=== PATIENT | male | born 1985 | race Hispanic/Latino ===

== ENCOUNTER 2019-07-04 11:15 | Inpatient (IN) | payer SELFPAY ==
[~2019-07-04] VITALS: Ht 162.6 cm; Wt 104.3 kg
[2019-07-04] MEDS ORDERED: PANTOPRAZOLE 40 MG 10ML VIAL IV STA (11:26)
[2019-07-04] MEDS ORDERED: SODIUM CHLORIDE 0.9% 1000ML 1,000 ML IV STA ×2 (11:26→11:30)
[2019-07-04] MEDS ORDERED: MORPHINE SULFATE INJ 4 MG/ML INJ 1ML IV STA (11:26)
[2019-07-04] MEDS ORDERED: ONDANSETRON HCL INJ 2MG/ML 2ML 2 MG/ML VIAL IV STA (11:26)
[2019-07-04] MEDS ORDERED: PIPER-TAZ 3.375 GM 50 ML IV ONE (11:30)
--- NOTE | 2019-07-04 11:40 | NUR ---
20 ga IV insterted to left AC. blood samples collected for orders including lactic acid, and blood cultures x2.
[2019-07-04 11:47] LABS: BASOPHILS # (AUTO) 0.1 (0.0-0.1); BASOPHILS % 0.6 % (0.0-1.0); EOSINOPHILS # (AUTO) 0.5 (0.0-0.4); EOSINOPHILS % 4.6 % (0.0-6.0); HEMATOCRIT 43.6 % (38.2-49.6); HEMOGLOBIN 14.9 g/dL (14.0-18.0); LYMPHOCYTES # (AUTO) 1.2 (1.0-3.2); LYMPHOCYTES % 10.8 % (18.0-39.1); MEAN CORPUSCULAR HEMOGLOBIN 28.4 pg (28-32); MEAN CORPUSCULAR HGB CONC 34.2 g/dL (31-35); MONOCYTES # (AUTO) 0.9 (0.2-0.8); MONOCYTES % 7.8 % (4.4-11.3); NEUTROPHILS # (AUTO) 8.5 (2.1-6.9); NEUTROPHILS % 75.8 % (38.7-80.0); PLATELET COUNT 274 x10e3/uL (140-360); RED BLOOD COUNT 5.25 x10e6/uL (4.3-5.7); RED CELL DISTRIBUTION WIDTH 12.9 % (11.7-14.4)
[2019-07-04 11:58] LABS: INR 0.88; PARTIAL THROMBOPLASTIN TIME 26.8 seconds (23.8-35.5); PROTHROMBIN TIME 12.5 seconds (11.9-14.5)
[2019-07-04 12:09] LABS: ALANINE AMINOTRANSFERASE 36 IU/L (0-55); ALKALINE PHOSPHATASE 114 IU/L (40-150); ANION GAP 26.2 mmol/L (8-16); BLOOD UREA NITROGEN 5 mg/dL (7-26); BUN/CREATININE RATIO 6 (6-25); CALCIUM 9.9 mg/dL (8.4-10.2); CARBON DIOXIDE 12 mmol/L (22-29); CHLORIDE 98 mmol/L (98-107); CREATINE KINASE 40 IU/L (30-200); CREATININE, SERUM 0.79 mg/dL (0.72-1.25); EST GLOMERULAR FILTRATION RATE > 60 ML/MIN (60-); GLUCOSE 274 mg/dL (74-118); LIPASE 168 U/L (8-78); MAGNESIUM 1.6 MG/DL (1.3-2.1); POTASSIUM 4.2 mmol/L (3.5-5.1); SODIUM 132 mmol/L (136-145)
--- NOTE | 2019-07-04 12:11 | Emergency Department Note ---
History of Present Illnes History of Present Illness Chief Complaint: Abdominal Complaints History of Present Illness This is a 34 year old male here for diffuse abdominal pain since Tuesday. states that pain is worse after eating and drinking. denies vomiting. Historian: Patient Arrival Mode: Car El Teacher Required: No Onset (how long ago): day(s) (2) Location: abd Quality: pain Radiation: non-radiation Severity: severe Onset quality: gradual Timing of current episode: constant Progression: worsening Chronicity: new Context: recent illness Relieving factors: none Exacerbating factors: none Associated symptoms: other (nausea, no vomiting) Treatments prior to arrival: none Past Medical/Family History Physician Review I have reviewed the patient's past medical and family history. Any updates have been documented here. Past Medical History Recent Fever: No Clinical Suspicion of Infectio: Yes New/Unexplained Change in Ment: No Past Medical History: Hypertension, Diabetes, Hyperlipedemia Other Medical History: PANCREATITIS Past Surgical History: Cholecysctectomy Social History Smoking Cessation: Former smoker Counseling Performed: No Alcohol Use: Social Any Illegal Drug Use: No TB Exposure/Symptoms: No Physically hurt or threatened: No Family History Family history of heart diseas: No Other Any Pre-Existing Lines (PICC,: No Review of Systems Review of Systems Constitutional: no symptoms EENTM: no symptoms Cardiovascular: no symptoms Respiratory: no symptoms Gastrointestinal: abdominal pain, nausea Genitourinary: no symptoms Musculoskeletal: no symptoms Neurological: no symptoms Psychological: no symptoms Endocrine: no symptoms Hematological/Lymphatic: no symptoms Review of other systems All other systems reviewed and negative. Physical Exam Related Data Allergies: Coded Allergies: No Known Allergies (Unverified , 07/04/19) Triage Vital Signs Vital Signs Date Time Temp Pulse Resp B/P (MAP) Pulse Ox O2 Delivery O2 Flow Rate FiO2 07/04/19 11:23 97.8 126 18 137/100 98 Physical Exam CONSTITUTIONAL Constitutional: well-developed, well-nourished HENT HENT: normocephalic, atraumatic, oropharynx clear/moist, nose normal HENT L/R: left ext ear normal, right ext ear normal EYES Eyes: PERRL, conjunctivae normal NECK Neck: ROM normal PULMONARY Pulmonary: effort normal, breath sounds normal CARDIOVASCULAR Cardiovascular: regular rhythm, heart sounds normal, capillary refill normal, tachycardia GASTROINTESTINAL Abdominal: soft, bowel sounds normal, tender (mod DOIRE/RUQ) GENITOURINARY Genitourinary: exam deferred SKIN Skin: warm, dry MUSCULOSKELETAL Musculoskeletal: ROM normal NEUROLOGICAL Neurological: alert, oriented x 3, no gross motor or sensory deficits PSYCHOLOGICAL Psychological: mood/affect normal, judgement normal Results Laboratory Result Diagram: 07/04/19 1132 Laboratory Laboratory Tests Test 07/04/19 13:43 07/04/19 11:32 Arterial Blood pH 7.35 (7.35-7.45) Arterial Blood Partial Pressure CO2 40 mmHg (35-45) Arterial Blood Partial Pressure O2 mmHg (80-105) Arterial Blood HCO3 22 mmol/L (22-26) Arterial Blood Oxygen Saturation % (95-98) Arterial Blood Base Excess -3.0 mmol/L (-2 - 3) FiO2 21 % White Blood Count 11.25 x10e3/uL (4.8-10.8) Red Blood Count 5.25 x10e6/uL (4.3-5.7) Hemoglobin 14.9 g/dL (14.0-18.0) Hematocrit 43.6 % (38.2-49.6) Mean Corpuscular Volume 83.0 fL (81-99) Mean Corpuscular Hemoglobin 28.4 pg (28-32) Mean Corpuscular Hemoglobin Concent 34.2 g/dL (31-35) Red Cell Distribution Width 12.9 % (11.7-14.4) Platelet Count 274 x10e3/uL (140-360) Neutrophils (%) (Auto) 75.8 % (38.7-80.0) Lymphocytes (%) (Auto) 10.8 % (18.0-39.1) Monocytes (%) (Auto) 7.8 % (4.4-11.3) Eosinophils (%) (Auto) 4.6 % (0.0-6.0) Basophils (%) (Auto) 0.6 % (0.0-1.0) Neutrophils # (Auto) 8.5 (2.1-6.9) Lymphocytes # (Auto) 1.2 (1.0-3.2) Monocytes # (Auto) 0.9 (0.2-0.8) Eosinophils # (Auto) 0.5 (0.0-0.4) Basophils # (Auto) 0.1 (0.0-0.1) Absolute Immature Granulocyte (auto 0.04 x10e3/uL (0-0.1) Prothrombin Time 12.5 seconds (11.9-14.5) Prothromb Time International Ratio 0.88 Activated Partial Thromboplast Time 26.8 seconds (23.8-35.5) Sodium Level 132 mmol/L (136-145) Potassium Level 4.2 mmol/L (3.5-5.1) Chloride Level 98 mmol/L (98-107) Carbon Dioxide Level 12 mmol/L (22-29) Anion Gap 26.2 mmol/L (8-16) Blood Urea Nitrogen 5 mg/dL (7-26) Creatinine 0.79 mg/dL (0.72-1.25) Estimat Glomerular Filtration Rate > 60 ML/MIN (60-) BUN/Creatinine Ratio 6 (6-25) Glucose Level 274 mg/dL (74-118) Lactic Acid Level 1.0 mmol/L (0.5-2.0) Calcium Level 9.9 mg/dL (8.4-10.2) Magnesium Level 1.6 MG/DL (1.3-2.1) Total Bilirubin 0.7 mg/dL (0.2-1.2) Aspartate Amino Transf (AST/SGOT) 20 IU/L (5-34) Alanine Aminotransferase (ALT/SGPT) 36 IU/L (0-55) Alkaline Phosphatase 114 IU/L (40-150) Creatine Kinase 40 IU/L (30-200) Creatine Kinase MB 0.60 ng/mL (0-5.0) Troponin I < 0.001 ng/mL (0-0.300) Total Protein 8.1 g/dL (6.5-8.1) Albumin 4.0 g/dL (3.5-5.0) Globulin 4.1 g/dL (2.3-3.5) Albumin/Globulin Ratio 1.0 (0.8-2.0) Lipase 168 U/L (8-78) Laboratory Tests Test 07/04/19 11:32 White Blood Count 11.25 x10e3/uL (4.8-10.8) Red Blood Count 5.25 x10e6/uL (4.3-5.7) Hemoglobin 14.9 g/dL (14.0-18.0) Hematocrit 43.6 % (38.2-49.6) Mean Corpuscular Volume 83.0 fL (81-99) Mean Corpuscular Hemoglobin 28.4 pg (28-32) Mean Corpuscular Hemoglobin Concent 34.2 g/dL (31-35) Red Cell Distribution Width 12.9 % (11.7-14.4) Platelet Count 274 x10e3/uL (140-360) Neutrophils (%) (Auto) 75.8 % (38.7-80.0) Lymphocytes (%) (Auto) 10.8 % (18.0-39.1) Monocytes (%) (Auto) 7.8 % (4.4-11.3) Eosinophils (%) (Auto) 4.6 % (0.0-6.0) Basophils (%) (Auto) 0.6 % (0.0-1.0) Neutrophils # (Auto) 8.5 (2.1-6.9) Lymphocytes # (Auto) 1.2 (1.0-3.2) Monocytes # (Auto) 0.9 (0.2-0.8) Eosinophils # (Auto) 0.5 (0.0-0.4) Basophils # (Auto) 0.1 (0.0-0.1) Absolute Immature Granulocyte (auto 0.04 x10e3/uL (0-0.1) Prothrombin Time 12.5 seconds (11.9-14.5) Prothromb Time International Ratio 0.88 Activated Partial Thromboplast Time 26.8 seconds (23.8-35.5) Sodium Level 132 mmol/L (136-145) Potassium Level 4.2 mmol/L (3.5-5.1) Chloride Level 98 mmol/L (98-107) Carbon Dioxide Level 12 mmol/L (22-29) Anion Gap 26.2 mmol/L (8-16) Blood Urea Nitrogen 5 mg/dL (7-26) Creatinine 0.79 mg/dL (0.72-1.25) Estimat Glomerular Filtration Rate > 60 ML/MIN (60-) BUN/Creatinine Ratio 6 (6-25) Glucose Level 274 mg/dL (74-118) Lactic Acid Level 1.0 mmol/L (0.5-2.0) Calcium Level 9.9 mg/dL (8.4-10.2) Magnesium Level 1.6 MG/DL (1.3-2.1) Total Bilirubin 0.7 mg/dL (0.2-1.2) Aspartate Amino Transf (AST/SGOT) 20 IU/L (5-34) Alanine Aminotransferase (ALT/SGPT) 36 IU/L (0-55) Alkaline Phosphatase 114 IU/L (40-150) Creatine Kinase 40 IU/L (30-200) Creatine Kinase MB 0.60 ng/mL (0-5.0) Troponin I < 0.001 ng/mL (0-0.300) Total Protein 8.1 g/dL (6.5-8.1) Albumin 4.0 g/dL (3.5-5.0) Globulin 4.1 g/dL (2.3-3.5) Albumin/Globulin Ratio 1.0 (0.8-2.0) Lipase 168 U/L (8-78) Laboratory Tests Test 07/04/19 11:32 White Blood Count 11.25 x10e3/uL (4.8-10.8) Red Blood Count 5.25 x10e6/uL (4.3-5.7) Hemoglobin 14.9 g/dL (14.0-18.0) Hematocrit 43.6 % (38.2-49.6) Mean Corpuscular Volume 83.0 fL (81-99) Mean Corpuscular Hemoglobin 28.4 pg (28-32) Mean Corpuscular Hemoglobin Concent 34.2 g/dL (31-35) Red Cell Distribution Width 12.9 % (11.7-14.4) Platelet Count 274 x10e3/uL (140-360) Neutrophils (%) (Auto) 75.8 % (38.7-80.0) Lymphocytes (%) (Auto) 10.8 % (18.0-39.1) Monocytes (%) (Auto) 7.8 % (4.4-11.3) Eosinophils (%) (Auto) 4.6 % (0.0-6.0) Basophils (%) (Auto) 0.6 % (0.0-1.0) Neutrophils # (Auto) 8.5 (2.1-6.9) Lymphocytes # (Auto) 1.2 (1.0-3.2) Monocytes # (Auto) 0.9 (0.2-0.8) Eosinophils # (Auto) 0.5 (0.0-0.4) Basophils # (Auto) 0.1 (0.0-0.1) Absolute Immature Granulocyte (auto 0.04 x10e3/uL (0-0.1) Lab results reviewed: Yes Laboratory comments HIGH ANION GAP ACIDOSIS ON CHEM'S, GLU ELEVATED AT 274 - ABG IS GOOD WITH pH 7.35, pCO2 40, HCO3 22.3 Imaging Imaging results reviewed: Yes Impressions X-ray chest AP portable Comparison: None History: Epigastric pain Findings: Apical lordotic view with slight rotation. Central airways, cardiomediastinal silhouettes, diaphragms or lung garcia, pleural spaces, visualized skeletal structures and upper abdomen unremarkable for significant malady. Impression: No acute abnormality on this exam. Signed by: Travis Carmona MD on 07/04/2019 1:[address] of the abdomen and pelvis. Comparison: None Clinical History: Abdominal pain Technique: Helical CT scan of the abdomen and pelvis was performed. Intravenous contrast administration was utilized. Oral contrast administration was not utilized. Coronal and sagittal reconstructions were generated from the raw data. Multiple images were submitted for interpretation. This exam was performed according to our departmental dose-optimization program which includes automated exposure control, adjustment of the mA and/or kV according to patient size Discussion: Inferior chest: Unremarkable. Liver: Diffuse fatty infiltration Spleen: Unremarkable Pancreas: Acute pancreatitis most marked in the region of the pancreatic head neck and proximal body with extension of infiltration and inflammation into the peripancreatic regions and the small bowel mesentery. No definite necrosis. No definite air to suggest abscess formation. No pseudocysts. Biliary tree and gallbladder: Post cholecystectomy. Otherwise unremarkable. Adrenal glands: Unremarkable Kidneys and ureters: Small cortical renal cysts to small to characterize. Otherwise unremarkable Vasculature: Unremarkable Lymph nodes: Unremarkable Bowel: Unremarkable Pelvis: Urinary bladder is unremarkable. Prostate unremarkable. Seminal vesicles unremarkable. Pelvic wall unremarkable. Peritoneum: No ascites Perineal compartments: unremarkable. Fluid: As above Bones: Minimal degenerative changes Body wall: Unremarkable Impression: Findings of acute pancreatitis as described above. 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 Assessment & Plan Reassessment Reassessment 1525 - pt still in pain. Will admit to on-call Dr Reed Assessment & Plan Final Impression: (1) Pancreatitis, alcoholic, acute Assessment & Plan CHECK CBC, CHEM'S, LIPASE, UA, CX'S, CT ABD/PELVIS, ABG - R/O PANCREATITIS, COLITIS, RENAL INSUFF, ELECTROLYTE ABNL, DKA Last Vital Signs Date Time Temp Pulse Resp B/P (MAP) Pulse Ox O2 Delivery O2 Flow Rate FiO2 07/04/19 11:23 97.8 126 18 137/100 98 Medications in the ED Pantoprazole Sodium 40 mg ONCE STAT IV ; Start 07/04/19 at 11:26; Stop 07/04/19 at 11:27 Morphine Sulfate 4 mg ONCE STAT IV ; Start 07/04/19 at 11:26; Stop 07/04/19 at 11:27 Ondansetron HCl 4 mg ONCE STAT IV ; Start 07/04/19 at 11:26; Stop 07/04/19 at 11:27 Sodium Chloride 1,000 ml @ 0 mls/hr Q0M STAT IV ; Start 07/04/19 at 11:26; Stop 07/04/19 at 11:27 Piperacillin Sod/ Tazobactam Sod 50 ml @ 50 mls/hr NOW ONCE IV ; Start 07/04/19 at 11:30; Stop 07/04/19 at 12:29 Sodium Chloride 1,000 ml @ 0 mls/hr Q0M STAT IV ; Start 07/04/19 at 11:30; Stop 07/04/19 at 11:31 AV BECKWITH MD July 04, 2019 12:11
--- NOTE | 2019-07-04 12:30 | NUR ---
unable to verify home medications at this time. Patient states that he takes metformin for DM, but does not know the dose. He also states that he takes medication for cholesterol, but does not know the name. He denies the use of blood pressure medications.
[2019-07-04] MEDS ORDERED: SODIUM CHLORIDE 0.9% 50ML 50 ML ONE (12:44)
[2019-07-04] MEDS ORDERED: IOPAMIDOL 370 MG/ML 200 ML INFUS..BTL INJ ONE (12:45)
--- NOTE | 2019-07-04 13:10 | Diagnostic Imaging Report ---
X-ray chest AP portable Comparison: None History: Epigastric pain Findings: Apical lordotic view with slight rotation. Central airways, cardiomediastinal silhouettes, diaphragms or lung garcia, pleural spaces, visualized skeletal structures and upper abdomen unremarkable for significant malady. Impression: No acute abnormality on this exam. Signed by: Travis Carmona MD on 07/04/2019 1:06 PM
[2019-07-04 14:10] LABS: ABG HCO3 22 mmol/L (22-26); ABG PCO2 40 mmHg (35-45); ABG PH 7.35 (7.35-7.45)
--- NOTE | 2019-07-04 14:56 | Diagnostic Imaging Report ---
CT of the abdomen and pelvis. Comparison: None Clinical History: Abdominal pain Technique: Helical CT scan of the abdomen and pelvis was performed. Intravenous contrast administration was utilized. Oral contrast administration was not utilized. Coronal and sagittal reconstructions were generated from the raw data. Multiple images were submitted for interpretation. This exam was performed according to our departmental dose-optimization program which includes automated exposure control, adjustment of the mA and/or kV according to patient size Discussion: Inferior chest: Unremarkable. Liver: Diffuse fatty infiltration Spleen: Unremarkable Pancreas: Acute pancreatitis most marked in the region of the pancreatic head neck and proximal body with extension of infiltration and inflammation into the peripancreatic regions and the small bowel mesentery. No definite necrosis. No definite air to suggest abscess formation. No pseudocysts. Biliary tree and gallbladder: Post cholecystectomy. Otherwise unremarkable. Adrenal glands: Unremarkable Kidneys and ureters: Small cortical renal cysts to small to characterize. Otherwise unremarkable Vasculature: Unremarkable Lymph nodes: Unremarkable Bowel: Unremarkable Pelvis: Urinary bladder is unremarkable. Prostate unremarkable. Seminal vesicles unremarkable. Pelvic wall unremarkable. Peritoneum: No ascites Perineal compartments: unremarkable. Fluid: As above Bones: Minimal degenerative changes Body wall: Unremarkable Impression: Findings of acute pancreatitis as described above. Signed by: Travis Carmona MD on 07/04/2019 2:53 PM
[2019-07-04] MEDS ORDERED: HYDROMORPHONE 1MG/1ML INJ IV PRN (15:45)
[2019-07-04] MEDS ORDERED: DEXTROSE 50% SYRINGE 50 ML IV PRN ×2 (15:45→23:00)
[2019-07-04 15:51] LABS: CHOL/HDL RATIO 15.8 (3.9-4.7); CHOLESTEROL 395 MD/DL (0-199); HDL CHOLESTEROL 25 MG/DL (40-60)
[2019-07-04 16:12] LABS: TRIGLYCERIDES 1948 MG/DL (0-149)
[2019-07-04] MEDS: INSULIN LISPRO 100 UNIT/1 ML 3ML VIAL SQ SCH ×2 (16:30→21:00)
[2019-07-04 16:33] LABS: BILIRUBIN,URINE SMALL (NEGATIVE); CLARITY,URINE SL CLOUDY (CLEAR); COLOR,URINE YELLOW (YELLOW); KETONES,URINE 2+ (NEGATIVE); LEUKOCYTE ESTERASE ,URINE NEGATIVE (NEGATIVE); NITRITE,URINE NEGATIVE (NEGATIVE); PROTEIN,URINE DIPSTICK 1+ (NEGATIVE); URINE UROBILINOGEN 0.2 mg/dL (0.2 - 1)
[2019-07-04 16:34] LABS: AMPHETAMINES SCREEN,URINE NEGATIVE (NEGATIVE); BENZODIAZEPINES SCREEN,URINE NEGATIVE (NEGATIVE); PHENCYCLIDINE SCREEN,URINE NEGATIVE (NEGATIVE)
[2019-07-04 16:56] LABS: BACTERIA,URINE FEW /HPF; RBC,URINE 0-5 /HPF (0-5)
[2019-07-04] MEDS: SODIUM CHLORIDE 0.9% 1000ML 1,000 ML IV SCH ×2 (17:29→20:32)
[2019-07-04] MEDS: ONDANSETRON HCL INJ 2MG/ML 2ML 2 MG/ML VIAL IV PRN ×2 (17:30→21:47)
--- NOTE | 2019-07-04 17:32 | NUR ---
attempted to call report, nurse not available at the moment.
--- NOTE | 2019-07-04 18:00 | NUR ---
Covid test performed.
--- NOTE | 2019-07-04 18:30 | NUR ---
RECEIVED PATIENT FROM ER TO ROOM 284, PATIENT IN STABLE CONDITION. IV LINE TO LEFT AC PATENT, NS @ 125CC/HR. ADMISSION HISTORY AND INITIAL PHYSICAL ASSESSMENT COMPLETED AND DOCUMENTED. PATIENT ORIENTED TO ROOM AND POLICIES. CALL LIGHT WITHIN REACH. BED IN THE LOWEST POSITION.
[2019-07-04 18:32] VITALS: BP 122/83
[2019-07-04] MEDS ORDERED: METFORMIN HCL500 MG PO (18:32)
[2019-07-04 18:38] VITALS: BP 122/83
--- NOTE | 2019-07-04 18:52 | NUR ---
BEDSIDE SHIFT REPORT GIVEN TO ONCOMING NURSE. PATIENT IS IN STABLE CONDITION, NO ACUTE DISTRESS NOTED. CALL LIGHT WITHIN REACH. BED IN THE LOWEST POSITION.
--- NOTE | 2019-07-04 19:30 | NUR ---
patient received awake, alert, lying quietly in bed. no c/o pain noted. ivf continue to infuse without difficulty. Telemetry #20 placed on patient per orders due to elevated heart rate. pm assessment complete. patient instructed to call for assistance when needed.
[2019-07-04 20:00] VITALS: BP 155/91
[2019-07-04 21:20] VITALS: BP 135/91
[2019-07-04] MEDS: HYDROMORPHONE 1MG/1ML INJ IV PRN (21:47)
--- NOTE | 2019-07-04 21:47 | NUR ---
patient medicated with dilaudid 0.5mg and zofran 4mg ivp given for c/o right lower back/abd pain 08/23 at this time per patients request.
[2019-07-04] MEDS ORDERED: HYDRALAZINE HCL 20 MG/ML VIAL IV PRN (23:15)
--- NOTE | 2019-07-04 23:30 | NUR ---
here to see patient. new orders noted.
[2019-07-04] MEDS: SODIUM BICARBONATE 650 MG TAB PO SCH (23:48)
[2019-07-04] MEDS: ENOXAPARIN SOD INJ 40 MG/0.4 ML SYR SC SCH (23:48)
[2019-07-04] MEDS: MEROPENEM 500MG 500 MG in SODIUM CHLORIDE 0.9% 50ML 50 ML IV SCH (23:48)
[2019-07-04] MEDS ORDERED: MEROPENEM 500MG/ NS 50ML 50 ML ONE (23:48)
[2019-07-04] MEDS: LACTATED RINGER'S 1,000 ML INJ SCH (23:48)
[2019-07-05] VITALS (8 sets, daily range): BP systolic 124–146; BP diastolic 78–89
--- NOTE | 2019-07-05 | NUR ---
stat bmp collected and sent to lab at this time.
[2019-07-05 00:47] LABS: ANION GAP 17.6 mmol/L (8-16); BLOOD UREA NITROGEN 5 mg/dL (7-26); BUN/CREATININE RATIO 8 (6-25); CALCIUM 8.8 mg/dL (8.4-10.2); CARBON DIOXIDE 18 mmol/L (22-29); CHLORIDE 100 mmol/L (98-107); CREATININE, SERUM 0.62 mg/dL (0.72-1.25); EST GLOMERULAR FILTRATION RATE > 60 ML/MIN (60-); GLUCOSE 170 mg/dL (74-118); POTASSIUM 3.6 mmol/L (3.5-5.1); SODIUM 132 mmol/L (136-145)
--- NOTE | 2019-07-05 00:52 | NUR ---
stat bmp results called to at this time per orders. no new orders noted at this time.
--- NOTE | 2019-07-05 02:26 | History and Physical ---
CHIEF COMPLAINT: Abdominal pain, acute pancreatitis. HISTORY OF PRESENT ILLNESS: A 34-year-old male, morbidly obese, with known history of hypertension, hyperlipidemia, chronic alcohol abuse, very noncompliant with his medical care, comes into the ED with complaints of abdominal pain. The patient reports that he has had several episodes of acute pancreatitis in the past due to alcohol abuse. He reports his last alcohol drink was Tuesday of this last week. He reports drinking 6 cans of beer. He suddenly noticed acute onset of abdominal pain over the last day or 2 and came into the ED for further evaluation and management. While here, his CT scan shows evidence of acute pancreatitis with severe inflammation. No evidence of pseudocyst or pseudo collection. Lipase level was slightly elevated, but has elevated triglycerides. The patient was seen and evaluated at bedside on the medical floor. He is currently doing well with no other issues at this time. REVIEW OF SYSTEMS: Pertinent positives; abdominal pain and nausea. The rest of 14-point review of systems are reviewed with the patient and are negative. ALLERGIES: NO KNOWN DRUG ALLERGIES. HOME MEDICATIONS: Metformin 500 mg twice daily, that is it. PAST MEDICAL HISTORY: Diabetes, hypertension, chronic alcohol abuse, hyperlipidemia, history of chronic pancreatitis in the past due to alcohol abuse. PAST SURGICAL HISTORY: Reports none. FAMILY HISTORY: Hypertension and diabetes. SOCIAL HISTORY: He is a chronic drinker. He used to drink at least 6-pack a day. He has decreased. He states his last drink he reports was Tuesday of this last week. He drinks 6 beers. He is a smoker. Denies drugs. Does not work. PHYSICAL EXAMINATION: VITAL SIGNS: Temperature is 98.1, pulse 111, respiratory rate is 20, blood pressure was 155/91, and pulse ox 98% on room air. GENERAL: He was resting comfortably when I evaluated him. He was watching TV. Not in acute distress, alert and oriented x3. He was cooperative. PULMONARY: Clear to auscultation bilaterally. No wheezing, rales, or rhonchi. No crackles appreciated. CARDIOVASCULAR: Positive S1 and S2. No murmurs, rubs, or gallops appreciated. ABDOMEN: He was tender to palpation in the epigastric region, but very mild, but was receiving pain medications. No rebound. No guarding. Bowel sounds were present. MUSCULOSKELETAL: Strength is 5/5 throughout. NEUROLOGIC: Cranial nerves II through XII grossly intact. SKIN: Intact, warm to touch. Good cap refill. PSYCHIATRIC: Normal affect and mood. EXTREMITIES: No edema. Good range of motion throughout. LABORATORY DATA: White count 11.2, hemoglobin 14.9, hematocrit is 44, and platelets of 274. His ABG shows a pH of 7.35, pCO2 of 40, bicarbonate 22, FiO2 of 21. Coagulation; PT 12, INR 0.88, PTT 26.8. Chemistry; sodium 132, potassium 4.2, chloride 98, bicarbonate was 12, anion gap of 26, BUN 5, creatinine is 0.79, glucose was 274, repeat point of care was 201. Lactic acid 1, calcium 9.9, magnesium 1.6, total bilirubin is 0.7, AST 20, ALT 32, alkaline phosphatase 114. CK 40. Troponins negative. Albumin 4. Triglycerides are 1948, LDL was unmeasurable, lipase 168. Urinalysis negative. Urine drug screen positive for opioids. Coronavirus PCR pending. Blood and urine cultures are pending. IMAGING STUDIES: CT abdomen and pelvis shows findings consistent with acute pancreatitis in the region of the pancreatic head, neck, proximal body with extensive of infiltration and inflammation into the peripancreatic regions and in the small bowel mesentery. No definite necrosis. No definite air to assess abscess formation or pseudocyst. Chest x-ray, no acute abnormality. IMPRESSION: 1. Acute pancreatitis secondary to alcohol abuse. 2. Chronic alcohol abuse. 3. Uncontrolled type 2 diabetes. 4. Hyperlipidemia. 5. Hypertension. 6. Metabolic acidosis. PLAN: At this time for his acute pancreatitis, we will continue the patient on n.p.o. We will put him on Lactated Ringer at 150 mL/h, pain control, GI consultation, get lipase level repeat in the morning. We will keep the patient n.p.o. for now and consider initiation of diet if his symptoms improve tomorrow. Continue with insulin sliding scale, Accu-Cheks, get an A1c in the morning. Resume same home medications except for the metformin. Add losartan for blood pressure as well as p.r.n. hydralazine. Add sodium bicarbonate tablets 1300 mg twice daily, first dose now. We will get labs in the morning. We will get a serum ketone as well stat now with stat labs. Otherwise, we will continue to monitor very closely. I did add Lipitor for his hypertriglyceridemia. May need to add Tricor for as well. Put on Lovenox for DVT prophylaxis. Plan of care discussed with the patient and nursing staff. The patient was stable prior to me leaving and he was doing well with no other issues. MD WILLIAM Resendiz/EMILY /[id number]
[2019-07-05] MEDS: ONDANSETRON HCL INJ 2MG/ML 2ML 2 MG/ML VIAL IV PRN ×5 (04:00→20:43)
[2019-07-05] MEDS: HYDROMORPHONE 1MG/1ML INJ IV PRN ×5 (04:00→20:43)
--- NOTE | 2019-07-05 04:00 | NUR ---
patient medicated with dilaudid 0.5mg and zofran 4mg ivp for c/o right abd/back 08/23 at this time per patients request.
[2019-07-05] MEDS: MEROPENEM 500MG 500 MG in SODIUM CHLORIDE 0.9% 50ML 50 ML IV SCH (05:26)
[2019-07-05] MEDS ORDERED: MEROPENEM 500MG/ NS 50ML 50 ML ONE (05:27)
[2019-07-05 06:35] LABS: BASOPHILS % 0.6 % (0.0-1.0); EOSINOPHILS # (AUTO) 0.5 (0.0-0.4); EOSINOPHILS % 7.3 % (0.0-6.0); HEMATOCRIT 37.1 % (38.2-49.6); HEMOGLOBIN 12.2 g/dL (14.0-18.0); LYMPHOCYTES # (AUTO) 1.3 (1.0-3.2); LYMPHOCYTES % 19.7 % (18.0-39.1); MEAN CORPUSCULAR HGB CONC 32.9 g/dL (31-35); MEAN CORPUSCULAR VOLUME 85.3 fL (81-99); MONOCYTES # (AUTO) 0.6 (0.2-0.8); MONOCYTES % 8.9 % (4.4-11.3); NEUTROPHILS # (AUTO) 4.2 (2.1-6.9); PLATELET COUNT 191 x10e3/uL (140-360); RED BLOOD COUNT 4.35 x10e6/uL (4.3-5.7)
--- NOTE | 2019-07-05 06:40 | NUR ---
Received bedside shift report from off going nurse. Patient is resting in bed, no acute distress noted. Call light within reach. Bed in the lowest position.
[2019-07-05 07:00] LABS: ALANINE AMINOTRANSFERASE 36 IU/L (0-55); ALBUMIN 3.2 g/dL (3.5-5.0); ALKALINE PHOSPHATASE 104 IU/L (40-150); BLOOD UREA NITROGEN 5 mg/dL (7-26); BUN/CREATININE RATIO 8 (6-25); CALCIUM 9.1 mg/dL (8.4-10.2); CARBON DIOXIDE 21 mmol/L (22-29); CHLORIDE 100 mmol/L (98-107); CREATININE, SERUM 0.62 mg/dL (0.72-1.25); EST GLOMERULAR FILTRATION RATE > 60 ML/MIN (60-); GLUCOSE 177 mg/dL (74-118); LIPASE 103 U/L (8-78); SODIUM 135 mmol/L (136-145)
[2019-07-05] MEDS: LACTATED RINGER'S 1,000 ML INJ SCH ×3 (07:13→20:43)
[2019-07-05] MEDS: INSULIN LISPRO 100 UNIT/1 ML 3ML VIAL SQ SCH ×4 (07:30→21:00)
[2019-07-05] MEDS: SODIUM BICARBONATE 650 MG TAB PO SCH ×2 (08:00→16:40)
[2019-07-05] MEDS: LOSARTAN POTASSIUM 25 MG TAB PO SCH (08:00)
--- OUTSIDE RECORDS SUMMARY | 2019-07-05 08:54 | XMS REPORT | Clinical Summary ---
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 8 diagnosed diabetes Active lancets 28 Use 2 times 100 Each 11 gaugeIndications: Type 2 daily as 8 diabetes mellitus without needed complication, with long-term current use of insulin Active blood glucose (PRECISION Check blood 50 Each 11 0 XTRA TEST STRIPS) test glucose 2 8 stripsIndications: Type 2 times daily diabetes mellitus without complication, with long-term current use of insulin 09/13/2018 Discontinued (Reorder) lisinopril (PRINIVIL) 5 Take 1 tablet 90 tablet 0 mg tabletIndications: by mouth 8 Essential hypertension daily. 09/13/2018 Discontinued (Therapy comple obey) INSULIN SYRINGE 0.5mL Use to inject 2 Box 3 30GX5/16" (MONOJECT medication 5 8 ULTRACOMFORT INSULIN SYR times daily. 0.5ML 30GX5/16") Use a new syringe-needleIndications syringe each : Type 2 diabetes time. mellitus without complication, with long-term current use of insulin 09/13/2018 Discontinued (Reorder) metFORMIN (GLUCOPHAGE) Take 1 tablet 60 tablet 3 1 500 mg tabletIndications: by mouth 2 8 Type 2 diabetes mellitus times daily without complication, (with meals) with long-term current For diabetes. use of insulin 09/13/2018 Discontinued (Reorder) atorvastatin (LIPITOR) 20 Take 1 tablet 90 tablet 1 mg tabletIndications: by mouth at 8 Hyperlipidemia, bedtime unspecified nightly. hyperlipidemia type 09/13/2018 Discontinued (Therapy comple obey) ibuprofen (MOTRIN) 800 mg Take 1 tablet 60 tablet 0 tabletIndications: by mouth 9 Lateral epicondylitis of every 8 hours left elbow as needed for Pain. 09/13/2018 tropicamide (MYDRIACYL) Instill 1 15 mL 0 0.5 % ophthalmic Drop in each 9 solutionIndications: Type eye once as 2 diabetes mellitus needed for up without complication, to 1 dose with long-term current (for poor use of insulin retina scan image). 09/13/2018 Discontinued (Reorder) metFORMIN (GLUCOPHAGE) Take 1 tablet 180 tablet 0 0 500 mg tabletIndications: by mouth 2 9 Type 2 diabetes mellitus times daily without complication, (with meals) with long-term current For diabetes. use of insulin 09/13/2018 Discontinued (Reorder) atorvastatin (LIPITOR) 20 Take 1 tablet 90 tablet 0 mg tabletIndications: by mouth at 9 Hyperlipidemia, bedtime unspecified nightly. hyperlipidemia type 09/13/2018 Discontinued (Reorder) lisinopril (PRINIVIL) 5 Take 1 tablet 90 tablet 0 mg tabletIndications: by mouth 9 Essential hypertension daily. 09/13/2018 Discontinued (Reorder) fenofibrate Take 1 tablet 90 tablet 0 nanocrystallized (TRICOR) by mouth 9 145 mg tabletIndications: daily. Hypertriglyceridemia 06/14/2019 Discontinued (Therapy comple obey) atorvastatin (LIPITOR) 20 Take 1 tablet 90 tablet 0 mg tabletIndications: by mouth at 9 Hyperlipidemia, bedtime unspecified nightly. hyperlipidemia type 06/14/2019 Discontinued (Therapy comple obey) fenofibrate Take 1 tablet 90 tablet 0 nanocrystallized (TRICOR) by mouth 9 145 mg tabletIndications: daily. Hypertriglyceridemia 06/14/2019 Discontinued (Therapy comple obey) lisinopril (PRINIVIL) 5 Take 1 tablet 90 tablet 0 mg tabletIndications: by mouth 9 Essential hypertension daily. 06/14/2019 Discontinued (Therapy comple obey) metFORMIN (GLUCOPHAGE) Take 1 tablet 180 tablet 0 0 500 mg tabletIndications: by mouth 2 9 Type 2 diabetes mellitus times daily without complication, (with meals) with long-term current For diabetes. use of insulin 06/14/2019 Discontinued (Therapy comple obey) ibuprofen (MOTRIN) 400 mg Take 1 tablet 60 tablet 1 tabletIndications: Elbow by mouth 9 pain, chronic, left every 12 hours as needed for Pain (take with food). Active Problems Problem Noted Date Essential hypertension 11/10/2017 Encounters Care Team Description Date Type Specialty Trung Bradshaw MD Rash and other nonspecific skin eruption (Primary Dx) 06/14/2019 Telemedicine Family Practice Trung Bradshaw MD 09/13/2018 Ancillary Radiology Procedure Trung Bradshaw MD Type 2 diabetes mellitus without complic ation, with long-term current use of insulin 09/13/2018 Ancillary Ophthalmology Procedure Trung Bradshaw MD Elbow pain, chronic, left (Primary Dx); Type 2 diabetes mellitus without complication, with long-term current use of insulin; Hyperlipidemia, unspecified hyperlipidemia type; Essential hypertension; Hypertriglyceridemia 09/13/2018 Office Visit Family Practice Dominga Monaco NP Lateral epicondylitis of left elbow (Arianne samia Dx); Type 2 diabetes mellitus without complication, without long-term current use of insulin 07/26/2018 Same Day Family Practice after 07/03/2018 Immunizations Name Administration Dates Next Due Influenza, 12/19/2017 Vaccine<FLUCELVAX>(Multi- Dose) PPV 23 (Pneumococcal 11/10/2017 Polysaccharide 23 Valent) Tdap (Tetanus Toxoid, 11/10/2017 Reduced Diphtheria Toxoid And Acellular Pertussis, Absorbed) Family History Relation Name Status Comments Brother 1 Father Alive Maternal Grandfather Maternal Grandmother Alive Mother Alive Paternal Grandfather Paternal Grandmother Sister 1 Alive Social History Date Tobacco Use Types Packs/Day Years Used Current Every Day Smoker Smokeless Tobacco: Never Used Tobacco Cessation: Counseling Given: Yes Drinks/Week oz/Week Comments Alcohol Use vodka Yes Food Insecurity Answer Date Recorded Within the past 12 months, you worried that your Never andrew e 11/10/2017 food would run out before you got money to buy more. Within the past 12 months, the food you bought Never true 11/10/2017 just didn't last and you didn't have mo donna to get more. Sex Assigned at Date Recorded Not on file Industry Job Start Date Occupation Not on file Not on file Not on file Travel End Travel History Travel Start No recent travel history available. Date Recorded COVID-19 Exposure Response 06/14/2019 2:05 PM CDT In the last month, have you been in contact with No / Unsure someone who was confirmed or suspected to have Coronavirus / COVID-19? Last Filed Vital Signs Reading Time Taken Comments Vital Sign 130/85 09/13/2018 10:44 AM CDT Blood Pressure 98 09/13/2018 11:36 AM CDT manual radial pu lse Pulse 36.9 C (98.5 F) 09/13/2018 10:44 AM CDT Temperature 18 09/13/2018 10:44 AM CDT Respiratory Rate 100% 07/26/2018 3:25 PM CDT Oxygen Saturation - - Inhaled Oxygen Concentration 109.7 kg (241 lb 12.8 oz) 09/13/2018 10:44 AM CDT Weight 162.6 cm (5' 4") 09/13/2018 10:44 AM CDT Height 41.5 09/13/2018 10:44 AM CDT Body Mass Index Plan of Treatment Care Team Description Date Type Specialty 09/07/2019 Office Visit Dermatology Health Maintenance Due Date Last Done Comments DM Microalbumin Urine 11/10/2018 11/10/2017 Scrn (Yearly) DM Foot Exam (Yearly) 12/19/2018 12/19/2017, 10/16, 09/23/2017 DM HGBA1C (Yearly) 09/14/2019 09/13/2018, 018, 11/10/2017 DM Retinal Exam (Yearly) 09/14/2019 09/13/2018, 0 11/10/2017 IMM Influenza Seasonal 11/15/2019 12/19/2017 Oct to April (>/= 19 yrs) Procedures Comments Procedure Name Priority Date/Time Associated Diag nosis XRAY ELBOW 3 VIEWS MIN Routine 09/13/2018 Essenti al hypertension 12:55 PM CDT COMPREHENSIVE METABOLIC Routine 09/13/2018 Type 2 diabetes mellitus PANEL 11:59 AM CDT without complicatio n, with long-term current use of insulin HEMOGLOBIN A1C Routine 09/13/2018 Type 2 diabetes mellitus 11:59 AM CDT without complication, with long-term current use of insulin LIPID PROFILE Routine 09/13/2018 Type 2 diabetes mellitus 11:59 AM CDT without complication, with long-term current use of insulin OPHTHALMOLOGY RETINAL Routine 09/13/2018 Type 2 d iabetes mellitus SCAN 11:54 AM CDT without complicatio n, with long-term current use of insulin GLUCOSE POC Routine 07/26/2018 5:04 PM CDT after 07/03/2018 Results * XRAY ELBOW 3 VIEWS MIN (09/13/2018 12:55 PM CDT) Specimen Impressions Performed At IMPRESSION: SMS Scattered degenerative change. No osseo us erosion Dictated By: Asael Pérez MD, 09/13/2018 1: 58 PM I have reviewed the study and agree wit h the findings in this report. Signed By: Buddy Davies MD, 09/13/2018 1: 59 PM Narrative Performed At X-RAY LEFT ELBOW - 3 image(s) SMS HISTORY: Left elbow pain for 4 mths COMPARISON: None DISCUSSION: Bone: No acute displaced fracture. No aggressive osseous lesion. Joints: Scattered degenerative change. No osseo us erosion No dislocation. Soft tissues: Appear unremarkable. Procedure Note Interface, Rad/Mammog In - 09/13/2018 2:05 PM CDT X-RAY LEFT ELBOW - 3 image(s) HISTORY: Left elbow pain for 4 mths COMPARISON: None DISCUSSION: Bone: No acute displaced fracture. No aggressive osseous lesion. Joints: Scattered degenerative change. No osseous erosion No dislocation. Soft tissues: Appear unremarkable. IMPRESSION IMPRESSION: Scattered degenerative change. No osseous erosion Dictated By: Asael Pérez MD, 09/13/2018 1:58 PM I have reviewed the study and agree with the findings in this report. Signed By: Buddy Davies MD, 09/13/2018 1:59 PM Performing Organization Address [facility] one Number SMS * Hemoglobin A1C (09/13/2018 11:59 AM CDT) Hemoglobin A1c 7.6 (H) 4.3 - 6.1 % [facility] Estimated 171 (H) 70 - 110 mg/dL [facility] Average Glucose [facility]ORY Specimen Blood Performing Organization Address [facility] one Number [facility] [address] [place] [address] [phone] * Comprehensive Metabolic Panel (09/13/2018 11:59 AM CDT) Pathologist [facility] Sodium 138 136 - 145 mmol/L [facility] Potassium 4.8 3.5 - 5.1 mmol/L [facility] Chloride 103 98 - 107 mmol/L [facility] CO2 26 21 - 31 mmol/L [facility] Glucose 148 (H) 70 - 110 mg/dL [facility] Calcium 9.4 8.6 - 10.3 mg/dL [facility] Urea Nitrogen 15.0 7.0 - 25.0 mg/dL [facility] Creatinine 0.9 0.7 - 1.3 mg/dL [facility] Alkaline 77 34 - 104 U/L [facility] Phosphatase [facility] ALT 79 (H) 7 - 52 U/L [facility] AST 37 13 - 39 U/L [facility] Bilirubin, 0.4 0.2 - 1.2 mg/dL [facility] Total [facility] Total Protein 6.8 6.0 - 8.3 g/dL [facility] GFR, Estimated >90 >=90 mL/min/1.73 m2 [facility] Albumin 4.5 4.2 - 5.5 g/dL [facility] Anion Gap 9 5 - 16 mmol/L [facility] Specimen Blood Performing Organization Address [facility] one Number [facility] [address] [place] [address] * Lipid Profile (09/13/2018 11:59 AM CDT) Pathologist [facility] Cholesterol 244.0 (H) <=200.0 mg/dL [facility] Comment: [facility] Desirable: < 200.0 mg/dL Borderline: 200 - 240 mg/dL High Risk: > 240 mg/dL Triglyceride 990 (H) <150 mg/dL [facility] Comment: [facility] Normal: < 150.0 mg/dL Borderline: 150-199 mg/dL High: 200-499 mg/dL Very High: >= 500 mg/dL HDL 31.0 See Reference Range [facility] Comment: Narrative. mg/dL [facility] Increased CHD Risk: < 40.0 mg/dL Decreased CHD Risk: > 60 mg/dL LDL Comment: Triglyceride value is <100 mg/dL [facility] > 400 mg/dl. Unable to LABORATORY calculate LDL value due to high triglyceride. Specimen Blood Performing Organization Address [facility] Ph one Number [facility] [address] [place] [address] * OPHTHALMOLOGY RETINAL SCAN (09/13/2018 11:54 AM CDT) RETINAL NORMAL IRIS SCAN-FINAL RESULT Right Diabetic None IRIS Retinopathy Right Macular None IRIS Edema Right Other None IRIS Suspected Conditions Right Image Gradeable Image IRIS Quality Left Diabetic None IRIS Retinopathy Left Macular None IRIS Edema Left Other None IRIS Suspected Conditions Left Image Gradeable Image IRIS Quality Specimen Narrative Performed At Retinal Study Result for PHILIPBLAIR BLAIR REYNA a 33 y/o, Fred (: 1985, ) [facility] 09[facility]13[facility]2018 for a retinal imaging study of the left and r ight eyes. Based on the findings of the study, the following is recommended for PHILIPBLAIR MOMIN Normal Scan: Please advise the patient to return for another scan in 1 year. Interpreting Provider's Comments: No comments provided Right Eye Findings: Normal Result. Negative for Diabetic Retinopathy. Left Eye Findings: Normal Result. Negative for Diabetic Retinopathy. This result was electronically signed Trev Golden MD, , Taxonomy: [id number] on 09-13-2018 05:0 4:34 [facility] time. NOTE: Any pathology noted on this jerzy betic retinal evaluation should be confirmed by an appropriate ophthalmic examination. Performing Organization Address [facility] one Number KENNEDY * POCT GLUCOSE POC docked device (07/26/2018 5:04 PM CDT) Glucose POC 154 (H) 74 - 106 mg/dL [facility] Specimen Blood Performing Organization Address [facility] one Number [facility] [place] [address] [phone] [facility] [address] [place] [address] after 07/03/2018 Insurance Type Payer Benefit Subscriber ID Effective Phone Address Plan / Dates Group [facility] xxxxxxx 2019- [address] [employer]ILY 2020 [id number] [employer]ING [place], [place] [address] [facility] PLAN FINANCIAL xxxxxxx 2019- [phone] [id number] [place] [address] [facility] PLAN FINANCIAL xxxxxxxx 2019- [phone] [id number] [place] [address]
--- OUTSIDE RECORDS SUMMARY | 2019-07-05 08:56 | XMS REPORT ---
Author Author [facility] t Organization [facility] Address [address] [place] [address] Phone Unavailable Care Team Providers Care Manager Acquisition Name Role Phone Leeann PEREZ, P Trung PCP Reina BECKWITH Attphys Unavailable Leeann PEREZ, Carina Nihita Attphys Dominga Monaco NP Attphys Payers Payer Name Policy Type Policy Number Effective Date Expiration Date S saqib [place] [employer] [employer] [id number], [place] [address] xxxxxxx 2019 00:00:00 2020 23:59:59 H [facility] PLANFINANCIAL ASSISTANCE PROGRAMxxx [phone] [place] [address] xxxxxxx 2019 00:00:00 03-12 23:59:59 [facility] Problems Condition Name Condition Details Condition Category Status Onset Date Resolution Date Last Treatment Date Treating Clinician Comments Source Essential hypertension Essential hypertension Disease Active 2017-11-10 00:00:00 [facility] Allergies, Adverse Reactions, Alerts Allergy Name Allergy Type Status Severity Reaction(s) Onset Date Inacti ve Date Treating Clinician Comments Source No Known Allergies DA Active U 2019-04-11 00:00:00 [facility] No Known Allergies DA Active U 2019-03-01 00:00:00 [facility] No Known Allergies DA Active U 2016-03-13 00:00:00 [facility] Social History Social Habit Start Date Stop Date Quantity Comments Source Sex Assigned At [facility] Exposure to SARS-CoV-2 (event) Not sure [facility] Alcohol intake 2018-07-26 00:00:00 2018-07-26 00:00:00 [facility] History SDOH Food Worry 2017-11-10 00:00:00 2017-11-10 00:00:00 1 [facility] SDOH Food Scarcity 2017-11-10 00:00:00 2017-11-10 00:00:00 1 [facility] Alcohol Comment 2017-11-10 00:00:00 2017-11-10 00:00:00 vodka [facility] Smoking Status Start Date Stop Date Source Current every day smoker 2018-07-26 00:00:00 [facility] Medications Ordered Medication Name Filled Medication Name Start Date Stop Da te Current Medication? Ordering Clinician Indication Dosage Frequency Signature (SIG) Comments Components Source atorvastatin (LIPITOR) 20 mg tablet 2018-09-13 00:00:0 0 2019-06-14 00:00:00 No Hyperlipidemia, unspecified hyperlipidemia type 20mg Take 1 tablet by mouth at bedtime nightly. [facility] fenofibrate nanocrystallized (TRICOR) 145 mg tablet 2018-09-13 00:00:00 2019-06-14 00:00:00 No Hypertriglyceridemia 145mg QD Take 1 tablet by mouth daily. [facility] lisinopril (PRINIVIL) 5 mg tablet 2018-09-13 00:00:00 2019 00:00:00 No Essential hypertension 5mg QD Take 1 tablet by mouth park giang [facility] metFORMIN (GLUCOPHAGE) 500 mg tablet 2018-09-13 00:00: 00 2019-06-14 00:00:00 No Type 2 diabetes mellitus wit hout complication, with long-term current use of insulin 500mg Take 1 tablet by vandana th 2 times daily (with meals) For diabetes. [facility] ibuprofen (MOTRIN) 400 mg tablet 2018-09-13 00:00:00 2019-05 00:00:00 No Elbow pain, chronic, left 400mg Take 1 tablet by mouth every 12 hours as needed for Pain (take with food). [facility] tropicamide (MYDRIACYL) 0.5 % ophthalmic solution 2018-09-13 00:00:00 2018-09-13 23:59:00 No Type 2 diabetes ana itus without complication, with long-term current use of insulin 1[drp] Instill 1 Drop in each eye once as needed for up to 1 dose (for poor retina scan image). [facility] metFORMIN (GLUCOPHAGE) 500 mg tablet 2018-09-13 00:00: 00 2018-09-13 00:00:00 No Type 2 diabetes mellitus wit hout complication, with long-term current use of insulin 500mg Take 1 tablet by vandana th 2 times daily (with meals) For diabetes. [facility] atorvastatin (LIPITOR) 20 mg tablet 2018-09-13 00:00:0 0 2018-09-13 00:00:00 No Hyperlipidemia, unspecified hyperlipidemia type 20mg Take 1 tablet by mouth at bedtime nightly. [facility] lisinopril (PRINIVIL) 5 mg tablet 2018-09-13 00:00:00 2018 00:00:00 No Essential hypertension 5mg QD Take 1 tablet by mouth park y. [facility] fenofibrate nanocrystallized (TRICOR) 145 mg tablet 2018-09-13 00:00:00 2018-09-13 00:00:00 No Hypertriglyceridemia 145mg QD Take 1 tablet by mouth daily. [facility] ibuprofen (MOTRIN) 800 mg tablet 2018-07-26 00:00:00 2018-08 00:00:00 No Lateral epicondylitis of left elbow 800mg Take 1 tablet by mouth every 8 hours as needed for Pain. [facility] metFORMIN (GLUCOPHAGE) 500 mg tablet 2017-12-19 00:00: 00 2018-09-13 00:00:00 No Type 2 diabetes mellitus wit hout complication, with long-term current use of insulin 500mg Take 1 tablet by vandana th 2 times daily (with meals) For diabetes. [facility] atorvastatin (LIPITOR) 20 mg tablet 2017-12-19 00:00:0 0 2018-09-13 00:00:00 No Hyperlipidemia, unspecified hyperlipidemia type 20mg Take 1 tablet by mouth at bedtime nightly. [facility] lancets 28 gauge 2017-11-10 00:00:00 Yes Type 2 diabetes mellitus without complication, with long-term current use of insulin 100{each} Use 2 times daily as needed [facility] blood glucose (PRECISION XTRA TEST STRIPS) test strips 2017-11-10 00:00:00 Yes Type 2 diabetes mellitus wit hout complication, with long-term current use of insulin 1{each} Q.5D Check blood glucose 2 times daily [facility] lisinopril (PRINIVIL) 5 mg tablet 2017-11-10 00:00:00 2018 00:00:00 No Essential hypertension 5mg QD Take 1 tablet by mouth park giang [facility] INSULIN SYRINGE 0.5mL 30GX5/16" (MONOJEC T ULTRACOMFORT INSULIN SYR 0.5ML 30GX5/16") syringe-needle 2017-11-10 00:00:00 2018-09-13 00:00:00 No Type 2 diabetes mellitus without complication, with long-term current use of insulin Use to inject medication 5 times daily. Use a new syringe each t marshal. [facility] blood glucose meter 2017-09-23 00:00:00 Yes Newly diagnosed diabetes Use as directed.. [facility] Immunizations Ordered Immunization Name Filled Immunization Name Date Status Comments Source Influenza, Vaccine<FLUCELVAX>(Multi-Dose) 2017-12-19 00:00 :00 Completed [facility] Tdap (Tetanus Toxoid, Reduced Diphtheria Toxoid And Acellular Pertussis, Absorbed) 2017-11-10 00:00:00 Completed [facility] ealt PPV 23 (Pneumococcal Polysaccharide 23 Valent) 2017-10 00:00:00 Completed [facility] Vital Signs Vital Name Observation Time Observation Value Comments Source Heart rate 2018-09-13 11:36:00 98 /min manual radial pulse [facility] Systolic blood pressure 2018-09-13 10:44:00 130 mm[Hg] [facility] Diastolic blood pressure 2018-09-13 10:44:00 85 mm[Hg] [facility] Body temperature 2018-09-13 10:44:00 36.94 Lizette Rehana is [facility] Respiratory rate 2018-09-13 10:44:00 18 /min Rehana is [facility] Body height 2018-09-13 10:44:00 162.6 cm [facility] Body weight 2018-09-13 10:44:00 109.68 kg [facility] BMI 2018-09-13 10:44:00 41.50 kg/m2 [facility] Oxygen saturation in Arterial blood by Pulse oximetry 07-26 15:25:00 100 /min [facility] Procedures Procedure Date / Time Performed Performing Clinician Sourc e XRAY ELBOW 3 VIEWS MIN 2018-09-13 17:55:46 Trung Bradshaw [facility] LIPID PROFILE 2018-09-13 16:59:00 [facility] 2018-09-13 16:59:00 [facility] COMPREHENSIVE METABOLIC PANEL 2018-09-13 16:59:00 Trung Bradshaw [facility] OPHTHALMOLOGY RETINAL SCAN 2018-09-13 16:54:[address] [facility] GLUCOSE POC 2018-07-26 22:04:00 [facility] Plan of Care Planned Activity Planned Date Details Comments Source [facility] Scheduled Test 2019-11-15 00:00:00 IMM Influenza Seas onal Nov to April (>/= 19 yrs) [code = IMM Influenza Seasonal Nov to April (>/= 19 yrs)] [facility] Scheduled Test 2019-09-14 00:00:00 DM HGBA1C (Yearly) [code = DM HGBA1C (Yearly)] [facility] Scheduled Test 2019-09-14 00:00:00 DM Retinal Exam (Y early) [code = DM Retinal Exam (Yearly)] [facility] Scheduled Test 2018-12-19 00:00:00 DM Foot Exam (Year ly) [code = DM Foot Exam (Yearly)] [facility] Scheduled Test 2018-11-10 00:00:00 DM Microalbumin Ur ine Scrn (Yearly) [code = DM Microalbumin Urine Scrn (Yearly)] [facility] alth Encounters Start Date/Time End Date/Time Encounter Type Admission Type Att[facility] Care Department Encounter ID Source 2019-02-17 04:44:00 2019-02-17 00:16:00 Inpatient [id number] 2018-11-13 00:00:00 2018-11-13 00:00:00 Outpatient [facility] [id number] [facility] 2018-09-13 12:52:54 2018-09-13 12:52:54 Outpatient [facility] [id number] [facility] 2018-09-13 11:59:42 2018-09-13 11:59:42 Outpatient [facility] [id number] [facility] 2018-09-13 11:50:56 2018-09-13 11:50:56 Outpatient [facility] [id number] [facility] 2018-09-13 10:43:26 2018-09-13 10:43:26 Outpatient [facility] [id number] [facility] 2018-09-13 00:00:00 2018-09-13 00:00:00 Outpatient [facility] [id number] [facility] 2018-07-26 15:23:18 2018-07-26 15:23:18 Outpatient [facility] [id number] [facility] 2018-02-21 00:00:00 2018-02-21 00:00:00 Outpatient [facility] [id number] [facility] 2018-02-09 08:43:51 2018-02-09 08:43:51 Outpatient [facility] [id number] [facility] 2018-01-16 00:00:00 2018-01-16 00:00:00 Outpatient [facility] [id number] [facility] 2017-12-28 00:00:00 2017-12-28 00:00:00 Outpatient [facility] [id number] [facility] 2017-12-19 15:16:04 2017-12-19 15:16:04 Outpatient [facility] [id number] [facility] 2017-12-13 00:00:00 2017-12-13 00:00:00 Outpatient [facility] [id number] [facility] 2017-12-13 00:00:00 2017-12-13 00:00:00 Outpatient [facility] [id number] [facility] 2017-12-13 00:00:00 2017-12-13 00:00:00 Outpatient [facility] [id number] [facility] 2017-11-21 00:00:00 2017-11-21 00:00:00 Outpatient [facility] [id number] [facility] 2017-11-21 00:00:00 2017-11-21 00:00:00 Outpatient [facility] [id number] [facility] 2017-11-10 15:37:03 2017-11-10 15:37:03 Outpatient [facility] [id number] [facility] 2017-11-10 15:32:56 2017-11-10 15:32:56 Outpatient [facility] [id number] [facility] 2017-11-10 13:32:59 2017-11-10 13:32:59 Outpatient [facility] [id number] [facility] 2017-09-23 14:38:25 2017-09-23 14:38:25 Outpatient [facility] [id number] [facility] Results Test Description Test Time Test Comments Results Result Comments Source CT ABDOMEN/PELVIS W 2019-07-04 14:50:00 [place] [address] Patient Name: DEANDRE PHILIP MR #: [id number] : 1985 Age/Sex: 34/M Req #: [id number] Adm Physician: Ordered by: AV BECKWITH MD Report #: [id number] Location: ER Room/Bed: Procedure: [id number] CT/CT ABDOMEN/PELVIS W Exam Date: 07/04/19 Exam Time: 1250 REPORT STATUS: Signed CT of the abdomen and pelvis. Comparison: None Clinical History: Abdominal pain Technique: Helical CT scan of the abdomen and pelvis was performed. Intravenous contrast administration was utilized. Oral contrast administration was not utilized. Coronal and sagittal reconstructions were generated from the raw data. Multiple images were submitted for interpretation. This exam was performed according to our departmental dose-optimization program which includes automated exposure control, adjustment of the mA and/or kV according to patient size Discussion: Inferior chest: Unremarkable. Liver: Diffuse fatty infiltration Spleen: Unremarkable Pancreas: Acute pancreatitis most marked in the region of the pancreatic head neck and proximal body with extension of infiltration and inflammation into the peripancreatic regions and the small bowel mesentery. No definite necrosis. No definite air to suggest abscess formation. No pseudocysts. Biliary tree and gallbladder: Post cholecystectomy. Otherwise unremarkable. Adrenal glands: Unremarkable Kidneys and ureters: Small cortical renal cysts to small to characterize. Otherwise unremarkable Vasculature: Unremarkable Lymph nodes: Unremarkable Bowel: Unremarkable Pelvis: Urinary bladder is unremarkable. Prostate unremarkable. Seminal vesicles unremarkable. Pelvic wall unremarkable. Peritoneum: No ascites Perineal compartments: unremarkable. Fluid: As above Bones: Minimal degenerative changes Body wall: Unremarkable Impression: Findings of acute pancreatitis as described above. Signed by: Travis Smith MD on 07/04/2019 2:53 PM Dictated By: TRAVIS SMITH MD 52 Transcribed By: BHAKTI on 07/04/191452 COPY TO: AV BECKWITH MD CHEST SINGLE (PORTABLE) 2019-07-04 13:06:00 [place] [address] Patient Name: DEANDRE PHILIP MR #: [id number] : 1985 Age/Sex: 34/M Req #: [id number] Adm Physician: Ordered by: AV BECKWITH MD Report #: [id number] Location: ER Room/Bed: Procedure: [id number] DX/CHEST SINGLE (PORTABLE) Exam Date: 07/04/19 Exam Time: 1240 REPORT STATUS: Signed X-ray chest AP portable Comparison: None History: Epigastric pain Findings: Apical lordotic view with slight rotation. Central airways, cardiomediastinal silhouettes, diaphragms or lung garcia, pleural spaces, visualized skeletal structures and upper abdomen unremarkable for significant malady. Impression: No acute abnormality on this exam. Signed by: Travis Smith MD on 07/04/2019 1:06 PM Dictated By: TRAVIS SMITH MD 05 Transcribed By: BHAKTI on 07/04/191305 COPY TO: AV BECKWITH MD GLUBED 2019-06-15 12:00:00 Test Item GLUBED (test code = GLUBED) 223 mg/dL 74-106 H [facility] [id number] 06:14:00* Test Item Value Reference Range Interpretation Comments GLUBED (test code = GLUBED) 125 mg/dL 74-106 H Performed by certified hoop rolls operator at [facility] CBC W/AUTO [id number] 02:52:00* Test Item Value Reference Range Interpretation Comments WHITE BLOOD CELL (test code = WBC) 5.9 K/mm3 4.5-12.5 N RED BLOOD CELL (test code = RBC) 4.68 mill/mm3 4.0-5.8 N HEMOGLOBIN (test code = HGB) 13.7 gram/dL 13.0-17.5 N HEMATOCRIT (test code = HCT) 41.8 % 42.0-52.0 L MEAN CELL VOLUME (test code = MCV) 89.3 fL 80-98 N MEAN CELL HGB (test code = MCH) 29.3 picogram 27.0-33.0 N MEAN CELL HGB CONCETRATION (test code = MCHC) 32.8 gram/dL 33.0-36. 0 L RED CELL DISTRIBUTION WIDTH (test code = RDW) 13.5 % 11.6-16. 2 N RED CELL DISTRIBUTION WIDTH SD (test code = RDW-SD) 43.9 fL 37 .0-51.0 N PLATELET COUNT (test code = PLT) 203 K/mm3 150-450 N MEAN PLATELET VOLUME (test code = MPV) 10.1 fL 6.7-11.0 N NEUTROPHIL % (test code = NT%) 56.5 % 39.0-69.0 N IMMATURE GRANULOCYTE % (test code = IG%) 0.7 % 0.0-5.0 N LYMPHOCYTE % (test code = LY%) 22.2 % 25.0-55.0 L MONOCYTE % (test code = MO%) 8.6 % 0.0-10.0 N EOSINOPHIL % (test code = EO%) 11.3 % 0.0-5.0 H BASOPHIL % (test code = BA%) 0.7 % 0.0-1.0 N NUCLEATED RBC % (test code = NRBC%) 0.0 % 0-0 N NEUTROPHIL # (test code = NT#) 3.36 K/mm3 1.8-7.7 N IMMATURE GRANULOCYTE # (test code = IG#) 0.04 x10 3/uL 0-0.03 H LYMPHOCYTE # (test code = LY#) 1.32 K/mm3 1.0-5.0 N MONOCYTE # (test code = MO#) 0.51 K/mm3 0-0.8 N EOSINOPHIL # (test code = EO#) 0.67 K/mm3 0.0-0.5 H BASOPHIL # (test code = BA#) 0.04 K/mm3 0.0-0.2 N NUCLEATED RBC # (test code = NRBC#) 0.00 K/mm3 0.0-0.1 N MANUAL DIFF REQUIRED (test code = MDIFF) NO COMPREHENSIVE METABOLIC [id number] 02:25:00* Test Item Value Reference Range Interpretation Comments SODIUM (test code = NA) 141 mmol/L 136-145 N POTASSIUM (test code = K) 3.7 mmol/L 3.5-5.1 N CHLORIDE (test code = CL) 106.0 mmol/L 98-107 N CARBON DIOXIDE (test code = CO2) 27.0 mmol/L 21-32 N ANION GAP (test code = GAP) 11.7 10-20 N GLUCOSE (test code = GLU) 147 mg/dL 74-106 H BLOOD UREA NITROGEN (test code = BUN) 6 mg/dL 7-18 L GLOMERULAR FILTRATION RATE (test code = GFR) > 60 mL/min >=60 Estimated GFR by using Modified MDRD formula.Chronic kidney disease is defined as either kidney damageor GFR <60 mL/min/1.73 m2 for >3 months. CREATININE (test code = CREAT) 0.50 mg/dL 0.7-1.3 L BUN/CREATININE RATIO (test code = BUN/CREA) 12.0 10-20 N TOTAL PROTEIN (test code = PROT) 6.8 gram/dL 6.4-8.2 N ALBUMIN (test code = ALB) 3.1 g/dL 3.4-5.0 L GLOBULIN (test code = GLOB) 3.7 gram/dL 2.7-4.2 N ALBUMIN/GLOBULIN RATIO (test code = A/G) 0.8 0.75-1.50 N CALCIUM (test code = CA) 8.9 mg/dL 8.5-10.1 N BILIRUBIN TOTAL (test code = BILT) 0.50 mg/dL 0.0-1.0 N SGOT/AST (test code = AST) 40 IUnit/L 15-37 H SGPT/ALT (test code = ALT) 57 IUnit/L 12-78 N ALKALINE PHOSPHATASE TOTAL (test code = ALKP) 84 IUnit/L 45-117 N Note change in reference range due to change in reagent. [id number] 02:25:00* Test Item Value Reference Range Interpretation Comments LIPASE (test code = LIP) 546 U/L 73.0-393.0 H [id number] 02:25:00* Test Item Value Reference Range Interpretation Comments MAGNESIUM (test code = MAG) 2.0 mg/dL 1.8-2.4 N [id number] 00:08:00* Test Item Value Reference Range Interpretation Comments GLUBED (test code = GLUBED) 159 mg/dL 74-106 H Performed by certified hoop rolls operator at [facility] [id number] 17:53:00* Test Item Value Reference Range Interpretation Comments GLUBED (test code = GLUBED) 139 mg/dL 74-106 H Performed by certified hoop rolls operator at [facility] [id number] 11:57:00* Test Item Value Reference Range Interpretation Comments GLUBED (test code = GLUBED) 160 mg/dL 74-106 H Performed by certified hoop rolls operator [facility] ACUTE HEPATITIS [id number] 08:09:00* Test Item Value Reference Range Interpretation Comments AB HEPATITIS A IGM (test code = HAVMAB) Negative Negative AG HEPAT B SURF (test code = HBSAG) Negative Negative HEPATITIS B CORE ANTIBODY,IGM (test code = HBCMAB) Negative Neg ative AB HEPATITIS C (test code = HCVAB) <0.1 0.0-0.9 INFCE Result Units: s/co ratio Negative: < 0.8 Indeterminate: 0.8 - 0.9 Positive: > 0.9 The CDC recommends that a positive HCV antibody result be followed up with a HCV Nucleic Acid Amplification test ([id number]).Performed At: [facility] [address] [id number] Jadon Carvalho MD Ph:[phone] [id number] 08:07:00* Test Item Value Reference Range Interpretation Comments GLUBED (test code = GLUBED) 166 mg/dL 74-106 H Performed by certified hoop rolls operator [facility] [id number] 05:39:00* Test Item Value Reference Range Interpretation Comments GLUBED (test code = GLUBED) 152 mg/dL 74-106 H Performed by certified hoop rolls operator [facility] COMPREHENSIVE METABOLIC [id number] 03:05:00* Test Item Value Reference Range Interpretation Comments SODIUM (test code = NA) 139 mmol/L 136-145 N POTASSIUM (test code = K) 3.5 mmol/L 3.5-5.1 N CHLORIDE (test code = CL) 105.0 mmol/L 98-107 N CARBON DIOXIDE (test code = CO2) 24.0 mmol/L 21-32 N ANION GAP (test code = GAP) 13.5 10-20 N GLUCOSE (test code = GLU) 187 mg/dL 74-106 H BLOOD UREA NITROGEN (test code = BUN) 10 mg/dL 7-18 N GLOMERULAR FILTRATION RATE (test code = GFR) > 60 mL/min >=60 Estimated GFR by using Modified MDRD formula.Chronic kidney disease is defined as either kidney damageor GFR <60 mL/min/1.73 m2 for >3 months. CREATININE (test code = CREAT) 0.50 mg/dL 0.7-1.3 L BUN/CREATININE RATIO (test code = BUN/CREA) 20.0 10-20 N TOTAL PROTEIN (test code = PROT) 7.0 gram/dL 6.4-8.2 N ALBUMIN (test code = ALB) 3.2 g/dL 3.4-5.0 L GLOBULIN (test code = GLOB) 3.8 gram/dL 2.7-4.2 N ALBUMIN/GLOBULIN RATIO (test code = A/G) 0.8 0.75-1.50 N CALCIUM (test code = CA) 8.9 mg/dL 8.5-10.1 N BILIRUBIN TOTAL (test code = BILT) 0.60 mg/dL 0.0-1.0 N SGOT/AST (test code = AST) 28 IUnit/L 15-37 N SGPT/ALT (test code = ALT) 52 IUnit/L 12-78 N ALKALINE PHOSPHATASE TOTAL (test code = ALKP) 81 IUnit/L 45-117 N Note change in reference range due to change in reagent. [id number] 03:05:00* Test Item Value Reference Range Interpretation Comments LIPASE (test code = LIP) 1815 U/L 73.0-393.0 H [id number] 03:05:00* Test Item Value Reference Range Interpretation Comments MAGNESIUM (test code = MAG) 1.9 mg/dL 1.8-2.4 N CBC W/AUTO [id number] 02:42:00* Test Item Value Reference Range Interpretation Comments WHITE BLOOD CELL (test code = WBC) 6.9 K/mm3 4.5-12.5 N RED BLOOD CELL (test code = RBC) 4.84 mill/mm3 4.0-5.8 N HEMOGLOBIN (test code = HGB) 13.8 gram/dL 13.0-17.5 N HEMATOCRIT (test code = HCT) 41.7 % 42.0-52.0 L MEAN CELL VOLUME (test code = MCV) 86.2 fL 80-98 N MEAN CELL HGB (test code = MCH) 28.5 picogram 27.0-33.0 N MEAN CELL HGB CONCETRATION (test code = MCHC) 33.1 gram/dL 33.0-36. 0 N RED CELL DISTRIBUTION WIDTH (test code = RDW) 13.6 % 11.6-16. 2 N RED CELL DISTRIBUTION WIDTH SD (test code = RDW-SD) 42.4 fL 37 .0-51.0 N PLATELET COUNT (test code = PLT) 194 K/mm3 150-450 N MEAN PLATELET VOLUME (test code = MPV) 10.1 fL 6.7-11.0 N NEUTROPHIL % (test code = NT%) 66.6 % 39.0-69.0 N IMMATURE GRANULOCYTE % (test code = IG%) 0.4 % 0.0-5.0 N LYMPHOCYTE % (test code = LY%) 16.2 % 25.0-55.0 L MONOCYTE % (test code = MO%) 8.1 % 0.0-10.0 N EOSINOPHIL % (test code = EO%) 8.1 % 0.0-5.0 H BASOPHIL % (test code = BA%) 0.6 % 0.0-1.0 N NUCLEATED RBC % (test code = NRBC%) 0.0 % 0-0 N NEUTROPHIL # (test code = NT#) 4.59 K/mm3 1.8-7.7 N IMMATURE GRANULOCYTE # (test code = IG#) 0.03 x10 3/uL 0-0.03 N LYMPHOCYTE # (test code = LY#) 1.12 K/mm3 1.0-5.0 N MONOCYTE # (test code = MO#) 0.56 K/mm3 0-0.8 N EOSINOPHIL # (test code = EO#) 0.56 K/mm3 0.0-0.5 H BASOPHIL # (test code = BA#) 0.04 K/mm3 0.0-0.2 N NUCLEATED RBC # (test code = NRBC#) 0.00 K/mm3 0.0-0.1 N MANUAL DIFF REQUIRED (test code = MDIFF) NO [id number] 00:19:00* Test Item Value Reference Range Interpretation Comments GLUBED (test code = GLUBED) 197 mg/dL 74-106 H [facility]formed [facility] certified hoop rolls [facility] [id number] 20:25:00* Test Item Value Reference Range Interpretation Comments GLUBED (test code = GLUBED) 214 mg/dL 74-106 H Performed by certified hoop rolls operator [facility] [id number] 18:18:00* Test Item Value Reference Range Interpretation Comments GLUBED (test code = GLUBED) 234 mg/dL 74-106 H Performed by certified hoop rolls operator at [facility] [id number] 12:02:00* Test Item Value Reference Range Interpretation Comments GLUBED (test code = GLUBED) 215 mg/dL 74-106 H Performed by certified hoop rolls operator at [facility] [id number] 08:01:00* Test Item Value Reference Range Interpretation Comments GLUBED (test code = GLUBED) 203 mg/dL 74-106 H Performed by certified hoop rolls operator at [facility] COMPREHENSIVE METABOLIC [id number] 07:38:00* Test Item Value Reference Range Interpretation Comments SODIUM (test code = NA) 137 mmol/L 136-145 RESU LT VERIFIED BY REPEAT ANALYSIS POTASSIUM (test code = K) 3.9 mmol/L 3.5-5.1 N CHLORIDE (test code = CL) 102.0 mmol/L 98-107 N CARBON DIOXIDE (test code = CO2) 25.0 mmol/L 21-32 N ANION GAP (test code = GAP) 13.9 10-20 N GLUCOSE (test code = GLU) 219 mg/dL 74-106 H BLOOD UREA NITROGEN (test code = BUN) 10 mg/dL 7-18 N GLOMERULAR FILTRATION RATE (test code = GFR) > 60 mL/min >=60 Estimated GFR by using Modified MDRD formula.Chronic kidney disease is defined as either kidney damageor GFR <60 mL/min/1.73 m2 for >3 months. CREATININE (test code = CREAT) 0.60 mg/dL 0.7-1.3 L BUN/CREATININE RATIO (test code = BUN/CREA) 16.7 10-20 N TOTAL PROTEIN (test code = PROT) 7.0 gram/dL 6.4-8.2 N ALBUMIN (test code = ALB) 3.8 g/dL 3.4-5.0 N GLOBULIN (test code = GLOB) 3.2 gram/dL 2.7-4.2 N ALBUMIN/GLOBULIN RATIO (test code = A/G) 1.2 0.75-1.50 N CALCIUM (test code = CA) 8.9 mg/dL 8.5-10.1 N BILIRUBIN TOTAL (test code = BILT) 0.60 mg/dL 0.0-1.0 N SGOT/AST (test code = AST) 40 IUnit/L 15-37 H SGPT/ALT (test code = ALT) 71 IUnit/L 12-78 N ALKALINE PHOSPHATASE TOTAL (test code = ALKP) 93 IUnit/L 45-117 N Note change in reference range due to change in reagent. LIPID PROFILE (CORONARY RISK)2019-06-13 07:38:00* Test Item Value Reference Range Interpretation Comments TRIGLYCERIDES (test code = TRIG) 1622 mg/dL 20-150 H CHOLESTEROL (test code = CHOL) 261 mg/dL 0-200 H CHOLESTEROL/HDL RATIO (test code = CHOLHDL) 10.0 RATIO 0-4.9 H RISK ASSOCIATED WITH CHOL/HDL RATIOS: Risk Male Female1/2 AVERAGE 3.43 3.27AVERAGE 4.97 4.442X AVERAGE 9.55 7.053X AVERAGE 23.39 11.04 REFERENCE VALUE IS RELATED TO RISK LEVELS ASRECOMMENDED BY THE KEV[facility]. HEART, LUNG, AND BLOOD INST. HDL CHOLESTEROL (test code = HDL) 25 mg/dL 40-60 L LIPOPROTEIN LDL (test code = LDL) 82 mg/dL 100-129 L Reference Interval: mg/dL mmol/L Optimal <100 <2.6Near/above optimal 100-129 2.6- 3.3Borderline High 130-159 3.4-4.1High 160-189 4.1-4.9Very High >=190 >=4.9========= This LDL result is a direct measurement.========= [id number] 07:38:00* Test Item Value Reference Range Interpretation Comments LIPASE (test code = LIP) 41152 U/L 73.0-393.0 H THYROID STIMULATING [id number] 07:38:00* Test Item Value Reference Range Interpretation Comments THYROID STIMULATING HORMONE (test code = TSH) 2.460 uIU/mL 0.36-3.7 4 N TSH REFERENCE RANGES: EUTHYROID: 0.35 - 4.3 mIU/mL HYPO : > 5.5 mIU/mL HYPER : < 0.35 mIU/mL [id number] 07:17:00* Test Item Value Reference Range Interpretation Comments GLYCOSYLATED HEMOGLOBIN (HA1C) (test code = GLYHGB) 9.0 % HbA1 SUGGESTED DIAGNOSIS: HbA1C (%) Diabetic >6.4Prediabetes 5.7 - 6.4Normal <5.7 ESTIMATED AVERAGE GLUCOSE (test code = EAG) 212 MG/DL [id number] 07:17:00* Test Item Value Reference Range Interpretation Comments AMMONIA (test code = AMM) 66 umol/L 11-32 H CBC W/AUTO [id number] 07:06:00* Test Item Value Reference Range Interpretation Comments WHITE BLOOD CELL (test code = WBC) 9.2 K/mm3 4.5-12.5 N RED BLOOD CELL (test code = RBC) 5.11 mill/mm3 4.0-5.8 N HEMOGLOBIN (test code = HGB) 14.7 gram/dL 13.0-17.5 N HEMATOCRIT (test code = HCT) 44.1 % 42.0-52.0 N MEAN CELL VOLUME (test code = MCV) 86.3 fL 80-98 N MEAN CELL HGB (test code = MCH) 28.8 picogram 27.0-33.0 N MEAN CELL HGB CONCETRATION (test code = MCHC) 33.3 gram/dL 33.0-36. 0 N RED CELL DISTRIBUTION WIDTH (test code = RDW) 13.3 % 11.6-16. 2 N RED CELL DISTRIBUTION WIDTH SD (test code = RDW-SD) 41.4 fL 37 .0-51.0 N PLATELET COUNT (test code = PLT) 234 K/mm3 150-450 N MEAN PLATELET VOLUME (test code = MPV) 10.4 fL 6.7-11.0 N NEUTROPHIL % (test code = NT%) 75.5 % 39.0-69.0 H IMMATURE GRANULOCYTE % (test code = IG%) 0.5 % 0.0-5.0 N LYMPHOCYTE % (test code = LY%) 12.7 % 25.0-55.0 L MONOCYTE % (test code = MO%) 7.9 % 0.0-10.0 N EOSINOPHIL % (test code = EO%) 2.9 % 0.0-5.0 N BASOPHIL % (test code = BA%) 0.5 % 0.0-1.0 N NUCLEATED RBC % (test code = NRBC%) 0.0 % 0-0 N NEUTROPHIL # (test code = NT#) 6.93 K/mm3 1.8-7.7 N IMMATURE GRANULOCYTE # (test code = IG#) 0.05 x10 3/uL 0-0.03 H LYMPHOCYTE # (test code = LY#) 1.17 K/mm3 1.0-5.0 N MONOCYTE # (test code = MO#) 0.73 K/mm3 0-0.8 N EOSINOPHIL # (test code = EO#) 0.27 K/mm3 0.0-0.5 N BASOPHIL # (test code = BA#) 0.05 K/mm3 0.0-0.2 N NUCLEATED RBC # (test code = NRBC#) 0.00 K/mm3 0.0-0.1 N - US ABDOMEN [id number] 07:05:00 Name: DEANDRE PHILIP [facility] : 1985 Age/S: 34 / M [address] [facility] Unit #: [id number] Loc: [place] [address] Phys: Kasey Heller MD Acct: [id number] Dis Date: Status: ADM IN PHONE #: [phone] Exam Date: 06/12/2019 0013 FAX #: [phone] Reason: Elevated liapse ,ammonia EXAMS: CPT CODE: [id number] US ABDOMEN COMPLETE 89072 HISTORY: Elevated lipase and pneumonia. COMPARISON: CT abdomen and pelvis from previous day. Location: [facility]. The liver is diffusely hyperechogenic consistent with severe diffuse fibrofatty infiltration which limited evaluation for intrahepatic mass however no discrete lesions. The liver measured 21.6 cm in length. No intra or extrahepatic biliary ductal dilatation. CBD is normal at 2 mm. Main portal vein is patent. Hepatopedal flow with normal spectral waveform. Patient is post cholecystectomy. Kidneys are free from hydronephrosis and calyceal stones. Normal echogenicity and texture. Right kidney measured 12.9 cm in length. Left kidney measured 12 cm in length. Spleen is not enlarged at 13.1 cm in length. Visualized portions of the IVC, aorta and pancreas are normal however imaged incompletely. IMPRESSION: Fibrofatty infiltrated liver with hepatomegaly at 21.6 cm in length. Patient is post cholecystectomy. Unremarkable kidneys. Poorly visualized pancreas. Spleen is normal. at 0705 Reported and signed by: Ronni Velásquez M.D. CC: Kasey Heller MD Technologist: KENNEDI RUSH RDMS Trnscb Date/Time: 06/13/2019 (704) [email or web address] Orig Print D/T: S: 06/13/2019 (707) Probe: PAGE 1 Signed Report CBC W/AUTO [id number] 06:59:00* Test Item Value Reference Range Interpretation Comments WHITE BLOOD CELL (test code = WBC) K/mm3 4.5-12.5 RED BLOOD CELL (test code = RBC) mill/mm3 4.0-5.8 HEMOGLOBIN (test code = HGB) 14.7 gram/dL 13.0-17.5 N HEMATOCRIT (test code = HCT) 44.1 % 42.0-52.0 N MEAN CELL VOLUME (test code = MCV) fL 80-98 MEAN CELL HGB (test code = MCH) picogram 27.0-33.0 MEAN CELL HGB CONCETRATION (test code = MCHC) gram/dL 33.0-36. 0 RED CELL DISTRIBUTION WIDTH (test code = RDW) % 11.6-16. 2 RED CELL DISTRIBUTION WIDTH SD (test code = RDW-SD) fL 37 .0-51.0 PLATELET COUNT (test code = PLT) K/mm3 150-450 MEAN PLATELET VOLUME (test code = MPV) fL 6.7-11.0 NEUTROPHIL % (test code = NT%) % 39.0-69.0 IMMATURE GRANULOCYTE % (test code = IG%) % 0.0-5.0 LYMPHOCYTE % (test code = LY%) % 25.0-55.0 MONOCYTE % (test code = MO%) % 0.0-10.0 EOSINOPHIL % (test code = EO%) % 0.0-5.0 BASOPHIL % (test code = BA%) % 0.0-1.0 NEUTROPHIL # (test code = NT#) K/mm3 1.8-7.7 LYMPHOCYTE # (test code = LY#) K/mm3 1.0-5.0 MONOCYTE # (test code = MO#) K/mm3 0-0.8 EOSINOPHIL # (test code = EO#) K/mm3 0.0-0.5 BASOPHIL # (test code = BA#) K/mm3 0.0-0.2 [id number] 05:00:00* Test Item Value Reference Range Interpretation Comments GLUBED (test code = GLUBED) 205 mg/dL 74-106 H Performed by certified hoop rolls operator at [facility] [id number] 00:54:00* Test Item Value Reference Range Interpretation Comments GLUBED (test code = GLUBED) 248 mg/dL 74-106 H Performed by certified hoop rolls operator at [facility] [id number] 00:54:00* Test Item Value Reference Range Interpretation Comments GLUBED (test code = GLUBED) 248 mg/dL 74-106 H Performed by certified hoop rolls operator at [facility] [id number] 20:59:00* Test Item Value Reference Range Interpretation Comments GLUBED (test code = GLUBED) 192 mg/dL 74-106 H Performed by certified hoop rolls operator at [facility] [id number] 17:39:00* Test Item Value Reference Range Interpretation Comments GLUBED (test code = GLUBED) 175 mg/dL 74-106 H Performed by certified hoop rolls operator at [facility] [id number] 15:21:00* Test Item Value Reference Range Interpretation Comments AMMONIA (test code = AMM) 120 umol/L 11-32 H [id number] 15:18:00* Test Item Value Reference Range Interpretation Comments PHOSPHORUS (test code = PHOS) 3.7 mg/dL 2.5-4.9 N [id number] 15:18:00* Test Item Value Reference Range Interpretation Comments MAGNESIUM (test code = MAG) 2.1 mg/dL 1.8-2.4 N FOLIC [id number] 15:18:00* Test Item Value Reference Range Interpretation Comments FOLIC ACID (test code = FOL) 19.6 ng/mL 3.10-17.50 H [id number] 14:56:00* Test Item Value Reference Range Interpretation Comments GLUBED (test code = GLUBED) 213 mg/dL 74-106 H Performed by certified hoop rolls operator at [facility] DRUGS OF ABUSE SCREEN [id number] 14:54:00* Test Item Value Reference Range Interpretation Comments UA PH DIPSTICK (test code = ZEUS) 5.5 5.0-8.0 URN COCAINE (test code = COCAURN) POSITIVE <300 ng/mL A This test provides only a preliminary test result. A morespecific alternate chemical method must be used in order toobtain a confirmed analytical result. Gas chromatography/mass spectrometry (GC/MS) is thepreferred confirmatory method. Other chemical confirmationmethods are available. Clinical consideration and professional judgment should be applied to any drug of abusetest result, particularly when preliminary positive resultsare used.Unconfirmed screening results must not be used fornon-medical purposes (e.g., employment testing, legaltesting). URN CANNABINOIDS (test code = CANNABURN) NEGATIVE <50 ng/mL URN AMPHETAMINE (test code = AMPHETURN) NEGATIVE <1000 ng/mL URN BARBITURATE (test code = BARBITURN) NEGATIVE <200 ng/mL URN BENZODIAZEPINE (test code = BENZOURN) NEGATIVE <200 ng/mL URN OPIATES (test code = OPIATURN) NEGATIVE <300 ng/mL URN PHENCYCLIDINE (PCP) (test code = PHENCURN) NEGATIVE <25 ng/ mL URN METHADONE (test code = METHAURN) NEGATIVE <300 ng/mL PROTHROMBIN [id number] 14:52:00* Test Item Value Reference Range Interpretation Comments PROTHROMBIN TIME PATIENT (test code = PTP) 11.2 seconds 9.0-14.0 N INTERNATIONAL NORMAL RATIO (test code = INR) 0.9 0.8-1.2 N The therapeutic range for oral anticoagulant therapy formost indications is an international normalized ratio (INR)of between 2.0 and 3.0. The recommended therapeutic INRrange for various clinical situations is listed below: Clinical Situation INR range Pulmonary e mbolism treatment (2.0-3.0)Venous thrombosis treatmentVenous thrombosis prophylaxis (high risk surgery)Prevention of systemic embolism from: Acute myocardial infarction Valvular heart disease Atrial fibrillation Mechanical prosthetic heart valves (2.5-3.5) IS PATIENT ON ANTICOAGULANTS? NTHROMBOPLASTIN TIME [id number] 14:52:00* Test Item Value Reference Range Interpretation Comments THROMBOPLASTIN TIME PARTIAL (test code = PTT) 34.7 seconds 23.0-37. 0 N IS PATIENT ON ANTICOAGULANTS? NDRUGS OF ABUSE SCREEN [id number] 14:40:00* Test Item Value Reference Range Interpretation Comments UA PH DIPSTICK (test code = ZEUS) 5.5 5.0-8.0 URN COCAINE (test code = COCAURN) <300 ng/mL URN CANNABINOIDS (test code = CANNABURN) <50 ng/mL URN AMPHETAMINE (test code = AMPHETURN) <1000 ng/mL URN BARBITURATE (test code = BARBITURN) <200 ng/mL URN BENZODIAZEPINE (test code = BENZOURN) <200 ng/mL URN OPIATES (test code = OPIATURN) <300 ng/mL URN PHENCYCLIDINE (PCP) (test code = PHENCURN) <25 ng/ mL URN METHADONE (test code = METHAURN) <300 ng/mL LACTIC DEHYDROGENASE(LDH)2019-06-12 14:17:00* Test Item Value Reference Range Interpretation Comments LACTIC DEHYDROGENASE(LDH) (test code = LDH) 168 IUnit/L 84-246 N ADD ON- CT ABD PELVIS [id number] 10:38:00 Name: DEANDRE PHILIP [facility] : 1985 Age/S: 34 / M [address] [facility] Unit #: [id number] Loc: [place] [address] Phys: Papa Roberts MD Acct: [id number] Dis Date: Status: REG ER PHONE #: [phone] Exam Date: 06/12/2019 0941 FAX #: [phone] Reason: RUQ abdominal pain EXAMS: CPT CODE: [id number] CT ABD PELVIS W/CONT 88251 REASON FOR EXAM: RUQ abdominal pain EXAM ORDER DATE: 06/12/2019 8:32 AM Ordering M.D.: Papa Roberts MD PROCEDURE: - CT ABD PELVIS W/CONT contrast-enhanced axial CT images were acquired through the abdomen/pelvis at 5 mm intervals. Sagittal and coronal reformatted images were generated. Automated exposure control was utilized for this reduction. Phases of contrast: venous and delayed COMPARISON: Abdominal ul trasound March 07, [address] of the abdomen and pelvis October 17 FINDINGS: Visualized thorax: Normal Hepatobiliary system: Hepatomegaly with hepatic steatosis. Cholecystecto my Pancreas: There is very mild stranding of the fat adjacent to t he pancreatic head as well as the third and fourth portions of the d uodenum. No areas of devascularization are seen within the pancreatic pare nchyma Spleen: Normal Adrenal glands: Normal Genitourinary system: Normal Gastrointestinal tract and luiz endix: There is mild stranding of the fat adjacent to the third and fourth portions of the duodenum. Otherwise normal Abdominal vascul ar structures: Normal Peritoneum and retroperitoneum: Mild fat str anding adjacent to the third and fourth portions of the duodenum and also the pancreatic head. No organized fluid collection is seen Musculoskeletal structures and abdominal wall: Degenerative changes are present in the sp ine PAGE 1 Signed Report ( CONTINUED) Name: DEANDRE PHILIP [facility] : 1985 Age/S: 34 / M [address] U nit #: [id number] Loc: [place] [address] Phys: Papa Roberts MD Acct: [id number] Dis Date: Status: REG ER PHONE #: [phone] Exam Date: 06/12/2019 09 FAX #: [phone] Reason: RUQ abdominal pain EXAMS: CPT CODE: [id number] CT ABD PELVIS W/CONT 29511 <Continued> IMPRESSION: Findings suggest mild pancreatitis involving the head versus duodenitis involving the third and fourth segments of the duodenum. However no duodenal mass is seen and there is no evidence of pancreatic necrosis or fluid collection. Hepatomegaly with hepatic s teatosis. Location: [facility] at 1038 Reported and signed by: Jonathan Chandra MD CC: Papa Roberts MD Technologist:Kat Greene,RT(R),CT CTDI: DLP: Trnscb Date/Time: 06/12/2019 (1038) [email or web address] Orig Print D/T: S: 06/12/2019 (9969) PAGE 2 S igned Report BASIC METABOLIC [id number] 09:36:00* Test Item Value Reference Range Interpretation Comments SODIUM (test code = NA) 128 mmol/L 136-145 L POTASSIUM (test code = K) 3.8 mmol/L 3.5-5.1 N CHLORIDE (test code = CL) 90.0 mmol/L 98-107 L CARBON DIOXIDE (test code = CO2) 26.0 mmol/L 21-32 N ANION GAP (test code = GAP) 15.8 10-20 N GLUCOSE (test code = GLU) 451 mg/dL 74-106 H BLOOD UREA NITROGEN (test code = BUN) 12 mg/dL 7-18 N GLOMERULAR FILTRATION RATE (test code = GFR) > 60 mL/min >=60 Estimated GFR by using Modified MDRD formula.Chronic kidney disease is defined as either kidney damageor GFR <60 mL/min/1.73 m2 for >3 months. CREATININE (test code = CREAT) 0.90 mg/dL 0.7-1.3 N BUN/CREATININE RATIO (test code = BUN/CREA) 13.3 10-20 N CALCIUM (test code = CA) 9.0 mg/dL 8.5-10.1 N HEPATIC FUNCTION [id number] 09:36:00* Test Item Value Reference Range Interpretation Comments TOTAL PROTEIN (test code = PROT) 7.9 gram/dL 6.4-8.2 N ALBUMIN (test code = ALB) 4.0 g/dL 3.4-5.0 N GLOBULIN (test code = GLOB) 3.9 gram/dL 2.7-4.2 N ALBUMIN/GLOBULIN RATIO (test code = A/G) 1.0 0.75-1.50 N BILIRUBIN TOTAL (test code = BILT) 0.60 mg/dL 0.0-1.0 N BILIRUBIN DIRECT (test code = BILD) 0.09 mg/dL 0.0-0.20 N SGOT/AST (test code = AST) 35 IUnit/L 15-37 N SGPT/ALT (test code = ALT) 77 IUnit/L 12-78 N ALKALINE PHOSPHATASE TOTAL (test code = ALKP) 95 IUnit/L 45-117 N Note change in reference range due to change in reagent. [id number] 09:36:00* Test Item Value Reference Range Interpretation Comments LIPASE (test code = LIP) 4321 U/L 73.0-393.0 H [id number] 09:36:00* Test Item Value Reference Range Interpretation Comments TROPONIN-I (test code = TROPI) <0.015 ng/mL 0-0.045 N URINALYSIS [id number] 09:13:00* Test Item Value Reference Range Interpretation Comments UA COLOR (test code = COLU) Light-Yellow YELLOW UA APPEARANCE (test code = APPU) CLEAR CLEAR UA GLUCOSE DIPSTICK (test code = DGLUU) >1000 (4+) mg/dL NEGATIVE UA BILIRUBIN DIPSTICK (test code = BILU) NEGATIVE mg/dL NEGATIVE UA KETONE DIPSTICK (test code = KETU) 20 (1+) mg/dL NEGATIVE A UA SPECIFIC GRAVITY (test code = SGU) 1.041 1.001-1.035 UA BLOOD DIPSTICK (test code = ANNE MARIE) Negative mg/dL NEGATIVE UA PH DIPSTICK (test code = ZEUS) 5.5 5.0-8.0 UA PROTEIN DIPSTICK (test code = PROU) 30 (1+) mg/dL NEGATIVE A UA UROBILINIOGEN DIPSTICK (test code = URO) Normal mg/dL NEGATIVE UA NITRITE DIPSTICK (test code = NISSA) NEGATIVE NEGATIVE UA LEUKOCYTE ESTERASE W REFLEX (test code = LEUUR) NEGATIVE Jann/uL NEGATIVE UA WBC (test code = WBCU) 0-5 per HPF 0-5 UA RBC (test code = RBCU) NONE SEEN #/HPF 0-5 UA EPITHELIAL CELLS (test code = EPIU) FEW per HPF FEW UA BACTERIA (test code = BACU) NONE SEEN #/HPF NONE UA MUCUS (test code = MUCU) FEW #/LPF FEW Urine Source? Clean CatchBASIC METABOLIC [id number] 09:07:00* Test Item Value Reference Range Interpretation Comments SODIUM (test code = NA) 128 mmol/L 136-145 L POTASSIUM (test code = K) 3.8 mmol/L 3.5-5.1 N CHLORIDE (test code = CL) 90.0 mmol/L 98-107 L CARBON DIOXIDE (test code = CO2) 26.0 mmol/L 21-32 N ANION GAP (test code = GAP) 15.8 10-20 N GLUCOSE (test code = GLU) 451 mg/dL 74-106 H BLOOD UREA NITROGEN (test code = BUN) 12 mg/dL 7-18 N GLOMERULAR FILTRATION RATE (test code = GFR) > 60 mL/min >=60 Estimated GFR by using Modified MDRD formula.Chronic kidney disease is defined as either kidney damageor GFR <60 mL/min/1.73 m2 for >3 months. CREATININE (test code = CREAT) 0.90 mg/dL 0.7-1.3 N BUN/CREATININE RATIO (test code = BUN/CREA) 13.3 10-20 N CALCIUM (test code = CA) 9.0 mg/dL 8.5-10.1 N HEPATIC FUNCTION [id number] 09:07:00* Test Item Value Reference Range Interpretation Comments TOTAL PROTEIN (test code = PROT) 7.9 gram/dL 6.4-8.2 N ALBUMIN (test code = ALB) 4.0 g/dL 3.4-5.0 N GLOBULIN (test code = GLOB) 3.9 gram/dL 2.7-4.2 N ALBUMIN/GLOBULIN RATIO (test code = A/G) 1.0 0.75-1.50 N BILIRUBIN TOTAL (test code = BILT) 0.60 mg/dL 0.0-1.0 N BILIRUBIN DIRECT (test code = BILD) 0.09 mg/dL 0.0-0.20 N SGOT/AST (test code = AST) IUnit/L 15-37 SGPT/ALT (test code = ALT) IUnit/L 12-78 ALKALINE PHOSPHATASE TOTAL (test code = ALKP) 95 IUnit/L 45-117 N Note change in reference range due to change in reagent. [id number] 09:07:00* Test Item Value Reference Range Interpretation Comments LIPASE (test code = LIP) 4321 U/L 73.0-393.0 H [id number] 09:07:00* Test Item Value Reference Range Interpretation Comments TROPONIN-I (test code = TROPI) <0.015 ng/mL 0-0.045 N CBC W/O [id number] 08:50:00* Test Item Value Reference Range Interpretation Comments WHITE BLOOD CELL (test code = WBC) 9.0 K/mm3 4.5-12.5 N RED BLOOD CELL (test code = RBC) 5.31 mill/mm3 4.0-5.8 N HEMOGLOBIN (test code = HGB) 15.5 gram/dL 13.0-17.5 N HEMATOCRIT (test code = HCT) 44.0 % 42.0-52.0 N MEAN CELL VOLUME (test code = MCV) 82.9 fL 80-98 N MEAN CELL HGB (test code = MCH) 29.2 picogram 27.0-33.0 N MEAN CELL HGB CONCETRATION (test code = MCHC) 35.2 gram/dL 33.0-36. 0 N RED CELL DISTRIBUTION WIDTH (test code = RDW) 13.1 % 11.6-16. 2 N PLATELET COUNT (test code = PLT) 262 K/mm3 150-450 N MEAN PLATELET VOLUME (test code = MPV) 10.2 fL 6.7-11.0 N CBC W/O [id number] 08:48:00* Test Item Value Reference Range Interpretation Comments WHITE BLOOD CELL (test code = WBC) K/mm3 4.5-12.5 RED BLOOD CELL (test code = RBC) mill/mm3 4.0-5.8 HEMOGLOBIN (test code = HGB) 15.5 gram/dL 13.0-17.5 N HEMATOCRIT (test code = HCT) 44.0 % 42.0-52.0 N MEAN CELL VOLUME (test code = MCV) fL 80-98 MEAN CELL HGB (test code = MCH) picogram 27.0-33.0 MEAN CELL HGB CONCETRATION (test code = MCHC) gram/dL 33.0-36. 0 RED CELL DISTRIBUTION WIDTH (test code = RDW) % 11.6-16. 2 PLATELET COUNT (test code = PLT) K/mm3 150-450 MEAN PLATELET VOLUME (test code = MPV) fL 6.7-11.0 [id number] 11:23:00* Test Item Value Reference Range Interpretation Comments GLUBED (test code = GLUBED) 174 mg/dL 74-106 H Performed by certified hoop rolls operator at [facility] [id number] 08:05:00* Test Item Value Reference Range Interpretation Comments GLUBED (test code = GLUBED) 123 mg/dL 74-106 H Performed by certified hoop rolls operator at [facility] BASIC METABOLIC [id number] 07:19:00* Test Item Value Reference Range Interpretation Comments SODIUM (test code = NA) 136 mmol/L 136-145 N POTASSIUM (test code = K) 4.1 mmol/L 3.5-5.1 N CHLORIDE (test code = CL) 103.0 mmol/L 98-107 N CARBON DIOXIDE (test code = CO2) 27.0 mmol/L 21-32 N ANION GAP (test code = GAP) 10.1 10-20 N GLUCOSE (test code = GLU) 138 mg/dL 74-106 H BLOOD UREA NITROGEN (test code = BUN) 10 mg/dL 7-18 N GLOMERULAR FILTRATION RATE (test code = GFR) > 60 mL/min >=60 Estimated GFR by using Modified MDRD formula.Chronic kidney disease is defined as either kidney damageor GFR <60 mL/min/1.73 m2 for >3 months. CREATININE (test code = CREAT) 0.70 mg/dL 0.7-1.3 N BUN/CREATININE RATIO (test code = BUN/CREA) 14.3 10-20 N CALCIUM (test code = CA) 9.0 mg/dL 8.5-10.1 N [id number] 07:19:00* Test Item Value Reference Range Interpretation Comments LIPASE (test code = LIP) 174 U/L 73.0-393.0 N CBC W/AUTO [id number] 06:35:00* Test Item Value Reference Range Interpretation Comments WHITE BLOOD CELL (test code = WBC) 6.1 K/mm3 4.5-12.5 N RED BLOOD CELL (test code = RBC) 4.90 mill/mm3 4.0-5.8 N HEMOGLOBIN (test code = HGB) 14.2 gram/dL 13.0-17.5 HEMATOCRIT (test code = HCT) 41.1 % 42.0-52.0 L MEAN CELL VOLUME (test code = MCV) 83.9 fL 80-98 N MEAN CELL HGB (test code = MCH) 29.0 picogram 27.0-33.0 N MEAN CELL HGB CONCETRATION (test code = MCHC) 34.5 gram/dL 33.0-36. 0 N RED CELL DISTRIBUTION WIDTH (test code = RDW) 13.0 % 11.6-16. 2 N RED CELL DISTRIBUTION WIDTH SD (test code = RDW-SD) 39.8 fL 37 .0-51.0 N PLATELET COUNT (test code = PLT) 226 K/mm3 150-450 MEAN PLATELET VOLUME (test code = MPV) 10.2 fL 6.7-11.0 N NEUTROPHIL % (test code = NT%) 59.1 % 39.0-69.0 N IMMATURE GRANULOCYTE % (test code = IG%) 0.7 % 0.0-5.0 N LYMPHOCYTE % (test code = LY%) 28.2 % 25.0-55.0 N MONOCYTE % (test code = MO%) 8.5 % 0.0-10.0 N EOSINOPHIL % (test code = EO%) 2.8 % 0.0-5.0 N BASOPHIL % (test code = BA%) 0.7 % 0.0-1.0 N NUCLEATED RBC % (test code = NRBC%) 0.0 % 0-0 N NEUTROPHIL # (test code = NT#) 3.64 K/mm3 1.8-7.7 N IMMATURE GRANULOCYTE # (test code = IG#) 0.04 x10 3/uL 0-0.03 H LYMPHOCYTE # (test code = LY#) 1.73 K/mm3 1.0-5.0 N MONOCYTE # (test code = MO#) 0.52 K/mm3 0-0.8 N EOSINOPHIL # (test code = EO#) 0.17 K/mm3 0.0-0.5 N BASOPHIL # (test code = BA#) 0.04 K/mm3 0.0-0.2 N NUCLEATED RBC # (test code = NRBC#) 0.00 K/mm3 0.0-0.1 N MANUAL DIFF REQUIRED (test code = MDIFF) NO [id number] 20:15:00* Test Item Value Reference Range Interpretation Comments GLUBED (test code = GLUBED) 193 mg/dL 74-106 H Performed by certified hoop rolls operator at [facility] [id number] 16:09:00* Test Item Value Reference Range Interpretation Comments GLUBED (test code = GLUBED) 149 mg/dL 74-106 H Performed by certified hoop rolls operator at [facility] - US ABDOMEN [id number] 14:18:00 [facility] 1985 Age[facility]S: 34 / M [address] Unit #: [id number] Loc: DIGNA Isaacs [address] Phys: Nehemiah Alba NP Acct: [id number] Dis Date: Status: ADM IN PHONE #: [phone] Exam Date: 04/12/2019 1408 FAX #: [phone] Reason: ABDOMINAL PAIN EXAMS: CPT CODE: [id number] US ABDOMEN LTD 79036 REASON FOR EXAM: ABDOMINAL PAIN EXAM ORDER DATE: 04/12/2019 9:52 AM Attending Britany: Nehemiah Alba NP PROCEDURE: - US ABDOMEN LTD Comparison: CT of the abdomen and pelvis the previous night FINDINGS/ IMPRESSION: Visualized portion of the pancreas appears to be within normal limits. Hepatic parenchyma is hyperechoic which likely represents steatosis. Location: 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 Hepatic parenchyma is hyperechoic which likely represents steatosis. Location: [facility] Electro nically Signed by Jonathan Chandra MD on 04/12/2019 at 1418 R eported and signed by: Jonathan Chandra MD CC: Nehemiah Alba; Matt Alexandre MD Technologist: ZEN MIRANDA RT(R),RD MS Trnscb Date/Time: 04/12/2019 (1418) [email or web address] Orig Print D/T: S: 04/12/2019 (8761) Probe: PAGE 1 Signed Report [id number] 12:45:00* Test Item Value Reference Range Interpretation Comments LIPASE (test code = LIP) 352 U/L 73.0-393.0 N [id number] 11:36:00* Test Item Value Reference Range Interpretation Comments GLUBED (test code = GLUBED) 171 mg/dL 74-106 H Performed by certified hoop rolls operator at [facility] [id number] 10:38:00* Test Item Value Reference Range Interpretation Comments GLYCOSYLATED HEMOGLOBIN (HA1C) (test code = GLYHGB) 8.2 % HbA1 SUGGESTED DIAGNOSIS: HbA1C (%) Diabetic >6.4Prediabetes 5.7 - 6.4Normal <5.7 ESTIMATED AVERAGE GLUCOSE (test code = EAG) 189 MG/DL LIPID PROFILE (CORONARY RISK)2019-04-12 10:38:00* Test Item Value Reference Range Interpretation Comments TRIGLYCERIDES (test code = TRIG) 2316 mg/dL 20-150 H CHOLESTEROL (test code = CHOL) 230 mg/dL 0-200 H CHOLESTEROL/HDL RATIO (test code = CHOLHDL) 12.0 RATIO 0-4.9 H RISK ASSOCIATED WITH CHOL/HDL RATIOS: Risk Male Female1/2 AVERAGE 3.43 3.27AVERAGE 4.97 4.442X AVERAGE 9.55 7.053X AVERAGE 23.39 11.04 REFERENCE VALUE IS RELATED TO RISK LEVELS ASRECOMMENDED BY THE K[facility]. HEART, LUNG, AND BLOOD INST. HDL CHOLESTEROL (test code = HDL) 19 mg/dL 40-60 L LIPOPROTEIN LDL (test code = LDL) 61 mg/dL 100-129 L Reference Interval: mg/dL mmol/L Optimal <100 <2.6Near/above optimal 100-129 2.6- 3.3Borderline High 130-159 3.4-4.1High 160-189 4.1-4.9Very High >=190 >=4.9========= This LDL result is a direct measurement.========= [id number] 10:29:00* Test Item Value Reference Range Interpretation Comments ALCOHOL (test code = ALC) < 3 mg/dL 0.0-3.0 N -- INTERPRETIVE DATA NOTE: POSITIVE SCREENING RESULTS SHOULD BE CONSIDERED PRESUMPTIVE.WHEN COLLECTED FOR MEDICAL PURPOSES ONLY. SPECIMEN WILL NOTBE COLLECTED BY CHAIN OF CUSTODY.IF A CONFIRMATION OF POSITIVE RESULTS IS DESIRED, ACONFIRMATION TEST MUST BE REQUESTED BY THE PHYSICIAN AT ANADDITIONAL CHARGE TO THE PATIENT. [id number] 08:12:00* Test Item Value Reference Range Interpretation Comments GLUBED (test code = GLUBED) 140 mg/dL 74-106 H Performed by certified hoop rolls operator at [facility] COMPREHENSIVE METABOLIC [id number] 07:50:00* Test Item Value Reference Range Interpretation Comments SODIUM (test code = NA) 137 mmol/L 136-145 RESU LT VERIFIED BY REPEAT ANALYSIS POTASSIUM (test code = K) 3.9 mmol/L 3.5-5.1 N CHLORIDE (test code = CL) 105.0 mmol/L 98-107 N CARBON DIOXIDE (test code = CO2) 22.0 mmol/L 21-32 N ANION GAP (test code = GAP) 13.9 10-20 N GLUCOSE (test code = GLU) 166 mg/dL 74-106 H BLOOD UREA NITROGEN (test code = BUN) 17 mg/dL 7-18 N GLOMERULAR FILTRATION RATE (test code = GFR) > 60 mL/min >=60 Estimated GFR by using Modified MDRD formula.Chronic kidney disease is defined as either kidney damageor GFR <60 mL/min/1.73 m2 for >3 months. CREATININE (test code = CREAT) 0.70 mg/dL 0.7-1.3 N BUN/CREATININE RATIO (test code = BUN/CREA) 24.3 10-20 H TOTAL PROTEIN (test code = PROT) 6.9 gram/dL 6.4-8.2 N ALBUMIN (test code = ALB) 3.5 g/dL 3.4-5.0 N GLOBULIN (test code = GLOB) 3.4 gram/dL 2.7-4.2 N ALBUMIN/GLOBULIN RATIO (test code = A/G) 1.0 0.75-1.50 N CALCIUM (test code = CA) 8.5 mg/dL 8.5-10.1 N BILIRUBIN TOTAL (test code = BILT) 0.40 mg/dL 0.0-1.0 N SGOT/AST (test code = AST) 22 IUnit/L 15-37 N SGPT/ALT (test code = ALT) 54 IUnit/L 12-78 N ALKALINE PHOSPHATASE TOTAL (test code = ALKP) 80 IUnit/L 45-117 N Note change in reference range due to change in reagent. [id number] 07:50:00* Test Item Value Reference Range Interpretation Comments PHOSPHORUS (test code = PHOS) 3.8 mg/dL 2.5-4.9 N [id number] 07:50:00* Test Item Value Reference Range Interpretation Comments MAGNESIUM (test code = MAG) 2.0 mg/dL 1.8-2.4 N COMPREHENSIVE METABOLIC [id number] 07:07:00* Test Item Value Reference Range Interpretation Comments SODIUM (test code = NA) 137 mmol/L 136-145 RESU LT VERIFIED BY REPEAT ANALYSIS POTASSIUM (test code = K) 3.9 mmol/L 3.5-5.1 N CHLORIDE (test code = CL) 105.0 mmol/L 98-107 N CARBON DIOXIDE (test code = CO2) 22.0 mmol/L 21-32 N ANION GAP (test code = GAP) 13.9 10-20 N GLUCOSE (test code = GLU) 166 mg/dL 74-106 H BLOOD UREA NITROGEN (test code = BUN) 17 mg/dL 7-18 N GLOMERULAR FILTRATION RATE (test code = GFR) > 60 mL/min >=60 Estimated GFR by using Modified MDRD formula.Chronic kidney disease is defined as either kidney damageor GFR <60 mL/min/1.73 m2 for >3 months. CREATININE (test code = CREAT) 0.70 mg/dL 0.7-1.3 N BUN/CREATININE RATIO (test code = BUN/CREA) 24.3 10-20 H TOTAL PROTEIN (test code = PROT) 6.9 gram/dL 6.4-8.2 N ALBUMIN (test code = ALB) 3.5 g/dL 3.4-5.0 N GLOBULIN (test code = GLOB) 3.4 gram/dL 2.7-4.2 N ALBUMIN/GLOBULIN RATIO (test code = A/G) 1.0 0.75-1.50 N CALCIUM (test code = CA) 8.5 mg/dL 8.5-10.1 N BILIRUBIN TOTAL (test code = BILT) 0.40 mg/dL 0.0-1.0 N SGOT/AST (test code = AST) IUnit/L 15-37 SGPT/ALT (test code = ALT) IUnit/L 12-78 ALKALINE PHOSPHATASE TOTAL (test code = ALKP) 80 IUnit/L 45-117 N Note change in reference range due to change in reagent. [id number] 07:07:00* Test Item Value Reference Range Interpretation Comments PHOSPHORUS (test code = PHOS) 3.8 mg/dL 2.5-4.9 N [id number] 07:07:00* Test Item Value Reference Range Interpretation Comments MAGNESIUM (test code = MAG) 2.0 mg/dL 1.8-2.4 N LACTIC DEHYDROGENASE(LDH)2019-04-12 06:54:00* Test Item Value Reference Range Interpretation Comments LACTIC DEHYDROGENASE(LDH) (test code = LDH) 102 IUnit/L 84-246 N [id number] 04:40:00* Test Item Value Reference Range Interpretation Comments TROPONIN-I (test code = TROPI) <0.015 ng/mL 0-0.045 N DRUGS OF ABUSE SCREEN [id number] 02:03:00* Test Item Value Reference Range Interpretation Comments UA PH DIPSTICK (test code = ZEUS) 5.0 5.0-8.0 URN COCAINE (test code = COCAURN) POSITIVE <300 ng/mL A This test provides only a preliminary test result. A morespecific alternate chemical method must be used in order toobtain a confirmed analytical result. Gas chromatography/mass spectrometry (GC/MS) is thepreferred confirmatory method. Other chemical confirmationmethods are available. Clinical consideration and professional judgment should be applied to any drug of abusetest result, particularly when preliminary positive resultsare used.Unconfirmed screening results must not be used fornon-medical purposes (e.g., employment testing, legaltesting). URN CANNABINOIDS (test code = CANNABURN) NEGATIVE <50 ng/mL URN AMPHETAMINE (test code = AMPHETURN) NEGATIVE <1000 ng/mL URN BARBITURATE (test code = BARBITURN) NEGATIVE <200 ng/mL URN BENZODIAZEPINE (test code = BENZOURN) NEGATIVE <200 ng/mL URN OPIATES (test code = OPIATURN) NEGATIVE <300 ng/mL URN PHENCYCLIDINE (PCP) (test code = PHENCURN) NEGATIVE <25 ng/ mL URN METHADONE (test code = METHAURN) NEGATIVE <300 ng/mL DRUGS OF ABUSE SCREEN [id number] 01:33:00* Test Item Value Reference Range Interpretation Comments UA PH DIPSTICK (test code = ZEUS) 5.0 5.0-8.0 URN COCAINE (test code = COCAURN) <300 ng/mL URN CANNABINOIDS (test code = CANNABURN) <50 ng/mL URN AMPHETAMINE (test code = AMPHETURN) <1000 ng/mL URN BARBITURATE (test code = BARBITURN) <200 ng/mL URN BENZODIAZEPINE (test code = BENZOURN) <200 ng/mL URN OPIATES (test code = OPIATURN) <300 ng/mL URN PHENCYCLIDINE (PCP) (test code = PHENCURN) <25 ng/ mL URN METHADONE (test code = METHAURN) <300 ng/mL BASIC METABOLIC [id number] 00:47:00* Test Item Value Reference Range Interpretation Comments SODIUM (test code = NA) 132 mmol/L 136-145 L POTASSIUM (test code = K) 4.4 mmol/L 3.5-5.1 N CHLORIDE (test code = CL) 100.0 mmol/L 98-107 N CARBON DIOXIDE (test code = CO2) 20.0 mmol/L 21-32 L ANION GAP (test code = GAP) 16.4 10-20 N GLUCOSE (test code = GLU) 300 mg/dL 74-106 H BLOOD UREA NITROGEN (test code = BUN) 17 mg/dL 7-18 N GLOMERULAR FILTRATION RATE (test code = GFR) > 60 mL/min >=60 Estimated GFR by using Modified MDRD formula.Chronic kidney disease is defined as either kidney damageor GFR <60 mL/min/1.73 m2 for >3 months. CREATININE (test code = CREAT) 0.80 mg/dL 0.7-1.3 N BUN/CREATININE RATIO (test code = BUN/CREA) 21.3 10-20 H CALCIUM (test code = CA) 8.4 mg/dL 8.5-10.1 L HEPATIC FUNCTION [id number] 00:47:00* Test Item Value Reference Range Interpretation Comments TOTAL PROTEIN (test code = PROT) 7.3 gram/dL 6.4-8.2 N ALBUMIN (test code = ALB) 3.9 g/dL 3.4-5.0 N GLOBULIN (test code = GLOB) 3.4 gram/dL 2.7-4.2 N ALBUMIN/GLOBULIN RATIO (test code = A/G) 1.2 0.75-1.50 N BILIRUBIN TOTAL (test code = BILT) 0.70 mg/dL 0.0-1.0 N BILIRUBIN DIRECT (test code = BILD) 0.06 mg/dL 0.0-0.20 N SGOT/AST (test code = AST) 31 IUnit/L 15-37 N SGPT/ALT (test code = ALT) 65 IUnit/L 12-78 N ALKALINE PHOSPHATASE TOTAL (test code = ALKP) 93 IUnit/L 45-117 N Note change in reference range due to change in reagent. [id number] 00:47:00* Test Item Value Reference Range Interpretation Comments LIPASE (test code = LIP) 552 U/L 73.0-393.0 H [id number] 00:47:00* Test Item Value Reference Range Interpretation Comments TROPONIN-I (test code = TROPI) <0.015 ng/mL 0-0.045 N - CT ABD PELVIS [id number] 23:35:00 Name: DEANDRE PHILIP [facility] : 1985 Age/S: 34 / M [address] [facility] Unit #: [id number] Loc: DIGNA Isaacs [address] Phys: Mj Borges MANAGER AIR Acct: [id number] Dis Date: Status: REG ER PHONE #: [phone] Exam Date: 04/11/2019 2310 FAX #: [phone] Reason: ABD PAIN EXAMS: CPT CODE: [id number] CT ABD PELVIS W/CONT 39166 CT ABDOMEN AND PELVIS ( with intravenous contrast ) Location Code: B2 CLINICAL INDICATIONS: Abdominal pain. TECHNIQUE: Volumetric acquisition of abdomen from the level of the domes of the diaphragm through the symphysis pubis using 5 mm collimation after the administration of intravenous and oral contrast. Axial and coronal images were interpreted. Dose lowering technique with automatic exposure control utilized. COMPARISON: None. FINDINGS: Visualized lung bases demonstrate no consolidations or effusions. Liver demonstrates mild diffuse decreased attenuation without focal lesions. The bladder is surgically absent. The spleen, pancreas, adrenals and both kidneys are unremarkable. There is no evidence of intrahepatic biliary duct dilatation. No hydronephrosis seen. Visualized loops of small bowel are minimally prominent and fluid- filled in the left hemiabdomen. Normal appendix. Large bowel loops are within normal limits. Aorta tapers normally without aneurysmal dilatation. No lymphadenopathy CT Pelvis: The urinary bladder is unremarkable. Prostate gland within normal limits. Visualized osseous structures demonstrate no significant abnormality. IMPRESSION: 1. Minimally prominent fluid-filled small bowel loops in the left hemiabdomen may represent a mild focal enteritis. 2. Hepatic steatosis. PAGE 1 Signed Report (CONTINUED) Name: DEANDRE TRENT [facility] : 1985 A ge/S: 34 / M [address] Unit #: [id number] Loc : DIGNA Isaacs [address] Phys: Mj Borges NP Acct: [id number] Dis Date: Status: REG ER PHONE #: [phone] Exam Date: 04/11/2019 2310 FAX #: [phone] Reason: ABD PAIN EXAMS: CPT CODE: [id number] CT ABD PELVIS W/CONT 19992 <Continued> at 2335 Reported and signed by: Greg Baez M.D. CC: Andres Blanco MD; Mj Borges NP Technologist:DEANDRA YA, RT CTDI: DLP: Trnscb Date/Time: 04/11/2019 (2335) [email or web address] Orig Print D/T: S: 04/11/2019 (2338) PAGE 2 Signed Report - CT ABD PELVIS [id number] 23:35:00 Name: DEANDRE PHILIP [facility] : 1985 Age/S: 34 / M [address] Unit #: [id number] Loc: DIGNA Isaacs [address] Phys: Mj Borges MANAGER AIR Acct: [id number] Dis Date: 04/13/2019 Status: DIS IN PHONE #: [phone] Exam Date: 04/11/20190 FAX #: [phone] Reason: ABD PAIN EXAMS: CPT CODE: [id number] CT ABD PELVIS W/CONT 13327 CT ABDOMEN AND PELVIS ( with intravenous contrast ) Location Code: B2 CLINICAL INDICATIONS: Abdominal pain. TECHNIQUE: Volumetric acquisition of abdomen from the level of the domes of the diaphragm through the symphysis pubis using 5 mm collimation after the administration of intravenous and oral contrast. Axial and coronal images were interpreted. Dose lowering technique with automatic exposure control utilized. COMPARISON: None. FINDINGS: Visualized lung bases demonstrate no consolidations or effusions. Liver demonstrates mild diffuse decreased attenuation without focal lesions. The bladder is surgically absent. The spleen, pancreas, adrenals and both kidneys are unremarkable. There is no evidence of intrahepatic biliary duct dilatation. No hydronephrosis seen. Visualized loops of small bowel are minimally prominent and fluid-filled in the left hemiabdomen. Normal appendix. Large bowel loops are within normal limits. Aorta tapers normally without aneurysmal dilatation. No lymphadenopathy CT Pelvis: The urinary bladder is unremarkable. Prostate gland within normal limits. Visualized osseous structures demonstrate no significant abnormality. IMPRESSION: 1. Minimally prominent fluid-filled small bowel loops in the left hemiabdomen may represent a mild focal enteritis. 2. Hepatic steatosis. PAGE 1 Signed Report (CONTINUED) Name: DEANDRE PHILIP [facility] : 1985 Age/S: 34 / M [address] [facility] Unit #: [id number] Loc: RosaliaDIGNA [address] Phys: Mj Borges MANAGER AIR Acct: [id number] Dis Date: 04/13/2019 Status: DIS IN PHONE #: [phone] Exam Date: 04/11/2019 2310 FAX #: [phone] Reason: ABD PAIN EXAMS: CPT CODE: [id number] CT ABD PELVIS W/CONT 75389 <Continued> at 2335 Reported and signed by: Greg Baez M.D. CC: Andres Blanco MD; Mj Borges NP Technologist:RT MERVIN CTDI: DLP: Trnscb Date/Time: 04/11/2019 (1477) [id number] Orig Print D/T: S: 04/11/2019 (0934) PAGE 2 Signed Report BASIC METABOLIC [id number] 23:12:00* Test Item Value Reference Range Interpretation Comments SODIUM (test code = NA) 132 mmol/L 136-145 L POTASSIUM (test code = K) 4.4 mmol/L 3.5-5.1 N CHLORIDE (test code = CL) 100.0 mmol/L 98-107 N CARBON DIOXIDE (test code = CO2) 20.0 mmol/L 21-32 L ANION GAP (test code = GAP) 16.4 10-20 N GLUCOSE (test code = GLU) 300 mg/dL 74-106 H BLOOD UREA NITROGEN (test code = BUN) mg/dL 7-18 GLOMERULAR FILTRATION RATE (test code = GFR) > 60 mL/min >=60 Estimated GFR by using Modified MDRD formula.Chronic kidney disease is defined as either kidney damageor GFR <60 mL/min/1.73 m2 for >3 months. CREATININE (test code = CREAT) 0.80 mg/dL 0.7-1.3 N BUN/CREATININE RATIO (test code = BUN/CREA) 10-20 CALCIUM (test code = CA) 8.4 mg/dL 8.5-10.1 L HEPATIC FUNCTION [id number] 23:12:00* Test Item Value Reference Range Interpretation Comments TOTAL PROTEIN (test code = PROT) gram/dL 6.4-8.2 ALBUMIN (test code = ALB) 3.9 g/dL 3.4-5.0 N GLOBULIN (test code = GLOB) gram/dL 2.7-4.2 ALBUMIN/GLOBULIN RATIO (test code = A/G) 0.75-1.50 BILIRUBIN TOTAL (test code = BILT) 0.70 mg/dL 0.0-1.0 N BILIRUBIN DIRECT (test code = BILD) 0.06 mg/dL 0.0-0.20 N SGOT/AST (test code = AST) IUnit/L 15-37 SGPT/ALT (test code = ALT) IUnit/L 12-78 ALKALINE PHOSPHATASE TOTAL (test code = ALKP) 93 IUnit/L 45-117 N Note change in reference range due to change in reagent. [id number] 23:12:00* Test Item Value Reference Range Interpretation Comments LIPASE (test code = LIP) 552 U/L 73.0-393.0 H [id number] 23:12:00* Test Item Value Reference Range Interpretation Comments TROPONIN-I (test code = TROPI) <0.015 ng/mL 0-0.045 N BASIC METABOLIC [id number] 22:55:00* Test Item Value Reference Range Interpretation Comments SODIUM (test code = NA) 132 mmol/L 136-145 L POTASSIUM (test code = K) 4.4 mmol/L 3.5-5.1 N CHLORIDE (test code = CL) 100.0 mmol/L 98-107 N CARBON DIOXIDE (test code = CO2) mmol/L 21-32 ANION GAP (test code = GAP) 10-20 GLUCOSE (test code = GLU) mg/dL 74-106 BLOOD UREA NITROGEN (test code = BUN) mg/dL 7-18 GLOMERULAR FILTRATION RATE (test code = GFR) mL/min >=60 CREATININE (test code = CREAT) mg/dL 0.7-1.3 BUN/CREATININE RATIO (test code = BUN/CREA) 10-20 CALCIUM (test code = CA) mg/dL 8.5-10.1 HEPATIC FUNCTION [id number] 22:55:00* Test Item Value Reference Range Interpretation Comments TOTAL PROTEIN (test code = PROT) gram/dL 6.4-8.2 ALBUMIN (test code = ALB) g/dL 3.4-5.0 GLOBULIN (test code = GLOB) gram/dL 2.7-4.2 ALBUMIN/GLOBULIN RATIO (test code = A/G) 0.75-1.50 BILIRUBIN TOTAL (test code = BILT) mg/dL 0.0-1.0 BILIRUBIN DIRECT (test code = BILD) mg/dL 0.0-0.20 SGOT/AST (test code = AST) IUnit/L 15-37 SGPT/ALT (test code = ALT) IUnit/L 12-78 ALKALINE PHOSPHATASE TOTAL (test code = ALKP) IUnit/L 45-117 [id number] 22:55:00* Test Item Value Reference Range Interpretation Comments LIPASE (test code = LIP) U/L 73.0-393.0 [id number] 22:55:00* Test Item Value Reference Range Interpretation Comments TROPONIN-I (test code = TROPI) ng/mL 0-0.045 URINALYSIS [id number] 22:51:00* Test Item Value Reference Range Interpretation Comments UA COLOR (test code = COLU) Light-Yellow YELLOW UA APPEARANCE (test code = APPU) CLEAR CLEAR UA GLUCOSE DIPSTICK (test code = DGLUU) >1000 (4+) mg/dL NEGATIVE UA BILIRUBIN DIPSTICK (test code = BILU) NEGATIVE mg/dL NEGATIVE UA KETONE DIPSTICK (test code = KETU) 10 (1+) mg/dL NEGATIVE A UA SPECIFIC GRAVITY (test code = SGU) 1.034 1.001-1.035 UA BLOOD DIPSTICK (test code = ANNE MARIE) Negative mg/dL NEGATIVE UA PH DIPSTICK (test code = ZEUS) 5.0 5.0-8.0 UA PROTEIN DIPSTICK (test code = PROU) 20 (Trace) mg/dL NEGATIVE A UA UROBILINIOGEN DIPSTICK (test code = URO) Normal mg/dL NEGATIVE UA NITRITE DIPSTICK (test code = NISSA) NEGATIVE NEGATIVE UA LEUKOCYTE ESTERASE W REFLEX (test code = LEUUR) NEGATIVE Jann/uL NEGATIVE UA WBC (test code = WBCU) 0-5 per HPF 0-5 UA RBC (test code = RBCU) 0-2 #/HPF 0-5 UA EPITHELIAL CELLS (test code = EPIU) None seen per HPF FEW UA BACTERIA (test code = BACU) NONE SEEN #/HPF NONE UA MUCUS (test code = MUCU) FEW #/LPF FEW Urine Source? Clean CatchCBC W/O [id number] 22:37:00* Test Item Value Reference Range Interpretation Comments WHITE BLOOD CELL (test code = WBC) 9.3 K/mm3 4.5-12.5 N RED BLOOD CELL (test code = RBC) 5.60 mill/mm3 4.0-5.8 N HEMOGLOBIN (test code = HGB) 16.6 gram/dL 13.0-17.5 N HEMATOCRIT (test code = HCT) 46.4 % 42.0-52.0 N MEAN CELL VOLUME (test code = MCV) 82.9 fL 80-98 N MEAN CELL HGB (test code = MCH) 29.6 picogram 27.0-33.0 N MEAN CELL HGB CONCETRATION (test code = MCHC) 35.8 gram/dL 33.0-36. 0 N RED CELL DISTRIBUTION WIDTH (test code = RDW) 13.2 % 11.6-16. 2 N PLATELET COUNT (test code = PLT) 293 K/mm3 150-450 N MEAN PLATELET VOLUME (test code = MPV) 10.2 fL 6.7-11.0 N CBC W/O [id number] 22:36:00* Test Item Value Reference Range Interpretation Comments WHITE BLOOD CELL (test code = WBC) K/mm3 4.5-12.5 RED BLOOD CELL (test code = RBC) mill/mm3 4.0-5.8 HEMOGLOBIN (test code = HGB) 16.6 gram/dL 13.0-17.5 N HEMATOCRIT (test code = HCT) 46.4 % 42.0-52.0 N MEAN CELL VOLUME (test code = MCV) fL 80-98 MEAN CELL HGB (test code = MCH) picogram 27.0-33.0 MEAN CELL HGB CONCETRATION (test code = MCHC) gram/dL 33.0-36. 0 RED CELL DISTRIBUTION WIDTH (test code = RDW) % 11.6-16. 2 PLATELET COUNT (test code = PLT) K/mm3 150-450 MEAN PLATELET VOLUME (test code = MPV) fL 6.7-11.0 [id number] 08:04:00* Test Item Value Reference Range Interpretation Comments GLUBED (test code = GLUBED) 137 mg/dL 74-106 H Performed by certified hoop rolls operator at [facility] BASIC METABOLIC [id number] 05:15:00* Test Item Value Reference Range Interpretation Comments SODIUM (test code = NA) 137 mmol/L 136-145 N POTASSIUM (test code = K) 4.2 mmol/L 3.5-5.1 N CHLORIDE (test code = CL) 103.0 mmol/L 98-107 N CARBON DIOXIDE (test code = CO2) 29.0 mmol/L 21-32 N ANION GAP (test code = GAP) 9.2 10-20 L GLUCOSE (test code = GLU) 231 mg/dL 74-106 H BLOOD UREA NITROGEN (test code = BUN) 11 mg/dL 7-18 N GLOMERULAR FILTRATION RATE (test code = GFR) > 60 mL/min >=60 Estimated GFR by using Modified MDRD formula.Chronic kidney disease is defined as either kidney damageor GFR <60 mL/min/1.73 m2 for >3 months. CREATININE (test code = CREAT) 0.80 mg/dL 0.7-1.3 N BUN/CREATININE RATIO (test code = BUN/CREA) 13.8 10-20 N CALCIUM (test code = CA) 9.2 mg/dL 8.5-10.1 N BASIC METABOLIC [id number] 05:10:00* Test Item Value Reference Range Interpretation Comments SODIUM (test code = NA) 137 mmol/L 136-145 N POTASSIUM (test code = K) 4.2 mmol/L 3.5-5.1 N CHLORIDE (test code = CL) 103.0 mmol/L 98-107 N CARBON DIOXIDE (test code = CO2) mmol/L 21-32 ANION GAP (test code = GAP) 10-20 GLUCOSE (test code = GLU) mg/dL 74-106 BLOOD UREA NITROGEN (test code = BUN) mg/dL 7-18 GLOMERULAR FILTRATION RATE (test code = GFR) mL/min >=60 CREATININE (test code = CREAT) mg/dL 0.7-1.3 BUN/CREATININE RATIO (test code = BUN/CREA) 10-20 CALCIUM (test code = CA) mg/dL 8.5-10.1 CBC W/AUTO [id number] 04:49:00* Test Item Value Reference Range Interpretation Comments WHITE BLOOD CELL (test code = WBC) 7.0 K/mm3 4.5-12.5 N RED BLOOD CELL (test code = RBC) 5.26 mill/mm3 4.0-5.8 N HEMOGLOBIN (test code = HGB) 14.7 gram/dL 13.0-17.5 N HEMATOCRIT (test code = HCT) 44.2 % 42.0-52.0 N MEAN CELL VOLUME (test code = MCV) 84.0 fL 80-98 N MEAN CELL HGB (test code = MCH) 27.9 picogram 27.0-33.0 N MEAN CELL HGB CONCETRATION (test code = MCHC) 33.3 gram/dL 33.0-36. 0 N RED CELL DISTRIBUTION WIDTH (test code = RDW) 12.4 % 11.6-16. 2 N RED CELL DISTRIBUTION WIDTH SD (test code = RDW-SD) 37.7 fL 37 .0-51.0 N PLATELET COUNT (test code = PLT) 244 K/mm3 150-450 N MEAN PLATELET VOLUME (test code = MPV) 10.4 fL 6.7-11.0 N NEUTROPHIL % (test code = NT%) 49.5 % 39.0-69.0 N IMMATURE GRANULOCYTE % (test code = IG%) 1.6 % 0.0-5.0 N LYMPHOCYTE % (test code = LY%) 27.3 % 25.0-55.0 N MONOCYTE % (test code = MO%) 11.2 % 0.0-10.0 H EOSINOPHIL % (test code = EO%) 9.4 % 0.0-5.0 H BASOPHIL % (test code = BA%) 1.0 % 0.0-1.0 N NUCLEATED RBC % (test code = NRBC%) 0.0 % 0-0 N NEUTROPHIL # (test code = NT#) 3.44 K/mm3 1.8-7.7 N IMMATURE GRANULOCYTE # (test code = IG#) 0.11 x10 3/uL 0-0.03 H LYMPHOCYTE # (test code = LY#) 1.90 K/mm3 1.0-5.0 N MONOCYTE # (test code = MO#) 0.78 K/mm3 0-0.8 N EOSINOPHIL # (test code = EO#) 0.65 K/mm3 0.0-0.5 H BASOPHIL # (test code = BA#) 0.07 K/mm3 0.0-0.2 N NUCLEATED RBC # (test code = NRBC#) 0.00 K/mm3 0.0-0.1 N [id number] 21:26:00* Test Item Value Reference Range Interpretation Comments GLUBED (test code = GLUBED) 242 mg/dL 74-106 H Performed by certified hoop rolls operator at [facility] [id number] 16:25:00* Test Item Value Reference Range Interpretation Comments GLUBED (test code = GLUBED) 184 mg/dL 74-106 H Performed by certified hoop rolls operator at [facility] [id number] 11:17:00* Test Item Value Reference Range Interpretation Comments GLUBED (test code = GLUBED) 223 mg/dL 74-106 H Performed by certified hoop rolls operator at [facility] [id number] 07:51:00* Test Item Value Reference Range Interpretation Comments GLUBED (test code = GLUBED) 229 mg/dL 74-106 H Performed by certified hoop rolls operator at [facility] [id number] 21:05:00* Test Item Value Reference Range Interpretation Comments GLUBED (test code = GLUBED) 156 mg/dL 74-106 H Performed by certified hoop rolls operator at [facility] [id number] 18:34:00* Test Item Value Reference Range Interpretation Comments GLUBED (test code = GLUBED) 199 mg/dL 74-106 H Performed by certified hoop rolls operator at [facility] [id number] 18:34:00* Test Item Value Reference Range Interpretation Comments GLUBED (test code = GLUBED) 213 mg/dL 74-106 H Performed by certified hoop rolls operator at [facility] [id number] 08:41:00* Test Item Value Reference Range Interpretation Comments GLUBED (test code = GLUBED) 128 mg/dL 74-106 H Performed by certified hoop rolls operator at [facility] [id number] 21:11:00* Test Item Value Reference Range Interpretation Comments GLUBED (test code = GLUBED) 245 mg/dL 74-106 H Performed by certified hoop rolls operator at [facility] [id number] 16:43:00* Test Item Value Reference Range Interpretation Comments GLUBED (test code = GLUBED) 179 mg/dL 74-106 H Performed by certified hoop rolls operator at [facility] [id number] 12:19:00* Test Item Value Reference Range Interpretation Comments GLUBED (test code = GLUBED) 147 mg/dL 74-106 H [facility] hoop rolls [facility] [id number] 08:25:00* Test Item Value Reference Range Interpretation Comments GLUBED (test code = GLUBED) 138 mg/dL 74-106 H [facility]op rolls [facility] ACUTE HEPATITIS [id number] 08:10:00* Test Item Value Reference Range Interpretation Comments AB HEPATITIS A IGM (test code = HAVMAB) Negative Negative AG HEPAT B SURF (test code = HBSAG) Negative Negative HEPATITIS B CORE ANTIBODY,IGM (test code = HBCMAB) Negative Neg ative AB HEPATITIS C (test code = HCVAB) <0.1 0.0-0.9 INFCE Result Units: s/co ratio Negative: < 0.8 Indeterminate: 0.8 - 0.9 Positive: > 0.9 The CDC recommends that a positive HCV antibody result be followed up with a HCV Nucleic Acid Amplification test (177986).Performed At: [facility] [address] [id number] Jadon Carvalho MD Ph:[phone] [id number] 20:11:00* Test Item Value Reference Range Interpretation Comments GLUBED (test code = GLUBED) 216 mg/dL 74-106 H [facility]op rolls [facility] [id number] 16:53:00* Test Item Value Reference Range Interpretation Comments GLUBED (test code = GLUBED) 142 mg/dL 74-106 H [facility] certified hoop rolls [facility] [id number] 12:02:00* Test Item Value Reference Range Interpretation Comments GLUBED (test code = GLUBED) 210 mg/dL 74-106 H Performed by certified hoop rolls operator at [facility] - US ABDOMEN [id number] 10:41:00 Name: DEANDRE PHILIP [facility] : 1985 Age/S: 34 / M [address] Unit #: [id number] Loc: [place] [address] Phys: Ana Pearl MD Acct: [id number] Dis Date: Status: ADM IN PHONE #: [phone] Exam Date: 03/07/2019 1033 FAX #: [phone] Reason: cirrhosis? EXAMS: CPT CODE: [id number] US ABDOMEN LTD 73098 REASON FOR EXAM: cirrhosis? EXAM ORDER DATE: 03/07/2019 8:56 AM Attending M.D.: Ana Pearl MD PROCEDURE: - US ABDOMEN LTD Technique: Grayscale and color Doppler images of the right-upper quadrant of the abdomen. Comparison: CT of the abdomen and pelvis October 17, 2018 FINDINGS: Aorta and IVC: Patent and grossly normal in caliber. Liver: Size: 20.3 cm craniocaudally Parenchyma and contour: Smooth contour. Normal echogenicity. Cysts and/or masses: None. Intrahepatic bile ducts: No intrahepatic biliary ductal dilation Common bile duct: 2.3 mm in diameter. No echogenic filling defects in visualized duct. Gallbladder: Surgically absent Portal vein: Portal vein caliber is within normal limits. Portal vein is patent with hepatopetal flow. Pancreas: Incompletely visualized. However the visualized portions are grossly within normal limits. Right kidney: parenchyma echogenicity: Normal echogenicity size: 12.8 x 6.0 x 5.2 cm stones: none cy sts/masses: none hydronephrosis: none Ascites/pleural effus ions: None PAGE 1 Signed Report (CONTINUED) Name: DEANDRE PHILIP [facility] : 1985 Age/S: 34 / M [address] [facility] Unit #: [id number] Loc: [place] [address] Phys: Ana Pearl MD Acct: [id number] Dis Date: Status: ADM IN PHONE #: [phone] Exam Date: 03/07/2019 1036 FAX #: [phone] Reason: cirrhosis? EXAMS: CPT CODE: [id number] ABDOMEN LTD [address]44 <Continued> IMPRESSION: Hepatomegaly with hepatic steatosis. Prior cholecystectomy. Location: [facility] Electronically Si gned by Jonathan Chandra MD on 03/07/2019 at 1041 Reported an d signed by: Jonathan Chandra MD CC: Shayy Chamberlain MD; Ana Pearl MD Technologist: DONNA LUONG RT(R), SHAN Trnhib Date/Time: 03/07/2019 (104) [email or web address] Orig Print D/T: S: 03/07/2019 (1044) Probe: PAGE 2 Signed Report HEPATIC FUNCTION [id number] 09:37:00* Test Item Value Reference Range Interpretation Comments TOTAL PROTEIN (test code = PROT) 6.8 gram/dL 6.4-8.2 N ALBUMIN (test code = ALB) 3.8 g/dL 3.4-5.0 N GLOBULIN (test code = GLOB) 3.0 gram/dL 2.7-4.2 N ALBUMIN/GLOBULIN RATIO (test code = A/G) 1.3 0.75-1.50 N BILIRUBIN TOTAL (test code = BILT) 0.20 mg/dL 0.0-1.0 N BILIRUBIN DIRECT (test code = BILD) 0.07 mg/dL 0.0-0.20 N SGOT/AST (test code = AST) 31 IUnit/L 15-37 N SGPT/ALT (test code = ALT) 74 IUnit/L 12-78 N ALKALINE PHOSPHATASE TOTAL (test code = ALKP) 69 IUnit/L 45-117 N Note change in reference range due to change in reagent. [id number] 08:23:00* Test Item Value Reference Range Interpretation Comments GLUBED (test code = GLUBED) 105 mg/dL 74-106 N Performed by certified hoop rolls operator at [facility] BASIC METABOLIC [id number] 05:51:00* Test Item Value Reference Range Interpretation Comments SODIUM (test code = NA) 140 mmol/L 136-145 N POTASSIUM (test code = K) 3.8 mmol/L 3.5-5.1 N CHLORIDE (test code = CL) 106.0 mmol/L 98-107 N CARBON DIOXIDE (test code = CO2) 29.0 mmol/L 21-32 N ANION GAP (test code = GAP) 8.8 10-20 L GLUCOSE (test code = GLU) 114 mg/dL 74-106 H BLOOD UREA NITROGEN (test code = BUN) 14 mg/dL 7-18 N GLOMERULAR FILTRATION RATE (test code = GFR) > 60 mL/min >=60 Estimated GFR by using Modified MDRD formula.Chronic kidney disease is defined as either kidney damageor GFR <60 mL/min/1.73 m2 for >3 months. CREATININE (test code = CREAT) 0.70 mg/dL 0.7-1.3 N BUN/CREATININE RATIO (test code = BUN/CREA) 20.0 10-20 N CALCIUM (test code = CA) 8.9 mg/dL 8.5-10.1 N BASIC METABOLIC [id number] 05:42:00* Test Item Value Reference Range Interpretation Comments SODIUM (test code = NA) 140 mmol/L 136-145 N POTASSIUM (test code = K) 3.8 mmol/L 3.5-5.1 N CHLORIDE (test code = CL) 106.0 mmol/L 98-107 N CARBON DIOXIDE (test code = CO2) mmol/L 21-32 ANION GAP (test code = GAP) 10-20 GLUCOSE (test code = GLU) mg/dL 74-106 BLOOD UREA NITROGEN (test code = BUN) mg/dL 7-18 GLOMERULAR FILTRATION RATE (test code = GFR) mL/min >=60 CREATININE (test code = CREAT) mg/dL 0.7-1.3 BUN/CREATININE RATIO (test code = BUN/CREA) 10-20 CALCIUM (test code = CA) mg/dL 8.5-10.1 CBC W/AUTO [id number] 05:37:00* Test Item Value Reference Range Interpretation Comments WHITE BLOOD CELL (test code = WBC) 8.9 K/mm3 4.5-12.5 N RED BLOOD CELL (test code = RBC) 5.20 mill/mm3 4.0-5.8 N HEMOGLOBIN (test code = HGB) 14.9 gram/dL 13.0-17.5 N HEMATOCRIT (test code = HCT) 43.9 % 42.0-52.0 N MEAN CELL VOLUME (test code = MCV) 84.4 fL 80-98 N MEAN CELL HGB (test code = MCH) 28.7 picogram 27.0-33.0 N MEAN CELL HGB CONCETRATION (test code = MCHC) 33.9 gram/dL 33.0-36. 0 N RED CELL DISTRIBUTION WIDTH (test code = RDW) 12.5 % 11.6-16. 2 N RED CELL DISTRIBUTION WIDTH SD (test code = RDW-SD) 37.9 fL 37 .0-51.0 N PLATELET COUNT (test code = PLT) 305 K/mm3 150-450 N MEAN PLATELET VOLUME (test code = MPV) 10.1 fL 6.7-11.0 N NEUTROPHIL % (test code = NT%) 48.1 % 39.0-69.0 N IMMATURE GRANULOCYTE % (test code = IG%) 1.7 % 0.0-5.0 N LYMPHOCYTE % (test code = LY%) 31.7 % 25.0-55.0 N MONOCYTE % (test code = MO%) 8.4 % 0.0-10.0 N EOSINOPHIL % (test code = EO%) 9.4 % 0.0-5.0 H BASOPHIL % (test code = BA%) 0.7 % 0.0-1.0 N NUCLEATED RBC % (test code = NRBC%) 0.0 % 0-0 N NEUTROPHIL # (test code = NT#) 4.29 K/mm3 1.8-7.7 N IMMATURE GRANULOCYTE # (test code = IG#) 0.15 x10 3/uL 0-0.03 H LYMPHOCYTE # (test code = LY#) 2.83 K/mm3 1.0-5.0 N MONOCYTE # (test code = MO#) 0.75 K/mm3 0-0.8 N EOSINOPHIL # (test code = EO#) 0.84 K/mm3 0.0-0.5 H BASOPHIL # (test code = BA#) 0.06 K/mm3 0.0-0.2 N NUCLEATED RBC # (test code = NRBC#) 0.00 K/mm3 0.0-0.1 N [id number] 16:28:00* Test Item Value Reference Range Interpretation Comments GLUBED (test code = GLUBED) 184 mg/dL 74-106 H Performed by certified hoop rolls operator at [facility] [id number] 12:36:00* Test Item Value Reference Range Interpretation Comments GLUBED (test code = GLUBED) 261 mg/dL 74-106 H Performed by certified hoop rolls operator at [facility] [id number] 07:26:00* Test Item Value Reference Range Interpretation Comments GLUBED (test code = GLUBED) 194 mg/dL 74-106 H Performed by certified hoop rolls operator at [facility] [id number] 20:23:00* Test Item Value Reference Range Interpretation Comments GLUBED (test code = GLUBED) 266 mg/dL 74-106 H Performed by certified hoop rolls operator at [facility] [id number] 16:23:00* Test Item Value Reference Range Interpretation Comments GLUBED (test code = GLUBED) 292 mg/dL 74-106 H Performed by certified hoop rolls operator at [facility] [id number] 16:23:00* Test Item Value Reference Range Interpretation Comments GLUBED (test code = GLUBED) 302 mg/dL 74-106 H Performed by certified hoop rolls operator at [facility] [id number] 11:24:00* Test Item Value Reference Range Interpretation Comments GLUBED (test code = GLUBED) 218 mg/dL 74-106 H Performed by certified hoop rolls operator at [facility] [id number] 07:51:00* Test Item Value Reference Range Interpretation Comments GLUBED (test code = GLUBED) 158 mg/dL 74-106 H Performed by certified hoop rolls operator at [facility] BASIC METABOLIC [id number] 06:00:00* Test Item Value Reference Range Interpretation Comments SODIUM (test code = NA) 140 mmol/L 136-145 N POTASSIUM (test code = K) 3.8 mmol/L 3.5-5.1 N CHLORIDE (test code = CL) 106.0 mmol/L 98-107 N CARBON DIOXIDE (test code = CO2) 27.0 mmol/L 21-32 N ANION GAP (test code = GAP) 10.8 10-20 N GLUCOSE (test code = GLU) 237 mg/dL 74-106 H BLOOD UREA NITROGEN (test code = BUN) 12 mg/dL 7-18 N GLOMERULAR FILTRATION RATE (test code = GFR) > 60 mL/min >=60 Estimated GFR by using Modified MDRD formula.Chronic kidney disease is defined as either kidney damageor GFR <60 mL/min/1.73 m2 for >3 months. CREATININE (test code = CREAT) 0.70 mg/dL 0.7-1.3 N BUN/CREATININE RATIO (test code = BUN/CREA) 17.1 10-20 N CALCIUM (test code = CA) 8.9 mg/dL 8.5-10.1 N BASIC METABOLIC [id number] 05:54:00* Test Item Value Reference Range Interpretation Comments SODIUM (test code = NA) 140 mmol/L 136-145 N POTASSIUM (test code = K) 3.8 mmol/L 3.5-5.1 N CHLORIDE (test code = CL) 106.0 mmol/L 98-107 N CARBON DIOXIDE (test code = CO2) mmol/L 21-32 ANION GAP (test code = GAP) 10-20 GLUCOSE (test code = GLU) mg/dL 74-106 BLOOD UREA NITROGEN (test code = BUN) mg/dL 7-18 GLOMERULAR FILTRATION RATE (test code = GFR) mL/min >=60 CREATININE (test code = CREAT) mg/dL 0.7-1.3 BUN/CREATININE RATIO (test code = BUN/CREA) 10-20 CALCIUM (test code = CA) mg/dL 8.5-10.1 CBC W/AUTO [id number] 05:33:00* Test Item Value Reference Range Interpretation Comments WHITE BLOOD CELL (test code = WBC) 8.0 K/mm3 4.5-12.5 N RED BLOOD CELL (test code = RBC) 5.07 mill/mm3 4.0-5.8 N HEMOGLOBIN (test code = HGB) 14.1 gram/dL 13.0-17.5 N HEMATOCRIT (test code = HCT) 43.8 % 42.0-52.0 N MEAN CELL VOLUME (test code = MCV) 86.4 fL 80-98 N MEAN CELL HGB (test code = MCH) 27.8 picogram 27.0-33.0 N MEAN CELL HGB CONCETRATION (test code = MCHC) 32.2 gram/dL 33.0-36. 0 L RED CELL DISTRIBUTION WIDTH (test code = RDW) 12.4 % 11.6-16. 2 N RED CELL DISTRIBUTION WIDTH SD (test code = RDW-SD) 38.9 fL 37 .0-51.0 N PLATELET COUNT (test code = PLT) 304 K/mm3 150-450 N MEAN PLATELET VOLUME (test code = MPV) 10.5 fL 6.7-11.0 N NEUTROPHIL % (test code = NT%) 45.6 % 39.0-69.0 N IMMATURE GRANULOCYTE % (test code = IG%) 1.1 % 0.0-5.0 N LYMPHOCYTE % (test code = LY%) 32.2 % 25.0-55.0 N MONOCYTE % (test code = MO%) 7.1 % 0.0-10.0 N EOSINOPHIL % (test code = EO%) 13.5 % 0.0-5.0 H BASOPHIL % (test code = BA%) 0.5 % 0.0-1.0 N NUCLEATED RBC % (test code = NRBC%) 0.0 % 0-0 N NEUTROPHIL # (test code = NT#) 3.63 K/mm3 1.8-7.7 N IMMATURE GRANULOCYTE # (test code = IG#) 0.09 x10 3/uL 0-0.03 H LYMPHOCYTE # (test code = LY#) 2.57 K/mm3 1.0-5.0 N MONOCYTE # (test code = MO#) 0.57 K/mm3 0-0.8 N EOSINOPHIL # (test code = EO#) 1.08 K/mm3 0.0-0.5 H BASOPHIL # (test code = BA#) 0.04 K/mm3 0.0-0.2 N NUCLEATED RBC # (test code = NRBC#) 0.00 K/mm3 0.0-0.1 N [id number] 21:10:00* Test Item Value Reference Range Interpretation Comments GLUBED (test code = GLUBED) 283 mg/dL 74-106 H Performed by certified hoop rolls operator at [facility] [id number] 16:52:00* Test Item Value Reference Range Interpretation Comments GLUBED (test code = GLUBED) 197 mg/dL 74-106 H Performed by certified hoop rolls operator at [facility] [id number] 11:42:00* Test Item Value Reference Range Interpretation Comments GLUBED (test code = GLUBED) 187 mg/dL 74-106 H Performed by certified hoop rolls operator at [facility] [id number] 08:01:00* Test Item Value Reference Range Interpretation Comments GLUBED (test code = GLUBED) 88 mg/dL 74-106 N Performed by certified hoop rolls operator at [facility] [id number] 20:51:00* Test Item Value Reference Range Interpretation Comments GLUBED (test code = GLUBED) 267 mg/dL 74-106 H Performed by certified hoop rolls operator at [facility] [id number] 16:28:00* Test Item Value Reference Range Interpretation Comments GLUBED (test code = GLUBED) 234 mg/dL 74-106 H Performed by certified hoop rolls operator at [facility] [id number] 11:54:00* Test Item Value Reference Range Interpretation Comments GLUBED (test code = GLUBED) 157 mg/dL 74-106 H Performed by certified hoop rolls operator at [facility] [id number] 08:23:00* Test Item Value Reference Range Interpretation Comments GLUBED (test code = GLUBED) 144 mg/dL 74-106 H Performed by certified hoop rolls operator at [facility] BASIC METABOLIC [id number] 06:18:00* Test Item Value Reference Range Interpretation Comments SODIUM (test code = NA) 143 mmol/L 136-145 N POTASSIUM (test code = K) 3.5 mmol/L 3.5-5.1 N CHLORIDE (test code = CL) 112.0 mmol/L 98-107 H CARBON DIOXIDE (test code = CO2) 24.0 mmol/L 21-32 N ANION GAP (test code = GAP) 10.5 10-20 N GLUCOSE (test code = GLU) 149 mg/dL 74-106 H BLOOD UREA NITROGEN (test code = BUN) 12 mg/dL 7-18 N GLOMERULAR FILTRATION RATE (test code = GFR) > 60 mL/min >=60 Estimated GFR by using Modified MDRD formula.Chronic kidney disease is defined as either kidney damageor GFR <60 mL/min/1.73 m2 for >3 months. CREATININE (test code = CREAT) 0.70 mg/dL 0.7-1.3 N BUN/CREATININE RATIO (test code = BUN/CREA) 17.1 10-20 N CALCIUM (test code = CA) 8.2 mg/dL 8.5-10.1 L CBC W/AUTO [id number] 06:13:00* Test Item Value Reference Range Interpretation Comments WHITE BLOOD CELL (test code = WBC) 7.3 K/mm3 4.5-12.5 N RED BLOOD CELL (test code = RBC) 4.58 mill/mm3 4.0-5.8 N HEMOGLOBIN (test code = HGB) 12.9 gram/dL 13.0-17.5 L HEMATOCRIT (test code = HCT) 39.6 % 42.0-52.0 L MEAN CELL VOLUME (test code = MCV) 86.5 fL 80-98 N MEAN CELL HGB (test code = MCH) 28.2 picogram 27.0-33.0 N MEAN CELL HGB CONCETRATION (test code = MCHC) 32.6 gram/dL 33.0-36. 0 L RED CELL DISTRIBUTION WIDTH (test code = RDW) 12.6 % 11.6-16. 2 N RED CELL DISTRIBUTION WIDTH SD (test code = RDW-SD) 39.8 fL 37 .0-51.0 N PLATELET COUNT (test code = PLT) 283 K/mm3 150-450 N MEAN PLATELET VOLUME (test code = MPV) 10.5 fL 6.7-11.0 N NEUTROPHIL % (test code = NT%) 46.4 % 39.0-69.0 N IMMATURE GRANULOCYTE % (test code = IG%) 0.6 % 0.0-5.0 N LYMPHOCYTE % (test code = LY%) 33.9 % 25.0-55.0 N MONOCYTE % (test code = MO%) 7.9 % 0.0-10.0 N EOSINOPHIL % (test code = EO%) 10.6 % 0.0-5.0 H BASOPHIL % (test code = BA%) 0.6 % 0.0-1.0 N NUCLEATED RBC % (test code = NRBC%) 0.0 % 0-0 N NEUTROPHIL # (test code = NT#) 3.37 K/mm3 1.8-7.7 N IMMATURE GRANULOCYTE # (test code = IG#) 0.04 x10 3/uL 0-0.03 H LYMPHOCYTE # (test code = LY#) 2.46 K/mm3 1.0-5.0 N MONOCYTE # (test code = MO#) 0.57 K/mm3 0-0.8 N EOSINOPHIL # (test code = EO#) 0.77 K/mm3 0.0-0.5 H BASOPHIL # (test code = BA#) 0.04 K/mm3 0.0-0.2 N NUCLEATED RBC # (test code = NRBC#) 0.00 K/mm3 0.0-0.1 N MANUAL DIFF REQUIRED (test code = MDIFF) NO BASIC METABOLIC [id number] 06:13:00* Test Item Value Reference Range Interpretation Comments SODIUM (test code = NA) 143 mmol/L 136-145 N POTASSIUM (test code = K) 3.5 mmol/L 3.5-5.1 N CHLORIDE (test code = CL) 112.0 mmol/L 98-107 H CARBON DIOXIDE (test code = CO2) mmol/L 21-32 ANION GAP (test code = GAP) 10-20 GLUCOSE (test code = GLU) mg/dL 74-106 BLOOD UREA NITROGEN (test code = BUN) mg/dL 7-18 GLOMERULAR FILTRATION RATE (test code = GFR) mL/min >=60 CREATININE (test code = CREAT) mg/dL 0.7-1.3 BUN/CREATININE RATIO (test code = BUN/CREA) 10-20 CALCIUM (test code = CA) mg/dL 8.5-10.1 [id number] 20:14:00* Test Item Value Reference Range Interpretation Comments GLUBED (test code = GLUBED) 182 mg/dL 74-106 H Performed by certified hoop rolls operator at [facility] [id number] 15:59:00* Test Item Value Reference Range Interpretation Comments GLUBED (test code = GLUBED) 223 mg/dL 74-106 H Performed by certified hoop rolls operator at [facility] [id number] 11:35:00* Test Item Value Reference Range Interpretation Comments GLUBED (test code = GLUBED) 164 mg/dL 74-106 H Performed by certified hoop rolls operator at [facility] [id number] 07:50:00* Test Item Value Reference Range Interpretation Comments GLUBED (test code = GLUBED) 113 mg/dL 74-106 H Performed by certified hoop rolls operator at [facility] BASIC METABOLIC [id number] 05:33:00* Test Item Value Reference Range Interpretation Comments SODIUM (test code = NA) 143 mmol/L 136-145 N POTASSIUM (test code = K) 4.4 mmol/L 3.5-5.1 N CHLORIDE (test code = CL) 111.0 mmol/L 98-107 H CARBON DIOXIDE (test code = CO2) 26.0 mmol/L 21-32 N ANION GAP (test code = GAP) 10.4 10-20 N GLUCOSE (test code = GLU) 125 mg/dL 74-106 H BLOOD UREA NITROGEN (test code = BUN) 10 mg/dL 7-18 N GLOMERULAR FILTRATION RATE (test code = GFR) > 60 mL/min >=60 Estimated GFR by using Modified MDRD formula.Chronic kidney disease is defined as either kidney damageor GFR <60 mL/min/1.73 m2 for >3 months. CREATININE (test code = CREAT) 0.60 mg/dL 0.7-1.3 L BUN/CREATININE RATIO (test code = BUN/CREA) 16.7 10-20 N CALCIUM (test code = CA) 9.0 mg/dL 8.5-10.1 N CBC W/AUTO [id number] 05:29:00* Test Item Value Reference Range Interpretation Comments WHITE BLOOD CELL (test code = WBC) 10.8 K/mm3 4.5-12.5 N RED BLOOD CELL (test code = RBC) 4.68 mill/mm3 4.0-5.8 N HEMOGLOBIN (test code = HGB) 13.3 gram/dL 13.0-17.5 N HEMATOCRIT (test code = HCT) 39.9 % 42.0-52.0 L MEAN CELL VOLUME (test code = MCV) 85.3 fL 80-98 N MEAN CELL HGB (test code = MCH) 28.4 picogram 27.0-33.0 N MEAN CELL HGB CONCETRATION (test code = MCHC) 33.3 gram/dL 33.0-36. 0 N RED CELL DISTRIBUTION WIDTH (test code = RDW) 12.6 % 11.6-16. 2 N RED CELL DISTRIBUTION WIDTH SD (test code = RDW-SD) 38.7 fL 37 .0-51.0 N PLATELET COUNT (test code = PLT) 301 K/mm3 150-450 N MEAN PLATELET VOLUME (test code = MPV) 10.7 fL 6.7-11.0 N NEUTROPHIL % (test code = NT%) 80.7 % 39.0-69.0 H IMMATURE GRANULOCYTE % (test code = IG%) 0.5 % 0.0-5.0 N LYMPHOCYTE % (test code = LY%) 10.5 % 25.0-55.0 L MONOCYTE % (test code = MO%) 6.3 % 0.0-10.0 N EOSINOPHIL % (test code = EO%) 1.8 % 0.0-5.0 N BASOPHIL % (test code = BA%) 0.2 % 0.0-1.0 N NUCLEATED RBC % (test code = NRBC%) 0.0 % 0-0 N NEUTROPHIL # (test code = NT#) 8.75 K/mm3 1.8-7.7 H IMMATURE GRANULOCYTE # (test code = IG#) 0.05 x10 3/uL 0-0.03 H LYMPHOCYTE # (test code = LY#) 1.14 K/mm3 1.0-5.0 N MONOCYTE # (test code = MO#) 0.68 K/mm3 0-0.8 N EOSINOPHIL # (test code = EO#) 0.19 K/mm3 0.0-0.5 N BASOPHIL # (test code = BA#) 0.02 K/mm3 0.0-0.2 N NUCLEATED RBC # (test code = NRBC#) 0.00 K/mm3 0.0-0.1 N [id number] 20:55:00* Test Item Value Reference Range Interpretation Comments GLUBED (test code = GLUBED) 187 mg/dL 74-106 H Performed by certified hoop rolls operator at [facility] [id number] 16:24:00* Test Item Value Reference Range Interpretation Comments GLUBED (test code = GLUBED) 274 mg/dL 74-106 H [facility] - DUP AB/PEL/SC [id number] 09:07:00 Name: DEANDRE PHILIP [facility] : 1985 Age/S: 34 / M [address] [facility] Unit #: [id number] Loc: [place] [address] Phys: Cheryl Lawton MANAGER AIR Acct: [id number] Dis Date: Status: REG ER PHONE #: [phone] Exam Date: 03/01/2019 0840 FAX #: [phone] Reason: SCROTAL PAIN EXAMS: CPT CODE: [id number] DUP AB/PEL/SC COMP 20774 HISTORY: Testicular pain. COMPARISON: None available. Bilateral testicular ultrasound with color and Doppler flow and grayscale imaging. Location: [facility]. Low-resistance arterial Doppler flow with normal spectral waveform is documented on either side excluding testicular torsion bilaterally. Echogenicity and texture symmetrical and normal without hypervascularity excluding orchitis bilaterally. No solid or cystic intratesticular mass on either side. RIGHT testicle is measuring 4.4 x 2.2 x 3.5 cm. Epididymis is within normal limits. Complex collection within the scrotal sac inferior to the testicle which is displaced superiorly measuring 4.3 x 2 x 3.2 cm with inflammatory changes within the scrotal skin. This suggests a scrotal abscess or phlegmon. No flow noted within it. No hydrocele or varicocele. LEFT testicle is measuring 4.4 x 2.3 x 3.9 cm. Epididymis is within normal limits. Complex collection as well within the left scrotal sac inferior to the skull displacing it superiorly without flow measuring 4.3 x 2.2 x 2.6 cm. Scrotal skin thickening. This also is suggestive of an abscess. No hydrocele or varicocele. IMPRESSION: Complex avascular bilateral scrotal sac collections inferior to the testicles and separate from the testicles as described above suspicious for bilateral scrotal abscess. No testicular torsion or solid or cystic intratesticular mass. No orchitis or epididymitis. Cellulitis of the scrotal skin. No hydrocele or varicocele. at 0907 Reported and signed by: Ronni Velásquez M.D. PAGE 1 Signed Report (CONTINUED) Name: DEANDRE PHILIP [facility] : 1985 Age/S: 34 / M [address] Unit #: [id number] Loc: [place] [address] Phys: Cheryl Lawton MANAGER AIR Acct: [id number] Dis Date: Status: REG ER PHONE #: [phone] Exam Date: 03/01/2019 0840 FAX #: [phone] Reason: SCROTAL PAIN EXAMS: CPT CODE: [id number] DUP AB/PEL/SC COMP 39363 <Continued> CC: Cheryl Lawton NP Technologist: ZEN MIRANDA RT(R),RDMS Trnscb Date/Time: 03/01/2019 (906) t.SDR.TH4 Orig Print D/T: S: 03/01/2019 (0911) Probe: PAGE 2 Signed Report - US SCROTUM AND [id number] 09:07:00 Name: DEANDRE PHILIP [facility] : 1985 Age/S: 34 / M [address] Unit #: [id number] Loc: [place] [address] Phys: Kely Lawton MANAGER AIR Acct: [id number] Di s Date: Status: REG ER PHONE #: Exam Date: 03/01/2019 0840 FAX #: Reason: SCROTAL PAIN EXAMS: CPT CODE: [id number] US SCROTUM AND CNTS 24970 HISTORY: Testicular pain. COMPARISON: None available. Bilateral testicular ul trasound with color and Doppler flow and grayscale imaging. Location: [facility]. Low-resistance arterial Doppler flow with normal sp ectral waveform is documented on either side excluding testicular torsion bilaterally. Echogenicity and texture symmetrical and normal without hypervascularity excluding orchitis bilaterally. No solid or cystic intra testicular mass on either side. RIGHT testicle is measuring 4.4 x 2.2 x 3.5 cm. Epididymis is within normal limits. Complex collection withi n the scrotal sac inferior to the testicle which is displaced superiorly m easuring 4.3 x 2 x 3.2 cm with inflammatory changes within the scrotal ski n. This suggests a scrotal abscess or phlegmon. No flow noted within it. N o hydrocele or varicocele. LEFT testicle is measuring 4.4 x 2.3 x 3.9 cm. Epididymis is within normal limits. Complex collection as we ll within the left scrotal sac inferior to the skull displacing it superio rly without flow measuring 4.3 x 2.2 x 2.6 cm. Scrotal skin thickening. Th is also is suggestive of an abscess. No hydrocele or varicocele. IMPRESSION: Complex avascular bilateral scrotal sac col lections inferior to the testicles and separate from the testicles as de scribed above suspicious for bilateral scrotal abscess. No testicular torsion or solid or cystic intratesticular mass. No orch itis or epididymitis. Cellulitis of the scrotal skin. No hydrocele or va ricocele. a t 0907 Reported and signed by: Ronni Velásquez M.D. 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 Acct: [id number] Dis D ate: Status: REG ER PHONE #: Exam Date: 03/01/2019 0840 FAX #: [phone] Reason: SCROTAL PAIN EXAMS: CPT CODE: [id number] US SCROTUM AND C NTS 08671 <Continued> CC: Cheryl Lawton NP Technologist: ZEN MIRANDA RT(R),RDMS Trnscb Date/Time: 03/01/2019 (906) AlbertoTH4 Orig Print D/T: S: 03/01/2019 (910) Probe: PAGE 2 Signed Report BASIC METABOLIC [id number] 09:02:00* Test Item Value Reference Range Interpretation Comments SODIUM (test code = NA) 141 mmol/L 136-145 N POTASSIUM (test code = K) 4.1 mmol/L 3.5-5.1 N CHLORIDE (test code = CL) 108.0 mmol/L 98-107 H CARBON DIOXIDE (test code = CO2) 27.0 mmol/L 21-32 N ANION GAP (test code = GAP) 10.1 10-20 N GLUCOSE (test code = GLU) 113 mg/dL 74-106 H BLOOD UREA NITROGEN (test code = BUN) 18 mg/dL 7-18 N GLOMERULAR FILTRATION RATE (test code = GFR) > 60 mL/min >=60 Estimated GFR by using Modified MDRD formula.Chronic kidney disease is defined as either kidney damageor GFR <60 mL/min/1.73 m2 for >3 months. CREATININE (test code = CREAT) 1.00 mg/dL 0.7-1.3 N BUN/CREATININE RATIO (test code = BUN/CREA) 18.0 10-20 N CALCIUM (test code = CA) 9.2 mg/dL 8.5-10.1 N HEPATIC FUNCTION [id number] 09:02:00* Test Item Value Reference Range Interpretation Comments TOTAL PROTEIN (test code = PROT) 7.2 gram/dL 6.4-8.2 N ALBUMIN (test code = ALB) 4.1 g/dL 3.4-5.0 N GLOBULIN (test code = GLOB) 3.1 gram/dL 2.7-4.2 N ALBUMIN/GLOBULIN RATIO (test code = A/G) 1.3 0.75-1.50 N BILIRUBIN TOTAL (test code = BILT) 0.20 mg/dL 0.0-1.0 N BILIRUBIN DIRECT (test code = BILD) 0.10 mg/dL 0.0-0.20 N SGOT/AST (test code = AST) 35 IUnit/L 15-37 N SGPT/ALT (test code = ALT) 71 IUnit/L 12-78 N ALKALINE PHOSPHATASE TOTAL (test code = ALKP) 71 IUnit/L 45-117 N Note change in reference range due to change in reagent. URINALYSIS [id number] 08:57:00* Test Item Value Reference Range Interpretation Comments UA COLOR (test code = COLU) YELLOW YELLOW UA APPEARANCE (test code = APPU) CLEAR CLEAR UA GLUCOSE DIPSTICK (test code = DGLUU) NEGATIVE mg/dL NEGATIVE UA BILIRUBIN DIPSTICK (test code = BILU) NEGATIVE mg/dL NEGATIVE UA KETONE DIPSTICK (test code = KETU) TRACE mg/dL NEGATIVE A UA SPECIFIC GRAVITY (test code = SGU) 1.032 1.001-1.035 UA BLOOD DIPSTICK (test code = ANNE MARIE) Negative mg/dL NEGATIVE UA PH DIPSTICK (test code = ZEUS) 5.5 5.0-8.0 UA PROTEIN DIPSTICK (test code = PROU) 10 (Trace) mg/dL NEGATIVE A UA UROBILINIOGEN DIPSTICK (test code = URO) Normal mg/dL NEGATIVE UA NITRITE DIPSTICK (test code = NISSA) NEGATIVE NEGATIVE UA LEUKOCYTE ESTERASE W REFLEX (test code = LEUUR) NEGATIVE Jann/uL NEGATIVE UA WBC (test code = WBCU) 0-5 per HPF 0-5 UA EPITHELIAL CELLS (test code = EPIU) FEW per HPF FEW UA MUCUS (test code = MUCU) FEW TO MODERATE #/LPF FEW Urine Source? Clean CatchBASIC METABOLIC [id number] 08:54:00* Test Item Value Reference Range Interpretation Comments SODIUM (test code = NA) 141 mmol/L 136-145 N POTASSIUM (test code = K) 4.1 mmol/L 3.5-5.1 N CHLORIDE (test code = CL) 108.0 mmol/L 98-107 H CARBON DIOXIDE (test code = CO2) mmol/L 21-32 ANION GAP (test code = GAP) 10-20 GLUCOSE (test code = GLU) mg/dL 74-106 BLOOD UREA NITROGEN (test code = BUN) mg/dL 7-18 GLOMERULAR FILTRATION RATE (test code = GFR) mL/min >=60 CREATININE (test code = CREAT) mg/dL 0.7-1.3 BUN/CREATININE RATIO (test code = BUN/CREA) 10-20 CALCIUM (test code = CA) mg/dL 8.5-10.1 HEPATIC FUNCTION [id number] 08:54:00* Test Item Value Reference Range Interpretation Comments TOTAL PROTEIN (test code = PROT) gram/dL 6.4-8.2 ALBUMIN (test code = ALB) g/dL 3.4-5.0 GLOBULIN (test code = GLOB) gram/dL 2.7-4.2 ALBUMIN/GLOBULIN RATIO (test code = A/G) 0.75-1.50 BILIRUBIN TOTAL (test code = BILT) mg/dL 0.0-1.0 BILIRUBIN DIRECT (test code = BILD) mg/dL 0.0-0.20 SGOT/AST (test code = AST) IUnit/L 15-37 SGPT/ALT (test code = ALT) IUnit/L 12-78 ALKALINE PHOSPHATASE TOTAL (test code = ALKP) IUnit/L 45-117 URINALYSIS [id number] 08:44:00* Test Item Value Reference Range Interpretation Comments UA COLOR (test code = COLU) YELLOW YELLOW UA APPEARANCE (test code = APPU) CLEAR CLEAR UA GLUCOSE DIPSTICK (test code = DGLUU) NEGATIVE mg/dL NEGATIVE UA BILIRUBIN DIPSTICK (test code = BILU) NEGATIVE mg/dL NEGATIVE UA KETONE DIPSTICK (test code = KETU) TRACE mg/dL NEGATIVE A UA SPECIFIC GRAVITY (test code = SGU) 1.032 1.001-1.035 UA BLOOD DIPSTICK (test code = ANNE MARIE) Negative mg/dL NEGATIVE UA PH DIPSTICK (test code = ZEUS) 5.5 5.0-8.0 UA PROTEIN DIPSTICK (test code = PROU) 10 (Trace) mg/dL NEGATIVE A UA UROBILINIOGEN DIPSTICK (test code = URO) Normal mg/dL NEGATIVE UA NITRITE DIPSTICK (test code = NISSA) NEGATIVE NEGATIVE UA LEUKOCYTE ESTERASE W REFLEX (test code = LEUUR) NEGATIVE Jann/uL NEGATIVE UA WBC (test code = WBCU) per HPF 0-5 UA RBC (test code = RBCU) per HPF 0-5 UA EPITHELIAL CELLS (test code = EPIU) per HPF Few UA BACTERIA (test code = BACU) per HPF NONE Urine Source? Clean CatchCBC W/O [id number] 08:44:00* Test Item Value Reference Range Interpretation Comments WHITE BLOOD CELL (test code = WBC) 6.0 K/mm3 4.5-12.5 N RED BLOOD CELL (test code = RBC) 5.35 mill/mm3 4.0-5.8 N HEMOGLOBIN (test code = HGB) 15.2 gram/dL 13.0-17.5 N HEMATOCRIT (test code = HCT) 45.8 % 42.0-52.0 N MEAN CELL VOLUME (test code = MCV) 85.6 fL 80-98 N MEAN CELL HGB (test code = MCH) 28.4 picogram 27.0-33.0 N MEAN CELL HGB CONCETRATION (test code = MCHC) 33.2 gram/dL 33.0-36. 0 N RED CELL DISTRIBUTION WIDTH (test code = RDW) 12.5 % 11.6-16. 2 N PLATELET COUNT (test code = PLT) 321 K/mm3 150-450 N MEAN PLATELET VOLUME (test code = MPV) 10.5 fL 6.7-11.0 N [id number] 11:32:00* Test Item Value Reference Range Interpretation Comments GLUBED (test code = GLUBED) 118 mg/dL 74-106 H Performed by certified hoop rolls operator at [facility] [id number] 08:55:00* Test Item Value Reference Range Interpretation Comments GLUBED (test code = GLUBED) 103 mg/dL 74-106 N Performed by certified hoop rolls operator at [facility] [id number] 02:57:00* Test Item Value Reference Range Interpretation Comments LIPASE (test code = LIP) 251 U/L 73.0-393.0 N [id number] 21:04:00* Test Item Value Reference Range Interpretation Comments GLUBED (test code = GLUBED) 163 mg/dL 74-106 H Performed by certified hoop rolls operator at [facility] [id number] 16:08:00* Test Item Value Reference Range Interpretation Comments GLUBED (test code = GLUBED) 124 mg/dL 74-106 H Performed by certified hoop rolls operator at [facility] [id number] 11:39:00* Test Item Value Reference Range Interpretation Comments GLUBED (test code = GLUBED) 113 mg/dL 74-106 H Performed by certified hoop rolls operator at [facility] [id number] 09:57:00* Test Item Value Reference Range Interpretation Comments LIPASE (test code = LIP) 522 U/L 73.0-393.0 H [id number] 07:58:00* Test Item Value Reference Range Interpretation Comments GLUBED (test code = GLUBED) 128 mg/dL 74-106 H Performed by certified hoop rolls operator at [facility] CBC W/AUTO [id number] 03:29:00* Test Item Value Reference Range Interpretation Comments WHITE BLOOD CELL (test code = WBC) 10.4 K/mm3 4.5-12.5 N RED BLOOD CELL (test code = RBC) 5.17 mill/mm3 4.0-5.8 N HEMOGLOBIN (test code = HGB) 14.9 gram/dL 13.0-17.5 N HEMATOCRIT (test code = HCT) 44.5 % 42.0-52.0 N MEAN CELL VOLUME (test code = MCV) 86.1 fL 80-98 N MEAN CELL HGB (test code = MCH) 28.8 picogram 27.0-33.0 N MEAN CELL HGB CONCETRATION (test code = MCHC) 33.5 gram/dL 33.0-36. 0 N RED CELL DISTRIBUTION WIDTH (test code = RDW) 12.3 % 11.6-16. 2 N RED CELL DISTRIBUTION WIDTH SD (test code = RDW-SD) 38.3 fL 37 .0-51.0 N PLATELET COUNT (test code = PLT) 228 K/mm3 150-450 N MEAN PLATELET VOLUME (test code = MPV) 9.9 fL 6.7-11.0 N NEUTROPHIL % (test code = NT%) 78.2 % 39.0-69.0 H IMMATURE GRANULOCYTE % (test code = IG%) 0.6 % 0.0-5.0 N LYMPHOCYTE % (test code = LY%) 13.6 % 25.0-55.0 L MONOCYTE % (test code = MO%) 5.8 % 0.0-10.0 N EOSINOPHIL % (test code = EO%) 1.4 % 0.0-5.0 N BASOPHIL % (test code = BA%) 0.4 % 0.0-1.0 N NUCLEATED RBC % (test code = NRBC%) 0.0 % 0-0 N NEUTROPHIL # (test code = NT#) 8.15 K/mm3 1.8-7.7 H IMMATURE GRANULOCYTE # (test code = IG#) 0.06 x10 3/uL 0-0.03 H LYMPHOCYTE # (test code = LY#) 1.42 K/mm3 1.0-5.0 N MONOCYTE # (test code = MO#) 0.60 K/mm3 0-0.8 N EOSINOPHIL # (test code = EO#) 0.15 K/mm3 0.0-0.5 N BASOPHIL # (test code = BA#) 0.04 K/mm3 0.0-0.2 N NUCLEATED RBC # (test code = NRBC#) 0.00 K/mm3 0.0-0.1 N MANUAL DIFF REQUIRED (test code = MDIFF) NO COMPREHENSIVE METABOLIC [id number] 03:13:00* Test Item Value Reference Range Interpretation Comments SODIUM (test code = NA) 137 mmol/L 136-145 N POTASSIUM (test code = K) 4.2 mmol/L 3.5-5.1 N CHLORIDE (test code = CL) 104.0 mmol/L 98-107 N CARBON DIOXIDE (test code = CO2) 24.0 mmol/L 21-32 N ANION GAP (test code = GAP) 13.2 10-20 N GLUCOSE (test code = GLU) 122 mg/dL 74-106 H BLOOD UREA NITROGEN (test code = BUN) 7 mg/dL 7-18 N GLOMERULAR FILTRATION RATE (test code = GFR) > 60 mL/min >=60 Estimated GFR by using Modified MDRD formula.Chronic kidney disease is defined as either kidney damageor GFR <60 mL/min/1.73 m2 for >3 months. CREATININE (test code = CREAT) 0.70 mg/dL 0.7-1.3 N BUN/CREATININE RATIO (test code = BUN/CREA) 10.0 10-20 N TOTAL PROTEIN (test code = PROT) 7.3 gram/dL 6.4-8.2 N ALBUMIN (test code = ALB) 3.7 g/dL 3.4-5.0 N GLOBULIN (test code = GLOB) 3.6 gram/dL 2.7-4.2 N ALBUMIN/GLOBULIN RATIO (test code = A/G) 1.0 0.75-1.50 N CALCIUM (test code = CA) 9.3 mg/dL 8.5-10.1 N BILIRUBIN TOTAL (test code = BILT) 0.90 mg/dL 0.0-1.0 N SGOT/AST (test code = AST) 61 IUnit/L 15-37 H SGPT/ALT (test code = ALT) 98 IUnit/L 12-78 H ALKALINE PHOSPHATASE TOTAL (test code = ALKP) 80 IUnit/L 45-117 N Note change in reference range due to change in reagent. COMPREHENSIVE METABOLIC [id number] 03:07:00* Test Item Value Reference Range Interpretation Comments SODIUM (test code = NA) 137 mmol/L 136-145 N POTASSIUM (test code = K) 4.2 mmol/L 3.5-5.1 N CHLORIDE (test code = CL) 104.0 mmol/L 98-107 N CARBON DIOXIDE (test code = CO2) mmol/L 21-32 ANION GAP (test code = GAP) 10-20 GLUCOSE (test code = GLU) mg/dL 74-106 BLOOD UREA NITROGEN (test code = BUN) mg/dL 7-18 GLOMERULAR FILTRATION RATE (test code = GFR) mL/min >=60 CREATININE (test code = CREAT) mg/dL 0.7-1.3 BUN/CREATININE RATIO (test code = BUN/CREA) 10-20 TOTAL PROTEIN (test code = PROT) gram/dL 6.4-8.2 ALBUMIN (test code = ALB) g/dL 3.4-5.0 GLOBULIN (test code = GLOB) gram/dL 2.7-4.2 ALBUMIN/GLOBULIN RATIO (test code = A/G) 0.75-1.50 CALCIUM (test code = CA) mg/dL 8.5-10.1 BILIRUBIN TOTAL (test code = BILT) mg/dL 0.0-1.0 SGOT/AST (test code = AST) IUnit/L 15-37 SGPT/ALT (test code = ALT) IUnit/L 12-78 ALKALINE PHOSPHATASE TOTAL (test code = ALKP) IUnit/L 45-117 [id number] 20:17:00* Test Item Value Reference Range Interpretation Comments GLUBED (test code = GLUBED) 126 mg/dL 74-106 H Performed by certified hoop rolls operator at [facility] [id number] 17:47:00* Test Item Value Reference Range Interpretation Comments GLUBED (test code = GLUBED) 129 mg/dL 74-106 H Performed by certified hoop rolls operator at [facility] LIPID PROFILE (CORONARY RISK)2018-10-17 13:02:00* Test Item Value Reference Range Interpretation Comments TRIGLYCERIDES (test code = TRIG) 728 mg/dL 20-150 H CHOLESTEROL (test code = CHOL) 188 mg/dL 0-200 N CHOLESTEROL/HDL RATIO (test code = CHOLHDL) 6.0 RATIO 0-4.9 H RISK ASSOCIATED WITH CHOL/HDL RATIOS: Risk Male Female1/2 AVERAGE 3.43 3.27AVERAGE 4.97 4.442X AVERAGE 9.55 7.053X AVERAGE 23.39 11.04 REFERENCE VALUE IS RELATED TO RISK LEVELS ASRECOMMENDED BY THE KEVIN. HEART, LUNG, AND BLOOD INST. HDL CHOLESTEROL (test code = HDL) 27 mg/dL 40-60 L LIPOPROTEIN LDL (test code = LDL) 77 mg/dL 100-129 L Reference Interval: mg/dL mmol/L Optimal <100 <2.6Near/above optimal 100-129 2.6- 3.3Borderline High 130-159 3.4-4.1High 160-189 4.1-4.9Very High >=190 >=4.9========= This LDL result is a direct measurement.========= LACTIC [id number] 12:56:00* Test Item Value Reference Range Interpretation Comments LACTIC ACID (test code = LACT) 1.2 mmol/L 0.4-1.9 N [id number] 12:06:00* Test Item Value Reference Range Interpretation Comments GLUBED (test code = GLUBED) 115 mg/dL 74-106 H Performed by certified hoop rolls operator at [facility] [id number] 11:09:00* Test Item Value Reference Range Interpretation Comments LIPASE (test code = LIP) 727 U/L 73.0-393.0 H [id number] 11:07:00* Test Item Value Reference Range Interpretation Comments GLYCOSYLATED HEMOGLOBIN (HA1C) (test code = GLYHGB) 7.8 % HbA1 4. 8-6.0 H ESTIMATED AVERAGE GLUCOSE (test code = EAG) 177 MG/DL LACTIC [id number] 08:57:00* Test Item Value Reference Range Interpretation Comments LACTIC ACID (test code = LACT) 1.1 mmol/L 0.4-1.9 N [id number] 08:02:00* Test Item Value Reference Range Interpretation Comments GLUBED (test code = GLUBED) 149 mg/dL 74-106 H Performed by certified hoop rolls operator at [facility] - CT ABD PELVIS [id number] 05:22:00 Name: DEANDRE PHILIP [facility] : 1985 Age/S: 33 / M [address] [facility] Unit #: [id number] Loc: [place] [address] 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 Indication: Abdominal pain Location: R16 Comparison: March 14, 2016 Technique: CT images of the abdomen and pelvis were obtained from the diaphragm to the pubic symphysis after the administration of intravenous contrast contrast. Coronal reformats are provided. One or more of the following dose reduction techniques were used: Automated exposure control, adjustment of the mA and/or kV according to patient size, and/or utilization of iterative reconstruction technique. Findings: Lungs bases: Unremarkable. Upper GI/pancreas: Nonspecific prominent induration and free fluid seen surrounding the thickened portion of the duodenum and the pancreas possibly reflective of pneumonitis versus pancreatitis recommend correlation with lab values Liver: Unremarkable. Gallbladder: Unre markable. . Spleen: Unremarkable. Adrenal glands: Unremarkable . Kidneys: Unremarkable. Bowel: No bowel obstruction. The appendix i s unremarkable. Skeletal: No acute fracture.. Impression: Nonspecific prominent induration and free fluid seen surrounding the thickened portion of the duodenum and the pancreas possibly reflective of pneumonitis versus pancreatitis recommend corre lation with lab values. PAGE 1 Signed Rep ort (CONTINUED) Name: DEANDRE PHILIP [facility] : 1985 Age/S: 33 / M [address] [facility] Unit #: [id number] Loc: [place] [address] Phys: Cheryl Lawton NP Acct: [id number] Dis Date: Status: REG ER PHONE #: [phone] Exam Date: 10/17/2018 0500 FAX #: [phone] Reason: abdominal pain EXAMS: CPT CODE: [id number] CT ABD PELVIS W/CONT 86453 <Continued> at 0522 Reported and signed by: Sandee Fowler M.D. CC: Vivienne Madison MD; Cheryl Lawton NP Technologist:RT MERVIN CTDI: DLP: Trnscb Date/Time: 10/17/2018 (521) t.SDR.SR31 Orig Print D/T: S: 10/17/2018 (524) PAGE 2 Signed Report [id number] 05:06:00* Test Item Value Reference Range Interpretation Comments TROPONIN-I (test code = TROPI) <0.015 ng/mL 0-0.045 N LACTIC [id number] 04:48:00* Test Item Value Reference Range Interpretation Comments LACTIC ACID (test code = LACT) 1.0 mmol/L 0.4-1.9 N URINALYSIS [id number] 04:46:00* Test Item Value Reference Range Interpretation Comments UA COLOR (test code = COLU) YELLOW YELLOW UA APPEARANCE (test code = APPU) CLEAR CLEAR UA GLUCOSE DIPSTICK (test code = DGLUU) 100 (1+) mg/dL NEGATIVE A UA BILIRUBIN DIPSTICK (test code = BILU) NEGATIVE mg/dL NEGATIVE UA KETONE DIPSTICK (test code = KETU) TRACE mg/dL NEGATIVE A UA SPECIFIC GRAVITY (test code = SGU) 1.039 1.001-1.035 UA BLOOD DIPSTICK (test code = ANNE MARIE) 0.03 mg/dL (Trace) mg/dL NEGATI VE A UA PH DIPSTICK (test code = ZEUS) 5.5 5.0-8.0 UA PROTEIN DIPSTICK (test code = PROU) 50 (1+) mg/dL NEGATIVE A UA UROBILINIOGEN DIPSTICK (test code = URO) Normal mg/dL NEGATIVE UA NITRITE DIPSTICK (test code = NISSA) NEGATIVE NEGATIVE UA LEUKOCYTE ESTERASE W REFLEX (test code = LEUUR) NEGATIVE Jann/uL NEGATIVE UA WBC (test code = WBCU) 0-5 per HPF 0-5 UA RBC (test code = RBCU) 0-2 #/HPF 0-5 UA EPITHELIAL CELLS (test code = EPIU) FEW per HPF FEW UA BACTERIA (test code = BACU) FEW #/HPF NONE A UA MUCUS (test code = MUCU) FEW #/LPF FEW Urine Source? Clean CatchURINALYSIS [id number] 04:45:00* Test Item Value Reference Range Interpretation Comments UA COLOR (test code = COLU) YELLOW YELLOW UA APPEARANCE (test code = APPU) CLEAR CLEAR UA GLUCOSE DIPSTICK (test code = DGLUU) 100 (1+) mg/dL NEGATIVE A UA BILIRUBIN DIPSTICK (test code = BILU) NEGATIVE mg/dL NEGATIVE UA KETONE DIPSTICK (test code = KETU) TRACE mg/dL NEGATIVE A UA SPECIFIC GRAVITY (test code = SGU) 1.039 1.001-1.035 UA BLOOD DIPSTICK (test code = ANNE MARIE) 0.03 mg/dL (Trace) mg/dL NEGATI VE A UA PH DIPSTICK (test code = ZEUS) 5.5 5.0-8.0 UA PROTEIN DIPSTICK (test code = PROU) 50 (1+) mg/dL NEGATIVE A UA UROBILINIOGEN DIPSTICK (test code = URO) Normal mg/dL NEGATIVE UA NITRITE DIPSTICK (test code = NISSA) NEGATIVE NEGATIVE UA LEUKOCYTE ESTERASE W REFLEX (test code = LEUUR) NEGATIVE Jann/uL NEGATIVE UA WBC (test code = WBCU) per HPF 0-5 UA RBC (test code = RBCU) per HPF 0-5 UA EPITHELIAL CELLS (test code = EPIU) per HPF Few UA BACTERIA (test code = BACU) per HPF NONE Urine Source? Clean CatchBASIC METABOLIC [id number] 04:45:00* Test Item Value Reference Range Interpretation Comments SODIUM (test code = NA) 137 mmol/L 136-145 N POTASSIUM (test code = K) 3.8 mmol/L 3.5-5.1 N CHLORIDE (test code = CL) 104.0 mmol/L 98-107 N CARBON DIOXIDE (test code = CO2) 24.0 mmol/L 21-32 N ANION GAP (test code = GAP) 12.8 10-20 N GLUCOSE (test code = GLU) 162 mg/dL 74-106 H BLOOD UREA NITROGEN (test code = BUN) 16 mg/dL 7-18 N GLOMERULAR FILTRATION RATE (test code = GFR) > 60 mL/min >=60 Estimated GFR by using Modified MDRD formula.Chronic kidney disease is defined as either kidney damageor GFR <60 mL/min/1.73 m2 for >3 months. CREATININE (test code = CREAT) 1.00 mg/dL 0.7-1.3 N BUN/CREATININE RATIO (test code = BUN/CREA) 16.0 10-20 N CALCIUM (test code = CA) 9.4 mg/dL 8.5-10.1 N HEPATIC FUNCTION [id number] 04:45:00* Test Item Value Reference Range Interpretation Comments TOTAL PROTEIN (test code = PROT) 7.9 gram/dL 6.4-8.2 N ALBUMIN (test code = ALB) 4.2 g/dL 3.4-5.0 N GLOBULIN (test code = GLOB) 3.7 gram/dL 2.7-4.2 N ALBUMIN/GLOBULIN RATIO (test code = A/G) 1.1 0.75-1.50 N BILIRUBIN TOTAL (test code = BILT) 0.30 mg/dL 0.0-1.0 N BILIRUBIN DIRECT (test code = BILD) 0.07 mg/dL 0.0-0.20 N SGOT/AST (test code = AST) 46 IUnit/L 15-37 H SGPT/ALT (test code = ALT) 92 IUnit/L 12-78 H ALKALINE PHOSPHATASE TOTAL (test code = ALKP) 86 IUnit/L 45-117 N Note change in reference range due to change in reagent. [id number] 04:45:00* Test Item Value Reference Range Interpretation Comments LIPASE (test code = LIP) 834 U/L 73.0-393.0 H BASIC METABOLIC [id number] 04:38:00* Test Item Value Reference Range Interpretation Comments SODIUM (test code = NA) 137 mmol/L 136-145 N POTASSIUM (test code = K) 3.8 mmol/L 3.5-5.1 N CHLORIDE (test code = CL) 104.0 mmol/L 98-107 N CARBON DIOXIDE (test code = CO2) mmol/L 21-32 ANION GAP (test code = GAP) 10-20 GLUCOSE (test code = GLU) mg/dL 74-106 BLOOD UREA NITROGEN (test code = BUN) mg/dL 7-18 GLOMERULAR FILTRATION RATE (test code = GFR) mL/min >=60 CREATININE (test code = CREAT) mg/dL 0.7-1.3 BUN/CREATININE RATIO (test code = BUN/CREA) 10-20 CALCIUM (test code = CA) mg/dL 8.5-10.1 HEPATIC FUNCTION [id number] 04:38:00* Test Item Value Reference Range Interpretation Comments TOTAL PROTEIN (test code = PROT) gram/dL 6.4-8.2 ALBUMIN (test code = ALB) g/dL 3.4-5.0 GLOBULIN (test code = GLOB) gram/dL 2.7-4.2 ALBUMIN/GLOBULIN RATIO (test code = A/G) 0.75-1.50 BILIRUBIN TOTAL (test code = BILT) mg/dL 0.0-1.0 BILIRUBIN DIRECT (test code = BILD) mg/dL 0.0-0.20 SGOT/AST (test code = AST) IUnit/L 15-37 SGPT/ALT (test code = ALT) IUnit/L 12-78 ALKALINE PHOSPHATASE TOTAL (test code = ALKP) IUnit/L 45-117 [id number] 04:38:00* Test Item Value Reference Range Interpretation Comments LIPASE (test code = LIP) U/L 73.0-393.0 CBC W/O [id number] 04:22:00* Test Item Value Reference Range Interpretation Comments WHITE BLOOD CELL (test code = WBC) 10.4 K/mm3 4.5-12.5 N RED BLOOD CELL (test code = RBC) 5.40 mill/mm3 4.0-5.8 N HEMOGLOBIN (test code = HGB) 15.7 gram/dL 13.0-17.5 N HEMATOCRIT (test code = HCT) 46.8 % 42.0-52.0 N MEAN CELL VOLUME (test code = MCV) 86.7 fL 80-98 N MEAN CELL HGB (test code = MCH) 29.1 picogram 27.0-33.0 N MEAN CELL HGB CONCETRATION (test code = MCHC) 33.5 gram/dL 33.0-36. 0 N RED CELL DISTRIBUTION WIDTH (test code = RDW) 12.2 % 11.6-16. 2 N PLATELET COUNT (test code = PLT) 256 K/mm3 150-450 N MEAN PLATELET VOLUME (test code = MPV) 9.6 fL 6.7-11.0 N CBC W/O [id number] 04:20:00* Test Item Value Reference Range Interpretation Comments WHITE BLOOD CELL (test code = WBC) K/mm3 4.5-12.5 RED BLOOD CELL (test code = RBC) mill/mm3 4.0-5.8 HEMOGLOBIN (test code = HGB) 15.7 gram/dL 13.0-17.5 N HEMATOCRIT (test code = HCT) 46.8 % 42.0-52.0 N MEAN CELL VOLUME (test code = MCV) fL 80-98 MEAN CELL HGB (test code = MCH) picogram 27.0-33.0 MEAN CELL HGB CONCETRATION (test code = MCHC) gram/dL 33.0-36. 0 RED CELL DISTRIBUTION WIDTH (test code = RDW) % 11.6-16. 2 PLATELET COUNT (test code = PLT) K/mm3 150-450 MEAN PLATELET VOLUME (test code = MPV) fL 6.7-11.0 - XR CHEST 1 [id number] 04:09:00 FAX: Cheryl Lawton NP [place]: St: REG Name: DEANDRE SMITH [facility] : [birth year] 84 Age/S: 33/M [address] [facility] Unit #: [id number] Loc: [place] [address] Phys: Cheryl Lawton NP Acct: [id number] Dis Date: Status: REG ER PHONE #: [phone] Exam Date: 10/17/2018 0355 FAX #: [phone] Reason: ABDOMINAL PAIN EXAMS: CPT CODE: [id number] XR CHEST 1 V 22146 Location: T 18 CHEST X- RAY: AP frontal projection, one view, 10/17/18 CLINICAL HISTORY: Abdominal pain, emergency room presentation COMPARISON EXAMS: None of the chest FINDINGS: Heart, lungs, and mediastinal structures are within normal limits. No pleural based collection or a bnormal air collection. IMPRESSION: No acute finding at 0409 Reported and signed by: Emerald Zambrano M.D. CC: Cheryl Lawton NP Technologist: Scarlet Sauceda ate/Time/By: 10/17/2018 (040) : By: [email or web address] Orig Print D/T: S: 04/2018 (4222) PAGE 1 Signed Repor t POC LACTIC [id number] 04:03:00* Test Item Value Reference Range Interpretation Comments POC LACTIC ACID (test code = POCLAC) 2.37 MMOL/L 0.4-2.2 H Lipid [id number] 07:21:00* Test Item Value Reference Range Interpretation Comments Cholesterol (test code = 2093-3) 244.0 mg/dL <=200.0 H Desirable: < 200.0 mg/dLBorderline: 200 - 240 mg/dLHigh Risk: > 240 mg/dL Triglyceride (test code = 28333724) 990 mg/dL <150 H Normal: < 150.0 mg/dL Borderline: 150-199 mg/dL High: 200-499 mg/dL Very High: >= 500 mg/dL HDL (test code = 2085-9) 31.0 mg/dL See Reference Range Narrative . Increased CHD Risk: < 40.0 mg/dL Decreased CHD Risk: > 60 mg/dL LDL (test code = 03811-1) <100 mg/dL Tr iglyceride value is > 400 mg/dl. Unable to calculate LDL value due to high triglyceride. Lab Interpretation (test code = 91325-6) [facility] [id number] 07:21:00* Test Item Value Reference Range Interpretation Comments Sodium (test code = 2951-2) 138 mmol/L 136-145 Potassium (test code = 2823-3) 4.8 mmol/L 3.5-5.1 Chloride (test code = 2075-0) 103 mmol/L 98-107 CO2 (test code = 88399968) 26 mmol/L 21-31 Glucose (test code = 30523157) 148 mg/dL 70-110 H Calcium (test code = 59270693) 9.4 mg/dL 8.6-10.3 Urea Nitrogen (test code = 52992352) 15.0 mg/dL 7-25 Creatinine (test code = 49064626) 0.9 mg/dL 0.7-1.3 Alkaline Phosphatase (test code = 71020781) 77 U/L 34-104 ALT (test code = 70641986) 79 U/L 7-52 H AST (test code = 32733234) 37 U/L 13-39 Total Protein (test code = 2885-2) 6.8 g/dL 6-8.3 GFR, Estimated (test code = 01682627) >90 >=90 mL/min/1.73 m2 Albumin (test code = 17792-0) 4.5 g/dL 4.2-5.5 Anion Gap (test code = 35649767) 9 mmol/L 5-16 Lab Interpretation (test code = 01496-5) [facility] [id number] 15:50:00* Test Item Value Reference Range Interpretation Comments Hemoglobin A1c (test code = 4548-4) 7.6 % 4.3-6.1 H Estimated Average Glucose (test code = 42535428) 171 mg/dL 70-11 0 H Lab Interpretation (test code = 29790-7) Abnormal [facility] [id number] 13:59:54IMPRESSION: Scattered degenerative change. No osseous erosion Dictated By: Asael Pérez MD, 09/13/2018 1:58 PM I have reviewed the study and agree with the findings in this report. Signed By: Buddy Davies MD, 09/13/2018 1:59 PM Interface, Rad/Mammog In - 09/13/2018 2:05 PM CDTX-RAY LEFT ELBOW - 3 image(s)HISTORY: Left elbow pain for 4 mths COMPARISON: None DISCUSSION:Bone:No acute displaced fracture. No aggressive osseous lesion.Joints:Scattered degenerative change. No osseous erosionNo dislocation.Soft tissues:Appear unremarkable.IMPRESSIONIMPRESSION: Scattered degenerative change. No osseous erosionDictated By: Asael Pérez MD, 09/13 1:58 PMI have reviewed the study and agree with the findings in this repor t.Signed By: Buddy Davies MD, 09/13/2018 1:59 PM[facility]AL [id number] 12:04:34* Test Item Value Reference Range Interpretation Comments RETINAL SCAN-FINAL RESULT (test code = 67714) NORMAL Right Diabetic Retinopathy (test code = 018360) None Right Macular Edema (test code = 94898) None Right Other Suspected Conditions (test code = 37135) None Right Image Quality (test code = 76656) Gradeable Image Left Diabetic Retinopathy (test code = 28293) None Left Macular Edema (test code = 52238) None Left Other Suspected Conditions (test code = 32339) None Left Image Quality (test code = 15690) Gradeable Image VIDA (test code = VIDA) Retinal Study Result for DU CHAUDHARI DEANDRE DEANDRE PHILIPreina 33 y/o, M (: 1985, )presented to [facility] on 09-13-2018 for a retinal imaging study of the left and right eyes. Based on the findings of the study, the following is recommended for Felipe PHILIP Scan: Please advise the patient to return for another scan in 1 year. Interpreting Provider's Comments: No comments provided Right Eye Findings:Normal Result. Negative for Diabetic Retinopathy. Left Eye Findings:Normal Result. Negative for Diabetic Retinopathy. This result was electronically signed by Trev Coreas MD, , Taxonomy: [id number] on 09-13-2018 05:04:34 [facility] time. NOTE: Any pathology noted on this diabetic retinal evaluation should be confirmed by an appropriate ophthalmic examination. [facility] GLUCOSE POC docked [id number] 12:27:00* Test Item Value Reference Range Interpretation Comments Glucose POC (test code = 24126679) 154 mg/dL 74-106 H Lab Interpretation (test code = 16480-9) Abnormal [facility]
--- OUTSIDE RECORDS SUMMARY | 2019-07-05 10:15 | XMS REPORT | Clinical Summary ---
Author Author [facility] ict Organization [facility] ict Address Unknown Phone Unavailable Care Team Providers Care Morgue Attendant Name Role Phone Trung Bradshaw MD PCP [...] MD, 09/13/2018 1:59 PM Performing Organization Address [facility] one Number SMS * Hemoglobin A1C (09/13/2018 11:59 AM CDT) Hemoglobin A1c 7.6 (H) 4.3 - 6.1 % [facility] Estimated 171 (H) 70 - 110 mg/dL [facility] Average Glucose LABORATORY Specimen Blood Performing Organization Address [facility] one Number [facility] [address] [place] [address] * Comprehensive Metabolic Panel (09/13/2018 11:59 AM [...] [facility] Specimen Blood Performing Organization Address [facility] one Number [facility] [address] [place] [address] [phone] * Lipid Profile (09/13/2018 11:59 AM CDT) Pathologist [facility] Cholesterol 244.0 (H) <=200.0 mg/dL [facility] Comment: LABORATORY Desirable: < 200.0 mg/dL [...] high triglyceride. Specimen Blood Performing Organization Address [facility] Ph one Number [facility] [address] [place] [address] * OPHTHALMOLOGY RETINAL SCAN (09/13/2018 11:54 AM [...] y/o, Fred (: 1985, ) presented to [facility] on 09-13-2018 for a retinal imaging study [...] electronically signed Trev Golden MD, , Taxonomy: [id number] on 09-13-2018 05:0 4:34 [facility] time. NOTE: Any pathology noted on this jerzy betic retinal evaluation should be confirmed by an appropriate ophthalmic examination. Performing Organization Address [facility] one Number KENNEDY * POCT GLUCOSE POC docked device (07/26/2018 5:04 PM CDT) Glucose POC 154 (H) 74 - 106 mg/dL [facility] Specimen Blood Performing Organization Address [facility] one Number [facility] [place] [address] [facility] [address] [place] [address] after 07/03/2018 Insurance Type Payer Benefit Subscriber ID Effective Phone Address Plan / Dates Group [facility] xxxxxxx 2019- [address] [employer] [address] [id number] [place], [place] [address] [facility] PLAN FINANCIAL xxxxxxx 2019- [phone] [address] [place] [address] [facility] PLAN FINANCIAL xxxxxxxx 2019- [phone] [id number] [place] [address]
--- OUTSIDE RECORDS SUMMARY | 2019-07-05 10:16 | XMS REPORT ---
Author Author [facility] t Organization [facility] Address [address] [place] [address] Phone Unavailable Care Team Providers Care Market Research Worker Name Role Phone Leeann PEREZ, P Trung PCP Reina BECKWITH Attphys Unavailable Leeann PEREZ, Carina Nihita Attphys Dominga Monaco NP Attphys Payers Payer Name Policy Type Policy Number Effective Date Expiration Date S saqib [place] [employer] [place] [employer] [employer] [id number] [address], [place] [address] xxxxxxx 2019 00:00:00 2020 23:59:59 H [facility] PLANFINANCIAL ASSISTANCE PROGRAMxxx [id number] [place] [address] xxxxxxx 2019 00:00:00 03-12 23:59:59 [facility] Problems Condition Name Condition Details Condition Category Status Onset Date Resolution Date Last Treatment Date Treating Clinician Comments Source Essential hypertension Essential hypertension Disease Active 2017-11-10 00:00:00 [facility] Allergies, Adverse Reactions, Alerts Allergy Name Allergy Type Status Severity Reaction(s) Onset Date Inacti ve Date Treating Clinician Comments Source No Known Allergies DA Active U 2019-04-11 00:00:00 [facility] No Known Allergies DA Active U 2019-03-01 00:00:00 [facility] No Known Allergies DA Active U 2016-03-13 00:00:00 [facility] Social History Social Habit Start Date Stop Date Quantity Comments Source Sex Assigned At [facility] Exposure to SARS-CoV-2 (event) Not sure [facility] Alcohol intake 2018-07-26 00:00:00 2018-07-26 00:00:00 [facility] History SDOH Food Worry 2017-11-10 00:00:00 2017-11-10 00:00:00 1 [facility] SDOH Food Scarcity 2017-11-10 00:00:00 2017-11-10 00:00:00 1 [facility] Alcohol Comment 2017-11-10 00:00:00 2017-11-10 00:00:00 vodka [facility] Smoking Status Start Date Stop Date Source Current every day smoker 2018-07-26 00:00:00 [facility] Medications Ordered Medication Name Filled Medication Name Start Date Stop Da te Current Medication? Ordering Clinician Indication Dosage Frequency Signature (SIG) Comments Components Source atorvastatin (LIPITOR) 20 mg tablet 2018-09-13 00:00:0 0 2019-06-14 00:00:00 No Hyperlipidemia, unspecified hyperlipidemia type 20mg Take 1 tablet by mouth at bedtime nightly. [facility] fenofibrate nanocrystallized (TRICOR) 145 mg tablet 2018-09-13 00:00:00 2019-06-14 00:00:00 No Hypertriglyceridemia 145mg QD Take 1 tablet by mouth daily. [facility] lisinopril (PRINIVIL) 5 mg tablet 2018-09-13 00:00:00 2019 00:00:00 No Essential hypertension 5mg QD Take 1 tablet by mouth park giang [facility] metFORMIN (GLUCOPHAGE) 500 mg tablet 2018-09-13 00:00: 00 2019-06-14 00:00:00 No Type 2 diabetes mellitus wit hout complication, with long-term current use of insulin 500mg Take 1 tablet by vandana th 2 times daily (with meals) For diabetes. [facility] ibuprofen (MOTRIN) 400 mg tablet 2018-09-13 00:00:00 2019-05 00:00:00 No Elbow pain, chronic, left 400mg Take 1 tablet by mouth every 12 hours as needed for Pain (take with food). [facility] tropicamide (MYDRIACYL) 0.5 % ophthalmic solution 2018-09-13 00:00:00 2018-09-13 23:59:00 No Type 2 diabetes ana itus without complication, with long-term current use of insulin 1[drp] Instill 1 Drop in each eye once as needed for up to 1 dose (for poor retina scan image). [facility] metFORMIN (GLUCOPHAGE) 500 mg tablet 2018-09-13 00:00: 00 2018-09-13 00:00:00 No Type 2 diabetes mellitus wit hout complication, with long-term current use of insulin 500mg Take 1 tablet by vandana th 2 times daily (with meals) For diabetes. [facility] atorvastatin (LIPITOR) 20 mg tablet 2018-09-13 00:00:0 0 2018-09-13 00:00:00 No Hyperlipidemia, unspecified hyperlipidemia type 20mg Take 1 tablet by mouth at bedtime nightly. [facility] lisinopril (PRINIVIL) 5 mg tablet 2018-09-13 00:00:00 2018 00:00:00 No Essential hypertension 5mg QD Take 1 tablet by mouth park y. [facility] fenofibrate nanocrystallized (TRICOR) 145 mg tablet 2018-09-13 00:00:00 2018-09-13 00:00:00 No Hypertriglyceridemia 145mg QD Take 1 tablet by mouth daily. [facility] ibuprofen (MOTRIN) 800 mg tablet 2018-07-26 00:00:00 2018-08 00:00:00 No Lateral epicondylitis of left elbow 800mg Take 1 tablet by mouth every 8 hours as needed for Pain. [facility] metFORMIN (GLUCOPHAGE) 500 mg tablet 2017-12-19 00:00: 00 2018-09-13 00:00:00 No Type 2 diabetes mellitus wit hout complication, with long-term current use of insulin 500mg Take 1 tablet by vandana th 2 times daily (with meals) For diabetes. [facility] atorvastatin (LIPITOR) 20 mg tablet 2017-12-19 00:00:0 0 2018-09-13 00:00:00 No Hyperlipidemia, unspecified hyperlipidemia type 20mg Take 1 tablet by mouth at bedtime nightly. [facility] lancets 28 gauge 2017-11-10 00:00:00 Yes Type 2 diabetes mellitus without complication, with long-term current use of insulin 100{each} Use 2 times daily as needed [facility] blood glucose (PRECISION XTRA TEST STRIPS) test strips 2017-11-10 00:00:00 Yes Type 2 diabetes mellitus wit hout complication, with long-term current use of insulin 1{each} Q.5D Check blood glucose 2 times daily [facility] lisinopril (PRINIVIL) 5 mg tablet 2017-11-10 00:00:00 2018 00:00:00 No Essential hypertension 5mg QD Take 1 tablet by mouth park giang [facility] INSULIN SYRINGE 0.5mL 30GX5/16" (MONOJEC T ULTRACOMFORT INSULIN SYR 0.5ML 30GX5/16") syringe-needle 2017-11-10 00:00:00 2018-09-13 00:00:00 No Type 2 diabetes mellitus without complication, with long-term current use of insulin Use to inject medication 5 times daily. Use a new syringe each t marshal. [facility] blood glucose meter 2017-09-23 00:00:00 Yes Newly diagnosed diabetes Use as directed.. [facility] Immunizations Ordered Immunization Name Filled Immunization Name Date Status Comments Source Influenza, Vaccine<FLUCELVAX>(Multi-Dose) 2017-12-19 00:00 :00 Completed [facility] Tdap (Tetanus Toxoid, Reduced Diphtheria Toxoid And Acellular Pertussis, Absorbed) 2017-11-10 00:00:00 Completed [facility] ealt PPV 23 (Pneumococcal Polysaccharide 23 Valent) 2017-10 00:00:00 Completed [facility] Vital Signs Vital Name Observation Time Observation Value Comments Source Heart rate 2018-09-13 11:36:00 98 /min manual radial pulse H [facility] Systolic blood pressure 2018-09-13 10:44:00 130 mm[Hg] [facility] Diastolic blood pressure 2018-09-13 10:44:00 85 mm[Hg] [facility] Body temperature 2018-09-13 10:44:00 36.94 Lizette Rehana is [facility] Respiratory rate 2018-09-13 10:44:00 18 /min Rehana is [facility] Body height 2018-09-13 10:44:00 162.6 cm [facility] Body weight 2018-09-13 10:44:00 109.68 kg [facility] BMI 2018-09-13 10:44:00 41.50 kg/m2 [facility] Oxygen saturation in Arterial blood by Pulse oximetry 07-26 15:25:00 100 /min [facility] Procedures Procedure Date / Time Performed Performing Clinician Sourc e XRAY ELBOW 3 VIEWS MIN 2018-09-13 17:55:46 Trung Bradshaw [facility] LIPID PROFILE 2018-09-13 16:59:00 Trung Bradshaw [facility] HEMOGLOBIN A1C 2018-09-13 16:59:00 [facility] COMPREHENSIVE METABOLIC PANEL 2018-09-13 16:59:00 Trung Bradshaw [facility] OPHTHALMOLOGY RETINAL SCAN 2018-09-13 16:54:[address] [facility] GLUCOSE POC 2018-07-26 22:04:00 Dominga Monaco [facility] Plan of Care Planned Activity Planned Date Details Comments Source [facility] Scheduled Test 2019-11-15 00:00:00 IMM Influenza Seas onal Nov to April (>/= 19 yrs) [code = IMM Influenza Seasonal Nov to April (>/= 19 yrs)] [facility] Scheduled Test 2019-09-14 00:00:00 DM HGBA1C (Yearly) [code = DM HGBA1C (Yearly)] [facility] Scheduled Test 2019-09-14 00:00:00 DM Retinal Exam (Y early) [code = DM Retinal Exam (Yearly)] [facility] Scheduled Test 2018-12-19 00:00:00 DM Foot Exam (Year ly) [code = DM Foot Exam (Yearly)] [facility] Scheduled Test 2018-11-10 00:00:00 DM Microalbumin Ur ine Scrn (Yearly) [code = DM Microalbumin Urine Scrn (Yearly)] [facility] alth Encounters Start Date/Time End Date/Time Encounter Type Admission Type Attendi [facility] Care Department Encounter ID Source 2019-02-17 04:44:00 2019-02-17 00:16:00 Inpatient E [id number] [facility] 2018-11-13 00:00:00 2018-11-13 00:00:00 Outpatient [facility] [id number] [facility] 2018-09-13 12:52:54 2018-09-13 12:52:54 Outpatient [facility] [id number] [facility] 2018-09-13 11:59:42 2018-09-13 11:59:42 Outpatient [facility] [id number] [facility] 2018-09-13 11:50:56 2018-09-13 11:50:56 Outpatient [facility] [id number] [facility] 2018-09-13 10:43:26 2018-09-13 10:43:26 Outpatient [facility] [id number] [facility] 2018-09-13 00:00:00 2018-09-13 00:00:00 Outpatient [facility] [id number] [facility] 2018-07-26 15:23:18 2018-07-26 15:23:18 Outpatient [facility] [id number] [facility] 2018-02-21 00:00:00 2018-02-21 00:00:00 Outpatient [facility] [id number] [facility] 2018-02-09 08:43:51 2018-02-09 08:43:51 Outpatient [facility] [id number] [facility] 2018-01-16 00:00:00 2018-01-16 00:00:00 Outpatient [facility] [id number] [facility] 2017-12-28 00:00:00 2017-12-28 00:00:00 Outpatient [facility] [id number] [facility] 2017-12-19 15:16:04 2017-12-19 15:16:04 Outpatient [facility] [id number] [facility] 2017-12-13 00:00:00 2017-12-13 00:00:00 Outpatient [facility] [id number] [facility] 2017-12-13 00:00:00 2017-12-13 00:00:00 Outpatient [facility] [id number] [facility] 2017-12-13 00:00:00 2017-12-13 00:00:00 Outpatient [facility] [id number] [facility] 2017-11-21 00:00:00 2017-11-21 00:00:00 Outpatient [facility] [id number] [facility] 2017-11-21 00:00:00 2017-11-21 00:00:00 Outpatient [facility] [id number] [facility] 2017-11-10 15:37:03 2017-11-10 15:37:03 Outpatient [facility] [id number] [facility] 2017-11-10 15:32:56 2017-11-10 15:32:56 Outpatient [facility] [id number] [facility] 2017-11-10 13:32:59 2017-11-10 13:32:59 Outpatient [facility] [id number] [facility] 2017-09-23 14:38:25 2017-09-23 14:38:25 Outpatient [facility] [id number] [facility] Results Test Description Test Time Test Comments Results Result Comments Source CT ABDOMEN/PELVIS W 2019-07-04 14:50:00 [place] [address] Patient Name: DEANDRE PHILIP MR #: [id number] : 1985 Age/Sex: 34/M Req #: [id number] Adm Physician: Ordered by: AV BECKWITH MD Report #: [id number] Location: ER Room/Bed: Procedure: [id number] CT/CT ABDOMEN/PELVIS W Exam Date: 07/04/19 Exam [...] BECKWITH MD CHEST SINGLE (PORTABLE) 2019-07-04 13:06:00 [place] [address] Patient Name: DEANDRE PHILIP MR #: [id number] : 1985 Age/Sex: 34/M Req #: [id number] Adm Physician: Ordered by: AV BECKWITH MD Report #: [id number] Location: ER Room/Bed: Procedure: [id number] DX/CHEST SINGLE (PORTABLE) Exam Date: 07/04/19 Exam [...] 223 mg/dL 74-106 H Performed [facility] certified spun [facility] [id number] 06:14:00* Test Item Value Reference Range Interpretation Comments GLUBED (test code = GLUBED) 125 mg/dL 74-106 H Performed by certified spun paste machine operator at [facility] CBC W/AUTO [id number] 02:52:00* Test Item Value Reference Range Interpretation [...] (test code = MDIFF) NO COMPREHENSIVE METABOLIC [id number] 02:25:00* Test Item Value Reference Range Interpretation [...] reference range due to change in reagent. [id number] 02:25:00* Test Item Value Reference Range Interpretation Comments LIPASE (test code = LIP) 546 U/L 73.0-393.0 H [id number] 02:25:00* Test Item Value Reference Range Interpretation Comments MAGNESIUM (test code = MAG) 2.0 mg/dL 1.8-2.4 N [id number] 00:08:00* Test Item Value Reference Range Interpretation Comments GLUBED (test code = GLUBED) 159 mg/dL 74-106 H Performed by certified spun paste machine operator at [facility] [id number] 17:53:00* Test Item Value Reference Range Interpretation Comments GLUBED (test code = GLUBED) 139 mg/dL 74-106 H Performed by certified spun paste machine operator at [facility] [id number] 11:57:00* Test Item Value Reference Range Interpretation Comments GLUBED (test code = GLUBED) 160 mg/dL 74-106 H Performed by certified spun paste machine operator [facility] ACUTE HEPATITIS [id number] 08:09:00* Test Item Value Reference Range Interpretation [...] with a HCV Nucleic Acid Amplification test (261531).Performed At: [facility] [address] [id number] Jadon Carvalho MD Ph:[phone] [id number] 08:07:00* Test Item Value Reference Range Interpretation Comments GLUBED (test code = GLUBED) 166 mg/dL 74-106 H Performed by certified spun paste machine operator [facility] [id number] 05:39:00* Test Item Value Reference Range Interpretation Comments GLUBED (test code = GLUBED) 152 mg/dL 74-106 H Performed by certified spun paste machine operator [facility] COMPREHENSIVE METABOLIC [id number] 03:05:00* Test Item Value Reference Range Interpretation [...] reference range due to change in reagent. [id number] 03:05:00* Test Item Value Reference Range Interpretation Comments LIPASE (test code = LIP) 1815 U/L 73.0-393.0 H [id number] 03:05:00* Test Item Value Reference Range Interpretation Comments MAGNESIUM (test code = MAG) 1.9 mg/dL 1.8-2.4 N CBC W/AUTO [id number] 02:42:00* Test Item Value Reference Range Interpretation [...] DIFF REQUIRED (test code = MDIFF) NO [id number] 00:19:00* Test Item Value Reference Range Interpretation Comments GLUBED (test code = GLUBED) 197 mg/dL 74-106 H Performed by certified spun paste machine operator [facility] [id number] 20:25:00* Test Item Value Reference Range Interpretation Comments GLUBED (test code = GLUBED) 214 mg/dL 74-106 H Performed by certified spun paste machine operator [facility] [id number] 18:18:00* Test Item Value Reference Range Interpretation Comments GLUBED (test code = GLUBED) 234 mg/dL 74-106 H Performed by certified spun paste machine operator at [facility] [id number] 12:02:00* Test Item Value Reference Range Interpretation Comments GLUBED (test code = GLUBED) 215 mg/dL 74-106 H Performed by certified spun paste machine operator at [facility] [id number] 08:01:00* Test Item Value Reference Range Interpretation Comments GLUBED (test code = GLUBED) 203 mg/dL 74-106 H Performed by certified spun paste machine operator at [facility] COMPREHENSIVE METABOLIC [id number] 07:38:00* Test Item Value Reference Range Interpretation [...] This LDL result is a direct measurement.========= [id number] 07:38:00* Test Item Value Reference Range Interpretation Comments LIPASE (test code = LIP) 42916 U/L 73.0-393.0 H THYROID STIMULATING [id number] 07:38:00* Test Item Value Reference Range Interpretation Comments THYROID STIMULATING HORMONE (test code = TSH) 2.460 uIU/mL 0.36-3.7 4 N TSH REFERENCE RANGES: EUTHYROID: 0.35 - 4.3 mIU/mL HYPO : > 5.5 mIU/mL HYPER : < 0.35 mIU/mL [id number] 07:17:00* Test Item Value Reference Range Interpretation Comments GLYCOSYLATED HEMOGLOBIN (HA1C) (test code = GLYHGB) 9.0 % HbA1 SUGGESTED DIAGNOSIS: HbA1C (%) Diabetic >6.4Prediabetes 5.7 - 6.4Normal <5.7 ESTIMATED AVERAGE GLUCOSE (test code = EAG) 212 MG/DL [id number] 07:17:00* Test Item Value Reference Range Interpretation Comments AMMONIA (test code = AMM) 66 umol/L 11-32 H CBC W/AUTO [id number] 07:06:00* Test Item Value Reference Range Interpretation [...] 0.00 K/mm3 0.0-0.1 N - US ABDOMEN [id number] 07:05:00 Name: DEANDRE PHILIP [facility] : 1985 Age/S: 34 / M [address] [facility] Unit #: [id number] Loc: [place] [address] Phys: Kasey Heller MD Acct: [id number] Dis Date: Status: ADM IN PHONE #: [phone] Exam Date: 06/12/2019 0013 FAX #: [phone] Reason: Elevated liapse ,ammonia EXAMS: CPT CODE: [id number] US ABDOMEN COMPLETE 86170 HISTORY: Elevated lipase and pneumonia. COMPARISON: CT [...] Probe: PAGE 1 Signed Report CBC W/AUTO [id number] 06:59:00* Test Item Value Reference Range Interpretation [...] # (test code = BA#) K/mm3 0.0-0.2 [id number] 05:00:00* Test Item Value Reference Range Interpretation Comments GLUBED (test code = GLUBED) 205 mg/dL 74-106 H Performed by certified spun paste machine operator at [facility] [id number] 00:54:00* Test Item Value Reference Range Interpretation Comments GLUBED (test code = GLUBED) 248 mg/dL 74-106 H Performed by certified spun paste machine operator at [facility] [id number] 00:54:00* Test Item Value Reference Range Interpretation Comments GLUBED (test code = GLUBED) 248 mg/dL 74-106 H Performed by certified spun paste machine operator at [facility] [id number] 20:59:00* Test Item Value Reference Range Interpretation Comments GLUBED (test code = GLUBED) 192 mg/dL 74-106 H Performed by certified spun paste machine operator at [facility] [id number] 17:39:00* Test Item Value Reference Range Interpretation Comments GLUBED (test code = GLUBED) 175 mg/dL 74-106 H Performed by certified spun paste machine operator at [facility] [id number] 15:21:00* Test Item Value Reference Range Interpretation Comments AMMONIA (test code = AMM) 120 umol/L 11-32 H [id number] 15:18:00* Test Item Value Reference Range Interpretation Comments PHOSPHORUS (test code = PHOS) 3.7 mg/dL 2.5-4.9 N [id number] 15:18:00* Test Item Value Reference Range Interpretation Comments MAGNESIUM (test code = MAG) 2.1 mg/dL 1.8-2.4 N FOLIC [id number] 15:18:00* Test Item Value Reference Range Interpretation Comments FOLIC ACID (test code = FOL) 19.6 ng/mL 3.10-17.50 H [id number] 14:56:00* Test Item Value Reference Range Interpretation Comments GLUBED (test code = GLUBED) 213 mg/dL 74-106 H Performed by certified spun paste machine operator at [facility] DRUGS OF ABUSE SCREEN [id number] 14:54:00* Test Item Value Reference Range Interpretation [...] code = [place]) NEGATIVE <300 ng/mL PROTHROMBIN [id number] 14:52:00* Test Item Value Reference Range Interpretation [...] (2.5-3.5) IS PATIENT ON ANTICOAGULANTS? NTHROMBOPLASTIN TIME [id number] 14:52:00* Test Item Value Reference Range Interpretation Comments THROMBOPLASTIN TIME PARTIAL (test code = PTT) 34.7 seconds 23.0-37. 0 N IS PATIENT ON ANTICOAGULANTS? NDRUGS OF ABUSE SCREEN [id number] 14:40:00* Test Item Value Reference Range Interpretation [...] 84-246 N ADD ON- CT ABD PELVIS [id number] 10:38:00 Name: DEANDRE PHILIP [facility] : 1985 Age/S: 34 / M [address] [facility] Unit #: [id number] Loc: [place] [address] Phys: Papa Roberts MD Acct: [id number] Dis Date: Status: REG ER PHONE #: [phone] Exam Date: 06/12/2019 0941 FAX #: [phone] Reason: RUQ abdominal pain EXAMS: CPT CODE: [id number] CT ABD PELVIS W/CONT 97293 REASON FOR EXAM: RUQ abdominal pain EXAM [...] PAGE 1 Signed Report ( CONTINUED) Name: DEANRDE PHILIP [facility] : 1985 Age/S: 34 / M [address] U nit #: [id number] Loc: [place] [address] Phys: Papa Roberts MD Acct: [id number] Dis Date: Status: REG ER PHONE #: [phone] Exam Date: 06/12/2019 09 FAX #: [phone] Reason: RUQ abdominal pain EXAMS: CPT CODE: [id number] CT ABD PELVIS W/CONT 94908 <Continued> IMPRESSION: Findings suggest mild pancreatitis involving the head versus duodenitis involving the third and fourth segments of the duodenum. However no duodenal mass is seen and there is no evidence of pancreatic necrosis or fluid collection. Hepatomegaly with hepatic s teatosis. Location: [facility] at 1038 Reported and signed by: Jonathan Chandra MD CC: Papa Roberts MD Technologist:Kat Greene,RT(R),CT CTDI: DLP: Trnscb Date/Time: 06/12/2019 (1038) [email or web address] Orig Print D/T: S: 06/12/2019 (9662) PAGE 2 S igned Report BASIC METABOLIC [id number] 09:36:00* Test Item Value Reference Range Interpretation [...] CA) 9.0 mg/dL 8.5-10.1 N HEPATIC FUNCTION [id number] 09:36:00* Test Item Value Reference Range Interpretation [...] reference range due to change in reagent. [id number] 09:36:00* Test Item Value Reference Range Interpretation Comments LIPASE (test code = LIP) 4321 U/L 73.0-393.0 H [id number] 09:36:00* Test Item Value Reference Range Interpretation Comments TROPONIN-I (test code = TROPI) <0.015 ng/mL 0-0.045 N URINALYSIS [id number] 09:13:00* Test Item Value Reference Range Interpretation [...] #/LPF FEW Urine Source? Clean CatchBASIC METABOLIC [id number] 09:07:00* Test Item Value Reference Range Interpretation [...] CA) 9.0 mg/dL 8.5-10.1 N HEPATIC FUNCTION [id number] 09:07:00* Test Item Value Reference Range Interpretation [...] reference range due to change in reagent. [id number] 09:07:00* Test Item Value Reference Range Interpretation Comments LIPASE (test code = LIP) 4321 U/L 73.0-393.0 H [id number] 09:07:00* Test Item Value Reference Range Interpretation Comments TROPONIN-I (test code = TROPI) <0.015 ng/mL 0-0.045 N CBC W/O [id number] 08:50:00* Test Item Value Reference Range Interpretation [...] MPV) 10.2 fL 6.7-11.0 N CBC W/O [id number] 08:48:00* Test Item Value Reference Range Interpretation [...] VOLUME (test code = MPV) fL 6.7-11.0 [id number] 11:23:00* Test Item Value Reference Range Interpretation Comments GLUBED (test code = GLUBED) 174 mg/dL 74-106 H Performed by certified spun paste machine operator at [facility] [id number] 08:05:00* Test Item Value Reference Range Interpretation Comments GLUBED (test code = GLUBED) 123 mg/dL 74-106 H Performed by certified spun paste machine operator at [facility] BASIC METABOLIC [id number] 07:19:00* Test Item Value Reference Range Interpretation [...] code = CA) 9.0 mg/dL 8.5-10.1 N [id number] 07:19:00* Test Item Value Reference Range Interpretation Comments LIPASE (test code = LIP) 174 U/L 73.0-393.0 N CBC W/AUTO [id number] 06:35:00* Test Item Value Reference Range Interpretation [...] DIFF REQUIRED (test code = MDIFF) NO [id number] 20:15:00* Test Item Value Reference Range Interpretation Comments GLUBED (test code = GLUBED) 193 mg/dL 74-106 H Performed by certified spun paste machine operator at [facility] [id number] 16:09:00* Test Item Value Reference Range Interpretation Comments GLUBED (test code = GLUBED) 149 mg/dL 74-106 H Performed by certified spun paste machine operator at [facility] - US ABDOMEN [id number] 14:18:00 [facility] 1985 Age[facility] 34 / M [address] Unit #: [id number] Loc: [place] [address] Phys: Nehemiah Alba NP Acct: [id number] Dis Date: Status: ADM IN PHONE #: [phone] Exam Date: 04/12/2019 1408 FAX #: [phone] Reason: ABDOMINAL PAIN EXAMS: CPT CODE: [id number] US ABDOMEN LTD 69852 REASON FOR EXAM: ABDOMINAL PAIN EXAM ORDER DATE: 04/12/2019 9:52 AM Attending Britany: Nehemiah Alba NP PROCEDURE: - US ABDOMEN LTD Comparison: CT of the abdomen and pelvis the previous night FINDINGS/ IMPRESSION: Visualized portion of the pancreas appears to be within normal limits. Hepatic parenchyma is hyperechoic which likely represents steatosis. Location: [facility] at 1418 Reported and signed by: Jonathan Chandra MD CC: Nehemiah Alba MANAGER COMPENSATION; Matt Alexandre MD Technologist: ZEN MIRANDA RT(R),RDMS Trnprb Date/Time: 04/12/2019 (1418) t.SDR.RR31 Orig Print D/T: S: 04/12/2019 (8709) Probe: PAGE 1 Signed Report - US ABDOMEN [id number] 14:18:00 [facility] 1985 Age/S: 34 / M [address] Unit #: [id number] Loc: [place] [address] Phys: Michelle Alba MANAGER COMPENSATION Acct: [id number] Di s Date: [id number] Status: DIS IN PHONE #: Exam Date: 04/12/2019 1408 FAX #: Reason: ABDOMINAL PAIN EXAMS: CPT CODE: [id number] US ABDOMEN LTD 17413 REASON FOR EXAM: ABDOMINAL PAIN EXAM ORDER DATE: 04/12/2019 9:52 AM At tending M.D.: Nehemiah Alba NP PROCEDURE: - US ABDOMEN LTD Comparison: CT of the abdomen and pelvis the previous night FINDINGS/ IMPRESSION: Visualized portion of the pancreas appe ars to be within normal limits. Hepatic parenchyma is hyperechoic which likely represents steatosis. Location: [facility] Electro nically Signed by Jonathan Chandra MD on 04/12/2019 at 1418 R eported and signed by: Jonathan Chandra MD CC: Nehemiah Alba; Matt Alexandre MD Technologist: ZEN MIRANDA RT(R),RD MS Trnscb Date/Time: 04/12/2019 (1418) t.SDR.RR31 Orig Print D/T: S: 04/12/2019 (4697) Probe: PAGE 1 Signed Report [id number] 12:45:00* Test Item Value Reference Range Interpretation Comments LIPASE (test code = LIP) 352 U/L 73.0-393.0 N [id number] 11:36:00* Test Item Value Reference Range Interpretation Comments GLUBED (test code = GLUBED) 171 mg/dL 74-106 H Performed by certified spun paste machine operator at [facility] [id number] 10:38:00* Test Item Value Reference Range Interpretation [...] This LDL result is a direct measurement.========= [id number] 10:29:00* Test Item Value Reference Range Interpretation Comments ALCOHOL (test code = ALC) < 3 mg/dL 0.0-3.0 N -- INTERPRETIVE DATA NOTE: POSITIVE SCREENING RESULTS SHOULD BE CONSIDERED PRESUMPTIVE.WHEN COLLECTED FOR MEDICAL PURPOSES ONLY. SPECIMEN WILL NOTBE COLLECTED BY CHAIN OF CUSTODY.IF A CONFIRMATION OF POSITIVE RESULTS IS DESIRED, ACONFIRMATION TEST MUST BE REQUESTED BY THE PHYSICIAN AT ANADDITIONAL CHARGE TO THE PATIENT. [id number] 08:12:00* Test Item Value Reference Range Interpretation Comments GLUBED (test code = GLUBED) 140 mg/dL 74-106 H Performed by certified spun paste machine operator at [facility] COMPREHENSIVE METABOLIC [id number] 07:50:00* Test Item Value Reference Range Interpretation [...] reference range due to change in reagent. [id number] 07:50:00* Test Item Value Reference Range Interpretation Comments PHOSPHORUS (test code = PHOS) 3.8 mg/dL 2.5-4.9 N [id number] 07:50:00* Test Item Value Reference Range Interpretation Comments MAGNESIUM (test code = MAG) 2.0 mg/dL 1.8-2.4 N COMPREHENSIVE METABOLIC [id number] 07:07:00* Test Item Value Reference Range Interpretation [...] reference range due to change in reagent. [id number] 07:07:00* Test Item Value Reference Range Interpretation Comments PHOSPHORUS (test code = PHOS) 3.8 mg/dL 2.5-4.9 N [id number] 07:07:00* Test Item Value Reference Range Interpretation Comments MAGNESIUM (test code = MAG) 2.0 mg/dL 1.8-2.4 N LACTIC DEHYDROGENASE(LDH)2019-04-12 06:54:00* Test Item Value Reference Range Interpretation Comments LACTIC DEHYDROGENASE(LDH) (test code = LDH) 102 IUnit/L 84-246 N [id number] 04:40:00* Test Item Value Reference Range Interpretation Comments TROPONIN-I (test code = TROPI) <0.015 ng/mL 0-0.045 N DRUGS OF ABUSE SCREEN [id number] 02:03:00* Test Item Value Reference Range Interpretation [...] NEGATIVE <300 ng/mL DRUGS OF ABUSE SCREEN [id number] 01:33:00* Test Item Value Reference Range Interpretation [...] code = [place]) <300 ng/mL BASIC METABOLIC [id number] 00:47:00* Test Item Value Reference Range Interpretation [...] CA) 8.4 mg/dL 8.5-10.1 L HEPATIC FUNCTION [id number] 00:47:00* Test Item Value Reference Range Interpretation [...] reference range due to change in reagent. [id number] 00:47:00* Test Item Value Reference Range Interpretation Comments LIPASE (test code = LIP) 552 U/L 73.0-393.0 H [id number] 00:47:00* Test Item Value Reference Range Interpretation Comments TROPONIN-I (test code = TROPI) <0.015 ng/mL 0-0.045 N - CT ABD PELVIS [id number] 23:35:00 Name: DEANDRE PHILIP [facility] : 1985 Age/S: 34 / M [address] [facility] Unit #: [id number] Loc: [place] [address] Phys: Mj Borges MANAGER COMPENSATION Acct: [id number] Dis Date: Status: REG ER PHONE #: [phone] Exam Date: 04/11/2019 2310 FAX #: [phone] Reason: ABD PAIN EXAMS: CPT CODE: [id number] CT ABD PELVIS W/CONT 85780 CT ABDOMEN AND PELVIS ( with intravenous [...] 1 Signed Report (CONTINUED) Name: DEANDRE TRENT [facility] : 1985 A ge/S: 34 / M [address] [facility] Unit #: [id number] Loc : [place] [address] Phys: Mj Borges NP Acct: [id number] Dis Date: Status: REG ER PHONE #: [phone] Exam Date: 04/11/2019 2310 FAX #: [phone] Reason: ABD PAIN EXAMS: CPT CODE: [id number] CT ABD PELVIS W/CONT 95467 <Continued> at 2335 Reported and signed by: Greg Baez M.D. CC: Andres Blanco MD; Mj Borges NP Technologist:DEANDRA YA, RT CTDI: DLP: Trnscb Date/Time: 04/11/2019 (2335) [email or web address] Orig Print D/T: S: 04/11/2019 (2338) PAGE 2 Signed Report - CT ABD PELVIS [id number] 23:35:00 Name: DEANDRE PHILIP [facility] : 1985 Age/S: 34 / M [address] [facility] Unit #: [id number] Loc: [place] [address] Phys: Mj Borges MANAGER COMPENSATION Acct: [id number] Dis Date: 04/13/2019 Status: DIS IN PHONE #: [phone] Exam Date: 04/11/20190 FAX #: [phone] Reason: ABD PAIN EXAMS: CPT CODE: [id number] CT ABD PELVIS W/CONT 72193 CT ABDOMEN AND PELVIS ( with intravenous [...] 1 Signed Report (CONTINUED) Name: DEANDRE PHILIP [facility] : 1985 Age/S: 34 / M [address] [facility] Unit #: [id number] Loc: [place] [address] Phys: Mj Borges MANAGER COMPENSATION Acct: [id number] Dis Date: 04/13/2019 Status: DIS IN PHONE #: [phone] Exam Date: 04/11/2019 2310 FAX #: [phone] Reason: ABD PAIN EXAMS: CPT CODE: [id number] CT ABD PELVIS W/CONT 06443 <Continued> at 2335 Reported and signed by: Greg Baez M.D. CC: Andres Blanco MD; Mj Borges NP Technologist:RT MERVIN CTDI: DLP: Trnscb Date/Time: 04/11/2019 (4697) AlbertoRK5 Orig Print D/T: S: 04/11/2019 (4965) PAGE 2 Signed Report BASIC METABOLIC [id number] 23:12:00* Test Item Value Reference Range Interpretation [...] CA) 8.4 mg/dL 8.5-10.1 L HEPATIC FUNCTION [id number] 23:12:00* Test Item Value Reference Range Interpretation [...] reference range due to change in reagent. [id number] 23:12:00* Test Item Value Reference Range Interpretation Comments LIPASE (test code = LIP) 552 U/L 73.0-393.0 H [id number] 23:12:00* Test Item Value Reference Range Interpretation Comments TROPONIN-I (test code = TROPI) <0.015 ng/mL 0-0.045 N BASIC METABOLIC [id number] 22:55:00* Test Item Value Reference Range Interpretation [...] code = CA) mg/dL 8.5-10.1 HEPATIC FUNCTION [id number] 22:55:00* Test Item Value Reference Range Interpretation [...] TOTAL (test code = ALKP) IUnit/L 45-117 [id number] 22:55:00* Test Item Value Reference Range Interpretation Comments LIPASE (test code = LIP) U/L 73.0-393.0 [id number] 22:55:00* Test Item Value Reference Range Interpretation Comments TROPONIN-I (test code = TROPI) ng/mL 0-0.045 URINALYSIS [id number] 22:51:00* Test Item Value Reference Range Interpretation [...] #/LPF FEW Urine Source? Clean CatchCBC W/O [id number] 22:37:00* Test Item Value Reference Range Interpretation [...] MPV) 10.2 fL 6.7-11.0 N CBC W/O [id number] 22:36:00* Test Item Value Reference Range Interpretation [...] VOLUME (test code = MPV) fL 6.7-11.0 [id number] 08:04:00* Test Item Value Reference Range Interpretation Comments GLUBED (test code = GLUBED) 137 mg/dL 74-106 H Performed by certified spun paste machine operator at [facility] BASIC METABOLIC [id number] 05:15:00* Test Item Value Reference Range Interpretation [...] CA) 9.2 mg/dL 8.5-10.1 N BASIC METABOLIC [id number] 05:10:00* Test Item Value Reference Range Interpretation [...] code = CA) mg/dL 8.5-10.1 CBC W/AUTO [id number] 04:49:00* Test Item Value Reference Range Interpretation [...] code = NRBC#) 0.00 K/mm3 0.0-0.1 N [id number] 21:26:00* Test Item Value Reference Range Interpretation Comments GLUBED (test code = GLUBED) 242 mg/dL 74-106 H Performed by certified spun paste machine operator at [facility] [id number] 16:25:00* Test Item Value Reference Range Interpretation Comments GLUBED (test code = GLUBED) 184 mg/dL 74-106 H Performed by certified spun paste machine operator at [facility] [id number] 11:17:00* Test Item Value Reference Range Interpretation Comments GLUBED (test code = GLUBED) 223 mg/dL 74-106 H Performed by certified spun paste machine operator at [facility] [id number] 07:51:00* Test Item Value Reference Range Interpretation Comments GLUBED (test code = GLUBED) 229 mg/dL 74-106 H Performed by certified spun paste machine operator at [facility] [id number] 21:05:00* Test Item Value Reference Range Interpretation Comments GLUBED (test code = GLUBED) 156 mg/dL 74-106 H Performed by certified spun paste machine operator at [facility] [id number] 18:34:00* Test Item Value Reference Range Interpretation Comments GLUBED (test code = GLUBED) 199 mg/dL 74-106 H Performed by certified spun paste machine operator at [facility] [id number] 18:34:00* Test Item Value Reference Range Interpretation Comments GLUBED (test code = GLUBED) 213 mg/dL 74-106 H Performed by certified spun paste machine operator at [facility] [id number] 08:41:00* Test Item Value Reference Range Interpretation Comments GLUBED (test code = GLUBED) 128 mg/dL 74-106 H Performed by certified spun paste machine operator at [facility] [id number] 21:11:00* Test Item Value Reference Range Interpretation Comments GLUBED (test code = GLUBED) 245 mg/dL 74-106 H Performed by certified spun paste machine operator at [facility] [id number] 16:43:00* Test Item Value Reference Range Interpretation Comments GLUBED (test code = GLUBED) 179 mg/dL 74-106 H Performed by certified spun paste machine operator at [facility] [id number] 12:19:00* Test Item Value Reference Range Interpretation Comments GLUBED (test code = GLUBED) 147 mg/dL 74-106 H Performed by certified spun paste machine operator [facility]ified [facility]~ [id number] 08:25:00* Test Item Value Reference Range Interpretation Comments GLUBED (test code = GLUBED) 138 mg/dL 74-106 H Performed by certified spun paste machine operator [facility]~ ACUTE HEPATITIS [id number] 08:10:00* Test Item Value Reference Range Interpretation [...] with a HCV Nucleic Acid Amplification test (424975).Performed At: [facility] [address] [id number] Jadon Carvalho MD Ph:[phone] [id number] 20:11:00* Test Item Value Reference Range Interpretation Comments GLUBED (test code = GLUBED) 216 mg/dL 74-106 H Performed by certified spun paste machine operator [facility]~ [id number] 16:53:00* Test Item Value Reference Range Interpretation Comments GLUBED (test code = GLUBED) 142 mg/dL 74-106 H Performed by certified spun paste machine operator [facility]~ [id number] 12:02:00* Test Item Value Reference Range Interpretation Comments GLUBED (test code = GLUBED) 210 mg/dL 74-106 H Performed by certified spun paste machine operator at [facility] - US ABDOMEN [id number] 10:41:00 Name: DEANDRE PHILIP [facility] : 1985 Age/S: 34 / M [address] Unit #: [id number] Loc: [place] [address] Phys: Ana Pearl MD Acct: [id number] Dis Date: Status: ADM IN PHONE #: [phone] Exam Date: 03/07/2019 1038 FAX #: [phone] Reason: cirrhosis? EXAMS: CPT CODE: [id number] US ABDOMEN LTD 37725 REASON FOR EXAM: cirrhosis? EXAM ORDER DATE: [...] 1 Signed Report (CONTINUED) Name: DEANDRE PHILIP [facility] : 1985 Age/S: 34 / M [address] [facility] Unit #: [id number] Loc: [place] [address] Phys: Ana Pearl MD Acct: [id number] Dis Date: Status: ADM IN PHONE #: [phone] Exam Date: 03/07/2019 1036 FAX #: [phone] Reason: cirrhosis? EXAMS: CPT CODE: [id number] ABDOMEN LTD 06014 <Continued> IMPRESSION: Hepatomegaly with hepatic steatosis. Prior cholecystectomy. Location: [facility] Electronically Si gned by Jonathan Chandra MD on 03/07/2019 at 1041 Reported an d signed by: Jonathan Chandra MD CC: Shayy Chamberlain MD; Ana Pearl MD Technologist: DONNA LUONG RT(R), SHAN Trnprb Date/Time: 03/07/2019 (104) [id number] Orig Print D/T: S: 03/07/2019 (1044) Probe: PAGE 2 Signed Report HEPATIC FUNCTION [id number] 09:37:00* Test Item Value Reference Range Interpretation [...] reference range due to change in reagent. [id number] 08:23:00* Test Item Value Reference Range Interpretation Comments GLUBED (test code = GLUBED) 105 mg/dL 74-106 N Performed by certified spun paste machine operator at [facility] BASIC METABOLIC [id number] 05:51:00* Test Item Value Reference Range Interpretation [...] CA) 8.9 mg/dL 8.5-10.1 N BASIC METABOLIC [id number] 05:42:00* Test Item Value Reference Range Interpretation [...] code = CA) mg/dL 8.5-10.1 CBC W/AUTO [id number] 05:37:00* Test Item Value Reference Range Interpretation [...] code = NRBC#) 0.00 K/mm3 0.0-0.1 N [id number] 16:28:00* Test Item Value Reference Range Interpretation Comments GLUBED (test code = GLUBED) 184 mg/dL 74-106 H Performed by certified spun paste machine operator at [facility] [id number] 12:36:00* Test Item Value Reference Range Interpretation Comments GLUBED (test code = GLUBED) 261 mg/dL 74-106 H Performed by certified spun paste machine operator at [facility] [id number] 07:26:00* Test Item Value Reference Range Interpretation Comments GLUBED (test code = GLUBED) 194 mg/dL 74-106 H Performed by certified spun paste machine operator at [facility] [id number] 20:23:00* Test Item Value Reference Range Interpretation Comments GLUBED (test code = GLUBED) 266 mg/dL 74-106 H Performed by certified spun paste machine operator at [facility] [id number] 16:23:00* Test Item Value Reference Range Interpretation Comments GLUBED (test code = GLUBED) 292 mg/dL 74-106 H Performed by certified spun paste machine operator at [facility] [id number] 16:23:00* Test Item Value Reference Range Interpretation Comments GLUBED (test code = GLUBED) 302 mg/dL 74-106 H Performed by certified spun paste machine operator at [facility] [id number] 11:24:00* Test Item Value Reference Range Interpretation Comments GLUBED (test code = GLUBED) 218 mg/dL 74-106 H Performed by certified spun paste machine operator at [facility] [id number] 07:51:00* Test Item Value Reference Range Interpretation Comments GLUBED (test code = GLUBED) 158 mg/dL 74-106 H Performed by certified spun paste machine operator at [facility] BASIC METABOLIC [id number] 06:00:00* Test Item Value Reference Range Interpretation [...] CA) 8.9 mg/dL 8.5-10.1 N BASIC METABOLIC [id number] 05:54:00* Test Item Value Reference Range Interpretation [...] code = CA) mg/dL 8.5-10.1 CBC W/AUTO [id number] 05:33:00* Test Item Value Reference Range Interpretation [...] code = NRBC#) 0.00 K/mm3 0.0-0.1 N [id number] 21:10:00* Test Item Value Reference Range Interpretation Comments GLUBED (test code = GLUBED) 283 mg/dL 74-106 H Performed by certified spun paste machine operator at [facility] [id number] 16:52:00* Test Item Value Reference Range Interpretation Comments GLUBED (test code = GLUBED) 197 mg/dL 74-106 H Performed by certified spun paste machine operator at [facility] [id number] 11:42:00* Test Item Value Reference Range Interpretation Comments GLUBED (test code = GLUBED) 187 mg/dL 74-106 H Performed by certified spun paste machine operator at [facility] [id number] 08:01:00* Test Item Value Reference Range Interpretation Comments GLUBED (test code = GLUBED) 88 mg/dL 74-106 N Performed by certified spun paste machine operator at [facility] [id number] 20:51:00* Test Item Value Reference Range Interpretation Comments GLUBED (test code = GLUBED) 267 mg/dL 74-106 H Performed by certified spun paste machine operator at [facility] [id number] 16:28:00* Test Item Value Reference Range Interpretation Comments GLUBED (test code = GLUBED) 234 mg/dL 74-106 H Performed by certified spun paste machine operator at [facility] [id number] 11:54:00* Test Item Value Reference Range Interpretation Comments GLUBED (test code = GLUBED) 157 mg/dL 74-106 H Performed by certified spun paste machine operator at [facility] [id number] 08:23:00* Test Item Value Reference Range Interpretation Comments GLUBED (test code = GLUBED) 144 mg/dL 74-106 H Performed by certified spun paste machine operator at [facility] BASIC METABOLIC [id number] 06:18:00* Test Item Value Reference Range Interpretation [...] CA) 8.2 mg/dL 8.5-10.1 L CBC W/AUTO [id number] 06:13:00* Test Item Value Reference Range Interpretation [...] (test code = MDIFF) NO BASIC METABOLIC [id number] 06:13:00* Test Item Value Reference Range Interpretation [...] CALCIUM (test code = CA) mg/dL 8.5-10.1 [id number] 20:14:00* Test Item Value Reference Range Interpretation Comments GLUBED (test code = GLUBED) 182 mg/dL 74-106 H Performed by certified spun paste machine operator at [facility] [id number] 15:59:00* Test Item Value Reference Range Interpretation Comments GLUBED (test code = GLUBED) 223 mg/dL 74-106 H Performed by certified spun paste machine operator at [facility] [id number] 11:35:00* Test Item Value Reference Range Interpretation Comments GLUBED (test code = GLUBED) 164 mg/dL 74-106 H Performed by certified spun paste machine operator at [facility] [id number] 07:50:00* Test Item Value Reference Range Interpretation Comments GLUBED (test code = GLUBED) 113 mg/dL 74-106 H Performed by certified spun paste machine operator at [facility] BASIC METABOLIC [id number] 05:33:00* Test Item Value Reference Range Interpretation [...] CA) 9.0 mg/dL 8.5-10.1 N CBC W/AUTO [id number] 05:29:00* Test Item Value Reference Range Interpretation [...] code = NRBC#) 0.00 K/mm3 0.0-0.1 N [id number] 20:55:00* Test Item Value Reference Range Interpretation Comments GLUBED (test code = GLUBED) 187 mg/dL 74-106 H Performed by certified spun paste machine operator at [facility] [id number] 16:24:00* Test Item Value Reference Range Interpretation Comments GLUBED (test code = GLUBED) 274 mg/dL 74-106 H Performed by certified spun paste machine operator [facility]~ - DUP AB/PEL/SC [id number] 09:07:00 Name: DEANDRE PHILIP [facility] : 1985 Age/S: 34 / M [address] [facility] Unit #: [id number] Loc: [place] [address] Phys: Cheryl Lawton MANAGER COMPENSATION Acct: [id number] Dis Date: Status: REG ER PHONE #: [phone] Exam Date: 03/01/2019 0840 FAX #: [phone] Reason: SCROTAL PAIN EXAMS: CPT CODE: [id number] DUP AB/PEL/SC COMP 97781 HISTORY: Testicular pain. COMPARISON: None available. Bilateral testicular ultrasound with color and Doppler flow and grayscale imaging. Location: [facility]. Low-resistance arterial Doppler flow with normal spectral [...] 1 Signed Report (CONTINUED) Name: DEANDRE PHILIP [facility] : 1985 Age/S: 34 / M [address] Unit #: [id number] Loc: [place] [address] Phys: Cheryl Lawton MANAGER COMPENSATION Acct: [id number] Dis Date: Status: REG ER PHONE #: [phone] Exam Date: 03/01/2019 0840 FAX #: [phone] Reason: SCROTAL PAIN EXAMS: CPT CODE: [id number] DUP AB/PEL/SC COMP 55630 <Continued> CC: Cheryl Lawton NP Technologist: ZEN MIRANDA RT(R),RDMS Trnscb Date/Time: 03/01/2019 (906) t.SDR.TH4 Orig Print D/T: S: 03/01/2019 (0911) Probe: PAGE 2 Signed Report - US SCROTUM AND [id number] 09:07:00 Name: DEANDRE PHILIP [facility] : 1985 Age/S: 34 / M [address] Unit #: [id number] Loc: [place] [address] Phys: Kely Lawton MANAGER COMPENSATION Acct: [id number] Di s Date: Status: REG ER PHONE #: Exam Date: 03/01/2019 0840 FAX #: Reason: SCROTAL PAIN EXAMS: CPT CODE: [id number] US SCROTUM AND CNTS 46342 HISTORY: Testicular pain. COMPARISON: None available. Bilateral [...] Signed Report (CONTINUED) N jesenia: DEANDRE PHILIP [facility] : 0 1985 Age/S: 34 / M [address] [facility]: [id number] Loc: [place], [place] [address] Phys: Cheryl Lawton MANAGER COMPENSATION Acct: [id number] Dis D ate: Status: REG ER PHONE #: [phone] Exam Date: 03/01/2019 0840 FAX #: [phone] Reason: SCROTAL PAIN EXAMS: CPT CODE: [id number] US SCROTUM AND C NTS 87648 <Continued> CC: Cheryl Lawton NP Technologist: ZEN MIRANDA RT(R),RDMS Trnscb Date/Time: 03/01/2019 (906) [email or web address] Orig Print D/T: S: 03/01/2019 (910) Probe: PAGE 2 Signed Report BASIC METABOLIC [id number] 09:02:00* Test Item Value Reference Range Interpretation [...] CA) 9.2 mg/dL 8.5-10.1 N HEPATIC FUNCTION [id number] 09:02:00* Test Item Value Reference Range Interpretation [...] range due to change in reagent. URINALYSIS [id number] 08:57:00* Test Item Value Reference Range Interpretation [...] #/LPF FEW Urine Source? Clean CatchBASIC METABOLIC [id number] 08:54:00* Test Item Value Reference Range Interpretation [...] code = CA) mg/dL 8.5-10.1 HEPATIC FUNCTION [id number] 08:54:00* Test Item Value Reference Range Interpretation [...] (test code = ALKP) IUnit/L 45-117 URINALYSIS [id number] 08:44:00* Test Item Value Reference Range Interpretation [...] HPF NONE Urine Source? Clean CatchCBC W/O [id number] 08:44:00* Test Item Value Reference Range Interpretation [...] code = MPV) 10.5 fL 6.7-11.0 N [id number] 11:32:00* Test Item Value Reference Range Interpretation Comments GLUBED (test code = GLUBED) 118 mg/dL 74-106 H Performed by certified spun paste machine operator at [facility] [id number] 08:55:00* Test Item Value Reference Range Interpretation Comments GLUBED (test code = GLUBED) 103 mg/dL 74-106 N Performed by certified spun paste machine operator at [facility] [id number] 02:57:00* Test Item Value Reference Range Interpretation Comments LIPASE (test code = LIP) 251 U/L 73.0-393.0 N [id number] 21:04:00* Test Item Value Reference Range Interpretation Comments GLUBED (test code = GLUBED) 163 mg/dL 74-106 H Performed by certified spun paste machine operator at [facility] [id number] 16:08:00* Test Item Value Reference Range Interpretation Comments GLUBED (test code = GLUBED) 124 mg/dL 74-106 H Performed by certified spun paste machine operator at [facility] [id number] 11:39:00* Test Item Value Reference Range Interpretation Comments GLUBED (test code = GLUBED) 113 mg/dL 74-106 H Performed by certified spun paste machine operator at [facility] [id number] 09:57:00* Test Item Value Reference Range Interpretation Comments LIPASE (test code = LIP) 522 U/L 73.0-393.0 H [id number] 07:58:00* Test Item Value Reference Range Interpretation Comments GLUBED (test code = GLUBED) 128 mg/dL 74-106 H Performed by certified spun paste machine operator at [facility] CBC W/AUTO [id number] 03:29:00* Test Item Value Reference Range Interpretation [...] (test code = MDIFF) NO COMPREHENSIVE METABOLIC [id number] 03:13:00* Test Item Value Reference Range Interpretation [...] due to change in reagent. COMPREHENSIVE METABOLIC [id number] 03:07:00* Test Item Value Reference Range Interpretation [...] TOTAL (test code = ALKP) IUnit/L 45-117 [id number] 20:17:00* Test Item Value Reference Range Interpretation Comments GLUBED (test code = GLUBED) 126 mg/dL 74-106 H Performed by certified spun paste machine operator at [facility] [id number] 17:47:00* Test Item Value Reference Range Interpretation Comments GLUBED (test code = GLUBED) 129 mg/dL 74-106 H Performed by certified spun paste machine operator at [facility] LIPID PROFILE (CORONARY RISK)2018-10-17 13:02:00* Test Item [...] LDL result is a direct measurement.========= LACTIC [id number] 12:56:00* Test Item Value Reference Range Interpretation Comments LACTIC ACID (test code = LACT) 1.2 mmol/L 0.4-1.9 N [id number] 12:06:00* Test Item Value Reference Range Interpretation Comments GLUBED (test code = GLUBED) 115 mg/dL 74-106 H Performed by certified spun paste machine operator at [facility] [id number] 11:09:00* Test Item Value Reference Range Interpretation Comments LIPASE (test code = LIP) 727 U/L 73.0-393.0 H [id number] 11:07:00* Test Item Value Reference Range Interpretation Comments GLYCOSYLATED HEMOGLOBIN (HA1C) (test code = GLYHGB) 7.8 % HbA1 4. 8-6.0 H ESTIMATED AVERAGE GLUCOSE (test code = EAG) 177 MG/DL LACTIC [id number] 08:57:00* Test Item Value Reference Range Interpretation Comments LACTIC ACID (test code = LACT) 1.1 mmol/L 0.4-1.9 N [id number] 08:02:00* Test Item Value Reference Range Interpretation Comments GLUBED (test code = GLUBED) 149 mg/dL 74-106 H Performed by certified spun paste machine operator at [facility] - CT ABD PELVIS [id number] 05:22:00 Name: DEANDRE PHILIP [facility] : 1985 Age/S: 33 / M [address] [facility] Unit #: [id number] Loc: [place] [address] Phys: Cheryl Lawton MANAGER COMPENSATION Acct: [id number] Dis Date: Status: REG ER PHONE #: [phone] Exam Date: 10/17/2018 0500 FAX #: [phone] Reason: abdominal pain EXAMS: CPT CODE: [id number] CT ABD PELVIS W/CONT 98618 CT abdomen and pelvis with IV contrast. [...] Signed Rep ort (CONTINUED) Name: DEANDRE PHILIP [facility] : 1985 Age/S: 33 / M [address] [facility] Unit #: [id number] Loc: [place] [address] Phys: Cheryl Lawton NP Acct: [id number] Dis Date: Status: REG ER PHONE #: [phone] Exam Date: 10/17/2018 0500 FAX #: [phone] Reason: abdominal pain EXAMS: CPT CODE: [id number] CT ABD PELVIS W/CONT 72907 <Continued> at 0522 Reported and signed by: Sandee Fowler M.D. CC: Vivienne Madison MD; Cheryl Lawton NP Technologist:RT MERVIN CTDI: DLP: Trnscb Date/Time: 10/17/2018 (521) [email or web address] Orig Print D/T: S: 10/17/2018 (524) PAGE 2 Signed Report [id number] 05:06:00* Test Item Value Reference Range Interpretation Comments TROPONIN-I (test code = TROPI) <0.015 ng/mL 0-0.045 N LACTIC [id number] 04:48:00* Test Item Value Reference Range Interpretation Comments LACTIC ACID (test code = LACT) 1.0 mmol/L 0.4-1.9 N URINALYSIS [id number] 04:46:00* Test Item Value Reference Range Interpretation [...] FEW #/LPF FEW Urine Source? Clean CatchURINALYSIS [id number] 04:45:00* Test Item Value Reference Range Interpretation [...] HPF NONE Urine Source? Clean CatchBASIC METABOLIC [id number] 04:45:00* Test Item Value Reference Range Interpretation [...] CA) 9.4 mg/dL 8.5-10.1 N HEPATIC FUNCTION [id number] 04:45:00* Test Item Value Reference Range Interpretation [...] reference range due to change in reagent. [id number] 04:45:00* Test Item Value Reference Range Interpretation Comments LIPASE (test code = LIP) 834 U/L 73.0-393.0 H BASIC METABOLIC [id number] 04:38:00* Test Item Value Reference Range Interpretation [...] code = CA) mg/dL 8.5-10.1 HEPATIC FUNCTION [id number] 04:38:00* Test Item Value Reference Range Interpretation [...] TOTAL (test code = ALKP) IUnit/L 45-117 [id number] 04:38:00* Test Item Value Reference Range Interpretation Comments LIPASE (test code = LIP) U/L 73.0-393.0 CBC W/O [id number] 04:22:00* Test Item Value Reference Range Interpretation [...] MPV) 9.6 fL 6.7-11.0 N CBC W/O [id number] 04:20:00* Test Item Value Reference Range Interpretation [...] MPV) fL 6.7-11.0 - XR CHEST 1 [id number] 04:09:00 FAX: Cheryl Lawton NP [place]: St: REG Name: DEANDRE SMITH [facility] : [birth year] Age/S: 33/M [address] [facility] Unit #: [id number] Loc: [place] [address] Phys: Cheryl Lawton NP Acct: [id number] Dis Date: Status: REG ER PHONE #: [phone] Exam Date: 10/17/2018 0355 FAX #: [phone] Reason: ABDOMINAL PAIN EXAMS: CPT CODE: [id number] XR CHEST 1 V 72644 Location: T 18 CHEST X- RAY: AP [...] By: [email or web address] Orig Print D/T: S: 04/2018 (1783) PAGE 1 Signed Repor t POC LACTIC [id number] 04:03:00* Test Item Value Reference Range Interpretation Comments POC LACTIC ACID (test code = POCLAC) 2.37 MMOL/L 0.4-2.2 H Lipid [id number] 07:21:00* Test Item Value Reference Range Interpretation Comments Cholesterol (test code = 2093-3) 244.0 mg/dL <=200.0 H Desirable: < 200.0 mg/dLBorderline: 200 - 240 mg/dLHigh Risk: > 240 mg/dL Triglyceride (test code = 22299098) 990 mg/dL <150 H Normal: < 150.0 mg/dL Borderline: 150-199 mg/dL High: 200-499 mg/dL Very High: >= 500 mg/dL HDL (test code = 2085-9) 31.0 mg/dL See Reference Range Narrative . Increased CHD Risk: < 40.0 mg/dL Decreased CHD Risk: > 60 mg/dL LDL (test code = 21938-7) <100 mg/dL Tr iglyceride value is > 400 mg/dl. Unable to calculate LDL value due to high triglyceride. Lab Interpretation (test code = 60614-8) [facility] [id number] 07:21:00* Test Item Value Reference Range Interpretation Comments Sodium (test code = 2951-2) 138 mmol/L 136-145 Potassium (test code = 2823-3) 4.8 mmol/L 3.5-5.1 Chloride (test code = 2075-0) 103 mmol/L 98-107 CO2 (test code = 17357132) 26 mmol/L 21-31 Glucose (test code = 69580636) 148 mg/dL 70-110 H Calcium (test code = 82072870) 9.4 mg/dL 8.6-10.3 Urea Nitrogen (test code = 25158324) 15.0 mg/dL 7-25 Creatinine (test code = 16311877) 0.9 mg/dL 0.7-1.3 Alkaline Phosphatase (test code = 50049895) 77 U/L 34-104 ALT (test code = 57080067) 79 U/L 7-52 H AST (test code = 86119097) 37 U/L 13-39 Total Protein (test code = 2885-2) 6.8 g/dL 6-8.3 GFR, Estimated (test code = 24818706) >90 >=90 mL/min/1.73 m2 Albumin (test code = 56467-3) 4.5 g/dL 4.2-5.5 Anion Gap (test code = 49806745) 9 mmol/L 5-16 Lab Interpretation (test code = 84107-5) [facility] [id number] 15:50:00* Test Item Value Reference Range Interpretation Comments Hemoglobin A1c (test code = 4548-4) 7.6 % 4.3-6.1 H Estimated Average Glucose (test code = 89208552) 171 mg/dL 70-11 0 H Lab Interpretation (test code = 66169-0) Abnormal [facility]WS [id number] 13:59:54IMPRESSION: Scattered degenerative change. No osseous erosion [...] t.Signed By: Buddy Davies MD, 09/13/2018 1:59 PMF[facility] HospitalOPHTHALMOLOGY RETINAL [id number] 12:04:34* Test Item Value Reference Range Interpretation Comments RETINAL SCAN-FINAL RESULT (test code = 83112) NORMAL Right Diabetic Retinopathy (test code = 728301) None Right Macular Edema (test code = 96554) None Right Other Suspected Conditions (test code = 36079) None Right Image Quality (test code = 14707) Gradeable Image Left Diabetic Retinopathy (test code = 10162) None Left Macular Edema (test code = 90961) None Left Other Suspected Conditions (test code = 25687) None Left Image Quality (test code = 88336) Gradeable Image VIDA (test code = VIDA) Retinal Study Result for DU CHAUDHARI DEANDRE DEANDRE PHILIPreina 33 y/o, M (: 1985, )presented to [facility] on 09-13-2018 for a retinal imaging study [...] signed by Trev Coreas MD, , Taxonomy: [id number] on 09-13-2018 05:04:34 [facility] time. NOTE: Any pathology noted on this diabetic retinal evaluation should be confirmed by an appropriate ophthalmic examination. [facility] GLUCOSE POC docked [id number] 12:27:00* Test Item Value Reference Range Interpretation Comments Glucose POC (test code = 21199521) 154 mg/dL 74-106 H Lab Interpretation (test code = 21311-9) Abnormal [facility]
[2019-07-05] MEDS ORDERED: MEROPENEM 500MG/ NS 50ML 50 ML IV SCH (14:00)
[2019-07-05] MEDS: ENOXAPARIN SOD INJ 40 MG/0.4 ML SYR SC SCH (16:40)
--- NOTE | 2019-07-05 18:45 | NUR ---
BEDSIDE SHIFT REPORT GIVEN TO ONCOMING NURSE. PATIENT IS IN STABLE CONDITION, NO ACUTE DISTRESS NOTED AT THIS TIME. CALL LIGHT WITHIN REACH. BED IN THE LOWEST POSITION.
--- NOTE | 2019-07-05 19:05 | NUR ---
patient received awake, alert, lying quietly in bed. no c/o pain noted. ivf continue to infuse without difficulty. pm assessment complete. patient instructed to call for assistance when needed.
[2019-07-05] MEDS: SENNA-S TABLET PO SCH (20:43)
[2019-07-05] MEDS: ATORVASTATIN 20 MG TAB PO SCH (20:43)
--- NOTE | 2019-07-05 20:43 | NUR ---
patient medicated with dilaudid 0.5mg and zofran 4mg ivp for c/o right abd/back pain 08/23 at this time per patients request.
--- NOTE | 2019-07-05 21:09 | Consultation ---
DATE OF CONSULTATION: 07/05/2019 GI Consult note REASON FOR CONSULT: Acute alcoholic pancreatitis. HISTORY OF PRESENT ILLNESS: 34-year-old male with morbid obesity, recurrent alcoholic pancreatitis. Last attack of pancreatitis was about a month ago when he was admitted in [facility]. He drinks alcohol on a regular basis. He got admitted this time with again acute onset of midepigastric pain radiating into back, associated with nausea and vomiting. He drank alcohol a couple of days ago. In the emergency room his lipase level was elevated to 168 (normal in this lab is 8 to 78). CT of the abdomen also showed radiographic pancreatitis. He is currently getting IV fluid, Ringer's lactate, n.p.o., supportive care. He is also being given meropenem antibiotic as well. REVIEW OF SYSTEMS: 12-point system reviewed, symptomatology is limited to GI system. PAST MEDICAL HISTORY: Diabetes, hypertension, alcohol dependence, hyperlipidemia, and recurrent acute pancreatitis. PAST SURGICAL HISTORY: None. FAMILY HISTORY: Hypertension and diabetes runs in the family. Negative for any pancreatitis. 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 SOCIAL HISTORY: Chronic drinker, drinks about 6 packs of beer a day. He is also a chronic smoker. Denies using any illicit drugs. ALLERGIES: NO KNOWN DRUG ALLERGIES. HOME MEDICATIONS: Metformin. Inpatient medication atorvastatin, Ringer's lactate IV fluid, hydromorphone, and insulin lispro. PHYSICAL EXAMINATION: VITAL SIGNS: Temperature 98.1, pulse 98, respirations 17, blood pressure 124/83, and oxygen saturation 99% on room air. GENERAL: Not in any apparent distress. Obese body habitus. Oral mucosa is moist. Tattoos on the extremities. CVS: S1 and S2 regular. LUNGS: Bilaterally grossly clear. ABDOMEN: Obese and soft. Palpable epigastric and right upper quadrant tenderness on deep palpation without rebound, rigidity, or guarding. Positive bowel sounds. EXTREMITIES: Warm. No leg edema. LABORATORY DATA: Sodium 135, potassium 4.0, chloride 100, bicarb 21, BUN 5, creatinine 0.62, and glucose is 192. Liver enzymes showed a total bilirubin of 0.7, AST 29, ALT 36, alkaline phosphatase 104, albumin 3.2. Urine toxicology is positive for opiates. WBC 6.60, hemoglobin 12.2, it has come down from 14.9, hematocrit 37.1, and platelet count 191. CT of the abdomen and pelvis with IV contrast showed acute pancreatitis, most marked in the region of the pancreatic head, neck and proximal body with extension of infiltration and inflammation into peripancreatic region and small bowel mesentery. No definite necrosis. No definite air to suggest abscess formation. No pseudocyst. IMPRESSION: 1. Acute recurrent alcoholic pancreatitis. 2. Alcohol dependence. PLAN: N.p.o., aggressive IV fluid resuscitation with isotonic fluid. Agree to continue Ringer's lactate. The patient does not have any evidence of necrotizing pancreatitis. Therefore, I am taking the liberty to discontinue meropenem. Since the patient is going to be on opioid analgesics, he will develop constipation. Therefore he should be put on scheduled bowel regimen. Since the patient started feeling hungry, therefore we can start him on clear liquid and advance diet as tolerated. I thank Dr. Reed for allowing me to participate in the care of this patient. Philip Ramirez MD SA/EMILY /[id number]
--- NOTE | 2019-07-05 23:45 | Progress Note ---
DATE: 07/05/2019 Medicine Progress Note SUBJECTIVE: The patient is doing well today. GI evaluated the patient. Advanced diet to clear liquids. PHYSICAL EXAMINATION: VITAL SIGNS: Temperature is 98.1, pulse 91, respiratory rate 16, blood pressure 132/80, pulse ox 100% on room air. GENERAL: Not in acute distress. Alert and oriented x3. Cooperative on examination. HEENT: Head; normocephalic, atraumatic. Eyes; pupils are equal, round, and reactive to light bilaterally. Extraocular movements intact bilaterally. Throat; no evidence of erythema or exudates in the posterior pharynx. Has poor dentition. NECK: Supple. Good range of motion. PULMONARY: Clear to auscultation bilaterally. No wheezing, no rales, no rhonchi, no crackles appreciated. CARDIOVASCULAR: Positive S1 and S2. No murmurs, rubs, or gallops appreciated. ABDOMEN: Soft, nondistended, and nontender to palpation. Bowel sounds present. MUSCULOSKELETAL: Strength is 5/5 throughout. SKIN: Intact. Warm to touch. Good cap refill. PSYCHIATRIC: Normal affect and mood. EXTREMITIES: No edema. Good range of motion throughout. LABORATORY DATA: Show white count 6.6, hemoglobin 12, hematocrit 37, platelets of 191. Chemistries reviewed, sodium 135, potassium 4, chloride 100, bicarb 21, anion gap of 18, BUN is 5, creatinine 0.62, and glucose is 177. Hemoglobin A1c 10.7, albumin is 3.2, lipase is 103, much improved. LDL was found to be unable to measure. Triglycerides was 1948. IMPRESSION: 1. Acute pancreatitis secondary to alcohol abuse. 2. Chronic alcohol abuse. 3. Uncontrolled type 2 diabetes. 4. Hyperlipidemia. 5. Hypertension. 6. Metabolic acidosis. PLAN: At this time, he was advanced to clear liquid diet. Pain control IV fluids. Continue with sodium bicarbonate tablets. Get repeat labs in the morning. Advanced his diet accordingly to our regular diet if he improves well. Possibly discharge in the next 1 to 2 days. Continue with insulin for his underlying diabetes. The patient was educated about losing weight, taking care of himself, quit drinking and being very compliant with his medications. He said he verbalized understanding and agrees to plan of care. Jiries S Dahu, MD JSD/SAILAJAL /[id number]
[2019-07-06] VITALS (8 sets, daily range): BP systolic 134–142; BP diastolic 84–94
[2019-07-06] MEDS: ONDANSETRON HCL INJ 2MG/ML 2ML 2 MG/ML VIAL IV PRN ×3 (00:50→09:55)
[2019-07-06] MEDS: HYDROMORPHONE 1MG/1ML INJ IV PRN ×4 (00:50→19:00)
--- NOTE | 2019-07-06 00:50 | NUR ---
patient medicated with dilaudid 0.5mg and zofran 4mg ivp for c/o right abd/back pain 08/23 at this time per patients request.
--- NOTE | 2019-07-06 02:50 | NUR ---
iv to left ac leaking at insertion site. iv d/'c at this time. another iv to be placed after patient showers.
--- NOTE | 2019-07-06 03:30 | NUR ---
new iv #20 gauge placed to right wrist x 1 stick. ivf continue to infuse without difficulty.
--- NOTE | 2019-07-06 05:47 | NUR ---
patient medicated with dilaudid 0.5mg and zofran 4mg ivp for right abd/back pain 07/24 at this time per patients request.
[2019-07-06 06:37] LABS: ANION GAP 14.9 mmol/L (8-16); BLOOD UREA NITROGEN < 5 mg/dL (7-26); CALCIUM 9.5 mg/dL (8.4-10.2); CARBON DIOXIDE 26 mmol/L (22-29); CHLORIDE 99 mmol/L (98-107); CREATININE, SERUM 0.68 mg/dL (0.72-1.25); EST GLOMERULAR FILTRATION RATE > 60 ML/MIN (60-); GLUCOSE 170 mg/dL (74-118); POTASSIUM 3.9 mmol/L (3.5-5.1); SODIUM 136 mmol/L (136-145)
[2019-07-06 06:38] LABS: BUN/CREATININE RATIO 7 (6-25)
--- NOTE | 2019-07-06 06:40 | NUR ---
RECEIVED BEDSIDE SHIFT REPORT FROM OFF GOING NURSE. PATIENT IS RESTING IN BED, NO S/S OF DISTRESS NOTED. CALL LIGHT WITHIN REACH. BED IN THE LOWEST POSITION.
[2019-07-06] MEDS: INSULIN LISPRO 100 UNIT/1 ML 3ML VIAL SQ SCH ×4 (08:17→21:00)
[2019-07-06] MEDS: POLYETHYLENE GLYCOL 3350 17 GM PACK PO SCH (08:20)
[2019-07-06] MEDS: SODIUM BICARBONATE 650 MG TAB PO SCH ×2 (08:20→16:32)
[2019-07-06] MEDS: LOSARTAN POTASSIUM 25 MG TAB PO SCH (08:20)
[2019-07-06] MEDS: LACTATED RINGER'S 1,000 ML INJ SCH ×2 (10:29→22:31)
--- NOTE | 2019-07-06 12:22 | NUR ---
Paged Dr. Ramirez to notify him of patient unable to tolerate GI soft diet. Changed patient to clear liquids at this time.
--- NOTE | 2019-07-06 12:43 | NUR ---
Dr. Ramirez called back, ok to put patient back to clear liquid.
[2019-07-06] MEDS: KETOROLAC TROMETHAMINE 30 MG/ML VIAL IV PRN ×2 (14:05→22:23)
[2019-07-06] MEDS: ENOXAPARIN SOD INJ 40 MG/0.4 ML SYR SC SCH (16:32)
--- NOTE | 2019-07-06 18:52 | NUR ---
Bedside shift report given to oncoming nurse. Patient is resting in bed, no acute distress noted at this time. Call light within reach. Bed in the lowest position.
--- NOTE | 2019-07-06 19:20 | NUR ---
patient received awake, alert, lying quietly in bed. no c/o pain noted at this time. ivf continue to infuse without difficulty. pm assessment complete. patient instructed to call for assistance when needed.
[2019-07-06] MEDS: ATORVASTATIN 20 MG TAB PO SCH (20:19)
[2019-07-06] MEDS: SENNA-S TABLET PO SCH (20:19)
--- NOTE | 2019-07-06 20:34 | Progress Note ---
DATE: 07/06/2019 GI Progress Report SUBJECTIVE: The patient reports worsening of abdominal pain when the diet was advanced to solid food. He is back to clear liquid diet again. REVIEW OF SYSTEMS: GENERAL: No fever or chills, admits to some weakness. CVS: No chest pain or palpitation. RESPIRATORY: No cough or expectoration. MEDICATION: Reviewed as per APR. He is no longer on any meropenem. LABORATORY DATA: Sodium 136, potassium 3.9, chloride 99, bicarb 26, BUN 5, creatinine 0.68, glucose 170. IMPRESSION: 1. Acute alcoholic pancreatitis. 2. Alcohol dependence. PLAN: Continue maintenance IV fluid. Clear liquid diet. Supportive care. Advance the diet as tolerated. Follow him clinically. Philip Raimrez MD SA/MODL /[id number]
--- NOTE | 2019-07-06 22:23 | NUR ---
patient medicated with toradol 30mg ivp for c/o abd pain 5/10 at this time per patients request.
--- NOTE | 2019-07-06 22:55 | Progress Note ---
DATE: 07/06/2019 Medicine Progress Note SUBJECTIVE: The patient was evaluated at approximately 1:40 this afternoon. The patient currently had some vomiting after initiation of soft GI diet. Now he is back to clear liquid diet. PHYSICAL EXAMINATION: VITAL SIGNS: Temperature is 97.6, pulse 79, respiratory rate 20, blood pressure 141/84, and pulse ox 98% on room air. GENERAL: Not in acute distress. Alert and oriented x3. Cooperative on examination. HEENT: Head; normocephalic, atraumatic. Eyes; pupils are equal, round, and reactive to light bilaterally. Extraocular movements intact bilaterally. Throat; no evidence of erythema or exudates in the posterior pharynx. Has poor dentition. SKIN: Intact. Warm to touch. Good cap refill. PSYCHIATRIC: Normal affect and mood. EXTREMITIES: No edema. Good range of motion throughout. LABORATORY FINDINGS: Show white count 6.6, hemoglobin 12, hematocrit is 37, platelets of 191. Chemistry; sodium 136, potassium 3.9, chloride 99, bicarb 26, anion gap of 14, BUN is less than 5, creatinine 0.68, calcium 9.5. Coronavirus PCR not detected. All cultures were found to be negative. No imaging studies. IMPRESSION: 1. Acute pancreatitis secondary to alcohol abuse. 2. Chronic alcohol abuse. 3. Uncontrolled type 2 diabetes. 4. Hyperlipidemia. 5. Hypertension. 6. Metabolic acidosis. PLAN: At this time, he did not tolerate the soft GI diet, which we will go ahead and go back to clear liquid diet. Advance diet as tolerated. Continue with pain control. I will increase the and add Toradol every 6 hours p.r.n. for pain. He is otherwise doing well. He is ambulating with no issues. Continue same plan of care. Get morning labs. MD WILLIAM Resendiz/MODL /[id number]
[2019-07-07] VITALS (8 sets, daily range): BP systolic 113–138; BP diastolic 69–95
[2019-07-07] MEDS: LACTATED RINGER'S 1,000 ML INJ SCH ×2 (01:00→11:48)
[2019-07-07] MEDS: HYDROMORPHONE 1MG/1ML INJ IV PRN ×3 (03:50→20:45)
[2019-07-07] MEDS: ONDANSETRON HCL INJ 2MG/ML 2ML 2 MG/ML VIAL IV PRN ×2 (03:50→20:45)
--- NOTE | 2019-07-07 03:50 | NUR ---
patient medicated with dilaudid 0.5mg and zofran 4mg ivp for c/o abd pain 08/23 at this time per patients request.
[2019-07-07 06:22] LABS: BASOPHILS % 0.6 % (0.0-1.0); EOSINOPHILS # (AUTO) 0.4 (0.0-0.4); EOSINOPHILS % 7.9 % (0.0-6.0); HEMATOCRIT 41.9 % (38.2-49.6); HEMOGLOBIN 13.5 g/dL (14.0-18.0); LYMPHOCYTES # (AUTO) 1.6 (1.0-3.2); LYMPHOCYTES % 32.9 % (18.0-39.1); MEAN CORPUSCULAR HEMOGLOBIN 27.8 pg (28-32); MEAN CORPUSCULAR HGB CONC 32.2 g/dL (31-35); MEAN CORPUSCULAR VOLUME 86.2 fL (81-99); MONOCYTES # (AUTO) 0.4 (0.2-0.8); MONOCYTES % 9.3 % (4.4-11.3); NEUTROPHILS # (AUTO) 2.3 (2.1-6.9); NEUTROPHILS % 48.9 % (38.7-80.0); PLATELET COUNT 248 x10e3/uL (140-360); RED BLOOD COUNT 4.86 x10e6/uL (4.3-5.7); RED CELL DISTRIBUTION WIDTH 13.2 % (11.7-14.4)
[2019-07-07 06:44] LABS: ANION GAP 19.4 mmol/L (8-16); BLOOD UREA NITROGEN 5 mg/dL (7-26); BUN/CREATININE RATIO 7 (6-25); CALCIUM 10.7 mg/dL (8.4-10.2); CARBON DIOXIDE 22 mmol/L (22-29); CHLORIDE 102 mmol/L (98-107); CREATININE, SERUM 0.68 mg/dL (0.72-1.25); EST GLOMERULAR FILTRATION RATE > 60 ML/MIN (60-); GLUCOSE 134 mg/dL (74-118); LIPASE 65 U/L (8-78); POTASSIUM 4.4 mmol/L (3.5-5.1); SODIUM 139 mmol/L (136-145)
[2019-07-07] MEDS: INSULIN LISPRO 100 UNIT/1 ML 3ML VIAL SQ SCH ×4 (07:44→20:41)
[2019-07-07] MEDS: LOSARTAN POTASSIUM 25 MG TAB PO SCH (08:22)
[2019-07-07] MEDS: SODIUM BICARBONATE 650 MG TAB PO SCH ×2 (08:32→16:54)
[2019-07-07] MEDS: POLYETHYLENE GLYCOL 3350 17 GM PACK PO SCH (08:32)
[2019-07-07] MEDS: KETOROLAC TROMETHAMINE 30 MG/ML VIAL IV PRN ×2 (08:33→16:48)
--- NOTE | 2019-07-07 16:23 | Progress Note ---
DATE: 07/07/2019 Medicine Progress Note SUBJECTIVE: The patient reports feeling much better today with no other complaints. We are going to advance his diet to soft GI. PHYSICAL EXAMINATION: VITAL SIGNS: He is afebrile, normotensive, pulse is 84, blood pressure is 113/69, saturating on room air. GENERAL: Not in acute distress. Alert and oriented x3. Cooperative on examination. HEENT: Head; normocephalic, atraumatic. Eyes; pupils are equal, round, and reactive to light bilaterally. Extraocular movements intact bilaterally. Throat; no evidence of erythema or exudates in the posterior pharynx. Has poor dentition. NECK: Supple. Good range of motion. PULMONARY: Clear to auscultation bilaterally. No wheezing, no rales, no rhonchi, no crackles appreciated. CARDIOVASCULAR: Positive S1 and S2. No murmurs, rubs, or gallops appreciated. ABDOMEN: Soft, nondistended, and nontender to palpation. Bowel sounds present. MUSCULOSKELETAL: Strength is 5/5 throughout. No evidence of any muscle deficits on examination. No weakness appreciated. NEUROLOGIC: Cranial nerves 2 through 12 grossly intact. No evidence of any neurological deficits on exam. SKIN: Intact. Warm to touch. Good cap refill. PSYCHIATRIC: Normal affect and mood. EXTREMITIES: No edema. Good range of motion throughout. LABORATORY DATA: Reviewed. CBC stable. Chemistry reviewed, stable. IMPRESSION: 1. Acute pancreatitis secondary to alcohol abuse. 2. Chronic alcoholic. 3. Uncontrolled type 2 diabetes. 4. Hyperlipidemia. 5. Hypertension. 6. Metabolic acidosis. PLAN: At this time, we are going to advance his diet to soft GI. Continue with pain control. IV fluids. Possible discharge tomorrow. MD WILLIAM Resendiz/MODL /[id number]
[2019-07-07] MEDS: ENOXAPARIN SOD INJ 40 MG/0.4 ML SYR SC SCH (16:54)
--- NOTE | 2019-07-07 19:05 | NUR ---
patient received awake, alert, lying quietly in bed. no c/o pain noted. ivf continue to infuse without difficulty. patient instructed to call for assistance when needed.
[2019-07-07] MEDS: SENNA-S TABLET PO SCH (20:40)
[2019-07-07] MEDS: ATORVASTATIN 20 MG TAB PO SCH (20:40)
--- NOTE | 2019-07-07 20:45 | NUR ---
patient medicated with dilaudid 0.5mg and zofran 4mg ivp for c/o abd pain 08/23 at this time per patients request.
[2019-07-08 00:10] VITALS: BP 129/75
[2019-07-08] MEDS: KETOROLAC TROMETHAMINE 30 MG/ML VIAL IV PRN ×2 (01:00→09:18)
--- NOTE | 2019-07-08 01:00 | NUR ---
patient medicated with toradol 30mg ivp for c/o abd pain /10 at this time per patients request.
[2019-07-08 04:39] VITALS: BP 128/96
[2019-07-08] MEDS: HYDROMORPHONE 1MG/1ML INJ IV PRN ×2 (04:45→13:30)
[2019-07-08] MEDS: ONDANSETRON HCL INJ 2MG/ML 2ML 2 MG/ML VIAL IV PRN (04:45)
--- NOTE | 2019-07-08 04:45 | NUR ---
patient medicated with dilaudid 0.5mg and zofran 4mg ivp for c/o abd pain 6/10at this time per patients request.
[2019-07-08] MEDS: SODIUM BICARBONATE 650 MG TAB PO SCH (08:01)
[2019-07-08] MEDS: INSULIN LISPRO 100 UNIT/1 ML 3ML VIAL SQ SCH ×2 (08:01→11:30)
[2019-07-08] MEDS: POLYETHYLENE GLYCOL 3350 17 GM PACK PO SCH (08:01)
[2019-07-08] MEDS: LOSARTAN POTASSIUM 25 MG TAB PO SCH (08:01)
[2019-07-08 08:06] VITALS: BP 134/91
[2019-07-08 08:45] VITALS: BP 134/91
[2019-07-08 12:20] VITALS: BP 129/95
[2019-07-08 15:07] LABS: ANION GAP 13.4 mmol/L (8-16); CALCIUM 10.1 mg/dL (8.4-10.2); CARBON DIOXIDE 29 mmol/L (22-29); CHLORIDE 100 mmol/L (98-107); CREATININE, SERUM 0.77 mg/dL (0.72-1.25); EST GLOMERULAR FILTRATION RATE > 60 ML/MIN (60-); GLUCOSE 256 mg/dL (74-118); POTASSIUM 4.4 mmol/L (3.5-5.1); SODIUM 138 mmol/L (136-145)
[2019-07-08] MEDS ORDERED: TYLENOL WITH C1 EACH PO (15:23)
[2019-07-08 15:35] LABS: BLOOD UREA NITROGEN 7 mg/dL (7-26); BUN/CREATININE RATIO 9 (6-25)
--- NOTE | 2019-07-08 16:02 | NUR ---
patient discharged home, prescription given, not in any distress, iv removed with tip intact, no ss of infiltration, tele box returned, transported via wc to front lobby.
--- NOTE | 2019-07-08 20:38 | Discharge Summary ---
FINAL DISCHARGE DIAGNOSES: 1. Acute alcoholic pancreatitis. 2. Morbidly obese. 3. Type 2 diabetes, uncontrolled. 4. Hyperlipidemia. 5. Hypertension. CONSULTANTS: GI. PHYSICAL EXAMINATION: VITAL SIGNS: Temperature is 97.3, pulse 74, respiratory rate is 20, blood pressure 129/95, and pulse ox 99% on room air. LABORATORY FINDINGS: Show white count 4.7, hemoglobin 13.5, hematocrit is 41, and platelets of 248. Chemistry; sodium 139, potassium 4.4, chloride 102, bicarb 22, BUN 5, creatinine is 0.68, and glucose is 134. Lipase is 65. Urinalysis; 2+ ketones, 2+ glucose. Urine drug screen positive for opioids. Blood gas; pH 7.35, pCO2 of 40, FiO2 21% on room air, and bicarbonate level was 22. Serology; coronavirus PCR was not detected. MICROBIOLOGY: Blood cultures were negative x2 and urine cultures were final, which were negative. IMAGING STUDIES: CT abdomen and pelvis, findings of acute pancreatitis noted in the pancreatic head, neck and proximal body with extension and inflammation noted. No definite necrosis. No definite air to suggest abscess formation. No pseudocyst. Chest x-ray, no acute abnormality noted. HOSPITAL COURSE: A 34-year-old male, morbidly obese, uncontrolled type 2 diabetes, comes into the ED with complaints of epigastric pain, was treated for acute pancreatitis. The patient has a history of chronic alcohol abuse, has a history of alcoholic pancreatitis. While here, the patient was n.p.o., IV fluids, and pain control. The patient was then eventually transitioned to clear liquid diet and then advanced to a soft GI diet. He was able to tolerate that well with no complaints. His lipase levels improved. His pain improved tremendously prior to being discharged to home. His hemoglobin A1c was found to be elevated in which I added Januvia and he will continue with oral metformin for discharge. He was advised to lose some weight, follow up with his PCP for possible insulin regimen at a later date if he does not lose any weight and monitor his diet control. GI was consulted and he was cleared for discharge with no further workup needed. On discharge, the patient was stable, doing well, back to normal baseline, tolerating diet well with no other issues. On the day of discharge, vital signs were stable, labs reviewed and stable. The patient is seen and evaluated and examined thoroughly on the day of discharge, no other complaints. The patient verbalized understanding and agrees to plan of care to follow up accordingly as an outpatient with primary care physician in one week and follow with a GI specialist in 2 weeks' time. MEDICATIONS: See medication reconciliation form. DISPOSITION: Home. CONDITION: Stable. DIET: Heart healthy. In the event of any worsening symptoms, the patient was advised to come back to the ED for further evaluation. Discharge summary took greater than 35 minutes. MD WILLIAM Resendiz/MODL /[id number]
== END 2019-07-08 15:41 | disposition home or self-care (01) | DRG 439 ==
LOC: ER 11:15 → OBSVTOIN 15:34 → ERHOLD 15:34 → MED/SURG3 18:12
PROVIDERS: ADMIT Internal Medicine; ATTEND Internal Medicine
DX: K85.20 Alcohol induced acute pancreatitis without necrosis or infection (principal); E87.2 Acidosis; E66.01 Morbid (severe) obesity due to excess calories; Z68.39 Body mass index [BMI] 39.0-39.9, adult; E11.65 Type 2 diabetes mellitus with hyperglycemia; E78.5 Hyperlipidemia, unspecified; I10 Essential (primary) hypertension; F10.20 Alcohol dependence, uncomplicated
CPT/HCPCS: 36415; 36600; 71045; 74177; 80048; 80053; 80061; 80307; 81001; 82550; 82553; 82805; 82948; 83036; 83605; 83690; 83735; 84443; 84484; 85025; 85610; 85730; 87040; 87086; 87635; 93005; 99284; J1170; J1650; J1885; J2185; J2270; J2405; J2543; J7030; J7121; Q9967

== ENCOUNTER 2019-07-22 07:20 | Inpatient (IN) | payer SELFPAY ==
[~2019-07-22] VITALS: Ht 162.6 cm; Wt 100.2 kg
[2019-07-22] VITALS (8 sets, daily range): BP systolic 131–152; BP diastolic 94–109
[~2019-07-22 07:20] MED LIST: METFORMIN HCL500 MG PO; TYLENOL WITH C1 EACH PO
--- OUTSIDE RECORDS SUMMARY | 2019-07-22 07:22 | XMS REPORT | Clinical Summary ---
Author Author [facility] ict Organization [facility] ict Address Unknown Phone Unavailable Care Team Providers Care Interactive Video Technician Name Role Phone Trung Bradshaw MD PCP [...] Encounters Care Team Description Date Type Specialty Doctor, [facility] 07/16/2019 E-Visit Trung Bradshaw MD Rash and other nonspecific [...] Hypertriglyceridemia 09/13/2018 Office Visit Family Practice Dominga Monaco, TORO Lateral epicondylitis of left elbow (Arianne samia Dx); Type 2 diabetes mellitus without complication, without long-term current use of insulin 07/26/2018 Same Day Family Practice after 07/21/2018 Immunizations Name Administration Dates Next Due Influenza, [...] Travel Start No recent travel history available. Last Filed Vital Signs Reading Time Taken [...] POC Routine 07/26/2018 5:04 PM CDT after 07/21/2018 Results * XRAY ELBOW 3 VIEWS MIN [...] MD, 09/13/2018 1:59 PM Performing Organization Address City/[facility] Ph one Number SMS * Hemoglobin A1C (09/13/2018 11:59 AM CDT) Hemoglobin A1c 7.6 (H) 4.3 - 6.1 % [facility] Estimated 171 (H) 70 - 110 mg/dL [facility] Average Glucose LABORATORY Specimen Blood Performing Organization Address [facility] Ph one Number [facility] [address] [place] [address] * Comprehensive Metabolic Panel (09/13/2018 11:59 AM CDT) Sodium 138 136 - 145 mmol/L [facility] [...] [facility] Specimen Blood Performing Organization Address [facility] Ph one Number [facility] [address] [place] [address] [phone] * Lipid Profile (09/13/2018 11:59 AM CDT) Cholesterol 244.0 (H) <=200.0 mg/dL [facility] [...] high triglyceride. Specimen Blood Performing Organization Address City/State/Zipcode Ph one Number [facility] [address] [place] [address] * OPHTHALMOLOGY RETINAL SCAN (09/13/2018 11:54 AM [...] Narrative Performed At Retinal Study Result for BLAIR PHILIP JOEL, a 33 y/o, M (: 1985, ) presented to [facility] on 09-13-2018 for a retinal imaging study of the left and r ight eyes. Based on the findings of the study, the following is recommended for BLAIR PHILIP Normal Scan: Please advise the patient to return for another scan in 1 year. Interpreting Provider's Comments: No comments provided Right Eye Findings: Normal Result. Negative for Diabetic Retinopathy. Left Eye Findings: Normal Result. Negative for Diabetic Retinopathy. This result was electronically signed Trev Golden MD, , Taxonomy: [id number] on 09-13-2018 05:0 4:34 [facility] time. NOTE: Any pathology noted on this jerzy betic retinal evaluation should be confirmed by an appropriate ophthalmic examination. Performing Organization Address [facility] Ph one Number IRIS * POCT GLUCOSE POC docked device (07/26/2018 5:04 PM CDT) Glucose POC 154 (H) 74 - 106 mg/dL [facility] Specimen Blood Performing Organization Address City[facility] one Number [facility] [place] [address] [phone] [facility] [address] [place] [address] after 07/21/2018 Insurance Type Payer Benefit Subscriber ID Effective Phone Address Plan / Dates Group [place] [employer] [place]- [address] [employer] [id number] [place] [address] [place] [id number] [facility] [employer] xxxxxxx 2019- [phone] [id number] [place] [address] [facility] [employer] xxxxxxxx 2019- [phone] [place] [address]
--- OUTSIDE RECORDS SUMMARY | 2019-07-22 07:23 | XMS REPORT | Continuity of Care Document ---
Author Author [facility] t Organization [facility] t Address [address] [place] [address] Phone Unavailable Care Team Providers Care Manager Culinary Name Role Phone NO, PCP PCP Unavailable Doctor, [facility] Attphys Unavailable Reina BECKWITH Attphys Unavailable Leeann PEREZ, P Trung Attphys Dominga Monaco NP Attphys Payers Payer Name Policy Type Policy Number Effective Date Expiration Date S saqib [place] [employer] [employer] [facility] [employer] [employer] [employer] [id number], [place] [address] xxxxxxx 2019 00:00:00 2020 23:59:59 [facility] PLANFINANCIAL ASSISTANCE PROGRAMxxx [id number] [place] [address] xxxxxxx 2019 00:00:00 03-12 23:59:59 [facility] Problems Condition Name Condition Details Condition Category Status Onset Date Resolution Date Last Treatment Date Treating Clinician Comments Source Essential hypertension Essential hypertension Disease Active 2017-11-10 00:00:00 [facility] Alcohol-induced acute pancreatitis Problem Active [facility] Pancreatitis Problem Active [facility] Allergies, Adverse Reactions, Alerts Allergy Name Allergy Type Status Severity Reaction(s) Onset Date Inacti ve Date Treating Clinician Comments Source No Known Allergies DA Active U 2019-04-11 00:00:00 [facility] No Known Allergies DA Active U 2019-03-01 00:00:00 [facility] No Known Allergies DA Active U 2016-03-13 00:00:00 [facility] Social History Social Habit Start Date Stop Date Quantity Comments Source Sex Assigned At [facility] Alcohol intake 2018-07-26 00:00:00 2018-07-26 00:00:00 On License Of [facility] SDOH Food Worry 2017-11-10 00:00:00 2017-11-10 00:00:00 1 On License Of [facility] SDOH Food Scarcity 2017-11-10 00:00:00 2017-11-10 00:00:00 1 [facility] Alcohol Comment 2017-11-10 00:00:00 2017-11-10 00:00:00 vodka [facility] Smoking Status Start Date Stop Date Source Current every day smoker 2018-07-26 00:00:00 [facility] Medications Ordered Medication Name Filled Medication Name Start Date Stop Da te Current Medication? Ordering Clinician Indication Dosage Frequency Signature (SIG) Comments Components Source atorvastatin (LIPITOR) 20 mg tablet 2018-09-13 00:00:0 0 2019-06-14 00:00:00 No Hyperlipidemia, unspecified hyperlipidemia type 20mg Take 1 tablet by mouth at bedtime nightly. [facility] fenofibrate nanocrystallized (TRICOR) 145 mg tablet 2018-09-13 00:00:00 2019-06-14 00:00:00 No Hypertriglyceridemia 145mg QD Take 1 tablet by mouth daily. [facility] lisinopril (PRINIVIL) 5 mg tablet 2018-09-13 00:00:00 2019 00:00:00 No Essential hypertension 5mg QD Take 1 tablet by mouth park giang [facility] metFORMIN (GLUCOPHAGE) 500 mg tablet 2018-09-13 00:00: 00 2019-06-14 00:00:00 No Type 2 diabetes mellitus wit hout complication, with long-term current use of insulin 500mg Take 1 tablet by vandana th 2 times daily (with meals) For diabetes. [facility] ibuprofen (MOTRIN) 400 mg tablet 2018-09-13 00:00:00 2019-05 00:00:00 No Elbow pain, chronic, left 400mg Take 1 tablet by mouth every 12 hours as needed for Pain (take with food). [facility] tropicamide (MYDRIACYL) 0.5 % ophthalmic solution 2018-09-13 00:00:00 2018-09-13 23:59:00 No Type 2 diabetes ana itus without complication, with long-term current use of insulin 1[drp] Instill 1 Drop in each eye once as needed for up to 1 dose (for poor retina scan image). [facility] metFORMIN (GLUCOPHAGE) 500 mg tablet 2018-09-13 00:00: 00 2018-09-13 00:00:00 No Type 2 diabetes mellitus wit hout complication, with long-term current use of insulin 500mg Take 1 tablet by vandana th 2 times daily (with meals) For diabetes. [facility] atorvastatin (LIPITOR) 20 mg tablet 2018-09-13 00:00:0 0 2018-09-13 00:00:00 No Hyperlipidemia, unspecified hyperlipidemia type 20mg Take 1 tablet by mouth at bedtime nightly. [facility] lisinopril (PRINIVIL) 5 mg tablet 2018-09-13 00:00:00 2018 00:00:00 No Essential hypertension 5mg QD Take 1 tablet by mouth park giang [facility] fenofibrate nanocrystallized (TRICOR) 145 mg tablet 2018-09-13 00:00:00 2018-09-13 00:00:00 No Hypertriglyceridemia 145mg QD Take 1 tablet by mouth daily. [facility] ibuprofen (MOTRIN) 800 mg tablet 2018-07-26 00:00:00 2018-08 00:00:00 No Lateral epicondylitis of left elbow 800mg Take 1 tablet by mouth every 8 hours as needed for Pain. [facility] metFORMIN (GLUCOPHAGE) 500 mg tablet 2017-12-19 00:00: 00 2018-09-13 00:00:00 No Type 2 diabetes mellitus wit hout complication, with long-term current use of insulin 500mg Take 1 tablet by vandana th 2 times daily (with meals) For diabetes. [facility] atorvastatin (LIPITOR) 20 mg tablet 2017-12-19 00:00:0 0 2018-09-13 00:00:00 No Hyperlipidemia, unspecified hyperlipidemia type 20mg Take 1 tablet by mouth at bedtime nightly. [facility] lancets 28 gauge 2017-11-10 00:00:00 Yes Type 2 diabetes mellitus without complication, with long-term current use of insulin 100{each} Use 2 times daily as needed [facility] blood glucose (PRECISION XTRA TEST STRIPS) test strips 2017-11-10 00:00:00 Yes Type 2 diabetes mellitus wit hout complication, with long-term current use of insulin 1{each} Q.5D Check blood glucose 2 times daily [facility] lisinopril (PRINIVIL) 5 mg tablet 2017-11-10 00:00:00 2018 00:00:00 No Essential hypertension 5mg QD Take 1 tablet by mouth park giang [facility] INSULIN SYRINGE 0.5mL 30GX5/16" (MONOJEC T ULTRACOMFORT INSULIN SYR 0.5ML 30GX5/16") syringe-needle 2017-11-10 00:00:00 2018-09-13 00:00:00 No Type 2 diabetes mellitus without complication, with long-term current use of insulin Use to inject medication 5 times daily. Use a new syringe each t marshal. [facility] blood glucose meter 2017-09-23 00:00:00 Yes Newly diagnosed diabetes Use as directed.. [facility] Acetaminophen With Codeine (Tylenol With Codeine #3 Ta blet) 1 Each TABLET Acetaminophen With Codeine (Tylenol With Codeine #3 Tablet) 1 Each TABLET Yes 300 Every 6 Hours as needed for Moderate Wang n (4-6) [facility] Metformin Hcl Metformin Hcl Yes 500 Twice A Day [facility] Immunizations Ordered Immunization Name Filled Immunization Name Date Status Comments Source Influenza, Vaccine<FLUCELVAX>(Multi-Dose) 2017-12-19 00:00 :00 Completed [facility] Tdap (Tetanus Toxoid, Reduced Diphtheria Toxoid And Acellular Pertussis, Absorbed) 2017-11-10 00:00:00 Completed [facility] ealt PPV 23 (Pneumococcal Polysaccharide 23 Valent) 2017-10 00:00:00 Completed [facility] Vital Signs Vital Name Observation Time Observation Value Comments Source Body Temperature 2019-07-08 12:20:00 97.3 [degF] [facility] BMI (Body Mass Index) 2019-07-07 01:08:00 39.5 kg/m2 [facility] Weight 2019-07-04 18:28:00 230 [lb_av] [facility] Heart rate 2018-09-13 11:36:00 98 /min manual radial pulse H [facility] Systolic blood pressure 2018-09-13 10:44:00 130 mm[Hg] [facility] Diastolic blood pressure 2018-09-13 10:44:00 85 mm[Hg] [facility] Body temperature 2018-09-13 10:44:00 36.94 Lizette Rehana is [facility] Respiratory rate 2018-09-13 10:44:00 18 /min Rehana is [facility] Body height 2018-09-13 10:44:00 162.6 cm [facility] Body weight 2018-09-13 10:44:00 109.68 kg [facility] BMI 2018-09-13 10:44:00 41.50 kg/m2 [facility] Oxygen saturation in Arterial blood by Pulse oximetry 07-26 15:25:00 100 /min [facility] Procedures Procedure Date / Time Performed Performing Clinician [facility] Computed tomography of abdomen and pelvis with contrast 00:00:00 [facility] XRAY ELBOW 3 VIEWS MIN 2018-09-13 17:55:46 Trung Bradshaw [facility] LIPID PROFILE 2018-09-13 16:59:00 [facility] 2018-09-13 16:59:00 [facility] COMPREHENSIVE METABOLIC PANEL 2018-09-13 16:59:00 Trung Bradshaw [facility] OPHTHALMOLOGY RETINAL SCAN 2018-09-13 16:54:02 Trung Bradshaw [facility] GLUCOSE POC 2018-07-26 22:04:00 [facility] of Care Planned Activity Planned Date Details Comments Source Future Scheduled Test 2019-11-15 00:00:00 IMM Influenza Seas onal Nov to April (>/= 19 yrs) [code = IMM Influenza Seasonal Nov to April (>/= 19 yrs)] [facility] Scheduled Test 2019-09-14 00:00:00 DM HGBA1C (Yearly) [code = DM HGBA1C (Yearly)] [facility] Scheduled Test 2019-09-14 00:00:00 DM Retinal Exam (Y early) [code = DM Retinal Exam (Yearly)] [facility] Scheduled Test 2018-12-19 00:00:00 DM Foot Exam (Year ly) [code = DM Foot Exam (Yearly)] [facility] Scheduled Test 2018-11-10 00:00:00 DM Microalbumin Ur ine Scrn (Yearly) [code = DM Microalbumin Urine Scrn (Yearly)] [facility] Encounters Start Date/Time End Date/Time Encounter Type Admission Type Attendi [facility] Care Department Encounter ID Source 2019-07-04 15:34:00 2019-07-08 15:41:00 [facility] [id number] 2019-02-17 04:44:00 2019-02-17 00:16:00 Inpatient [id number] 2018-11-13 00:00:00 2018-11-13 00:00:00 Outpatient [facility] [id number] [facility] 2018-09-13 12:52:54 2018-09-13 12:52:54 Outpatient [facility] [id number] [facility] 2018-09-13 11:59:42 2018-09-13 11:59:42 Outpatient [facility] [id number] [facility] 2018-09-13 11:50:56 2018-09-13 11:50:56 Outpatient [facility] [id number] [facility] 2018-09-13 10:43:26 2018-09-13 10:43:26 Outpatient [facility] [id number] [facility] 2018-09-13 00:00:00 2018-09-13 00:00:00 Outpatient [facility] [id number] [facility] 2018-07-26 15:23:18 2018-07-26 15:23:18 Outpatient [facility] [id number] [facility] 2018-02-21 00:00:00 2018-02-21 00:00:00 Outpatient [facility] [id number] [facility] 2018-02-09 08:43:51 2018-02-09 08:43:51 Outpatient [facility] [id number] [facility] 2018-01-16 00:00:00 2018-01-16 00:00:00 Outpatient [facility] [id number] [facility] 2017-12-28 00:00:00 2017-12-28 00:00:00 Outpatient [facility] [id number] [facility] 2017-12-19 15:16:04 2017-12-19 15:16:04 Outpatient [facility] [id number] [facility] 2017-12-13 00:00:00 2017-12-13 00:00:00 Outpatient [facility] [id number] [facility] 2017-12-13 00:00:00 2017-12-13 00:00:00 Outpatient [facility] [id number] [facility] 2017-12-13 00:00:00 2017-12-13 00:00:00 Outpatient [facility] [id number] [facility] 2017-11-21 00:00:00 2017-11-21 00:00:00 Outpatient [facility] [id number] [facility] 2017-11-21 00:00:00 2017-11-21 00:00:00 Outpatient [facility] [id number] [facility] 2017-11-10 15:37:03 2017-11-10 15:37:03 Outpatient [facility] [id number] [facility] 2017-11-10 15:32:56 2017-11-10 15:32:56 Outpatient [facility] [id number] [facility] 2017-11-10 13:32:59 2017-11-10 13:32:59 Outpatient [facility] [id number] [facility] 2017-09-23 14:38:25 2017-09-23 14:38:25 Outpatient [facility] [id number] [facility] Results Test Description Test Time Test Comments Results Result Comments Source Serum or plasma sodium measurement (moles/volume) 2019-07-08 14:34:00 Test Item Sodium Level (test code = 2951-2) 138 136-145 [facility] ([facility]oles/volume)2019-07-08 14:34:00* Test Item Value Reference Range Interpretation Comments Potassium Level (test code = 2823-3) 4.4 3.5-5.1 [facility] chloride measurement (moles/volume)2019-07-08 14:34:00* Test Item Value Reference Range Interpretation Comments Chloride Level (test code = 2075-0) 100 98-107 [facility] carbon dioxide, total measurement (moles/volume)2019-07-08 14:34:00* Test Item Value Reference Range Interpretation Comments Carbon Dioxide Level (test code = 2028-9) 29 22-29 [facility] anion [id number] 14:34:00* Test Item Value Reference Range Interpretation Comments Anion Gap (test code = 73724-6) 13.4 8-16 [facility] urea nitrogen measurement (mass/volume)2019-07-08 14:34:00* Test Item Value Reference Range Interpretation Comments Blood Urea Nitrogen (test code = 3094-0) 7 7-26 [facility] creatinine measurement (mass/volume)2019-07-08 14:34:00* Test Item Value Reference Range Interpretation Comments Creatinine (test code = 2160-0) 0.77 0.72-1.25 [facility] urea nitrogen/creatinine mass [id number] 14:34:00* Test Item Value Reference Range Interpretation Comments BUN/Creatinine Ratio (test code = 3097-3) 9 6-25 [facility] Hospital[facility] filtration rate (GFR) euimhvyoosaep5041-60-11 14:34:00* Test Item Value Reference Range Interpretation Comments Estimat Glomerular Filtration Rate (test code = 042408506) > 60 >60 Ranges were taken from the National Kidney Disease Education Program and the [facility] literature.Reference ranges:60 or greater: Zhcucp32-23 ( for 3 consecutive months): Chronic kidney disease 15 or less: Kidney failureDriscoll Children's HospitalGlucose ukclsvnkftp0436-87-39 14:34:00* Test Item Value Reference Range Interpretation Comments Glucose Level (test code = ALW2770) 256 74-118 [facility] calcium measurement (mass/volume)2019-07-08 14:34:00* Test Item Value Reference Range Interpretation Comments Calcium Level (test code = 76191-6) 10.1 8.4-10.2 [facility] HospitalCapillary blood glucose measurement by glucometer (mass/volume)2019-07-08 07:49:00* Test Item Value Reference Range Interpretation Comments Bedside Glucose (test code = 71794-4) 134 70-120 Meter ID: [id number] Regional [facility] CenterBlood leukocytes automated count (number/volume)2019-07-07 05:30:00* Test Item Value Reference Range Interpretation Comments White Blood Count (test code = 6690-2) 4.71 4.8-10.8 [facility] erythrocytes automated count (number/volume)2019-07-07 05:30:00* Test Item Value Reference Range Interpretation Comments Red Blood Count (test code = 789-8) 4.86 4.3-5.7 [facility] Hospital[facility] hemoglobin measurement (moles/volume)2019-07-07 05:30:00* Test Item Value Reference Range Interpretation Comments Hemoglobin (test code = 64772-1) 13.5 14.0-18.0 [facility] HospitalAutomated blood hematocrit (volume fraction)2019-07-07 05:30:00* Test Item Value Reference Range Interpretation Comments Hematocrit (test code = 4544-3) 41.9 38.2-49.6 [facility] HospitalAutomated erythrocyte mean corpuscular ewvskj3308-95-34 05:30:00* Test Item Value Reference Range Interpretation Comments Mean Corpuscular Volume (test code = 787-2) 86.2 81-99 [facility] HospitalAutomated erythrocyte mean corpuscular hemoglobin (mass per erythrocyte)2019-07-07 05:30:00* Test Item Value Reference Range Interpretation Comments Mean Corpuscular Hemoglobin (test code = 785-6) 27.8 28-32 [facility] HospitalAutomated erythrocyte mean corpuscular hemoglobin concentration measurement (mass/volume)2019-07-07 05:30:00* Test Item Value Reference Range Interpretation Comments Mean Corpuscular Hemoglobin Concent (test code = 786-4) 32.2 31-35 [facility] HospitalRDW RggDt-Sln3665-62-23 05:30:00* Test Item Value Reference Range Interpretation Comments Red Cell Distribution Width (test code = 85860-6) 13.2 11.7 -14.4 [facility] HospitalAutomated blood platelet count (count/volume)2019-07-07 05:30:00* Test Item Value Reference Range Interpretation Comments Platelet Count (test code = 777-3) 248 140-360 [facility] HospitalAutomated blood segmented neutrophil count as percentage of total fceuzpebha6787-00-48 05:30:00* Test Item Value Reference Range Interpretation Comments Neutrophils (%) (Auto) (test code = 57650-5) 48.9 38.7-80.0 [facility] HospitalAutomated blood lymphocyte count as percentage ot total prdxfwyccp2269-03-98 05:30:00* Test Item Value Reference Range Interpretation Comments Lymphocytes (%) (Auto) (test code = 736-9) 32.9 18.0-39.1 [facility] HospitalAutomated blood monocyte count as percentage of total bcmwxupinq0804-30-26 05:30:00* Test Item Value Reference Range Interpretation Comments Monocytes (%) (Auto) (test code = 5905-5) 9.3 4.4-11.3 [facility] HospitalAutomated blood eosinophil count as percentage of total vojshkyzkm7158-97-23 05:30:00* Test Item Value Reference Range Interpretation Comments Eosinophils (%) (Auto) (test code = 713-8) 7.9 0.0-6.0 [facility] HospitalAutomated blood basophil count as percentage of total jqfyeaqpor3026-40-66 05:30:00* Test Item Value Reference Range Interpretation Comments Basophils (%) (Auto) (test code = 706-2) 0.6 0.0-1.0 [facility] HospitalFluoroscopic procedure less than one hour dvnvtppe2276-02-67 05:30:00* Test Item Value Reference Range Interpretation Comments IM GRANULOCYTES % (test code = IM GRANULOCYTES %) 0.4 0.0- 1.0 [facility] Hospital[facility] blood neutrophil count 2019-07-07 05:30:00* Test Item Value Reference Range Interpretation Comments Neutrophils # (Auto) (test code = 751-8) 2.3 2.1-6.9 [facility] HospitalBlood lymphocytes count (number/volume) 2019-07-07 05:30:00* Test Item Value Reference Range Interpretation Comments Lymphocytes # (Auto) (test code = 79707-0) 1.6 1.0-3.2 [facility] HospitalBlood monocytes automated count (number/volume)2019-07-07 05:30:00* Test Item Value Reference Range Interpretation Comments Monocytes # (Auto) (test code = 742-7) 0.4 0.2-0.8 [facility] HospitalAutomated blood eosinophil count 2019-07-07 05:30:00* Test Item Value Reference Range Interpretation Comments Eosinophils # (Auto) (test code = 711-2) 0.4 0.0-0.4 [facility] HospitalAutomated blood basophil count (count/volume)2019-07-07 05:30:00* Test Item Value Reference Range Interpretation Comments Basophils # (Auto) (test code = 704-7) 0.0 0.0-0.1 [facility] HospitalFluoroscopic procedure less than one hour ycppfkwr3646-87-35 05:30:00* Test Item Value Reference Range Interpretation Comments Absolute Immature Granulocyte (auto (laron t code = Absolute Immature Granulocyte (auto) 0.02 0-0.1 [facility] lipase measurement (enzymatic activity/volume)2019-07-07 05:30:00* Test Item Value Reference Range Interpretation Comments Lipase (test code = 3040-3) 65 8-78 [facility] HospitalFluoroscopic procedure less than one hour rkztecnz9841-55-47 05:20:00* Test Item Value Reference Range Interpretation Comments Hemoglobin A1c Percent (test code = Hemoglobin A1c Percent) 10.7 4.0-7.0 [facility] total bilirubin measurement (mass/volume)2019-07-05 05:20:00* Test Item Value Reference Range Interpretation Comments Total Bilirubin (test code = 1975-2) 0.7 0.2-1.2 [facility] HospitalFluoroscopic procedure less than one hour uzibfevs8708-00-46 05:20:00* Test Item Value Reference Range Interpretation Comments Aspartate Amino Transf (AST/SGOT) (test code = Aspartate Amino Transf (AST/SGOT)) 29 5-34 [facility] alanine aminotransferase measurement (enzymatic activity/volume)2019-07-05 05:20:00* Test Item Value Reference Range Interpretation Comments Alanine Aminotransferase (ALT/SGPT) (test code = 1742-6) 36 0-55 [facility] plasma protein measurement (mass/volume)2019-07-05 05:20:00* Test Item Value Reference Range Interpretation Comments Total Protein (test code = 2885-2) 6.3 6.5-8.1 [facility] albumin measurement (mass/volume)2019-07-05 05:20:00* Test Item Value Reference Range Interpretation Comments Albumin (test code = 1751-7) 3.2 3.5-5.0 [facility] HospitalPlasma globulin measurement (mass/volume) 2019-07-05 05:20:00* Test Item Value Reference Range Interpretation Comments Globulin (test code = 73501-5) 3.1 2.3-3.5 [facility] albumin/globulin mass qeeoa8961-82-47 05:20:00* Test Item Value Reference Range Interpretation Comments Albumin/Globulin Ratio (test code = 1759-0) 1.0 0.8-2.0 [facility] plasma alkaline phosphatase measurement (enzymatic activity/volume)2019-07-05 05:20:00* Test Item Value Reference Range Interpretation Comments Alkaline Phosphatase (test code = 6768-6) 104 40-150 [facility] plasma thyrotropin measurement by detection limit <= 0.005 miu/l (units/volume)2019-07-05 05:20:00* Test Item Value Reference Range Interpretation Comments Thyroid Stimulating Hormone (TSH) (test code = 63006-6) 2.097 0.350-4.940 [facility] HospitalFluoroscopic procedure less than one hour [id number] 18:03:00* Test Item Value Reference Range Interpretation Comments Coronavirus (PCR) (test code = Coronavirus (PCR)) NOT DETECTED NOTD ETECTED SARS-COV-2 (COVID19), HIGHRISK, RT-PCRNegative results do not preclude SARS-CoV- 2 infection and should not be used as the sole basis for patient management deci sions. Negative results must be combined with clinical observations, patient his tory, and epidemiological information. Optimum specimen types and timing for pea k viral levels during infections caused by SARS-CoV-2 have not been determined. Collection of multiple specimens ot types of specimens may be necessary to detec t virus. Improper specimen collection and handling, sequence variability under p rimers/probes, or organism present below the limit of detection may lead to fals e negative results. Positive and negative predictive values of testing are highl y dependent on prevalance. False negative test results are more likely when prev alence is high.The expected result is negative (not detected).The SARS-CoV-2 laron t is intended for the qualitative detection of nucleic acid from SARS-CoV-2 in n asopharyngeal and oropharyngeal swab samples from patients who meet COVID-19 cli nical and or epidemiological criteria. For lower respiratory tract specimens, th e assay is submitted for authoriztion by FDA under an Emergency Use Authorizatio n (EUA). Testing methodology is real time RT-PCR. If received as separate collec tion devices, nasopharygeal and oropharyngeal specimens are combined for analysi s. Additional specimens may be split to a separate accession for analysi and rep orting as this test includes a single unit of service.Test results must be corre lated with clinical presentation and evaluated in the context of other laborator y and epidemiologic data. Test performance can be affected because the epidemiol ogy and clinical spectrum of infection caused by SARS-CoV-2 is not fully known. For example, the optimum types of specimens to collect and when during the cours e of infection these specimens are most likely to contain detectable viral RNA m ay not be known.This test has not been Food and Drug Administration (FDA) cleare d or approved and has been authorized by FDA under an Emergency Use Authorizatio n (EUA). The test is only authorized for the duration of the declaration that ci rcumstances exist justifying the authorization of emergency use of in vitro diag nostic tests for detection and/or diagnosis of SARS-CoV-2 under section 564(b) o f the Act, 21 U.S.C. section 360bbb-3(b)(1), unless the authorization is termina obey or revoked sooner. [facility] are certified under the C linical Laboratory Improvement Amendments of 1988 (CLIA), 42 U.S.C. section 263a , to perform high complexity tests.Testing performed by [facility] [address] [phone] Director: Orlando Hope M.D.CLIA # [id number] Children's HospitalUrine color hflnrcsgkygsx4148-15-76 16:11:00* Test Item Value Reference Range Interpretation Comments Urine Color (test code = 5778-6) YELLOW YELLOW [facility] cshadgx2485-78-14 16:11:00* Test Item Value Reference Range Interpretation Comments Urine Clarity (test code = 28578-6) SL CLOUDY CLEAR [facility] Urine by Test strip 2019-07-04 16:11:00* Test Item Value Reference Range Interpretation Comments Urine Specific [place] (test code = 5811-5) 1.020 1.010-1.02 5 [facility] pH measurement by automated test [id number] 16:11:00* Test Item Value Reference Range Interpretation Comments Urine pH (test code = 64842-2) 5 5-7 [facility] leukocyte esterase detection by tatvzxaw6526-44-86 16:11:00* Test Item Value Reference Range Interpretation Comments Urine Leukocyte Esterase (test code = 5799-2) NEGATIVE NEGATIVE [facility] nitrite ksdkjmccv9983-60-86 16:11:00* Test Item Value Reference Range Interpretation Comments Urine Nitrite (test code = 70168-6) NEGATIVE NEGATIVE [facility] protein measurement by test strip (mass/volume)2019-07-04 16:11:00* Test Item Value Reference Range Interpretation Comments Urine Protein (test code = 5804-0) 1+ NEGATIVE [facility] glucose ducoslfou3945-89-63 16:11:00* Test Item Value Reference Range Interpretation Comments Urine Glucose (UA) (test code = 2349-9) 2+ NEGATIVE [facility] ketones detection by automated test zbkps8958-39-39 16:11:00* Test Item Value Reference Range Interpretation Comments Urine Ketones (test code = 02926-4) 2+ NEGATIVE [facility] opiates screening [id number] 16:11:00* Test Item Value Reference Range Interpretation Comments Urine Opiates Screen (test code = 03528-2) POSITIVE NEGATIVE ALL TESTS PERFORMED MANUALLY ON [employer] TOX/SEE TEST This test provides only a sc reen. Positive results should be repeated by a confirmatory test.[facility] HospitalBarbiturates screen, mekdy3910-40-78 16:11:00* Test Item Value Reference Range Interpretation Comments Urine Barbiturates Screen (test code = 255511105) NEGATIVE NEGA TIVE [facility] phencyclidine detection by screening igzfcj5172-65-51 16:11:00* Test Item Value Reference Range Interpretation Comments Urine Phencyclidine Screen (test code = 81035-1) NEGATIVE NEGAT MIGUEL [facility] amphetamines detection by screen method > 1000 ng/vS4232-98-62 16:11:00* Test Item Value Reference Range Interpretation Comments Urine Amphetamines Screen (test code = 33173-3) NEGATIVE NEGATI VE [facility] HospitalFluoroscopic procedure less than one hour znvobgvc6176-18-51 16:11:00* Test Item Value Reference Range Interpretation Comments Urine Methamphetamines Screen (test code = Urine Metha mphetamines Screen) NEGATIVE NEGATIVE [facility] benzodiazepines detection by screening pqjqgf9384-92-79 16:11:00* Test Item Value Reference Range Interpretation Comments Urine Benzodiazepines Screen (test code = 37287-2) NEGATIVE NEG ATIVE [facility] Hospital[facility] cocaine measurement (mass/volume) 2019-07-04 16:11:00* Test Item Value Reference Range Interpretation Comments Urine Cocaine Screen (test code = 3398-5) NEGATIVE NEGATIVE [facility] cannabinoids detection by screening vamglh9620-85-57 16:11:00* Test Item Value Reference Range Interpretation Comments Urine Cannabinoids Screen (test code = 08747-7) NEGATIVE NEGATI VE THESE RESULTS ARE FOR MEDICAL TREATMENT ONLYTHIS REPORT CONTAINS UNCONFIR MED SCREENING RESULTS*POSITIVE RESULTS WILL BE CONFIRMED BY REFERENCE LAB UPON R EQUEST CUT-OFFDRUG CLASS CONCENTRATION ng/mLAmphetamines 1000Methamphetamines 1000Cocaine 300Opiate 300Phencyc lidine 25Cannabinoid 50Barbiturates 300Benzodiazepine 300Methadone 300[facility] HospitalUrine methadone kfcijo0459-03-12 16:11:00* Test Item Value Reference Range Interpretation Comments Urine Methadone Screen (test code = 74520-5) NEGATIVE NEGATIVE THESE RESULTS ARE FOR MEDICAL TREATMENT ONLYTHIS REPORT CONTAINS UNCONFIR MED SCREENING RESULTS*POSITIVE RESULTS WILL BE CONFIRMED BY REFERENCE LAB UPON R EQUEST CUT-OFFDRUG CLASS CONCENTRATION ng/mLAmphetamines 1000Methamphetamines 1000Cocaine Metabolite 300Opiate 300Phencyc lidine 25Cannabinoid 50Barbiturates 300Benzodiazepine 300Methadone 300[facility] HospitalUrine urobilinogen measurement by test strip (mass/volume)2019-07-04 16:11:00* Test Item Value Reference Range Interpretation Comments Urine Urobilinogen (test code = 87490-9) 0.2 0.2-1 [facility] total bilirubin measurement (mass/volume)2019-07-04 16:11:00* Test Item Value Reference Range Interpretation Comments Urine Bilirubin (test code = 1978-6) SMALL NEGATIVE [facility] erythrocytes sbpjltelc4122-45-42 16:11:00* Test Item Value Reference Range Interpretation Comments Urine Blood (test code = 71089-8) NEGATIVE NEGATIVE [facility] HospitalAutomated urine sediment leukocyte count by microscopy (number/high power field)2019-07-04 16:11:00* Test Item Value Reference Range Interpretation Comments Urine WBC (test code = 5821-4) NONE 0-5 [facility] HospitalErythrocytes detection in urine sediment by light ivqmztanly3094-73-12 16:11:00* Test Item Value Reference Range Interpretation Comments Urine RBC (test code = 67011-9) 0-5 0-5 [facility] HospitalBacteria detection in urine sediment by light yrucnmmdwl8427-38-76 16:11:00* Test Item Value Reference Range Interpretation Comments Urine Bacteria (test code = 22543-8) FEW NONE [facility] HospitalEpithelial cells detection in urine sediment by light nxpsjkdwrn4364-11-42 16:11:00* Test Item Value Reference Range Interpretation Comments Urine Epithelial Cells (test code = 16216-8) NONE NONE [facility] HospitalCT ABDOMEN/PELVIS L5889-37-36 14:50:00 [facility] [address] [address] Patient Name: DEANDRE PHILIP MR #: [id number] : 1985 Age/Sex: 34/M Req #: [id number] Adm Physician: Ordered by: AV BECKWITH MD Report #: [id number] Location: ER Room/Bed: Procedure: [id number] CT/CT ABDOMEN/PEL VIS W Exam Date: 07/04/19 Exam Time: 1250 REPORT STATUS: Signed CT of the abdomen and pelvis. Comparison: None Clinical History: Abdominal pain Tech nique: Helical CT scan of the abdomen and pelvis was performed. Intravenous c ontrast administration was utilized. Oral contrast administration was not uti lized. Coronal and sagittal reconstructions were generated from the raw data. Multiple images were submitted for interpretation. This exam was performed according to our departmental dose-optimization program which includes automa obey exposure control, adjustment of the mA and/or kV according to patient size Discussion: Inferior chest: Unremarkable. Liver: Diffuse fatty i nfiltration Spleen: Unremarkable Pancreas: Acute pancreatitis most marked in the region of the pancreatic head neck and proximal body with extension of infiltration and inflammation into the peripancreatic regions and the small ute wel mesentery. No definite necrosis. No definite air to suggest abscess format ion. No pseudocysts. Biliary tree and gallbladder: Post cholecystectomy. Othe rwise unremarkable. Adrenal glands: Unremarkable Kidneys and ureters: Smal l cortical renal cysts to small to characterize. Otherwise unremarkable Vasc ulature: Unremarkable Lymph nodes: Unremarkable Bowel: Unremarkable Pel vis: Urinary bladder is unremarkable. Prostate unremarkable. Seminal vesicles unremarkable. Pelvic wall unremarkable. Peritoneum: No ascites Perineal comp artments: unremarkable. Fluid: As above Bones: Minimal degenerative change s Body wall: Unremarkable Impression: Findings of acute pancreatitis as described above. Signed by: Travis Smith MD on 07/04/2019 2:53 PM Dictated By: TRAVIS SMITH MD 52 Transcribed By: BHAKTI on 07/04/191452 COPY TO: AV BECKWITH MD Arterial blood pH wbudycjborp6352-47-07 13:43:00* Test Item Value Reference Range Interpretation Comments Arterial Blood pH (test code = 2744-1) 7.35 7.35-7.45 [facility] HospitalpCO2 JkjG4786-91-63 13:43:00* Test Item Value Reference Range Interpretation Comments Arterial Blood Partial Pressure CO2 (test code = 2019-8) 40 35-45 [facility] HospitalArterial blood bicarbonate measurement (moles/volume)2019-07-04 13:43:00* Test Item Value Reference Range Interpretation Comments Arterial Blood HCO3 (test code = 1960-4) 22 22-26 [facility] HospitalArterial blood base excess by calculation 2019-07-04 13:43:00* Test Item Value Reference Range Interpretation Comments Arterial Blood Base Excess (test code = 1925-7) -3.0 -2-3 [facility] HospitalFluoroscopic procedure less than one hour gqhbdhqg6464-79-16 13:43:00* Test Item Value Reference Range Interpretation Comments FiO2 (test code = FiO2) 21 [facility] HospitalCHEST SINGLE (PORTABLE)2019-07-04 13:06:00 [facility] [address] [address] Patient Name: DEANDRE PHILIP MR #: [id number] : 1985 Age/Sex: 34/M Req #: [id number] Adm Physician: Ordered by: AV BECKWITH MD Report #: [id number] Location: ER Room/Bed: Procedure: [id number] DX/CHEST SINGLE ( PORTABLE) Exam Date: 07/04/19 Exam Time: 1240 REPORT STATUS: Signed X-ray chest AP p ortable Comparison: None History: Epigastric pain Findings: Apica l lordotic view with slight rotation. Central airways, cardiomediastinal silho uettes, diaphragms or lung garcia, pleural spaces, visualized skeletal structu res and upper abdomen unremarkable for significant malady. Impression: No acute abnormality on this exam. Signed by: Travis Smith MD on 07/04/2019 1:06 PM Dictated By: TRAVIS SMITH MD 1306 Transcribed By: BHAKTI on 07/04/19 1306 CO PY TO: AV BECKWITH MD Prothrombin time (PT) in platelet poor plasma by coagulation yvbyr4300-10-41 11:32:00* Test Item Value Reference Range Interpretation Comments Prothrombin Time (test code = 5902-2) 12.5 11.9-14.5 [facility] HospitalINR in Platelet poor plasma by Coagulation tjkkp3988-88-53 11:32:00* Test Item Value Reference Range Interpretation Comments Prothromb Time International Ratio (test code = 6301-6) 0.88 Oral Anticoagulant Therapy INR Values:1. Low Intensity Therapy 1.5 - 2.02 . Moderate Intensity Therapy 2.0 - 3.03. High Intensity Therapy(1) 2.5 - 3. 54. High Intensity Therapy(2) 3.0 - 4.05. Panic Value INR > 5.0 [facility] HospitalActivated partial thromboplastin time (aPTT) in platelet poor plasma by coagulation nabyc4893-25-32 11:32:00* Test Item Value Reference Range Interpretation Comments Activated Partial Thromboplast Time (test code = 66252-6) 26.8 23.8-35.5 [facility] HospitalFluoroscopic procedure less than one hour ujcnlafi9614-36-59 11:32:00* Test Item Value Reference Range Interpretation Comments Lactic Acid Level (test code = Lactic Acid Level) 1.0 0.5- 2.0 [facility]ere[facility] or plasma magnesium measurement (mass/volume)2019-07-04 11:32:00* Test Item Value Reference Range Interpretation Comments Magnesium Level (test code = 83025-5) 1.6 1.3-2.1 [facility] Centererum or plasma triglyceride measurement (mass/volume)2019-07-04 11:32:00* Test Item Value Reference Range Interpretation Comments Triglycerides Level (test code = 2571-8) 1948 0-149 [facility]ererum or plasma cholesterol measurement (mass/volume)2019-07-04 11:32:00* Test Item Value Reference Range Interpretation Comments Cholesterol Level (test code = 2093-3) 395 0-199 Less than 200 mg/dL Low Kjsl318 - 239 mg/dL Borderline Krnj530 m g/dl and greater High Risk [facility]ererum or plasma cholesterol in HDL measurement (mass/volume) 2019-07-04 11:32:00* Test Item Value Reference Range Interpretation Comments HDL Cholesterol (test code = 2085-9) 25 40-60 [facility] Centererum or plasma total cholesterol/cholesterol in HDL mass wsrzs3773-96-57 11:32:00* Test Item Value Reference Range Interpretation Comments Cholesterol/HDL Ratio (test code = 9830-1) 15.8 3.9-4.7 [facility] Centererum or plasma creatine kinase measurement (enzymatic activity/volume)2019-07-04 11:32:00* Test Item Value Reference Range Interpretation Comments Creatine Kinase (test code = 2157-6) 40 30-200 [facility] Centererum or plasma creatine kinase MB measurement (mass/volume)2019-07-04 11:32:00* Test Item Value Reference Range Interpretation Comments Creatine Kinase MB (test code = 32796-4) 0.60 0-5.0 [facility] HospitalTroponin I measurement by highly sensitive enzyme ysvqtgqnsii1094-63-69 11:32:00* Test Item Value Reference Range Interpretation Comments Troponin I (test code = 98843-9) < 0.001 0-0.300 [facility] HospitalBlood ofpddhs9792-83-49 11:32:00* Test Item Value Reference Range Interpretation Comments Blood Culture (test code = 52730823) NO GROWTH AFTER 72 HOURS [facility] HospitalGLUBED2020-05-01 12:00:00* Test Item Value Reference Range Interpretation Comments GLUBED (test code = GLUBED) 223 mg/dL 74-106 H [facility] [id number] 06:14:00* Test Item Value Reference Range Interpretation Comments GLUBED (test code = GLUBED) 125 mg/dL 74-106 H Performed by certified spiral machine operator at [facility] CBC W/AUTO [id number] 02:52:00* Test Item Value Reference Range Interpretation [...] (test code = MDIFF) NO COMPREHENSIVE METABOLIC [id number] 02:25:00* Test Item Value Reference Range Interpretation [...] reference range due to change in reagent. [id number] 02:25:00* Test Item Value Reference Range Interpretation Comments LIPASE (test code = LIP) 546 U/L 73.0-393.0 H IMZQDNUMM0306-10-63 02:25:00* Test Item Value Reference Range Interpretation Comments MAGNESIUM (test code = MAG) 2.0 mg/dL 1.8-2.4 N BFYVSN3254-53-47 00:08:00* Test Item Value Reference Range Interpretation Comments GLUBED (test code = GLUBED) 159 mg/dL 74-106 H Performed by certified spiral machine operator at [facility] MXDZMZ2593-57-78 17:53:00* Test Item Value Reference Range Interpretation Comments GLUBED (test code = GLUBED) 139 mg/dL 74-106 H Performed by certified spiral machine operator at [facility] RHCSPU9056-16-75 11:57:00* Test Item Value Reference Range Interpretation Comments GLUBED (test code = GLUBED) 160 mg/dL 74-106 H Performed by certified spiral machine operator [facility]~ ACUTE HEPATITIS MLYZG6387-08-65 08:09:00* Test Item Value Reference Range Interpretation [...] with a HCV Nucleic Acid Amplification test (964244).Performed At: [facility] [id number] Jadon Carvalho MD Ph:[phone] WOMBCL4130-42-01 08:07:00* Test Item Value Reference Range Interpretation Comments GLUBED (test code = GLUBED) 166 mg/dL 74-106 H Performed by certified spiral machine operator [facility]~ [id number] 05:39:00* Test Item Value Reference Range Interpretation Comments GLUBED (test code = GLUBED) 152 mg/dL 74-106 H Performed by certified spiral machine operator [facility] COMPREHENSIVE METABOLIC [id number] 03:05:00* Test Item Value Reference Range Interpretation [...] reference range due to change in reagent. [id number] 03:05:00* Test Item Value Reference Range Interpretation Comments LIPASE (test code = LIP) 1815 U/L 73.0-393.0 H FPAANBBLH9915-08-11 03:05:00* Test Item Value Reference Range Interpretation Comments MAGNESIUM (test code = MAG) 1.9 mg/dL 1.8-2.4 N CBC W/AUTO [id number] 02:42:00* Test Item Value Reference Range Interpretation [...] DIFF REQUIRED (test code = MDIFF) NO [id number] 00:19:00* Test Item Value Reference Range Interpretation Comments GLUBED (test code = GLUBED) 197 mg/dL 74-106 H Performed by certified spiral machine operator [facility] [id number] 20:25:00* Test Item Value Reference Range Interpretation Comments GLUBED (test code = GLUBED) 214 mg/dL 74-106 H Performed by certified spiral machine operator [facility] [id number] 18:18:00* Test Item Value Reference Range Interpretation Comments GLUBED (test code = GLUBED) 234 mg/dL 74-106 H Performed by certified spiral machine operator at [facility] [id number] 12:02:00* Test Item Value Reference Range Interpretation Comments GLUBED (test code = GLUBED) 215 mg/dL 74-106 H Performed by certified spiral machine operator at [facility] [id number] 08:01:00* Test Item Value Reference Range Interpretation Comments GLUBED (test code = GLUBED) 203 mg/dL 74-106 H Performed by certified spiral machine operator at [facility] COMPREHENSIVE METABOLIC [id number] 07:38:00* Test Item Value Reference Range Interpretation [...] RELATED TO RISK LEVELS ASRECOMMENDED BY THE EKVIN. HEART, LUNG, AND BLOOD INST. HDL CHOLESTEROL (test code = HDL) 25 mg/dL 40-60 L LIPOPROTEIN LDL (test code = LDL) 82 mg/dL 100-129 L Reference Interval: mg/dL mmol/L Optimal <100 <2.6Near/above optimal 100-129 2.6- 3.3Borderline High 130-159 3.4-4.1High 160-189 4.1-4.9Very High >=190 >=4.9========= This LDL result is a direct measurement.========= COHFMZ0801-30-98 07:38:00* Test Item Value Reference Range Interpretation Comments LIPASE (test code = LIP) 48690 U/L 73.0-393.0 H THYROID STIMULATING [id number] 07:38:00* Test Item Value Reference Range Interpretation Comments THYROID STIMULATING HORMONE (test code = TSH) 2.460 uIU/mL 0.36-3.7 4 N TSH REFERENCE RANGES: EUTHYROID: 0.35 - 4.3 mIU/mL HYPO : > 5.5 mIU/mL HYPER : < 0.35 mIU/mL [id number] 07:17:00* Test Item Value Reference Range Interpretation Comments GLYCOSYLATED HEMOGLOBIN (HA1C) (test code = GLYHGB) 9.0 % HbA1 SUGGESTED DIAGNOSIS: HbA1C (%) Diabetic >6.4Prediabetes 5.7 - 6.4Normal <5.7 ESTIMATED AVERAGE GLUCOSE (test code = EAG) 212 MG/DL [id number] 07:17:00* Test Item Value Reference Range Interpretation Comments AMMONIA (test code = AMM) 66 umol/L 11-32 H CBC W/AUTO [id number] 07:06:00* Test Item Value Reference Range Interpretation [...] 0.00 K/mm3 0.0-0.1 N - US ABDOMEN [id number] 07:05:00 Name: DEANDRE PHILIP [facility] : 1985 Age/S: 34 / M [address] [facility] Unit #: [id number] Loc: DIGNA Isaacs [address] Phys: Kasey Heller MD Acct: [id number] Dis Date: Status: ADM IN PHONE #: [phone] Exam Date: 06/12/2019 0013 FAX #: [phone] Reason: Elevated liapse ,ammonia EXAMS: CPT CODE: [id number] US ABDOMEN COMPLETE 64132 HISTORY: Elevated lipase and pneumonia. COMPARISON: CT [...] KENNEDI RUSH RDMS Trnscb Date/Time: 06/13/2019 (704) [email or web address] Orig Print D/T: S: 06/13/2019 (0708) Probe: PAGE 1 Signed Report CBC W/AUTO [id number] 06:59:00* Test Item Value Reference Range Interpretation [...] # (test code = BA#) K/mm3 0.0-0.2 [id number] 05:00:00* Test Item Value Reference Range Interpretation Comments GLUBED (test code = GLUBED) 205 mg/dL 74-106 H Performed by certified spiral machine operator at [facility] [id number] 00:54:00* Test Item Value Reference Range Interpretation Comments GLUBED (test code = GLUBED) 248 mg/dL 74-106 H Performed by certified spiral machine operator at [facility] [id number] 00:54:00* Test Item Value Reference Range Interpretation Comments GLUBED (test code = GLUBED) 248 mg/dL 74-106 H Performed by certified spiral machine operator at [facility] [id number] 20:59:00* Test Item Value Reference Range Interpretation Comments GLUBED (test code = GLUBED) 192 mg/dL 74-106 H Performed by certified spiral machine operator at [facility] [id number] 17:39:00* Test Item Value Reference Range Interpretation Comments GLUBED (test code = GLUBED) 175 mg/dL 74-106 H Performed by certified spiral machine operator at [facility] [id number] 15:21:00* Test Item Value Reference Range Interpretation Comments AMMONIA (test code = AMM) 120 umol/L 11-32 H [id number] 15:18:00* Test Item Value Reference Range Interpretation Comments PHOSPHORUS (test code = PHOS) 3.7 mg/dL 2.5-4.9 N [id number] 15:18:00* Test Item Value Reference Range Interpretation Comments MAGNESIUM (test code = MAG) 2.1 mg/dL 1.8-2.4 N FOLIC [id number] 15:18:00* Test Item Value Reference Range Interpretation Comments FOLIC ACID (test code = FOL) 19.6 ng/mL 3.10-17.50 H [id number] 14:56:00* Test Item Value Reference Range Interpretation Comments GLUBED (test code = GLUBED) 213 mg/dL 74-106 H Performed by certified spiral machine operator at [facility] DRUGS OF ABUSE SCREEN [id number] 14:54:00* Test Item Value Reference Range Interpretation [...] code = [place]) NEGATIVE <300 ng/mL PROTHROMBIN [id number] 14:52:00* Test Item Value Reference Range Interpretation [...] (2.5-3.5) IS PATIENT ON ANTICOAGULANTS? NTHROMBOPLASTIN TIME [id number] 14:52:00* Test Item Value Reference Range Interpretation Comments THROMBOPLASTIN TIME PARTIAL (test code = PTT) 34.7 seconds 23.0-37. 0 N IS PATIENT ON ANTICOAGULANTS? NDRUGS OF ABUSE SCREEN [id number] 14:40:00* Test Item Value Reference Range Interpretation [...] 84-246 N ADD ON- CT ABD PELVIS W/OZYA7716-12-07 10:38:00 Name: DEANDRE PHILIP [facility] : 1985 Age/S: 34 / M [address] [facility] Unit #: [id number] Loc: DIGNA Isaacs [address] Phys: Papa Roberts MD Acct: [id number] Dis Date: Status: REG ER PHONE #: [phone] Exam Date: 06/12/2019 0941 FAX #: [phone] Reason: RUQ abdominal pain EXAMS: CPT CODE: [id number] CT ABD PELVIS W/CONT 04296 REASON FOR EXAM: RUQ abdominal pain EXAM [...] Signed Report ( CONTINUED) Name: DEANDRE PHILIP : 1985 Age/S: 34 / M Mariza Verdin nit #: [id number] Loc: DIGNA Isaacs [address] Phys: Papa Roberts MD Acct: [id number] Dis Date: Status: REG ER PHONE #: [phone] Exam Date: 06/12/2019 0941 FAX #: [phone] Reason: RUQ abdominal pain EXAMS: CPT CODE: [id number] CT ABD PELVIS W/CONT 44509 <Continued> IMPRESSION: Findings suggest mild pancreatitis involving the head versus duodenitis involving the third and fourth segments of the duodenum. However no duodenal mass is seen and there is no evidence of pancreatic necrosis or fluid collection. Hepatomegaly with hepatic s teatosis. Location: [facility] at 1038 Reported and signed by: Jonathan Chandra MD CC: Papa Roberts MD Technologist:Kat Greene,RT(R),CT CTDI: DLP: Trnscb Date/Time: 06/12/2019 (1038) t.MARIBELR.RR31 Orig Print D/T: S: 06/12/2019 (1041) PAGE 2 S igned Report BASIC METABOLIC [id number] 09:36:00* Test Item Value Reference Range Interpretation [...] CA) 9.0 mg/dL 8.5-10.1 N HEPATIC FUNCTION [id number] 09:36:00* Test Item Value Reference Range Interpretation [...] reference range due to change in reagent. [id number] 09:36:00* Test Item Value Reference Range Interpretation Comments LIPASE (test code = LIP) 4321 U/L 73.0-393.0 H [id number] 09:36:00* Test Item Value Reference Range Interpretation Comments TROPONIN-I (test code = TROPI) <0.015 ng/mL 0-0.045 N URINALYSIS [id number] 09:13:00* Test Item Value Reference Range Interpretation [...] NEGATIVE UA NITRITE DIPSTICK (test code = NSISA) NEGATIVE NEGATIVE UA LEUKOCYTE ESTERASE W REFLEX [...] #/LPF FEW Urine Source? Clean CatchBASIC METABOLIC [id number] 09:07:00* Test Item Value Reference Range Interpretation [...] CA) 9.0 mg/dL 8.5-10.1 N HEPATIC FUNCTION [id number] 09:07:00* Test Item Value Reference Range Interpretation [...] reference range due to change in reagent. [id number] 09:07:00* Test Item Value Reference Range Interpretation Comments LIPASE (test code = LIP) 4321 U/L 73.0-393.0 H [id number] 09:07:00* Test Item Value Reference Range Interpretation Comments TROPONIN-I (test code = TROPI) <0.015 ng/mL 0-0.045 N CBC W/O [id number] 08:50:00* Test Item Value Reference Range Interpretation [...] MPV) 10.2 fL 6.7-11.0 N CBC W/O [id number] 08:48:00* Test Item Value Reference Range Interpretation [...] VOLUME (test code = MPV) fL 6.7-11.0 [id number] 11:23:00* Test Item Value Reference Range Interpretation Comments GLUBED (test code = GLUBED) 174 mg/dL 74-106 H Performed by certified spiral machine operator at [facility] [id number] 08:05:00* Test Item Value Reference Range Interpretation Comments GLUBED (test code = GLUBED) 123 mg/dL 74-106 H Performed by certified spiral machine operator at [facility] BASIC METABOLIC [id number] 07:19:00* Test Item Value Reference Range Interpretation [...] code = CA) 9.0 mg/dL 8.5-10.1 N [id number] 07:19:00* Test Item Value Reference Range Interpretation Comments LIPASE (test code = LIP) 174 U/L 73.0-393.0 N CBC W/AUTO [id number] 06:35:00* Test Item Value Reference Range Interpretation [...] DIFF REQUIRED (test code = MDIFF) NO [id number] 20:15:00* Test Item Value Reference Range Interpretation Comments GLUBED (test code = GLUBED) 193 mg/dL 74-106 H Performed by certified spiral machine operator at [facility] [id number] 16:09:00* Test Item Value Reference Range Interpretation Comments GLUBED (test code = GLUBED) 149 mg/dL 74-106 H Performed by certified spiral machine operator at [facility] - US ABDOMEN [id number] 14:18:00 Name: DEANDRE PHILIP [facility] : 1985 Age/S: 34 / M [address] [facility] Unit #: [id number] Loc: DIGNA Isaacs [address] Phys: Nehemiah Alba NP Acct: [id number] Dis Date: Status: ADM IN PHONE #: [phone] Exam Date: 04/12/2019 2495 FAX #: [phone] Reason: ABDOMINAL PAIN EXAMS: CPT CODE: [id number] US ABDOMEN LTD 95461 REASON FOR EXAM: ABDOMINAL PAIN EXAM ORDER DATE: 04/12/2019 9:52 AM Attending Britany: Nehemiah Alba NP PROCEDURE: - US ABDOMEN LTD Comparison: CT of the abdomen and pelvis the previous night FINDINGS/ IMPRESSION: Visualized portion of the pancreas appears to be within normal limits. Hepatic parenchyma is hyperechoic which likely represents steatosis. Location: [facility] at 1418 Reported and signed by: Jonathan Chandra MD CC: Nehemiah Alba MECH[employer]ICAL SHOP LABORER; Matt Alexandre MD Technologist: ZEN MIRANDA RT(R),RDMS Trnscb Date/Time: 04/12/2019 (1418) [email or web address].SDR.RR31 Orig Print D/T: S: 04/12/2019 (1524) Probe: PAGE 1 Signed Report - US ABDOMEN [id number] 14:18:00 Name: DEANDRE PHILIP [facility] : 1985 Age/S: 34 / M [address] Unit #: [id number] Loc: DIGNA Isaacs [address] Phys: Michelle Alba NP Acct: [id number] Di s Date: 20190413 Status: DIS IN PHONE #: Exam Date: 04/12/2019 1408 FAX #: Reason: ABDOMINAL PAIN EXAMS: CPT CODE: [id number] US ABDOMEN LTD 23792 REASON FOR EXAM: ABDOMINAL PAIN EXAM ORDER DATE: 04/12/2019 9:52 AM At tending M.D.: Nehemiah Alba NP PROCEDURE: - US ABDOMEN LTD Comparison: CT of the abdomen and pelvis the previous night FINDINGS/ IMPRESSION: Visualized portion of the pancreas appe ars to be within normal limits. Hepatic parenchyma is hyperechoic which likely represents steatosis. Location: [facility] Electro nically Signed by Jonathan Chandra MD on 04/12/2019 at 1418 R eported and signed by: Jonathan Chandra MD CC: Nehemiah Alba P; Matt Alexandre MD Technologist: ZEN MIRANDA RT(R),RD MS Trnscb Date/Time: 04/12/2019 (1418) [id number] Orig Print D/T: S: 04/12/2019 (1524) Probe: PAGE 1 Signed Report [id number] 12:45:00* Test Item Value Reference Range Interpretation Comments LIPASE (test code = LIP) 352 U/L 73.0-393.0 N [id number] 11:36:00* Test Item Value Reference Range Interpretation Comments GLUBED (test code = GLUBED) 171 mg/dL 74-106 H Performed by certified spiral machine operator at [facility] [id number] 10:38:00* Test Item Value Reference Range Interpretation [...] This LDL result is a direct measurement.========= [id number] 10:29:00* Test Item Value Reference Range Interpretation Comments ALCOHOL (test code = ALC) < 3 mg/dL 0.0-3.0 N -- INTERPRETIVE DATA NOTE: POSITIVE SCREENING RESULTS SHOULD BE CONSIDERED PRESUMPTIVE.WHEN COLLECTED FOR MEDICAL PURPOSES ONLY. SPECIMEN WILL NOTBE COLLECTED BY CHAIN OF CUSTODY.IF A CONFIRMATION OF POSITIVE RESULTS IS DESIRED, ACONFIRMATION TEST MUST BE REQUESTED BY THE PHYSICIAN AT ANADDITIONAL CHARGE TO THE PATIENT. [id number] 08:12:00* Test Item Value Reference Range Interpretation Comments GLUBED (test code = GLUBED) 140 mg/dL 74-106 H Performed by certified spiral machine operator at [facility] COMPREHENSIVE METABOLIC [id number] 07:50:00* Test Item Value Reference Range Interpretation [...] reference range due to change in reagent. [id number] 07:50:00* Test Item Value Reference Range Interpretation Comments PHOSPHORUS (test code = PHOS) 3.8 mg/dL 2.5-4.9 N [id number] 07:50:00* Test Item Value Reference Range Interpretation Comments MAGNESIUM (test code = MAG) 2.0 mg/dL 1.8-2.4 N COMPREHENSIVE METABOLIC [id number] 07:07:00* Test Item Value Reference Range Interpretation [...] reference range due to change in reagent. [id number] 07:07:00* Test Item Value Reference Range Interpretation Comments PHOSPHORUS (test code = PHOS) 3.8 mg/dL 2.5-4.9 N [id number] 07:07:00* Test Item Value Reference Range Interpretation Comments MAGNESIUM (test code = MAG) 2.0 mg/dL 1.8-2.4 N LACTIC DEHYDROGENASE(LDH)2019-04-12 06:54:00* Test Item Value Reference Range Interpretation Comments LACTIC DEHYDROGENASE(LDH) (test code = LDH) 102 IUnit/L 84-246 N [id number] 04:40:00* Test Item Value Reference Range Interpretation Comments TROPONIN-I (test code = TROPI) <0.015 ng/mL 0-0.045 N DRUGS OF ABUSE SCREEN [id number] 02:03:00* Test Item Value Reference Range Interpretation [...] NEGATIVE <300 ng/mL DRUGS OF ABUSE SCREEN [id number] 01:33:00* Test Item Value Reference Range Interpretation [...] code = [place]) <300 ng/mL BASIC METABOLIC [id number] 00:47:00* Test Item Value Reference Range Interpretation [...] CA) 8.4 mg/dL 8.5-10.1 L HEPATIC FUNCTION [id number] 00:47:00* Test Item Value Reference Range Interpretation [...] reference range due to change in reagent. 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 Acct: [id number] Dis Date: Status: REG ER PHONE #: [phone] Exam Date: 04/11/20192309 FAX #: [phone] Reason: ABD PAIN EXAMS: CPT CODE: [id number] CT ABD PELVIS W/CONT [address]08 CT ABDOMEN AND PELVIS ( with intravenous [...] 1 Signed Report (CONTINUED) Name: DEANDRE TRENT [facility] : 1985 A ge/S: 34 / M [address] Unit #: [id number] Loc : DIGNA Isaacs [address] Phys: Mj Borges MECH[employer]ICAL SHOP LAB[employer]ER Acct: [id number] Dis Date: Status: REG ER PHONE #: [phone] Exam Date: 04/11/20192309 FAX #: [phone] Reason: ABD PAIN EXAMS: CPT CODE: [id number] CT ABD PELVIS W/CONT 38579 <Continued> at 2335 Reported and signed by: Greg Baez M.D. CC: Andres Blanco MD; Mj Borges NP Technologist:RT MERVIN CTDI: DLP: Trnscb Date/Time: 04/11/2019 (2335) [id number] Orig Print D/T: S: 04/11/2019 (7412) PAGE 2 Signed Report - CT ABD PELVIS [id number] 23:35:00 Name: DEANDRE PHILIP [facility] : 1985 Age/S: 34 / M [address] Unit #: [id number] Loc: DIGNA Isaacs [address] Phys: Mj Borges MECH[employer]ICAL SHOP LAB[employer]ER Acct: [id number] Dis Date: 04/13/2019 Status: DIS IN PHONE #: [phone] Exam Date: 04/11/20192309 FAX #: [phone] Reason: ABD PAIN EXAMS: CPT CODE: [id number] CT ABD PELVIS W/CONT 41299 CT ABDOMEN AND PELVIS ( with intravenous [...] 1 Signed Report (CONTINUED) Name: DEANDRE PHILIP [facility] : 1985 Age/S: 34 / M [address] Unit #: [id number] Loc: DIGNA Isaacs [address] Phys: Mj Borges MECH[employer]ICAL [employer] LAB[employer]ER Acct: [id number] Dis Date: 04/13/2019 Status: DIS IN PHONE #: [phone] Exam Date: 04/11/2019 2310 FAX #: [phone] Reason: ABD PAIN EXAMS: CPT CODE: [id number] CT ABD PELVIS W/CONT 92267 <Continued> at 3970 Reported and signed by: Greg Baez M.D. CC: Andres Blanco MD; Mj Borges NP Technologist:RT MERVIN CTDI: DLP: Trnscb Date/Time: 04/11/2019 (7905) t.GIANA.RK5 Orig Print D/T: S: 04/11/2019 (6504) PAGE 2 Signed Report BASIC METABOLIC [id number] 23:12:00* Test Item Value Reference Range Interpretation [...] CA) 8.4 mg/dL 8.5-10.1 L HEPATIC FUNCTION [id number] 23:12:00* Test Item Value Reference Range Interpretation [...] reference range due to change in reagent. [id number] 23:12:00* Test Item Value Reference Range Interpretation Comments LIPASE (test code = LIP) 552 U/L 73.0-393.0 H [id number] 23:12:00* Test Item Value Reference Range Interpretation Comments TROPONIN-I (test code = TROPI) <0.015 ng/mL 0-0.045 N BASIC METABOLIC [id number] 22:55:00* Test Item Value Reference Range Interpretation [...] code = CA) mg/dL 8.5-10.1 HEPATIC FUNCTION [id number] 22:55:00* Test Item Value Reference Range Interpretation [...] TOTAL (test code = ALKP) IUnit/L 45-117 [id number] 22:55:00* Test Item Value Reference Range Interpretation Comments LIPASE (test code = LIP) U/L 73.0-393.0 [id number] 22:55:00* Test Item Value Reference Range Interpretation Comments TROPONIN-I (test code = TROPI) ng/mL 0-0.045 URINALYSIS [id number] 22:51:00* Test Item Value Reference Range Interpretation [...] #/LPF FEW Urine Source? Clean CatchCBC W/O [id number] 22:37:00* Test Item Value Reference Range Interpretation [...] MPV) 10.2 fL 6.7-11.0 N CBC W/O [id number] 22:36:00* Test Item Value Reference Range Interpretation [...] VOLUME (test code = MPV) fL 6.7-11.0 [id number] 08:04:00* Test Item Value Reference Range Interpretation Comments GLUBED (test code = GLUBED) 137 mg/dL 74-106 H Performed by certified spiral machine operator at [facility] BASIC METABOLIC [id number] 05:15:00* Test Item Value Reference Range Interpretation [...] CA) 9.2 mg/dL 8.5-10.1 N BASIC METABOLIC [id number] 05:10:00* Test Item Value Reference Range Interpretation [...] code = CA) mg/dL 8.5-10.1 CBC W/AUTO [id number] 04:49:00* Test Item Value Reference Range Interpretation [...] code = NRBC#) 0.00 K/mm3 0.0-0.1 N [id number] 21:26:00* Test Item Value Reference Range Interpretation Comments GLUBED (test code = GLUBED) 242 mg/dL 74-106 H Performed by certified spiral machine operator at [facility] [id number] 16:25:00* Test Item Value Reference Range Interpretation Comments GLUBED (test code = GLUBED) 184 mg/dL 74-106 H Performed by certified spiral machine operator at [facility] [id number] 11:17:00* Test Item Value Reference Range Interpretation Comments GLUBED (test code = GLUBED) 223 mg/dL 74-106 H Performed by certified spiral machine operator at [facility] [id number] 07:51:00* Test Item Value Reference Range Interpretation Comments GLUBED (test code = GLUBED) 229 mg/dL 74-106 H Performed by certified spiral machine operator at [facility] [id number] 21:05:00* Test Item Value Reference Range Interpretation Comments GLUBED (test code = GLUBED) 156 mg/dL 74-106 H Performed by certified spiral machine operator at [facility] [id number] 18:34:00* Test Item Value Reference Range Interpretation Comments GLUBED (test code = GLUBED) 199 mg/dL 74-106 H Performed by certified spiral machine operator at [facility] [id number] 18:34:00* Test Item Value Reference Range Interpretation Comments GLUBED (test code = GLUBED) 213 mg/dL 74-106 H Performed by certified spiral machine operator at [facility] [id number] 08:41:00* Test Item Value Reference Range Interpretation Comments GLUBED (test code = GLUBED) 128 mg/dL 74-106 H Performed by certified spiral machine operator at [facility] [id number] 21:11:00* Test Item Value Reference Range Interpretation Comments GLUBED (test code = GLUBED) 245 mg/dL 74-106 H Performed by certified spiral machine operator at [facility] [id number] 16:43:00* Test Item Value Reference Range Interpretation Comments GLUBED (test code = GLUBED) 179 mg/dL 74-106 H Performed by certified spiral machine operator at [facility] [id number] 12:19:00* Test Item Value Reference Range Interpretation Comments GLUBED (test code = GLUBED) 147 mg/dL 74-106 H [facility] certified spiral machine operator [facility]~ [id number] 08:25:00* Test Item Value Reference Range Interpretation Comments GLUBED (test code = GLUBED) 138 mg/dL 74-106 H Per[facility] certified spiral machine operator [facility]~ ACUTE HEPATITIS [id number] 08:10:00* Test Item Value Reference Range Interpretation [...] with a HCV Nucleic Acid Amplification test (232321).Performed At: [facility] [id number] Jadon Carvalho MD Ph:[phone] [id number] 20:11:00* Test Item Value Reference Range Interpretation Comments GLUBED (test code = GLUBED) 216 mg/dL 74-106 H Performed [facility] certified spiral machine operator [facility]~ [id number] 16:53:00* Test Item Value Reference Range Interpretation Comments GLUBED (test code = GLUBED) 142 mg/dL 74-106 H [facility] certified spiral machine operator [facility]~ [id number] 12:02:00* Test Item Value Reference Range Interpretation Comments GLUBED (test code = GLUBED) 210 mg/dL 74-106 H Performed by certified spiral machine operator at [facility] - US ABDOMEN [id number] 10:41:00 [facility] 1985 [facility]S: 34 / M [address] Unit #: [id number] Loc: DIGNA Isaacs [address] Phys: Ana Pearl MD Acct: [id number] Dis Date: Status: ADM IN PHONE #: [phone] Exam Date: 03/07/2019 1036 FAX #: [phone] Reason: cirrhosis? EXAMS: CPT CODE: [id number] US ABDOMEN LTD 15628 REASON FOR EXAM: cirrhosis? EXAM ORDER DATE: [...] 1 Signed Report (CONTINUED) Name: DEANDRE PHILIP [facility] : 1985 Age/S: 34 / M [address] Unit #: [id number] Loc: DIGNA Isaacs [address] Phys: Ana Pearl MD Acct: [id number] Dis Date: Status: ADM IN PHONE #: [phone] Exam Date: 03/07/2019 1036 FAX #: [phone] Reason: cirrhosis? EXAMS: CPT CODE: [id number] US ABDOMEN LTD 86873 <Continued> IMPRESSION: Hepatomegaly with hepatic steatosis. Prior cholecystectomy. Location: [facility] Electronically Si gned by Jonathan Chandra MD on 03/07/2019 at 1041 Reported an d signed by: Jonathan Chandra MD CC: Shayy Chamberlain MD; Ana Pearl MD Technologist: DONNA LUONG RT(R), RDMS Trnscb Date/Time: 03/07/2019 (1041) [id number].SDR.RR31 Orig Print D/T: S: 03/07/2019 (2932) Probe: PAGE 2 Signed Report HEPATIC FUNCTION [id number] 09:37:00* Test Item Value Reference Range Interpretation [...] reference range due to change in reagent. [id number] 08:23:00* Test Item Value Reference Range Interpretation Comments GLUBED (test code = GLUBED) 105 mg/dL 74-106 N Performed by certified spiral machine operator at [facility] BASIC METABOLIC [id number] 05:51:00* Test Item Value Reference Range Interpretation [...] CA) 8.9 mg/dL 8.5-10.1 N BASIC METABOLIC [id number] 05:42:00* Test Item Value Reference Range Interpretation [...] code = CA) mg/dL 8.5-10.1 CBC W/AUTO [id number] 05:37:00* Test Item Value Reference Range Interpretation [...] code = NRBC#) 0.00 K/mm3 0.0-0.1 N [id number] 16:28:00* Test Item Value Reference Range Interpretation Comments GLUBED (test code = GLUBED) 184 mg/dL 74-106 H Performed by certified spiral machine operator at [facility] [id number] 12:36:00* Test Item Value Reference Range Interpretation Comments GLUBED (test code = GLUBED) 261 mg/dL 74-106 H Performed by certified spiral machine operator at [facility] [id number] 07:26:00* Test Item Value Reference Range Interpretation Comments GLUBED (test code = GLUBED) 194 mg/dL 74-106 H Performed by certified spiral machine operator at [facility] [id number] 20:23:00* Test Item Value Reference Range Interpretation Comments GLUBED (test code = GLUBED) 266 mg/dL 74-106 H Performed by certified spiral machine operator at [facility] [id number] 16:23:00* Test Item Value Reference Range Interpretation Comments GLUBED (test code = GLUBED) 292 mg/dL 74-106 H Performed by certified spiral machine operator at [facility] [id number] 16:23:00* Test Item Value Reference Range Interpretation Comments GLUBED (test code = GLUBED) 302 mg/dL 74-106 H Performed by certified spiral machine operator at [facility] [id number] 11:24:00* Test Item Value Reference Range Interpretation Comments GLUBED (test code = GLUBED) 218 mg/dL 74-106 H Performed by certified spiral machine operator at [facility] [id number] 07:51:00* Test Item Value Reference Range Interpretation Comments GLUBED (test code = GLUBED) 158 mg/dL 74-106 H Performed by certified spiral machine operator at [facility] BASIC METABOLIC [id number] 06:00:00* Test Item Value Reference Range Interpretation [...] CA) 8.9 mg/dL 8.5-10.1 N BASIC METABOLIC [id number] 05:54:00* Test Item Value Reference Range Interpretation [...] code = CA) mg/dL 8.5-10.1 CBC W/AUTO [id number] 05:33:00* Test Item Value Reference Range Interpretation [...] code = NRBC#) 0.00 K/mm3 0.0-0.1 N [id number] 21:10:00* Test Item Value Reference Range Interpretation Comments GLUBED (test code = GLUBED) 283 mg/dL 74-106 H Performed by certified spiral machine operator at [facility] [id number] 16:52:00* Test Item Value Reference Range Interpretation Comments GLUBED (test code = GLUBED) 197 mg/dL 74-106 H Performed by certified spiral machine operator at [facility] [id number] 11:42:00* Test Item Value Reference Range Interpretation Comments GLUBED (test code = GLUBED) 187 mg/dL 74-106 H Performed by certified spiral machine operator at [facility] [id number] 08:01:00* Test Item Value Reference Range Interpretation Comments GLUBED (test code = GLUBED) 88 mg/dL 74-106 N Performed by certified spiral machine operator at [facility] [id number] 20:51:00* Test Item Value Reference Range Interpretation Comments GLUBED (test code = GLUBED) 267 mg/dL 74-106 H Performed by certified spiral machine operator at [facility] [id number] 16:28:00* Test Item Value Reference Range Interpretation Comments GLUBED (test code = GLUBED) 234 mg/dL 74-106 H Performed by certified spiral machine operator at [facility] [id number] 11:54:00* Test Item Value Reference Range Interpretation Comments GLUBED (test code = GLUBED) 157 mg/dL 74-106 H Performed by certified spiral machine operator at [facility] [id number] 08:23:00* Test Item Value Reference Range Interpretation Comments GLUBED (test code = GLUBED) 144 mg/dL 74-106 H Performed by certified spiral machine operator at [facility] BASIC METABOLIC [id number] 06:18:00* Test Item Value Reference Range Interpretation [...] CA) 8.2 mg/dL 8.5-10.1 L CBC W/AUTO [id number] 06:13:00* Test Item Value Reference Range Interpretation [...] (test code = MDIFF) NO BASIC METABOLIC [id number] 06:13:00* Test Item Value Reference Range Interpretation [...] CALCIUM (test code = CA) mg/dL 8.5-10.1 [id number] 20:14:00* Test Item Value Reference Range Interpretation Comments GLUBED (test code = GLUBED) 182 mg/dL 74-106 H Performed by certified spiral machine operator at [facility] [id number] 15:59:00* Test Item Value Reference Range Interpretation Comments GLUBED (test code = GLUBED) 223 mg/dL 74-106 H Performed by certified spiral machine operator at [facility] [id number] 11:35:00* Test Item Value Reference Range Interpretation Comments GLUBED (test code = GLUBED) 164 mg/dL 74-106 H Performed by certified spiral machine operator at [facility] [id number] 07:50:00* Test Item Value Reference Range Interpretation Comments GLUBED (test code = GLUBED) 113 mg/dL 74-106 H Performed by certified spiral machine operator at [facility] BASIC METABOLIC [id number] 05:33:00* Test Item Value Reference Range Interpretation [...] CA) 9.0 mg/dL 8.5-10.1 N CBC W/AUTO [id number] 05:29:00* Test Item Value Reference Range Interpretation [...] code = NRBC#) 0.00 K/mm3 0.0-0.1 N [id number] 20:55:00* Test Item Value Reference Range Interpretation Comments GLUBED (test code = GLUBED) 187 mg/dL 74-106 H Performed by certified spiral machine operator at [facility] [id number] 16:24:00* Test Item Value Reference Range Interpretation Comments GLUBED (test code = GLUBED) 274 mg/dL 74-106 H Per[facility]~ - DUP AB/PEL/SC [id number] 09:07:00 Name: DEANDRE PHILIP [facility] : 1985 Age/S: 34 / M [address] Unit #: [id number] Loc: [place] [address] Phys: Cheryl Lawton [employer] Acct: [id number] Dis Date: Status: REG ER PHONE #: [phone] Exam Date: 03/01/2019 0840 FAX #: [phone] Reason: SCROTAL PAIN EXAMS: CPT CODE: [id number] DUP AB/PEL/SC COMP 04674 HISTORY: Testicular pain. COMPARISON: None available. Bilateral testicular ultrasound with color and Doppler flow and grayscale imaging. Location: [facility]. Low-resistance arterial Doppler flow with normal spectral [...] 1 Signed Report (CONTINUED) Name: DEANDRE PHILIP [facility] : 1985 Age/S: 34 / M [address] Unit #: [id number] Loc: [place], [place] [address] Phys: Cheryl Lawton NP Acct: [id number] Dis Date: Status: REG ER PHONE #: [phone] Exam Date: 03/01/2019 0840 FAX #: [phone] Reason: SCROTAL PAIN EXAMS: CPT CODE: [id number] DUP AB/PEL/SC COMP 57922 <Continued> CC: Cheryl Lawton NP Technologist: ZEN MIRANDA RT(R),RDMS Trnscb Date/Time: 03/01/2019 (906) [email or web address] Orig Print D/T: S: 03/01/2019 (09) Probe: PAGE 2 Signed Report - US SCROTUM AND [id number] 09:07:00 Name: DEANDRE PHILIP [facility] : 1985 Age/S: 34 / M [address] Unit #: [id number] Loc: [place] [address] Phys: Kely Lawton ME[employer]ICAL [employer]ER Acct: [id number] Di s Date: Status: REG ER PHONE #: [phone] Exam Date: 03/01/2019839 FAX #: Reason: SCROTAL PAIN EXAMS: CPT CODE: [id number] US SCROTUM AND CNTS 25711 HISTORY: Testicular pain. COMPARISON: None available. Bilateral testicular ul trasound with color and Doppler flow and grayscale imaging. Location: [facility]. Low-resistance arterial Doppler flow with normal sp [...] Signed Report (CONTINUED) N jesenia: DEANDRE PHILIP [facility] : 0 1985 Age/S: 34 / M [address] Unit #: [id number] Loc: [place] [address] Phys: Cheryl Lawton MECH[employer]ICAL [employer] Acct: [id number] Dis D ate: Status: REG ER PHONE #: Exam Date: 03/01/2019839 FAX #: [phone] Reason: SCROTAL PAIN EXAMS: CPT CODE: [id number] US SCROTUM AND C NTS 67835 <Continued> CC: Cheryl Lawton NP Technologist: ZEN MIRANDA RT(R),RDMS Trnscb Date/Time: 03/01/2019 (906) [email or web address] Orig Print D/T: S: 03/01/2019 (910) Probe: PAGE 2 Signed Report BASIC METABOLIC [id number] 09:02:00* Test Item Value Reference Range Interpretation [...] CA) 9.2 mg/dL 8.5-10.1 N HEPATIC FUNCTION [id number] 09:02:00* Test Item Value Reference Range Interpretation [...] range due to change in reagent. URINALYSIS [id number] 08:57:00* Test Item Value Reference Range Interpretation [...] #/LPF FEW Urine Source? Clean CatchBASIC METABOLIC [id number] 08:54:00* Test Item Value Reference Range Interpretation [...] code = CA) mg/dL 8.5-10.1 HEPATIC FUNCTION [id number] 08:54:00* Test Item Value Reference Range Interpretation [...] (test code = ALKP) IUnit/L 45-117 URINALYSIS [id number] 08:44:00* Test Item Value Reference Range Interpretation [...] HPF NONE Urine Source? Clean CatchCBC W/O [id number] 08:44:00* Test Item Value Reference Range Interpretation [...] code = MPV) 10.5 fL 6.7-11.0 N [id number] 11:32:00* Test Item Value Reference Range Interpretation Comments GLUBED (test code = GLUBED) 118 mg/dL 74-106 H Performed by certified spiral machine operator at [facility] [id number] 08:55:00* Test Item Value Reference Range Interpretation Comments GLUBED (test code = GLUBED) 103 mg/dL 74-106 N Performed by certified spiral machine operator at [facility] [id number] 02:57:00* Test Item Value Reference Range Interpretation Comments LIPASE (test code = LIP) 251 U/L 73.0-393.0 N [id number] 21:04:00* Test Item Value Reference Range Interpretation Comments GLUBED (test code = GLUBED) 163 mg/dL 74-106 H Performed by certified spiral machine operator at [facility] [id number] 16:08:00* Test Item Value Reference Range Interpretation Comments GLUBED (test code = GLUBED) 124 mg/dL 74-106 H Performed by certified spiral machine operator at [facility] [id number] 11:39:00* Test Item Value Reference Range Interpretation Comments GLUBED (test code = GLUBED) 113 mg/dL 74-106 H Performed by certified spiral machine operator at [facility] [id number] 09:57:00* Test Item Value Reference Range Interpretation Comments LIPASE (test code = LIP) 522 U/L 73.0-393.0 H [id number] 07:58:00* Test Item Value Reference Range Interpretation Comments GLUBED (test code = GLUBED) 128 mg/dL 74-106 H Performed by certified spiral machine operator at [facility] CBC W/AUTO [id number] 03:29:00* Test Item Value Reference Range Interpretation [...] (test code = MDIFF) NO COMPREHENSIVE METABOLIC [id number] 03:13:00* Test Item Value Reference Range Interpretation [...] due to change in reagent. COMPREHENSIVE METABOLIC [id number] 03:07:00* Test Item Value Reference Range Interpretation [...] TOTAL (test code = ALKP) IUnit/L 45-117 [id number] 20:17:00* Test Item Value Reference Range Interpretation Comments GLUBED (test code = GLUBED) 126 mg/dL 74-106 H Performed by certified spiral machine operator at [facility] [id number] 17:47:00* Test Item Value Reference Range Interpretation Comments GLUBED (test code = GLUBED) 129 mg/dL 74-106 H Performed by certified spiral machine operator at [facility] LIPID PROFILE (CORONARY RISK)2018-10-17 13:02:00* Test Item [...] LDL result is a direct measurement.========= LACTIC [id number] 12:56:00* Test Item Value Reference Range Interpretation Comments LACTIC ACID (test code = LACT) 1.2 mmol/L 0.4-1.9 N [id number] 12:06:00* Test Item Value Reference Range Interpretation Comments GLUBED (test code = GLUBED) 115 mg/dL 74-106 H Performed by certified spiral machine operator at [facility] [id number] 11:09:00* Test Item Value Reference Range Interpretation Comments LIPASE (test code = LIP) 727 U/L 73.0-393.0 H [id number] 11:07:00* Test Item Value Reference Range Interpretation Comments GLYCOSYLATED HEMOGLOBIN (HA1C) (test code = GLYHGB) 7.8 % HbA1 4. 8-6.0 H ESTIMATED AVERAGE GLUCOSE (test code = EAG) 177 MG/DL LACTIC [id number] 08:57:00* Test Item Value Reference Range Interpretation Comments LACTIC ACID (test code = LACT) 1.1 mmol/L 0.4-1.9 N [id number] 08:02:00* Test Item Value Reference Range Interpretation Comments GLUBED (test code = GLUBED) 149 mg/dL 74-106 H Performed by certified spiral machine operator at [facility] - CT ABD PELVIS [id number] 05:22:00 Name: DEANDRE PHILIP [facility] : 1985 Age/S: 33 / M [address] Unit #: [id number] Loc: [place] [address] Phys: Cheryl Lawton 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 CC: Vviienne Madison MD; Cheryl Lawton NP Technologist:RT MERVIN CTDI: DLP: Trnscb Date/Time: 10/17/2018 (521) [email or web address] Orig Print D/T: S: 10/17/2018 (7777) PAGE 2 Signed Report [id number] 05:06:00* Test Item Value Reference Range Interpretation Comments TROPONIN-I (test code = TROPI) <0.015 ng/mL 0-0.045 N LACTIC [id number] 04:48:00* Test Item Value Reference Range Interpretation Comments LACTIC ACID (test code = LACT) 1.0 mmol/L 0.4-1.9 N URINALYSIS [id number] 04:46:00* Test Item Value Reference Range Interpretation [...] FEW #/LPF FEW Urine Source? Clean CatchURINALYSIS [id number] 04:45:00* Test Item Value Reference Range Interpretation [...] HPF NONE Urine Source? Clean CatchBASIC METABOLIC [id number] 04:45:00* Test Item Value Reference Range Interpretation [...] CA) 9.4 mg/dL 8.5-10.1 N HEPATIC FUNCTION [id number] 04:45:00* Test Item Value Reference Range Interpretation [...] reference range due to change in reagent. [id number] 04:45:00* Test Item Value Reference Range Interpretation Comments LIPASE (test code = LIP) 834 U/L 73.0-393.0 H BASIC METABOLIC [id number] 04:38:00* Test Item Value Reference Range Interpretation [...] code = CA) mg/dL 8.5-10.1 HEPATIC FUNCTION [id number] 04:38:00* Test Item Value Reference Range Interpretation [...] TOTAL (test code = ALKP) IUnit/L 45-117 [id number] 04:38:00* Test Item Value Reference Range Interpretation Comments LIPASE (test code = LIP) U/L 73.0-393.0 CBC W/O [id number] 04:22:00* Test Item Value Reference Range Interpretation [...] MPV) 9.6 fL 6.7-11.0 N CBC W/O [id number] 04:20:00* Test Item Value Reference Range Interpretation [...] MPV) fL 6.7-11.0 - XR CHEST 1 [id number] 04:09:00 FAX: Cheryl Lawton NP [place]: St: REG Name: DEANDRE SMITH [facility] : [birth year] Age/S: 33/M [address] Unit #: [id number] Loc: [place] [address] Phys: Cheryl Lawton NP Acct: [id number] Dis Date: Status: REG ER PHONE #: [phone] Exam Date: 10/17/2018 035 FAX #: [phone] Reason: ABDOMINAL PAIN EXAMS: CPT CODE: [id number] XR CHEST 1 V 25785 Location: T 18 CHEST X- RAY: AP frontal projection, one view, 10/17/18 CLINICAL HISTORY: Abdominal pain, emergency room presentation COMPARISON EXAMS: None of the chest FINDINGS: Heart, lungs, and mediastinal structures are within normal limits. No pleural based collection or a bnormal air collection. IMPRESSION: No acute finding at 0409 Reported and signed by: Emerald Zambrano M.D. CC: Cheryl Lawton NP Technologist: Scarlet Bell Trnscrd D ate/Time/By: 10/17/2018 (0409) : By: [email or web address] Orig Print D/T: S: 04/2018 (0413) PAGE 1 Signed Repor t POC LACTIC [id number] 04:03:00* Test Item Value Reference Range Interpretation Comments POC LACTIC ACID (test code = POCLAC) 2.37 MMOL/L 0.4-2.2 H Lipid [id number] 07:21:00* Test Item Value Reference Range Interpretation Comments Cholesterol (test code = 2093-3) 244.0 mg/dL <=200.0 H Desirable: < 200.0 mg/dLBorderline: 200 - 240 mg/dLHigh Risk: > 240 mg/dL Triglyceride (test code = 87432879) 990 mg/dL <150 H Normal: < 150.0 mg/dL Borderline: 150-199 mg/dL High: 200-499 mg/dL Very High: >= 500 mg/dL HDL (test code = 2085-9) 31.0 mg/dL See Reference Range Narrative . Increased CHD Risk: < 40.0 mg/dL Decreased CHD Risk: > 60 mg/dL LDL (test code = 76407-4) <100 mg/dL Tr iglyceride value is > 400 mg/dl. Unable to calculate LDL value due to high triglyceride. Lab Interpretation (test code = 38359-8) [facility] [id number] 07:21:00* Test Item Value Reference Range Interpretation Comments Sodium (test code = 2951-2) 138 mmol/L 136-145 Potassium (test code = 2823-3) 4.8 mmol/L 3.5-5.1 Chloride (test code = 2075-0) 103 mmol/L 98-107 CO2 (test code = 93278956) 26 mmol/L 21-31 Glucose (test code = 35127450) 148 mg/dL 70-110 H Calcium (test code = 78100029) 9.4 mg/dL 8.6-10.3 Urea Nitrogen (test code = 54503185) 15.0 mg/dL 7-25 Creatinine (test code = 96265181) 0.9 mg/dL 0.7-1.3 Alkaline Phosphatase (test code = 75484029) 77 U/L 34-104 ALT (test code = 12486255) 79 U/L 7-52 H AST (test code = 78951877) 37 U/L 13-39 Total Protein (test code = 2885-2) 6.8 g/dL 6-8.3 GFR, Estimated (test code = 20172032) >90 >=90 mL/min/1.73 m2 Albumin (test code = 21262-9) 4.5 g/dL 4.2-5.5 Anion Gap (test code = 52150468) 9 mmol/L 5-16 Lab Interpretation (test code = 55893-6) [facility] [id number] 15:50:00* Test Item Value Reference Range Interpretation Comments Hemoglobin A1c (test code = 4548-4) 7.6 % 4.3-6.1 H Estimated Average Glucose (test code = 90738541) 171 mg/dL 70-11 0 H Lab Interpretation (test code = 53261-7) [facility]normal [facility] 3 VIEWS [id number] 13:59:54IMPRESSION: Scattered degenerative change. No osseous erosion [...] t.Signed By: Buddy Davies MD, 09/13/2018 1:59 [facility] [id number] 12:04:34* Test Item Value Reference Range Interpretation Comments RETINAL SCAN-FINAL RESULT (test code = 42106) NORMAL Right Diabetic Retinopathy (test code = 743361) None Right Macular Edema (test code = 21980) None Right Other Suspected Conditions (test code = 12381) None Right Image Quality (test code = 90575) Gradeable Image Left Diabetic Retinopathy (test code = 99157) None Left Macular Edema (test code = 32005) None Left Other Suspected Conditions (test code = 11634) None Left Image Quality (test code = 56395) Gradeable Image VIDA (test code = VIDA) Retinal Study Result for DU DEANDRE CHAUDHARI JOEL, a 33 y/o, M (: 1985, )presented to [facility] on 09-13-2018 for a retinal [...] signed by Trev Coreas MD, , Taxonomy: [id number] on 09-13-2018 05:04:34 [facility] time. NOTE: Any pathology noted on this diabetic retinal evaluation should be confirmed by an appropriate ophthalmic examination. [facility] GLUCOSE POC docked [id number] 12:27:00* Test Item Value Reference Range Interpretation Comments Glucose POC (test code = 24167553) 154 mg/dL 74-106 H Lab Interpretation (test code = 36269-7) Abnormal [facility]
[2019-07-22] MEDS ORDERED: SODIUM CHLORIDE 0.9% 1000ML 1,000 ML IV STA ×2 (07:32→10:32)
[2019-07-22] MEDS ORDERED: ONDANSETRON HCL INJ 2MG/ML 2ML 2 MG/ML VIAL IV STA (07:32)
[2019-07-22] MEDS ORDERED: PANTOPRAZOLE 40 MG 10ML VIAL IV STA (07:32)
[2019-07-22] MEDS ORDERED: HYDROMORPHONE 1MG/1ML INJ IV STA (07:32)
[2019-07-22 07:41] LABS: BASOPHILS # (AUTO) 0.1 (0.0-0.1); EOSINOPHILS # (AUTO) 0.4 (0.0-0.4); EOSINOPHILS % 5.2 % (0.0-6.0); HEMATOCRIT 41.3 % (38.2-49.6); HEMOGLOBIN 15.4 g/dL (14.0-18.0); LYMPHOCYTES # (AUTO) 2.6 (1.0-3.2); LYMPHOCYTES % 37.4 % (18.0-39.1); MEAN CORPUSCULAR HEMOGLOBIN 30.4 pg (28-32); MEAN CORPUSCULAR HGB CONC 37.3 g/dL (31-35); MEAN CORPUSCULAR VOLUME 81.6 fL (81-99); MONOCYTES # (AUTO) 0.4 (0.2-0.8); MONOCYTES % 5.9 % (4.4-11.3); NEUTROPHILS # (AUTO) 3.5 (2.1-6.9); NEUTROPHILS % 50.1 % (38.7-80.0); PLATELET COUNT 334 x10e3/uL (140-360); RED BLOOD COUNT 5.06 x10e6/uL (4.3-5.7); RED CELL DISTRIBUTION WIDTH 12.6 % (11.7-14.4)
[2019-07-22 08:02] LABS: ALBUMIN/GLOBULIN RATIO 0.7 (0.8-2.0); ALKALINE PHOSPHATASE 112 IU/L (40-150); AMYLASE 71 U/L (25-125); ANION GAP 31.1 mmol/L (8-16); BLOOD UREA NITROGEN 11 mg/dL (7-26); BUN/CREATININE RATIO 15 (6-25); CALCIUM 9.8 mg/dL (8.4-10.2); CHLORIDE 98 mmol/L (98-107); CREATININE, SERUM 0.74 mg/dL (0.72-1.25); EST GLOMERULAR FILTRATION RATE > 60 ML/MIN (60-); GLUCOSE 231 mg/dL (74-118); LIPASE 184 U/L (8-78); POTASSIUM 4.1 mmol/L (3.5-5.1); SODIUM 131 mmol/L (136-145)
[2019-07-22 08:07] LABS: CARBON DIOXIDE 6 mmol/L (22-29)
--- NOTE | 2019-07-22 08:13 | NUR ---
pt states he is diabetic and takes metformin 500 mg po bid did not take it this morning has not eaten today and has only drank water today notified
--- NOTE | 2019-07-22 08:14 | NUR ---
states hx of htn but does not take meds for it due to inability to get to the [facility] to get seen and treated for it
[2019-07-22 08:17] LABS: ALANINE AMINOTRANSFERASE 12 IU/L (0-55)
[2019-07-22] MEDS ORDERED: SODIUM CHLORIDE 0.9% 1000ML 1,000 ML ONE (08:25)
[2019-07-22] MEDS ORDERED: SODIUM CHLORIDE 0.9% 1000ML 1,000 ML IV ONE ×2 (08:45)
[2019-07-22 08:56] LABS: SALICYLATE < 5.0 mg/dL (0-30)
--- NOTE | 2019-07-22 08:58 | NUR ---
lab called with critical lab value lactic 2.2 notified
[2019-07-22 09:03] LABS: CLARITY,URINE CLEAR (CLEAR); COLOR,URINE YELLOW (YELLOW)
[2019-07-22 09:04] LABS: BILIRUBIN,URINE NEGATIVE (NEGATIVE); KETONES,URINE TRACE (NEGATIVE); LEUKOCYTE ESTERASE ,URINE NEGATIVE (NEGATIVE); MUCUS,URINE FEW (RARE); NITRITE,URINE NEGATIVE (NEGATIVE); PROTEIN,URINE DIPSTICK NEGATIVE (NEGATIVE); RBC,URINE 0-5 /HPF (0-5); URINE UROBILINOGEN 0.2 mg/dL (0.2 - 1); WBC,URINE (MAN) 0-5 /HPF (0-5)
[2019-07-22 09:05] LABS: AMPHETAMINES SCREEN,URINE NEGATIVE (NEGATIVE); BENZODIAZEPINES SCREEN,URINE NEGATIVE (NEGATIVE); PHENCYCLIDINE SCREEN,URINE NEGATIVE (NEGATIVE)
[2019-07-22] MEDS ORDERED: SODIUM CHLORIDE 0.9% 50ML 50 ML ONE (09:13)
[2019-07-22] MEDS ORDERED: IOPAMIDOL 370 MG/ML 200 ML INFUS..BTL INJ ONE (09:14)
--- NOTE | 2019-07-22 09:15 | NUR ---
when asked about drug use pt first said no then when told ua was positive for cocaine pt states he hasn't used in a couple of months and states when he used he snorted cocaine notified
--- NOTE | 2019-07-22 09:36 | Emergency Department Note ---
History of Present Illnes History of Present Illness Chief Complaint: Abdominal Complaints History of Present Illness This is a 34 year old male PATIENT IN FROM HOME WITH COMPLAINTS OF RIGHT UPPER ABDOMINAL PAIN SINCE TUESDAY; RECENT ADMISSION FOR PANCREATITIS. PATIENT WAS DISCHARGED HOME ON 07/08/2019. PATIENT DENIES NAUSEA, VOMITING, OR DIARRHEA. PATIENT RATES PAIN 11/23 Historian: Patient Arrival Mode: Car Vice President Underwriting Required: No Onset (how long ago): day(s) (2) Location: mirza/ruq Quality: pain Radiation: non-radiation Severity: severe Onset quality: gradual Timing of current episode: constant Progression: worsening Chronicity: recurrent Context: recent illness (RECENTLY HERE IN HOSPITAL FOR PANCREATITIS FROM 07/03- 07/08/19, FOUND TO HAVE TRIGLYCERIDES OF ALMOST 2000.) Relieving factors: none Exacerbating factors: eating Associated symptoms: denies other symptoms Treatments prior to arrival: none Past Medical/Family History Physician Review I have reviewed the patient's past medical and family history. Any updates have been documented here. Past Medical History Recent Fever: No Clinical Suspicion of Infectio: No New/Unexplained Change in Ment: No Past Medical History: Hypertension, Diabetes, Hyperlipedemia Other Medical History: PANCREATITIS Past Surgical History: Cholecysctectomy Social History Smoking Cessation: Current every day smoker Counseling Performed: Yes Alcohol Use: Occasional (SAYS HE HASN'T HAD ANY ALCOHOL SINCE HE WAS ADMITTED FOR PANCREATITIS) Any Illegal Drug Use: No TB Exposure/Symptoms: No Physically hurt or threatened: No Family History Family history of heart diseas: No Other Last Tetanus: UNKNOWN Any Pre-Existing Lines (PICC,: No Is patient up to date on immun: Yes Last Flu: OOD Last Pneumovax: NA Review of Systems Review of Systems Constitutional: no symptoms EENTM: no symptoms Cardiovascular: no symptoms Respiratory: no symptoms Gastrointestinal: abdominal pain Genitourinary: no symptoms Musculoskeletal: no symptoms Neurological: no symptoms Psychological: no symptoms Endocrine: no symptoms Hematological/Lymphatic: no symptoms Review of other systems All other systems reviewed and negative. Physical Exam Related Data Allergies: Coded Allergies: No Known Allergies (Unverified , 07/04/19) Triage Vital Signs Vital Signs Date Time Temp Pulse Resp B/P (MAP) Pulse Ox O2 Delivery O2 Flow Rate FiO2 07/22/19 07:23 97.4 102 20 158/110 98 Physical Exam CONSTITUTIONAL Constitutional: well-developed, well-nourished HENT HENT: normocephalic, atraumatic, oropharynx clear/moist, nose normal HENT L/R: left ext ear normal, right ext ear normal EYES Eyes: PERRL, conjunctivae normal NECK Neck: ROM normal PULMONARY Pulmonary: effort normal, breath sounds normal CARDIOVASCULAR Cardiovascular: regular rhythm, heart sounds normal, capillary refill normal, normal rate GASTROINTESTINAL Abdominal: soft, tender (MOD TENDERNESS MIRZA &RUQ WITHOUT R/G, HYPOACTIVE BOWEL SOUNDS) GENITOURINARY Genitourinary: exam deferred SKIN Skin: warm, dry MUSCULOSKELETAL Musculoskeletal: ROM normal NEUROLOGICAL Neurological: alert, oriented x 3, no gross motor or sensory deficits PSYCHOLOGICAL Psychological: mood/affect normal, judgement normal Results Laboratory Result Diagram: 07/22/1930 07/22/19 0730 Laboratory Laboratory Tests Test 07/22/19 09:00 07/22/19 08:30 07/22/19 08:20 07/22/19 08:11 Lactic Acid Level 1.7 mmol/L (0.5-2.0) 2.2 mmol/L (0.5-2.0) Urine Color Yellow (YELLOW) Urine Clarity Clear (CLEAR) Urine pH 5 (5 - 7) Urine Specific [place] 1.030 (1.010-1.025) Urine Protein Negative (NEGATIVE) Urine Glucose (UA) 1+ (NEGATIVE) Urine Ketones Trace (NEGATIVE) Urine Blood Negative (NEGATIVE) Urine Nitrite Negative (NEGATIVE) Urine Bilirubin Negative (NEGATIVE) Urine Urobilinogen 0.2 mg/dL (0.2 - 1) Urine Leukocyte Esterase Negative (NEGATIVE) Urine RBC 0-5 /HPF (0-5) Urine WBC 0-5 /HPF (0-5) Urine Epithelial Cells None /LPF (NONE) Urine Bacteria None /HPF (NONE) Urine Mucus Few (RARE) Urine Opiates Screen Positive (NEGATIVE) Urine Methadone Screen Negative (NEGATIVE) Urine Barbiturates Screen Negative (NEGATIVE) Urine Phencyclidine Screen Negative (NEGATIVE) Urine Amphetamines Screen Negative (NEGATIVE) Urine Methamphetamines Screen Negative (NEGATIVE) Urine Benzodiazepines Screen Negative (NEGATIVE) Urine Cocaine Screen Positive (NEGATIVE) Urine Cannabinoids Screen Negative (NEGATIVE) Salicylates Level < 5.0 mg/dL (0-30) Acetaminophen Level 4.2 ug/mL (10-30) Ethyl Alcohol Level < 10.0 mg/dL (0.0-10.0) Bedside Glucose 231 mg/dL (70-120) Test 07/22/19 07:30 White Blood Count 6.93 x10e3/uL (4.8-10.8) Red Blood Count 5.06 x10e6/uL (4.3-5.7) Hemoglobin 15.4 g/dL (14.0-18.0) Hematocrit 41.3 % (38.2-49.6) Mean Corpuscular Volume 81.6 fL (81-99) Mean Corpuscular Hemoglobin 30.4 pg (28-32) Mean Corpuscular Hemoglobin Concent 37.3 g/dL (31-35) Red Cell Distribution Width 12.6 % (11.7-14.4) Platelet Count 334 x10e3/uL (140-360) Neutrophils (%) (Auto) 50.1 % (38.7-80.0) Lymphocytes (%) (Auto) 37.4 % (18.0-39.1) Monocytes (%) (Auto) 5.9 % (4.4-11.3) Eosinophils (%) (Auto) 5.2 % (0.0-6.0) Basophils (%) (Auto) 1.0 % (0.0-1.0) Neutrophils # (Auto) 3.5 (2.1-6.9) Lymphocytes # (Auto) 2.6 (1.0-3.2) Monocytes # (Auto) 0.4 (0.2-0.8) Eosinophils # (Auto) 0.4 (0.0-0.4) Basophils # (Auto) 0.1 (0.0-0.1) Absolute Immature Granulocyte (auto 0.03 x10e3/uL (0-0.1) Sodium Level 131 mmol/L (136-145) Potassium Level 4.1 mmol/L (3.5-5.1) Chloride Level 98 mmol/L (98-107) Carbon Dioxide Level 6 mmol/L (22-29) Anion Gap 31.1 mmol/L (8-16) Blood Urea Nitrogen 11 mg/dL (7-26) Creatinine 0.74 mg/dL (0.72-1.25) Estimat Glomerular Filtration Rate > 60 ML/MIN (60-) BUN/Creatinine Ratio 15 (6-25) Glucose Level 231 mg/dL (74-118) Calcium Level 9.8 mg/dL (8.4-10.2) Total Bilirubin 0.4 mg/dL (0.2-1.2) Aspartate Amino Transf (AST/SGOT) 7 IU/L (5-34) Alanine Aminotransferase (ALT/SGPT) 12 IU/L (0-55) Alkaline Phosphatase 112 IU/L (40-150) Total Protein 9.7 g/dL (6.5-8.1) Albumin 4.0 g/dL (3.5-5.0) Globulin 5.7 g/dL (2.3-3.5) Albumin/Globulin Ratio 0.7 (0.8-2.0) Amylase Level 71 U/L (25-125) Lipase 184 U/L (8-78) Laboratory Tests Test 07/22/19 09:00 07/22/19 08:30 07/22/19 08:20 07/22/19 08:11 Urine Color Yellow (YELLOW) Urine Clarity Clear (CLEAR) Urine pH 5 (5 - 7) Urine Specific [place] 1.030 (1.010-1.025) Urine Protein Negative (NEGATIVE) Urine Glucose (UA) 1+ (NEGATIVE) Urine Ketones Trace (NEGATIVE) Urine Blood Negative (NEGATIVE) Urine Nitrite Negative (NEGATIVE) Urine Bilirubin Negative (NEGATIVE) Urine Urobilinogen 0.2 mg/dL (0.2 - 1) Urine Leukocyte Esterase Negative (NEGATIVE) Urine RBC 0-5 /HPF (0-5) Urine WBC 0-5 /HPF (0-5) Urine Epithelial Cells None /LPF (NONE) Urine Bacteria None /HPF (NONE) Urine Mucus Few (RARE) Lactic Acid Level 2.2 mmol/L (0.5-2.0) Urine Opiates Screen Positive (NEGATIVE) Urine Methadone Screen Negative (NEGATIVE) Urine Barbiturates Screen Negative (NEGATIVE) Urine Phencyclidine Screen Negative (NEGATIVE) Urine Amphetamines Screen Negative (NEGATIVE) Urine Methamphetamines Screen Negative (NEGATIVE) Urine Benzodiazepines Screen Negative (NEGATIVE) Urine Cocaine Screen Positive (NEGATIVE) Urine Cannabinoids Screen Negative (NEGATIVE) Salicylates Level < 5.0 mg/dL (0-30) Acetaminophen Level 4.2 ug/mL (10-30) Ethyl Alcohol Level < 10.0 mg/dL (0.0-10.0) Bedside Glucose 231 mg/dL (70-120) Test 07/22/19 07:30 White Blood Count 6.93 x10e3/uL (4.8-10.8) Red Blood Count 5.06 x10e6/uL (4.3-5.7) Hemoglobin 15.4 g/dL (14.0-18.0) Hematocrit 41.3 % (38.2-49.6) Mean Corpuscular Volume 81.6 fL (81-99) Mean Corpuscular Hemoglobin 30.4 pg (28-32) Mean Corpuscular Hemoglobin Concent 37.3 g/dL (31-35) Red Cell Distribution Width 12.6 % (11.7-14.4) Platelet Count 334 x10e3/uL (140-360) Neutrophils (%) (Auto) 50.1 % (38.7-80.0) Lymphocytes (%) (Auto) 37.4 % (18.0-39.1) Monocytes (%) (Auto) 5.9 % (4.4-11.3) Eosinophils (%) (Auto) 5.2 % (0.0-6.0) Basophils (%) (Auto) 1.0 % (0.0-1.0) Neutrophils # (Auto) 3.5 (2.1-6.9) Lymphocytes # (Auto) 2.6 (1.0-3.2) Monocytes # (Auto) 0.4 (0.2-0.8) Eosinophils # (Auto) 0.4 (0.0-0.4) Basophils # (Auto) 0.1 (0.0-0.1) Absolute Immature Granulocyte (auto 0.03 x10e3/uL (0-0.1) Sodium Level 131 mmol/L (136-145) Potassium Level 4.1 mmol/L (3.5-5.1) Chloride Level 98 mmol/L (98-107) Carbon Dioxide Level 6 mmol/L (22-29) Anion Gap 31.1 mmol/L (8-16) Blood Urea Nitrogen 11 mg/dL (7-26) Creatinine 0.74 mg/dL (0.72-1.25) Estimat Glomerular Filtration Rate > 60 ML/MIN (60-) BUN/Creatinine Ratio 15 (6-25) Glucose Level 231 mg/dL (74-118) Calcium Level 9.8 mg/dL (8.4-10.2) Total Bilirubin 0.4 mg/dL (0.2-1.2) Aspartate Amino Transf (AST/SGOT) 7 IU/L (5-34) Alanine Aminotransferase (ALT/SGPT) 12 IU/L (0-55) Alkaline Phosphatase 112 IU/L (40-150) Total Protein 9.7 g/dL (6.5-8.1) Albumin 4.0 g/dL (3.5-5.0) Globulin 5.7 g/dL (2.3-3.5) Albumin/Globulin Ratio 0.7 (0.8-2.0) Amylase Level 71 U/L (25-125) Lipase 184 U/L (8-78) Lab results reviewed: Yes Laboratory comments SINCE PT IS SELF-PAY HE WANTED TO TRY TO KEEP WORKUP TO A MINIMUM, INITIALLY I ONLY ORDERED CBC, CHEM, SHAWN/LIPASE TO R/O PANCREATITIS, ELECTROLYTE ABNL. BUT ON CHEMISTRIES, HE HAS HIGH ANION GAP ACIDOSIS WITH BICARB OF 6 - WILL GET UA, BLOOD&URINE CX'S WITH LACTIC ACID TO R/O SEPSIS, ETHANOL LEVEL, ABG (CONSIDER DKA EVEN THOUGH GLUCOSE ONLY 231), SALICYLATE LEVEL TO R/O INGESTION, UDS TO EVALUATE FOR OTHER TOXINS. I WILL ALSO DO CT ABD/PELVIS AND CXR. Imaging Imaging results reviewed: Yes Impressions EXAMINATION: CHEST SINGLE (PORTABLE) INDICATION: ABD PAIN COMPARISON: Chest radiograph 07/04/19. FINDINGS: TUBES and LINES: None. LUNGS: Low lung volumes with vascular crowding. There is no evidence of pneumonia or pulmonary edema. PLEURA: No pleural effusion or pneumothorax. HEART AND MEDIASTINUM: The cardiomediastinal silhouette is unremarkable. BONES AND SOFT TISSUES: No acute osseous lesion. Soft tissues are unremarkable. UPPER ABDOMEN: No free air under the diaphragm. IMPRESSION: No acute thoracic abnormality. Signed by: Dr. Rina Allen MD on 07/22/2019 10:14 AM EXAM: CT Abdomen and Pelvis WITH contrast INDICATION: Abdominal pain, recent discharge for pancreatitis. COMPARISON: CT abdomen/pelvis 07-04-19. TECHNIQUE: Abdomen and pelvis were scanned utilizing a multidetector helical scanner from the lung base to the pubic symphysis after administration of IV contrast. Coronal and sagittal reformations were obtained. Routine protocol was performed. Scan was performed when during portal venous phase. IV CONTRAST: 100 cc of Isovue-370 ORAL CONTRAST: None COMPLICATIONS: None RADIATION DOSE: Total DLP: 748.7 mGy*cm Estimated effective dose: (DLP x 0.015 x size factor) mSv CTDIvol has been reviewed. It is below the limits set by the Radiation Protocol Committee (RPC). FINDINGS: LINES and TUBES: None. LOWER THORAX: Mild dependent atelectasis. HEPATOBILIARY: Diffuse hepatic steatosis. No evidence of focal lesion. No biliary ductal dilation. GALLBLADDER: Status post cholecystectomy. SPLEEN: No splenomegaly. PANCREAS: There has been interval decrease in pancreatic edema involving the pancreatic head and uncinate process with decreased mild residual peripancreatic stranding near the uncinate process. No evidence of pancreatic hypoenhancement or fluid collection. No focal masses or ductal dilatation. ADRENALS: No adrenal nodules KIDNEYS/URETERS: No evidence of hydronephrosis or stone. Small subcentimeter renal hypodensities are too small to characterize, likely cysts. GI TRACT: No evidence of wall thickening or distension. Appendix is normal. PELVIC ORGANS/BLADDER: Unremarkable. LYMPH NODES: No lymphadenopathy. VESSELS: Unremarkable. PERITONEUM / RETROPERITONEUM: No free air or fluid. BONES AND SOFT TISSUES: No acute osseous abnormality. Mild degenerative disc changes at L3-L4. No suspicious lytic or blastic lesions. Small right greater than left fat-containing inguinal hernias. CONCLUSION: Findings suggestive of resolving or recurrent mild acute edematous pancreatitis. No evidence of pancreatic hypoenhancement or fluid collection. Diffuse hepatic steatosis. Signed by: Dr. Rina Allen MD on 07/22/2019 10:45 AM Procedures 12 Lead ECG Interpretation Vice President Underwriting: Interpreted by ED physician Date: Jul 22, 2019 Time: 08:03 Rhythm: sinus tachycardia Rate: tachycardia (103) QRS axis: normal ST segments normal: Yes T waves normal: Yes Clinical Impression: abnormal ECG (SINUS TACHYCARDIA, O/W NORMAL) ABG Interpretation ABG Results: ABG 1 (pH 7.33, pCO2 47.7, HCO3 25, pO2 98) Interpretation: normal Critical Care Time Subsequent provider I assumed direction of critical care for this patient from another provider of my specialty. Assessment & Plan Reassessment Reassessment I do not feel this patient is septic (he does not have any SIRS criteria except HR>90 which I think was likely related to his pain, but I did give a dose of Zosyn to cover him in case I am wrong), nor do I think he has DKA - his repeat BG is only 184. Salicylates are negative, he is not uremic, ethanol is negative. He is on Metformin which can cause high anion gap lactic acidosis which could explain his abnormal labs. My other thought is that although he denied drug use, he is positive for cocaine and the abnormal labs may be related to some drug ingestion or could be due to bowel ischemia from cocaine ingestion - still awaiting results of CT abd/pelvis - I will admit to hospital for further work-up - spoke with Dr Velasquez on-call Assessment & Plan Final Impression: (1) High anion gap metabolic acidosis (2) Pancreatitis Assessment & Plan admit Depart Disposition: ADMITTED Last Vital Signs Date Time Temp Pulse Resp B/P (MAP) Pulse Ox O2 Delivery O2 Flow Rate FiO2 07/22/19 08:40 91 14 144/102 99 07/22/19 07:23 97.4 Home Meds Reported Medications Acetaminophen With Codeine (TYLENOL WITH CODEINE #3 TABLET) 1 Each Tablet, 300 MG PO Q6H PRN for MODERATE PAIN (4-6), TAB 07/08/19 Metformin Hcl (METFORMIN HCL) 500 Mg Tablet, 500 MG PO BID, #60 TAB 07/04/19 Medications in the ED Pantoprazole Sodium 40 mg ONCE STAT IV Last administered on 07/22/19at 07:53; Admin Dose 40 MG; Start 07/22/19 at 07:32; Stop 07/22/19 at 07:36; Status DC Hydromorphone HCl 1 mg ONCE STAT IV Last administered on 07/22/19at 07:54; Admin Dose 1 MG; Start 07/22/19 at 07:32; Stop 07/22/19 at 07:36; Status DC Ondansetron HCl 4 mg ONCE STAT IV Last administered on 07/22/19at 07:54; Admin Dose 4 MG; Start 07/22/19 at 07:32; Stop 07/22/19 at 07:36; Status DC Sodium Chloride 1,000 ml @ 0 mls/hr Q0M STAT IV Last administered on 07/22/19at 07:53; Admin Dose 999 MLS/HR; Start 07/22/19 at 07:32; Stop 07/22/19 at 07:33; Status DC Sodium Chloride 1,000 ml @ ud STK-MED ONCE .ROUTE ; Start 07/22/19 at 08:25; Stop 07/22/19 at 08:19; Status DC Sodium Chloride 1,000 ml @ 999 mls/hr ONCE ONCE IV Last administered on 07/22/19at 08:43; Admin Dose 999 MLS/HR; Start 07/22/19 at 08:45; Stop 07/22/19 at 09:45 Sodium Chloride 1,000 ml @ 999 mls/hr ONCE ONCE IV Last administered on 07/22/19at 09:08; Admin Dose 999 MLS/HR; Start 07/22/19 at 08:45; Stop 07/22/19 at 09:45 Sodium Chloride 50 ml @ ud STK-MED ONCE .ROUTE ; Start 07/22/19 at 09:13; Stop 07/22/19 at 09:08; Status DC Iopamidol 74,000 mg STK-MED ONCE INJ ; Start 07/22/19 at 09:14; Stop 07/22/19 at 09:08; Status DC Piperacillin Sod/ Tazobactam Sod 50 ml @ 50 mls/hr NOW ONCE IV ; Start 07/22/19 at 10:00; Stop 07/22/19 at 10:59 AV BECKWITH MD Jul 22, 2019 09:36
[2019-07-22] MEDS ORDERED: PIPER-TAZ 3.375 GM 50 ML IV ONE (10:00)
[2019-07-22] MEDS ORDERED: MORPHINE SULFATE INJ 4 MG/ML INJ 1ML IV STA (10:02)
[2019-07-22 10:12] LABS: BLOOD UREA NITROGEN 10 mg/dL (7-26); BUN/CREATININE RATIO 16 (6-25); CALCIUM 8.1 mg/dL (8.4-10.2); CHLORIDE 104 mmol/L (98-107); CREATININE, SERUM 0.63 mg/dL (0.72-1.25); EST GLOMERULAR FILTRATION RATE > 60 ML/MIN (60-); GLUCOSE 184 mg/dL (74-118); POTASSIUM 3.7 mmol/L (3.5-5.1); SODIUM 132 mmol/L (136-145)
[2019-07-22 10:15] LABS: ANION GAP 24.7 mmol/L (8-16); CARBON DIOXIDE 7 mmol/L (22-29)
--- NOTE | 2019-07-22 10:15 | NUR ---
lab called with critical lab value co2 7 notified
--- NOTE | 2019-07-22 10:17 | Diagnostic Imaging Report ---
EXAMINATION: CHEST SINGLE (PORTABLE) INDICATION: ABD PAIN COMPARISON: Chest radiograph 07/04/19. FINDINGS: TUBES and LINES: None. LUNGS: Low lung volumes with vascular crowding. There is no evidence of pneumonia or pulmonary edema. PLEURA: No pleural effusion or pneumothorax. HEART AND MEDIASTINUM: The cardiomediastinal silhouette is unremarkable. BONES AND SOFT TISSUES: No acute osseous lesion. Soft tissues are unremarkable. UPPER ABDOMEN: No free air under the diaphragm. IMPRESSION: No acute thoracic abnormality. Signed by: Dr. Rina Allen MD on 07/22/2019 10:14 AM
[2019-07-22] MEDS ORDERED: INSULIN REGULAR, HUMAN 100 UNIT/1 ML 3ML VIAL IV ONE (10:45)
--- NOTE | 2019-07-22 10:48 | Diagnostic Imaging Report ---
EXAM: CT Abdomen and Pelvis WITH contrast INDICATION: Abdominal pain, recent discharge for pancreatitis. COMPARISON: CT abdomen/pelvis 07-04-19. TECHNIQUE: Abdomen and pelvis were scanned utilizing a multidetector helical scanner from the lung base to the pubic symphysis after administration of IV contrast. Coronal and sagittal reformations were obtained. Routine protocol was performed. Scan was performed when during portal venous phase. IV CONTRAST: 100 cc of Isovue-370 ORAL CONTRAST: None COMPLICATIONS: None RADIATION DOSE: Total DLP: 748.7 mGy*cm Estimated effective dose: (DLP x 0.015 x size factor) mSv CTDIvol has been reviewed. It is below the limits set by the Radiation Protocol Committee (RPC). FINDINGS: LINES and TUBES: None. LOWER THORAX: Mild dependent atelectasis. HEPATOBILIARY: Diffuse hepatic steatosis. No evidence of focal lesion. No biliary ductal dilation. GALLBLADDER: Status post cholecystectomy. SPLEEN: No splenomegaly. PANCREAS: There has been interval decrease in pancreatic edema involving the pancreatic head and uncinate process with decreased mild residual peripancreatic stranding near the uncinate process. No evidence of pancreatic hypoenhancement or fluid collection. No focal masses or ductal dilatation. ADRENALS: No adrenal nodules KIDNEYS/URETERS: No evidence of hydronephrosis or stone. Small subcentimeter renal hypodensities are too small to characterize, likely cysts. GI TRACT: No evidence of wall thickening or distension. Appendix is normal. PELVIC ORGANS/BLADDER: Unremarkable. LYMPH NODES: No lymphadenopathy. VESSELS: Unremarkable. PERITONEUM / RETROPERITONEUM: No free air or fluid. BONES AND SOFT TISSUES: No acute osseous abnormality. Mild degenerative disc changes at L3-L4. No suspicious lytic or blastic lesions. Small right greater than left fat-containing inguinal hernias. CONCLUSION: Findings suggestive of resolving or recurrent mild acute edematous pancreatitis. No evidence of pancreatic hypoenhancement or fluid collection. Diffuse hepatic steatosis. Signed by: Dr. Rina Allen MD on 07/22/2019 10:45 AM
[2019-07-22 10:52] LABS: CREATINE KINASE 40 IU/L (30-200)
[2019-07-22] MEDS ORDERED: DEXTROSE 50% SYRINGE 50 ML IV PRN (11:15)
--- OUTSIDE RECORDS SUMMARY | 2019-07-22 11:27 | XMS REPORT | Clinical Summary ---
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 Role Phone Trung Bradshaw MD PCP [...] Care Team Description Date Type Specialty Doctor, [facility] 07/16/2019 E-Visit Trung Bradshaw MD Rash and other nonspecific skin eruption (Primary Dx) 06/14/2019 Telemedicine Family Practice Trugn Bradshaw MD 09/13/2018 Ancillary Radiology Procedure Trung [...] MD, 09/13/2018 1:59 PM Performing Organization Address City/[facility] Ph one Number SMS * Hemoglobin A1C (09/13/2018 11:59 AM CDT) Hemoglobin A1c 7.6 (H) 4.3 - 6.1 % [facility] Estimated 171 (H) 70 - 110 mg/dL [facility] Average Glucose LABORATORY Specimen Blood Performing Organization Address [facility] Ph one Number [facility] [address] [place] [address] [phone] * Comprehensive Metabolic Panel (09/13/2018 11:59 AM [...] [facility] Specimen Blood Performing Organization Address [facility] Ph one Number [facility] [address] [place] [address] * Lipid Profile (09/13/2018 11:59 AM CDT) [...] Number [facility] [address] [place] [address] * OPHTHALMOLOGY RETINAL SCAN (09/13/2018 11:54 AM [...] M (: 1985, ) presented to [facility] on 09-13-2018 for a retinal imaging study [...] Retinopathy. This result was electronically signed Trev Gloden MD, , Taxonomy: [id number] on 09-13-2018 05:0 4:34 [facility] time. NOTE: Any pathology noted on this jerzy betic retinal evaluation should be confirmed by an appropriate ophthalmic examination. Performing Organization Address [facility] Ph one Number IRIS * POCT GLUCOSE POC docked device (07/26/2018 5:04 PM CDT) Glucose POC 154 (H) 74 - 106 mg/dL [facility] Specimen Blood Performing Organization Address [facility] [place] [address] [facility] [address] [place] [address] after 07/21/2018 Insurance Type Payer Benefit Subscriber ID Effective Phone Address Plan / Dates Group [employer] [place] x[place] 2019- [address] [employer]ILY [id number] [place] [address] [place] [phone] [facility] PLAN FINANCIAL xxxxxxx 2019- [phone] [id number] [place] [address] [facility] PLAN FINANCIAL xxxxxxxx 2019- [phone] [address] [place] [address]
--- OUTSIDE RECORDS SUMMARY | 2019-07-22 11:28 | XMS REPORT | Continuity of Care Document ---
Author Author [facility] t Organization [facility] Address [address] [place] [address] Phone Unavailable Care Team Providers Care Journeyman Lineman Name Role Phone NO, PCP PCP Unavailable Reina BECKWITH Attphys Unavailable Doctor, [facility] Attphys Unavailable Leeann PEREZ, P Trung Attphys Jacinda PRINCIPAL IOS DEVELOPERDominga Attphys Payers Payer Name Policy Type Policy Number Effective Date Expiration Date S saqib [place] [employer] [place] [facility] [employer] [id number] [address], [place] [address] xxxxxxx 2019 00:00:00 2020 23:59:59 H [facility] PLANFINANCIAL ASSISTANCE PROGRAMxxx [id number] [place] [address] xxxxxxx 2019 00:00:00 03-12 23:59:59 [facility] Problems Condition Name Condition Details Condition Category Status Onset Date Resolution Date Last Treatment Date Treating Clinician Comments Source Essential hypertension Essential hypertension Disease Active 2017-11-10 00:00:00 [facility] Alcohol-induced acute pancreatitis Problem Active [facility] Pancreatitis Problem Active [facility] Allergies, Adverse Reactions, Alerts Allergy Name Allergy Type Status Severity Reaction(s) Onset Date Inacti ve Date Treating Clinician Comments Source No Known Allergies DA Active U 2019-04-11 00:00:00 [facility] No Known Allergies DA Active U 2019-03-01 00:00:00 [facility] No Known Allergies DA Active U 2016-03-13 00:00:00 [facility] Social History Social Habit Start Date Stop Date Quantity Comments Source Sex Assigned At Located within [facility] Alcohol intake 2018-07-26 00:00:00 2018-07-26 00:00:00 [facility] SDOH Food Worry 2017-11-10 00:00:00 2017-11-10 00:00:00 1 [facility] SDOH Food Scarcity 2017-11-10 00:00:00 2017-11-10 00:00:00 1 [facility] Alcohol Comment 2017-11-10 00:00:00 2017-11-10 00:00:00 vodka [facility] Smoking Status Start Date Stop Date Source Current every day smoker 2018-07-26 00:00:00 Located [facility] Medications Ordered Medication Name Filled Medication Name Start Date Stop Da te Current Medication? Ordering Clinician Indication Dosage Frequency Signature (SIG) Comments Components Source atorvastatin (LIPITOR) 20 mg tablet 2018-09-13 00:00:0 0 2019-06-14 00:00:00 No Hyperlipidemia, unspecified hyperlipidemia type 20mg Take 1 tablet by mouth at bedtime nightly. [facility] fenofibrate nanocrystallized (TRICOR) 145 mg tablet 2018-09-13 00:00:00 2019-06-14 00:00:00 No Hypertriglyceridemia 145mg QD Take 1 tablet by mouth daily. [facility] lisinopril (PRINIVIL) 5 mg tablet 2018-09-13 00:00:00 2019 00:00:00 No Essential hypertension 5mg QD Take 1 tablet by mouth park giang [facility] metFORMIN (GLUCOPHAGE) 500 mg tablet 2018-09-13 00:00: 00 2019-06-14 00:00:00 No Type 2 diabetes mellitus wit hout complication, with long-term current use of insulin 500mg Take 1 tablet by vandana th 2 times daily (with meals) For diabetes. [facility] ibuprofen (MOTRIN) 400 mg tablet 2018-09-13 00:00:00 2019-05 00:00:00 No Elbow pain, chronic, left 400mg Take 1 tablet by mouth every 12 hours as needed for Pain (take with food). [facility] tropicamide (MYDRIACYL) 0.5 % ophthalmic solution 2018-09-13 00:00:00 2018-09-13 23:59:00 No Type 2 diabetes ana itus without complication, with long-term current use of insulin 1[drp] Instill 1 Drop in each eye once as needed for up to 1 dose (for poor retina scan image). [facility] metFORMIN (GLUCOPHAGE) 500 mg tablet 2018-09-13 00:00: 00 2018-09-13 00:00:00 No Type 2 diabetes mellitus wit hout complication, with long-term current use of insulin 500mg Take 1 tablet by vandana th 2 times daily (with meals) For diabetes. [facility] atorvastatin (LIPITOR) 20 mg tablet 2018-09-13 00:00:0 0 2018-09-13 00:00:00 No Hyperlipidemia, unspecified hyperlipidemia type 20mg Take 1 tablet by mouth at bedtime nightly. [facility] lisinopril (PRINIVIL) 5 mg tablet 2018-09-13 00:00:00 2018 00:00:00 No Essential hypertension 5mg QD Take 1 tablet by mouth park giang [facility] fenofibrate nanocrystallized (TRICOR) 145 mg tablet 2018-09-13 00:00:00 2018-09-13 00:00:00 No Hypertriglyceridemia 145mg QD Take 1 tablet by mouth daily. [facility] ibuprofen (MOTRIN) 800 mg tablet 2018-07-26 00:00:00 2018-08 00:00:00 No Lateral epicondylitis of left elbow 800mg Take 1 tablet by mouth every 8 hours as needed for Pain. [facility] metFORMIN (GLUCOPHAGE) 500 mg tablet 2017-12-19 00:00: 00 2018-09-13 00:00:00 No Type 2 diabetes mellitus wit hout complication, with long-term current use of insulin 500mg Take 1 tablet by vandana th 2 times daily (with meals) For diabetes. [facility] atorvastatin (LIPITOR) 20 mg tablet 2017-12-19 00:00:0 0 2018-09-13 00:00:00 No Hyperlipidemia, unspecified hyperlipidemia type 20mg Take 1 tablet by mouth at bedtime nightly. [facility] lancets 28 gauge 2017-11-10 00:00:00 Yes Type 2 diabetes mellitus without complication, with long-term current use of insulin 100{each} Use 2 times daily as needed [facility] blood glucose (PRECISION XTRA TEST STRIPS) test strips 2017-11-10 00:00:00 Yes Type 2 diabetes mellitus wit hout complication, with long-term current use of insulin 1{each} Q.5D Check blood glucose 2 times daily [facility] lisinopril (PRINIVIL) 5 mg tablet 2017-11-10 00:00:00 2018 00:00:00 No Essential hypertension 5mg QD Take 1 tablet by mouth park giang [facility] INSULIN SYRINGE 0.5mL 30GX5/16" (MONOJEC T ULTRACOMFORT INSULIN SYR 0.5ML 30GX5/16") syringe-needle 2017-11-10 00:00:00 2018-09-13 00:00:00 No Type 2 diabetes mellitus without complication, with long-term current use of insulin Use to inject medication 5 times daily. Use a new syringe each t marshal. [facility] blood glucose meter 2017-09-23 00:00:00 Yes Newly diagnosed diabetes Use as directed.. [facility] Acetaminophen With Codeine (Tylenol With Codeine #3 Ta blet) 1 Each TABLET Acetaminophen With Codeine (Tylenol With Codeine #3 Tablet) 1 Each TABLET Yes 300 Every 6 Hours as needed for Moderate Wang n (4-6) [facility] Metformin Hcl Metformin Hcl Yes 500 Twice A Day [facility] Immunizations Ordered Immunization Name Filled Immunization Name Date Status Comments Source Influenza, Vaccine<FLUCELVAX>(Multi-Dose) 2017-12-19 00:00 :00 Completed [facility] Tdap (Tetanus Toxoid, Reduced Diphtheria Toxoid And Acellular Pertussis, Absorbed) 2017-11-10 00:00:00 Completed [facility] ealt PPV 23 (Pneumococcal Polysaccharide 23 Valent) 2017-10 00:00:00 Completed [facility] Vital Signs Vital Name Observation Time Observation Value Comments Source Body Temperature 2019-07-08 12:20:00 97.3 [degF] [facility] BMI (Body Mass Index) 2019-07-07 01:08:00 39.5 kg/m2 [facility] Weight 2019-07-04 18:28:00 230 [lb_av] [facility] Heart rate 2018-09-13 11:36:00 98 /min manual radial pulse H [facility] Systolic blood pressure 2018-09-13 10:44:00 130 mm[Hg] [facility] Diastolic blood pressure 2018-09-13 10:44:00 85 mm[Hg] [facility] Body temperature 2018-09-13 10:44:00 36.94 Lizette Rehana is [facility] Respiratory rate 2018-09-13 10:44:00 18 /min Rehana is [facility] Body height 2018-09-13 10:44:[address] [facility] Body weight 2018-09-13 10:44:[address] [facility] BMI 2018-09-13 10:44:00 41.50 kg/m2 [facility] Oxygen saturation in Arterial blood by Pulse oximetry 07-26 15:25:00 100 /min [facility] Procedures Procedure Date / Time Performed Performing Clinician [facility] e Computed tomography of abdomen and pelvis with contrast 00:00:00 [facility] XRAY ELBOW 3 VIEWS MIN 2018-09-13 17:55:46 [facility] LIPID PROFILE 2018-09-13 16:59:00 Trung Bradshaw [facility] HEMOGLOBIN A1C 2018-09-13 16:59:00 Trung Bradshaw [facility] COMPREHENSIVE METABOLIC PANEL 2018-09-13 16:59:00 Trung Bradshaw [facility] OPHTHALMOLOGY RETINAL SCAN 2018-09-13 16:54:02 Trung Bradshaw [facility] GLUCOSE POC 2018-07-26 22:04:00 [facility] Planned Activity Planned Date Details Comments Source Future Scheduled Test 2019-11-15 00:00:00 IMM Influenza Seas onal Nov to April (>/= 19 yrs) [code = IMM Influenza Seasonal Nov to April (>/= 19 yrs)] [facility] Scheduled Test 2019-09-14 00:00:00 DM HGBA1C (Yearly) [code = DM HGBA1C (Yearly)] [facility] Scheduled Test 2019-09-14 00:00:00 DM Retinal Exam (Y early) [code = DM Retinal Exam (Yearly)] [facility] Scheduled Test 2018-12-19 00:00:00 DM Foot Exam (Year ly) [code = DM Foot Exam (Yearly)] [facility] Scheduled Test 2018-11-10 00:00:00 DM Microalbumin Ur ine Scrn (Yearly) [code = DM Microalbumin Urine Scrn (Yearly)] [facility] Instructions Pancreatitis [facility] Encounters Start Date/Time End Date/Time Encounter Type Admission Type Attendi [facility] Care Department Encounter ID Source 2019-07-04 15:34:00 2019-07-08 15:41:00 Discharged Inpatient 1 AV BECKWITH [facility] [id number] [facility] 2019-02-17 04:44:00 2019-02-17 00:16:00 Inpatient [id number] 2018-11-13 00:00:00 2018-11-13 00:00:[address] [facility] [id number] [facility] 2018-09-13 12:52:54 2018-09-13 12:52:[address] [facility] [id number] [facility] 2018-09-13 11:59:42 2018-09-13 11:59:[address] [facility] [id number] [facility] 2018-09-13 11:50:56 2018-09-13 11:50:[address] [facility] [id number] [facility] 2018-09-13 10:43:26 2018-09-13 10:43:[address] [facility] [id number] [facility] 2018-09-13 00:00:00 2018-09-13 00:00:[address] [facility] [id number] [facility] 2018-07-26 15:23:18 2018-07-26 15:23:[address] [facility] [id number] [facility] 2018-02-21 00:00:00 2018-02-21 00:00:[address] [facility] [id number] [facility] 2018-02-09 08:43:51 2018-02-09 08:43:[address] [facility] [id number] [facility] 2018-01-16 00:00:00 2018-01-16 00:00:[address] [facility] [id number] [facility] 2017-12-28 00:00:00 2017-12-28 00:00:[address] [facility] [id number] [facility] 2017-12-19 15:16:04 2017-12-19 15:16:[address] [facility] [id number] [facility] 2017-12-13 00:00:00 2017-12-13 00:00:[address] [facility] [id number] [facility] 2017-12-13 00:00:00 2017-12-13 00:00:[address] [facility] [id number] [facility] 2017-12-13 00:00:00 2017-12-13 00:00:[address] [facility] [id number] [facility] 2017-11-21 00:00:00 2017-11-21 00:00:[address] [facility] [id number] [facility] 2017-11-21 00:00:00 2017-11-21 00:00:[address] [facility] [id number] [facility] 2017-11-10 15:37:03 2017-11-10 15:37:[address] [facility] [id number] [facility] 2017-11-10 15:32:56 2017-11-10 15:32:[address] [facility] [id number] [facility] 2017-11-10 13:32:59 2017-11-10 13:32:[address] [facility] [id number] [facility] 2017-09-23 14:38:25 2017-09-23 14:38:[address] [facility] [id number] [facility] Results Test Description Test Time Test Comments Results Result Comments Source CT ABDOMEN/PELVIS W 2019-07-22 10:37:00 [place] [address] Patient Name: DEANDRE PHILIP MR #: [id number] : 1985 Age/Sex: 34/M Req #: [id number] Adm Physician: Ordered by: AV BECKWITH MD Report #: [id number] Location: Room/Bed: Procedure: [id number] CT/CT ABDOMEN/PELVIS W Exam Date: 07/22/19 Exam Time: 920 REPORT STATUS: Signed EXAM: CT Abdomen and Pelvis WITH contrast INDICATION: Abdominal pain, recent discharge for pancreatitis. COMPARISON: CT abdomen/pelvis 07-04-19. TECHNIQUE: Abdomen and pelvis were scanned utilizing a multidetector helical scanner from the lung base to the pubic symphysis after administration of IV contrast. Coronal and sagittal reformations were obtained. Routine protocol was performed. Scan was performed when during portal venous phase. IV CONTRAST: 100 cc of Isovue-370 ORAL CONTRAST: None COMPLICATIONS: None RADIATION DOSE: Total DLP: 748.7 mGy*cm Estimated effective dose: (DLP x 0.015 x size factor) mSv CTDIvol has been reviewed. It is below the limits set by the Radiation Protocol Committee (RPC). FINDINGS: LINES and TUBES: None. LOWER THORAX: Mild dependent atelectasis. HEPATOBILIARY: Diffuse hepatic steatosis. No evidence of focal lesion. No biliary ductal dilation. GALLBLADDER: Status post cholecystectomy. SPLEEN: No splenomegaly. PANCREAS: There has been interval decrease in pancreatic edema involving the pancreatic head and uncinate process with decreased mild residual peripancreatic stranding near the uncinate process. No evidence of pancreatic hypoenhancement or fluid collection. No focal masses or ductal dilatation. ADRENALS: No adrenal nodules KIDNEYS/URETERS: No evidence of hydronephrosis or stone. Small subcentimeter renal hypodensities are too small to characterize, likely cysts. GI TRACT: No evidence of wall thickening or distension. Appendix is normal. PELVIC ORGANS/BLADDER: Unremarkable. LYMPH NODES: No lymphadenopathy. VESSELS: Unremarkable. PERITONEUM / RETROPERITONEUM: No free air or fluid. BONES AND SOFT TISSUES: No acute osseous abnormality. Mild degenerative disc changes at L3- L4. No suspicious lytic or blastic lesions. Small right greater than left fat- containing inguinal hernias. CONCLUSION: Findings suggestive of resolving or recurrent mild acute edematous pancreatitis. No evidence of pancreatic hypoenhancement or fluid collection. Diffuse hepatic steatosis. Signed by: Dr. Josee Melendrez MD on 07/22/2019 10:45 AM Dictated By: OJSEE MELENDREZ MD 1045 Transcribed By: BHAKTI on 07/22/19 1045 COPY TO: AV BECKWITH MD CHEST SINGLE (PORTABLE) 2019-07-22 10:12:00 [place] [address] Patient Name: DEANDRE PHILIP MR #: [id number] : 1985 Age/Sex: 34/M Req #: [id number] Adm Physician: Ordered by: AV BECKWITH MD Report #: [id number] Location: ER Room/Bed: Procedure: [id number] DX/CHEST SINGLE (PORTABLE) Exam Date: 07/22/19 Exam Time: 920 REPORT STATUS: Signed EXAMINATION: CHEST SINGLE (PORTABLE) INDICATION: ABD PAIN COMPARISON: Chest radiograph 07/04/19. FINDINGS: TUBES and LINES: None. LUNGS: Low lung volumes with vascular crowding. There is no evidence of pneumonia or pulmonary edema. PLEURA: No pleural effusion or pneumothorax. HEART AND MEDIASTINUM: The cardiomediastinal silhouette is unremarkable. BONES AND SOFT TISSUES: No acute osseous lesion. Soft tissues are unremarkable. UPPER ABDOMEN: No free air under the diaphragm. IMPRESSION: No acute thoracic abnormality. Signed by: Dr. Josee Melendrez MD on 07/22/2019 10:14 AM Dictated By: JOSEE MELENDREZ MD 1014 Transcribed By: BHAKTI on 07/22/19 1014 COPY TO: AV BECKWITH MD Serum or plasma sodium measurement (moles/volume) 2019-07-08 14:34:00 Test Item Sodium Level (test code = 2951-2) 138 136-145 [facility] potassium measurement (moles/volume)2019-07-08 14:34:00* Test Item Value Reference Range Interpretation Comments Potassium Level (test code = 2823-3) 4.4 3.5-5.1 [facility] or plasma chloride measurement (moles/volume)2019-07-08 14:34:00* Test Item Value Reference Range Interpretation Comments Chloride Level (test code = 2075-0) 100 98-107 [facility] or plasma carbon dioxide, total measurement (moles/volume)2019-07-08 14:34:00* Test Item Value Reference Range Interpretation Comments Carbon Dioxide Level (test code = 2028-9) 29 22-29 [facility] or plasma anion [id number] 14:34:00* Test Item Value Reference Range Interpretation Comments Anion Gap (test code = 64504-0) 13.4 8-16 [facility] or plasma urea nitrogen measurement (mass/volume)2019-07-08 14:34:00* Test Item Value Reference Range Interpretation Comments Blood Urea Nitrogen (test code = 3094-0) 7 7-26 [facility] or plasma creatinine measurement (mass/volume)2019-07-08 14:34:00* Test Item Value Reference Range Interpretation Comments Creatinine (test code = 2160-0) 0.77 0.72-1.25 [facility] or plasma urea nitrogen/creatinine mass vyyvh0538-17-41 14:34:00* Test Item Value Reference Range Interpretation Comments BUN/Creatinine Ratio (test code = 3097-3) 9 6-25 [facility] filtration rate (GFR) gqghxzexjzoho2981-25-84 14:34:00* Test Item Value Reference Range Interpretation Comments Estimat Glomerular Filtration Rate (test code = 512795692) > 60 >60 Ranges were taken from the National Kidney Disease Education Program and the [facility] literature.Reference ranges:60 or greater: Hjjtkm78-76 ( for 3 consecutive months): Chronic kidney disease 15 or less: Kidney failureCHRISTUS [facility]ohn [facility] – KlebergGlucose wjohsktjjbb8819-17-82 14:34:00* Test Item Value Reference Range Interpretation Comments Glucose Level (test code = XBQ3526) 256 74-118 [facility] or plasma calcium measurement (mass/volume)2019-07-08 14:34:00* Test Item Value Reference Range Interpretation Comments Calcium Level (test code = 88544-8) 10.1 8.4-10.2 [facility]berg[facility]illary blood glucose measurement by glucometer (mass/volume)2019-07-08 07:49:00* Test Item Value Reference Range Interpretation Comments Bedside Glucose (test code = 18084-4) 134 70-120 Meter ID: [id number] R. Darnall Army Medical CenterBlood leukocytes automated count (number/volume)2019-07-07 05:30:00* Test Item Value Reference Range Interpretation Comments White Blood Count (test code = 6690-2) 4.71 4.8-10.8 [facility] erythrocytes automated count (number/volume)2019-07-07 05:30:00* Test Item Value Reference Range Interpretation Comments Red Blood Count (test code = 789-8) 4.86 4.3-5.7 [facility] hemoglobin measurement (moles/volume)2019-07-07 05:30:00* Test Item Value Reference Range Interpretation Comments Hemoglobin (test code = 51550-5) 13.5 14.0-18.0 [facility]bergAutomated blood hematocrit (volume fraction)2019-07-07 05:30:00* Test Item Value Reference Range Interpretation Comments Hematocrit (test code = 4544-3) 41.9 38.2-49.6 [facility]bergAutomated erythrocyte mean corpuscular aihwqt7452-48-83 05:30:00* Test Item Value Reference Range Interpretation Comments Mean Corpuscular Volume (test code = 787-2) 86.2 81-99 [facility]berg[facility] erythrocyte mean corpuscular hemoglobin (mass per erythrocyte)2019-07-07 05:30:00* Test Item Value Reference Range Interpretation Comments Mean Corpuscular Hemoglobin (test code = 785-6) 27.8 28-32 [facility]berg[facility] erythrocyte mean corpuscular hemoglobin concentration measurement (mass/volume)2019-07-07 05:30:00* Test Item Value Reference Range Interpretation Comments Mean Corpuscular Hemoglobin Concent (test code = 786-4) 32.2 31-35 [facility]bergRDW EcvDp-Bqg0865-57-23 05:30:00* Test Item Value Reference Range Interpretation Comments Red Cell Distribution Width (test code = 95819-8) 13.2 11.7 -14.4 [facility]berg[facility] blood platelet count (count/volume)2019-07-07 05:30:00* Test Item Value Reference Range Interpretation Comments Platelet Count (test code = 777-3) 248 140-360 [facility]bergAutom[facility] blood segmented neutrophil count as percentage of total lsytizcsej5369-09-15 05:30:00* Test Item Value Reference Range Interpretation Comments Neutrophils (%) (Auto) (test code = 83643-2) 48.9 38.7-80.0 [facility]berg[facility] blood lymphocyte count as percentage ot total ofogewfwwq7758-39-89 05:30:00* Test Item Value Reference Range Interpretation Comments Lymphocytes (%) (Auto) (test code = 736-9) 32.9 18.0-39.1 [facility]berg[facility] blood monocyte count as percentage of total vjjfeeksor6849-96-56 05:30:00* Test Item Value Reference Range Interpretation Comments Monocytes (%) (Auto) (test code = 5905-5) 9.3 4.4-11.3 [facility]berg[facility] blood eosinophil count as percentage of total sedukhxjtt6328-43-43 05:30:00* Test Item Value Reference Range Interpretation Comments Eosinophils (%) (Auto) (test code = 713-8) 7.9 0.0-6.0 [facility]berg[facility] blood basophil count as percentage of total gdihcokiwp0607-13-34 05:30:00* Test Item Value Reference Range Interpretation Comments Basophils (%) (Auto) (test code = 706-2) 0.6 0.0-1.0 [facility]bergFluoroscopic procedure less than one hour crktrrvc7600-99-69 05:30:00* Test Item Value Reference Range Interpretation Comments IM GRANULOCYTES % (test code = IM GRANULOCYTES %) 0.4 0.0- 1.0 [facility]berg[facility] blood neutrophil count 2019-07-07 05:30:00* Test Item Value Reference Range Interpretation Comments Neutrophils # (Auto) (test code = 751-8) 2.3 2.1-6.9 [facility] lymphocytes count (number/volume) 2019-07-07 05:30:00* Test Item Value Reference Range Interpretation Comments Lymphocytes # (Auto) (test code = 37797-9) 1.6 1.0-3.2 [facility] monocytes automated count (number/volume)2019-07-07 05:30:00* Test Item Value Reference Range Interpretation Comments Monocytes # (Auto) (test code = 742-7) 0.4 0.2-0.8 [facility]berg[facility] blood eosinophil count 2019-07-07 05:30:00* Test Item Value Reference Range Interpretation Comments Eosinophils # (Auto) (test code = 711-2) 0.4 0.0-0.4 [facility]berg[facility] blood basophil count (count/volume)2019-07-07 05:30:00* Test Item Value Reference Range Interpretation Comments Basophils # (Auto) (test code = 704-7) 0.0 0.0-0.1 [facility]bergFluoroscopic procedure less than one hour rxsafhnk2119-26-13 05:30:00* Test Item Value Reference Range Interpretation Comments Absolute Immature Granulocyte (auto (laron t code = Absolute Immature Granulocyte (auto) 0.02 0-0.1 [facility] Americaerum or plasma lipase measurement (enzymatic activity/volume)2019-07-07 05:30:00* Test Item Value Reference Range Interpretation Comments Lipase (test code = 3040-3) 65 8-78 [facility]bergFluoroscopic procedure less than one hour optehcfc4611-54-61 05:20:00* Test Item Value Reference Range Interpretation Comments Hemoglobin A1c Percent (test code = Hemoglobin A1c Percent) 10.7 4.0-7.0 [facility] Americaerum or plasma total bilirubin measurement (mass/volume)2019-07-05 05:20:00* Test Item Value Reference Range Interpretation Comments Total Bilirubin (test code = 1975-2) 0.7 0.2-1.2 [facility]bergFluoroscopic procedure less than one hour ntqambyf9885-66-41 05:20:00* Test Item Value Reference Range Interpretation Comments Aspartate Amino Transf (AST/SGOT) (test code = Aspartate Amino Transf (AST/SGOT)) 29 5-34 [facility] Americaerum or plasma alanine aminotransferase measurement (enzymatic activity/volume)2019-07-05 05:20:00* Test Item Value Reference Range Interpretation Comments Alanine Aminotransferase (ALT/SGPT) (test code = 1742-6) 36 0-55 [facility] America[facility]um or plasma protein measurement (mass/volume)2019-07-05 05:20:00* Test Item Value Reference Range Interpretation Comments Total Protein (test code = 2885-2) 6.3 6.5-8.1 [facility] America[facility]um or plasma albumin measurement (mass/volume)2019-07-05 05:20:00* Test Item Value Reference Range Interpretation Comments Albumin (test code = 1751-7) 3.2 3.5-5.0 [facility] globulin measurement (mass/volume) 2019-07-05 05:20:00* Test Item Value Reference Range Interpretation Comments Globulin (test code = 33941-2) 3.1 2.3-3.5 [facility] or plasma albumin/globulin mass [id number] 05:20:00* Test Item Value Reference Range Interpretation Comments Albumin/Globulin Ratio (test code = 1759-0) 1.0 0.8-2.0 [facility] or plasma alkaline phosphatase measurement (enzymatic activity/volume)2019-07-05 05:20:00* Test Item Value Reference Range Interpretation Comments Alkaline Phosphatase (test code = 6768-6) 104 40-150 [facility] America[facility] or plasma thyrotropin measurement by detection limit <= 0.005 miu/l (units/volume)2019-07-05 05:20:00* Test Item Value Reference Range Interpretation Comments Thyroid Stimulating Hormone (TSH) (test code = 12745-4) 2.097 0.350-4.940 [facility]bergFluoroscopic procedure less than one hour tefujnus3288-00-71 18:03:00* Test Item Value Reference Range Interpretation [...] complexity tests.Testing performed by [facility] [address] [phone] Director: Orlando Hope M.D.CLIA # [id number] [facility] RegionalU[facility] color uktouefxroovh7915-28-63 16:11:00* Test Item Value Reference Range Interpretation Comments Urine Color (test code = 5778-6) YELLOW YELLOW [facility]bergUrine aiephxb8168-63-01 16:11:00* Test Item Value Reference Range Interpretation Comments Urine Clarity (test code = 28892-6) SL CLOUDY CLEAR [facility] Americapecific gravity of Urine by Test strip 2019-07-04 16:11:00* Test Item Value Reference Range Interpretation Comments Urine Specific Howard (test code = 5811-5) 1.020 1.010-1.02 5 [facility]bergU[facility] pH measurement by automated test luezk4866-51-98 16:11:00* Test Item Value Reference Range Interpretation Comments Urine pH (test code = 32222-6) 5 5-7 [facility]bergU[facility] leukocyte esterase detection by celrqkbi8385-36-80 16:11:00* Test Item Value Reference Range Interpretation Comments Urine Leukocyte Esterase (test code = 5799-2) NEGATIVE NEGATIVE [facility]bergUrine nitrite tthyrojrv7559-70-19 16:11:00* Test Item Value Reference Range Interpretation Comments Urine Nitrite (test code = 89718-8) NEGATIVE NEGATIVE [facility] protein measurement by test strip (mass/volume)2019-07-04 16:11:00* Test Item Value Reference Range Interpretation Comments Urine Protein (test code = 5804-0) 1+ NEGATIVE [facility]bergU[facility] glucose oavwfolvr4496-16-72 16:11:00* Test Item Value Reference Range Interpretation Comments Urine Glucose (UA) (test code = 2349-9) 2+ NEGATIVE [facility]bergU[facility] ketones detection by automated test nvpwx0366-47-70 16:11:00* Test Item Value Reference Range Interpretation Comments Urine Ketones (test code = 27261-7) 2+ NEGATIVE [facility]bergUrine opiates screening peoo2664-91-86 16:11:00* Test Item Value Reference Range Interpretation Comments Urine Opiates Screen (test code = 14416-8) POSITIVE NEGATIVE ALL TESTS PERFORMED MANUALLY ON Maps In[employer]ed TOX/SEE TEST This test provides only a sc reen. Positive results should be repeated by a confirmatory test.[facility] KlebergBarbiturates screen, ioytj5365-52-26 16:11:00* Test Item Value Reference Range Interpretation Comments Urine Barbiturates Screen (test code = 276443390) NEGATIVE NEGA TIVE [facility]bergUrine phencyclidine detection by screening bpkyev2186-71-76 16:11:00* Test Item Value Reference Range Interpretation Comments Urine Phencyclidine Screen (test code = 55155-1) NEGATIVE NEGAT MIGUEL [facility]bergUrine amphetamines detection by screen method > 1000 ng/cD1515-23-10 16:11:00* Test Item Value Reference Range Interpretation Comments Urine Amphetamines Screen (test code = 24548-0) NEGATIVE NEGATI VE [facility]bergFluoroscopic procedure less than one hour xtcejsvi2052-08-79 16:11:00* Test Item Value Reference Range Interpretation Comments Urine Methamphetamines Screen (test code = Urine Metha mphetamines Screen) NEGATIVE NEGATIVE [facility]bergUrine benzodiazepines detection by screening uqrjfe8901-19-27 16:11:00* Test Item Value Reference Range Interpretation Comments Urine Benzodiazepines Screen (test code = 02414-7) NEGATIVE NEG ATIVE [facility]bergU[facility] cocaine measurement (mass/volume) 2019-07-04 16:11:00* Test Item Value Reference Range Interpretation Comments Urine Cocaine Screen (test code = 3398-5) NEGATIVE NEGATIVE [facility]berg[facility] cannabinoids detection by screening rtxyie7525-74-22 16:11:00* Test Item Value Reference Range Interpretation Comments Urine Cannabinoids Screen (test code = 89563-2) NEGATIVE NEGATI VE THESE RESULTS ARE FOR MEDICAL TREATMENT ONLYTHIS REPORT CONTAINS UNCONFIR MED SCREENING RESULTS*POSITIVE RESULTS WILL BE CONFIRMED BY REFERENCE LAB UPON R EQUEST CUT-OFFDRUG CLASS CONCENTRATION ng/mLAmphetamines 1000Methamphetamines 1000Cocaine 300Opiate 300Phencyc lidine 25Cannabinoid 50Barbiturates 300Benzodiazepine 300Methadone 300[facility]bergUrine methadone uxqczp9947-52-56 16:11:00* Test Item Value Reference Range Interpretation Comments Urine Methadone Screen (test code = 74686-7) NEGATIVE NEGATIVE THESE RESULTS ARE FOR MEDICAL TREATMENT ONLYTHIS REPORT CONTAINS UNCONFIR MED SCREENING RESULTS*POSITIVE RESULTS WILL BE CONFIRMED BY REFERENCE LAB UPON R EQUEST CUT-OFFDRUG CLASS CONCENTRATION ng/mLAmphetamines 1000Methamphetamines 1000Cocaine Metabolite 300Opiate 300Phencyc lidine 25Cannabinoid 50Barbiturates 300Benzodiazepine 300Methadone 300[facility]bergUrine urobilinogen measurement by test strip (mass/volume)2019-07-04 16:11:00* Test Item Value Reference Range Interpretation Comments Urine Urobilinogen (test code = 26232-9) 0.2 0.2-1 [facility]berg[facility] total bilirubin measurement (mass/volume)2019-07-04 16:11:00* Test Item Value Reference Range Interpretation Comments Urine Bilirubin (test code = 1978-6) SMALL NEGATIVE [facility]bergUrine erythrocytes fudzlhuyj4603-04-60 16:11:00* Test Item Value Reference Range Interpretation Comments Urine Blood (test code = 96166-1) NEGATIVE NEGATIVE [facility] KlebergAutomated urine sediment leukocyte count by microscopy (number/high power field)2019-07-04 16:11:00* Test Item Value Reference Range Interpretation Comments Urine WBC (test code = 5821-4) NONE 0-5 [facility]bergErythrocytes detection in urine sediment by light omyfwvkiwx0934-38-61 16:11:00* Test Item Value Reference Range Interpretation Comments Urine RBC (test code = 17420-5) 0-5 0-5 [facility]bergBacteria detection in urine sediment by light zrvmcsqqcg2246-92-33 16:11:00* Test Item Value Reference Range Interpretation Comments Urine Bacteria (test code = 46973-3) FEW NONE [facility] KlebergEpithelial cells detection in urine sediment by light hqhobjghea1370-33-82 16:11:00* Test Item Value Reference Range Interpretation Comments Urine Epithelial Cells (test code = 11672-9) NONE NONE [facility] KlebergCT ABDOMEN/PELVIS G3159-12-94 14:50:00 [facility] [address] [address] Patient Name: DEANDRE PHILIP MR #: [id number] : 1985 Age/Sex: 34/M Req #: [id number] Adm Physician: Ordered by: AV BECKWITH MD Report #: [id number] Location: Room/Bed: Procedure: [id number] CT/CT ABDOMEN/PEL VIS W Exam Date: 07/04/19 [...] TO: AV BECKWITH MD Arterial blood pH fxcvdscwaex8108-94-45 13:43:00* Test Item Value Reference Range Interpretation Comments Arterial Blood pH (test code = 2744-1) 7.35 7.35-7.45 [facility] KlebergpCO2 TruP8737-74-97 13:43:00* Test Item Value Reference Range Interpretation Comments Arterial Blood Partial Pressure CO2 (test code = 2019-8) 40 35-45 [facility] KlebergArterial blood bicarbonate measurement (moles/volume)2019-07-04 13:43:00* Test Item Value Reference Range Interpretation Comments Arterial Blood HCO3 (test code = 1960-4) 22 22- [facility] KlebergArterial blood base excess by calculation 2019-07-04 13:43:00* Test Item Value Reference Range Interpretation Comments Arterial Blood Base Excess (test code = 1925-7) -3.0 -2-3 [facility] KlebergFluoroscopic procedure less than one hour byugsebs2054-94-34 13:43:00* Test Item Value Reference Range Interpretation Comments FiO2 (test code = FiO2) 21 [facility] KlebergCHEST SINGLE (PORTABLE)2019-07-04 13:06:00 [facility] [address] [place] [address] Patient Name: DEANDRE PHILIP MR #: [id number] : 1985 Age/Sex: 34/M Req #: [id number] Adm Physician: Ordered by: AV BECKWITH MD Report #: [id number] Location: ER Room/Bed: Procedure: [id number] DX/CHEST SINGLE ( PORTABLE) Exam Date: 07/04/19 [...] (PT) in platelet poor plasma by coagulation kampk8273-35-57 11:32:00* Test Item Value Reference Range Interpretation Comments Prothrombin Time (test code = 5902-2) 12.5 11.9-14.5 [facility] KlebergINR in Platelet poor plasma by Coagulation vvxgu9462-94-55 11:32:00* Test Item Value Reference Range Interpretation Comments Prothromb Time International Ratio (test code = 6301-6) 0.88 Oral Anticoagulant Therapy INR Values:1. Low Intensity Therapy 1.5 - 2.02 . Moderate Intensity Therapy 2.0 - 3.03. High Intensity Therapy(1) 2.5 - 3. 54. High Intensity Therapy(2) 3.0 - 4.05. Panic Value INR > 5.0 [facility] KlebergActivated partial thromboplastin time (aPTT) in platelet poor plasma by coagulation geizh2171-84-41 11:32:00* Test Item Value Reference Range Interpretation Comments Activated Partial Thromboplast Time (test code = 96833-7) 26.8 23.8-35.5 [facility] KlebergFluoroscopic procedure less than one hour jupenkuu5125-36-75 11:32:00* Test Item Value Reference Range Interpretation Comments Lactic Acid Level (test code = Lactic Acid Level) 1.0 0.5- 2.0 [facility] or plasma magnesium measurement (mass/volume)2019-07-04 11:32:00* Test Item Value Reference Range Interpretation Comments Magnesium Level (test code = 39986-2) 1.6 1.3-2.1 [facility] Americaerum or plasma triglyceride measurement (mass/volume)2019-07-04 11:32:00* Test Item Value Reference Range Interpretation Comments Triglycerides Level (test code = 2571-8) 1948 0-149 [facility] Americaerum or plasma cholesterol measurement (mass/volume)2019-07-04 11:32:00* Test Item Value Reference Range Interpretation Comments Cholesterol Level (test code = 2093-3) 395 0-199 Less than 200 mg/dL Low Hlsa013 - 239 mg/dL Borderline Fkco338 m g/dl and greater High Risk [facility] Americaerum or plasma cholesterol in HDL measurement (mass/volume) 2019-07-04 11:32:00* Test Item Value Reference Range Interpretation Comments HDL Cholesterol (test code = 2085-9) 25 40-60 [facility] Americaerum or plasma total cholesterol/cholesterol in HDL mass jftdv9025-00-45 11:32:00* Test Item Value Reference Range Interpretation Comments Cholesterol/HDL Ratio (test code = 9830-1) 15.8 3.9-4.7 [facility] Americaerum or plasma creatine kinase measurement (enzymatic activity/volume)2019-07-04 11:32:00* Test Item Value Reference Range Interpretation Comments Creatine Kinase (test code = 2157-6) 40 30-200 [facility] Americaerum or plasma creatine kinase MB measurement (mass/volume)2019-07-04 11:32:00* Test Item Value Reference Range Interpretation Comments Creatine Kinase MB (test code = 49678-0) 0.60 0-5.0 [facility] KlebergTroponin I measurement by highly sensitive enzyme kvsnxdbozis6780-10-65 11:32:00* Test Item Value Reference Range Interpretation Comments Troponin I (test code = 17057-2) < 0.001 0-0.300 [facility] KlebergBlood ptjawpj9066-18-10 11:32:00* Test Item Value Reference Range Interpretation Comments Blood Culture (test code = 72183048) NO GROWTH AFTER 72 HOURS [facility] KlebergGLUBED2020-05-01 12:00:00* Test Item Value Reference Range Interpretation Comments GLUBED (test code = GLUBED) 223 mg/dL 74-106 H Performed by certified call or contact [facility] PPZWSI3470-84-86 06:14:00* Test Item Value Reference Range Interpretation Comments GLUBED (test code = GLUBED) 125 mg/dL 74-106 H Performed by certified call or contact centre operator at [facility] CBC W/AUTO UVKF9229-05-15 02:52:00* Test Item Value Reference Range Interpretation [...] (test code = MDIFF) NO COMPREHENSIVE METABOLIC QUOWL3842-34-19 02:25:00* Test Item Value Reference Range Interpretation [...] reference range due to change in reagent. AYGULM2426-40-46 02:25:00* Test Item Value Reference Range Interpretation Comments LIPASE (test code = LIP) 546 U/L 73.0-393.0 H TNCSLDPCY1146-80-88 02:25:00* Test Item Value Reference Range Interpretation Comments MAGNESIUM (test code = MAG) 2.0 mg/dL 1.8-2.4 N ILUFYT6933-27-85 00:08:00* Test Item Value Reference Range Interpretation Comments GLUBED (test code = GLUBED) 159 mg/dL 74-106 H Performed by certified call or contact centre operator at [facility] KZYMKS3839-38-87 17:53:00* Test Item Value Reference Range Interpretation Comments GLUBED (test code = GLUBED) 139 mg/dL 74-106 H Performed by certified call or contact centre operator at [facility] LKDXMF2581-08-95 11:57:00* Test Item Value Reference Range Interpretation Comments GLUBED (test code = GLUBED) 160 mg/dL 74-106 H Performed by certified call or contact centre operator [facility] ACUTE HEPATITIS OBUQM1919-81-67 08:09:00* Test Item Value Reference Range Interpretation [...] with a HCV Nucleic Acid Amplification test (113310).Performed At: [facility] [address] [place], [place] [id number] Jadon Carvalho MD Ph:[phone] PGXUIX0777-25-85 08:07:00* Test Item Value Reference Range Interpretation Comments GLUBED (test code = GLUBED) 166 mg/dL 74-106 H Performed by certified call or contact centre operator [facility] GYYKIK8820-96-71 05:39:00* Test Item Value Reference Range Interpretation Comments GLUBED (test code = GLUBED) 152 mg/dL 74-106 H Performed by certified call or contact centre operator [facility] COMPREHENSIVE METABOLIC XFNCY6365-87-98 03:05:00* Test Item Value Reference Range Interpretation [...] reference range due to change in reagent. [id number] 03:05:00* Test Item Value Reference Range Interpretation Comments LIPASE (test code = LIP) 1815 U/L 73.0-393.0 H [id number] 03:05:00* Test Item Value Reference Range Interpretation Comments MAGNESIUM (test code = MAG) 1.9 mg/dL 1.8-2.4 N CBC W/AUTO NHEV6277-84-08 02:42:00* Test Item Value Reference Range Interpretation [...] DIFF REQUIRED (test code = MDIFF) NO [id number] 00:19:00* Test Item Value Reference Range Interpretation Comments GLUBED (test code = GLUBED) 197 mg/dL 74-106 H Performed by certified call or contact centre operator [facility] IVAQWE0474-74-08 20:25:00* Test Item Value Reference Range Interpretation Comments GLUBED (test code = GLUBED) 214 mg/dL 74-106 H Performed by certified call or contact centre operator [facility] VSNXUA4488-86-18 18:18:00* Test Item Value Reference Range Interpretation Comments GLUBED (test code = GLUBED) 234 mg/dL 74-106 H Performed by certified call or contact centre operator at [facility] LPUKBK4261-39-93 12:02:00* Test Item Value Reference Range Interpretation Comments GLUBED (test code = GLUBED) 215 mg/dL 74-106 H Performed by certified call or contact centre operator at [facility] BTSXAD7360-35-53 08:01:00* Test Item Value Reference Range Interpretation Comments GLUBED (test code = GLUBED) 203 mg/dL 74-106 H Performed by certified call or contact centre operator at [facility] COMPREHENSIVE METABOLIC GXIMG6710-08-52 07:38:00* Test Item Value Reference Range Interpretation [...] This LDL result is a direct measurement.========= TFDTSL3614-43-78 07:38:00* Test Item Value Reference Range Interpretation Comments LIPASE (test code = LIP) 17325 U/L 73.0-393.0 H THYROID STIMULATING WIPGUQH1179-76-93 07:38:00* Test Item Value Reference Range Interpretation Comments THYROID STIMULATING HORMONE (test code = TSH) 2.460 uIU/mL 0.36-3.7 4 N TSH REFERENCE RANGES: EUTHYROID: 0.35 - 4.3 mIU/mL HYPO : > 5.5 mIU/mL HYPER : < 0.35 mIU/mL [id number] 07:17:00* Test Item Value Reference Range Interpretation Comments GLYCOSYLATED HEMOGLOBIN (HA1C) (test code = GLYHGB) 9.0 % HbA1 SUGGESTED DIAGNOSIS: HbA1C (%) Diabetic >6.4Prediabetes 5.7 - 6.4Normal <5.7 ESTIMATED AVERAGE GLUCOSE (test code = EAG) 212 MG/DL [id number] 07:17:00* Test Item Value Reference Range Interpretation Comments AMMONIA (test code = AMM) 66 umol/L 11-32 H CBC W/AUTO [id number] 07:06:00* Test Item Value Reference Range Interpretation [...] 0.00 K/mm3 0.0-0.1 N - US ABDOMEN [id number] 07:05:00 Name: DEANDRE PHILIP [facility] : 1985 Age/S: 34 / [facility] [address] [facility]: [id number] Loc: [place] [address] Phys: Kasey Heller MD Acct: [id number] Dis Date: Status: ADM IN PHONE #: [phone] Exam Date: 06/12/2019 001 FAX #: [phone] Reason: Elevated liapse ,ammonia EXAMS: CPT CODE: [id number] US ABDOMEN COMPLETE 16176 HISTORY: Elevated lipase and pneumonia. COMPARISON: CT [...] (704) [email or web address] Orig Print D/T: S: 06/13/2019 (08) Probe: PAGE 1 Signed Report CBC W/AUTO [id number] 06:59:00* Test Item Value Reference Range Interpretation [...] # (test code = BA#) K/mm3 0.0-0.2 AWKWLS4992-34-25 05:00:00* Test Item Value Reference Range Interpretation Comments GLUBED (test code = GLUBED) 205 mg/dL 74-106 H Performed by certified call or contact centre operator at [facility] YXDOGR0954-22-36 00:54:00* Test Item Value Reference Range Interpretation Comments GLUBED (test code = GLUBED) 248 mg/dL 74-106 H Performed by certified call or contact centre operator at [facility] UMTXOM1597-29-31 00:54:00* Test Item Value Reference Range Interpretation Comments GLUBED (test code = GLUBED) 248 mg/dL 74-106 H Performed by certified call or contact centre operator at [facility] [id number] 20:59:00* Test Item Value Reference Range Interpretation Comments GLUBED (test code = GLUBED) 192 mg/dL 74-106 H Performed by certified call or contact centre operator at [facility] GXPWCN0925-04-58 17:39:00* Test Item Value Reference Range Interpretation Comments GLUBED (test code = GLUBED) 175 mg/dL 74-106 H Performed by certified call or contact centre operator at [facility] TLKKOXC8628-75-67 15:21:00* Test Item Value Reference Range Interpretation Comments AMMONIA (test code = AMM) 120 umol/L 11-32 H [id number] 15:18:00* Test Item Value Reference Range Interpretation Comments PHOSPHORUS (test code = PHOS) 3.7 mg/dL 2.5-4.9 N [id number] 15:18:00* Test Item Value Reference Range Interpretation Comments MAGNESIUM (test code = MAG) 2.1 mg/dL 1.8-2.4 N FOLIC [id number] 15:18:00* Test Item Value Reference Range Interpretation Comments FOLIC ACID (test code = FOL) 19.6 ng/mL 3.10-17.50 H [id number] 14:56:00* Test Item Value Reference Range Interpretation Comments GLUBED (test code = GLUBED) 213 mg/dL 74-106 H Performed by certified call or contact centre operator at [facility] DRUGS OF ABUSE SCREEN [id number] 14:54:00* Test Item Value Reference Range Interpretation [...] code = [place]) NEGATIVE <300 ng/mL PROTHROMBIN [id number] 14:52:00* Test Item Value Reference Range Interpretation [...] (2.5-3.5) IS PATIENT ON ANTICOAGULANTS? NTHROMBOPLASTIN TIME [id number] 14:52:00* Test Item Value Reference Range Interpretation Comments THROMBOPLASTIN TIME PARTIAL (test code = PTT) 34.7 seconds 23.0-37. 0 N IS PATIENT ON ANTICOAGULANTS? NDRUGS OF ABUSE SCREEN FQ1537-03-39 14:40:00* Test Item Value Reference Range Interpretation [...] 84-246 N ADD ON- CT ABD PELVIS W/[id number] 10:38:00 Name: DEANDRE PHILIP [facility] : 1985 Age/S: 34 / M [address] [facility] Unit #: [id number] Loc: [place] [address] Phys: Papa Roberts MD Acct: [id number] Dis Date: Status: REG ER PHONE #: [phone] Exam Date: 06/12/2019 0941 FAX #: [phone] Reason: RUQ abdominal pain EXAMS: CPT CODE: [id number] CT ABD PELVIS W/CONT 22076 REASON FOR EXAM: RUQ abdominal pain EXAM ORDER DATE: 06/12/2019 8:32 AM Ordering M.DTroy: Papa Roberts MD PROCEDURE: - CT ABD [...] Signed Report ( CONTINUED) Name: DEANDRE PHILIP [facility] : 1985 Age/S: 34 / M [address] U nit #: [id number] Loc: [place] [address] Phys: Papa Roberts MD Acct: [id number] Dis Date: Status: REG ER PHONE #: [phone] Exam Date: 06/12/2019 0941 FAX #: [phone] Reason: RUQ abdominal pain EXAMS: CPT CODE: [id number] CT ABD PELVIS W/CONT 10443 <Continued> IMPRESSION: Findings suggest mild pancreatitis involving the head versus duodenitis involving the third and fourth segments of the duodenum. However no duodenal mass is seen and there is no evidence of pancreatic necrosis or fluid collection. Hepatomegaly with hepatic s teatosis. Location: [facility] at 1038 Reported and signed by: Jonathan Chandra MD CC: Papa Roberts MD Technologist:Kat Greene,RT(R),CT CTDI: DLP: Trnscb Date/Time: 06/12/2019 (1038) [email or web address] Orig Print D/T: S: 06/12/2019 (1041) PAGE 2 S igned Report BASIC METABOLIC [id number] 09:36:00* Test Item Value Reference Range Interpretation [...] CA) 9.0 mg/dL 8.5-10.1 N HEPATIC FUNCTION [id number] 09:36:00* Test Item Value Reference Range Interpretation [...] reference range due to change in reagent. [id number] 09:36:00* Test Item Value Reference Range Interpretation Comments LIPASE (test code = LIP) 4321 U/L 73.0-393.0 H [id number] 09:36:00* Test Item Value Reference Range Interpretation Comments TROPONIN-I (test code = TROPI) <0.015 ng/mL 0-0.045 N URINALYSIS [id number] 09:13:00* Test Item Value Reference Range Interpretation [...] #/LPF FEW Urine Source? Clean CatchBASIC METABOLIC [id number] 09:07:00* Test Item Value Reference Range Interpretation [...] CA) 9.0 mg/dL 8.5-10.1 N HEPATIC FUNCTION [id number] 09:07:00* Test Item Value Reference Range Interpretation [...] reference range due to change in reagent. [id number] 09:07:00* Test Item Value Reference Range Interpretation Comments LIPASE (test code = LIP) 4321 U/L 73.0-393.0 H [id number] 09:07:00* Test Item Value Reference Range Interpretation Comments TROPONIN-I (test code = TROPI) <0.015 ng/mL 0-0.045 N CBC W/O [id number] 08:50:00* Test Item Value Reference Range Interpretation [...] MPV) 10.2 fL 6.7-11.0 N CBC W/O [id number] 08:48:00* Test Item Value Reference Range Interpretation [...] VOLUME (test code = MPV) fL 6.7-11.0 [id number] 11:23:00* Test Item Value Reference Range Interpretation Comments GLUBED (test code = GLUBED) 174 mg/dL 74-106 H Performed by certified call or contact centre operator at [facility] [id number] 08:05:00* Test Item Value Reference Range Interpretation Comments GLUBED (test code = GLUBED) 123 mg/dL 74-106 H Performed by certified call or contact centre operator at [facility] BASIC METABOLIC [id number] 07:19:00* Test Item Value Reference Range Interpretation [...] code = CA) 9.0 mg/dL 8.5-10.1 N [id number] 07:19:00* Test Item Value Reference Range Interpretation Comments LIPASE (test code = LIP) 174 U/L 73.0-393.0 N CBC W/AUTO [id number] 06:35:00* Test Item Value Reference Range Interpretation [...] DIFF REQUIRED (test code = MDIFF) NO [id number] 20:15:00* Test Item Value Reference Range Interpretation Comments GLUBED (test code = GLUBED) 193 mg/dL 74-106 H Performed by certified call or contact centre operator at [facility] [id number] 16:09:00* Test Item Value Reference Range Interpretation Comments GLUBED (test code = GLUBED) 149 mg/dL 74-106 H Performed by certified call or contact centre operator at [facility] - ABDOMEN [id number] 14:18:00 Name: DEANDRE PHILIP [facility] : 1985 Age/S: 34 / M [address] [place] [address] Unit #: [id number] Loc: DIGNA Isaacs [address] Phys: AnjaliSuleman hopsonbenny PRINCIPAL IOS DEVELOPER Acct: [id number] Dis Date: Status: ADM IN PHONE #: [phone] Exam Date: 04/12/20190 FAX #: [phone] Reason: ABDOMINAL PAIN EXAMS: CPT CODE: [id number] US ABDOMEN LTD 30112 REASON FOR EXAM: ABDOMINAL PAIN EXAM ORDER DATE: 04/12/2019 9:52 AM Attending MWhitley: Nehemiah Alba NP PROCEDURE: - US ABDOMEN LTD Comparison: CT of the abdomen and pelvis the previous night FINDINGS/ IMPRESSION: Visualized portion of the pancreas appears to be within normal limits. Hepatic parenchyma is hyperechoic which likely represents steatosis. Location: [facility] at 1418 Reported and signed by: Jonathan Chandra MD CC: Nehemiah Alba NP; Matt Alexandre MD Technologist: ZEN MIRANDA RT(R),RD Trnpab Date/Time: 04/12/2019 (1417) t.SDR.RR31 Orig Print D/T: S: 04/12/2019 (7786) Probe: PAGE 1 Signed Report - US ABDOMEN [id number] 14:18:00 Name: DEANDRE PHILIP [facility] : 1985 Age/S: 34 / M [address] [facility] Unit #: [id number] Loc: DIGNA Isaacs [address] Phys: Michelle Alba bina PRINCIPAL IOS DEVELOPER Acct: [id number] Di s Date: [id number] Status: DIS IN PHONE #: Exam Date: 04/12/2019 140 FAX #: Reason: ABDOMINAL PAIN EXAMS: CPT CODE: [id number] US ABDOMEN LTD 31981 REASON FOR EXAM: ABDOMINAL PAIN EXAM ORDER DATE: 04/12/2019 9:52 AM At tending MTroyDTroy: Nehemiah Alba NP PROCEDURE: - US ABDOMEN [...] (1418) t.SDR.RR31 Orig Print D/T: S: 04/12/2019 (0277) Probe: PAGE 1 Signed Report [id number] 12:45:00* Test Item Value Reference Range Interpretation Comments LIPASE (test code = LIP) 352 U/L 73.0-393.0 N [id number] 11:36:00* Test Item Value Reference Range Interpretation Comments GLUBED (test code = GLUBED) 171 mg/dL 74-106 H Performed by certified call or contact centre operator at [facility] [id number] 10:38:00* Test Item Value Reference Range Interpretation [...] This LDL result is a direct measurement.========= [id number] 10:29:00* Test Item Value Reference Range Interpretation Comments ALCOHOL (test code = ALC) < 3 mg/dL 0.0-3.0 N -- INTERPRETIVE DATA NOTE: POSITIVE SCREENING RESULTS SHOULD BE CONSIDERED PRESUMPTIVE.WHEN COLLECTED FOR MEDICAL PURPOSES ONLY. SPECIMEN WILL NOTBE COLLECTED BY CHAIN OF CUSTODY.IF A CONFIRMATION OF POSITIVE RESULTS IS DESIRED, ACONFIRMATION TEST MUST BE REQUESTED BY THE PHYSICIAN AT ANADDITIONAL CHARGE TO THE PATIENT. [id number] 08:12:00* Test Item Value Reference Range Interpretation Comments GLUBED (test code = GLUBED) 140 mg/dL 74-106 H Performed by certified call or contact centre operator at [facility] COMPREHENSIVE METABOLIC [id number] 07:50:00* Test Item Value Reference Range Interpretation [...] reference range due to change in reagent. [id number] 07:50:00* Test Item Value Reference Range Interpretation Comments PHOSPHORUS (test code = PHOS) 3.8 mg/dL 2.5-4.9 N [id number] 07:50:00* Test Item Value Reference Range Interpretation Comments MAGNESIUM (test code = MAG) 2.0 mg/dL 1.8-2.4 N COMPREHENSIVE METABOLIC [id number] 07:07:00* Test Item Value Reference Range Interpretation [...] reference range due to change in reagent. [id number] 07:07:00* Test Item Value Reference Range Interpretation Comments PHOSPHORUS (test code = PHOS) 3.8 mg/dL 2.5-4.9 N [id number] 07:07:00* Test Item Value Reference Range Interpretation Comments MAGNESIUM (test code = MAG) 2.0 mg/dL 1.8-2.4 N LACTIC DEHYDROGENASE(LDH)2019-04-12 06:54:00* Test Item Value Reference Range Interpretation Comments LACTIC DEHYDROGENASE(LDH) (test code = LDH) 102 IUnit/L 84-246 N [id number] 04:40:00* Test Item Value Reference Range Interpretation Comments TROPONIN-I (test code = TROPI) <0.015 ng/mL 0-0.045 N DRUGS OF ABUSE SCREEN [id number] 02:03:00* Test Item Value Reference Range Interpretation [...] NEGATIVE <300 ng/mL DRUGS OF ABUSE SCREEN [id number] 01:33:00* Test Item Value Reference Range Interpretation [...] code = [place]) <300 ng/mL BASIC METABOLIC [id number] 00:47:00* Test Item Value Reference Range Interpretation [...] CA) 8.4 mg/dL 8.5-10.1 L HEPATIC FUNCTION [id number] 00:47:00* Test Item Value Reference Range Interpretation [...] reference range due to change in reagent. [id number] 00:47:00* Test Item Value Reference Range Interpretation Comments LIPASE (test code = LIP) 552 U/L 73.0-393.0 H [id number] 00:47:00* Test Item Value Reference Range Interpretation Comments TROPONIN-I (test code = TROPI) <0.015 ng/mL 0-0.045 N - CT ABD PELVIS W/[id number] 23:35:00 Name: DEANDRE PHILIP [facility] : 1985 Age/S: 34 / M [address] [facility] Unit #: [id number] Loc: DIGNA Isaacs [address] Phys: Mj Borges PRINCIPAL IOS DEVELOPER Acct: [id number] Dis Date: Status: REG ER PHONE #: [phone] Exam Date: 04/11/2019 2310 FAX #: [phone] Reason: ABD PAIN EXAMS: CPT CODE: [id number] CT ABD PELVIS W/CONT 90814 CT ABDOMEN AND PELVIS ( with intravenous [...] 1 Signed Report (CONTINUED) Name: DEANDRE TRENT [facility] : 1985 A ge/S: 34 / M [address] Unit #: [id number] Loc : DIG[place] Isaacs [address] Phys: Mj Borges PRINCIPAL IOS DEVELOPER Acct: [id number] Dis Date: Status: REG ER PHONE #: [phone] Exam Date: 04/11/20192309 FAX #: [phone] Reason: ABD PAIN EXAMS: CPT CODE: [id number] CT ABD PELVIS W/CONT 31852 <Continued> at 2335 Reported and signed by: Greg Baez M.D. CC: Andres Blanco MD; Mj Borges NP Technologist:RT MERVIN CTDI: DLP: Trnscb Date/Time: 04/11/2019 (0029) t.MARIBELR.RK5 Orig Print D/T: S: 04/11/2019 (8932) PAGE 2 Signed Report - CT ABD PELVIS [id number] 23:35:00 Name: DEANDRE PHILIP [facility] : 1985 Age/S: 34 / M [address] Unit #: [id number] Loc: DIG[place] Isaacs [address] Phys: Mj Borges PRINCIPAL IOS DEVELOPER Acct: [id number] Dis Date: 04/13/2019 Status: DIS IN PHONE #: [phone] Exam Date: 04/11/20190 FAX #: [phone] Reason: ABD PAIN EXAMS: CPT CODE: [id number] CT ABD PELVIS W/CONT [address]3594 CT ABDOMEN AND PELVIS ( with intravenous [...] 1 Signed Report (CONTINUED) Name: DEANDRE PHILIP [facility] : 1985 Age/S: 34 / M [address] [facility] Unit #: [id number] Loc: DIGNA Isaacs [address] Phys: Mj Borges NP Acct: [id number] Dis Date: 04/13/2019 Status: DIS IN PHONE #: [phone] Exam Date: 04/11/2019 231 FAX #: [phone] Reason: ABD PAIN EXAMS: CPT CODE: [id number] CT ABD PELVIS W/CONT 68075 <Continued> at 2335 Reported and signed by: Greg Baez M.D. CC: Andres Blanco MD; Mj Borges NP Technologist:RT MERVIN CTDI: DLP: Trnscb Date/Time: 04/11/2019 (2335) tSANDRARK5 Orig Print D/T: S: 04/11/2019 (6397) PAGE 2 Signed Report BASIC METABOLIC [id number] 23:12:00* Test Item Value Reference Range Interpretation [...] CA) 8.4 mg/dL 8.5-10.1 L HEPATIC FUNCTION [id number] 23:12:00* Test Item Value Reference Range Interpretation [...] reference range due to change in reagent. [id number] 23:12:00* Test Item Value Reference Range Interpretation Comments LIPASE (test code = LIP) 552 U/L 73.0-393.0 H [id number] 23:12:00* Test Item Value Reference Range Interpretation Comments TROPONIN-I (test code = TROPI) <0.015 ng/mL 0-0.045 N BASIC METABOLIC [id number] 22:55:00* Test Item Value Reference Range Interpretation [...] code = CA) mg/dL 8.5-10.1 HEPATIC FUNCTION [id number] 22:55:00* Test Item Value Reference Range Interpretation [...] TOTAL (test code = ALKP) IUnit/L 45-117 [id number] 22:55:00* Test Item Value Reference Range Interpretation Comments LIPASE (test code = LIP) U/L 73.0-393.0 [id number] 22:55:00* Test Item Value Reference Range Interpretation Comments TROPONIN-I (test code = TROPI) ng/mL 0-0.045 URINALYSIS [id number] 22:51:00* Test Item Value Reference Range Interpretation [...] #/LPF FEW Urine Source? Clean CatchCBC W/O [id number] 22:37:00* Test Item Value Reference Range Interpretation [...] MPV) 10.2 fL 6.7-11.0 N CBC W/O [id number] 22:36:00* Test Item Value Reference Range Interpretation [...] VOLUME (test code = MPV) fL 6.7-11.0 [id number] 08:04:00* Test Item Value Reference Range Interpretation Comments GLUBED (test code = GLUBED) 137 mg/dL 74-106 H Performed by certified call or contact centre operator at [facility] BASIC METABOLIC [id number] 05:15:00* Test Item Value Reference Range Interpretation [...] CA) 9.2 mg/dL 8.5-10.1 N BASIC METABOLIC [id number] 05:10:00* Test Item Value Reference Range Interpretation [...] code = CA) mg/dL 8.5-10.1 CBC W/AUTO [id number] 04:49:00* Test Item Value Reference Range Interpretation [...] code = NRBC#) 0.00 K/mm3 0.0-0.1 N [id number] 21:26:00* Test Item Value Reference Range Interpretation Comments GLUBED (test code = GLUBED) 242 mg/dL 74-106 H Performed by certified call or contact centre operator at [facility] [id number] 16:25:00* Test Item Value Reference Range Interpretation Comments GLUBED (test code = GLUBED) 184 mg/dL 74-106 H Performed by certified call or contact centre operator at [facility] [id number] 11:17:00* Test Item Value Reference Range Interpretation Comments GLUBED (test code = GLUBED) 223 mg/dL 74-106 H Performed by certified call or contact centre operator at [facility] [id number] 07:51:00* Test Item Value Reference Range Interpretation Comments GLUBED (test code = GLUBED) 229 mg/dL 74-106 H Performed by certified call or contact centre operator at [facility] [id number] 21:05:00* Test Item Value Reference Range Interpretation Comments GLUBED (test code = GLUBED) 156 mg/dL 74-106 H Performed by certified call or contact centre operator at [facility] [id number] 18:34:00* Test Item Value Reference Range Interpretation Comments GLUBED (test code = GLUBED) 199 mg/dL 74-106 H Performed by certified call or contact centre operator at [facility] [id number] 18:34:00* Test Item Value Reference Range Interpretation Comments GLUBED (test code = GLUBED) 213 mg/dL 74-106 H Performed by certified call or contact centre operator at [facility] [id number] 08:41:00* Test Item Value Reference Range Interpretation Comments GLUBED (test code = GLUBED) 128 mg/dL 74-106 H Performed by certified call or contact centre operator at [facility] [id number] 21:11:00* Test Item Value Reference Range Interpretation Comments GLUBED (test code = GLUBED) 245 mg/dL 74-106 H Performed by certified call or contact centre operator at [facility] [id number] 16:43:00* Test Item Value Reference Range Interpretation Comments GLUBED (test code = GLUBED) 179 mg/dL 74-106 H Performed by certified call or contact centre operator at [facility] [id number] 12:19:00* Test Item Value Reference Range Interpretation Comments GLUBED (test code = GLUBED) 147 mg/dL 74-106 H Performed by certified call or contact centre [facility] [id number] 08:25:00* Test Item Value Reference Range Interpretation Comments GLUBED (test code = GLUBED) 138 mg/dL 74-106 H Performed by certified call or contact centre [facility] ACUTE HEPATITIS [id number] 08:10:00* Test Item Value Reference Range Interpretation [...] with a HCV Nucleic Acid Amplification test ([id number]).Performed At: [facility] [id number] Jadon Carvalho MD Ph:[phone] [id number] 20:11:00* Test Item Value Reference Range Interpretation Comments GLUBED (test code = GLUBED) 216 mg/dL 74-106 H Performed by certified call or contact centre [facility] [id number] 16:53:00* Test Item Value Reference Range Interpretation Comments GLUBED (test code = GLUBED) 142 mg/dL 74-106 H Performed by certified call or contact centre operator [facility] [id number] 12:02:00* Test Item Value Reference Range Interpretation Comments GLUBED (test code = GLUBED) 210 mg/dL 74-106 H Performed by certified call or contact centre operator at [facility] - US ABDOMEN [id number] 10:41:00 Name: DEANDRE PHILIP [facility] : 1985 Age/S: 34 / M [address] Unit #: [id number] Loc: Ferny DIGNA [address] Phys: Ana Pearl MD Acct: [id number] Dis Date: Status: ADM IN PHONE #: [phone] Exam Date: 03/07/2019 1036 FAX #: [phone] Reason: cirrhosis? EXAMS: CPT CODE: [id number] US ABDOMEN LTD [address] REASON FOR EXAM: cirrhosis? EXAM ORDER DATE: [...] 1 Signed Report (CONTINUED) Name: DEANDRE PHILIP [facility] : 1985 Age/S: 34 / M [address] Unit #: [id number] Loc: DIGNA Isaacs [address] Phys: Ana Pearl MD Acct: [id number] Dis Date: Status: ADM IN PHONE #: [phone] Exam Date: 03/07/2019 1036 FAX #: [phone] Reason: cirrhosis? EXAMS: CPT CODE: [id number] ABDOMEN LTD [address]348 <Continued> IMPRESSION: Hepatomegaly with hepatic steatosis. Prior cholecystectomy. Location: [facility] Electronically Si gned by Jonathan Chandra MD on 03/07/2019 at 1041 Reported an d signed by: Jonathan Chandra MD CC: Shayy Chamberlain MD; Ana Pearl MD Technologist: DONNA LUONG RT(R), RDMS Trnpab Date/Time: 03/07/2019 (104) t.SDR.RR31 Orig Print D/T: S: 03/07/2019 (1044) Probe: PAGE 2 Signed Report HEPATIC FUNCTION [id number] 09:37:00* Test Item Value Reference Range Interpretation [...] reference range due to change in reagent. [id number] 08:23:00* Test Item Value Reference Range Interpretation Comments GLUBED (test code = GLUBED) 105 mg/dL 74-106 N Performed by certified call or contact centre operator at [facility] BASIC METABOLIC [id number] 05:51:00* Test Item Value Reference Range Interpretation [...] CA) 8.9 mg/dL 8.5-10.1 N BASIC METABOLIC [id number] 05:42:00* Test Item Value Reference Range Interpretation [...] code = CA) mg/dL 8.5-10.1 CBC W/AUTO [id number] 05:37:00* Test Item Value Reference Range Interpretation [...] code = NRBC#) 0.00 K/mm3 0.0-0.1 N [id number] 16:28:00* Test Item Value Reference Range Interpretation Comments GLUBED (test code = GLUBED) 184 mg/dL 74-106 H Performed by certified call or contact centre operator at [facility] [id number] 12:36:00* Test Item Value Reference Range Interpretation Comments GLUBED (test code = GLUBED) 261 mg/dL 74-106 H Performed by certified call or contact centre operator at [facility] [id number] 07:26:00* Test Item Value Reference Range Interpretation Comments GLUBED (test code = GLUBED) 194 mg/dL 74-106 H Performed by certified call or contact centre operator at [facility] [id number] 20:23:00* Test Item Value Reference Range Interpretation Comments GLUBED (test code = GLUBED) 266 mg/dL 74-106 H Performed by certified call or contact centre operator at [facility] [id number] 16:23:00* Test Item Value Reference Range Interpretation Comments GLUBED (test code = GLUBED) 292 mg/dL 74-106 H Performed by certified call or contact centre operator at [facility] [id number] 16:23:00* Test Item Value Reference Range Interpretation Comments GLUBED (test code = GLUBED) 302 mg/dL 74-106 H Performed by certified call or contact centre operator at [facility] [id number] 11:24:00* Test Item Value Reference Range Interpretation Comments GLUBED (test code = GLUBED) 218 mg/dL 74-106 H Performed by certified call or contact centre operator at [facility] [id number] 07:51:00* Test Item Value Reference Range Interpretation Comments GLUBED (test code = GLUBED) 158 mg/dL 74-106 H Performed by certified call or contact centre operator at [facility] BASIC METABOLIC [id number] 06:00:00* Test Item Value Reference Range Interpretation [...] CA) 8.9 mg/dL 8.5-10.1 N BASIC METABOLIC [id number] 05:54:00* Test Item Value Reference Range Interpretation [...] code = CA) mg/dL 8.5-10.1 CBC W/AUTO [id number] 05:33:00* Test Item Value Reference Range Interpretation [...] code = NRBC#) 0.00 K/mm3 0.0-0.1 N [id number] 21:10:00* Test Item Value Reference Range Interpretation Comments GLUBED (test code = GLUBED) 283 mg/dL 74-106 H Performed by certified call or contact centre operator at [facility] [id number] 16:52:00* Test Item Value Reference Range Interpretation Comments GLUBED (test code = GLUBED) 197 mg/dL 74-106 H Performed by certified call or contact centre operator at [facility] [id number] 11:42:00* Test Item Value Reference Range Interpretation Comments GLUBED (test code = GLUBED) 187 mg/dL 74-106 H Performed by certified call or contact centre operator at [facility] [id number] 08:01:00* Test Item Value Reference Range Interpretation Comments GLUBED (test code = GLUBED) 88 mg/dL 74-106 N Performed by certified call or contact centre operator at [facility] [id number] 20:51:00* Test Item Value Reference Range Interpretation Comments GLUBED (test code = GLUBED) 267 mg/dL 74-106 H Performed by certified call or contact centre operator at [facility] [id number] 16:28:00* Test Item Value Reference Range Interpretation Comments GLUBED (test code = GLUBED) 234 mg/dL 74-106 H Performed by certified call or contact centre operator at [facility] [id number] 11:54:00* Test Item Value Reference Range Interpretation Comments GLUBED (test code = GLUBED) 157 mg/dL 74-106 H Performed by certified call or contact centre operator at [facility] [id number] 08:23:00* Test Item Value Reference Range Interpretation Comments GLUBED (test code = GLUBED) 144 mg/dL 74-106 H Performed by certified call or contact centre operator at [facility] BASIC METABOLIC [id number] 06:18:00* Test Item Value Reference Range Interpretation [...] CA) 8.2 mg/dL 8.5-10.1 L CBC W/AUTO [id number] 06:13:00* Test Item Value Reference Range Interpretation [...] (test code = MDIFF) NO BASIC METABOLIC [id number] 06:13:00* Test Item Value Reference Range Interpretation [...] CALCIUM (test code = CA) mg/dL 8.5-10.1 [id number] 20:14:00* Test Item Value Reference Range Interpretation Comments GLUBED (test code = GLUBED) 182 mg/dL 74-106 H Performed by certified call or contact centre operator at [facility] [id number] 15:59:00* Test Item Value Reference Range Interpretation Comments GLUBED (test code = GLUBED) 223 mg/dL 74-106 H Performed by certified call or contact centre operator at [facility] [id number] 11:35:00* Test Item Value Reference Range Interpretation Comments GLUBED (test code = GLUBED) 164 mg/dL 74-106 H Performed by certified call or contact centre operator at [facility] [id number] 07:50:00* Test Item Value Reference Range Interpretation Comments GLUBED (test code = GLUBED) 113 mg/dL 74-106 H Performed by certified call or contact centre operator at [facility] BASIC METABOLIC [id number] 05:33:00* Test Item Value Reference Range Interpretation [...] CA) 9.0 mg/dL 8.5-10.1 N CBC W/AUTO [id number] 05:29:00* Test Item Value Reference Range Interpretation [...] code = NRBC#) 0.00 K/mm3 0.0-0.1 N [id number] 20:55:00* Test Item Value Reference Range Interpretation Comments GLUBED (test code = GLUBED) 187 mg/dL 74-106 H Performed by certified call or contact centre operator at [facility] [id number] 16:24:00* Test Item Value Reference Range Interpretation Comments GLUBED (test code = GLUBED) 274 mg/dL 74-106 H Performed by certified call or contact [facility] - DUP AB/PEL/SC [id number] 09:07:00 Name: DEANDRE PHILIP [facility] : 1985 Age/S: 34 / M [address] Unit #: [id number] Loc: DIGNA Isaacs [address] Phys: Cheryl Lawton PRINCIPAL IOS DEVELOPER Acct: [id number] Dis Date: Status: REG ER PHONE #: [phone] Exam Date: 03/01/2019 0840 FAX #: [phone] Reason: SCROTAL PAIN EXAMS: CPT CODE: [id number] DUP AB/PEL/SC COMP 44927 HISTORY: Testicular pain. COMPARISON: None available. Bilateral testicular ultrasound with color and Doppler flow and grayscale imaging. Location: [facility]. Low-resistance arterial Doppler flow with [...] 1 Signed Report (CONTINUED) Name[facility] 1985 Age/S: 34 / M [address] Unit #: [id number] Loc: DIGNA Isaacs [address] Phys: Cheryl Lawton PRINCIPAL IOS DEVELOPER Acct: [id number] Dis Date: Status: REG ER PHONE #: [phone] Exam Date: 03/01/2019 0840 FAX #: [phone] Reason: SCROTAL PAIN EXAMS: CPT CODE: [id number] DUP AB/PEL/SC COMP 63207 <Continued> CC: Cheryl Lawton NP Technologist: ZEN MIRANDA RT(R),RDMS Trnpab Date/Time: 03/01/2019 (906) t.SDR.TH4 Orig Print D/T: S: 03/01/2019 (09) Probe: PAGE 2 Signed Report - US SCROTUM AND [id number] 09:07:00 Name[facility] 1985 Age/S: 34 / M [address] Unit #: [id number] Loc: DIGNA Isaacs [address] Phys: Kely Lawton PRINCIPAL IOS DEVELOPER Acct: [id number] Di s Date: Status: REG ER PHONE #: [phone] Exam Date: 03/01/2019 0840 FAX #: [phone] Reason: SCROTAL PAIN EXAMS: CPT CODE: [id number] US SCROTUM AND CNTS 53509 HISTORY: Testicular pain. COMPARISON: None available. Bilateral [...] No hydrocele or va ricocele. a t 09 Reported and signed by: Ronni Velásquez M.D. PAGE 1 Signed Report (CONTINUED) N jesenia: DEANDRE PHILIP [facility] : 0 1985 Age/S: 34 / M [address] [facility] Unit #: [id number] Loc: [place] [address] Phys: Cheryl Lawton NP Acct: [id number] Dis D ate: Status: REG ER PHONE #: Exam Date: 03/01/2019 0840 FAX #: [phone] Reason: SCROTAL PAIN EXAMS: CPT CODE: [id number] US SCROTUM AND C NTS 40591 <Continued> CC: Cheryl Lawton NP Technologist: ZEN MIRANDA RT(R),RDMS Trnscb Date/Time: 03/01/2019 (906) tSANDRATH4 Orig Print D/T: S: 03/01/2019 (09) Probe: PAGE 2 Signed Report BASIC METABOLIC [id number] 09:02:00* Test Item Value Reference Range Interpretation [...] CA) 9.2 mg/dL 8.5-10.1 N HEPATIC FUNCTION [id number] 09:02:00* Test Item Value Reference Range Interpretation [...] range due to change in reagent. URINALYSIS [id number] 08:57:00* Test Item Value Reference Range Interpretation [...] #/LPF FEW Urine Source? Clean CatchBASIC METABOLIC [id number] 08:54:00* Test Item Value Reference Range Interpretation [...] code = CA) mg/dL 8.5-10.1 HEPATIC FUNCTION [id number] 08:54:00* Test Item Value Reference Range Interpretation [...] (test code = ALKP) IUnit/L 45-117 URINALYSIS [id number] 08:44:00* Test Item Value Reference Range Interpretation [...] HPF NONE Urine Source? Clean CatchCBC W/O [id number] 08:44:00* Test Item Value Reference Range Interpretation [...] code = MPV) 10.5 fL 6.7-11.0 N [id number] 11:32:00* Test Item Value Reference Range Interpretation Comments GLUBED (test code = GLUBED) 118 mg/dL 74-106 H Performed by certified call or contact centre operator at [facility] [id number] 08:55:00* Test Item Value Reference Range Interpretation Comments GLUBED (test code = GLUBED) 103 mg/dL 74-106 N Performed by certified call or contact centre operator at [facility] [id number] 02:57:00* Test Item Value Reference Range Interpretation Comments LIPASE (test code = LIP) 251 U/L 73.0-393.0 N [id number] 21:04:00* Test Item Value Reference Range Interpretation Comments GLUBED (test code = GLUBED) 163 mg/dL 74-106 H Performed by certified call or contact centre operator at [facility] [id number] 16:08:00* Test Item Value Reference Range Interpretation Comments GLUBED (test code = GLUBED) 124 mg/dL 74-106 H Performed by certified call or contact centre operator at [facility] [id number] 11:39:00* Test Item Value Reference Range Interpretation Comments GLUBED (test code = GLUBED) 113 mg/dL 74-106 H Performed by certified call or contact centre operator at [facility] [id number] 09:57:00* Test Item Value Reference Range Interpretation Comments LIPASE (test code = LIP) 522 U/L 73.0-393.0 H [id number] 07:58:00* Test Item Value Reference Range Interpretation Comments GLUBED (test code = GLUBED) 128 mg/dL 74-106 H Performed by certified call or contact centre operator at [facility] CBC W/AUTO [id number] 03:29:00* Test Item Value Reference Range Interpretation [...] (test code = MDIFF) NO COMPREHENSIVE METABOLIC [id number] 03:13:00* Test Item Value Reference Range Interpretation [...] due to change in reagent. COMPREHENSIVE METABOLIC [id number] 03:07:00* Test Item Value Reference Range Interpretation [...] TOTAL (test code = ALKP) IUnit/L 45-117 [id number] 20:17:00* Test Item Value Reference Range Interpretation Comments GLUBED (test code = GLUBED) 126 mg/dL 74-106 H Performed by certified call or contact centre operator at [facility] [id number] 17:47:00* Test Item Value Reference Range Interpretation Comments GLUBED (test code = GLUBED) 129 mg/dL 74-106 H Performed by certified call or contact centre operator at [facility] LIPID PROFILE (CORONARY RISK)2018-10-17 13:02:00* Test Item [...] LDL result is a direct measurement.========= LACTIC [id number] 12:56:00* Test Item Value Reference Range Interpretation Comments LACTIC ACID (test code = LACT) 1.2 mmol/L 0.4-1.9 N [id number] 12:06:00* Test Item Value Reference Range Interpretation Comments GLUBED (test code = GLUBED) 115 mg/dL 74-106 H Performed by certified call or contact centre operator at [facility] [id number] 11:09:00* Test Item Value Reference Range Interpretation Comments LIPASE (test code = LIP) 727 U/L 73.0-393.0 H [id number] 11:07:00* Test Item Value Reference Range Interpretation Comments GLYCOSYLATED HEMOGLOBIN (HA1C) (test code = GLYHGB) 7.8 % HbA1 4. 8-6.0 H ESTIMATED AVERAGE GLUCOSE (test code = EAG) 177 MG/DL LACTIC [id number] 08:57:00* Test Item Value Reference Range Interpretation Comments LACTIC ACID (test code = LACT) 1.1 mmol/L 0.4-1.9 N [id number] 08:02:00* Test Item Value Reference Range Interpretation Comments GLUBED (test code = GLUBED) 149 mg/dL 74-106 H Performed by certified call or contact centre operator at [facility] - CT ABD PELVIS [id number] 05:22:00 Name: DEANDRE PHILIP [facility] : 1985 Age/S: 33 / M [address] [facility] Unit #: [id number] Loc: [place] [address] Phys: Cheryl Lawton PRINCIPAL [employer] DEVELOPER Acct: [id number] Dis Date: Status: REG ER PHONE #: [phone] Exam Date: 10/17/2018 0500 FAX #: [phone] Reason: abdominal pain EXAMS: CPT CODE: [id number] CT ABD PELVIS W/CONT 00919 CT abdomen and pelvis with IV contrast. [...] Signed Rep ort (CONTINUED) Name: DEANDRE PHILIP [facility] : 1985 Age/S: 33 / M [address] Unit #: [id number] Loc: DIGNA Isaacs [address] Phys: Cheryl Lawton NP Acct: [id number] Dis Date: Status: REG ER PHONE #: [phone] Exam Date: 10/17/2018 0500 FAX #: [phone] Reason: abdominal pain EXAMS: CPT CODE: [id number] CT ABD PELVIS W/CONT 77926 <Continued> at 0522 Reported and signed by: Sandee Fowler M.D. CC: Vivienne Madison MD; Cheryl Lawton NP Technologist:DEANDRA YA, CTDI: DLP: Trnscb Date/Time: 10/17/2018 (521) [email or web address] Orig Print D/T: S: 10/17/2018 (0570) PAGE 2 Signed Report [id number] 05:06:00* Test Item Value Reference Range Interpretation Comments TROPONIN-I (test code = TROPI) <0.015 ng/mL 0-0.045 N LACTIC [id number] 04:48:00* Test Item Value Reference Range Interpretation Comments LACTIC ACID (test code = LACT) 1.0 mmol/L 0.4-1.9 N URINALYSIS [id number] 04:46:00* Test Item Value Reference Range Interpretation [...] FEW #/LPF FEW Urine Source? Clean CatchURINALYSIS [id number] 04:45:00* Test Item Value Reference Range Interpretation [...] HPF NONE Urine Source? Clean CatchBASIC METABOLIC [id number] 04:45:00* Test Item Value Reference Range Interpretation [...] CA) 9.4 mg/dL 8.5-10.1 N HEPATIC FUNCTION [id number] 04:45:00* Test Item Value Reference Range Interpretation [...] reference range due to change in reagent. [id number] 04:45:00* Test Item Value Reference Range Interpretation Comments LIPASE (test code = LIP) 834 U/L 73.0-393.0 H BASIC METABOLIC [id number] 04:38:00* Test Item Value Reference Range Interpretation [...] code = CA) mg/dL 8.5-10.1 HEPATIC FUNCTION [id number] 04:38:00* Test Item Value Reference Range Interpretation [...] TOTAL (test code = ALKP) IUnit/L 45-117 [id number] 04:38:00* Test Item Value Reference Range Interpretation Comments LIPASE (test code = LIP) U/L 73.0-393.0 CBC W/O [id number] 04:22:00* Test Item Value Reference Range Interpretation [...] MPV) 9.6 fL 6.7-11.0 N CBC W/O [id number] 04:20:00* Test Item Value Reference Range Interpretation [...] MPV) fL 6.7-11.0 - XR CHEST 1 [id number] 04:09:00 FAX: Cheryl Lawton NP [place]: B St: REG Name: DEANDRE SMITH [facility] : [birth year] Age/S: 33/M [address] [facility] Unit #: [id number] Loc: DIGNA [place] [address] Phys: Cheryl Lawton NP Acct: [id number] Dis Date: Status: REG ER PHONE #: [phone] Exam Date: 10/17/2018354 FAX #: [phone] Reason: ABDOMINAL PAIN EXAMS: CPT CODE: [id number] XR CHEST 1 V 89239 Location: T 18 CHEST X- RAY: AP [...] Scarlet Sauceda ate/Time/By: 10/17/2018 (040) : By: [email or web address] Orig Print D/T: S: 04/2018 (0413) PAGE 1 Signed Repor t POC LACTIC [id number] 04:03:00* Test Item Value Reference Range Interpretation Comments POC LACTIC ACID (test code = POCLAC) 2.37 MMOL/L 0.4-2.2 H Lipid [id number] 07:21:00* Test Item Value Reference Range Interpretation Comments Cholesterol (test code = 2093-3) 244.0 mg/dL <=200.0 H Desirable: < 200.0 mg/dLBorderline: 200 - 240 mg/dLHigh Risk: > 240 mg/dL Triglyceride (test code = 41684781) 990 mg/dL <150 H Normal: < 150.0 mg/dL Borderline: 150-199 mg/dL High: 200-499 mg/dL Very High: >= 500 mg/dL HDL (test code = 2085-9) 31.0 mg/dL See Reference Range Narrative . Increased CHD Risk: < 40.0 mg/dL Decreased CHD Risk: > 60 mg/dL LDL (test code = 61592-1) <100 mg/dL Tr iglyceride value is > 400 mg/dl. Unable to calculate LDL value due to high triglyceride. Lab Interpretation (test code = 63670-1) [facility] [id number] 07:21:00* Test Item Value Reference Range Interpretation Comments Sodium (test code = 2951-2) 138 mmol/L 136-145 Potassium (test code = 2823-3) 4.8 mmol/L 3.5-5.1 Chloride (test code = 2075-0) 103 mmol/L 98-107 CO2 (test code = 95135214) 26 mmol/L 21-31 Glucose (test code = 83753319) 148 mg/dL 70-110 H Calcium (test code = 54212538) 9.4 mg/dL 8.6-10.3 Urea Nitrogen (test code = 17775465) 15.0 mg/dL 7-25 Creatinine (test code = 37238262) 0.9 mg/dL 0.7-1.3 Alkaline Phosphatase (test code = 00297444) 77 U/L 34-104 ALT (test code = 74485441) 79 U/L 7-52 H AST (test code = 78734222) 37 U/L 13-39 Total Protein (test code = 2885-2) 6.8 g/dL 6-8.3 GFR, Estimated (test code = 80543840) >90 >=90 mL/min/1.73 m2 Albumin (test code = 76052-6) 4.5 g/dL 4.2-5.5 Anion Gap (test code = 58496573) 9 mmol/L 5-16 Lab Interpretation (test code = 59037-9) [facility] [id number] 15:50:00* Test Item Value Reference Range Interpretation Comments Hemoglobin A1c (test code = 4548-4) 7.6 % 4.3-6.1 H Estimated Average Glucose (test code = 59610342) 171 mg/dL 70-11 0 H Lab Interpretation (test code = 98229-8) [facility] VIEWS [id number] 13:59:54IMPRESSION: Scattered degenerative change. No osseous erosion Dictated By: Asael Pérez MD, 09/13/2018 1:58 PM I have reviewed the study and agree with the findings in this report. Signed By: Buddy Davies MD, 09/13/2018 1:59 PM Laura, Abhinav/Mammog In - 09/13/2018 2:05 PM CDTX-RAY LEFT [...] t.Signed By: Buddy Davies MD, 09/13/2018 1:59 PMEastern [facility] HospitalOPHTHALMOLOGY RETINAL [id number] 12:04:34* Test Item Value Reference Range Interpretation Comments RETINAL SCAN-FINAL RESULT (test code = 43287) NORMAL Right Diabetic Retinopathy (test code = 894665) None Right Macular Edema (test code = 00182) None Right Other Suspected Conditions (test code = 77112) None Right Image Quality (test code = 12513) Gradeable Image Left Diabetic Retinopathy (test code = 80684) None Left Macular Edema (test code = 90885) None Left Other Suspected Conditions (test code = 12261) None Left Image Quality (test code = 70655) Gradeable Image VIDA (test code = VIDA) Retinal Study Result for DU CHAUDHARIDEANDRE JOEL, a 33 y/o, M (: 1985, )presented to [facility] on 09-13-2018 for a retinal [...] signed by Trev Coreas MD, , Taxonomy: [id number] on 09-13-2018 05:04:34 [facility] time. NOTE: Any pathology noted on this diabetic retinal evaluation should be confirmed by an appropriate ophthalmic examination. [facility] GLUCOSE POC docked [id number] 12:27:00* Test Item Value Reference Range Interpretation Comments Glucose POC (test code = 14107159) 154 mg/dL 74-106 H Lab Interpretation (test code = 61213-1) [facility]
[2019-07-22] MEDS ORDERED: SODIUM BICARBONATE 8.4% SYRING 150 ML in DEXTROSE 5% 1,000 ML IV ONE (12:00)
[2019-07-22] MEDS: INSULIN LISPRO 100 UNIT/1 ML 3ML VIAL SQ SCH ×3 (12:01→20:59)
[2019-07-22] MEDS: ONDANSETRON HCL INJ 2MG/ML 2ML 2 MG/ML VIAL IV PRN ×3 (12:09→20:59)
[2019-07-22] MEDS: HYDROMORPHONE 1MG/1ML INJ IV PRN ×3 (12:09→20:59)
--- NOTE | 2019-07-22 12:18 | NUR ---
[facility] [address] [address] Patient Name: FABY PHILIP #:[id number] : 1985Age/Sex: 34/M Admit Physician: Yanni #: [id number] Admit Date: 07/22/19Location/Room/Bed: ER- Renal Initial Consult Note History of Present Illness Chief Complaint: Abdominal Complaints History of Present Illness This is a 34 year old male PATIENT IN FROM HOME WITH COMPLAINTS OF RIGHT UPPER ABDOMINAL PAIN SINCE TUESDAY; RECENT ADMISSION FOR PANCREATITIS. PATIENT WAS DISCHARGED HOME ON 07/08/2019. PATIENT DENIES NAUSEA, VOMITING, OR DIARRHEA. PATIENT RATES PAIN 11/23 Historian: Patient Context: recent illness (RECENTLY HERE IN HOSPITAL FOR PANCREATITIS FROM 07/03-07/08/19, FOUND TO HAVE TRIGLYCERIDES OF ALMOST 2000.) Past Medical History Recent Fever: No Clinical Suspicion of Infection: No New/Unexplained Change in Ment: No Past Medical History: Hypertension, Diabetes, Hyperlipedemia Other Medical History: PANCREATITIS Past Surgical History: Cholecystectomy Social History Smoking Cessation: Current every day smoker Counseling Performed: Yes Alcohol Use: Occasional (SAYS HE HASN'T HAD ANY ALCOHOL SINCE HE WAS ADMITTED FOR PANCREATITIS) Any Illegal Drug Use: No TB Exposure/Symptoms: No Physically hurt or threatened: No Family History Family history of heart diseas: No Other Last Tetanus: UNKNOWN Any Pre-Existing Lines (PICC,: No Is patient up to date on immun: Yes Last Flu: OOD Last Pneumovax: NA Review of Systems Constitutional: no symptoms EENTM: no symptoms Cardiovascular: no symptoms Respiratory: no symptoms Gastrointestinal: abdominal pain Genitourinary: no symptoms Musculoskeletal: no symptoms Neurological: no symptoms Psychological: no symptoms Endocrine: no symptoms Hematological/Lymphatic: no symptoms Review of other systems All other systems reviewed and negative. Physical Exam Related Data Allergies: Coded Allergies: No Known Allergies (Unverified , 07/04/19) Triage Vital Signs Vital Signs Date Time TempPulseRespB/P (MAP)Pulse OxO2 DeliveryO2 Flow RateFiO2 07/22/19 07:[id number] Physical Exam CONSTITUTIONAL Constitutional: well-developed, well-nourished HENT HENT: normocephalic, atraumatic, oropharynx clear/moist, nose normal HENT L/R: left ext ear normal, right ext ear normal EYES- PERRL, conjunctivae normal NECK- ROM normal PULMONARY Pulmonary: effort normal, breath sounds normal CARDIOVASCULAR Cardiovascular: regular rhythm, heart sounds normal, capillary refill normal, normal rate GASTROINTESTINAL Abdominal: soft, tender (MOD TENDERNESS DORIE &RUQ WITHOUT R/G, HYPOACTIVE BOWEL SOUNDS) SKIN warm, dry NEUROLOGICAL Neurological: alert, oriented x 3, no gross motor or sensory deficits PSYCHOLOGICAL Psychological: mood/affect normal, judgement normal Results Laboratory Result Diagram: 07/22/19 0730 07/22/19 0730 Laboratory Laboratory Tests Test 07/22/19 09:006 08:306 08: 08:11 Lactic Acid Level 1.7 mmol/L (0.5-2.0)2.2 mmol/L (0.5-2.0) Urine Color Yellow (YELLOW) Urine ClarityClear (CLEAR) Urine pH5 (5 - 7) Urine Specific [place] 1.030 (1.010-1.025) Urine Protein Negative (NEGATIVE) Urine Glucose (UA)1+ (NEGATIVE) Urine Ketones Trace (NEGATIVE) Urine Blood Negative (NEGATIVE) Urine Nitrite Negative (NEGATIVE) Urine Bilirubin Negative (NEGATIVE) Urine Urobilinogen 0.2 mg/dL (0.2 - 1) Urine Leukocyte Esterase Negative (NEGATIVE) Urine RBC0-5 /HPF (0-5) Urine WBC0-5 /HPF (0-5) Urine Epithelial Cells None /LPF (NONE) Urine Bacteria None /HPF (NONE) Urine MucusFew (RARE) Urine Opiates Screen Positive (NEGATIVE) Urine Methadone Screen Negative (NEGATIVE) Urine Barbiturates Screen Negative (NEGATIVE) Urine Phencyclidine Screen Negative (NEGATIVE) Urine Amphetamines Screen Negative (NEGATIVE) Urine Methamphetamines Screen Negative (NEGATIVE) Urine Benzodiazepines Screen Negative (NEGATIVE) Urine Cocaine Screen Positive (NEGATIVE) Urine Cannabinoids Screen Negative (NEGATIVE) Salicylates Level < 5.0 mg/dL (0-30) Acetaminophen Level 4.2 ug/mL (10-30) Ethyl Alcohol Level < 10.0 mg/dL (0.0-10.0) Bedside Glucose 231 mg/dL (70-120) Test 07/22/19 07:30 White Blood Count 6.93 x10e3/uL (4.8-10.8) Red Blood Count 5.06 x10e6/uL (4.3-5.7) Hemoglobin 15.4 g/dL (14.0-18.0) Hematocrit 41.3 % (38.2-49.6) Mean Corpuscular Volume 81.6 fL (81-99) Mean Corpuscular Hemoglobin 30.4 pg (28-32) Mean Corpuscular Hemoglobin Equwgpk66.3 g/dL (31-35) Red Cell Distribution Width 12.6 % (11.7-14.4) Platelet Count 334 x10e3/uL (140-360) Neutrophils (%) (Auto) 50.1 % (38.7-80.0) Lymphocytes (%) (Auto) 37.4 % (18.0-39.1) Monocytes (%) (Auto) 5.9 % (4.4-11.3) Eosinophils (%) (Auto) 5.2 % (0.0-6.0) Basophils (%) (Auto) 1.0 % (0.0-1.0) Neutrophils # (Auto)3.5 (2.1-6.9) Lymphocytes # (Auto)2.6 (1.0-3.2) Monocytes # (Auto)0.4 (0.2-0.8) Eosinophils # (Auto)0.4 (0.0-0.4) Basophils # (Auto)0.1 (0.0-0.1) Absolute Immature Granulocyte (auto0.03 x10e3/uL (0-0.1) Sodium Level 131 mmol/L (136-145) Potassium Level 4.1 mmol/L (3.5-5.1) Chloride Level 98 mmol/L (98-107) Carbon Dioxide Level 6 mmol/L (22-29) Anion Gap 31.1 mmol/L (8-16) Blood Urea Nitrogen 11 mg/dL (7-26) Creatinine 0.74 mg/dL (0.72-1.25) Estimat Glomerular Filtration Rate> 60 ML/MIN (60-) BUN/Creatinine Ratio15 (6-25) Glucose Level 231 mg/dL (74-118) Calcium Level 9.8 mg/dL (8.4-10.2) Total Bilirubin 0.4 mg/dL (0.2-1.2) Aspartate Amino Transf (AST/SGOT)7 IU/L (5-34) Alanine Aminotransferase (ALT/SGPT)12 IU/L (0-55) Alkaline Phosphatase 112 IU/L (40-150) Total Protein 9.7 g/dL (6.5-8.1) Albumin 4.0 g/dL (3.5-5.0) Globulin 5.7 g/dL (2.3-3.5) Albumin/Globulin Ratio0.7 (0.8-2.0) Amylase Level 71 U/L (25-125) Cdeavk226 U/L (8-78) Laboratory Tests Test 07/22/19 09:006 08:306 08:206 08:11 Urine Color Yellow (YELLOW) Urine ClarityClear (CLEAR) Urine pH5 (5 - 7) Urine Specific [place] 1.030 (1.010-1.025) Urine Protein Negative (NEGATIVE) Urine Glucose (UA)1+ (NEGATIVE) Urine Ketones Trace (NEGATIVE) Urine Blood Negative (NEGATIVE) Urine Nitrite Negative (NEGATIVE) Urine Bilirubin Negative (NEGATIVE) Urine Urobilinogen 0.2 mg/dL (0.2 - 1) Urine Leukocyte Esterase Negative (NEGATIVE) Urine RBC0-5 /HPF (0-5) Urine WBC0-5 /HPF (0-5) Urine Epithelial Cells None /LPF (NONE) Urine Bacteria None /HPF (NONE) Urine MucusFew (RARE) Lactic Acid Level 2.2 mmol/L (0.5-2.0) Urine Opiates Screen Positive (NEGATIVE) Urine Methadone Screen Negative (NEGATIVE) Urine Barbiturates Screen Negative (NEGATIVE) Urine Phencyclidine Screen Negative (NEGATIVE) Urine Amphetamines Screen Negative (NEGATIVE) Urine Methamphetamines Screen Negative (NEGATIVE) Urine Benzodiazepines Screen Negative (NEGATIVE) Urine Cocaine Screen Positive (NEGATIVE) Urine Cannabinoids Screen Negative (NEGATIVE) Salicylates Level < 5.0 mg/dL (0-30) Acetaminophen Level 4.2 ug/mL (10-30) Ethyl Alcohol Level < 10.0 mg/dL (0.0-10.0) Bedside Glucose 231 mg/dL (70-120) Test 07/22/19 07:30 White Blood Count 6.93 x10e3/uL (4.8-10.8) Red Blood Count 5.06 x10e6/uL (4.3-5.7) Hemoglobin 15.4 g/dL (14.0-18.0) Hematocrit 41.3 % (38.2-49.6) Mean Corpuscular Volume 81.6 fL (81-99) Mean Corpuscular Hemoglobin 30.4 pg (28-32) Mean Corpuscular Hemoglobin Ldrijju66.3 g/dL (31-35) Red Cell Distribution Width 12.6 % (11.7-14.4) Platelet Count 334 x10e3/uL (140-360) Neutrophils (%) (Auto) 50.1 % (38.7-80.0) Lymphocytes (%) (Auto) 37.4 % (18.0-39.1) Monocytes (%) (Auto) 5.9 % (4.4-11.3) Eosinophils (%) (Auto) 5.2 % (0.0-6.0) Basophils (%) (Auto) 1.0 % (0.0-1.0) Neutrophils # (Auto)3.5 (2.1-6.9) Lymphocytes # (Auto)2.6 (1.0-3.2) Monocytes # (Auto)0.4 (0.2-0.8) Eosinophils # (Auto)0.4 (0.0-0.4) Basophils # (Auto)0.1 (0.0-0.1) Absolute Immature Granulocyte (auto0.03 x10e3/uL (0-0.1) Sodium Level 131 mmol/L (136-145) Potassium Level 4.1 mmol/L (3.5-5.1) Chloride Level 98 mmol/L (98-107) Carbon Dioxide Level 6 mmol/L (22-29) Anion Gap 31.1 mmol/L (8-16) Blood Urea Nitrogen 11 mg/dL (7-26) Creatinine 0.74 mg/dL (0.72-1.25) Estimat Glomerular Filtration Rate> 60 ML/MIN (60-) BUN/Creatinine Ratio15 (6-25) Glucose Level 231 mg/dL (74-118) Calcium Level 9.8 mg/dL (8.4-10.2) Total Bilirubin 0.4 mg/dL (0.2-1.2) Aspartate Amino Transf (AST/SGOT)7 IU/L (5-34) Alanine Aminotransferase (ALT/SGPT)12 IU/L (0-55) Alkaline Phosphatase 112 IU/L (40-150) Total Protein 9.7 g/dL (6.5-8.1) Albumin 4.0 g/dL (3.5-5.0) Globulin 5.7 g/dL (2.3-3.5) Albumin/Globulin Ratio0.7 (0.8-2.0) Amylase Level 71 U/L (25-125) Uexcpn785 U/L (8-78) Imaging Imaging results reviewed: Yes Impressions EXAMINATION: CHEST SINGLE (PORTABLE) INDICATION: ABD PAIN COMPARISON: Chest radiograph 07/04/19. FINDINGS: TUBES and LINES: None. LUNGS: Low lung volumes with vascular crowding. There is no evidence of pneumonia or pulmonary edema. PLEURA: No pleural effusion or pneumothorax. HEART AND MEDIASTINUM: The cardiomediastinal silhouette is unremarkable. BONES AND SOFT TISSUES: No acute osseous lesion. Soft tissues are unremarkable. UPPER ABDOMEN: No free air under the diaphragm. IMPRESSION: No acute thoracic abnormality. Signed by: Dr. Rina Allen MD on 07/22/2019 10:14 AM EXAM: CT Abdomen and Pelvis WITH contrast INDICATION: Abdominal pain, recent discharge for pancreatitis. COMPARISON: CT abdomen/pelvis 07-04-19. TECHNIQUE: Abdomen and pelvis were scanned utilizing a multidetector helical scanner from the lung base to the pubic symphysis after administration of IV contrast. Coronal and sagittal reformations were obtained. Routine protocol was performed. Scan was performed when during portal venous phase. IV CONTRAST: 100 cc of Isovue-370 ORAL CONTRAST: None COMPLICATIONS: None RADIATION DOSE: Total DLP: 748.7 mGy*cm Estimated effective dose: (DLP x 0.015 x size factor) mSv CTDIvol has been reviewed. It is below the limits set by the Radiation Protocol Committee (RPC). FINDINGS: LINES and TUBES: None. LOWER THORAX: Mild dependent atelectasis. HEPATOBILIARY: Diffuse hepatic steatosis. No evidence of focal lesion. No biliary ductal dilation. GALLBLADDER: Status post cholecystectomy. SPLEEN: No splenomegaly. PANCREAS: There has been interval decrease in pancreatic edema involving the pancreatic head and uncinate process with decreased mild residual peripancreatic stranding near the uncinate process. No evidence of pancreatic hypoenhancement or fluid collection. No focal masses or ductal dilatation. ADRENALS: No adrenal nodules KIDNEYS/URETERS: No evidence of hydronephrosis or stone. Small subcentimeter renal hypodensities are too small to characterize, likely cysts. GI TRACT: No evidence of wall thickening or distension. Appendix is normal. PELVIC ORGANS/BLADDER: Unremarkable. LYMPH NODES: No lymphadenopathy. VESSELS: Unremarkable. PERITONEUM / RETROPERITONEUM: No free air or fluid. BONES AND SOFT TISSUES: No acute osseous abnormality. Mild degenerative disc changes at L3-L4. No suspicious lytic or blastic lesions. Small right greater than left fat-containing inguinal hernias. CONCLUSION: Findings suggestive of resolving or recurrent mild acute edematous pancreatitis. No evidence of pancreatic hypoenhancement or fluid collection. Diffuse hepatic steatosis. Signed by: Dr. Rina Allen MD on 07/22/2019 10:45 AM ABG Interpretation ABG Results: ABG 1 (pH 7.33, pCO2 47.7, HCO3 25, pO2 98) Medications Pantoprazole Sodium 40 mg ONCE STAT IV Last administered on 07/22/19 07:53; Admin Dose 40 MG; Start 07/22/19 at 07:32; Stop 07/22/19 at 07:36; Status DC Hydromorphone HCl 1 mg ONCE STAT IV Last administered on 07/22/19 07:54; Admin Dose 1 MG; Start 07/22/19 at 07:32; Stop 07/22/19 at 07:36; Status DC Ondansetron HCl 4 mg ONCE STAT IV Last administered on 07/22/19 07:54; Admin Dose 4 MG; Start 07/22/19 at 07:32; Stop 07/22/19 at 07:36; Status DC Sodium Chloride 1,000 ml @ 0 mls/hr Q0M STAT IV Last administered on 07/22/19 07:53; Admin Dose 999 MLS/HR; Start 07/22/19 at 07:32; Stop 07/22/19 at 07:33; St atus DC Sodium Chloride 1,000 ml @ ud STK-MED ONCE .ROUTE ; Start 07/22/19 at 08:25; Stop 07/22/19 at 08:19; Status DC Sodium Chloride 1,000 ml @ 999 mls/hr ONCE ONCE IV Last administered on 07/22/19at 08:43; Admin Dose 999 MLS/HR; Start 07/22/19 at 08:45; Stop 07/22/19 at 0 9:45 Sodium Chloride 1,000 ml @ 999 mls/hr ONCE ONCE IV Last administered on 07/22/19at 09:08; Admin Dose 999 MLS/HR; Start 07/22/19 at 08:45; Stop 07/22/19 at 0 9:45 Sodium Chloride 50 ml @ ud STK-MED ONCE .ROUTE ; Start 07/22/19 at 09:13; Stop 07/22/19 at 09:08; Status DC Iopamidol 74,000 mg STK-MED ONCE INJ ; Start 07/22/19 at 09:14; Stop 07/22/19 at 09:08; Status DC Piperacillin Sod/ Tazobactam Sod 50 ml @ 50 mls/hr NOW ONCE IV ; Start 07/22/19 at 10:00; Stop 07/22/19 at 10:59 Assessment and Plan - - Severe high anion gap metabolic acidosis - Mixed disorder with Resp Acidosis based on CO2 in ABG - Cocaine toxicity - possible Metformin toxicity but can not be confirmed yet - ? DKA - Calculated OSM is 278. will need to get serum OSM to see if there is any Osmolar gap - Corrected Na for Glucose is 133 meq/L vs measured Na of 131 meq/L - K is within acceptable range Seems to be multifactorial but can not rule out sepsis from pancreatitis. Plan - - Start on Bicarb infusion at 150 meq/L - repeat BMP around 2 PM - will monitor recovery from acidosis - May need hemodialysis based on next bicarb levels - strict I & O - No NSAID - sepsis management as per ICU (patient will be transferred there) Update - 5. PM - Bicarb is slowly improving on bicarbonate infusion - will keep watching and hold dialysis for now, though will keep low threshold to start
[2019-07-22] MEDS ORDERED: HYDRALAZINE HCL 20 MG/ML VIAL IV PRN (15:00)
[2019-07-22 16:00] LABS: ANION GAP 22.8 mmol/L (8-16); BLOOD UREA NITROGEN 7 mg/dL (7-26); BUN/CREATININE RATIO 11 (6-25); CALCIUM 8.1 mg/dL (8.4-10.2); CARBON DIOXIDE 11 mmol/L (22-29); CHLORIDE 101 mmol/L (98-107); CREATININE, SERUM 0.64 mg/dL (0.72-1.25); EST GLOMERULAR FILTRATION RATE > 60 ML/MIN (60-); GLUCOSE 192 mg/dL (74-118); POTASSIUM 3.8 mmol/L (3.5-5.1); SODIUM 131 mmol/L (136-145)
[2019-07-22 16:22] LABS: CHOL/HDL RATIO 13.7 (3.9-4.7); CHOLESTEROL 343 MD/DL (0-199); HDL CHOLESTEROL 25 MG/DL (40-60)
[2019-07-22 17:55] LABS: TRIGLYCERIDES 2799 MG/DL (0-149)
--- NOTE | 2019-07-22 20:37 | NUR ---
Spoke to Dr. Velasquez's [facility] and notified of elevated diastolic BP at this time. She stated she will add some orders.
--- NOTE | 2019-07-22 21:15 | NUR ---
Received to 192 from ER. Placed on EKG, pulse ox & NBP for monitoring. Admission history, Initial admission assessment, & vaccine screen completed. IV Sodium Bicarb drip completed. Bilat IVs to antecubitals saline locked.
[2019-07-22] MEDS: AMLODIPINE BESYLATE 5 MG TAB PO SCH (22:13)
--- NOTE | 2019-07-22 23:26 | History and Physical ---
PRIMARY CARE PHYSICIAN: [place] [facility]. CHIEF COMPLAINT: Severe abdominal pain, right upper quadrant radiating to his back. HISTORY OF PRESENT ILLNESS: This is a 34-year-old male with past medical history of diabetes, high cholesterol, hypertension, and pancreatitis, who presented to the ER with complaints of severe right upper quadrant pain radiating to his back. He reports his pain initially started 3 days ago, but was not severe. He reports this morning he awoke and his pain was 10/10. He reports he was recently admitted for acute pancreatitis due to alcohol abuse. He reports his last use of alcohol was , which is about 2 weeks. He is noncompliant with his medications and denies any illicit drug use, but urine was positive for cocaine and opiates. He denies any chest pain, shortness of breath, cough, fever, chills, nausea, vomiting, or diarrhea. In the ER, he was noted to have metabolic acidosis with CO2 of 6 and blood sugar of 231. CT abdomen and pelvis showed resolving recurrent mild acute edematous pancreatitis. No evidence of pancreatic hypoenhancement or fluid collection. Lipase was 184, amylase 71. He had no respiratory symptoms. Alert, awake, oriented x3. Does not appear to be in DKA. The patient will be admitted for further evaluation and management of his acute pancreatitis. PAST MEDICAL HISTORY: 1. Hypertension. 2. Diabetes type 2. 3. High cholesterol. 4. Recurrent pancreatitis due to alcohol abuse. SURGICAL HISTORY: Reports cholecystectomy. FAMILY MEDICAL HISTORY: Reports both mother and father have diabetes and hypertension. SOCIAL HISTORY: He reports smoking a pack per week, he reports he quit alcohol use 2 weeks ago. He reports last use of cocaine was 3-4 days ago. ALLERGIES: NO KNOWN DRUG ALLERGIES. REVIEW OF SYSTEMS: GENERAL: No fever. LUNGS: No shortness of breath. CARDIOVASCULAR: No chest pain. GI: Severe right upper quadrant pain radiating to the back. NEURO: No dizziness. MUSCULOSKELETAL: Back pain. SKIN: No rash. PHYSICAL EXAMINATION: VITAL SIGNS: Temperature 98.5, pulse is 91, respirations 16, blood pressure 151/103, pulse ox is 99% on room air. GENERAL: No acute distress. HEENT: Normocephalic. LUNGS: Clear to auscultation. CARDIOVASCULAR: Regular rate and rhythm. NEURO: Alert, awake, oriented x3. MUSCULOSKELETAL: Moves all extremities. SKIN: Dry and intact. PSYCH: Calm. LABORATORY DATA: WBC 6.93, hemoglobin 15.4, hematocrit 41.3, platelet 334. Sodium 131, potassium 3.8. CO2 was 6, bicarb started, now up to 11. Anion gap 22.8. Creatinine is 0.6417. Estimated GFR greater than 60. Blood glucose 192. Calcium 8.1. Troponin less than 0.001. AST 7, ALT 12. Lactic acid 2.2, then 1.71. Triglycerides 2799, cholesterol 343, lipase 184, amylase 71. Toxicology; urine positive for opiates and cocaine, negative for alcohol. UA; trace ketones, negative otherwise. COVID PCR is pending. Blood and urine cultures pending. CT abdomen and pelvis shows resolving recurrent mild acute edematous pancreatitis, no evidence of fluid collection. Chest x-ray, no acute thoracic abnormality. IMPRESSION AND PLAN: 1. Acute on chronic pancreatitis due to history of alcohol abuse. CT abdomen and pelvis noted, no fluid collection. We will start on clear liquids, IV fluids, GI has been consulted. Triglycerides 2799. 2. Metabolic acidosis upon arrival. He was given NS 4 L in the ER with not much improvement on CO2. Currently changed to bicarb 125 per hour. CO2 is improving mildly, currently 11. We will continue with bicarb and recheck labs. Nephrology has been consulted. 3. Mild lactic acidosis, likely due to metformin use. Does not appear to be septic. Cultures have been sent. 4. Hyponatremia. Continue IV fluid hydration. 5. Uncontrolled diabetes. Hemoglobin A1c last month was 10.7. Noncompliant with medication, but is not in diabetic ketoacidosis. The sliding scale insulin before meals and at bedtime. 6. Hypertension. Does not remember what medication he takes for blood pressure. We will start on amlodipine daily and hydralazine as needed. 7. High cholesterol. Started Lopid p.o. b.i.d. 8. Deep vein thrombosis prophylaxis. SCDs. Dictated by JELENA Reeves Marisela Velasquez MD MY/MODL /[id number]
[2019-07-23] VITALS (20 sets, daily range): BP systolic 103–136; BP diastolic 67–117
[2019-07-23] MEDS: HYDROMORPHONE 1MG/1ML INJ IV PRN ×6 (01:09→22:07)
--- NOTE | 2019-07-23 01:09 | NUR ---
Medicated for c/o pain.
[2019-07-23 05:03] LABS: BASOPHILS % 0.6 % (0.0-1.0); EOSINOPHILS # (AUTO) 0.3 (0.0-0.4); EOSINOPHILS % 4.4 % (0.0-6.0); HEMATOCRIT 38.1 % (38.2-49.6); HEMOGLOBIN 13.1 g/dL (14.0-18.0); LYMPHOCYTES # (AUTO) 1.4 (1.0-3.2); MEAN CORPUSCULAR HEMOGLOBIN 28.1 pg (28-32); MEAN CORPUSCULAR HGB CONC 34.4 g/dL (31-35); MEAN CORPUSCULAR VOLUME 81.8 fL (81-99); MONOCYTES # (AUTO) 0.5 (0.2-0.8); MONOCYTES % 7.2 % (4.4-11.3); NEUTROPHILS # (AUTO) 4.5 (2.1-6.9); NEUTROPHILS % 66.4 % (38.7-80.0); PLATELET COUNT 260 x10e3/uL (140-360); RED BLOOD COUNT 4.66 x10e6/uL (4.3-5.7); RED CELL DISTRIBUTION WIDTH 12.8 % (11.7-14.4)
[2019-07-23 05:45] LABS: AMYLASE 203 U/L (25-125); ANION GAP 22.6 mmol/L (8-16); BLOOD UREA NITROGEN < 5 mg/dL (7-26); BUN/CREATININE RATIO 8 (6-25); CALCIUM 8.6 mg/dL (8.4-10.2); CARBON DIOXIDE 15 mmol/L (22-29); CHLORIDE 100 mmol/L (98-107); CREATININE, SERUM 0.62 mg/dL (0.72-1.25); EST GLOMERULAR FILTRATION RATE > 60 ML/MIN (60-); GLUCOSE 160 mg/dL (74-118); LIPASE 508 U/L (8-78); POTASSIUM 3.6 mmol/L (3.5-5.1); SODIUM 134 mmol/L (136-145)
[2019-07-23] MEDS: INSULIN LISPRO 100 UNIT/1 ML 3ML VIAL SQ SCH ×4 (07:50→21:24)
[2019-07-23] MEDS: GEMFIBROZIL 600 MG TAB PO SCH ×2 (08:28→17:42)
[2019-07-23] MEDS: SODIUM CHLORIDE 0.9% 1000ML 1,000 ML IV SCH ×3 (08:35→20:11)
[2019-07-23] MEDS: AMLODIPINE BESYLATE 5 MG TAB PO SCH (09:09)
--- NOTE | 2019-07-23 12:00 | NUR ---
Per Dr. Boothe pt can be downgraded to medical surgical floor if ok with attending . Jihan ENGEL informed and gave transfer orders for medical surgical floor with telemetry.
[2019-07-23] MEDS: ENOXAPARIN SOD INJ 40 MG/0.4 ML SYR SC SCH (18:26)
--- NOTE | 2019-07-23 21:54 | NUR ---
Patient refused bed alarm. RN explained risk but patient refused. Patient states "I'm good, I can walked by myself". I don't need help.
[2019-07-24] VITALS (12 sets, daily range): BP systolic 112–129; BP diastolic 82–95
--- NOTE | 2019-07-24 01:51 | Progress Note ---
DATE: 07/23/2019 CONSULTANTS: 1. Dr. Boothe with Nephrology. 2. Dr. Ramirez with GI. CHIEF COMPLAINT: Severe abdominal pain radiating to his back. SUBJECTIVE: The patient is transferring from ICU to [facility]. He reports abdominal pain is somewhat improved. He is able to tolerate clear liquid diet. He denies any chest pain, shortness of breath, fever, or chills. PHYSICAL EXAMINATION: VITAL SIGNS: Temperature 98.1, pulse is 98, respirations 22, blood pressure 129/81, and pulse ox is 98% on room air. GENERAL: In no acute distress. HEENT: Normocephalic and atraumatic. NECK: Supple. CARDIOVASCULAR: Regular rate and rhythm. LUNGS: Clear to auscultation. ABDOMEN: Soft and obese, right upper quadrant tenderness. NEUROLOGIC: Alert, awake, and oriented x3. MUSCULOSKELETAL: Moves all extremities. SKIN: Dry and intact. LABORATORY DATA: WBC 6.8, hemoglobin 13.1, hematocrit 38.1, and platelets 260. Sodium 134, potassium 3.6, CO2 of 15, BUN is less than 5, creatinine 0.62, estimated GFR is greater than 60. Blood glucose 160. Amylase 203, lipase 508. COVID is pending. Blood culture is negative so far. Urine culture no growth. IMPRESSION: 1. Fyyhu-bb-oyoutvx pancreatitis due to history of alcohol abuse. CT abdomen and pelvis shows recurrent pancreatitis with no fluid collection. We will continue on clear liquid diet and IV fluid hydration. GI has been consulted and will continue to treat pain as needed. 2. Metabolic acidosis upon arrival. Status post normal saline and bicarb infusion. Currently, CO2 is improved to 15. Nephrology has been consulted. We will continue with IV fluids and repeat labs in a.m. 3. Mild lactic acidosis, resolved. Likely due to metformin use. Cultures have been negative. Does not appear to be septic. 4. Hyponatremia. Continue NS. 5. Uncontrolled diabetes. Hemoglobin A1c was 10.7. Noncompliant with medication. We will continue sliding scale insulin a.c. and at bedtime. 6. Hypertension. Continue amlodipine daily and hydralazine as needed. 7. High cholesterol. Triglycerides 2799. Continue Lopid p.o. b.i.d. 8. Alcohol abuse. Advised cessation. 9. Obesity. 10. Deep vein thrombosis prophylaxis, Lovenox. PLAN: Plan is to continue current treatment. If abdominal pain continues to improve, we will advance diet as tolerated. Dictated by Jihan Jacob, ANP MD VINNIE Chin/SAILAJAL /[id number]
[2019-07-24] MEDS: HYDROMORPHONE 1MG/1ML INJ IV PRN ×4 (02:29→20:06)
[2019-07-24] MEDS: SODIUM CHLORIDE 0.9% 1000ML 1,000 ML IV SCH ×2 (05:38→18:40)
[2019-07-24] MEDS: GEMFIBROZIL 600 MG TAB PO SCH ×2 (07:59→15:58)
[2019-07-24] MEDS: AMLODIPINE BESYLATE 5 MG TAB PO SCH (07:59)
--- NOTE | 2019-07-24 08:09 | NUR ---
PATIENT REPORTS ABDOMINAL PAIN 8/ THAT IS RELIEVED WITH DILAUDED 1 MG. STATES THE PAIN INCREASES AFTER HE HAS HIS DIET. MOANING AND GUARDING WHEN ASKING FOR PAIN MEDICATION
[2019-07-24] MEDS: INSULIN LISPRO 100 UNIT/1 ML 3ML VIAL SQ SCH ×4 (09:28→21:00)
--- NOTE | 2019-07-24 11:12 | NUR ---
CALLED DR. MCKAY FOR CONSULT, DR. PAULINO IS [employer]. LEFT MESSAGE WITH OFFICE FOR CONSULT
--- NOTE | 2019-07-24 13:08 | NUR ---
DR. PAULINO HERE AND SAW PATIENT
[2019-07-24 15:56] LABS: ANION GAP 16.5 mmol/L (8-16); BLOOD UREA NITROGEN < 5 mg/dL (7-26); CALCIUM 9.3 mg/dL (8.4-10.2); CARBON DIOXIDE 21 mmol/L (22-29); CHLORIDE 103 mmol/L (98-107); CREATININE, SERUM 0.68 mg/dL (0.72-1.25); EST GLOMERULAR FILTRATION RATE > 60 ML/MIN (60-); GLUCOSE 114 mg/dL (74-118); POTASSIUM 3.5 mmol/L (3.5-5.1); SODIUM 137 mmol/L (136-145)
[2019-07-24 15:57] LABS: BUN/CREATININE RATIO 7 (6-25)
--- NOTE | 2019-07-24 15:59 | Progress Note ---
DATE: 07/24/2019 CONSULTANTS: 1. Dr. Boothe with Nephrology. 2. Dr. Ramirez with GI. CHIEF COMPLAINT: Severe abdominal pain radiating to his back. SUBJECTIVE: The patient reports abdominal pain is mildly improved. Rates pain 6/10. He reports the pain worsens with clear liquids. He denies any chest pain, shortness of breath, nausea, vomiting, fever or chills. PHYSICAL EXAMINATION: VITAL SIGNS: Temperature 98.5, pulse is 96, respirations 16, blood pressure 112/83, pulse ox 97% on room air. GENERAL: No acute distress. HEENT: Normocephalic, atraumatic. NECK: Supple. CARDIOVASCULAR: Regular rate and . LUNGS: Clear to auscultation. ABDOMEN: Soft and obese with right upper quadrant tenderness. NEUROLOGIC: Alert, awake, and oriented x3. MUSCULOSKELETAL: Moves all extremities. SKIN: Dry and intact. IMPRESSION: 1. Acute on chronic pancreatitis due to history of alcohol abuse. May also be due to triglycerides. CT abdomen and pelvis shows recurrent pancreatitis with no abscess. We will continue with IV fluid hydration and pain management. GI has been consulted and we will keep n.p.o. for right now. 2. Metabolic acidosis upon arrival. Continue IV fluids. CO2 improving. We will repeat BMP today. Nephrology is on the case. 3. Mild lactic acidosis upon arrival. Now resolved. Questionable metformin induced or drug induced. Cultures are negative so far. 4. Hyponatremia. Continue NS. 5. Uncontrolled diabetes. Hemoglobin A1c is 10.7. Noncompliant with medication. We will continue sliding scale insulin before meals and at bedtime. 6. Hypertension. Continue Norvasc and hydralazine as needed. 7. High cholesterol. Triglycerides 2799. Continue Lopid p.o. b.i.d. 8. Obesity. 9. Noncompliant with medication. 10. Deep vein thrombosis prophylaxis. Continue Lovenox. PLAN: Plan is to continue IV fluids and pain management. Keep n.p.o. Further rec per GI and Nephrology. Dictated by JELENA Reeves Yiching Aaron Velasquez MD MY/MODL /[id number]
[2019-07-24] MEDS: ENOXAPARIN SOD INJ 40 MG/0.4 ML SYR SC SCH (16:45)
--- NOTE | 2019-07-24 19:09 | Consultation ---
DATE OF CONSULTATION: 07/24/2019 HISTORY OF PRESENT ILLNESS: This is 34 years old, who was recently discharged home because of problems with acute pancreatitis, presented to the hospital again because of abdominal pain, and the patient denies any nausea or vomiting along with this problem and workup revealed that his amylase of 203 and lipase of 508. CAT scan did show pancreatitis. He has history of alcohol abuse. He claims that he has been drinking since he went home. He also has history of hypertension, diabetes, hypercholesterolemia, and status post cholecystectomy. ALLERGIES: NONE. SOCIAL HISTORY: He smokes a pack per day, and also history of alcohol abuse, but apparently he did not drink for the last two weeks. He uses cocaine. REVIEW OF SYSTEMS: Otherwise unremarkable. PHYSICAL EXAMINATION: GENERAL: The patient is awake and alert, appears to be stable. VITAL SIGNS: Afebrile, currently with stable vital signs. HEAD, EYES, EARS, NOSE, AND THROAT: Normocephalic, atraumatic. Sclerae anicteric. NECK: Supple. HEART: Regular. LUNGS: Clear. ABDOMEN: Soft. There is tenderness in the epigastric area. There is no rebound or mass. EXTREMITIES: No clubbing or cyanosis. LAB VALUES: His amylase of 203 yesterday, lipase of 508, BUN of less than 5, creatinine of 0.62. CBC was okay and CAT scan show edematous pancreatitis and fatty liver. IMPRESSION: 1. Persistent pancreatitis. 2. History of alcohol abuse. 3. Fatty liver. RECOMMENDATIONS: We will keep n.p.o. at this point with IV fluids as well as pain control. Follow labs and clinically. Jr Vasquez MD DHD/MODL /[id number] cc: Marisela Velasquez MD
--- NOTE | 2019-07-24 19:10 | NUR ---
RECEIVED REPORT FROM PREVIOUS NURSE. CALL LIGHT WITHIN REACH. PATIENT IN BED.
[2019-07-24] MEDS: ONDANSETRON HCL INJ 2MG/ML 2ML 2 MG/ML VIAL IV PRN (20:06)
[2019-07-25] VITALS (8 sets, daily range): BP systolic 103–137; BP diastolic 54–95
[2019-07-25] MEDS: ONDANSETRON HCL INJ 2MG/ML 2ML 2 MG/ML VIAL IV PRN ×3 (00:20→23:54)
[2019-07-25] MEDS: HYDROMORPHONE 1MG/1ML INJ IV PRN ×6 (00:20→23:54)
[2019-07-25] MEDS: SODIUM CHLORIDE 0.9% 1000ML 1,000 ML IV SCH ×2 (04:50→23:41)
--- NOTE | 2019-07-25 07:04 | NUR ---
GAVE BEDSIDE SHIFT REPORT TO ONCOMING NURSE. CALL LIGHT WITHIN REACH. PATIENT IN BED. HOURLY ROUNDING PERFORMED.
[2019-07-25] MEDS: INSULIN LISPRO 100 UNIT/1 ML 3ML VIAL SQ SCH ×4 (07:30→20:34)
[2019-07-25] MEDS: GEMFIBROZIL 600 MG TAB PO SCH ×2 (08:56→17:35)
--- NOTE | 2019-07-25 16:50 | Progress Note ---
DATE: 07/25/2019 CONSULTANTS: 1. Dr. Boothe with Nephrology. 2. Dr. Ramirez with GI. CHIEF COMPLAINT: Severe abdominal pain radiating to the right upper back. SUBJECTIVE: The patient is seen resting in bed with no acute distress. He reports pain is about the same, rating it 5/10. He is n.p.o. with IV fluid hydration. He denies any chest pain, shortness of breath, nausea, or vomiting. He reports diarrhea. PHYSICAL EXAMINATION: VITAL SIGNS: Temperature 98.3, pulse is 77, respirations 16, blood pressure 121/88, and pulse ox is 99% on room air. GENERAL: No acute distress. Obese. HEENT: Normocephalic and atraumatic. NECK: Supple. CARDIOVASCULAR: Regular rate and rhythm. LUNGS: Clear to auscultation. ABDOMEN: Soft with right upper quadrant tenderness, obese. NEUROLOGIC: Alert, awake, and oriented x3. MUSCULOSKELETAL: Moves all extremities. SKIN: Dry. LABORATORY DATA: Lipase 63. IMPRESSION: 1. Ikovt-bh-hljglrn pancreatitis due to history of alcohol abuse. Continue n.p.o. status with IV fluid hydration and pain management as needed. GI has been consulted. We will appreciate input. 2. Metabolic acidosis upon arrival. Continue with IV fluids. CO2 improving. Renal on the case. 3. Mild lactic acidosis upon arrival. Now resolved. Questionable metformin-induced. Cultures are negative, not septic. 4. Hyponatremia. Resolved. Sodium is 137. 5. Uncontrolled diabetes. Hemoglobin A1c 10.7 last admission. Noncompliance with medication. Sliding scale insulin before meals and at bedtime. 6. Hypertension. Continue Norvasc and hydralazine. 7. High cholesterol. Triglyceride was 2799. Continue Lopid b.i.d. 8. Obesity. 9. Deep vein thrombosis prophylaxis. Continue Lovenox. PLAN: To continue with IV fluids, keep n.p.o., pain management as needed. Further recommendations per GI. Dictated by JELENA Reeves Marisela Velasquez MD MY/MODL /[id number]
[2019-07-25] MEDS: ENOXAPARIN SOD INJ 40 MG/0.4 ML SYR SC SCH (17:35)
[2019-07-25] MEDS: AMLODIPINE BESYLATE 5 MG TAB PO SCH (17:35)
--- NOTE | 2019-07-25 19:04 | NUR ---
RECEIVED REPORT FROM PREVIOUS NURSE. CALL LIGHT WITHIN REACH. PATIENT IN BED.
[2019-07-25] MEDS: ACETAMINOPHEN/CODEINE 300MG - 30MG TAB PO PRN (22:20)
[2019-07-26] VITALS: BP 116/89
[2019-07-26 04:00] VITALS: BP 121/89
[2019-07-26] MEDS: ONDANSETRON HCL INJ 2MG/ML 2ML 2 MG/ML VIAL IV PRN (06:21)
[2019-07-26] MEDS: HYDROMORPHONE 1MG/1ML INJ IV PRN ×2 (06:21→12:48)
--- NOTE | 2019-07-26 07:13 | NUR ---
GAVE BEDSIDE SHIFT REPORT TO ONCOMING NURSE. CALL LIGHT WITHIN REACH. PATIENT IN BED. HOURLY ROUNDING PERFORMED.
[2019-07-26 07:29] VITALS: BP 128/81
[2019-07-26] MEDS: INSULIN LISPRO 100 UNIT/1 ML 3ML VIAL SQ SCH ×3 (07:30→16:39)
[2019-07-26 07:44] VITALS: BP 128/81
[2019-07-26] MEDS: GEMFIBROZIL 600 MG TAB PO SCH ×2 (08:44→16:48)
[2019-07-26] MEDS: AMLODIPINE BESYLATE 5 MG TAB PO SCH (08:45)
[2019-07-26] MEDS: ACETAMINOPHEN/CODEINE 300MG - 30MG TAB PO PRN ×2 (09:15→16:49)
--- NOTE | 2019-07-26 09:40 | NUR ---
GAVE PACKET OF INFORMATION WITH COMMUNITY [facility] FOR ASSISTANCE WITH LOW TO NO INCOME TO PATIENT. RESOURCES THAT PATIENT MAY BE ABLE TO FOLLOW UP UPON DISCHARGE. PT EDUCATED ON EACH RESOURCE AND UNDERSTANDING HOW TO FOLLOW UP TO SEE IF QUALIFIED FOR EACH RESOURCE.
[2019-07-26 11:29] VITALS: BP 116/82
[2019-07-26] MEDS ORDERED: GLIPIZIDE5 MG PO (15:25)
[2019-07-26] MEDS ORDERED: NORVASC5 MG PO (15:25)
[2019-07-26] MEDS ORDERED: TYLENOL # 31 EA PO (15:25)
[2019-07-26] MEDS ORDERED: GEMFIBROZIL600 MG PO (15:25)
[2019-07-26 15:46] VITALS: BP 118/86
[2019-07-26] MEDS: ENOXAPARIN SOD INJ 40 MG/0.4 ML SYR SC SCH (16:48)
--- NOTE | 2019-07-26 18:57 | NUR ---
Pt discharged home at this time. Pt is aox3 and able to verbalize at time of discharge. 0 s/s of acute distress noted. Pt verbalized understanding of all discharge of instructions and follow up appointments. Pt was discharged with 4 prescriptions.
--- NOTE | 2019-07-27 04:41 | Discharge Summary ---
PCP: [facility]. FINAL DISCHARGE DIAGNOSES: 1. Acute on chronic pancreatitis. 2. Metabolic acidosis on arrival. 3. Mild lactic acidosis. 4. Hyponatremia. 5. Uncontrolled diabetes. 6. Hypertension. 7. High cholesterol. 8. History of alcohol and cocaine abuse. CONSULTANTS: 1. Dr. Boothe with Nephrology. 2. Dr. Vasquez with GI. PROCEDURES: None. HISTORY: Per HPI. HOSPITAL COURSE: This is a 34-year-old male, who presented to the ER with complaints of severe abdominal pain. CT of abdomen and pelvis showed resolving or recurrent mild acute edematous pancreatitis with no evidence of pancreatic hypoenhancement or fluid collection. He was started on clear liquids, and IV fluid hydration. He was also noted to be in metabolic acidosis, likely due to drug abuse. Nephrology was consulted, he was started on bicarb and monitored in the ICU. He was transferred out of ICU. Once bicarb improved, he was started on clear liquids and advance the diet as tolerated. He remained stable. Vital signs stable, afebrile. Cultures negative and tolerating diet. We will discharge home today on Lopid for his elevated triglycerides of 2790. We will discontinue metformin due to his lactic acidosis and start glipizide. He is also advised on the importance of alcohol and illicit drug cessation, he verbalized understanding. PHYSICAL EXAMINATION: VITAL SIGNS: Temperature 97.8, pulse is 79, respirations 20, blood pressure 118/86, pulse ox 99% on room air. GENERAL: No acute distress. CARDIOVASCULAR: Regular rate and rhythm. LUNGS: Clear to auscultation. ABDOMEN: Soft and nontender. NEUROLOGIC: Alert, awake, and oriented x3. SKIN: Dry and intact. CONDITION AT DISCHARGE: Improved and stable. DISCHARGE MEDICATIONS: Please see medication reconciliation list. FOLLOWUP: Follow up with PCP and GI in 1 to 2 weeks. TIME SPENT: Total discharge time is 32 minutes. Dictated by JELENA Reeves Marisela Velasquez MD MY/MODL /[id number] cc: [facility]
== END 2019-07-26 18:57 | disposition home or self-care (01) | DRG 439 ==
LOC: ER 07:20 → ERHOLD 11:05 → ICU 21:24 → MED/SURG 07-23 14:27
PROVIDERS: ADMIT Internal Medicine; ATTEND Internal Medicine
DX: K85.20 Alcohol induced acute pancreatitis without necrosis or infection (principal); E87.4 Mixed disorder of acid-base balance; E87.1 Hypo-osmolality and hyponatremia; K86.1 Other chronic pancreatitis; K86.0 Alcohol-induced chronic pancreatitis; E78.00 Pure hypercholesterolemia, unspecified; F14.11 Cocaine abuse, in remission; I10 Essential (primary) hypertension; K76.0 Fatty (change of) liver, not elsewhere classified; E11.9 Type 2 diabetes mellitus without complications; Z91.14 Patient's other noncompliance with medication regimen; E11.65 Type 2 diabetes mellitus with hyperglycemia; E66.9 Obesity, unspecified; Z68.37 Body mass index [BMI] 37.0-37.9, adult
CPT/HCPCS: 36415; 36600; 71045; 74177; 80048; 80053; 80061; 80307; 80320; 80329; 81001; 82150; 82550; 82553; 82948; 83605; 83690; 84484; 85025; 87040; 87086; 87635; 93005; 99284; J1170; J1650; J1817; J2270; J2405; J2543; J7030; J7070; Q9967

== ENCOUNTER 2019-09-10 14:02 | Inpatient (IN) | payer SELFPAY ==
[~2019-09-10] VITALS: Ht 315 cm; Wt 100.2 kg
[~2019-09-10 14:02] MED LIST changes: +GEMFIBROZIL600 MG PO; +GLIPIZIDE5 MG PO; +NORVASC5 MG PO; +TYLENOL # 31 EA PO
[2019-09-10] MEDS ORDERED: KETOROLAC TROMETHAMINE 30 MG/ML VIAL IV STA (14:11)
[2019-09-10 14:23] LABS: BASOPHILS # (AUTO) 0.1 (0.0-0.1); BASOPHILS % 1.1 % (0.0-1.0); EOSINOPHILS # (AUTO) 0.2 (0.0-0.4); EOSINOPHILS % 3.1 % (0.0-6.0); HEMATOCRIT 40.8 % (38.2-49.6); HEMOGLOBIN 14.7 g/dL (14.0-18.0); LYMPHOCYTES # (AUTO) 1.6 (1.0-3.2); LYMPHOCYTES % 30.1 % (18.0-39.1); MEAN CORPUSCULAR HEMOGLOBIN 29.6 pg (28-32); MEAN CORPUSCULAR VOLUME 82.1 fL (81-99); MONOCYTES # (AUTO) 0.5 (0.2-0.8); MONOCYTES % 9.2 % (4.4-11.3); NEUTROPHILS % 55.9 % (38.7-80.0); PLATELET COUNT 281 x10e3/uL (140-360); RED BLOOD COUNT 4.97 x10e6/uL (4.3-5.7); RED CELL DISTRIBUTION WIDTH 13.2 % (11.7-14.4)
[2019-09-10 14:29] LABS: BILIRUBIN,URINE SMALL (NEGATIVE); CLARITY,URINE SL CLOUDY (CLEAR); COLOR,URINE YELLOW (YELLOW); KETONES,URINE 1+ (NEGATIVE); LEUKOCYTE ESTERASE ,URINE NEGATIVE (NEGATIVE); NITRITE,URINE NEGATIVE (NEGATIVE); PROTEIN,URINE DIPSTICK NEGATIVE (NEGATIVE); URINE UROBILINOGEN 0.2 mg/dL (0.2 - 1)
[2019-09-10 14:42] LABS: ALANINE AMINOTRANSFERASE 35 IU/L (0-55); ALBUMIN 3.9 g/dL (3.5-5.0); ALBUMIN/GLOBULIN RATIO 0.9 (0.8-2.0); ALKALINE PHOSPHATASE 80 IU/L (40-150); AMYLASE 73 U/L (25-125); ANION GAP 14.2 mmol/L (8-16); BLOOD UREA NITROGEN 15 mg/dL (7-26); BUN/CREATININE RATIO 18 (6-25); CALCIUM 9.1 mg/dL (8.4-10.2); CARBON DIOXIDE 20 mmol/L (22-29); CHLORIDE 97 mmol/L (98-107); CREATININE, SERUM 0.85 mg/dL (0.72-1.25); EST GLOMERULAR FILTRATION RATE > 60 ML/MIN (60-); GLUCOSE 326 mg/dL (74-118); LIPASE 178 U/L (8-78); POTASSIUM 4.2 mmol/L (3.5-5.1); SODIUM 127 mmol/L (136-145)
[2019-09-10 14:44] LABS: BACTERIA,URINE RARE /HPF; MUCUS,URINE FEW (RARE)
--- NOTE | 2019-09-10 15:28 | Diagnostic Imaging Report ---
EXAM: CT Abdomen and Pelvis WITHOUT intravenous contrast INDICATION: Flank pain COMPARISON: CT abdomen and pelvis of 07/22/2019 TECHNIQUE: Abdomen and pelvis were scanned utilizing a multidetector helical scanner from the lung base to the pubic symphysis without administration of IV contrast. Coronal and sagittal reformations were obtained. IV CONTRAST: None ORAL CONTRAST: Water COMPLICATIONS: None RADIATION DOSE: Total DLP: 736 mGy*cm Dose modulation, iterative reconstruction, and/or weight based adjustment of the mA/kV was utilized to reduce the radiation dose to as low as reasonably achievable. FINDINGS: LOWER THORAX: Normal. HEPATOBILIARY: Diffuse hepatic steatosis. No focal liver lesion. Status post cholecystectomy. SPLEEN: No splenomegaly. PANCREAS: Mild peripancreatic fat stranding, slightly more prominent compared to 07/22/2019. No focal mass or ductal dilation. ADRENALS: No adrenal nodules. KIDNEYS/URETERS: No hydronephrosis, stones, or solid mass lesions. PELVIC ORGANS/BLADDER: Unremarkable. PERITONEUM / RETROPERITONEUM: No free air or fluid. LYMPH NODES: No lymphadenopathy. VESSELS: Unremarkable. GI TRACT: No bowel wall thickening. No bowel obstruction. Normal appendix. BONES AND SOFT TISSUES: No acute osseous injury. No suspicious lytic or blastic lesions. IMPRESSION: Mild peripancreatic fat stranding, slightly more prominent compared to 07/22/2019. Findings may represent residual changes related to prior pancreatitis seen in June 2019 versus mild recurrent acute pancreatitis. Diffuse hepatic steatosis. Signed by: Asaf Pérez MD on 09/10/2019 3:24 PM
[2019-09-10] MEDS ORDERED: SODIUM CHLORIDE 0.9% 1000ML 1,000 ML IV STA (15:59)
[2019-09-10] MEDS ORDERED: PANTOPRAZOLE 40 MG 10ML VIAL IV STA (15:59)
--- NOTE | 2019-09-10 16:15 | Emergency Department Note ---
History of Present Illnes History of Present Illness Chief Complaint: Abdominal Complaints History of Present Illness This is a 34 year old male hief Complaint Comment BACK AND ABD PAIN ACROSS BOTH. ONSET LAST NIGHT, INTERMITTANT WITH NAUSEA. NO FEVERS NO DIARRHEA. HX PANCREATIS, GALLBLADDER GONE. PT STATES HX HTN, DM, HIGH CHOL WELL. PT STATES HASNT DRANK ETOH IN WKS. PT AAOX4. AMBULATORY. . Historian: Patient Arrival Mode: Car Onset (how long ago): day(s) (1) Location: EPIGASTRIC Quality: DULL Radiation: Denies non-radiation, Denies back, Denies neck, Denies extremity, Denies abdomen, Denies periumbilical, Denies flank, Denies proximal, Denies distal, Denies other Severity: moderate Onset quality: gradual Duration (how long): day(s) (1) Timing of current episode: constant Progression: waxing and waning Chronicity: new Context: Denies recent illness, Denies recent surgery, Denies recent immobilization, Denies recent travel, Denies trauma/injury, Denies new medications, Denies hx of DVT/PE, Denies non-compliance w/ medications, Denies other Relieving factors: none Exacerbating factors: none Associated symptoms: Reports nausea/vomiting; Denies denies other symptoms, Denies confusion, Denies chest pain, Denies cough, Denies diaphoresis, Denies fever/chills, Denies headaches, Denies loss of appetite, Denies malaise, Denies rash, Denies seizure, Denies shortness of breath, Denies syncope, Denies weakness, Denies other Treatments prior to arrival: none Past Medical/Family History Physician Review I have reviewed the patient's past medical and family history. Any updates have been documented here. Past Medical History Recent Fever: No Clinical Suspicion of Infectio: No New/Unexplained Change in Ment: No Past Medical History: Hypertension, Diabetes, Hyperlipedemia Other Medical History: PANCREATITIS Past Surgical History: Cholecysctectomy Social History Smoking Cessation: Current every day smoker Counseling Performed: No Alcohol Use: Occasional Any Illegal Drug Use: No Other Last Tetanus: UNKNOWN Any Pre-Existing Lines (PICC,: No Review of Systems Review of Systems Constitutional: Reports no symptoms EENTM: Reports no symptoms Cardiovascular: Reports no symptoms Respiratory: Reports no symptoms Gastrointestinal: Reports as per HPI Genitourinary: Reports no symptoms Musculoskeletal: Reports no symptoms Integumentary: Reports no symptoms Neurological: Reports no symptoms Psychological: Reports no symptoms Endocrine: Reports no symptoms Hematological/Lymphatic: Reports no symptoms Physical Exam Related Data Allergies: Coded Allergies: No Known Allergies (Unverified , 07/04/19) Triage Vital Signs Vital Signs Date Time Temp Pulse Resp B/P (MAP) Pulse Ox O2 Delivery O2 Flow Rate FiO2 09/10/19 14:03 98.5 113 16 141/97 99 Room Air Vital signs reviewed: Yes Physical Exam CONSTITUTIONAL Constitutional: Present well-developed, Present well-nourished HENT HENT: Present normocephalic, Present atraumatic, Present oropharynx clear/moist, Present nose normal HENT L/R: Present left ext ear normal, Present right ext ear normal EYES Eyes: Reports PERRL, Reports conjunctivae normal NECK Neck: Present ROM normal PULMONARY Pulmonary: Present effort normal, Present breath sounds normal CARDIOVASCULAR Cardiovascular: Present regular rhythm, Present heart sounds normal, Present capillary refill normal, Present normal rate GASTROINTESTINAL Abdominal: Present soft, Present bowel sounds normal, Present tender (EPIGASTRIC) GENITOURINARY Genitourinary: Present exam deferred SKIN Skin: Present warm, Present dry MUSCULOSKELETAL Musculoskeletal: Present ROM normal NEUROLOGICAL Neurological: Present alert, Present oriented x 3, Present no gross motor or sensory deficits PSYCHOLOGICAL Psychological: Present mood/affect normal, Present judgement normal Results Laboratory Result Diagram: 09/10/19 1412 09/10/19 1412 Laboratory Laboratory Tests Test 09/10/19 14:12 White Blood Count 5.41 x10e3/uL (4.8-10.8) Red Blood Count 4.97 x10e6/uL (4.3-5.7) Hemoglobin 14.7 g/dL (14.0-18.0) Hematocrit 40.8 % (38.2-49.6) Mean Corpuscular Volume 82.1 fL (81-99) Mean Corpuscular Hemoglobin 29.6 pg (28-32) Mean Corpuscular Hemoglobin Concent 36.0 g/dL (31-35) Red Cell Distribution Width 13.2 % (11.7-14.4) Platelet Count 281 x10e3/uL (140-360) Neutrophils (%) (Auto) 55.9 % (38.7-80.0) Lymphocytes (%) (Auto) 30.1 % (18.0-39.1) Monocytes (%) (Auto) 9.2 % (4.4-11.3) Eosinophils (%) (Auto) 3.1 % (0.0-6.0) Basophils (%) (Auto) 1.1 % (0.0-1.0) Neutrophils # (Auto) 3.0 (2.1-6.9) Lymphocytes # (Auto) 1.6 (1.0-3.2) Monocytes # (Auto) 0.5 (0.2-0.8) Eosinophils # (Auto) 0.2 (0.0-0.4) Basophils # (Auto) 0.1 (0.0-0.1) Absolute Immature Granulocyte (auto 0.03 x10e3/uL (0-0.1) Urine Color Yellow (YELLOW) Urine Clarity Sl cloudy (CLEAR) Urine pH 6 (5 - 7) Urine Specific [place] 1.025 (1.010-1.025) Urine Protein Negative (NEGATIVE) Urine Glucose (UA) 2+ (NEGATIVE) Urine Ketones 1+ (NEGATIVE) Urine Blood Negative (NEGATIVE) Urine Nitrite Negative (NEGATIVE) Urine Bilirubin Small (NEGATIVE) Urine Urobilinogen 0.2 mg/dL (0.2 - 1) Urine Leukocyte Esterase Negative (NEGATIVE) Urine RBC None /HPF (0-5) Urine WBC None /HPF (0-5) Urine Epithelial Cells None /LPF (NONE) Urine Bacteria Rare /HPF (NONE) Urine Mucus Few (RARE) Sodium Level 127 mmol/L (136-145) Potassium Level 4.2 mmol/L (3.5-5.1) Chloride Level 97 mmol/L (98-107) Carbon Dioxide Level 20 mmol/L (22-29) Anion Gap 14.2 mmol/L (8-16) Blood Urea Nitrogen 15 mg/dL (7-26) Creatinine 0.85 mg/dL (0.72-1.25) Estimat Glomerular Filtration Rate > 60 ML/MIN (60-) BUN/Creatinine Ratio 18 (6-25) Glucose Level 326 mg/dL (74-118) Calcium Level 9.1 mg/dL (8.4-10.2) Total Bilirubin 0.4 mg/dL (0.2-1.2) Aspartate Amino Transf (AST/SGOT) 28 IU/L (5-34) Alanine Aminotransferase (ALT/SGPT) 35 IU/L (0-55) Alkaline Phosphatase 80 IU/L (40-150) Total Protein 8.1 g/dL (6.5-8.1) Albumin 3.9 g/dL (3.5-5.0) Globulin 4.2 g/dL (2.3-3.5) Albumin/Globulin Ratio 0.9 (0.8-2.0) Amylase Level 73 U/L (25-125) Lipase 178 U/L (8-78) Lab results reviewed: Yes Imaging Imaging results reviewed: Yes Assessment & Plan Medical Decision Making MDM PANCREATITIS GASTRITIS Reassessment Reassessment BETTER Assessment & Plan Final Impression: (1) Acute pancreatitis Depart Disposition: ADMITTED Last Vital Signs Date Time Temp Pulse Resp B/P (MAP) Pulse Ox O2 Delivery O2 Flow Rate FiO2 09/10/19 15:40 103 22 122/96 98 Room Air 09/10/19 14:03 98.5 Home Meds Active Scripts Glipizide (GLIPIZIDE) 5 Mg Tablet, 5 MG PO BID, #60 TAB Prov:ENOC MUÑIZ RN LIAISON 07/26/19 Acetaminophen/Codeine* (TYLENOL # 3*) 1 Ea Tab, 1 EA PO Q6H PRN for MODERATE PAIN (4-6), #10 TAB Prov:ENOC MUÑIZ RN LIAISON 07/26/19 Gemfibrozil (GEMFIBROZIL) 600 Mg Tablet, 600 MG PO BIDAC for 60 Days Prov:ENOC MUÑIZ RN LIAISON 07/26/19 Amlodipine Besylate (NORVASC) 5 Mg Tab, 5 MG PO DAILY for 30 Days, TAB Prov:ENOC MUÑIZ RN LIAISON 07/26/19 Medications in the ED Ketorolac Tromethamine 15 mg ONCE STAT IV Last administered on 09/10/19at 14:5 5; Admin Dose 15 MG; Start 09/10/19 at 14:11; Stop 09/10/19 at 14:36; Status DC Sodium Chloride 1,000 ml @ 0 mls/hr Q0M STAT IV ; Start 09/10/19 at 15:59; Stop 09/10/19 at 16:01; Status DC Pantoprazole Sodium 40 mg NOW STAT IV ; Start 09/10/19 at 15:59; Stop 09/10/19 at 16:00; Status UNV Pantoprazole Sodium 40 mg DAILY IV ; Start 09/11/19 at 09:00; Stop 10/11/19 at 08:59; Status UNV JEFERSON KELLOGG MD Sep 10, 2019 16:15
[2019-09-10] MEDS ORDERED: MORPHINE SULFATE 2 MG/ML SYR 1ML IV STA (16:16)
[2019-09-10] MEDS ORDERED: ONDANSETRON HCL INJ 2MG/ML 2ML 2 MG/ML VIAL IV PRN (16:30)
[2019-09-10] MEDS ORDERED: MORPHINE SULFATE 2 MG/ML SYR 1ML IV PRN (16:30)
--- NOTE | 2019-09-10 18:00 | NUR ---
Received patient from ER via wheelchair. AAOx4 to time, person, place, situation. Respirations even and unlabored. Oriented patient to room. Instructed to use call light for assistance. Voiced understanding. Side rails upx2, call light within reach.
--- NOTE | 2019-09-10 19:20 | NUR ---
Report given to oncoming nurse of patient's status. Resting in bed. No s/s of acute distress noted. Side rails upx2, call light within reach.
[2019-09-10] MEDS: SODIUM CHLORIDE 0.9% 1000ML 1,000 ML IV SCH (19:30)
[2019-09-10] MEDS ORDERED: GEMFIBROZIL600 MG PO (19:51)
[2019-09-10 20:19] VITALS: BP 155/113
[2019-09-10 20:30] VITALS: BP_SYST 136; BP_SYST 155; BP_DIAS 113; BP_DIAS 88
[2019-09-10] MEDS: AMLODIPINE BESYLATE 5 MG TAB PO SCH (21:10)
[2019-09-10] MEDS: MORPHINE SULFATE INJ 4 MG/ML INJ 1ML IV PRN (23:40)
[2019-09-10] MEDS: ONDANSETRON HCL INJ 2MG/ML 2ML 2 MG/ML VIAL IV PRN (23:40)
[2019-09-11] MEDS ORDERED: DOCUSATE SODIUM 100 MG CAP PO PRN
[2019-09-11] MEDS: SODIUM CHLORIDE 0.9% 1000ML 1,000 ML IV SCH ×4 (00:10→23:05)
[2019-09-11 00:44] VITALS: BP 136/88
[2019-09-11] MEDS: MORPHINE SULFATE INJ 4 MG/ML INJ 1ML IV PRN ×5 (03:40→20:15)
[2019-09-11 04:49] VITALS: BP 134/83
[2019-09-11 06:13] LABS: BASOPHILS % 0.5 % (0.0-1.0); EOSINOPHILS # (AUTO) 0.2 (0.0-0.4); HEMATOCRIT 34.8 % (38.2-49.6); HEMOGLOBIN 12.7 g/dL (14.0-18.0); LYMPHOCYTES # (AUTO) 1.6 (1.0-3.2); LYMPHOCYTES % 20.4 % (18.0-39.1); MEAN CORPUSCULAR HEMOGLOBIN 31.9 pg (28-32); MEAN CORPUSCULAR HGB CONC 36.5 g/dL (31-35); MEAN CORPUSCULAR VOLUME 87.4 fL (81-99); MONOCYTES # (AUTO) 0.6 (0.2-0.8); MONOCYTES % 7.7 % (4.4-11.3); NEUTROPHILS # (AUTO) 5.3 (2.1-6.9); NEUTROPHILS % 69.1 % (38.7-80.0); PLATELET COUNT 164 x10e3/uL (140-360); RED BLOOD COUNT 3.98 x10e6/uL (4.3-5.7); RED CELL DISTRIBUTION WIDTH 15.3 % (11.7-14.4)
[2019-09-11 06:36] LABS: ANION GAP 24.7 mmol/L (8-16); BLOOD UREA NITROGEN 11 mg/dL (7-26); BUN/CREATININE RATIO 15 (6-25); CALCIUM 8.5 mg/dL (8.4-10.2); CARBON DIOXIDE 13 mmol/L (22-29); CHLORIDE 101 mmol/L (98-107); CREATININE, SERUM 0.72 mg/dL (0.72-1.25); EST GLOMERULAR FILTRATION RATE > 60 ML/MIN (60-); GLUCOSE 183 mg/dL (74-118); POTASSIUM 3.7 mmol/L (3.5-5.1); SODIUM 135 mmol/L (136-145)
[2019-09-11 07:45] VITALS: BP 153/87
[2019-09-11 08:22] VITALS: BP 153/87
[2019-09-11] MEDS ORDERED: PANTOPRAZOLE 40 MG 10ML VIAL IV SCH (09:00)
[2019-09-11] MEDS: AMLODIPINE BESYLATE 5 MG TAB PO SCH (09:37)
[2019-09-11] MEDS: PANTOPRAZOLE 40 MG 10ML VIAL IV SCH (09:37)
[2019-09-11 13:28] VITALS: BP 142/97
[2019-09-11 15:50] VITALS: BP 156/89
[2019-09-11] MEDS: GEMFIBROZIL 600 MG TAB PO SCH (20:46)
[2019-09-11] MEDS ORDERED: DEXTROSE 50% SYRINGE 50 ML IV PRN ×2 (23:30)
[2019-09-12] VITALS (9 sets, daily range): BP systolic 118–129; BP diastolic 74–89
--- NOTE | 2019-09-12 00:06 | History and Physical ---
The patient was seen and evaluated at approximately 10:10 this morning. CHIEF COMPLAINT: Abdominal pain. HISTORY OF PRESENT ILLNESS: This is a 34-year-old male, very noncompliant with his medical care, has a history of chronic alcohol abuse with acute pancreatitis secondary to alcohol abuse, uncontrolled type 2 diabetes, hyperlipidemia, continues to drink, comes in with acute onset of abdominal pain, found to have acute pancreatitis. The patient has underlying chronic pancreatitis. I spoke with the patient at bedside. He reports to me that he drink some alcohol this weekend, likely leading to his abdominal pain. The patient was known to my service in the past. He is very noncompliant with medications as well as with alcohol usage. The patient refuses to follow up with any physician. Does not follow up with a GI specialist nor does he follow up with a PCP. The patient was seen and evaluated at bedside. He is currently doing well with no other issues. He is still n.p.o., IV fluids, and pain control. REVIEW OF SYSTEMS: Abdominal pain, decreased oral intake, nausea. The rest of the 14-point review of systems are reviewed with the patient and are negative. ALLERGIES: NO KNOWN DRUG ALLERGIES. HOME MEDICATIONS: 1. Tylenol No. 3. 2. Glipizide. 3. Amlodipine. 4. Gemfibrozil. PAST MEDICAL HISTORY: Hyperlipidemia, type 2 diabetes, hypertension, acute pancreatitis, chronic pancreatitis. PAST SURGICAL HISTORY: Reports none. FAMILY HISTORY: Hypertension and diabetes. SOCIAL HISTORY: He is still a smoker. He is still drinking alcohol. He reports no drugs. Unsure if he is working. PHYSICAL EXAMINATION: VITAL SIGNS: Temperature is 98.2, pulse 107, respiratory rate is 18, blood pressure is 156/89, pulse ox 98% on room air. GENERAL: Not in acute distress. Alert and oriented x3. He is cooperative on examination. HEENT: Head; normocephalic, atraumatic. Eyes; pupils are equal, round, and reactive to light bilaterally. Extraocular movements intact bilaterally. Throat; no evidence of erythema or exudates in the posterior pharynx. Has poor dentition. NECK: Supple. Good range of motion. PULMONARY: Clear to auscultation bilaterally. No wheezing, no rales, no rhonchi, no crackles appreciated. CARDIOVASCULAR: Positive S1 and S2. No murmurs, rubs, or gallops appreciated. ABDOMEN: He is tender to palpation in the epigastric region. No rebound. No guarding. MUSCULOSKELETAL: Strength is 5/5 throughout. No evidence of any muscle deficits on examination. No weakness appreciated. NEUROLOGIC: Cranial nerve II through XII grossly intact. No evidence of any neurological deficits on exam. SKIN: Intact. Warm to touch. Good cap refill. PSYCHIATRIC: Normal affect and mood. EXTREMITIES: No edema. Good range of motion throughout. LABORATORY FINDINGS: Show white count 7.6, hemoglobin 12.7, hematocrit is 34.8, platelets of 164. Chemistry; sodium 135, potassium 3.7 chloride 101, bicarb is 13, anion gap was found to be 14, BUN 11, creatinine is 0.72, glucose was 210, calcium is 8.5. LFTs within normal range. Lipase was 178. Urinalysis was negative. Coronavirus is pending. MICROBIOLOGY: None. IMAGING STUDIES: CT abdomen and pelvis shows mild peripancreatic fat stranding, slightly more prominent compared to 07/22/2019. Diffuse hepatic steatosis. IMPRESSION: 1. [id number]-nx-[id number] pancreatitis secondary to alcohol abuse. 2. Uncontrolled type 2 diabetes. 3. Hypertension. 4. Chronic alcohol abuse. 5. Medical noncompliance. PLAN: At this time, we will keep the patient with IV fluids, n.p.o. and pain control. We are going to resume same home medications. We are going to monitor his glucoses very closely. He is still on normal saline at 150 mL/h and he is not hypoglycemic. At this time, we are going to resume same home medications. Monitor very closely. He will be on Lovenox for DVT prophylaxis. If the patient's pain is much improved, we will put him on a liquid diet and advanced it slowly as tolerated. Otherwise, we will continue same plan of care and monitor closely. MD WILLIAM Resendiz/EMILY /[id number]
[2019-09-12] MEDS: MORPHINE SULFATE INJ 4 MG/ML INJ 1ML IV PRN ×6 (00:20→22:40)
[2019-09-12] MEDS: SODIUM CHLORIDE 0.9% 1000ML 1,000 ML IV SCH ×4 (05:30→21:09)
[2019-09-12 05:44] LABS: BASOPHILS # (AUTO) 0.1 (0.0-0.1); BASOPHILS % 0.7 % (0.0-1.0); EOSINOPHILS # (AUTO) 0.3 (0.0-0.4); HEMATOCRIT 41.6 % (38.2-49.6); HEMOGLOBIN 13.8 g/dL (14.0-18.0); LYMPHOCYTES # (AUTO) 1.7 (1.0-3.2); LYMPHOCYTES % 19.6 % (18.0-39.1); MEAN CORPUSCULAR HGB CONC 33.2 g/dL (31-35); MEAN CORPUSCULAR VOLUME 84.6 fL (81-99); MONOCYTES # (AUTO) 0.8 (0.2-0.8); MONOCYTES % 9.3 % (4.4-11.3); NEUTROPHILS # (AUTO) 5.7 (2.1-6.9); PLATELET COUNT 252 x10e3/uL (140-360); RED BLOOD COUNT 4.92 x10e6/uL (4.3-5.7); RED CELL DISTRIBUTION WIDTH 13.1 % (11.7-14.4)
[2019-09-12 06:35] LABS: ALANINE AMINOTRANSFERASE 34 IU/L (0-55); ALBUMIN 3.6 g/dL (3.5-5.0); ALBUMIN/GLOBULIN RATIO 0.9 (0.8-2.0); ALKALINE PHOSPHATASE 84 IU/L (40-150); ANION GAP 16.8 mmol/L (8-16); BLOOD UREA NITROGEN 5 mg/dL (7-26); BUN/CREATININE RATIO 6 (6-25); CALCIUM 9.6 mg/dL (8.4-10.2); CARBON DIOXIDE 23 mmol/L (22-29); CHLORIDE 100 mmol/L (98-107); CREATININE, SERUM 0.78 mg/dL (0.72-1.25); EST GLOMERULAR FILTRATION RATE > 60 ML/MIN (60-); GLUCOSE 155 mg/dL (74-118); LIPASE 60 U/L (8-78); POTASSIUM 3.8 mmol/L (3.5-5.1); SODIUM 136 mmol/L (136-145)
--- NOTE | 2019-09-12 06:48 | NUR ---
PT LYING RIGHT SIDE IN BED. NO ACUTE DISTRESS NOTED. RR 18, EVEN AND UNLABORED. CALL LIGHT WITHIN REACH.
--- NOTE | 2019-09-12 07:15 | NUR ---
The pt. reports pain at a level of 7 during rounds and is not due for med until 819.
[2019-09-12] MEDS: SODIUM BICARBONATE 650 MG TAB PO SCH ×2 (08:39→17:46)
[2019-09-12] MEDS: PANTOPRAZOLE 40 MG 10ML VIAL IV SCH (08:39)
[2019-09-12] MEDS: AMLODIPINE BESYLATE 5 MG TAB PO SCH (08:39)
[2019-09-12] MEDS: ENOXAPARIN SOD INJ 40 MG/0.4 ML SYR SC SCH (17:46)
[2019-09-12] MEDS: GEMFIBROZIL 600 MG TAB PO SCH (21:09)
[2019-09-12] MEDS: ONDANSETRON HCL INJ 2MG/ML 2ML 2 MG/ML VIAL IV PRN (22:40)
[2019-09-13] VITALS (8 sets, daily range): BP systolic 117–135; BP diastolic 81–94
--- NOTE | 2019-09-13 00:32 | Progress Note ---
DATE: 09/12/2019 Medicine Progress Note SUBJECTIVE: The patient was seen and evaluated at approximately 12:45 p.m. The patient's pain is improving. We advanced him to clear liquid diet. PHYSICAL EXAMINATION: VITAL SIGNS: Temperature was 99.3, pulse 104, respiratory rate 20, blood pressure 118/80, pulse ox 97% on room air. GENERAL: Not in acute distress. Alert and oriented x3. Cooperative on examination. HEENT: Head is normocephalic and atraumatic. Eyes; pupils are equal, round, and reactive to light bilaterally. Extraocular movements are intact bilaterally. Throat; no evidence of erythema or exudates in the posterior pharynx. Has poor dentition. NECK: Supple. Good range of motion. PULMONARY: Clear to auscultation bilaterally. No wheezing, no rales, no rhonchi, no crackles appreciated. CARDIOVASCULAR: Positive S1 and S2. No murmurs, rubs, or gallops appreciated. ABDOMEN: Soft, nondistended, and nontender to palpation. Bowel sounds present. MUSCULOSKELETAL: Strength is 5/5 throughout. No evidence of any muscle deficits on examination. SKIN: Intact. Warm to touch. Good cap refill. LABORATORY DATA: Labs show white count 8.2, hemoglobin 13.8, hematocrit is 42, platelets of 252. Chemistry sodium 136, potassium 3.8, chloride 100, bicarb 23, anion gap of 16, BUN is 5, creatinine 0.78 point of care glucose 164. His lipase is 60. Coronavirus not detected. Microbiology, none. IMAGING STUDIES: None. IMPRESSION: 1. Acute on chronic pancreatitis secondary to alcohol abuse and uncontrolled type 2 diabetes. 2. Uncontrolled type 2 diabetes. 3. Hypertension. 4. Chronic alcohol abuse. 5. Medical noncompliance. PLAN: At this time, continue with IV fluids, pain control. Started on clear liquid diet. We are going to advance as tolerated as much as he can tolerate. But we are going to go very slowly and we will advance the diet tomorrow. Continue with same home medications. Lovenox for DVT prophylaxis. Otherwise, we will monitor him very closely. Continue with telemetry. Katya Reed MD JSD/MODL /[id number]
[2019-09-13] MEDS: MORPHINE SULFATE INJ 4 MG/ML INJ 1ML IV PRN ×3 (02:58→23:20)
[2019-09-13] MEDS: SODIUM CHLORIDE 0.9% 1000ML 1,000 ML IV SCH ×3 (04:48→17:50)
[2019-09-13 05:22] LABS: BASOPHILS # (AUTO) 0.1 (0.0-0.1); EOSINOPHILS # (AUTO) 0.2 (0.0-0.4); EOSINOPHILS % 3.4 % (0.0-6.0); HEMATOCRIT 36.2 % (38.2-49.6); HEMOGLOBIN 12.5 g/dL (14.0-18.0); LYMPHOCYTES # (AUTO) 1.4 (1.0-3.2); LYMPHOCYTES % 28.2 % (18.0-39.1); MEAN CORPUSCULAR HEMOGLOBIN 29.9 pg (28-32); MEAN CORPUSCULAR HGB CONC 34.5 g/dL (31-35); MEAN CORPUSCULAR VOLUME 86.6 fL (81-99); MONOCYTES # (AUTO) 0.5 (0.2-0.8); MONOCYTES % 9.9 % (4.4-11.3); NEUTROPHILS # (AUTO) 2.9 (2.1-6.9); NEUTROPHILS % 57.1 % (38.7-80.0); PLATELET COUNT 181 x10e3/uL (140-360); RED BLOOD COUNT 4.18 x10e6/uL (4.3-5.7); RED CELL DISTRIBUTION WIDTH 13.2 % (11.7-14.4)
[2019-09-13 05:41] LABS: ANION GAP 14.4 mmol/L (8-16); BLOOD UREA NITROGEN 5 mg/dL (7-26); BUN/CREATININE RATIO 7 (6-25); CALCIUM 9.1 mg/dL (8.4-10.2); CARBON DIOXIDE 24 mmol/L (22-29); CHLORIDE 102 mmol/L (98-107); CREATININE, SERUM 0.67 mg/dL (0.72-1.25); EST GLOMERULAR FILTRATION RATE > 60 ML/MIN (60-); GLUCOSE 123 mg/dL (74-118); POTASSIUM 3.4 mmol/L (3.5-5.1); SODIUM 137 mmol/L (136-145)
--- NOTE | 2019-09-13 07:00 | NUR ---
Patient resting comfortably. No acute distress noted. Walking rounds done. Shift report given to oncoming nurse regarding patient's status.
[2019-09-13] MEDS: AMLODIPINE BESYLATE 5 MG TAB PO SCH (08:28)
[2019-09-13] MEDS: PANTOPRAZOLE 40 MG 10ML VIAL IV SCH (08:28)
[2019-09-13] MEDS: SODIUM BICARBONATE 650 MG TAB PO SCH ×2 (08:28→16:40)
[2019-09-13] MEDS: ENOXAPARIN SOD INJ 40 MG/0.4 ML SYR SC SCH (16:40)
[2019-09-13] MEDS: GEMFIBROZIL 600 MG TAB PO SCH (22:08)
[2019-09-13] MEDS ORDERED: POTASSIUM CHLORIDE 20 MEQ TAB CR PO STA (22:22)
[2019-09-13] MEDS: ONDANSETRON HCL INJ 2MG/ML 2ML 2 MG/ML VIAL IV PRN (23:21)
--- NOTE | 2019-09-13 23:33 | Progress Note ---
DATE: 09/13/2019 Medicine Progress Note SUBJECTIVE: The patient was seen and evaluated at approximately 1:40 this afternoon. He reports some minor pain. He is tolerating clear liquid diet, which we will go ahead and advance to full liquid. PHYSICAL EXAMINATION: VITAL SIGNS: He is afebrile, normotensive. Respiratory rate is good. GENERAL: Not in acute distress. Alert and oriented x3. He is cooperative on examination. HEENT: Head; normocephalic, atraumatic. Eyes; pupils are equal, round, and reactive to light bilaterally. Extraocular movements intact bilaterally. Throat; no evidence of erythema or exudates in the posterior pharynx. Has poor dentition. NECK: Supple. Good range of motion. PULMONARY: Clear to auscultation bilaterally. No wheezing, no rales, no rhonchi, no crackles appreciated. CARDIOVASCULAR: Positive S1 and S2. No murmurs, rubs, or gallops appreciated. ABDOMEN: Soft, nondistended, and nontender to palpation. Bowel sounds present. MUSCULOSKELETAL: Strength is 5/5 throughout. No evidence of any muscle deficits on examination. No weakness appreciated. NEUROLOGIC: Cranial nerves 2 through 12 grossly intact. No evidence of any neurological deficits on exam. SKIN: Intact. Warm to touch. Good cap refill. PSYCHIATRIC: Normal affect and mood. EXTREMITIES: No edema. Good range of motion throughout. LABORATORY FINDINGS: Show white count was 5, hemoglobin 12.5, hematocrit is 36, and platelets of 181. Chemistry; sodium 137, potassium 3.4, chloride 102, bicarb 24, anion gap of 14, BUN is 5, creatinine is 0.67, glucose 126, and calcium is 9.1. MICROBIOLOGY: None. IMAGING STUDIES: None. IMPRESSION: 1. Khyhc-ie-dkcacve pancreatitis secondary to alcohol abuse and uncontrolled type 2 diabetes. 2. Uncontrolled type 2 diabetes. 3. Hypertension. 4. Chronic alcohol abuse. 5. Medical noncompliance. PLAN: At this time, continue with IV fluids, pain control. Advance clear liquid to full liquid diet. He reports feeling much better now. We are going to advance tomorrow the diet if he is doing better. Lovenox for DVT prophylaxis. Katya Reed MD JSKomal/MODL /[id number]
[2019-09-14] VITALS (9 sets, daily range): BP systolic 108–130; BP diastolic 68–94
[2019-09-14] MEDS: SODIUM CHLORIDE 0.9% 1000ML 1,000 ML IV SCH ×3 (02:00→12:51)
[2019-09-14] MEDS: MORPHINE SULFATE INJ 4 MG/ML INJ 1ML IV PRN ×4 (06:27→21:00)
--- NOTE | 2019-09-14 06:40 | NUR ---
Patient endorsed to next shift for continuity of care.
[2019-09-14] MEDS: AMLODIPINE BESYLATE 5 MG TAB PO SCH (09:23)
[2019-09-14] MEDS: PANTOPRAZOLE 40 MG 10ML VIAL IV SCH (09:23)
[2019-09-14] MEDS: ONDANSETRON HCL INJ 2MG/ML 2ML 2 MG/ML VIAL IV PRN (12:33)
[2019-09-14] MEDS: ENOXAPARIN SOD INJ 40 MG/0.4 ML SYR SC SCH (18:09)
--- OUTSIDE RECORDS SUMMARY | 2019-09-14 18:52 | XMS REPORT | Clinical Summary ---
Author Author [facility] ict Organization [facility] ict Address Unknown Phone Unavailable Care Team Providers Care Grade Recorder Name Role Phone Trung Bradshaw MD PCP [...] Care Team Description Date Type Specialty Doctor, [facility] 07/16/2019 E-Visit Trung Bradshaw MD Rash [...] hypertension; Hypertriglyceridemia 09/13/2018 Office Visit Family Practice after 09/09/2018 Immunizations Name Administration Dates Next Due Influenza, [...] 18 09/13/2018 10:44 AM CDT Respiratory Rate - - Oxygen Saturation - - Inhaled Oxygen Concentration 109.7 kg (241 lb 12.8 oz) 09/13/2018 10:44 AM CDT Weight 162.6 cm (5' 4") 09/13/2018 10:44 AM CDT Height 41.5 09/13/2018 10:44 AM CDT Body Mass Index Plan of Treatment Care Team Description Date Type Specialty 10/15/2019 Office Visit Dermatology Health Maintenance Due Date Last Done Comments DM Microalbumin Urine 11/10/2018 11/10/2017 Scrn (Yearly) DM Foot Exam (Yearly) 12/19/2018 12/19/2017, 11/10/2017, 09/23/2017 DM HGBA1C (Yearly) 09/14/2019 09/13/2018, 02/09/2018, 11/10/2017 DM Retinal Exam (Yearly) 09/14/2019 09/13/2018, 11/10/2017 IMM Influenza Seasonal 11/15/2019 12/19/2017 Oct [...] n, with long-term current use of insulin after 09/09/2018 Results * XRAY ELBOW 3 VIEWS MIN [...] MD, 09/13/2018 1:59 PM Performing Organization Address [facility] one Number [facility] * Hemoglobin A1C (09/13/2018 11:59 AM CDT) Hemoglobin A1c 7.6 (H) 4.3 - 6.1 % [facility] Estimated 171 (H) 70 - 110 mg/dL [facility] Average Glucose LABORATORY Specimen Blood Performing Organization Address [facility] Ph one Number [facility] [address] [place] [address] * Comprehensive Metabolic Panel (09/13/2018 11:59 AM CDT) Sodium 138 136 - 145 mmol/L [facility] Potassium 4.8 3.5 - 5.1 mmol/L [facility] Chloride 103 98 - 107 mmol/L [...] [facility] Specimen Blood Performing Organization Address [facility] one Number [facility] [address] [place], [place] [id number] [phone] * Lipid Profile (09/13/2018 11:59 AM CDT) Pathologist [facility] [place] Cholesterol 244.0 (H) <=200.0 mg/dL [facility] Comment: LABORATORY Desirable: < 200.0 mg/dL Borderline: 200 - 240 mg/dL High Risk: > 240 mg/dL Triglyceride 990 (H) <150 mg/dL [facility] Comment: LABORATORY Normal: < 150.0 mg/dL Borderline: 150-199 mg/dL High: 200-499 mg/dL Very High: >= 500 mg/dL HDL 31.0 See Reference Range [facility] Comment: Narrative. mg/dL LABORATORY Increased CHD Risk: < 40.0 mg/dL Decreased CHD Risk: > 60 mg/dL LDL Comment: Triglyceride value is <100 mg/dL [facility] > 400 mg/dl. Unable to LABORATORY calculate LDL value due to high triglyceride. Specimen Blood Performing Organization Address [facility] one Number [facility] [address] [place], [place] [id number] [phone] * OPHTHALMOLOGY RETINAL SCAN (09/13/2018 11:54 AM CDT) Pathologist [facility] [place] RETINAL NORMAL IRIS SCAN-FINAL RESULT Right Diabetic None IRIS Retinopathy Right Macular None IRIS Edema Right Other None IRIS Suspected Conditions Right Image Gradeable Image IRIS Quality Left Diabetic None [facility]IS Retinopathy Left Macular None IRIS Edema Left Other None IRIS Suspected Conditions Left Image Gradeable Image IRIS Quality Specimen Narrative Performed At Retinal Study Result for DEANDRE PHILIP JOEL, a 33 y/o, M (: 1985, ) presented to [facility] on 09-13-2018 for a retinal imaging study of the left and r ight eyes. Based on the findings of the study, the following is recommended for DEANDRE PHILIP Normal Scan: Please advise the patient to return for another scan in 1 year. Interpreting Provider's Comments: No comments provided Right Eye Findings: Normal Result. Negative for Diabetic Retinopathy. Left Eye Findings: Normal Result. Negative for Diabetic Retinopathy. This result was electronically signed Trev Golden MD, , Taxonomy: [id number] on 09-13-2018 05:0 4:34 [facility] time. NOTE: Any pathology noted on this jerzy betic retinal evaluation should be confirmed by an appropriate ophthalmic examination. Performing Organization Address City/State[facility] one Number IRIS after 09/09/2018 Insurance Type Payer Benefit Subscriber ID Effective Phone Address Plan / Dates Group [facility] xxxxxxx 2019- [address] INDIGENT FAMILY [address] [facility] PLANNING [place], [place] [address] [facility] PLAN FINANCIAL xxxxxxx 2019- [phone] [address] [place] [address] [facility] PLAN FINANCIAL xxxxxxxx 2019- [phone] [address] [place] [address]
--- OUTSIDE RECORDS SUMMARY | 2019-09-14 18:53 | XMS REPORT | Continuity of Care Document ---
Author Author [facility] t Organization [facility] Address 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 PLANFINANCIAL ASSISTANCE PROGRAMxxx [id number] [place] [address] xxxxxxx 2019 00:00:00 03-12 23:59:59 [facility] Problems Condition Name Condition Details Condition Category Status Onset Date Resolution Date Last Treatment Date Treating Clinician Comments Source Essential hypertension Essential hypertension Disease Active 2017-11-10 00:00:00 [facility] Alcohol-induced acute pancreatitis Problem Active [facility] Pancreatitis Problem Active [facility] High anion gap metabolic acidosis Problem Active [facility] Hypertriglyceridemia Problem Active [facility] Allergies, Adverse Reactions, Alerts Allergy Name Allergy Type Status Severity Reaction(s) Onset Date Inacti ve Date Treating Clinician Comments Source No Known Allergies DA Active U 2019-04-11 00:00:00 [facility] No Known Allergies DA Active U 2019-03-01 00:00:00 [facility] No Known Allergies DA Active U 2016-03-13 00:00:00 [facility] Social History Social Habit Start Date Stop Date Quantity Comments Source Sex Assigned At [facility] Alcohol intake 2018-07-26 00:00:00 2018-07-26 00:00:00 Current drinker of alcohol (finding) [facility] SDOH Food Worry 2017-11-10 00:00:00 2017-11-10 00:00:00 1 [facility] SDOH Food Scarcity 2017-11-10 00:00:00 2017-11-10 00:00:00 1 [facility] Alcohol Comment 2017-11-10 00:00:00 2017-11-10 00:00:00 vodka [facility] Smoking Status Start Date Stop Date Source Current every day smoker 2018-07-26 00:00:00 [facility] Medications Ordered Medication Name Filled Medication Name Start Date Stop Da te Current Medication? Ordering Clinician Indication Dosage Frequency Signature (SIG) Comments Components Source Acetaminophen/Codeine Phosphate (Tylenol # 3*) 1 Ea TA B Acetaminophen/Codeine Phosphate (Tylenol # 3*) 1 Ea TAB 2019-07-26 15:25:00 Yes 1 Every 6 Hours as needed for Moderate Pain (4-6) [facility] Amlodipine Besylate (Norvasc) 5 Mg TAB Amlodipine Besylate ( Norvasc) 5 Mg TAB 2019-07-26 15:25:00 Yes 5 Daily [facility] Gemfibrozil Gemfibrozil 2019-07-26 15:25:00 Yes 6 00 Twice Daily Before Meals [facility] Glipizide Glipizide 2019-07-26 15:25:00 Yes 5 Twice A Day [facility] atorvastatin (LIPITOR) 20 mg tablet 2018-09-13 00:00:0 0 2019-06-14 00:00:00 No Hyperlipidemia, unspecified hyperlipidemia type 20mg Take 1 tablet by mouth at bedtime nightly. [facility] fenofibrate nanocrystallized (TRICOR) 145 mg tablet 2018-09-13 00:00:00 2019-06-14 00:00:00 No Hypertriglyceridemia 145mg QD Take 1 tablet by mouth daily. [facility] lisinopril (PRINIVIL) 5 mg tablet 2018-09-13 00:00:00 2019 00:00:00 No Essential hypertension 5mg QD Take 1 tablet by mouth park giang [facility] metFORMIN (GLUCOPHAGE) 500 mg tablet 2018-09-13 00:00: 00 2019-06-14 00:00:00 No Type 2 diabetes mellitus wit hout complication, with long-term current use of insulin 500mg Take 1 tablet by vandana th 2 times daily (with meals) For diabetes. [facility] ibuprofen (MOTRIN) 400 mg tablet 2018-09-13 00:00:00 2019-05 00:00:00 No Elbow pain, chronic, left 400mg Take 1 tablet by mouth every 12 hours as needed for Pain (take with food). [facility] tropicamide (MYDRIACYL) 0.5 % ophthalmic solution 2018-09-13 00:00:00 2018-09-13 23:59:00 No Type 2 diabetes ana itus without complication, with long-term current use of insulin 1[drp] Instill 1 Drop in each eye once as needed for up to 1 dose (for poor retina scan image). [facility] metFORMIN (GLUCOPHAGE) 500 mg tablet 2018-09-13 00:00: 00 2018-09-13 00:00:00 No Type 2 diabetes mellitus wit hout complication, with long-term current use of insulin 500mg Take 1 tablet by vandana th 2 times daily (with meals) For diabetes. [facility] atorvastatin (LIPITOR) 20 mg tablet 2018-09-13 00:00:0 0 2018-09-13 00:00:00 No Hyperlipidemia, unspecified hyperlipidemia type 20mg Take 1 tablet by mouth at bedtime nightly. [facility] lisinopril (PRINIVIL) 5 mg tablet 2018-09-13 00:00:00 2018 00:00:00 No Essential hypertension 5mg QD Take 1 tablet by mouth park giang [facility] fenofibrate nanocrystallized (TRICOR) 145 mg tablet 2018-09-13 00:00:00 2018-09-13 00:00:00 No Hypertriglyceridemia 145mg QD Take 1 tablet by mouth daily. [facility] ibuprofen (MOTRIN) 800 mg tablet 2018-07-26 00:00:00 2018-08 00:00:00 No Lateral epicondylitis of left elbow 800mg Take 1 tablet by mouth every 8 hours as needed for Pain. [facility] metFORMIN (GLUCOPHAGE) 500 mg tablet 2017-12-19 00:00: 00 2018-09-13 00:00:00 No Type 2 diabetes mellitus wit hout complication, with long-term current use of insulin 500mg Take 1 tablet by vandana th 2 times daily (with meals) For diabetes. [facility] atorvastatin (LIPITOR) 20 mg tablet 2017-12-19 00:00:0 0 2018-09-13 00:00:00 No Hyperlipidemia, unspecified hyperlipidemia type 20mg Take 1 tablet by mouth at bedtime nightly. [facility] lancets 28 gauge 2017-11-10 00:00:00 Yes Type 2 diabetes mellitus without complication, with long-term current use of insulin 100{each} Use 2 times daily as needed [facility] blood glucose (PRECISION XTRA TEST STRIPS) test strips 2017-11-10 00:00:00 Yes Type 2 diabetes mellitus wit hout complication, with long-term current use of insulin 1{each} Q.5D Check blood glucose 2 times daily [facility] lisinopril (PRINIVIL) 5 mg tablet 2017-11-10 00:00:00 2018 00:00:00 No Essential hypertension 5mg QD Take 1 tablet by mouth park giang [facility] INSULIN SYRINGE 0.5mL 30GX5/16" (MONOJEC T ULTRACOMFORT INSULIN SYR 0.5ML 30GX5/16") syringe-needle 2017-11-10 00:00:00 2018-09-13 00:00:00 No Type 2 diabetes mellitus without complication, with long-term current use of insulin Use to inject medication 5 times daily. Use a new syringe each t marshal. [facility] blood glucose meter 2017-09-23 00:00:00 Yes Newly diagnosed diabetes Use as directed.. [facility] Metformin Hcl Metformin Hcl 2019-07-26 00:00:00 No 500 Twice A Day [facility] Acetaminophen With Codeine (Tylenol With Codeine #3 Ta blet) 1 Each TABLET Acetaminophen With Codeine (Tylenol With Codeine #3 Tablet) 1 Each TABLET 2019-07-22 00:00:00 No 300 Every 6 Hours as needed for Moderate Pain (4-6) [facility] Immunizations Ordered Immunization Name Filled Immunization Name Date Status Comments Source Influenza, Vaccine<FLUCELVAX>(Multi-Dose) 2017-12-19 00:00 :00 Completed [facility] Tdap (Tetanus Toxoid, Reduced Diphtheria Toxoid And Acellular Pertussis, Absorbed) 2017-11-10 00:00:00 Completed [facility] ealt PPV 23 (Pneumococcal Polysaccharide 23 Valent) 2017-10 00:00:00 Completed [facility] Vital Signs Vital Name Observation Time Observation Value Comments Source Body Temperature 2019-07-26 15:46:00 97.8 [degF] [facility] BMI (Body Mass Index) 2019-07-24 09:26:00 37.9 kg/m2 [facility] Weight 2019-07-22 21:26:00 221 [lb_av] [facility] Body Temperature 2019-07-08 12:20:00 97.3 [degF] [facility] BMI (Body Mass Index) 2019-07-07 01:08:00 39.5 kg/m2 [facility] Weight 2019-07-04 18:28:00 230 [lb_av] [facility] Heart rate 2018-09-13 11:36:00 98 /min manual radial pulse [facility] Systolic blood pressure 2018-09-13 10:44:00 130 mm[Hg] [facility] Diastolic blood pressure 2018-09-13 10:44:00 85 mm[Hg] [facility] Body temperature 2018-09-13 10:44:00 36.94 Lizette Rehana is [facility] Respiratory rate 2018-09-13 10:44:00 18 /min [facility] Body height 2018-09-13 10:44:00 162.6 cm Shemar dodge Body weight 2018-09-13 10:44:00 109.68 kg [facility] BMI 2018-09-13 10:44:00 41.50 kg/m2 [facility] echo Procedures Procedure Date / Time Performed Performing Clinician Liam e Computed tomography of abdomen and pelvis with contrast 00:00:00 [facility] Computed tomography of abdomen and pelvis with contrast 00:00:00 [facility] XRAY ELBOW 3 VIEWS MIN 2018-09-13 12:55:46 Trung Bradshaw [facility] LIPID PROFILE 2018-09-13 11:59:00 [facility] 2018-09-13 11:59:00 Trung Bradshaw COMPREHENSIVE METABOLIC PANEL 2018-09-13 11:59:00 Trung Bradshaw [facility] OPHTHALMOLOGY RETINAL SCAN 2018-09-13 11:54:02 Trung Bradshaw [facility] Plan of Care Planned Activity Planned Date Details Comments Source Future Scheduled Test 2019-11-15 00:00:00 IMM Influenza Seas onal Nov to April (>/= 19 yrs) [code = IMM Influenza Seasonal Nov to April (>/= 19 yrs)] [facility] Scheduled Test 2019-09-14 00:00:00 Hemoglobin A1c akash surement (procedure) [code = 66066586] [facility] Scheduled Test 2019-09-14 00:00:00 DM Retinal Exam (Y early) [code = DM Retinal Exam (Yearly)] [facility] Scheduled Test 2018-12-19 00:00:00 DM Foot Exam (Year ly) [code = DM Foot Exam (Yearly)] [facility] Scheduled Test 2018-11-10 00:00:00 Urine screening fo r protein (procedure) [code = 103359302] [facility] Instructions Alcohol Abuse [facility] Instructions Hypercholesteremia [facility] Instructions Pancreatitis [facility] Encounters Start Date/Time End Date/Time Encounter Type Admission [facility] ID Source 2019-07-22 11:05:00 2019-07-26 18:57:00 Discharged Inpatient 1 AV [facility]EC[facility] [id number] [facility] - Patients [facility] 2019-07-04 15:34:00 2019-07-08 15:41:00 Discharged Inpatient 1 AV [facility]ECK[facility] [id number] [facility] garcias - Patients [facility] 2019-02-17 04:44:00 2019-02-17 00:16:00 Inpatient [id number] 2018-11-13 00:00:00 2018-11-13 00:00:00 Outpatient [facility] [id number] [facility] 2018-09-13 12:52:54 2018-09-13 12:52:54 Outpatient [facility] [id number] [facility] 2018-09-13 11:59:42 2018-09-13 11:59:42 Outpatient [facility] [id number] [facility] 2018-09-13 11:50:56 2018-09-13 11:50:56 Outpatient [facility] [id number] [facility] 2018-09-13 10:43:26 2018-09-13 10:43:26 Outpatient [facility] [id number] [facility] 2018-09-13 00:00:00 2018-09-13 00:00:00 Outpatient [facility] [id number] [facility] 2018-07-26 15:23:18 2018-07-26 15:23:18 Outpatient [facility] [id number] [facility] 2018-02-21 00:00:00 2018-02-21 00:00:00 Outpatient [facility] [id number] [facility] 2018-02-09 08:43:51 2018-02-09 08:43:51 Outpatient [facility] [id number] [facility] 2018-01-16 00:00:00 2018-01-16 00:00:00 Outpatient [facility] [id number] [facility] 2017-12-28 00:00:00 2017-12-28 00:00:00 Outpatient [facility] [id number] [facility] 2017-12-19 15:16:04 2017-12-19 15:16:04 Outpatient [facility] [id number] [facility] 2017-12-13 00:00:00 2017-12-13 00:00:00 Outpatient [facility] [id number] [facility] 2017-12-13 00:00:00 2017-12-13 00:00:00 Outpatient [facility] [id number] [facility] 2017-12-13 00:00:00 2017-12-13 00:00:00 Outpatient [facility] [id number] [facility] 2017-11-21 00:00:00 2017-11-21 00:00:00 Outpatient [facility] [id number] [facility] 2017-11-21 00:00:00 2017-11-21 00:00:00 Outpatient [facility] [id number] [facility] 2017-11-10 15:37:03 2017-11-10 15:37:03 Outpatient [facility] [id number] [facility] 2017-11-10 15:32:56 2017-11-10 15:32:56 Outpatient [facility] [id number] [facility] 2017-11-10 13:32:59 2017-11-10 13:32:59 Outpatient [facility] [id number] [facility] 2017-09-23 14:38:25 2017-09-23 14:38:25 Outpatient [facility] [id number] [facility] Results Test Description Test Time Test Comments Results Result Comments Source CT ABDOMEN/PELVIS WO 2019-09-10 15:16:00 [place] [address] Patient Name: DEANDRE PHILIP MR #: [id number] : 1985 Age/Sex: 34/M Req #: [id number] Adm Physician: Ordered by: JEFERSON KELLOGG MD Report #: [id number] Location: ER Room/Bed: Procedure: [id number] CT/CT ABDOMEN/PELVIS WO Exam Date: 09/10/19 Exam Time: 1513 REPORT STATUS: Signed EXAM: CT Abdomen and Pelvis WITHOUT intravenous contrast INDICATION: Flank pain COMPARISON: CT abdomen and pelvis of 07/22/2019 TECHNIQUE: Abdomen and pelvis were scanned utilizing a multidetector helical scanner from the lung base to the pubic symphysis without administration of IV contrast. Coronal and sagittal reformations were obtained. IV CONTRAST: None ORAL CONTRAST: Water COMPLICATIONS: None RADIATION DOSE: Total DLP: 736 mGy*cm Dose modulation, iterative reconstruction, and/or weight based adjustment of the mA/kV was utilized to reduce the radiation dose to as low as reasonably achievable. FINDINGS: LOWER THORAX: Normal. HEPATOBILIARY: Diffuse hepatic steatosis. No focal liver lesion. Status post cholecystectomy. SPLEEN: No splenomegaly. PANCREAS: Mild peripancreatic fat stranding, slightly more prominent compared to 07/22/2019. No focal mass or ductal dilation. ADRENALS: No adrenal nodules. KIDNEYS/URETERS: No hydronephrosis, stones, or solid mass lesions. PELVIC ORGANS/BLADDER: Unremarkable. PERITONEUM / RETROPERITONEUM: No free air or fluid. LYMPH NODES: No lymphadenopathy. VESSELS: Unremarkable. GI TRACT: No bowel wall thickening. No bowel obstruction. Normal appendix. BONES AND SOFT TISSUES: No acute osseous injury. No suspicious lytic or blastic lesions. IMPRESSION: Mild peripancreatic fat stranding, slightly more prominent compared to 07/22/2019. Findings may represent residual changes related to prior pancreatitis seen in June 2019 versus mild recurrent acute pancreatitis. Diffuse hepatic steatosis. Signed by: Britni Tinoco MD on 09/10/2019 3:24 PM Dictated By: BRITNI TINOCO MD 1524 Transcribed By: BHAKTI on 09/10/19 1524 COPY TO: JEFERSON LOPEZ MD Capillary blood glucose measurement by glucometer (mas s/volume) 2019-07-26 15:37:00 Test Item Bedside Glucose (test code = 33767-8) 133 70-120 Meter ID: [id number][facility] or plasma lipase measurement (enzymatic activity/volume)2019-07-25 05:25:00* Test Item Value Reference Range Interpretation Comments Lipase (test code = 3040-3) 63 8-78 [facility] sodium measurement (moles/volume)2019-07-24 14:58:00* Test Item Value Reference Range Interpretation Comments Sodium Level (test code = 2951-2) 137 136-145 [facility] potassium measurement (moles/volume)2019-07-24 14:58:00* Test Item Value Reference Range Interpretation Comments Potassium Level (test code = 2823-3) 3.5 3.5-5.1 [facility] chloride measurement (moles/volume)2019-07-24 14:58:00* Test Item Value Reference Range Interpretation Comments Chloride Level (test code = 2075-0) 103 98-107 [facility] plasma carbon dioxide, total measurement (moles/volume)2019-07-24 14:58:00* Test Item Value Reference Range Interpretation Comments Carbon Dioxide Level (test code = 2028-9) 21 22-29 [facility] or plasma anion had0779-77-37 14:58:00* Test Item Value Reference Range Interpretation Comments Anion Gap (test code = 94038-7) 16.5 8-16 [facility] urea nitrogen measurement (mass/volume)2019-07-24 14:58:00* Test Item Value Reference Range Interpretation Comments Blood Urea Nitrogen (test code = 3094-0) < 5 7-26 [facility] creatinine measurement (mass/volume)2019-07-24 14:58:00* Test Item Value Reference Range Interpretation Comments Creatinine (test code = 2160-0) 0.68 0.72-1.25 [facility] plasma urea nitrogen/creatinine mass [id number] 14:58:00* Test Item Value Reference Range Interpretation Comments BUN/Creatinine Ratio (test code = 3097-3) 7 6-25 [facility] glomerular filtration rate (GFR) lvduulkxozdeq5586-12-32 14:58:00* Test Item Value Reference Range Interpretation Comments Estimat Glomerular Filtration Rate (test code = 953689659) > 60 >60 Ranges were taken from the National Kidney Disease Education Program and the [facility] Foundation literature.Reference ranges:60 or greater: Ngpoqh49-38 ( for 3 consecutive months): Chronic kidney disease 15 or less: Kidney failureHCA Houston Healthcare TomballGlucose imrdhnudevv6546-74-83 14:58:00* Test Item Value Reference Range Interpretation Comments Glucose Level (test code = SGM5257) 114 74-118 [facility] plasma calcium measurement (mass/volume)2019-07-24 14:58:00* Test Item Value Reference Range Interpretation Comments Calcium Level (test code = 88226-5) 9.3 8.4-10.2 [facility] leukocytes automated count (number/volume)2019-07-23 04:35:00* Test Item Value Reference Range Interpretation Comments White Blood Count (test code = 6690-2) 6.81 4.8-10.8 [facility] erythrocytes automated count (number/volume)2019-07-23 04:35:00* Test Item Value Reference Range Interpretation Comments Red Blood Count (test code = 789-8) 4.66 4.3-5.7 [facility]ball[facility] hemoglobin measurement (moles/volume)2019-07-23 04:35:00* Test Item Value Reference Range Interpretation Comments Hemoglobin (test code = 55715-0) 13.1 14.0-18.0 [facility]ballAutomated blood hematocrit (volume fraction)2019-07-23 04:35:00* Test Item Value Reference Range Interpretation Comments Hematocrit (test code = 4544-3) 38.1 38.2-49.6 [facility]ballAutomated erythrocyte mean corpuscular vpkzzr1597-77-38 04:35:00* Test Item Value Reference Range Interpretation Comments Mean Corpuscular Volume (test code = 787-2) 81.8 81-99 [facility]ballAutomated erythrocyte mean corpuscular hemoglobin (mass per erythrocyte)2019-07-23 04:35:00* Test Item Value Reference Range Interpretation Comments Mean Corpuscular Hemoglobin (test code = 785-6) 28.1 28-32 [facility]ballAutomated erythrocyte mean corpuscular hemoglobin concentration measurement (mass/volume)2019-07-23 04:35:00* Test Item Value Reference Range Interpretation Comments Mean Corpuscular Hemoglobin Concent (test code = 786-4) 34.4 31-35 [facility] TomballRDW MlpGv-Prj8300-80-08 04:35:00* Test Item Value Reference Range Interpretation Comments Red Cell Distribution Width (test code = 76117-4) 12.8 11.7 -14.4 [facility]ballAutomated blood platelet count (count/volume)2019-07-23 04:35:00* Test Item Value Reference Range Interpretation Comments Platelet Count (test code = 777-3) 260 140-360 [facility]ballAutomated blood segmented neutrophil count as percentage of total hjmkanroxb1496-66-06 04:35:00* Test Item Value Reference Range Interpretation Comments Neutrophils (%) (Auto) (test code = 07516-2) 66.4 38.7-80.0 [facility]ballAutomated blood lymphocyte count as percentage ot total wmrixvziei8162-53-53 04:35:00* Test Item Value Reference Range Interpretation Comments Lymphocytes (%) (Auto) (test code = 736-9) 21.0 18.0-39.1 [facility]ballAutomated blood monocyte count as percentage of total gattfavvgx4922-85-11 04:35:00* Test Item Value Reference Range Interpretation Comments Monocytes (%) (Auto) (test code = 5905-5) 7.2 4.4-11.3 [facility]ballAutomated blood eosinophil count as percentage of total umgigxliqv9237-94-27 04:35:00* Test Item Value Reference Range Interpretation Comments Eosinophils (%) (Auto) (test code = 713-8) 4.4 0.0-6.0 [facility]ballAutomated blood basophil count as percentage of total urhajjmszr5893-03-10 04:35:00* Test Item Value Reference Range Interpretation Comments Basophils (%) (Auto) (test code = 706-2) 0.6 0.0-1.0 [facility] TomballFluoroscopic procedure less than one hour bexvrdet6698-86-49 04:35:00* Test Item Value Reference Range Interpretation Comments IM GRANULOCYTES % (test code = IM GRANULOCYTES %) 0.4 0.0- 1.0 [facility]ballAutomated blood neutrophil count 2019-07-23 04:35:00* Test Item Value Reference Range Interpretation Comments Neutrophils # (Auto) (test code = 751-8) 4.5 2.1-6.9 [facility]ballBlood lymphocytes count (number/volume) 2019-07-23 04:35:00* Test Item Value Reference Range Interpretation Comments Lymphocytes # (Auto) (test code = 56574-0) 1.4 1.0-3.2 [facility]ballBlood monocytes automated count (number/volume)2019-07-23 04:35:00* Test Item Value Reference Range Interpretation Comments Monocytes # (Auto) (test code = 742-7) 0.5 0.2-0.8 [facility]ballAutomated blood eosinophil count 2019-07-23 04:35:00* Test Item Value Reference Range Interpretation Comments Eosinophils # (Auto) (test code = 711-2) 0.3 0.0-0.4 [facility]ballAutomated blood basophil count (count/volume)2019-07-23 04:35:00* Test Item Value Reference Range Interpretation Comments Basophils # (Auto) (test code = 704-7) 0.0 0.0-0.1 [facility] TomballFluoroscopic procedure less than one hour jpimyhvr5187-71-37 04:35:00* Test Item Value Reference Range Interpretation Comments Absolute Immature Granulocyte (auto (laron t code = Absolute Immature Granulocyte (auto) 0.03 0-0.1 [facility] plasma amylase measurement (enzymatic activity/volume)2019-07-23 04:35:00* Test Item Value Reference Range Interpretation Comments Amylase Level (test code = 1798-8) 203 25-125 [facility] plasma triglyceride measurement (mass/volume)2019-07-22 15:02:00* Test Item Value Reference Range Interpretation Comments Triglycerides Level (test code = 2571-8) 2799 0-149 [facility] plasma cholesterol measurement (mass/volume)2019-07-22 15:02:00* Test Item Value Reference Range Interpretation Comments Cholesterol Level (test code = 2093-3) 343 0-199 Less than 200 mg/dL Low Gxek037 - 239 mg/dL Borderline Hflj433 m g/dl and greater High Risk [facility] cholesterol in HDL measurement (mass/volume) 2019-07-22 15:02:00* Test Item Value Reference Range Interpretation Comments HDL Cholesterol (test code = 2085-9) 25 40-60 [facility] total cholesterol/cholesterol in HDL mass wngvw5695-12-06 15:02:00* Test Item Value Reference Range Interpretation Comments Cholesterol/HDL Ratio (test code = 9830-1) 13.7 3.9-4.7 [facility]ballFluoroscopic procedure less than one hour hpfufmkh1018-01-23 11:28:00* Test Item Value Reference Range Interpretation Comments [...] complexity tests.Testing performed by [facility] [id number] [place], [place] [phone] Director: Orlando Hope M.D.CLIA # [id number] [facility]CT [facility]/PELVIS [id number] 10:37:00 [place] [address] Patient Name: DEANDRE PHILIP MR #: [id number] : 1985 Age/Sex: 34/M Req #: [id number] Adm Physician: Ordered by: AV BECKWITH MD Report #: [id number] Location: ER Room/Bed: Procedure: [id number] CT/CT ABDOMEN/PEL VIS W Exam Date: 07/22/19 Exam Time: 920 REPORT STATUS: Signed EXAM: CT Abdomen and Pelvis WITH contrast INDICATION: Abdominal pain, recent discharge for pa ncreatitis. COMPARISON: CT abdomen/pelvis 07-04-19. TECHNIQUE: Abdomen and pelvis were scanned utilizing a multidetector helical scanner from the maggie g base to the pubic symphysis after administration of IV contrast. Coronal and sagittal reformations were obtained. Routine protocol was performed. Scan was performed when during portal venous phase. IV CONTRAST: 100 cc of Is ovue-370 ORAL CONTRAST: None COMPLICATIONS: None RA DIATION DOSE: Total DLP: 748.7 mGy*cm Estimated effective dose: (D LP x 0.015 x size factor) mSv CTDIvol has been reviewed. It is below the limits set by the Radiation Protocol Committee (RPC). FINDINGS: LINES a nd TUBES: None. LOWER THORAX: Mild dependent atelectasis. HEPATOBILIA RY: Diffuse hepatic steatosis. No evidence of focal lesion. No biliary ductal dilation. GALLBLADDER: Status post cholecystectomy. SPLEEN: No spleno megaly. PANCREAS: There has been interval decrease in pancreatic edema inv olving the pancreatic head and uncinate process with decreased mild residual peripancreatic stranding near the uncinate process. No evidence of pancreatic hypoenhancement or fluid collection. No focal masses or ductal dilatation. ADRENALS: No adrenal nodules KIDNEYS/URETERS: No evidence of hydronephr osis or stone. Small subcentimeter renal hypodensities are too small to charac terize, likely cysts. GI TRACT: No evidence of wall thickening or distensi on. Appendix is normal. PELVIC ORGANS/BLADDER: Unremarkable. LYMPH NO LARA: No lymphadenopathy. VESSELS: Unremarkable. PERITONEUM / RETROPERI TONEUM: No free air or fluid. BONES AND SOFT TISSUES: No acute osseous abno rmality. Mild degenerative disc changes at L3-L4. No suspicious lytic or blast ic lesions. Small right greater than left fat-containing inguinal hernias. CONCLUSION: Findings suggestive of resolving or recurrent mild acute [place] pancreatitis. No evidence of pancreatic hypoenhancement or fluid collection . Diffuse hepatic steatosis. Signed by: Dr. Josee Melendrez MD on 07/22/2019 10:45 AM Dictated By: JOSEE MELENDREZ MD 104 Transcribed By: BHAKTI on 07/22/19 104 COPY TO: AV BECKWITH MD CHEST SINGLE (PORTABLE)2019-07-22 10:12:00 [place] [address] Patient Name: DEANDRE PHILIP MR #: [id number] : 1985 Age/Sex: 34/M Req #: [id number] Adm Physician: Ordered by: AV BECKWITH MD Report #: [id number] Location: ER Room/Bed: Procedure: [id number] DX/CHEST SINGLE ( PORTABLE) Exam Date: 07/22/19 Exam Time: 920 REPORT STATUS: Signed EXAMINATION: EST SINGLE (PORTABLE) INDICATION: ABD PAIN COMPARISON: Chest radi ograph 07/04/19. FINDINGS: TUBES and LINES: None. LUNGS: Low l mery volumes with vascular crowding. There is no evidence of pneumonia or pulmo nary edema. PLEURA: No pleural effusion or pneumothorax. HEART AND M EDIASTINUM: The cardiomediastinal silhouette is unremarkable. BONES AN D SOFT TISSUES: No acute osseous lesion. Soft tissues are unremarkable. UPPER ABDOMEN: No free air under the diaphragm. IMPRESSION: No acute thoracic abnormality. Signed by: Dr. Josee Melendrez MD on 07/22/2019 10:14 AM Dictated By: JOSEE MELENDREZ MD 1014 COPY TO: ASHLEE BECKWITH RD, MD Serum or plasma creatine kinase measurement (enzymatic activity/volume)2019-07-22 09:38:00* Test Item Value Reference Range Interpretation Comments Creatine Kinase (test code = 2157-6) 40 30-200 [facility] creatine kinase MB measurement (mass/volume)2019-07-22 09:38:00* Test Item Value Reference Range Interpretation Comments Creatine Kinase MB (test code = 59399-1) 0.60 0-5.0 [facility] TomballTroponin I measurement by highly sensitive enzyme sbovwrlecdc4818-21-73 09:38:00* Test Item Value Reference Range Interpretation Comments Troponin I (test code = 78037-6) < 0.001 0-0.300 [facility] TomballFluoroscopic procedure less than one hour dsfxgzku0307-80-26 09:00:00* Test Item Value Reference Range Interpretation Comments Lactic Acid Level (test code = Lactic Acid Level) 1.7 0.5- 2.0 [facility] TomballUrine color pkjfqophnvsgj7154-11-74 08:30:00* Test Item Value Reference Range Interpretation Comments Urine Color (test code = 5778-6) YELLOW YELLOW [facility] TomballUrine xwegtjc2805-84-37 08:30:00* Test Item Value Reference Range Interpretation Comments Urine Clarity (test code = 60915-0) CLEAR CLEAR [facility]pecific gravity of Urine by Test strip 2019-07-22 08:30:00* Test Item Value Reference Range Interpretation Comments Urine Specific Coats (test code = 5811-5) 1.030 1.010-1.02 5 [facility]ballUrine pH measurement by automated test gdrhb8889-56-16 08:30:00* Test Item Value Reference Range Interpretation Comments Urine pH (test code = 16324-5) 5 5-7 [facility]ballUrine leukocyte esterase detection by kmuujngx1403-24-73 08:30:00* Test Item Value Reference Range Interpretation Comments Urine Leukocyte Esterase (test code = 5799-2) NEGATIVE NEGATIVE [facility] TomballUrine nitrite bpvjbswyy1025-98-77 08:30:00* Test Item Value Reference Range Interpretation Comments Urine Nitrite (test code = 90031-3) NEGATIVE NEGATIVE [facility]ballUrine protein measurement by test strip (mass/volume)2019-07-22 08:30:00* Test Item Value Reference Range Interpretation Comments Urine Protein (test code = 5804-0) NEGATIVE NEGATIVE [facility]ballU[facility] glucose kvoqopkmt4374-45-17 08:30:00* Test Item Value Reference Range Interpretation Comments Urine Glucose (UA) (test code = 2349-9) 1+ NEGATIVE [facility]ballUrine ketones detection by automated test tkqhk3490-59-15 08:30:00* Test Item Value Reference Range Interpretation Comments Urine Ketones (test code = 59067-9) TRACE NEGATIVE [facility]ballUrine opiates screening heli4469-07-09 08:30:00* Test Item Value Reference Range Interpretation Comments Urine Opiates Screen (test code = 51374-1) POSITIVE NEGATIVE This test provides only a screen. Positive results should be repeated by a confi rmatory test.[facility]ballBarbiturates screen, urine 2019-07-22 08:30:00* Test Item Value Reference Range Interpretation Comments Urine Barbiturates Screen (test code = 947500257) NEGATIVE NEGA TIVE [facility] TomballUrine phencyclidine detection by screening htinbf4472-20-71 08:30:00* Test Item Value Reference Range Interpretation Comments Urine Phencyclidine Screen (test code = 49574-8) NEGATIVE NEGAT MIGUEL [facility] TomballUrine amphetamines detection by screen method > 1000 ng/sR8346-68-34 08:30:00* Test Item Value Reference Range Interpretation Comments Urine Amphetamines Screen (test code = 87538-1) NEGATIVE NEGATI VE [facility] TomballFluoroscopic procedure less than one hour jmaivhqx4475-48-34 08:30:00* Test Item Value Reference Range Interpretation Comments Urine Methamphetamines Screen (test code = Urine Metha mphetamines Screen) NEGATIVE NEGATIVE [facility]ballUrine benzodiazepines detection by screening wstwbl2763-99-80 08:30:00* Test Item Value Reference Range Interpretation Comments Urine Benzodiazepines Screen (test code = 38850-3) NEGATIVE NEG ATIVE [facility]ballUrine cocaine measurement (mass/volume) 2019-07-22 08:30:00* Test Item Value Reference Range Interpretation Comments Urine Cocaine Screen (test code = 3398-5) POSITIVE NEGATIVE This test provides only a screen. Positive results should be repeated by a confi rmatory test.[facility] TomballUrine cannabinoids detection by screening wfgocq4086-82-96 08:30:00* Test Item Value Reference Range Interpretation Comments Urine Cannabinoids Screen (test code = 70587-2) NEGATIVE NEGATI VE THESE RESULTS ARE FOR MEDICAL TREATMENT ONLYTHIS REPORT CONTAINS UNCONFIR MED SCREENING RESULTS*POSITIVE RESULTS WILL BE CONFIRMED BY REFERENCE LAB UPON R EQUEST CUT-OFFDRUG CLASS CONCENTRATION ng/mLAmphetamines 1000Methamphetamines 1000Cocaine 300Opiate 300Phencyc lidine 25Cannabinoid 50Barbiturates 300Benzodiazepine 300Methadone 300[facility] CenterUrine methadone lhyfhs7781-51-31 08:30:00* Test Item Value Reference Range Interpretation Comments Urine Methadone Screen (test code = 86157-2) NEGATIVE NEGATIVE THESE RESULTS ARE FOR MEDICAL TREATMENT ONLYTHIS REPORT CONTAINS UNCONFIR MED SCREENING RESULTS*POSITIVE RESULTS WILL BE CONFIRMED BY REFERENCE LAB UPON R EQUEST CUT-OFFDRUG CLASS CONCENTRATION ng/mLAmphetamines 1000Methamphetamines 1000Cocaine Metabolite 300Opiate 300Phencyc lidine 25Cannabinoid 50Barbiturates 300Benzodiazepine 300Methadone 300[facility] CenterUrine urobilinogen measurement by test strip (mass/volume)2019-07-22 08:30:00* Test Item Value Reference Range Interpretation Comments Urine Urobilinogen (test code = 15045-6) 0.2 0.2-1 [facility]ballUrine total bilirubin measurement (mass/volume)2019-07-22 08:30:00* Test Item Value Reference Range Interpretation Comments Urine Bilirubin (test code = 1978-6) NEGATIVE NEGATIVE [facility]ballUrine erythrocytes lmgdrxpnx8925-71-56 08:30:00* Test Item Value Reference Range Interpretation Comments Urine Blood (test code = 04693-8) NEGATIVE NEGATIVE [facility] TomballAutomated urine sediment leukocyte count by microscopy (number/high power field)2019-07-22 08:30:00* Test Item Value Reference Range Interpretation Comments Urine WBC (test code = 5821-4) 0-5 0-5 [facility] TomballErythrocytes detection in urine sediment by light kcfwcmkexg9867-57-42 08:30:00* Test Item Value Reference Range Interpretation Comments Urine RBC (test code = 33537-3) 0-5 0-5 [facility] TomballBacteria detection in urine sediment by light anlypywdie1727-30-70 08:30:00* Test Item Value Reference Range Interpretation Comments Urine Bacteria (test code = 00194-0) NONE NONE [facility] TomballEpithelial cells detection in urine sediment by light hmuiolzqya2432-95-70 08:30:00* Test Item Value Reference Range Interpretation Comments Urine Epithelial Cells (test code = 84653-7) NONE NONE [facility] TomballMucus detection in urine sediment by light vzgvycuexa5754-56-29 08:30:00* Test Item Value Reference Range Interpretation Comments Urine Mucus (test code = 8247-9) FEW RARE [facility] TomballBlood cumcjfy7591-57-71 08:30:00* Test Item Value Reference Range Interpretation Comments Blood Culture (test code = 63092409) NO GROWTH AFTER [address] [facility]er[facility] plasma acetaminophen measurement by screening method (mass/volume)2019-07-22 08:20:00* Test Item Value Reference Range Interpretation Comments Acetaminophen Level (test code = 65569-5) 4.2 10-30 [facility]er[facility] plasma ethanol measurement (mass/volume)2019-07-22 08:20:00* Test Item Value Reference Range Interpretation Comments Ethyl Alcohol Level (test code = 5643-2) < 10.0 0.0-10.0 [facility]er[facility] or plasma salicylates measurement (mass/volume)2019-07-22 08:20:00* Test Item Value Reference Range Interpretation Comments Salicylates Level (test code = 4024-6) < 5.0 0-30 [facility] plasma total bilirubin measurement (mass/volume)2019-07-22 07:30:00* Test Item Value Reference Range Interpretation Comments Total Bilirubin (test code = 1975-2) 0.4 0.2-1.2 [facility]ballFluoroscopic procedure less than one hour nkumdpnt1218-51-20 07:30:00* Test Item Value Reference Range Interpretation Comments Aspartate Amino Transf (AST/SGOT) (test code = Aspartate Amino Transf (AST/SGOT)) 7 5-34 [facility] plasma alanine aminotransferase measurement (enzymatic activity/volume)2019-07-22 07:30:00* Test Item Value Reference Range Interpretation Comments Alanine Aminotransferase (ALT/SGPT) (test code = 1742-6) 12 0-55 [facility] plasma protein measurement (mass/volume)2019-07-22 07:30:00* Test Item Value Reference Range Interpretation Comments Total Protein (test code = 2885-2) 9.7 6.5-8.1 [facility] plasma albumin measurement (mass/volume)2019-07-22 07:30:00* Test Item Value Reference Range Interpretation Comments Albumin (test code = 1751-7) 4.0 3.5-5.0 [facility] TomballPlasma globulin measurement (mass/volume) 2019-07-22 07:30:00* Test Item Value Reference Range Interpretation Comments Globulin (test code = 80265-9) 5.7 2.3-3.5 [facility] plasma albumin/globulin mass dldad0469-97-57 07:30:00* Test Item Value Reference Range Interpretation Comments Albumin/Globulin Ratio (test code = 1759-0) 0.7 0.8-2.0 [facility] plasma alkaline phosphatase measurement (enzymatic activity/volume)2019-07-22 07:30:00* Test Item Value Reference Range Interpretation Comments Alkaline Phosphatase (test code = 6768-6) 112 40-150 [facility]er[facility] or plasma sodium measurement (moles/volume)2019-07-08 14:34:00* Test Item Value Reference Range Interpretation Comments Sodium Level (test code = 2951-2) 138 136-145 [facility]er[facility] plasma potassium measurement (moles/volume)2019-07-08 14:34:00* Test Item Value Reference Range Interpretation Comments Potassium Level (test code = 2823-3) 4.4 3.5-5.1 [facility] or plasma chloride measurement (moles/volume)2019-07-08 14:34:00* Test Item Value Reference Range Interpretation Comments Chloride Level (test code = 2075-0) 100 98-107 [facility]er[facility] or plasma carbon dioxide, total measurement (moles/volume)2019-07-08 14:34:00* Test Item Value Reference Range Interpretation Comments Carbon Dioxide Level (test code = 2028-9) 29 22-29 [facility]er[facility] or plasma anion zyb7519-16-68 14:34:00* Test Item Value Reference Range Interpretation Comments Anion Gap (test code = 75353-0) 13.4 8-16 [facility]er[facility] plasma urea nitrogen measurement (mass/volume)2019-07-08 14:34:00* Test Item Value Reference Range Interpretation Comments Blood Urea Nitrogen (test code = 3094-0) 7 7-26 [facility] plasma creatinine measurement (mass/volume)2019-07-08 14:34:00* Test Item Value Reference Range Interpretation Comments Creatinine (test code = 2160-0) 0.77 0.72-1.25 [facility] or plasma urea nitrogen/creatinine mass ixolk4440-08-88 14:34:00* Test Item Value Reference Range Interpretation Comments BUN/Creatinine Ratio (test code = 3097-3) 9 6-25 [facility] TomballEstimated glomerular filtration rate (GFR) dvwifrsvmetua0961-17-03 14:34:00* Test Item Value Reference Range Interpretation Comments Estimat Glomerular Filtration Rate (test code = 683157612) > 60 >60 Ranges were taken from the National Kidney Disease Education Program and the [facility] literature.Reference ranges:60 or greater: Ktoslm53-33 ( for 3 consecutive months): Chronic kidney disease 15 or less: Kidney failureHCA Houston Healthcare TomballGlucose rkwuvzkxmbr7711-69-35 14:34:00* Test Item Value Reference Range Interpretation Comments Glucose Level (test code = IOG3881) 256 74-118 [facility] plasma calcium measurement (mass/volume)2019-07-08 14:34:00* Test Item Value Reference Range Interpretation Comments Calcium Level (test code = 97021-3) 10.1 8.4-10.2 [facility] TomballCapillary blood glucose measurement by glucometer (mass/volume)2019-07-08 07:49:00* Test Item Value Reference Range Interpretation Comments Bedside Glucose (test code = 62288-8) 134 70-120 Meter ID: [id number] Scott & White [facility] Center – BrenhamBlood leukocytes automated count (number/volume)2019-07-07 05:30:00* Test Item Value Reference Range Interpretation Comments White Blood Count (test code = 6690-2) 4.71 4.8-10.8 [facility] TomballBlood erythrocytes automated count (number/volume)2019-07-07 05:30:00* Test Item Value Reference Range Interpretation Comments Red Blood Count (test code = 789-8) 4.86 4.3-5.7 [facility] TomballBlood hemoglobin measurement (moles/volume)2019-07-07 05:30:00* Test Item Value Reference Range Interpretation Comments Hemoglobin (test code = 56263-4) 13.5 14.0-18.0 [facility] TomballAutomated blood hematocrit (volume fraction)2019-07-07 05:30:00* Test Item Value Reference Range Interpretation Comments Hematocrit (test code = 4544-3) 41.9 38.2-49.6 [facility] TomballAutomated erythrocyte mean corpuscular zphztg9862-27-11 05:30:00* Test Item Value Reference Range Interpretation Comments Mean Corpuscular Volume (test code = 787-2) 86.2 81-99 [facility] TomballAutomated erythrocyte mean corpuscular hemoglobin (mass per erythrocyte)2019-07-07 05:30:00* Test Item Value Reference Range Interpretation Comments Mean Corpuscular Hemoglobin (test code = 785-6) 27.8 28-32 [facility] TomballAutomated erythrocyte mean corpuscular hemoglobin concentration measurement (mass/volume)2019-07-07 05:30:00* Test Item Value Reference Range Interpretation Comments Mean Corpuscular Hemoglobin Concent (test code = 786-4) 32.2 31-35 [facility] TomballRDW DzcHl-Gzq0363-03-23 05:30:00* Test Item Value Reference Range Interpretation Comments Red Cell Distribution Width (test code = 09327-7) 13.2 11.7 -14.4 [facility] TomballAutcommunity healthed blood platelet count (count/volume)2019-07-07 05:30:00* Test Item Value Reference Range Interpretation Comments Platelet Count (test code = 777-3) 248 140-360 [facility] TomballAutcommunity healthed blood segmented neutrophil count as percentage of total schyaxqkxu7375-43-95 05:30:00* Test Item Value Reference Range Interpretation Comments Neutrophils (%) (Auto) (test code = 72501-7) 48.9 38.7-80.0 [facility] blood lymphocyte count as percentage ot total fbjzklejlo8907-06-37 05:30:00* Test Item Value Reference Range Interpretation Comments Lymphocytes (%) (Auto) (test code = 736-9) 32.9 18.0-39.1 [facility] TomballAutomated blood monocyte count as percentage of total ojfhjznzpr4475-39-24 05:30:00* Test Item Value Reference Range Interpretation Comments Monocytes (%) (Auto) (test code = 5905-5) 9.3 4.4-11.3 [facility]ballAutcommunity healthed blood eosinophil count as percentage of total lltfnuufgn6455-85-08 05:30:00* Test Item Value Reference Range Interpretation Comments Eosinophils (%) (Auto) (test code = 713-8) 7.9 0.0-6.0 [facility] TomballAutomated blood basophil count as percentage of total qmhhwchzaj6582-71-55 05:30:00* Test Item Value Reference Range Interpretation Comments Basophils (%) (Auto) (test code = 706-2) 0.6 0.0-1.0 [facility] TomballFluoroscopic procedure less than one hour ysimlrhh6802-59-52 05:30:00* Test Item Value Reference Range Interpretation Comments IM GRANULOCYTES % (test code = IM GRANULOCYTES %) 0.4 0.0- 1.0 [facility] TomballAutomated blood neutrophil count 2019-07-07 05:30:00* Test Item Value Reference Range Interpretation Comments Neutrophils # (Auto) (test code = 751-8) 2.3 2.1-6.9 [facility] TomballBlood lymphocytes count (number/volume) 2019-07-07 05:30:00* Test Item Value Reference Range Interpretation Comments Lymphocytes # (Auto) (test code = 27556-9) 1.6 1.0-3.2 [facility] TomballBlood monocytes automated count (number/volume)2019-07-07 05:30:00* Test Item Value Reference Range Interpretation Comments Monocytes # (Auto) (test code = 742-7) 0.4 0.2-0.8 [facility] TomballAutomated blood eosinophil count 2019-07-07 05:30:00* Test Item Value Reference Range Interpretation Comments Eosinophils # (Auto) (test code = 711-2) 0.4 0.0-0.4 [facility] TomballAutomated blood basophil count (count/volume)2019-07-07 05:30:00* Test Item Value Reference Range Interpretation Comments Basophils # (Auto) (test code = 704-7) 0.0 0.0-0.1 [facility] TomballFluoroscopic procedure less than one hour wssoarge2372-82-27 05:30:00* Test Item Value Reference Range Interpretation Comments Absolute Immature Granulocyte (auto (laron t code = Absolute Immature Granulocyte (auto) 0.02 0-0.1 [facility] plasma lipase measurement (enzymatic activity/volume)2019-07-07 05:30:00* Test Item Value Reference Range Interpretation Comments Lipase (test code = 3040-3) 65 8-78 [facility] TomballFluoroscopic procedure less than one hour sskmdfdw2358-16-88 05:20:00* Test Item Value Reference Range Interpretation Comments Hemoglobin A1c Percent (test code = Hemoglobin A1c Percent) 10.7 4.0-7.0 [facility] plasma total bilirubin measurement (mass/volume)2019-07-05 05:20:00* Test Item Value Reference Range Interpretation Comments Total Bilirubin (test code = 1975-2) 0.7 0.2-1.2 [facility] TomballFluoroscopic procedure less than one hour shcnvtxf7251-54-20 05:20:00* Test Item Value Reference Range Interpretation Comments Aspartate Amino Transf (AST/SGOT) (test code = Aspartate Amino Transf (AST/SGOT)) 29 5-34 [facility] plasma alanine aminotransferase measurement (enzymatic activity/volume)2019-07-05 05:20:00* Test Item Value Reference Range Interpretation Comments Alanine Aminotransferase (ALT/SGPT) (test code = 1742-6) 36 0-55 [facility]er[facility] plasma protein measurement (mass/volume)2019-07-05 05:20:00* Test Item Value Reference Range Interpretation Comments Total Protein (test code = 2885-2) 6.3 6.5-8.1 [facility]er[facility] plasma albumin measurement (mass/volume)2019-07-05 05:20:00* Test Item Value Reference Range Interpretation Comments Albumin (test code = 1751-7) 3.2 3.5-5.0 [facility] TomballPlasma globulin measurement (mass/volume) 2019-07-05 05:20:00* Test Item Value Reference Range Interpretation Comments Globulin (test code = 37173-7) 3.1 2.3-3.5 [facility]er[facility] or plasma albumin/globulin mass cpqzj1330-00-53 05:20:00* Test Item Value Reference Range Interpretation Comments Albumin/Globulin Ratio (test code = 1759-0) 1.0 0.8-2.0 [facility]er[facility] or plasma alkaline phosphatase measurement (enzymatic activity/volume)2019-07-05 05:20:00* Test Item Value Reference Range Interpretation Comments Alkaline Phosphatase (test code = 6768-6) 104 40-150 [facility] thyrotropin measurement by detection limit <= 0.005 miu/l (units/volume)2019-07-05 05:20:00* Test Item Value Reference Range Interpretation Comments Thyroid Stimulating Hormone (TSH) (test code = 31817-7) 2.097 0.350-4.940 [facility]ballFluoroscopic procedure less than one hour mgfzdiiq9218-82-25 05:20:00* Test Item Value Reference Range Interpretation Comments Hemoglobin A1c Percent (test code = Hemoglobin A1c Percent) 10.7 4.0-7.0 [facility] thyrotropin measurement by detection limit <= 0.005 miu/l (units/volume)2019-07-05 05:20:00* Test Item Value Reference Range Interpretation Comments Thyroid Stimulating Hormone (TSH) (test code = 15428-3) 2.097 0.350-4.940 [facility]ballFluoroscopic procedure less than one hour atrplwkn6484-76-00 18:03:00* Test Item Value Reference Range Interpretation [...] complexity tests.Testing performed by [facility] [address] [place] [address] [phone] Director: Orlando Hope M.D.CLIA # [id number] [facility] CenterUrine color ojoqnhzxcmgqd9942-89-33 16:11:00* Test Item Value Reference Range Interpretation Comments Urine Color (test code = 5778-6) YELLOW YELLOW [facility] CenterUrine fnmyotd8036-93-54 16:11:00* Test Item Value Reference Range Interpretation Comments Urine Clarity (test code = 46963-3) SL CLOUDY CLEAR [facility]pecific gravity of Urine by Test strip 2019-07-04 16:11:00* Test Item Value Reference Range Interpretation Comments Urine Specific Coats (test code = 5811-5) 1.020 1.010-1.02 5 [facility]ball[facility] pH measurement by automated test vnskq1364-35-41 16:11:00* Test Item Value Reference Range Interpretation Comments Urine pH (test code = 84754-7) 5 5-7 [facility]ball[facility] leukocyte esterase detection by oqilflwz1521-97-21 16:11:00* Test Item Value Reference Range Interpretation Comments Urine Leukocyte Esterase (test code = 5799-2) NEGATIVE NEGATIVE [facility]ballUrine nitrite tkbzwftav5001-54-20 16:11:00* Test Item Value Reference Range Interpretation Comments Urine Nitrite (test code = 69053-8) NEGATIVE NEGATIVE [facility]ball[facility] protein measurement by test strip (mass/volume)2019-07-04 16:11:00* Test Item Value Reference Range Interpretation Comments Urine Protein (test code = 5804-0) 1+ NEGATIVE [facility]ballU[facility] glucose sjwldzloo7661-59-41 16:11:00* Test Item Value Reference Range Interpretation Comments Urine Glucose (UA) (test code = 2349-9) 2+ NEGATIVE [facility]ball[facility] ketones detection by automated test vimfl9973-52-15 16:11:00* Test Item Value Reference Range Interpretation Comments Urine Ketones (test code = 93519-6) 2+ NEGATIVE [facility]ball[facility] opiates screening qhmj3861-59-34 16:11:00* Test Item Value Reference Range Interpretation Comments Urine Opiates Screen (test code = 23456-7) POSITIVE NEGATIVE ALL TESTS PERFORMED MANUALLY ON [employer] TOX/SEE TEST This test provides only a sc reen. Positive results should be repeated by a confirmatory test.[facility] TomballBarbiturates screen, ytajz0535-41-18 16:11:00* Test Item Value Reference Range Interpretation Comments Urine Barbiturates Screen (test code = 230483764) NEGATIVE NEGA TIVE [facility]ballUrine phencyclidine detection by screening xcatkm5408-46-90 16:11:00* Test Item Value Reference Range Interpretation Comments Urine Phencyclidine Screen (test code = 35056-0) NEGATIVE NEGAT MIGUEL [facility]ballUrine amphetamines detection by screen method > 1000 ng/mQ2819-53-29 16:11:00* Test Item Value Reference Range Interpretation Comments Urine Amphetamines Screen (test code = 97141-2) NEGATIVE NEGATI VE [facility]ballFluoroscopic procedure less than one hour czhhetjq9099-31-21 16:11:00* Test Item Value Reference Range Interpretation Comments Urine Methamphetamines Screen (test code = Urine Metha mphetamines Screen) NEGATIVE NEGATIVE [facility]ballUrine benzodiazepines detection by screening bnekft8372-21-44 16:11:00* Test Item Value Reference Range Interpretation Comments Urine Benzodiazepines Screen (test code = 61725-4) NEGATIVE NEG ATIVE [facility] TomballUrine cocaine measurement (mass/volume) 2019-07-04 16:11:00* Test Item Value Reference Range Interpretation Comments Urine Cocaine Screen (test code = 3398-5) NEGATIVE NEGATIVE [facility] TomballUrine cannabinoids detection by screening mkmdam4856-07-47 16:11:00* Test Item Value Reference Range Interpretation Comments Urine Cannabinoids Screen (test code = 12772-8) NEGATIVE NEGATI VE THESE RESULTS ARE FOR MEDICAL TREATMENT ONLYTHIS REPORT CONTAINS UNCONFIR MED SCREENING RESULTS*POSITIVE RESULTS WILL BE CONFIRMED BY REFERENCE LAB UPON R EQUEST CUT-OFFDRUG CLASS CONCENTRATION ng/mLAmphetamines 1000Methamphetamines 1000Cocaine 300Opiate 300Phencyc lidine 25Cannabinoid 50Barbiturates 300Benzodiazepine 300Methadone 300[facility] CenterUrine methadone npeigz0675-21-88 16:11:00* Test Item Value Reference Range Interpretation Comments Urine Methadone Screen (test code = 65937-7) NEGATIVE NEGATIVE THESE RESULTS ARE FOR MEDICAL TREATMENT ONLYTHIS REPORT CONTAINS UNCONFIR MED SCREENING RESULTS*POSITIVE RESULTS WILL BE CONFIRMED BY REFERENCE LAB UPON R EQUEST CUT-OFFDRUG CLASS CONCENTRATION ng/mLAmphetamines 1000Methamphetamines 1000Cocaine Metabolite 300Opiate 300Phencyc lidine 25Cannabinoid 50Barbiturates 300Benzodiazepine 300Methadone 300[facility] CenterUrine urobilinogen measurement by test strip (mass/volume)2019-07-04 16:11:00* Test Item Value Reference Range Interpretation Comments Urine Urobilinogen (test code = 20273-0) 0.2 0.2-1 [facility]ballU[facility] total bilirubin measurement (mass/volume)2019-07-04 16:11:00* Test Item Value Reference Range Interpretation Comments Urine Bilirubin (test code = 1978-6) SMALL NEGATIVE [facility]ballUrine erythrocytes rljkvdecd8914-30-59 16:11:00* Test Item Value Reference Range Interpretation Comments Urine Blood (test code = 51110-7) NEGATIVE NEGATIVE [facility] TomballAutomated urine sediment leukocyte count by microscopy (number/high power field)2019-07-04 16:11:00* Test Item Value Reference Range Interpretation Comments Urine WBC (test code = 5821-4) NONE 0-5 [facility]ballErythrocytes detection in urine sediment by light hdvvdlravv7623-21-21 16:11:00* Test Item Value Reference Range Interpretation Comments Urine RBC (test code = 05888-0) 0-5 0-5 [facility]ballBacteria detection in urine sediment by light dwkngoxict3190-74-36 16:11:00* Test Item Value Reference Range Interpretation Comments Urine Bacteria (test code = 97737-1) FEW NONE [facility] TomballEpithelial cells detection in urine sediment by light arxetxbxnu2234-26-31 16:11:00* Test Item Value Reference Range Interpretation Comments Urine Epithelial Cells (test code = 33530-7) NONE NONE [facility] TomballCT ABDOMEN/PELVIS S7178-49-22 14:50:00 [facility] [address] [address] Patient Name: DEANDRE PHILIP MR #: [id number] : 1985 Age/Sex: 34/M Req #: [id number] Adm Physician: Ordered by: AV BECKWITH MD Report #: [id number] Location: ER Room/Bed: Procedure: [id number] CT/CT ABDOMEN/PEL VIS W Exam Date: 07/04/19 [...] 2:53 PM Dictated By: TRAVIS SMITH MD [id number] Transcribed By: BHAKTI on 07/04/19 6991 COPY TO: AV BECKWITH MD Arterial blood pH fznpjncyxzx2512-06-32 13:43:00* Test Item Value Reference Range Interpretation Comments Arterial Blood pH (test code = 2744-1) 7.35 7.35-7.45 [facility] TomballpCO2 OvyL1091-87-93 13:43:00* Test Item Value Reference Range Interpretation Comments Arterial Blood Partial Pressure CO2 (test code = 2019-8) 40 35-45 [facility] TomballArterial blood bicarbonate measurement (moles/volume)2019-07-04 13:43:00* Test Item Value Reference Range Interpretation Comments Arterial Blood HCO3 (test code = 1960-4) [facility]ballArterial blood base excess by calculation 2019-07-04 13:43:00* Test Item Value Reference Range Interpretation Comments Arterial Blood Base Excess (test code = 1925-7) -3.0 -2-3 [facility] TomballFluoroscopic procedure less than one hour kzvgjibg8231-58-35 13:43:00* Test Item Value Reference Range Interpretation Comments FiO2 (test code = FiO2) 21 [facility] TomballArterial blood pH clnyswnmhbz0425-42-75 13:43:00* Test Item Value Reference Range Interpretation Comments Arterial Blood pH (test code = 2744-1) 7.35 7.35-7.45 [facility] TomballpCO2 TsgU1667-55-02 13:43:00* Test Item Value Reference Range Interpretation Comments Arterial Blood Partial Pressure CO2 (test code = 2018-8) 40 35-45 [facility] TomballArterial blood bicarbonate measurement (moles/volume)2019-07-04 13:43:00* Test Item Value Reference Range Interpretation Comments Arterial Blood HCO3 (test code = 1960-4) [facility] TomballArterial blood base excess by calculation 2019-07-04 13:43:00* Test Item Value Reference Range Interpretation Comments Arterial Blood Base Excess (test code = 1925-7) -3.0 -2-3 [facility] TomballFluoroscopic procedure less than one hour zgbcluuu3859-49-97 13:43:00* Test Item Value Reference Range Interpretation Comments FiO2 (test code = FiO2) 21 [facility] TomballCHEST SINGLE (PORTABLE)2019-07-04 13:06:00 [facility] [address] [address] Patient Name: DEANDRE PHILIP MR #: [id number] : 1985 Age/Sex: 34/M Req #: [id number] Adm Physician: Ordered by: AV BECKWITH MD Report #: [id number] Location: ER Room/Bed: Procedure: [id number] DX/CHEST SINGLE ( PORTABLE) Exam Date: 07/04/19 [...] (PT) in platelet poor plasma by coagulation nsldu7803-88-88 11:32:00* Test Item Value Reference Range Interpretation Comments Prothrombin Time (test code = 5902-2) 12.5 11.9-14.5 [facility] TomballINR in Platelet poor plasma by Coagulation vkvoa6514-58-80 11:32:00* Test Item Value Reference Range Interpretation Comments Prothromb Time International Ratio (test code = 6301-6) 0.88 Oral Anticoagulant Therapy INR Values:1. Low Intensity Therapy 1.5 - 2.02 . Moderate Intensity Therapy 2.0 - 3.03. High Intensity Therapy(1) 2.5 - 3. 54. High Intensity Therapy(2) 3.0 - 4.05. Panic Value INR > 5.0 [facility] TomballActivated partial thromboplastin time (aPTT) in platelet poor plasma by coagulation salmv2735-12-38 11:32:00* Test Item Value Reference Range Interpretation Comments Activated Partial Thromboplast Time (test code = 38057-1) 26.8 23.8-35.5 [facility] TomballFluoroscopic procedure less than one hour mopxwhfy8208-74-68 11:32:00* Test Item Value Reference Range Interpretation Comments Lactic Acid Level (test code = Lactic Acid Level) 1.0 0.5- 2.0 [facility] magnesium measurement (mass/volume)2019-07-04 11:32:00* Test Item Value Reference Range Interpretation Comments Magnesium Level (test code = 85837-0) 1.6 1.3-2.1 [facility]er[facility] or plasma triglyceride measurement (mass/volume)2019-07-04 11:32:00* Test Item Value Reference Range Interpretation Comments Triglycerides Level (test code = 2571-8) 1948 0-149 [facility] plasma cholesterol measurement (mass/volume)2019-07-04 11:32:00* Test Item Value Reference Range Interpretation Comments Cholesterol Level (test code = 2093-3) 395 0-199 Less than 200 mg/dL Low Dwwc534 - 239 mg/dL Borderline Tzew086 m g/dl and greater High Risk [facility] plasma cholesterol in HDL measurement (mass/volume) 2019-07-04 11:32:00* Test Item Value Reference Range Interpretation Comments HDL Cholesterol (test code = 2085-9) 25 40-60 [facility]er[facility] or plasma total cholesterol/cholesterol in HDL mass umbdm4246-76-73 11:32:00* Test Item Value Reference Range Interpretation Comments Cholesterol/HDL Ratio (test code = 9830-1) 15.8 3.9-4.7 [facility] or plasma creatine kinase measurement (enzymatic activity/volume)2019-07-04 11:32:00* Test Item Value Reference Range Interpretation Comments Creatine Kinase (test code = 2157-6) 40 30-200 [facility] or plasma creatine kinase MB measurement (mass/volume)2019-07-04 11:32:00* Test Item Value Reference Range Interpretation Comments Creatine Kinase MB (test code = 61393-1) 0.60 0-5.0 [facility] TomballTroponin I measurement by highly sensitive enzyme tgnpsapgjcr3603-16-32 11:32:00* Test Item Value Reference Range Interpretation Comments Troponin I (test code = 42182-0) < 0.001 0-0.300 [facility] TomballBlood rrxetrv6404-07-67 11:32:00* Test Item Value Reference Range Interpretation Comments Blood Culture (test code = 53211685) NO GROWTH AFTER 72 HOURS [facility] TomballProthrombin time (PT) in platelet poor plasma by coagulation nyecb5719-45-90 11:32:00* Test Item Value Reference Range Interpretation Comments Prothrombin Time (test code = 5902-2) 12.5 11.9-14.5 [facility] TomballINR in Platelet poor plasma by Coagulation jxtgn8564-43-87 11:32:00* Test Item Value Reference Range Interpretation Comments Prothromb Time International Ratio (test code = 6301-6) 0.88 Oral Anticoagulant Therapy INR Values:1. Low Intensity Therapy 1.5 - 2.02 . Moderate Intensity Therapy 2.0 - 3.03. High Intensity Therapy(1) 2.5 - 3. 54. High Intensity Therapy(2) 3.0 - 4.05. Panic Value INR > 5.0 [facility] TomballActivated partial thromboplastin time (aPTT) in platelet poor plasma by coagulation lqjty2171-55-36 11:32:00* Test Item Value Reference Range Interpretation Comments Activated Partial Thromboplast Time (test code = 64205-9) 26.8 23.8-35.[address] [facility] CenterSer[facility] or plasma magnesium measurement (mass/volume)2019-07-04 11:32:00* Test Item Value Reference Range Interpretation Comments Magnesium Level (test code = 19177-9) 1.6 1.3-2.1 [facility] TomballGLUBED2020-05-01 12:00:00* Test Item Value Reference Range Interpretation Comments GLUBED (test code = GLUBED) 223 mg/dL 74-106 H [facility] certified [facility]~ ZXHITE2698-10-28 06:14:00* Test Item Value Reference Range Interpretation Comments GLUBED (test code = GLUBED) 125 mg/dL 74-106 H Performed by certified foam machine operator at [facility] CBC W/AUTO CDTM7607-67-08 02:52:00* Test Item Value Reference Range Interpretation [...] (test code = MDIFF) NO COMPREHENSIVE METABOLIC TSOPF9768-80-40 02:25:00* Test Item Value Reference Range Interpretation [...] reference range due to change in reagent. DLJICJ7926-68-51 02:25:00* Test Item Value Reference Range Interpretation Comments LIPASE (test code = LIP) 546 U/L 73.0-393.0 H CXUITYJDD7738-41-67 02:25:00* Test Item Value Reference Range Interpretation Comments MAGNESIUM (test code = MAG) 2.0 mg/dL 1.8-2.4 N IETIXA6469-57-05 00:08:00* Test Item Value Reference Range Interpretation Comments GLUBED (test code = GLUBED) 159 mg/dL 74-106 H Performed by certified foam machine operator at [facility] JELHEE2245-64-22 17:53:00* Test Item Value Reference Range Interpretation Comments GLUBED (test code = GLUBED) 139 mg/dL 74-106 H Performed by certified foam machine operator at [facility] IOCFGW2411-63-78 11:57:00* Test Item Value Reference Range Interpretation Comments GLUBED (test code = GLUBED) 160 mg/dL 74-106 H Performed by certified foam machine operator [facility]~ ACUTE HEPATITIS GTAVY4345-85-54 08:09:00* Test Item Value Reference Range Interpretation [...] with a HCV Nucleic Acid Amplification test (192118).Performed At: [facility] [address] [id number] Jadon Carvalho MD Ph:[phone] KNGXRO9674-07-21 08:07:00* Test Item Value Reference Range Interpretation Comments GLUBED (test code = GLUBED) 166 mg/dL 74-106 H Performed by certified foam machine operator [facility]~ NQENQW6136-86-95 05:39:00* Test Item Value Reference Range Interpretation Comments GLUBED (test code = GLUBED) 152 mg/dL 74-106 H Performed by certified foam machine operator [facility]~ COMPREHENSIVE METABOLIC HWTKB9106-39-48 03:05:00* Test Item Value Reference Range Interpretation [...] reference range due to change in reagent. [id number] 03:05:00* Test Item Value Reference Range Interpretation Comments LIPASE (test code = LIP) 1815 U/L 73.0-393.0 H WPOORBVGA4203-70-05 03:05:00* Test Item Value Reference Range Interpretation Comments MAGNESIUM (test code = MAG) 1.9 mg/dL 1.8-2.4 N CBC W/AUTO BHBQ3543-25-39 02:42:00* Test Item Value Reference Range Interpretation [...] DIFF REQUIRED (test code = MDIFF) NO SRMNUI0023-07-42 00:19:00* Test Item Value Reference Range Interpretation Comments GLUBED (test code = GLUBED) 197 mg/dL 74-106 H Performed by certified foam machine operator [facility]~ YACBVX0701-37-19 20:25:00* Test Item Value Reference Range Interpretation Comments GLUBED (test code = GLUBED) 214 mg/dL 74-106 H Performed by certified foam machine operator [facility]~ YUCDQM6863-82-36 18:18:00* Test Item Value Reference Range Interpretation Comments GLUBED (test code = GLUBED) 234 mg/dL 74-106 H Performed by certified foam machine operator at [facility] WACQPL1974-08-97 12:02:00* Test Item Value Reference Range Interpretation Comments GLUBED (test code = GLUBED) 215 mg/dL 74-106 H Performed by certified foam machine operator at [facility] FKEOZG3415-17-41 08:01:00* Test Item Value Reference Range Interpretation Comments GLUBED (test code = GLUBED) 203 mg/dL 74-106 H Performed by certified foam machine operator at [facility] COMPREHENSIVE METABOLIC [id number] 07:38:00* Test Item Value Reference Range Interpretation [...] This LDL result is a direct measurement.========= MIYCUB4073-87-79 07:38:00* Test Item Value Reference Range Interpretation Comments LIPASE (test code = LIP) 12126 U/L 73.0-393.0 H THYROID STIMULATING VPBNXNY5945-07-84 07:38:00* Test Item Value Reference Range Interpretation Comments THYROID STIMULATING HORMONE (test code = TSH) 2.460 uIU/mL 0.36-3.7 4 N TSH REFERENCE RANGES: EUTHYROID: 0.35 - 4.3 mIU/mL HYPO : > 5.5 mIU/mL HYPER : < 0.35 mIU/mL [id number] 07:17:00* Test Item Value Reference Range Interpretation Comments GLYCOSYLATED HEMOGLOBIN (HA1C) (test code = GLYHGB) 9.0 % HbA1 SUGGESTED DIAGNOSIS: HbA1C (%) Diabetic >6.4Prediabetes 5.7 - 6.4Normal <5.7 ESTIMATED AVERAGE GLUCOSE (test code = EAG) 212 MG/DL [id number] 07:17:00* Test Item Value Reference Range Interpretation Comments AMMONIA (test code = AMM) 66 umol/L 11-32 H CBC W/AUTO [id number] 07:06:00* Test Item Value Reference Range Interpretation [...] 0.00 K/mm3 0.0-0.1 N - US ABDOMEN UKUEAFCG9480-34-01 07:05:00 Name: DEANDRE PHILIP [facility] : 1985 Age/S: 34 / M [address] [facility] [address] [facility] Unit #: [id number] Loc: [place] [address] Phys: Kasey Heller MD Acct: [id number] Dis Date: Status: ADM IN PHONE #: [phone] Exam Date: 06/12/2019 0013 FAX #: [phone] Reason: Elevated liapse ,ammonia EXAMS: CPT CODE: [id number] US ABDOMEN COMPLETE 21811 HISTORY: Elevated lipase and pneumonia. COMPARISON: CT [...] KENNEDI RUSH RDMS Trnscb Date/Time: 06/13/2019 (704) t.SDR.TH4 Orig Print D/T: S: 06/13/2019 (707) Probe: PAGE 1 Signed Report CBC W/AUTO [id number] 06:59:00* Test Item Value Reference Range Interpretation [...] # (test code = BA#) K/mm3 0.0-0.2 [id number] 05:00:00* Test Item Value Reference Range Interpretation Comments GLUBED (test code = GLUBED) 205 mg/dL 74-106 H Performed by certified foam machine operator at [facility] AUEBQX7717-80-27 00:54:00* Test Item Value Reference Range Interpretation Comments GLUBED (test code = GLUBED) 248 mg/dL 74-106 H Performed by certified foam machine operator at [facility] TKPEIL9921-08-53 00:54:00* Test Item Value Reference Range Interpretation Comments GLUBED (test code = GLUBED) 248 mg/dL 74-106 H Performed by certified foam machine operator at [facility] QWLMUE2660-29-42 20:59:00* Test Item Value Reference Range Interpretation Comments GLUBED (test code = GLUBED) 192 mg/dL 74-106 H Performed by certified foam machine operator at [facility] IXQODP7896-60-18 17:39:00* Test Item Value Reference Range Interpretation Comments GLUBED (test code = GLUBED) 175 mg/dL 74-106 H Performed by certified foam machine operator at [facility] AQZURPZ2564-78-77 15:21:00* Test Item Value Reference Range Interpretation Comments AMMONIA (test code = AMM) 120 umol/L 11-32 H [id number] 15:18:00* Test Item Value Reference Range Interpretation Comments PHOSPHORUS (test code = PHOS) 3.7 mg/dL 2.5-4.9 N [id number] 15:18:00* Test Item Value Reference Range Interpretation Comments MAGNESIUM (test code = MAG) 2.1 mg/dL 1.8-2.4 N FOLIC [id number] 15:18:00* Test Item Value Reference Range Interpretation Comments FOLIC ACID (test code = FOL) 19.6 ng/mL 3.10-17.50 H [id number] 14:56:00* Test Item Value Reference Range Interpretation Comments GLUBED (test code = GLUBED) 213 mg/dL 74-106 H Performed by certified foam machine operator at [facility] DRUGS OF ABUSE SCREEN [id number] 14:54:00* Test Item Value Reference Range Interpretation Comments UA PH DIPSTICK (test code = EZUS) 5.5 5.0-8.0 URN COCAINE (test code = [...] code = [place]) NEGATIVE <300 ng/mL PROTHROMBIN [id number] 14:52:00* Test Item Value Reference Range Interpretation [...] (2.5-3.5) IS PATIENT ON ANTICOAGULANTS? NTHROMBOPLASTIN TIME [id number] 14:52:00* Test Item Value Reference Range Interpretation Comments THROMBOPLASTIN TIME PARTIAL (test code = PTT) 34.7 seconds 23.0-37. 0 N IS PATIENT ON ANTICOAGULANTS? NDRUGS OF ABUSE SCREEN [id number] 14:40:00* Test Item Value Reference Range Interpretation [...] 84-246 N ADD ON- CT ABD PELVIS W/[id number] 10:38:00 Name: DEANDRE PHILIP [facility] : 1985 Age/S: 34 / M [address] [facility] #: [id number] Loc: [place] [address] Phys: aPpa Roberts MD Acct: [id number] Dis Date: Status: REG ER PHONE #: [phone] Exam Date: 06/12/2019 0941 FAX #: [phone] Reason: RUQ abdominal pain EXAMS: CPT CODE: [id number] CT ABD PELVIS W/CONT 26322 REASON FOR EXAM: RUQ abdominal pain EXAM [...] Signed Report ( CONTINUED) Name: DEANDRE PHILIP [facility] : 1985 Age/S: 34 / M [address] nit #: [id number] Loc: [place], [place] [address] Phys: Papa Roberts MD Acct: [id number] Dis Date: Status: REG ER PHONE #: [phone] Exam Date: 06/12/2019 0941 FAX #: [phone] Reason: RUQ abdominal pain EXAMS: CPT CODE: [id number] CT ABD PELVIS W/CONT 50408 <Continued> IMPRESSION: Findings suggest mild pancreatitis involving the head versus duodenitis involving the third and fourth segments of the duodenum. However no duodenal mass is seen and there is no evidence of pancreatic necrosis or fluid collection. Hepatomegaly with hepatic s teatosis. Location: [facility] at 1038 Reported and signed by: Jonathan Chandra MD CC: Papa Roberts MD Technologist:Kat Greene,RT(R),CT CTDI: DLP: Trnscb Date/Time: 06/12/2019 (1038) t.SDR.RR31 Orig Print D/T: S: 06/12/2019 (3604) PAGE 2 S igned Report BASIC METABOLIC [id number] 09:36:00* Test Item Value Reference Range Interpretation [...] CA) 9.0 mg/dL 8.5-10.1 N HEPATIC FUNCTION [id number] 09:36:00* Test Item Value Reference Range Interpretation [...] reference range due to change in reagent. [id number] 09:36:00* Test Item Value Reference Range Interpretation Comments LIPASE (test code = LIP) 4321 U/L 73.0-393.0 H [id number] 09:36:00* Test Item Value Reference Range Interpretation Comments TROPONIN-I (test code = TROPI) <0.015 ng/mL 0-0.045 N URINALYSIS [id number] 09:13:00* Test Item Value Reference Range Interpretation [...] #/LPF FEW Urine Source? Clean CatchBASIC METABOLIC [id number] 09:07:00* Test Item Value Reference Range Interpretation [...] CA) 9.0 mg/dL 8.5-10.1 N HEPATIC FUNCTION [id number] 09:07:00* Test Item Value Reference Range Interpretation [...] reference range due to change in reagent. [id number] 09:07:00* Test Item Value Reference Range Interpretation Comments LIPASE (test code = LIP) 4321 U/L 73.0-393.0 H [id number] 09:07:00* Test Item Value Reference Range Interpretation Comments TROPONIN-I (test code = TROPI) <0.015 ng/mL 0-0.045 N CBC W/O [id number] 08:50:00* Test Item Value Reference Range Interpretation [...] MPV) 10.2 fL 6.7-11.0 N CBC W/O [id number] 08:48:00* Test Item Value Reference Range Interpretation [...] VOLUME (test code = MPV) fL 6.7-11.0 [id number] 11:23:00* Test Item Value Reference Range Interpretation Comments GLUBED (test code = GLUBED) 174 mg/dL 74-106 H Performed by certified foam machine operator at [facility] [id number] 08:05:00* Test Item Value Reference Range Interpretation Comments GLUBED (test code = GLUBED) 123 mg/dL 74-106 H Performed by certified foam machine operator at [facility] BASIC METABOLIC [id number] 07:19:00* Test Item Value Reference Range Interpretation [...] code = CA) 9.0 mg/dL 8.5-10.1 N [id number] 07:19:00* Test Item Value Reference Range Interpretation Comments LIPASE (test code = LIP) 174 U/L 73.0-393.0 N CBC W/AUTO [id number] 06:35:00* Test Item Value Reference Range Interpretation [...] DIFF REQUIRED (test code = MDIFF) NO [id number] 20:15:00* Test Item Value Reference Range Interpretation Comments GLUBED (test code = GLUBED) 193 mg/dL 74-106 H Performed by certified foam machine operator at [facility] [id number] 16:09:00* Test Item Value Reference Range Interpretation Comments GLUBED (test code = GLUBED) 149 mg/dL 74-106 H Performed by certified foam machine operator at [facility] - US ABDOMEN [id number] 14:18:00 Name: DEANDRE PHILIP [facility] : 1985 Age/S: 34 / M [address] Unit #: [id number] Loc: [place] [address] Phys: Nehemiah Alba NP Acct: [id number] Dis Date: Status: ADM IN PHONE #: [phone] Exam Date: 04/12/2019 1408 FAX #: [phone] Reason: ABDOMINAL PAIN EXAMS: CPT CODE: [id number] US ABDOMEN LTD 05006 REASON FOR EXAM: ABDOMINAL PAIN EXAM ORDER DATE: 04/12/2019 9:52 AM Attending Britany: Nehemiah Alba NP PROCEDURE: - US ABDOMEN LTD Comparison: CT of the abdomen and pelvis the previous night FINDINGS/ IMPRESSION: Visualized portion of the pancreas appears to be within normal limits. Hepatic parenchyma is hyperechoic which likely represents steatosis. Location: [facility] at 1418 Reported and signed by: Jonathan Chandra MD CC: Nehemiah Alba FEATHER SEPARATOR; Matt Alexandre MD Technologist: ZEN MIRANDA RT(R),RDMS Trnscb Date/Time: 04/12/2019 (1418) t.SDR.RR31 Orig Print D/T: S: 04/12/2019 (1157) Probe: PAGE 1 Signed Report - US ABDOMEN [id number] 14:18:00 Name: DEANDRE PHILIP [facility] : 1985 Age/S: 34 / M [address] Unit #: [id number] Loc: [place] [address] Phys: AnjaliMichelle curran FEATHER SEPARATOR Acct: [id number] Di s Date: [id number] Status: DIS IN PHONE #: Exam Date: 04/12/2019 1408 FAX #: Reason: ABDOMINAL PAIN EXAMS: CPT CODE: [id number] US ABDOMEN LTD 43279 REASON FOR EXAM: ABDOMINAL PAIN EXAM ORDER [...] (1418) t.SDR.RR31 Orig Print D/T: S: 04/12/2019 (5114) Probe: PAGE 1 Signed Report [id number] 12:45:00* Test Item Value Reference Range Interpretation Comments LIPASE (test code = LIP) 352 U/L 73.0-393.0 N [id number] 11:36:00* Test Item Value Reference Range Interpretation Comments GLUBED (test code = GLUBED) 171 mg/dL 74-106 H Performed by certified foam machine operator at [facility] [id number] 10:38:00* Test Item Value Reference Range Interpretation [...] This LDL result is a direct measurement.========= [id number] 10:29:00* Test Item Value Reference Range Interpretation Comments ALCOHOL (test code = ALC) < 3 mg/dL 0.0-3.0 N -- INTERPRETIVE DATA NOTE: POSITIVE SCREENING RESULTS SHOULD BE CONSIDERED PRESUMPTIVE.WHEN COLLECTED FOR MEDICAL PURPOSES ONLY. SPECIMEN WILL NOTBE COLLECTED BY CHAIN OF CUSTODY.IF A CONFIRMATION OF POSITIVE RESULTS IS DESIRED, ACONFIRMATION TEST MUST BE REQUESTED BY THE PHYSICIAN AT ANADDITIONAL CHARGE TO THE PATIENT. [id number] 08:12:00* Test Item Value Reference Range Interpretation Comments GLUBED (test code = GLUBED) 140 mg/dL 74-106 H Performed by certified foam machine operator at [facility] COMPREHENSIVE METABOLIC [id number] 07:50:00* Test Item Value Reference Range Interpretation [...] reference range due to change in reagent. [id number] 07:50:00* Test Item Value Reference Range Interpretation Comments PHOSPHORUS (test code = PHOS) 3.8 mg/dL 2.5-4.9 N [id number] 07:50:00* Test Item Value Reference Range Interpretation Comments MAGNESIUM (test code = MAG) 2.0 mg/dL 1.8-2.4 N COMPREHENSIVE METABOLIC [id number] 07:07:00* Test Item Value Reference Range Interpretation [...] reference range due to change in reagent. [id number] 07:07:00* Test Item Value Reference Range Interpretation Comments PHOSPHORUS (test code = PHOS) 3.8 mg/dL 2.5-4.9 N [id number] 07:07:00* Test Item Value Reference Range Interpretation Comments MAGNESIUM (test code = MAG) 2.0 mg/dL 1.8-2.4 N LACTIC DEHYDROGENASE(LDH)2019-04-12 06:54:00* Test Item Value Reference Range Interpretation Comments LACTIC DEHYDROGENASE(LDH) (test code = LDH) 102 IUnit/L 84-246 N [id number] 04:40:00* Test Item Value Reference Range Interpretation Comments TROPONIN-I (test code = TROPI) <0.015 ng/mL 0-0.045 N DRUGS OF ABUSE SCREEN [id number] 02:03:00* Test Item Value Reference Range Interpretation [...] NEGATIVE <300 ng/mL DRUGS OF ABUSE SCREEN [id number] 01:33:00* Test Item Value Reference Range Interpretation [...] code = [place]) <300 ng/mL BASIC METABOLIC [id number] 00:47:00* Test Item Value Reference Range Interpretation [...] CA) 8.4 mg/dL 8.5-10.1 L HEPATIC FUNCTION [id number] 00:47:00* Test Item Value Reference Range Interpretation [...] reference range due to change in reagent. [id number] 00:47:00* Test Item Value Reference Range Interpretation Comments LIPASE (test code = LIP) 552 U/L 73.0-393.0 H [id number] 00:47:00* Test Item Value Reference Range Interpretation Comments TROPONIN-I (test code = TROPI) <0.015 ng/mL 0-0.045 N - CT ABD PELVIS [id number] 23:35:00 Name: DEANDRE PHILIP [facility] : 1985 Age/S: 34 / M [address] Unit #: [id number] Loc: [place] [address] Phys: Mj Borges FEATHER SEPARATOR Acct: [id number] Dis Date: Status: REG ER PHONE #: [phone] Exam Date: 04/11/2019 2310 FAX #: [phone] Reason: ABD PAIN EXAMS: CPT CODE: [id number] CT ABD PELVIS W/CONT 53617 CT ABDOMEN AND PELVIS ( with intravenous [...] 1 Signed Report (CONTINUED) Name: DEANDRE TRENT [facility] : 1985 A ge/S: 34 / M [address] Unit #: [id number] Loc : [place] [address] Phys: Mj Borges FEATHER SEPARATOR Acct: [id number] Dis Date: Status: REG ER PHONE #: [phone] Exam Date: 04/11/2019 2310 FAX #: [phone] Reason: ABD PAIN EXAMS: CPT CODE: [id number] CT ABD PELVIS W/CONT 55173 <Continued> at 2335 Reported and signed by: Greg Baez M.D. CC: Andres Blanco MD; Mj Borges NP Technologist:DEANDRA YA RT CTDI: DLP: Trnscb Date/Time: 04/11/2019 (2335) t.MARIBELR.RK5 Orig Print D/T: S: 04/11/2019 (5501) PAGE 2 Signed Report - CT ABD PELVIS W/[id number] 23:35:00 Name: DEANDRE PHILIP [facility] : 1985 Age/S: 34 / M [address] Unit #: [id number] Loc: [place] [address] Phys: Mj Borges FEATHER SEPARATOR Acct: [id number] Dis Date: 04/13/2019 Status: DIS IN PHONE #: [phone] Exam Date: 04/11/2019 2310 FAX #: [phone] Reason: ABD PAIN EXAMS: CPT CODE: [id number] CT ABD PELVIS W/CONT 81332 CT ABDOMEN AND PELVIS ( with intravenous [...] 1 Signed Report (CONTINUED) Name: DEANDRE PHILIP [facility] : 1985 Age/S: 34 / M [address] Unit #: [id number] Loc: [place] [address] Phys: Mj Borges NP Acct: [id number] Dis Date: 04/13/2019 Status: DIS IN PHONE #: [phone] Exam Date: 04/11/2019 2310 FAX #: [phone] Reason: ABD PAIN EXAMS: CPT CODE: [id number] CT ABD PELVIS W/CONT 86510 <Continued> at 2335 Reported and signed by: Greg Baez M.D. CC: Andres Blanco MD; Mj Borges NP Technologist:DEANDRA YA RT CTDI: DLP: Trnscb Date/Time: 04/11/2019 (0023) ColetteR.RK5 Orig Print D/T: S: 04/11/2019 (3976) PAGE 2 Signed Report BASIC METABOLIC [id number] 23:12:00* Test Item Value Reference Range Interpretation [...] CA) 8.4 mg/dL 8.5-10.1 L HEPATIC FUNCTION [id number] 23:12:00* Test Item Value Reference Range Interpretation [...] reference range due to change in reagent. [id number] 23:12:00* Test Item Value Reference Range Interpretation Comments LIPASE (test code = LIP) 552 U/L 73.0-393.0 H [id number] 23:12:00* Test Item Value Reference Range Interpretation Comments TROPONIN-I (test code = TROPI) <0.015 ng/mL 0-0.045 N BASIC METABOLIC [id number] 22:55:00* Test Item Value Reference Range Interpretation [...] code = CA) mg/dL 8.5-10.1 HEPATIC FUNCTION [id number] 22:55:00* Test Item Value Reference Range Interpretation [...] TOTAL (test code = ALKP) IUnit/L 45-117 [id number] 22:55:00* Test Item Value Reference Range Interpretation Comments LIPASE (test code = LIP) U/L 73.0-393.0 [id number] 22:55:00* Test Item Value Reference Range Interpretation Comments TROPONIN-I (test code = TROPI) ng/mL 0-0.045 URINALYSIS [id number] 22:51:00* Test Item Value Reference Range Interpretation [...] #/LPF FEW Urine Source? Clean CatchCBC W/O [id number] 22:37:00* Test Item Value Reference Range Interpretation [...] MPV) 10.2 fL 6.7-11.0 N CBC W/O [id number] 22:36:00* Test Item Value Reference Range Interpretation [...] VOLUME (test code = MPV) fL 6.7-11.0 [id number] 08:04:00* Test Item Value Reference Range Interpretation Comments GLUBED (test code = GLUBED) 137 mg/dL 74-106 H Performed by certified foam machine operator at [facility] BASIC METABOLIC [id number] 05:15:00* Test Item Value Reference Range Interpretation [...] CA) 9.2 mg/dL 8.5-10.1 N BASIC METABOLIC [id number] 05:10:00* Test Item Value Reference Range Interpretation [...] code = CA) mg/dL 8.5-10.1 CBC W/AUTO [id number] 04:49:00* Test Item Value Reference Range Interpretation [...] code = NRBC#) 0.00 K/mm3 0.0-0.1 N [id number] 21:26:00* Test Item Value Reference Range Interpretation Comments GLUBED (test code = GLUBED) 242 mg/dL 74-106 H Performed by certified foam machine operator at [facility] [id number] 16:25:00* Test Item Value Reference Range Interpretation Comments GLUBED (test code = GLUBED) 184 mg/dL 74-106 H Performed by certified foam machine operator at [facility] [id number] 11:17:00* Test Item Value Reference Range Interpretation Comments GLUBED (test code = GLUBED) 223 mg/dL 74-106 H Performed by certified foam machine operator at [facility] [id number] 07:51:00* Test Item Value Reference Range Interpretation Comments GLUBED (test code = GLUBED) 229 mg/dL 74-106 H Performed by certified foam machine operator at [facility] [id number] 21:05:00* Test Item Value Reference Range Interpretation Comments GLUBED (test code = GLUBED) 156 mg/dL 74-106 H Performed by certified foam machine operator at [facility] [id number] 18:34:00* Test Item Value Reference Range Interpretation Comments GLUBED (test code = GLUBED) 199 mg/dL 74-106 H Performed by certified foam machine operator at [facility] [id number] 18:34:00* Test Item Value Reference Range Interpretation Comments GLUBED (test code = GLUBED) 213 mg/dL 74-106 H Performed by certified foam machine operator at [facility] [id number] 08:41:00* Test Item Value Reference Range Interpretation Comments GLUBED (test code = GLUBED) 128 mg/dL 74-106 H Performed by certified foam machine operator at [facility] [id number] 21:11:00* Test Item Value Reference Range Interpretation Comments GLUBED (test code = GLUBED) 245 mg/dL 74-106 H Performed by certified foam machine operator at [facility] [id number] 16:43:00* Test Item Value Reference Range Interpretation Comments GLUBED (test code = GLUBED) 179 mg/dL 74-106 H Performed by certified foam machine operator at [facility] [id number] 12:19:00* Test Item Value Reference Range Interpretation Comments GLUBED (test code = GLUBED) 147 mg/dL 74-106 H [facility] certified foam machine [facility] [id number] 08:25:00* Test Item Value Reference Range Interpretation Comments GLUBED (test code = GLUBED) 138 mg/dL 74-106 H [facility] certified foam machine operator [facility] ACUTE HEPATITIS [id number] 08:10:00* Test Item Value Reference Range Interpretation [...] with a HCV Nucleic Acid Amplification test (634163).Performed At: [facility] [address] [id number] Jadon Carvalho MD Ph:[phone] [id number] 20:11:00* Test Item Value Reference Range Interpretation Comments GLUBED (test code = GLUBED) 216 mg/dL 74-106 H [facility] certified foam machine operator [facility] [id number] 16:53:00* Test Item Value Reference Range Interpretation Comments GLUBED (test code = GLUBED) 142 mg/dL 74-106 H [facility] certified foam machine [facility] [id number] 12:02:00* Test Item Value Reference Range Interpretation Comments GLUBED (test code = GLUBED) 210 mg/dL 74-106 H Performed by certified foam machine operator at [facility] - US ABDOMEN [id number] 10:41:00 Name: DEANDRE PHILIP [facility] : 1985 Age/S: 34 / M [address] Unit #: [id number] Loc: [place] [address] Phys: Ana Pearl MD Acct: [id number] Dis Date: Status: ADM IN PHONE #: [phone] Exam Date: 03/07/2019 1038 FAX #: [phone] Reason: cirrhosis? EXAMS: CPT CODE: [id number] US ABDOMEN LTD [address]809 REASON FOR EXAM: cirrhosis? EXAM ORDER DATE: 03/07/2019 8:56 AM Attending Britany: Ana Pearl MD PROCEDURE: - US ABDOMEN [...] 1 Signed Report (CONTINUED) Name: DEANDRE PHILIP [facility] : 1985 Age/S: 34 / M [address] Unit #: [id number] Loc: [place] [address] Phys: Ana Pearl MD Acct: [id number] Dis Date: Status: ADM IN PHONE #: [phone] Exam Date: 03/07/2019 1036 FAX #: [phone] Reason: cirrhosis? EXAMS: CPT CODE: [id number] ABDOMEN LTD [address]7634 <Continued> IMPRESSION: Hepatomegaly with hepatic steatosis. Prior cholecystectomy. Location: [facility] Electronically Si gned by Jonathan Chandra MD on 03/07/2019 at 1041 Reported an d signed by: Jonathan Chandra MD CC: Shayy Chamberlain MD; Ana Pearl MD Technologist: DONNA LUONG RT(R), SHAN Trnhib Date/Time: 03/07/2019 (1041) t.MARIBELR.RR31 Orig Print D/T: S: 03/07/2019 (1044) Probe: PAGE 2 Signed Report HEPATIC FUNCTION [id number] 09:37:00* Test Item Value Reference Range Interpretation [...] reference range due to change in reagent. [id number] 08:23:00* Test Item Value Reference Range Interpretation Comments GLUBED (test code = GLUBED) 105 mg/dL 74-106 N Performed by certified foam machine operator at [facility] BASIC METABOLIC [id number] 05:51:00* Test Item Value Reference Range Interpretation [...] CA) 8.9 mg/dL 8.5-10.1 N BASIC METABOLIC [id number] 05:42:00* Test Item Value Reference Range Interpretation [...] code = CA) mg/dL 8.5-10.1 CBC W/AUTO [id number] 05:37:00* Test Item Value Reference Range Interpretation [...] code = NRBC#) 0.00 K/mm3 0.0-0.1 N [id number] 16:28:00* Test Item Value Reference Range Interpretation Comments GLUBED (test code = GLUBED) 184 mg/dL 74-106 H Performed by certified foam machine operator at [facility] [id number] 12:36:00* Test Item Value Reference Range Interpretation Comments GLUBED (test code = GLUBED) 261 mg/dL 74-106 H Performed by certified foam machine operator at [facility] [id number] 07:26:00* Test Item Value Reference Range Interpretation Comments GLUBED (test code = GLUBED) 194 mg/dL 74-106 H Performed by certified foam machine operator at [facility] [id number] 20:23:00* Test Item Value Reference Range Interpretation Comments GLUBED (test code = GLUBED) 266 mg/dL 74-106 H Performed by certified foam machine operator at [facility] [id number] 16:23:00* Test Item Value Reference Range Interpretation Comments GLUBED (test code = GLUBED) 292 mg/dL 74-106 H Performed by certified foam machine operator at [facility] [id number] 16:23:00* Test Item Value Reference Range Interpretation Comments GLUBED (test code = GLUBED) 302 mg/dL 74-106 H Performed by certified foam machine operator at [facility] [id number] 11:24:00* Test Item Value Reference Range Interpretation Comments GLUBED (test code = GLUBED) 218 mg/dL 74-106 H Performed by certified foam machine operator at [facility] [id number] 07:51:00* Test Item Value Reference Range Interpretation Comments GLUBED (test code = GLUBED) 158 mg/dL 74-106 H Performed by certified foam machine operator at [facility] BASIC METABOLIC [id number] 06:00:00* Test Item Value Reference Range Interpretation [...] CA) 8.9 mg/dL 8.5-10.1 N BASIC METABOLIC [id number] 05:54:00* Test Item Value Reference Range Interpretation [...] code = CA) mg/dL 8.5-10.1 CBC W/AUTO [id number] 05:33:00* Test Item Value Reference Range Interpretation [...] code = NRBC#) 0.00 K/mm3 0.0-0.1 N [id number] 21:10:00* Test Item Value Reference Range Interpretation Comments GLUBED (test code = GLUBED) 283 mg/dL 74-106 H Performed by certified foam machine operator at [facility] [id number] 16:52:00* Test Item Value Reference Range Interpretation Comments GLUBED (test code = GLUBED) 197 mg/dL 74-106 H Performed by certified foam machine operator at [facility] [id number] 11:42:00* Test Item Value Reference Range Interpretation Comments GLUBED (test code = GLUBED) 187 mg/dL 74-106 H Performed by certified foam machine operator at [facility] [id number] 08:01:00* Test Item Value Reference Range Interpretation Comments GLUBED (test code = GLUBED) 88 mg/dL 74-106 N Performed by certified foam machine operator at [facility] [id number] 20:51:00* Test Item Value Reference Range Interpretation Comments GLUBED (test code = GLUBED) 267 mg/dL 74-106 H Performed by certified foam machine operator at [facility] [id number] 16:28:00* Test Item Value Reference Range Interpretation Comments GLUBED (test code = GLUBED) 234 mg/dL 74-106 H Performed by certified foam machine operator at [facility] [id number] 11:54:00* Test Item Value Reference Range Interpretation Comments GLUBED (test code = GLUBED) 157 mg/dL 74-106 H Performed by certified foam machine operator at [facility] [id number] 08:23:00* Test Item Value Reference Range Interpretation Comments GLUBED (test code = GLUBED) 144 mg/dL 74-106 H Performed by certified foam machine operator at [facility] BASIC METABOLIC [id number] 06:18:00* Test Item Value Reference Range Interpretation [...] CA) 8.2 mg/dL 8.5-10.1 L CBC W/AUTO [id number] 06:13:00* Test Item Value Reference Range Interpretation [...] (test code = MDIFF) NO BASIC METABOLIC [id number] 06:13:00* Test Item Value Reference Range Interpretation [...] CALCIUM (test code = CA) mg/dL 8.5-10.1 [id number] 20:14:00* Test Item Value Reference Range Interpretation Comments GLUBED (test code = GLUBED) 182 mg/dL 74-106 H Performed by certified foam machine operator at [facility] [id number] 15:59:00* Test Item Value Reference Range Interpretation Comments GLUBED (test code = GLUBED) 223 mg/dL 74-106 H Performed by certified foam machine operator at [facility] [id number] 11:35:00* Test Item Value Reference Range Interpretation Comments GLUBED (test code = GLUBED) 164 mg/dL 74-106 H Performed by certified foam machine operator at [facility] [id number] 07:50:00* Test Item Value Reference Range Interpretation Comments GLUBED (test code = GLUBED) 113 mg/dL 74-106 H Performed by certified foam machine operator at [facility] BASIC METABOLIC [id number] 05:33:00* Test Item Value Reference Range Interpretation [...] CA) 9.0 mg/dL 8.5-10.1 N CBC W/AUTO [id number] 05:29:00* Test Item Value Reference Range Interpretation [...] code = NRBC#) 0.00 K/mm3 0.0-0.1 N [id number] 20:55:00* Test Item Value Reference Range Interpretation Comments GLUBED (test code = GLUBED) 187 mg/dL 74-106 H Performed by certified foam machine operator at [facility] [id number] 16:24:00* Test Item Value Reference Range Interpretation Comments GLUBED (test code = GLUBED) 274 mg/dL 74-106 H [facility] certified foam machine [facility]~ - DUP AB/PEL/SC [id number] 09:07:00 Name: DEANDRE PHILIP [facility] : 1985 Age/S: 34 / M [address] Unit #: [id number] [place] [address] Phys: Cheryl Lawton FEATHER SEPARATOR Acct: [id number] Dis Date: Status: REG ER PHONE #: [phone] Exam Date: 03/01/2019 0840 FAX #: [phone] Reason: SCROTAL PAIN EXAMS: CPT CODE: [id number] DUP AB/PEL/SC COMP 14868 HISTORY: Testicular pain. COMPARISON: None available. Bilateral testicular ultrasound with color and Doppler flow and grayscale imaging. Location: [facility]. Low-resistance arterial Doppler flow with normal spectral [...] 1 Signed Report (CONTINUED) Name: [facility] 1985 Age/S: 34 / M [address] Unit #: [id number] Loc: [place] [address] Phys: Cheryl Lawton NP Acct: [id number] Dis Date: Status: REG ER PHONE #: [phone] Exam Date: 03/01/2019 0840 FAX #: [phone] Reason: SCROTAL PAIN EXAMS: CPT CODE: [id number] DUP AB/PEL/SC COMP 71379 <Continued> CC: Cheryl Lawton NP Technologist: ZEN MIRANDA RT(R),RDMS Trnhib Date/Time: 03/01/2019 (906) t.SDR.TH4 Orig Print D/T: S: 03/01/2019 (0911) Probe: PAGE 2 Signed Report - US SCROTUM AND [id number] 09:07:00 Name: DEANDRE PHILIP [facility] : 1985 Age/S: 34 / M [address] Unit #: [id number] Loc: [place] [address] Phys: Kely Lawton FEATHER SEPARATOR Acct: [id number] Di s Date: Status: REG ER PHONE #: Exam Date: 03/01/2019 0840 FAX #: [phone] Reason: SCROTAL PAIN EXAMS: CPT CODE: [id number] US SCROTUM AND CNTS 30233 HISTORY: Testicular pain. COMPARISON: None available. Bilateral [...] Signed Report (CONTINUED) N jesenia: DEANDRE PHILIP [facility] : 0 1985 Age/S: 34 / M [address] [facility] Unit #: [id number] [place]: [place] [address] Phys: Cheryl Lawton FEATHER SEPARATOR Acct: [id number] Dis D ate: Status: REG ER PHONE #: Exam Date: 03/01/2019 0840 FAX #: [phone] Reason: SCROTAL PAIN EXAMS: CPT CODE: [id number] US SCROTUM AND C NTS 21656 <Continued> CC: Cheryl Lawton FEATHER SEPARATOR Technologist: ZEN MIRANDA RT(R),RDMS Trnscb Date/Time: 03/01/2019 (906) [email or web address] Orig Print D/T: S: 03/01/2019 (910) Probe: PAGE 2 Signed Report BASIC METABOLIC [id number] 09:02:00* Test Item Value Reference Range Interpretation [...] CA) 9.2 mg/dL 8.5-10.1 N HEPATIC FUNCTION [id number] 09:02:00* Test Item Value Reference Range Interpretation [...] range due to change in reagent. URINALYSIS [id number] 08:57:00* Test Item Value Reference Range Interpretation [...] #/LPF FEW Urine Source? Clean CatchBASIC METABOLIC [id number] 08:54:00* Test Item Value Reference Range Interpretation [...] code = CA) mg/dL 8.5-10.1 HEPATIC FUNCTION [id number] 08:54:00* Test Item Value Reference Range Interpretation [...] (test code = ALKP) IUnit/L 45-117 URINALYSIS [id number] 08:44:00* Test Item Value Reference Range Interpretation [...] HPF NONE Urine Source? Clean CatchCBC W/O [id number] 08:44:00* Test Item Value Reference Range Interpretation [...] code = MPV) 10.5 fL 6.7-11.0 N [id number] 11:32:00* Test Item Value Reference Range Interpretation Comments GLUBED (test code = GLUBED) 118 mg/dL 74-106 H Performed by certified foam machine operator at [facility] [id number] 08:55:00* Test Item Value Reference Range Interpretation Comments GLUBED (test code = GLUBED) 103 mg/dL 74-106 N Performed by certified foam machine operator at [facility] [id number] 02:57:00* Test Item Value Reference Range Interpretation Comments LIPASE (test code = LIP) 251 U/L 73.0-393.0 N [id number] 21:04:00* Test Item Value Reference Range Interpretation Comments GLUBED (test code = GLUBED) 163 mg/dL 74-106 H Performed by certified foam machine operator at [facility] [id number] 16:08:00* Test Item Value Reference Range Interpretation Comments GLUBED (test code = GLUBED) 124 mg/dL 74-106 H Performed by certified foam machine operator at [facility] [id number] 11:39:00* Test Item Value Reference Range Interpretation Comments GLUBED (test code = GLUBED) 113 mg/dL 74-106 H Performed by certified foam machine operator at [facility] [id number] 09:57:00* Test Item Value Reference Range Interpretation Comments LIPASE (test code = LIP) 522 U/L 73.0-393.0 H [id number] 07:58:00* Test Item Value Reference Range Interpretation Comments GLUBED (test code = GLUBED) 128 mg/dL 74-106 H Performed by certified foam machine operator at [facility] CBC W/AUTO [id number] 03:29:00* Test Item Value Reference Range Interpretation [...] (test code = MDIFF) NO COMPREHENSIVE METABOLIC [id number] 03:13:00* Test Item Value Reference Range Interpretation [...] due to change in reagent. COMPREHENSIVE METABOLIC [id number] 03:07:00* Test Item Value Reference Range Interpretation [...] TOTAL (test code = ALKP) IUnit/L 45-117 [id number] 20:17:00* Test Item Value Reference Range Interpretation Comments GLUBED (test code = GLUBED) 126 mg/dL 74-106 H Performed by certified foam machine operator at [facility] [id number] 17:47:00* Test Item Value Reference Range Interpretation Comments GLUBED (test code = GLUBED) 129 mg/dL 74-106 H Performed by certified foam machine operator at [facility] LIPID PROFILE (CORONARY RISK)2018-10-17 13:02:00* Test Item [...] LDL result is a direct measurement.========= LACTIC [id number] 12:56:00* Test Item Value Reference Range Interpretation Comments LACTIC ACID (test code = LACT) 1.2 mmol/L 0.4-1.9 N [id number] 12:06:00* Test Item Value Reference Range Interpretation Comments GLUBED (test code = GLUBED) 115 mg/dL 74-106 H Performed by certified foam machine operator at [facility] [id number] 11:09:00* Test Item Value Reference Range Interpretation Comments LIPASE (test code = LIP) 727 U/L 73.0-393.0 H [id number] 11:07:00* Test Item Value Reference Range Interpretation Comments GLYCOSYLATED HEMOGLOBIN (HA1C) (test code = GLYHGB) 7.8 % HbA1 4. 8-6.0 H ESTIMATED AVERAGE GLUCOSE (test code = EAG) 177 MG/DL LACTIC [id number] 08:57:00* Test Item Value Reference Range Interpretation Comments LACTIC ACID (test code = LACT) 1.1 mmol/L 0.4-1.9 N [id number] 08:02:00* Test Item Value Reference Range Interpretation Comments GLUBED (test code = GLUBED) 149 mg/dL 74-106 H Performed by certified foam machine operator at [facility] - CT ABD PELVIS [id number] 05:22:00 Name: DEANDRE PHILIP [facility] : 1985 Age/S: 33 / M [address] [facility] Unit #: [id number] Loc: [place] [address] Phys: Cheryl Lawton FEATHER SEPARATOR Acct: [id number] Dis Date: Status: REG ER PHONE #: [phone] Exam Date: 10/17/2018 0500 FAX #: [phone] Reason: abdominal pain EXAMS: CPT CODE: [id number] CT ABD PELVIS W/CONT 23884 CT abdomen and pelvis with IV contrast. [...] Signed Rep ort (CONTINUED) Name: DEANDRE PHILIP [facility] : 1985 Age/S: 33 / M [address] [facility] Unit #: [id number] Loc: [place] [address] Phys: Cheryl Lawton NP Acct: [id number] Dis Date: Status: REG ER PHONE #: [phone] Exam Date: 10/17/2018 0500 FAX #: [phone] Reason: abdominal pain EXAMS: CPT CODE: [id number] CT ABD PELVIS W/CONT 76984 <Continued> at 0522 Reported and signed by: Sandee Fowler M.D. CC: Vivienne Madison MD; Cheryl Lawton NP Technologist:RT MERVIN CTDI: DLP: Trnscb Date/Time: 10/17/2018 (05) [email or web address] Orig Print D/T: S: 10/17/2018 (0563) PAGE 2 Signed Report [id number] 05:06:00* Test Item Value Reference Range Interpretation Comments TROPONIN-I (test code = TROPI) <0.015 ng/mL 0-0.045 N LACTIC [id number] 04:48:00* Test Item Value Reference Range Interpretation Comments LACTIC ACID (test code = LACT) 1.0 mmol/L 0.4-1.9 N URINALYSIS [id number] 04:46:00* Test Item Value Reference Range Interpretation [...] FEW #/LPF FEW Urine Source? Clean CatchURINALYSIS [id number] 04:45:00* Test Item Value Reference Range Interpretation [...] HPF NONE Urine Source? Clean CatchBASIC METABOLIC [id number] 04:45:00* Test Item Value Reference Range Interpretation [...] CA) 9.4 mg/dL 8.5-10.1 N HEPATIC FUNCTION [id number] 04:45:00* Test Item Value Reference Range Interpretation [...] reference range due to change in reagent. [id number] 04:45:00* Test Item Value Reference Range Interpretation Comments LIPASE (test code = LIP) 834 U/L 73.0-393.0 H BASIC METABOLIC [id number] 04:38:00* Test Item Value Reference Range Interpretation [...] code = CA) mg/dL 8.5-10.1 HEPATIC FUNCTION [id number] 04:38:00* Test Item Value Reference Range Interpretation [...] TOTAL (test code = ALKP) IUnit/L 45-117 [id number] 04:38:00* Test Item Value Reference Range Interpretation Comments LIPASE (test code = LIP) U/L 73.0-393.0 CBC W/O [id number] 04:22:00* Test Item Value Reference Range Interpretation [...] MPV) 9.6 fL 6.7-11.0 N CBC W/O [id number] 04:20:00* Test Item Value Reference Range Interpretation [...] MPV) fL 6.7-11.0 - XR CHEST 1 [id number] 04:09:00 FAX: Cheryl Lawton NP [place]: St: REG Name: DEANDRE SMITH [facility] : [birth year] Age/S: 33/M [address] [facility] Unit #: [id number] Loc: [place] [address] Phys: Cheryl Lawton NP Acct: [id number] Dis Date: Status: REG ER PHONE #: [phone] Exam Date: 10/17/2018 0355 FAX #: [phone] Reason: ABDOMINAL PAIN EXAMS: CPT CODE: [id number] XR CHEST 1 V 27799 Location: T 18 CHEST X- RAY: AP [...] CC: Cheryl Lawton NP Technologist: Scarlet Bell Trnjasperrd Komal ate/Time/By: 10/17/2018 (0409) : By: [email or web address] Orig Print D/T: S: 04/2018 (6337) PAGE 1 Signed Repor t POC LACTIC [id number] 04:03:00* Test Item Value Reference Range Interpretation Comments POC LACTIC ACID (test code = POCLAC) 2.37 MMOL/L 0.4-2.2 H Lipid [id number] 07:21:00* Test Item Value Reference Range Interpretation Comments Cholesterol (test code = 2093-3) 244.0 mg/dL <=200.0 H Desirable: < 200.0 mg/dLBorderline: 200 - 240 mg/dLHigh Risk: > 240 mg/dL Triglyceride (test code = 17439966) 990 mg/dL <150 H Normal: < 150.0 mg/dL Borderline: 150-199 mg/dL High: 200-499 mg/dL Very High: >= 500 mg/dL HDL (test code = 2085-9) 31.0 mg/dL See Reference Range Narrative . Increased CHD Risk: < 40.0 mg/dL Decreased CHD Risk: > 60 mg/dL LDL (test code = 82219-1) <100 mg/dL Tr iglyceride value is > 400 mg/dl. Unable to calculate LDL value due to high triglyceride. Lab Interpretation (test code = 76116-0) [facility] [id number] 07:21:00* Test Item Value Reference Range Interpretation Comments Sodium (test code = 2951-2) 138 mmol/L 136-145 Potassium (test code = 2823-3) 4.8 mmol/L 3.5-5.1 Chloride (test code = 2075-0) 103 mmol/L 98-107 CO2 (test code = 86450157) 26 mmol/L 21-31 Glucose (test code = 02536441) 148 mg/dL 70-110 H Calcium (test code = 25816377) 9.4 mg/dL 8.6-10.3 Urea Nitrogen (test code = 50952701) 15.0 mg/dL 7-25 Creatinine (test code = 13432778) 0.9 mg/dL 0.7-1.3 Alkaline Phosphatase (test code = 29279926) 77 U/L 34-104 ALT (test code = 44991215) 79 U/L 7-52 H AST (test code = 53682590) 37 U/L 13-39 Total Protein (test code = 2885-2) 6.8 g/dL 6-8.3 GFR, Estimated (test code = 74365238) >90 >=90 mL/min/1.73 m2 Albumin (test code = 36129-3) 4.5 g/dL 4.2-5.5 Anion Gap (test code = 67089619) 9 mmol/L 5-16 Lab Interpretation (test code = 14927-0) Abnormal [facility] [id number] 15:50:00* Test Item Value Reference Range Interpretation Comments Hemoglobin A1c (test code = 4548-4) 7.6 % 4.3-6.1 H Estimated Average Glucose (test code = 12190400) 171 mg/dL 70-11 0 H Lab Interpretation (test code = 11084-2) Abnormal [facility]RAY ELBOW 3 VIEWS [id number] 13:59:54IMPRESSION: Scattered degenerative change. No osseous erosion Dictated By: Asael Tinoco MD, 09/13/2018 1:58 PM I have reviewed [...] Scattered degenerative change. No osseous erosionDictated By: sAael Tinoco MD, 09/13 1:58 PMI have reviewed the study and agree with the findings in this repor t.Signed By: Buddy Davies MD, 09/13/2018 1:59 PMDeale HealthOPHTHALMOLOGY RETINAL [id number] 12:04:34* Test Item Value Reference Range Interpretation Comments RETINAL SCAN-FINAL RESULT (test code = 98274) NORMAL Right Diabetic Retinopathy (test code = 501278) None Right Macular Edema (test code = 96418) None Right Other Suspected Conditions (test code = 06012) None Right Image Quality (test code = 34478) Gradeable Image Left Diabetic Retinopathy (test code = 59590) None Left Macular Edema (test code = 33837) None Left Other Suspected Conditions (test code = 04043) None Left Image Quality (test code = 88749) Gradeable Image VIDA (test code = VIDA) Retinal Study Result for DEANDRE ROMANO JOEL, a 33 y/o, M (: 1985, )presented to [facility] on 09-13-2018 for a retinal imaging study [...] signed by Trev Coreas MD, , Taxonomy: [id number] on 09-13-2018 05:04:34 [facility] time. NOTE: Any pathology noted on this diabetic retinal evaluation should be confirmed by an appropriate ophthalmic examination. [facility]
--- OUTSIDE RECORDS SUMMARY | 2019-09-14 18:56 | XMS REPORT | Clinical Summary ---
Author Author [facility] Organization [facility] ict Address Unknown Phone Unavailable Care Team Providers Care Geriatric Case Manager Name Role Phone Trung Bradshaw MD PCP [...] Care Team Description Date Type Specialty Doctor, [facility] 07/16/2019 E-Visit Trung Bradshaw MD Rash [...] Performing Organization Address [facility] one Number [facility] * Hemoglobin A1C (09/13/2018 11:59 AM CDT) Hemoglobin A1c 7.6 (H) 4.3 - 6.1 % [facility] Estimated 171 (H) 70 - 110 mg/dL [facility] Average Glucose [facility]ORATORY Specimen Blood Performing Organization Address [facility] Ph one Number [facility] [address] [place] [address] * Comprehensive Metabolic Panel (09/13/2018 11:59 AM [...] Performing Organization Address [facility] one Number [facility] [address] [place], [place] [id number] * Lipid Profile (09/13/2018 11:59 AM CDT) Pathologist [facility] Cholesterol 244.0 (H) <=200.0 mg/dL [facility] Comment: LABORATORY Desirable: < 200.0 mg/dL Borderline: 200 - 240 mg/dL High Risk: > 240 mg/dL Triglyceride 990 (H) <150 mg/dL [facility] Comment: LAB[facility] Normal: < 150.0 mg/dL Borderline: 150-199 mg/dL High: 200-499 mg/dL Very High: >= 500 mg/dL HDL 31.0 See Reference Range [facility] Comment: Narrative. mg/dL LABORATORY Increased CHD Risk: < 40.0 mg/dL Decreased CHD Risk: > 60 mg/dL LDL Comment: Triglyceride value is <100 mg/dL [facility] > 400 mg/dl. Unable to LABORATORY calculate LDL value due to high triglyceride. Specimen Blood Performing Organization Address [facility] one Number [facility] [address] [place], [place] [id number] * OPHTHALMOLOGY RETINAL SCAN (09/13/2018 11:54 AM CDT) Pathologist [facility] RETINAL NORMAL IRIS SCAN-FINAL RESULT Right Diabetic None [facility] Retinopathy Right Macular None [facility]IS Edema Right Other None [facility] Suspected Conditions Right Image Gradeable Image [facility] Quality Left Diabetic None [facility] Retinopathy Left Macular None [facility] Edema Left Other None [facility] Suspected Conditions Left Image Gradeable Image IRIS Quality Specimen Narrative Performed At Retinal Study Result for DEANDRE PHILPI JOEL, a 33 y/o, M (: 1985, ) presented to [facility] on 09-13-2018 for a retinal imaging study [...] electronically signed Trev Golden MD, , Taxonomy: [id number] on 09-13-2018 05:0 4:34 [facility] time. NOTE: Any pathology noted on this jerzy betic retinal evaluation should be confirmed by an appropriate ophthalmic examination. Performing Organization Address City/State/[facility] Ph one Number IRIS after 09/09/2018 Insurance Type Payer Benefit Subscriber ID Effective Phone Address Plan / Dates Group [facility] xxxxxxx 2019- [address] INDIGENT FAMILY 2020 [facility][note 3] PLANN[place], [place] [address] [facility] PLAN FINANCIAL xxxxxxx 2019- [phone] [address] [place] [address] [facility] PL[facility] FINANCIAL xxxxxxxx 2019- [phone] [address] [place] [address]
--- OUTSIDE RECORDS SUMMARY | 2019-09-14 18:57 | XMS REPORT | Continuity of Care Document ---
Author Author [facility] t Organization [facility] Address [address] [place] [address] Phone Unavailable Care Team Providers Care Wood Grainer Name Role Phone NO, PCP PCP Unavailable JEFERSON KELLOGG Attphys Unavailable Reina BECKWITH LAIMODESTO Attphys Unavailable Doctor, [employer] Attphys Unavailable Leeann PEREZ P [facility] Attphys Payers Payer Name Policy Type Policy Number Effective Date Expiration Date S saqib [facility] [place] [facility] [id number], [place] [address] xxxxxxx 2019 00:00:00 2020 23:59:59 H [facility] PLANFINANCIAL ASSISTANCE PROGRAMxxx [id number] [place] [address] xxxxxxx 2019 00:00:00 03-12 23:59:59 [facility] Problems Condition Name Condition Details Condition Category Status Onset Date Resolution Date Last Treatment Date Treating Clinician Comments Source Essential hypertension Essential hypertension Disease Active 2017-11-10 00:00:00 [facility] Alcohol-induced acute pancreatitis Problem Active [facility] Pancreatitis Problem Active [facility] High anion gap metabolic acidosis Problem Active [facility] Hypertriglyceridemia Problem Active [facility] Allergies, Adverse Reactions, Alerts Allergy Name Allergy Type Status Severity Reaction(s) Onset Date Inacti ve Date Treating Clinician Comments Source No Known Allergies DA Active U 2019-04-11 00:00:00 [facility] No Known Allergies DA Active U 2019-03-01 00:00:00 [facility] No Known Allergies DA Active U 2016-03-13 00:00:00 [facility] Social History Social Habit Start Date Stop Date Quantity Comments Source Sex Assigned At [facility] Alcohol intake 2018-07-26 00:00:00 2018-07-26 00:00:00 Current drinker of alcohol (finding) [facility] SDOH Food Worry 2017-11-10 00:00:00 2017-11-10 00:00:00 1 [facility] Food Scarcity 2017-11-10 00:00:00 2017-11-10 00:00:00 1 [facility] Alcohol Comment 2017-11-10 00:00:00 2017-11-10 00:00:00 vodka [facility] Smoking Status Start Date Stop Date Source Current every day smoker 2018-07-26 00:00:00 [facility] Medications Ordered Medication Name Filled Medication Name Start Date Stop Da te Current Medication? Ordering Clinician Indication Dosage Frequency Signature (SIG) Comments Components Source Acetaminophen/Codeine Phosphate (Tylenol # 3*) 1 Ea TA B Acetaminophen/Codeine Phosphate (Tylenol # 3*) 1 Ea TAB 2019-07-26 15:25:00 Yes 1 Every 6 Hours as needed for Moderate Pain (4-6) [facility] Amlodipine Besylate (Norvasc) 5 Mg TAB Amlodipine Besylate ( Norvasc) 5 Mg TAB 2019-07-26 15:25:00 Yes 5 Daily [facility] Gemfibrozil Gemfibrozil 2019-07-26 15:25:00 Yes 6 00 Twice Daily Before Meals [facility] Glipizide Glipizide 2019-07-26 15:25:00 Yes 5 Twice A Day [facility] atorvastatin (LIPITOR) 20 mg tablet 2018-09-13 00:00:0 0 2019-06-14 00:00:00 No Hyperlipidemia, unspecified hyperlipidemia type 20mg Take 1 tablet by mouth at bedtime nightly. [facility] fenofibrate nanocrystallized (TRICOR) 145 mg tablet 2018-09-13 00:00:00 2019-06-14 00:00:00 No Hypertriglyceridemia 145mg QD Take 1 tablet by mouth daily. [facility] lisinopril (PRINIVIL) 5 mg tablet 2018-09-13 00:00:00 2019 00:00:00 No Essential hypertension 5mg QD Take 1 tablet by mouth park giang [facility] metFORMIN (GLUCOPHAGE) 500 mg tablet 2018-09-13 00:00: 00 2019-06-14 00:00:00 No Type 2 diabetes mellitus wit hout complication, with long-term current use of insulin 500mg Take 1 tablet by vandana th 2 times daily (with meals) For diabetes. [facility] ibuprofen (MOTRIN) 400 mg tablet 2018-09-13 00:00:00 2019-05 00:00:00 No Elbow pain, chronic, left 400mg Take 1 tablet by mouth every 12 hours as needed for Pain (take with food). [facility] tropicamide (MYDRIACYL) 0.5 % ophthalmic solution 2018-09-13 00:00:00 2018-09-13 23:59:00 No Type 2 diabetes ana itus without complication, with long-term current use of insulin 1[drp] Instill 1 Drop in each eye once as needed for up to 1 dose (for poor retina scan image). [facility] metFORMIN (GLUCOPHAGE) 500 mg tablet 2018-09-13 00:00: 00 2018-09-13 00:00:00 No Type 2 diabetes mellitus wit hout complication, with long-term current use of insulin 500mg Take 1 tablet by vandana th 2 times daily (with meals) For diabetes. [facility] atorvastatin (LIPITOR) 20 mg tablet 2018-09-13 00:00:0 0 2018-09-13 00:00:00 No Hyperlipidemia, unspecified hyperlipidemia type 20mg Take 1 tablet by mouth at bedtime nightly. [facility] lisinopril (PRINIVIL) 5 mg tablet 2018-09-13 00:00:00 2018 00:00:00 No Essential hypertension 5mg QD Take 1 tablet by mouth park giang [facility] fenofibrate nanocrystallized (TRICOR) 145 mg tablet 2018-09-13 00:00:00 2018-09-13 00:00:00 No Hypertriglyceridemia 145mg QD Take 1 tablet by mouth daily. [facility] ibuprofen (MOTRIN) 800 mg tablet 2018-07-26 00:00:00 2018-08 00:00:00 No Lateral epicondylitis of left elbow 800mg Take 1 tablet by mouth every 8 hours as needed for Pain. [facility] metFORMIN (GLUCOPHAGE) 500 mg tablet 2017-12-19 00:00: 00 2018-09-13 00:00:00 No Type 2 diabetes mellitus wit hout complication, with long-term current use of insulin 500mg [facility] daily (with meals) For diabetes. [facility] atorvastatin (LIPITOR) 20 mg tablet 2017-12-19 00:00:0 0 2018-09-13 00:00:00 No Hyperlipidemia, unspecified hyperlipidemia type 20mg Take 1 tablet by mouth at bedtime nightly. [facility] lancets 28 gauge 2017-11-10 00:00:00 Yes Type 2 diabetes mellitus without complication, with long-term current use of insulin 100{each} Use 2 times daily as needed [facility] blood glucose (PRECISION XTRA TEST STRIPS) test strips 2017-11-10 00:00:00 Yes Type 2 diabetes mellitus wit hout complication, with long-term current use of insulin 1{each} Q.5D Check blood glucose 2 times daily [facility] lisinopril (PRINIVIL) 5 mg tablet 2017-11-10 00:00:00 2018 00:00:00 No Essential hypertension 5mg QD Take 1 tablet by mouth park giang [facility] INSULIN SYRINGE 0.5mL 30GX5/16" (MONOJEC T ULTRACOMFORT INSULIN SYR 0.5ML 30GX5/16") syringe-needle 2017-11-10 00:00:2018-09-13 00:00:00 No Type 2 diabetes mellitus without complication, with long-term current use of insulin Use to inject medication 5 times daily. Use a new syringe each t marshal. [facility] blood glucose meter 2017-09-23 00:00:00 Yes Newly diagnosed diabetes Use as directed.. [facility] Metformin Hcl Metformin Hcl 2019-07-26 00:00:00 No 500 Twice A Day [facility] Acetaminophen With Codeine (Tylenol With Codeine #3 Ta blet) 1 Each TABLET Acetaminophen With Codeine (Tylenol With Codeine #3 Tablet) 1 Each TABLET 2019-07-22 00:00:00 No 300 Every 6 Hours as needed for Moderate Pain (4-6) [facility] Immunizations Ordered Immunization Name Filled Immunization Name Date Status Comments Source Influenza, Vaccine<FLUCELVAX>(Multi-Dose) 2017-12-19 00:00 :00 Completed [facility] Tdap (Tetanus Toxoid, Reduced Diphtheria Toxoid And Acellular Pertussis, Absorbed) 2017-11-10 00:00:00 [facility] ealt PPV 23 (Pneumococcal Polysaccharide 23 Valent) 2017-10 00:00:00 [facility] Vital Signs Vital Name Observation Time Observation Value Comments Source Body Temperature 2019-07-26 15:46:00 97.8 [degF] [facility] BMI (Body Mass Index) 2019-07-24 09:26:00 37.9 kg/m2 [facility] Weight 2019-07-22 21:26:00 221 [lb_av] [facility] Body Temperature 2019-07-08 12:20:00 97.3 [degF] [facility] BMI (Body Mass Index) 2019-07-07 01:08:00 39.5 kg/m2 [facility] Weight 2019-07-04 18:28:00 230 [lb_av] [facility] Heart rate 2018-09-13 11:36:00 98 /min manual radial pulse H [facility] Systolic blood pressure 2018-09-13 10:44:00 130 mm[Hg] [facility] Diastolic blood pressure 2018-09-13 10:44:00 85 mm[Hg] [facility] temperature 2018-09-13 10:44:00 36.94 Lizette Rehana is [facility] Respiratory rate 2018-09-13 10:44:00 18 /min Rehana is [facility] Body height 2018-09-13 10:44:00 162.6 cm [facility] Body weight 2018-09-13 10:44:00 109.68 kg [facility] BMI 2018-09-13 10:44:00 41.50 kg/m2 [facility] Procedures Procedure Date / Time Performed Performing Clinician [facility] e Computed tomography of abdomen and pelvis with contrast 00:00:00 [facility] Computed tomography of abdomen and pelvis with contrast 00:00:00 [facility] XRAY ELBOW 3 VIEWS MIN 2018-09-13 12:55:46 Trung Bradshaw [facility] LIPID PROFILE 2018-09-13 11:59:00 Trung Bradshaw HEMOGLOBIN A1C 2018-09-13 11:59:00 Trung Bradshaw COMPREHENSIVE METABOLIC PANEL 2018-09-13 11:59:00 Trung Bradshaw [facility] OPHTHALMOLOGY RETINAL SCAN 2018-09-13 11:54:02 Trung Bradshaw [facility] Plan of Care Planned Activity Planned Date Details Comments Source Future Scheduled Test 2019-11-15 00:00:00 IMM Influenza Seas onal Nov to April (>/= 19 yrs) [code = IMM Influenza Seasonal Nov to April (>/= 19 yrs)] [facility] Scheduled Test 2019-09-14 00:00:00 Hemoglobin A1c akash surement (procedure) [code = 71466436] [facility] Scheduled Test 2019-09-14 00:00:00 DM Retinal Exam (Y early) [code = DM Retinal Exam (Yearly)] [facility] Scheduled Test 2018-12-19 00:00:00 DM Foot Exam (Year ly) [code = DM Foot Exam (Yearly)] [facility] Scheduled Test 2018-11-10 00:00:00 Urine screening fo r protein (procedure) [code = 167332655] [facility] Instructions Alcohol Abuse [facility] Instructions Hypercholesteremia [facility] Instructions Pancreatitis [facility] Encounters Start Date/Time End Date/Time Encounter Type Admission Type [facility] Care Department Encounter ID Source 2019-07-22 11:05:00 2019-07-26 18:57:00 Discharged Inpatient 1 AV BECKWITH [facility] Luradha's Patients [id number] [facility] 2019-07-04 15:34:00 2019-07-08 15:41:00 Discharged Inpatient 1 AV BECKWITH [facility] Luke's Patients [facility] [id number] [facility] 2019-[facility]-17 04:44:00 2019-02-17 00:16:00 Inpatient E [facility] [facility] 2018-11-13 00:00:00 2018-11-13 00:00:[address] [facility] [id number] [facility] 2018-09-13 12:52:54 2018-09-13 12:52:[address] [facility] [id number] [facility] 2018-09-13 11:59:42 2018-09-13 11:59:[address] [facility] [id number] [facility] 2018-09-13 11:50:56 2018-09-13 11:50:[address] [facility] [id number] [facility] 2018-09-13 10:43:26 2018-09-13 10:43:[address] [facility] [id number] [facility] 2018-09-13 00:00:00 2018-09-13 00:00:[address] [facility] [id number] [facility] 2018-07-26 15:23:18 2018-07-26 15:23:[address] [facility] [id number] [facility] 2018-02-21 00:00:00 2018-02-21 00:00:[address] [facility] [id number] [facility] 2018-02-09 08:43:51 2018-02-09 08:43:[address] [facility] [id number] [facility] 2018-01-16 00:00:00 2018-01-16 00:00:[address] [facility] [id number] [facility] 2017-12-28 00:00:00 2017-12-28 00:00:[address] [facility] [id number] [facility] 2017-12-19 15:16:04 2017-12-19 15:16:[address] [facility] [id number] [facility] 2017-12-13 00:00:00 2017-12-13 00:00:[address] [facility] [id number] [facility] 2017-12-13 00:00:00 2017-12-13 00:00:[address] [facility] [id number] [facility] 2017-12-13 00:00:00 2017-12-13 00:00:[address] [facility] [id number] [facility] 2017-11-21 00:00:00 2017-11-21 00:00:[address] [facility] [id number] [facility] 2017-11-21 00:00:00 2017-11-21 00:00:[address] [facility] [id number] [facility] 2017-11-10 15:37:03 2017-11-10 15:37:[address] [facility] [id number] [facility] 2017-11-10 15:32:56 2017-11-10 15:32:[address] [facility] [id number] [facility] 2017-11-10 13:32:59 2017-11-10 13:32:[address] [facility] [id number] [facility] 2017-09-23 14:38:25 2017-09-23 14:38:[address] [facility] [id number] [facility] Results Test Description Test Time Test Comments Results Result Comments Source CT ABDOMEN/PELVIS WO 2019-09-10 15:16:00 [place] [address] Patient Name: DEANDRE PHILIP MR #: [id number] : 1985 Age/Sex: 34/M Req #: [id number] Adm Physician: Ordered by: JEFERSON KELLOGG MD Report #: [id number] Location: ER Room/Bed: Procedure: [id number] CT/CT ABDOMEN/PELVIS WO Exam Date: 09/10/19 Exam [...] Test Item Bedside Glucose (test code = 88088-9) 133 70-120 Meter ID: [id number] Medical Cent[facility]rum or plasma lipase measurement (enzymatic activity/volume)2019-07-25 05:25:00* Test Item Value Reference Range Interpretation Comments Lipase (test code = 3040-3) 63 8-78 [facility] sodium measurement (moles/volume)2019-07-24 14:58:00* Test Item Value Reference Range Interpretation Comments Sodium Level (test code = 2951-2) 137 136-145 [facility] potassium measurement (moles/volume)2019-07-24 14:58:00* Test Item Value Reference Range Interpretation Comments Potassium Level (test code = 2823-3) 3.5 3.5-5.1 [facility] chloride measurement (moles/volume)2019-07-24 14:58:00* Test Item Value Reference Range Interpretation Comments Chloride Level (test code = 2075-0) 103 98-107 [facility] carbon dioxide, total measurement (moles/volume)2019-07-24 14:58:00* Test Item Value Reference Range Interpretation Comments Carbon Dioxide Level (test code = 2028-9) 21 22-29 [facility] plasma anion ayt9710-19-11 14:58:00* Test Item Value Reference Range Interpretation Comments Anion Gap (test code = 38390-4) 16.5 8-16 [facility] urea nitrogen measurement (mass/volume)2019-07-24 14:58:00* Test Item Value Reference Range Interpretation Comments Blood Urea Nitrogen (test code = 3094-0) < 5 7-26 [facility] plasma creatinine measurement (mass/volume)2019-07-24 14:58:00* Test Item Value Reference Range Interpretation Comments Creatinine (test code = 2160-0) 0.68 0.72-1.25 [facility] plasma urea nitrogen/creatinine mass amtvb7051-88-21 14:58:00* Test Item Value Reference Range Interpretation Comments BUN/Creatinine Ratio (test code = 3097-3) 7 6-25 [facility] glomerular filtration rate (GFR) sibyihkrmuckw9721-69-53 14:58:00* Test Item Value Reference Range Interpretation Comments Estimat Glomerular Filtration Rate (test code = 817652861) > 60 >60 Ranges were taken from the National Kidney Disease Education Program and the Kevin ional Kid[employer] Foundation literature.Reference ranges:60 or greater: Nthtuw35-91 ( for 3 consecutive months): Chronic kidney disease 15 or less: Kidney failureAdventHealth Central TexasGlucose frwqdgghezf1629-82-17 14:58:00* Test Item Value Reference Range Interpretation Comments Glucose Level (test code = KMZ3786) 114 74-118 [facility] plasma calcium measurement (mass/volume)2019-07-24 14:58:00* Test Item Value Reference Range Interpretation Comments Calcium Level (test code = 80377-0) 9.3 8.4-10.2 [facility] leukocytes automated count (number/volume)2019-07-23 04:35:00* Test Item Value Reference Range Interpretation Comments White Blood Count (test code = 6690-2) 6.81 4.8-10.8 [facility] TexasBlood erythrocytes automated count (number/volume)2019-07-23 04:35:00* Test Item Value Reference Range Interpretation Comments Red Blood Count (test code = 789-8) 4.66 4.3-5.7 [facility] hemoglobin measurement (moles/volume)2019-07-23 04:35:00* Test Item Value Reference Range Interpretation Comments Hemoglobin (test code = 70372-2) 13.1 14.0-18.0 [facility] TexasAutomated blood hematocrit (volume fraction)2019-07-23 04:35:00* Test Item Value Reference Range Interpretation Comments Hematocrit (test code = 4544-3) 38.1 38.2-49.6 [facility] TexasAutomated erythrocyte mean corpuscular hcubav0651-96-17 04:35:00* Test Item Value Reference Range Interpretation Comments Mean Corpuscular Volume (test code = 787-2) 81.8 81-99 [facility] TexasAutomated erythrocyte mean corpuscular hemoglobin (mass per erythrocyte)2019-07-23 04:35:00* Test Item Value Reference Range Interpretation Comments Mean Corpuscular Hemoglobin (test code = 785-6) 28.1 28-32 [facility] TexasAutomated erythrocyte mean corpuscular hemoglobin concentration measurement (mass/volume)2019-07-23 04:35:00* Test Item Value Reference Range Interpretation Comments Mean Corpuscular Hemoglobin Concent (test code = 786-4) 34.4 31-35 [facility] TexasRDW SuuSd-Zzr4267-54-08 04:35:00* Test Item Value Reference Range Interpretation Comments Red Cell Distribution Width (test code = 95266-9) 12.8 11.7 -14.4 [facility] TexasAutomated blood platelet count (count/volume)2019-07-23 04:35:00* Test Item Value Reference Range Interpretation Comments Platelet Count (test code = 777-3) 260 140-360 [facility]Aut[facility]ed blood segmented neutrophil count as percentage of total fstlacbpnx2216-40-06 04:35:00* Test Item Value Reference Range Interpretation Comments Neutrophils (%) (Auto) (test code = 03886-3) 66.4 38.7-80.0 [facility] TexasAutomated blood lymphocyte count as percentage ot total iaesyzlonw2718-27-02 04:35:00* Test Item Value Reference Range Interpretation Comments Lymphocytes (%) (Auto) (test code = 736-9) 21.0 18.0-39.1 [facility]Automated blood monocyte count as percentage of total oueewrgiot9220-34-64 04:35:00* Test Item Value Reference Range Interpretation Comments Monocytes (%) (Auto) (test code = 5905-5) 7.2 4.4-11.3 [facility] TexasAutomated blood eosinophil count as percentage of total idxuctxjld9445-42-51 04:35:00* Test Item Value Reference Range Interpretation Comments Eosinophils (%) (Auto) (test code = 713-8) 4.4 0.0-6.0 [facility] TexasAutomated blood basophil count as percentage of total bisgnepwas5755-68-83 04:35:00* Test Item Value Reference Range Interpretation Comments Basophils (%) (Auto) (test code = 706-2) 0.6 0.0-1.0 [facility] TexasFluoroscopic procedure less than one hour vejgvhet7100-57-10 04:35:00* Test Item Value Reference Range Interpretation Comments IM GRANULOCYTES % (test code = IM GRANULOCYTES %) 0.4 0.0- 1.0 [facility] TexasAutom[facility] blood neutrophil count 2019-07-23 04:35:00* Test Item Value Reference Range Interpretation Comments Neutrophils # (Auto) (test code = 751-8) 4.5 2.1-6.9 [facility]Blood lymphocytes count (number/volume) 2019-07-23 04:35:00* Test Item Value Reference Range Interpretation Comments Lymphocytes # (Auto) (test code = 91354-8) 1.4 1.0-3.2 [facility] monocytes automated count (number/volume)2019-07-23 04:35:00* Test Item Value Reference Range Interpretation Comments Monocytes # (Auto) (test code = 742-7) 0.5 0.2-0.8 [facility] TexasAutomated blood eosinophil count 2019-07-23 04:35:00* Test Item Value Reference Range Interpretation Comments Eosinophils # (Auto) (test code = 711-2) 0.3 0.0-0.4 [facility] TexasAutomated blood basophil count (count/volume)2019-07-23 04:35:00* Test Item Value Reference Range Interpretation Comments Basophils # (Auto) (test code = 704-7) 0.0 0.0-0.1 [facility] TexasFluoroscopic procedure less than one hour yvwpfzny7069-26-45 04:35:00* Test Item Value Reference Range Interpretation Comments Absolute Immature Granulocyte (auto (laron t code = Absolute Immature Granulocyte (auto) 0.03 0-0.1 [facility] or plasma amylase measurement (enzymatic activity/volume)2019-07-23 04:35:00* Test Item Value Reference Range Interpretation Comments Amylase Level (test code = 1798-8) 203 25-125 [facility] or plasma triglyceride measurement (mass/volume)2019-07-22 15:02:00* Test Item Value Reference Range Interpretation Comments Triglycerides Level (test code = 2571-8) 2799 0-149 [facility] or plasma cholesterol measurement (mass/volume)2019-07-22 15:02:00* Test Item Value Reference Range Interpretation Comments Cholesterol Level (test code = 2093-3) 343 0-199 Less than 200 mg/dL Low Wssc883 - 239 mg/dL Borderline Txkh428 m g/dl and greater High Risk [facility] or plasma cholesterol in HDL measurement (mass/volume) 2019-07-22 15:02:00* Test Item Value Reference Range Interpretation Comments HDL Cholesterol (test code = 2085-9) 25 40-60 [facility] or plasma total cholesterol/cholesterol in HDL mass rhogr5889-30-19 15:02:00* Test Item Value Reference Range Interpretation Comments Cholesterol/HDL Ratio (test code = 9830-1) 13.7 3.9-4.7 [facility]Fluoroscopic procedure less than one hour obiukwaq7979-20-85 11:28:00* Test Item Value Reference Range Interpretation [...] complexity tests.Testing performed by [facility] [id number] [place], [place] [phone] Director: Orlando Hope M.D.CLIA # [id number] [facility] M4893-82-82 10:37:00 [place] [address] Patient Name: DEANDRE PHILIP MR #: [id number] : 1985 Age/Sex: 34/M Req #: [id number] Adm Physician: Ordered by: AV BECKWITH MD Report #: [id number] Location: Room/Bed: Procedure: [id number] CT/CT ABDOMEN/PEL VIS W Exam Date: 07/22/19 [...] MD 104 Transcribed By: BHAKTI on 07/22/19 1045 COPY TO: AV BECKWITH MD CHEST SINGLE (PORTABLE)2019-07-22 10:12:00 [place] [address] Patient Name: DEANDRE PHILIP MR #: [id number] : 1985 Age/Sex: 34/M Req #: [id number] Adm Physician: Ordered by: AV BECKWITH MD Report #: [id number] Location: ER Room/Bed: Procedure: [id number] DX/CHEST SINGLE ( PORTABLE) Exam Date: 07/22/19 Exam Time: 920 REPORT STATUS: Signed EXAMINATION: CH EST SINGLE (PORTABLE) INDICATION: ABD PAIN COMPARISON: [...] Kinase (test code = 2157-6) 40 30-200 [facility] or plasma creatine kinase MB measurement (mass/volume)2019-07-22 09:38:00* Test Item Value Reference Range Interpretation Comments Creatine Kinase MB (test code = 81793-1) 0.60 0-5.0 [facility] TexasTroponin I measurement by highly sensitive enzyme gkvgvantwgu7141-72-80 09:38:00* Test Item Value Reference Range Interpretation Comments Troponin I (test code = 68810-2) < 0.001 0-0.300 [facility]Fluoroscopic procedure less than one hour ueeddfeg9391-67-39 09:00:00* Test Item Value Reference Range Interpretation Comments Lactic Acid Level (test code = Lactic Acid Level) 1.7 0.5- 2.0 [facility] color lwyngmetdxayx1443-83-80 08:30:00* Test Item Value Reference Range Interpretation Comments Urine Color (test code = 5778-6) YELLOW YELLOW [facility] dehzyjd2614-86-22 08:30:00* Test Item Value Reference Range Interpretation Comments Urine Clarity (test code = 65817-5) [facility] 2019-07-22 08:30:00* Test Item Value Reference Range Interpretation Comments Urine Specific [place] (test code = 5811-5) 1.030 1.010-1.02 5 [facility] pH measurement by automated test lpvum7450-14-11 08:30:00* Test Item Value Reference Range Interpretation Comments Urine pH (test code = 21356-5) 5 5-7 [facility] leukocyte esterase detection by hvpzqzke5230-47-89 08:30:00* Test Item Value Reference Range Interpretation Comments Urine Leukocyte Esterase (test code = 5799-2) NEGATIVE NEGATIVE [facility] nitrite unvnjcxdg4734-64-80 08:30:00* Test Item Value Reference Range Interpretation Comments Urine Nitrite (test code = 91111-4) NEGATIVE NEGATIVE [facility] protein measurement by test strip (mass/volume)2019-07-22 08:30:00* Test Item Value Reference Range Interpretation Comments Urine Protein (test code = 5804-0) NEGATIVE NEGATIVE [facility] glucose ehwigqadb7912-64-74 08:30:00* Test Item Value Reference Range Interpretation Comments Urine Glucose (UA) (test code = 2349-9) 1+ NEGATIVE [facility] ketones detection by automated test mnyrs7552-68-97 08:30:00* Test Item Value Reference Range Interpretation Comments Urine Ketones (test code = 37530-4) TRACE NEGATIVE [facility] TexasU[facility] opiates screening utsc2744-70-60 08:30:00* Test Item Value Reference Range Interpretation Comments Urine Opiates Screen (test code = 13133-0) POSITIVE NEGATIVE This test provides only a screen. Positive results should be repeated by a confi rmatory test.[facility] TexasBarbiturates screen, urine 2019-07-22 08:30:00* Test Item Value Reference Range Interpretation Comments Urine Barbiturates Screen (test code = 280485886) NEGATIVE NEGA TIVE [facility] TexasU[facility] phencyclidine detection by screening wvlplp6515-08-60 08:30:00* Test Item Value Reference Range Interpretation Comments Urine Phencyclidine Screen (test code = 38048-7) NEGATIVE NEGAT MIGUEL [facility] TexasU[facility] amphetamines detection by screen method > 1000 ng/qY7548-86-55 08:30:00* Test Item Value Reference Range Interpretation Comments Urine Amphetamines Screen (test code = 10026-7) NEGATIVE NEGATI VE [facility] TexasFluoroscopic procedure less than one hour msaltxxa8176-52-41 08:30:00* Test Item Value Reference Range Interpretation Comments Urine Methamphetamines Screen (test code = Urine Metha mphetamines Screen) NEGATIVE NEGATIVE [facility] TexasUrine benzodiazepines detection by screening rrtwnf2250-59-98 08:30:00* Test Item Value Reference Range Interpretation Comments Urine Benzodiazepines Screen (test code = 97436-4) NEGATIVE NEG ATIVE [facility] TexasU[facility] cocaine measurement (mass/volume) 2019-07-22 08:30:00* Test Item Value Reference Range Interpretation Comments Urine Cocaine Screen (test code = 3398-5) POSITIVE NEGATIVE This test provides only a screen. Positive results should be repeated by a confi rmatory test.[facility] TexasUrine cannabinoids detection by screening lfwhzw8566-22-13 08:30:00* Test Item Value Reference Range Interpretation Comments Urine Cannabinoids Screen (test code = 36890-2) NEGATIVE NEGATI VE THESE RESULTS ARE FOR MEDICAL TREATMENT ONLYTHIS REPORT CONTAINS UNCONFIR MED SCREENING RESULTS*POSITIVE RESULTS WILL BE CONFIRMED BY REFERENCE LAB UPON R EQUEST CUT-OFFDRUG CLASS CONCENTRATION ng/mLAmphetamines 1000Methamphetamines 1000Cocaine 300Opiate 300Phencyc lidine 25Cannabinoid 50Barbiturates 300Benzodiazepine 300Methadone 300[facility] TexasUrine methadone itdqzv9251-44-10 08:30:00* Test Item Value Reference Range Interpretation Comments Urine Methadone Screen (test code = 88545-1) NEGATIVE NEGATIVE THESE RESULTS ARE FOR MEDICAL TREATMENT ONLYTHIS REPORT CONTAINS UNCONFIR MED SCREENING RESULTS*POSITIVE RESULTS WILL BE CONFIRMED BY REFERENCE LAB UPON R EQUEST CUT-OFFDRUG CLASS CONCENTRATION ng/mLAmphetamines 1000Methamphetamines 1000Cocaine Metabolite 300Opiate 300Phencyc lidine 25Cannabinoid 50Barbiturates 300Benzodiazepine 300Methadone 300[facility] TexasUrine urobilinogen measurement by test strip (mass/volume)2019-07-22 08:30:00* Test Item Value Reference Range Interpretation Comments Urine Urobilinogen (test code = 13014-0) 0.2 0.2-1 [facility] total bilirubin measurement (mass/volume)2019-07-22 08:30:00* Test Item Value Reference Range Interpretation Comments Urine Bilirubin (test code = 1978-6) NEGATIVE NEGATIVE [facility] erythrocytes mbjxfukmr5831-74-30 08:30:00* Test Item Value Reference Range Interpretation Comments Urine Blood (test code = 19685-8) NEGATIVE NEGATIVE [facility] TexasAutomated urine sediment leukocyte count by microscopy (number/high power field)2019-07-22 08:30:00* Test Item Value Reference Range Interpretation Comments Urine WBC (test code = 5821-4) 0-5 0-5 [facility] TexasErythrocytes detection in urine sediment by light yzsbftdsuj0476-79-15 08:30:00* Test Item Value Reference Range Interpretation Comments Urine RBC (test code = 50221-3) 0-5 0-5 [facility] TexasBacteria detection in urine sediment by light wjbzoebvqw5639-50-29 08:30:00* Test Item Value Reference Range Interpretation Comments Urine Bacteria (test code = 80152-0) NONE NONE [facility] TexasEpithelial cells detection in urine sediment by light hzxodaniav8099-36-18 08:30:00* Test Item Value Reference Range Interpretation Comments Urine Epithelial Cells (test code = 11449-5) NONE NONE [facility] TexasMucus detection in urine sediment by light umqgoorgkd7051-38-59 08:30:00* Test Item Value Reference Range Interpretation Comments Urine Mucus (test code = 8247-9) FEW RARE [facility] TexasBlood btvshyc3581-19-74 08:30:00* Test Item Value Reference Range Interpretation Comments Blood Culture (test code = 15291697) NO GROWTH AFTER 72 HOURS [facility]ererum or plasma acetaminophen measurement by screening method (mass/volume)2019-07-22 08:20:00* Test Item Value Reference Range Interpretation Comments Acetaminophen Level (test code = 77930-7) 4.2 10-30 [facility]ererum or plasma ethanol measurement (mass/volume)2019-07-22 08:20:00* Test Item Value Reference Range Interpretation Comments Ethyl Alcohol Level (test code = 5643-2) < 10.0 0.0-10.0 [facility]ererum or plasma salicylates measurement (mass/volume)2019-07-22 08:20:00* Test Item Value Reference Range Interpretation Comments Salicylates Level (test code = 4024-6) < 5.0 0-30 [facility]ererum or plasma total bilirubin measurement (mass/volume)2019-07-22 07:30:00* Test Item Value Reference Range Interpretation Comments Total Bilirubin (test code = 1975-2) 0.4 0.2-1.2 [facility]Fluoroscopic procedure less than one hour nfztazfb9481-52-14 07:30:00* Test Item Value Reference Range Interpretation Comments Aspartate Amino Transf (AST/SGOT) (test code = Aspartate Amino Transf (AST/SGOT)) 7 5-34 [facility]ererum or plasma alanine aminotransferase measurement (enzymatic activity/volume)2019-07-22 07:30:00* Test Item Value Reference Range Interpretation Comments Alanine Aminotransferase (ALT/SGPT) (test code = 1742-6) 12 0-55 [facility]ererum or plasma protein measurement (mass/volume)2019-07-22 07:30:00* Test Item Value Reference Range Interpretation Comments Total Protein (test code = 2885-2) 9.7 6.5-8.1 [facility]ererum or plasma albumin measurement (mass/volume)2019-07-22 07:30:00* Test Item Value Reference Range Interpretation Comments Albumin (test code = 1751-7) 4.0 3.5-5.0 [facility] TexasPlasma globulin measurement (mass/volume) 2019-07-22 07:30:00* Test Item Value Reference Range Interpretation Comments Globulin (test code = 44026-1) 5.7 2.3-3.5 [facility]ererum or plasma albumin/globulin mass rifxp2199-08-43 07:30:00* Test Item Value Reference Range Interpretation Comments Albumin/Globulin Ratio (test code = 1759-0) 0.7 0.8-2.0 [facility]ererum or plasma alkaline phosphatase measurement (enzymatic activity/volume)2019-07-22 07:30:00* Test Item Value Reference Range Interpretation Comments Alkaline Phosphatase (test code = 6768-6) 112 40-150 [facility]ererum or plasma sodium measurement (moles/volume)2019-07-08 14:34:00* Test Item Value Reference Range Interpretation Comments Sodium Level (test code = 2951-2) 138 136-145 [facility]ererum or plasma potassium measurement (moles/volume)2019-07-08 14:34:00* Test Item Value Reference Range Interpretation Comments Potassium Level (test code = 2823-3) 4.4 3.5-5.1 [facility]ererum or plasma chloride measurement (moles/volume)2019-07-08 14:34:00* Test Item Value Reference Range Interpretation Comments Chloride Level (test code = 2075-0) 100 98-107 [facility]ererum or plasma carbon dioxide, total measurement (moles/volume)2019-07-08 14:34:00* Test Item Value Reference Range Interpretation Comments Carbon Dioxide Level (test code = 2028-9) 29 22-29 [facility]ererum or plasma anion yaw7795-17-31 14:34:00* Test Item Value Reference Range Interpretation Comments Anion Gap (test code = 49575-0) 13.4 8-16 [facility]ererum or plasma urea nitrogen measurement (mass/volume)2019-07-08 14:34:00* Test Item Value Reference Range Interpretation Comments Blood Urea Nitrogen (test code = 3094-0) 7 7-26 [facility]ererum or plasma creatinine measurement (mass/volume)2019-07-08 14:34:00* Test Item Value Reference Range Interpretation Comments Creatinine (test code = 2160-0) 0.77 0.72-1.25 [facility]ererum or plasma urea nitrogen/creatinine mass vlxpf3891-82-31 14:34:00* Test Item Value Reference Range Interpretation Comments BUN/Creatinine Ratio (test code = 3097-3) 9 6-25 [facility] TexasEstimated glomerular filtration rate (GFR) yypmtfvlkwchr8036-07-78 14:34:00* Test Item Value Reference Range Interpretation Comments Estimat Glomerular Filtration Rate (test code = 034510866) > 60 >60 Ranges were taken from the National Kidney Disease Education Program and the [facility] literature.Reference ranges:60 or greater: Zyxbsp73-84 ( for 3 consecutive months): Chronic kidney disease 15 or less: Kidney failureAdventHealth Central TexasGlucose vptbmzovycj5997-50-15 14:34:00* Test Item Value Reference Range Interpretation Comments Glucose Level (test code = CTO2512) 256 74-118 [facility]ererum or plasma calcium measurement (mass/volume)2019-07-08 14:34:00* Test Item Value Reference Range Interpretation Comments Calcium Level (test code = 65883-9) 10.1 8.4-10.2 [facility] TexasCapillary blood glucose measurement by glucometer (mass/volume)2019-07-08 07:49:00* Test Item Value Reference Range Interpretation Comments Bedside Glucose (test code = 37677-1) 134 70-120 Meter ID: [id number] [facility] Center BrownwoodBlood leukocytes automated count (number/volume)2019-07-07 05:30:00* Test Item Value Reference Range Interpretation Comments White Blood Count (test code = 6690-2) 4.71 4.8-10.8 [facility] TexasBlood erythrocytes automated count (number/volume)2019-07-07 05:30:00* Test Item Value Reference Range Interpretation Comments Red Blood Count (test code = 789-8) 4.86 4.3-5.7 [facility] TexasBlood hemoglobin measurement (moles/volume)2019-07-07 05:30:00* Test Item Value Reference Range Interpretation Comments Hemoglobin (test code = 66905-4) 13.5 14.0-18.0 [facility] TexasAutomated blood hematocrit (volume fraction)2019-07-07 05:30:00* Test Item Value Reference Range Interpretation Comments Hematocrit (test code = 4544-3) 41.9 38.2-49.6 [facility] TexasAutomated erythrocyte mean corpuscular fbszhq3593-83-61 05:30:00* Test Item Value Reference Range Interpretation Comments Mean Corpuscular Volume (test code = 787-2) 86.2 81-99 [facility] TexasAutomated erythrocyte mean corpuscular hemoglobin (mass per erythrocyte)2019-07-07 05:30:00* Test Item Value Reference Range Interpretation Comments Mean Corpuscular Hemoglobin (test code = 785-6) 27.8 28-32 [facility] TexasAutomated erythrocyte mean corpuscular hemoglobin concentration measurement (mass/volume)2019-07-07 05:30:00* Test Item Value Reference Range Interpretation Comments Mean Corpuscular Hemoglobin Concent (test code = 786-4) 32.2 31-35 [facility] TexasRDW IhoRv-Mix2137-01-23 05:30:00* Test Item Value Reference Range Interpretation Comments Red Cell Distribution Width (test code = 47671-1) 13.2 11.7 -14.4 [facility] TexasAutomated blood platelet count (count/volume)2019-07-07 05:30:00* Test Item Value Reference Range Interpretation Comments Platelet Count (test code = 777-3) 248 140-360 [facility] TexasAutomated blood segmented neutrophil count as percentage of total zjfpyhhlaw5681-51-32 05:30:00* Test Item Value Reference Range Interpretation Comments Neutrophils (%) (Auto) (test code = 32409-3) 48.9 38.7-80.0 [facility] TexasAutomated blood lymphocyte count as percentage ot total mggatmaaey6101-81-43 05:30:00* Test Item Value Reference Range Interpretation Comments Lymphocytes (%) (Auto) (test code = 736-9) 32.9 18.0-39.1 [facility] TexasAutomated blood monocyte count as percentage of total smjlwxecjp7276-16-09 05:30:00* Test Item Value Reference Range Interpretation Comments Monocytes (%) (Auto) (test code = 5905-5) 9.3 4.4-11.3 [facility] TexasAutomated blood eosinophil count as percentage of total ixmowrifxs8397-51-93 05:30:00* Test Item Value Reference Range Interpretation Comments Eosinophils (%) (Auto) (test code = 713-8) 7.9 0.0-6.0 [facility] TexasAutomated blood basophil count as percentage of total qbpmmszpji9522-34-06 05:30:00* Test Item Value Reference Range Interpretation Comments Basophils (%) (Auto) (test code = 706-2) 0.6 0.0-1.0 [facility] TexasFluoroscopic procedure less than one hour yzvubokk9352-95-94 05:30:00* Test Item Value Reference Range Interpretation Comments IM GRANULOCYTES % (test code = IM GRANULOCYTES %) 0.4 0.0- 1.0 [facility] TexasAutomated blood neutrophil count 2019-07-07 05:30:00* Test Item Value Reference Range Interpretation Comments Neutrophils # (Auto) (test code = 751-8) 2.3 2.1-6.9 [facility]Bl[facility] lymphocytes count (number/volume) 2019-07-07 05:30:00* Test Item Value Reference Range Interpretation Comments Lymphocytes # (Auto) (test code = 82079-4) 1.6 1.0-3.2 [facility] TexasBlood monocytes automated count (number/volume)2019-07-07 05:30:00* Test Item Value Reference Range Interpretation Comments Monocytes # (Auto) (test code = 742-7) 0.4 0.2-0.8 [facility] TexasAutomated blood eosinophil count 2019-07-07 05:30:00* Test Item Value Reference Range Interpretation Comments Eosinophils # (Auto) (test code = 711-2) 0.4 0.0-0.4 [facility] TexasAutomated blood basophil count (count/volume)2019-07-07 05:30:00* Test Item Value Reference Range Interpretation Comments Basophils # (Auto) (test code = 704-7) 0.0 0.0-0.1 [facility] TexasFluoroscopic procedure less than one hour wjhquaqc2550-46-27 05:30:00* Test Item Value Reference Range Interpretation Comments Absolute Immature Granulocyte (auto (laron t code = Absolute Immature Granulocyte (auto) 0.02 0-0.1 [facility]ererum or plasma lipase measurement (enzymatic activity/volume)2019-07-07 05:30:00* Test Item Value Reference Range Interpretation Comments Lipase (test code = 3040-3) 65 8-78 [facility] TexasFluoroscopic procedure less than one hour ewsrzvjh2096-91-08 05:20:00* Test Item Value Reference Range Interpretation Comments Hemoglobin A1c Percent (test code = Hemoglobin A1c Percent) 10.7 4.0-7.0 [facility]ererum or plasma total bilirubin measurement (mass/volume)2019-07-05 05:20:00* Test Item Value Reference Range Interpretation Comments Total Bilirubin (test code = 1975-2) 0.7 0.2-1.2 [facility] TexasFluoroscopic procedure less than one hour aimdztqm0829-52-43 05:20:00* Test Item Value Reference Range Interpretation Comments Aspartate Amino Transf (AST/SGOT) (test code = Aspartate Amino Transf (AST/SGOT)) 29 5-34 [facility]ererum or plasma alanine aminotransferase measurement (enzymatic activity/volume)2019-07-05 05:20:00* Test Item Value Reference Range Interpretation Comments Alanine Aminotransferase (ALT/SGPT) (test code = 1742-6) 36 0-55 [facility]ererum or plasma protein measurement (mass/volume)2019-07-05 05:20:00* Test Item Value Reference Range Interpretation Comments Total Protein (test code = 2885-2) 6.3 6.5-8.1 [facility]ererum or plasma albumin measurement (mass/volume)2019-07-05 05:20:00* Test Item Value Reference Range Interpretation Comments Albumin (test code = 1751-7) 3.2 3.5-5.0 [facility] TexasPlasma globulin measurement (mass/volume) 2019-07-05 05:20:00* Test Item Value Reference Range Interpretation Comments Globulin (test code = 44358-7) 3.1 2.3-3.5 [facility]ererum or plasma albumin/globulin mass gecqo5719-85-50 05:20:00* Test Item Value Reference Range Interpretation Comments Albumin/Globulin Ratio (test code = 1759-0) 1.0 0.8-2.0 [facility]ererum or plasma alkaline phosphatase measurement (enzymatic activity/volume)2019-07-05 05:20:00* Test Item Value Reference Range Interpretation Comments Alkaline Phosphatase (test code = 6768-6) 104 40-150 [facility]ererum or plasma thyrotropin measurement by detection limit <= 0.005 miu/l (units/volume)2019-07-05 05:20:00* Test Item Value Reference Range Interpretation Comments Thyroid Stimulating Hormone (TSH) (test code = 89220-2) 2.097 0.350-4.940 [facility]Fluoroscopic procedure less than one hour asmmjltr2720-75-80 05:20:00* Test Item Value Reference Range Interpretation Comments Hemoglobin A1c Percent (test code = Hemoglobin A1c Percent) 10.7 4.0-7.0 [facility]ererum or plasma thyrotropin measurement by detection limit <= 0.005 miu/l (units/volume)2019-07-05 05:20:00* Test Item Value Reference Range Interpretation Comments Thyroid Stimulating Hormone (TSH) (test code = 18162-6) 2.097 0.350-4.940 [facility] TexasFluoroscopic procedure less than one hour xlxmxfwj1997-15-95 18:03:00* Test Item Value Reference Range Interpretation [...] complexity tests.Testing performed by [facility] [id number] [place] [address] [phone] Director: Orlando Hope M.D.CLIA # [id number] [facility] IrvingUrine color wwakgvtipntxv0877-81-43 16:11:00* Test Item Value Reference Range Interpretation Comments Urine Color (test code = 5778-6) YELLOW YELLOW [facility]Urine bluhjvd6610-95-99 16:11:00* Test Item Value Reference Range Interpretation Comments Urine Clarity (test code = 60709-3) SL CLOUDY CLEAR [facility] Centerpecific gravity of Urine by Test strip 2019-07-04 16:11:00* Test Item Value Reference Range Interpretation Comments Urine Specific [place] (test code = 5811-5) 1.020 1.010-1.02 5 [facility] TexasUrine pH measurement by automated test xanbb1283-39-71 16:11:00* Test Item Value Reference Range Interpretation Comments Urine pH (test code = 52839-2) 5 5-7 [facility] TexasUrine leukocyte esterase detection by aoogbbze4814-59-86 16:11:00* Test Item Value Reference Range Interpretation Comments Urine Leukocyte Esterase (test code = 5799-2) NEGATIVE NEGATIVE [facility] TexasUrine nitrite rngikhsgo5926-53-93 16:11:00* Test Item Value Reference Range Interpretation Comments Urine Nitrite (test code = 32825-4) NEGATIVE NEGATIVE [facility] TexasUrine protein measurement by test strip (mass/volume)2019-07-04 16:11:00* Test Item Value Reference Range Interpretation Comments Urine Protein (test code = 5804-0) 1+ NEGATIVE [facility] TexasUrine glucose tphxdgiud0053-28-20 16:11:00* Test Item Value Reference Range Interpretation Comments Urine Glucose (UA) (test code = 2349-9) 2+ NEGATIVE [facility] TexasUrine ketones detection by automated test fqqlh8787-94-71 16:11:00* Test Item Value Reference Range Interpretation Comments Urine Ketones (test code = 41489-4) 2+ NEGATIVE [facility] TexasUrine opiates screening rair5409-40-69 16:11:00* Test Item Value Reference Range Interpretation Comments Urine Opiates Screen (test code = 35349-4) POSITIVE NEGATIVE ALL TESTS PERFORMED MANUALLY ON Lexim TOX/SEE TEST This test provides only a sc reen. Positive results should be repeated by a confirmatory test.[facility] TexasBarbiturates screen, lbair3603-19-29 16:11:00* Test Item Value Reference Range Interpretation Comments Urine Barbiturates Screen (test code = 634158249) NEGATIVE NEGA TIVE [facility] TexasUrine phencyclidine detection by screening betqsm9756-64-97 16:11:00* Test Item Value Reference Range Interpretation Comments Urine Phencyclidine Screen (test code = 28502-4) NEGATIVE NEGAT MIGUEL [facility] TexasUrine amphetamines detection by screen method > 1000 ng/lJ4532-73-77 16:11:00* Test Item Value Reference Range Interpretation Comments Urine Amphetamines Screen (test code = 43423-0) NEGATIVE NEGATI VE [facility] TexasFluoroscopic procedure less than one hour beuguobq3948-63-84 16:11:00* Test Item Value Reference Range Interpretation Comments Urine Methamphetamines Screen (test code = Urine Metha mphetamines Screen) NEGATIVE NEGATIVE [facility] TexasUrine benzodiazepines detection by screening qjjukr6401-76-94 16:11:00* Test Item Value Reference Range Interpretation Comments Urine Benzodiazepines Screen (test code = 73839-0) NEGATIVE NEG ATIVE [facility] TexasUrine cocaine measurement (mass/volume) 2019-07-04 16:11:00* Test Item Value Reference Range Interpretation Comments Urine Cocaine Screen (test code = 3398-5) NEGATIVE NEGATIVE [facility] TexasUrine cannabinoids detection by screening banzoi4170-14-43 16:11:00* Test Item Value Reference Range Interpretation Comments Urine Cannabinoids Screen (test code = 55301-9) NEGATIVE NEGATI VE THESE RESULTS ARE FOR MEDICAL TREATMENT ONLYTHIS REPORT CONTAINS UNCONFIR MED SCREENING RESULTS*POSITIVE RESULTS WILL BE CONFIRMED BY REFERENCE LAB UPON R EQUEST CUT-OFFDRUG CLASS CONCENTRATION ng/mLAmphetamines 1000Methamphetamines 1000Cocaine 300Opiate 300Phencyc lidine 25Cannabinoid 50Barbiturates 300Benzodiazepine 300Methadone 300[facility] IrvingUrine methadone apmcip3907-10-95 16:11:00* Test Item Value Reference Range Interpretation Comments Urine Methadone Screen (test code = 72122-7) NEGATIVE NEGATIVE THESE RESULTS ARE FOR MEDICAL TREATMENT ONLYTHIS REPORT CONTAINS UNCONFIR MED SCREENING RESULTS*POSITIVE RESULTS WILL BE CONFIRMED BY REFERENCE LAB UPON R EQUEST CUT-OFFDRUG CLASS CONCENTRATION ng/mLAmphetamines 1000Methamphetamines 1000Cocaine Metabolite 300Opiate 300Phencyc lidine 25Cannabinoid 50Barbiturates 300Benzodiazepine 300Methadone 300[facility] IrvingUrine urobilinogen measurement by test strip (mass/volume)2019-07-04 16:11:00* Test Item Value Reference Range Interpretation Comments Urine Urobilinogen (test code = 41992-3) 0.2 0.2-1 [facility] TexasU[facility] total bilirubin measurement (mass/volume)2019-07-04 16:11:00* Test Item Value Reference Range Interpretation Comments Urine Bilirubin (test code = 1978-6) SMALL NEGATIVE [facility] [place]rine erythrocytes iwtwtqzfs1919-91-24 16:11:00* Test Item Value Reference Range Interpretation Comments Urine Blood (test code = 10627-6) NEGATIVE NEGATIVE [facility]Autom[facility] sediment leukocyte count by microscopy (number/high power field)2019-07-04 16:11:00* Test Item Value Reference Range Interpretation Comments Urine WBC (test code = 5821-4) NONE 0-5 [facility] TexasErythrocytes detection in urine sediment by light nwxqihtnts7553-81-64 16:11:00* Test Item Value Reference Range Interpretation Comments Urine RBC (test code = 35178-0) 0-5 0-5 [facility] TexasBacteria detection in urine sediment by light mddpsfshkm0912-41-42 16:11:00* Test Item Value Reference Range Interpretation Comments Urine Bacteria (test code = 47376-7) FEW NONE [facility] TexasEpithelial cells detection in urine sediment by light frlmkzhyuk4649-30-04 16:11:00* Test Item Value Reference Range Interpretation Comments Urine Epithelial Cells (test code = 73408-8) NONE NONE [facility] TexasCT [facility]/PELVIS [id number] 14:50:00 [facility] [address] [place] [address] Patient Name: DEANDRE PHILIP MR #: [id number] : 1985 Age/Sex: 34/M Req #: [id number] Adm Physician: Ordered by: AV BECKWITH MD Report #: [id number] Location: ER Room/Bed: Procedure: [id number] CT/CT ABDOMEN/PEL VIS W Exam Date: 07/04/19 [...] TO: AV BECKWITH MD Arterial blood pH smrquegpzwg4673-14-23 13:43:00* Test Item Value Reference Range Interpretation Comments Arterial Blood pH (test code = 2744-1) 7.35 7.35-7.45 [facility] TexaspCO2 ZgkU6908-48-91 13:43:00* Test Item Value Reference Range Interpretation Comments Arterial Blood Partial Pressure CO2 (test code = 2019-8) 40 35-45 [facility] TexasArterial blood bicarbonate measurement (moles/volume)2019-07-04 13:43:00* Test Item Value Reference Range Interpretation Comments Arterial Blood HCO3 (test code = 1959-4) - [facility] TexasArterial blood base excess by calculation 2019-07-04 13:43:00* Test Item Value Reference Range Interpretation Comments Arterial Blood Base Excess (test code = 1925-7) -3.0 -2-3 [facility] TexasFluoroscopic procedure less than one hour ulmdtdsm3383-33-67 13:43:00* Test Item Value Reference Range Interpretation Comments FiO2 (test code = FiO2) 21 [facility] TexasArterial blood pH otnglrnzzxw5180-67-93 13:43:00* Test Item Value Reference Range Interpretation Comments Arterial Blood pH (test code = 2744-1) 7.35 7.35-7.45 [facility] [place]aspCO2 RdkB4266-30-84 13:43:00* Test Item Value Reference Range Interpretation Comments Arterial Blood Partial Pressure CO2 (test code = 2019-8) 40 35-45 [facility] TexasArterial blood bicarbonate measurement (moles/volume)2019-07-04 13:43:00* Test Item Value Reference Range Interpretation Comments Arterial Blood HCO3 (test code = 1959-4) - [facility] TexasArterial blood base excess by calculation 2019-07-04 13:43:00* Test Item Value Reference Range Interpretation Comments Arterial Blood Base Excess (test code = 1925-7) -3.0 -2-3 [facility] TexasFluoroscopic procedure less than one hour dypkxvfr5775-73-20 13:43:00* Test Item Value Reference Range Interpretation Comments FiO2 (test code = FiO2) 21 [facility] TexasCHEST SINGLE (PORTABLE)2019-07-04 13:06:00 [facility] [address] [address] Patient Name: DEANDRE PHILIP MR #: [id number] : 1985 Age/Sex: 34/M Req #: [id number] Adm Physician: Ordered by: AV BECKWITH MD Report #: [id number] Location: ER Room/Bed: Procedure: [id number] DX/CHEST SINGLE ( PORTABLE) Exam Date: 07/04/19 [...] (PT) in platelet poor plasma by coagulation ctvus5865-98-75 11:32:00* Test Item Value Reference Range Interpretation Comments Prothrombin Time (test code = 5902-2) 12.5 11.9-14.5 [facility] TexasINR in Platelet poor plasma by Coagulation wgquc8777-27-73 11:32:00* Test Item Value Reference Range Interpretation Comments Prothromb Time International Ratio (test code = 6301-6) 0.88 Oral Anticoagulant Therapy INR Values:1. Low Intensity Therapy 1.5 - 2.02 . Moderate Intensity Therapy 2.0 - 3.03. High Intensity Therapy(1) 2.5 - 3. 54. High Intensity Therapy(2) 3.0 - 4.05. Panic Value INR > 5.0 [facility] TexasActivated partial thromboplastin time (aPTT) in platelet poor plasma by coagulation grarr4382-80-47 11:32:00* Test Item Value Reference Range Interpretation Comments Activated Partial Thromboplast Time (test code = 40064-5) 26.8 23.8-35.5 [facility] TexasFluoroscopic procedure less than one hour jdreimxm2280-68-28 11:32:00* Test Item Value Reference Range Interpretation Comments Lactic Acid Level (test code = Lactic Acid Level) 1.0 0.5- 2.0 [facility] magnesium measurement (mass/volume)2019-07-04 11:32:00* Test Item Value Reference Range Interpretation Comments Magnesium Level (test code = 68821-9) 1.6 1.3-2.1 [facility] triglyceride measurement (mass/volume)2019-07-04 11:32:00* Test Item Value Reference Range Interpretation Comments Triglycerides Level (test code = 2571-8) 1948 0-149 [facility] cholesterol measurement (mass/volume)2019-07-04 11:32:00* Test Item Value Reference Range Interpretation Comments Cholesterol Level (test code = 2093-3) 395 0-199 Less than 200 mg/dL Low Wyjn994 - 239 mg/dL Borderline Eevl384 m g/dl and greater High Risk [facility] cholesterol in HDL measurement (mass/volume) 2019-07-04 11:32:00* Test Item Value Reference Range Interpretation Comments HDL Cholesterol (test code = 2085-9) 25 40-60 [facility]ererum or plasma total cholesterol/cholesterol in HDL mass aomxi9491-48-58 11:32:00* Test Item Value Reference Range Interpretation Comments Cholesterol/HDL Ratio (test code = 9830-1) 15.8 3.9-4.7 [facility] or plasma creatine kinase measurement (enzymatic activity/volume)2019-07-04 11:32:00* Test Item Value Reference Range Interpretation Comments Creatine Kinase (test code = 2157-6) 40 30-200 [facility]ererum or plasma creatine kinase MB measurement (mass/volume)2019-07-04 11:32:00* Test Item Value Reference Range Interpretation Comments Creatine Kinase MB (test code = 98077-4) 0.60 0-5.0 [facility] TexasTroponin I measurement by highly sensitive enzyme mpoilhykhws2689-79-02 11:32:00* Test Item Value Reference Range Interpretation Comments Troponin I (test code = 45751-6) < 0.001 0-0.300 [facility] TexasBlood nqhiifi8386-88-04 11:32:00* Test Item Value Reference Range Interpretation Comments Blood Culture (test code = 52077512) NO GROWTH AFTER 72 HOURS [facility] TexasProthrombin time (PT) in platelet poor plasma by coagulation laemp3139-95-60 11:32:00* Test Item Value Reference Range Interpretation Comments Prothrombin Time (test code = 5902-2) 12.5 11.9-14.5 [facility] TexasINR in Platelet poor plasma by Coagulation iripu2970-99-03 11:32:00* Test Item Value Reference Range Interpretation Comments Prothromb Time International Ratio (test code = 6301-6) 0.88 Oral Anticoagulant Therapy INR Values:1. Low Intensity Therapy 1.5 - 2.02 . Moderate Intensity Therapy 2.0 - 3.03. High Intensity Therapy(1) 2.5 - 3. 54. High Intensity Therapy(2) 3.0 - 4.05. Panic Value INR > 5.0 [facility] TexasActivated partial thromboplastin time (aPTT) in platelet poor plasma by coagulation lidjc3100-37-58 11:32:00* Test Item Value Reference Range Interpretation Comments Activated Partial Thromboplast Time (test code = 33189-7) 26.8 23.8-35.5 [facility]ere[facility] or plasma magnesium measurement (mass/volume)2019-07-04 11:32:00* Test Item Value Reference Range Interpretation Comments Magnesium Level (test code = 85291-1) 1.6 1.3-2.1 [facility] TexasGLUBED2020-05-01 12:00:00* Test Item Value Reference Range Interpretation Comments GLUBED (test code = GLUBED) 223 mg/dL 74-106 H Performed by certified certifed refrigeration operator [facility]~ ROUXXT6944-72-47 06:14:00* Test Item Value Reference Range Interpretation Comments GLUBED (test code = GLUBED) 125 mg/dL 74-106 H Performed by certified certifed refrigeration operator at [facility] CBC W/AUTO [id number] 02:52:00* Test Item Value Reference Range Interpretation [...] (test code = MDIFF) NO COMPREHENSIVE METABOLIC [id number] 02:25:00* Test Item Value Reference Range Interpretation [...] reference range due to change in reagent. [id number] 02:25:00* Test Item Value Reference Range Interpretation Comments LIPASE (test code = LIP) 546 U/L 73.0-393.0 H IBBAZHVUL6605-68-17 02:25:00* Test Item Value Reference Range Interpretation Comments MAGNESIUM (test code = MAG) 2.0 mg/dL 1.8-2.4 N [id number] 00:08:00* Test Item Value Reference Range Interpretation Comments GLUBED (test code = GLUBED) 159 mg/dL 74-106 H Performed by certified certifed refrigeration operator at [facility] FBJNAJ8270-18-44 17:53:00* Test Item Value Reference Range Interpretation Comments GLUBED (test code = GLUBED) 139 mg/dL 74-106 H Performed by certified certifed refrigeration operator at [facility] SPPYLE8931-26-38 11:57:00* Test Item Value Reference Range Interpretation Comments GLUBED (test code = GLUBED) 160 mg/dL 74-106 H Performed by certified certifed refrigeration operator at [facility]~ ACUTE HEPATITIS [id number] 08:09:00* Test Item Value Reference Range Interpretation [...] with a HCV Nucleic Acid Amplification test (247252).Performed At: [facility] [address] [id number] Jadon Carvalho MD Ph:[phone] ZXEJQW1924-98-88 08:07:00* Test Item Value Reference Range Interpretation Comments GLUBED (test code = GLUBED) 166 mg/dL 74-106 H Performed by certified certifed refrigeration operator [facility]~ RJTZCM6272-33-61 05:39:00* Test Item Value Reference Range Interpretation Comments GLUBED (test code = GLUBED) 152 mg/dL 74-106 H Performed by certified certifed refrigeration operator [facility]~ COMPREHENSIVE METABOLIC WPKNG0681-05-94 03:05:00* Test Item Value Reference Range Interpretation [...] reference range due to change in reagent. [id number] 03:05:00* Test Item Value Reference Range Interpretation Comments LIPASE (test code = LIP) 1815 U/L 73.0-393.0 H [id number] 03:05:00* Test Item Value Reference Range Interpretation Comments MAGNESIUM (test code = MAG) 1.9 mg/dL 1.8-2.4 N CBC W/AUTO [id number] 02:42:00* Test Item Value Reference Range Interpretation [...] DIFF REQUIRED (test code = MDIFF) NO YFGHTB5946-65-04 00:19:00* Test Item Value Reference Range Interpretation Comments GLUBED (test code = GLUBED) 197 mg/dL 74-106 H Performed by certified certifed refrigeration operator [facility]~ XXAXYK9310-27-05 20:25:00* Test Item Value Reference Range Interpretation Comments GLUBED (test code = GLUBED) 214 mg/dL 74-106 H Performed by certified certifed refrigeration operator [facility]~ [id number] 18:18:00* Test Item Value Reference Range Interpretation Comments GLUBED (test code = GLUBED) 234 mg/dL 74-106 H Performed by certified certifed refrigeration operator at [facility] HGCRRM4620-62-98 12:02:00* Test Item Value Reference Range Interpretation Comments GLUBED (test code = GLUBED) 215 mg/dL 74-106 H Performed by certified certifed refrigeration operator at [facility] [id number] 08:01:00* Test Item Value Reference Range Interpretation Comments GLUBED (test code = GLUBED) 203 mg/dL 74-106 H Performed by certified certifed refrigeration operator at [facility] COMPREHENSIVE METABOLIC [id number] 07:38:00* Test Item Value Reference Range Interpretation [...] This LDL result is a direct measurement.========= ELQFBF6563-22-87 07:38:00* Test Item Value Reference Range Interpretation Comments LIPASE (test code = LIP) 89334 U/L 73.0-393.0 H THYROID STIMULATING [id number] 07:38:00* Test Item Value Reference Range Interpretation Comments THYROID STIMULATING HORMONE (test code = TSH) 2.460 uIU/mL 0.36-3.7 4 N TSH REFERENCE RANGES: EUTHYROID: 0.35 - 4.3 mIU/mL HYPO : > 5.5 mIU/mL HYPER : < 0.35 mIU/mL [id number] 07:17:00* Test Item Value Reference Range Interpretation Comments GLYCOSYLATED HEMOGLOBIN (HA1C) (test code = GLYHGB) 9.0 % HbA1 SUGGESTED DIAGNOSIS: HbA1C (%) Diabetic >6.4Prediabetes 5.7 - 6.4Normal <5.7 ESTIMATED AVERAGE GLUCOSE (test code = EAG) 212 MG/DL WNDJPQD9604-94-56 07:17:00* Test Item Value Reference Range Interpretation Comments AMMONIA (test code = AMM) 66 umol/L 11-32 H CBC W/AUTO [id number] 07:06:00* Test Item Value Reference Range Interpretation [...] 0.00 K/mm3 0.0-0.1 N - US ABDOMEN XLOYTJMG8583-11-97 07:05:00 Name: DEANDRE PHILIP [facility] : 1985 Age/S: 34 / M [address] Unit #: [id number] Loc: [place] [address] Phys: Kasey Heller MD Acct: [id number] Dis Date: Status: ADM IN PHONE #: [phone] Exam Date: 06/12/2019 0013 FAX #: [phone] Reason: Elevated liapse ,ammonia EXAMS: CPT CODE: [id number] US ABDOMEN COMPLETE 39271 HISTORY: Elevated lipase and pneumonia. COMPARISON: CT [...] Kasey Heller MD Technologist: KENNEDI RUSH RDMS Trnmib Date/Time: 06/13/2019 (704) t.[email or web address].TH4 Orig Print D/T: S: 06/13/2019 (707) Probe: PAGE 1 Signed Report CBC W/AUTO [id number] 06:59:00* Test Item Value Reference Range Interpretation [...] # (test code = BA#) K/mm3 0.0-0.2 [id number] 05:00:00* Test Item Value Reference Range Interpretation Comments GLUBED (test code = GLUBED) 205 mg/dL 74-106 H Performed by certified certifed refrigeration operator at [facility] [id number] 00:54:00* Test Item Value Reference Range Interpretation Comments GLUBED (test code = GLUBED) 248 mg/dL 74-106 H Performed by certified certifed refrigeration operator at [facility] OYEYPU0130-11-21 00:54:00* Test Item Value Reference Range Interpretation Comments GLUBED (test code = GLUBED) 248 mg/dL 74-106 H Performed by certified certifed refrigeration operator at [facility] [id number] 20:59:00* Test Item Value Reference Range Interpretation Comments GLUBED (test code = GLUBED) 192 mg/dL 74-106 H Performed by certified certifed refrigeration operator at [facility] ZMQCAC7026-03-97 17:39:00* Test Item Value Reference Range Interpretation Comments GLUBED (test code = GLUBED) 175 mg/dL 74-106 H Performed by certified certifed refrigeration operator at [facility] PPVLDSM5480-01-41 15:21:00* Test Item Value Reference Range Interpretation Comments AMMONIA (test code = AMM) 120 umol/L 11-32 H IQQMHDNXTQ6653-26-26 15:18:00* Test Item Value Reference Range Interpretation Comments PHOSPHORUS (test code = PHOS) 3.7 mg/dL 2.5-4.9 N [id number] 15:18:00* Test Item Value Reference Range Interpretation Comments MAGNESIUM (test code = MAG) 2.1 mg/dL 1.8-2.4 N FOLIC [id number] 15:18:00* Test Item Value Reference Range Interpretation Comments FOLIC ACID (test code = FOL) 19.6 ng/mL 3.10-17.50 H [id number] 14:56:00* Test Item Value Reference Range Interpretation Comments GLUBED (test code = GLUBED) 213 mg/dL 74-106 H Performed by certified certifed refrigeration operator at [facility] DRUGS OF ABUSE SCREEN [id number] 14:54:00* Test Item Value Reference Range Interpretation [...] code = [place]) NEGATIVE <300 ng/mL PROTHROMBIN [id number] 14:52:00* Test Item Value Reference Range Interpretation [...] (2.5-3.5) IS PATIENT ON ANTICOAGULANTS? NTHROMBOPLASTIN TIME [id number] 14:52:00* Test Item Value Reference Range Interpretation Comments THROMBOPLASTIN TIME PARTIAL (test code = PTT) 34.7 seconds 23.0-37. 0 N IS PATIENT ON ANTICOAGULANTS? NDRUGS OF ABUSE SCREEN [id number] 14:40:00* Test Item Value Reference Range Interpretation [...] 84-246 N ADD ON- CT ABD PELVIS W/[id number] 10:38:00 Name: TAMERADEANDRE [facility] : 1985 Age/S: 34 [facility] [address] [facility]: [id number] Loc: [place] [address] Phys: Papa Roberts MD Acct: [id number] Dis Date: Status: REG ER PHONE #: [phone] Exam Date: 06/12/2019 0941 FAX #: [phone] Reason: RUQ abdominal pain EXAMS: CPT CODE: [id number] CT ABD PELVIS W/CONT 99146 REASON FOR EXAM: RUQ abdominal pain EXAM [...] Signed Report ( CONTINUED) Name: DEANDRE PHILIP [facility] : 1985 Age/S: 34 / M [address] nit #: [id number] Loc: [place] [address] Phys: Papa Roberts MD Acct: [id number] Dis Date: Status: REG ER PHONE #: [phone] Exam Date: 06/12/2019 0941 FAX #: [phone] Reason: RUQ abdominal pain EXAMS: CPT CODE: [id number] CT ABD PELVIS W/CONT 93977 <Continued> IMPRESSION: Findings suggest mild pancreatitis involving the head versus duodenitis involving the third and fourth segments of the duodenum. However no duodenal mass is seen and there is no evidence of pancreatic necrosis or fluid collection. Hepatomegaly with hepatic s teatosis. Location: [facility] at 1038 Reported and signed by: Jonathan Chandra MD CC: Papa Roberts MD Technologist:Kat Greene,RT(R),CT CTDI: DLP: Trnscb Date/Time: 06/12/2019 (1038) t.SDR.RR31 Orig Print D/T: S: 06/12/2019 (9559) PAGE 2 S igned Report BASIC METABOLIC [id number] 09:36:00* Test Item Value Reference Range Interpretation [...] CA) 9.0 mg/dL 8.5-10.1 N HEPATIC FUNCTION [id number] 09:36:00* Test Item Value Reference Range Interpretation [...] reference range due to change in reagent. [id number] 09:36:00* Test Item Value Reference Range Interpretation Comments LIPASE (test code = LIP) 4321 U/L 73.0-393.0 H [id number]-[id number] 09:36:00* Test Item Value Reference Range Interpretation Comments TROPONIN-I (test code = TROPI) <0.015 ng/mL 0-0.045 N URINALYSIS [id number] 09:13:00* Test Item Value Reference Range Interpretation [...] #/LPF FEW Urine Source? Clean CatchBASIC METABOLIC [id number] 09:07:00* Test Item Value Reference Range Interpretation [...] CA) 9.0 mg/dL 8.5-10.1 N HEPATIC FUNCTION [id number] 09:07:00* Test Item Value Reference Range Interpretation [...] reference range due to change in reagent. [id number] 09:07:00* Test Item Value Reference Range Interpretation Comments LIPASE (test code = LIP) 4321 U/L 73.0-393.0 H [id number] 09:07:00* Test Item Value Reference Range Interpretation Comments TROPONIN-I (test code = TROPI) <0.015 ng/mL 0-0.045 N CBC W/O [id number] 08:50:00* Test Item Value Reference Range Interpretation [...] MPV) 10.2 fL 6.7-11.0 N CBC W/O [id number] 08:48:00* Test Item Value Reference Range Interpretation [...] VOLUME (test code = MPV) fL 6.7-11.0 RNAJHN5100-14-02 11:23:00* Test Item Value Reference Range Interpretation Comments GLUBED (test code = GLUBED) 174 mg/dL 74-106 H Performed by certified certifed refrigeration operator at [facility] [id number] 08:05:00* Test Item Value Reference Range Interpretation Comments GLUBED (test code = GLUBED) 123 mg/dL 74-106 H Performed by certified certifed refrigeration operator at [facility] BASIC METABOLIC [id number] 07:19:00* Test Item Value Reference Range Interpretation [...] code = CA) 9.0 mg/dL 8.5-10.1 N [id number] 07:19:00* Test Item Value Reference Range Interpretation Comments LIPASE (test code = LIP) 174 U/L 73.0-393.0 N CBC W/AUTO [id number] 06:35:00* Test Item Value Reference Range Interpretation [...] DIFF REQUIRED (test code = MDIFF) NO [id number] 20:15:00* Test Item Value Reference Range Interpretation Comments GLUBED (test code = GLUBED) 193 mg/dL 74-106 H Performed by certified certifed refrigeration operator at [facility] [id number] 16:09:00* Test Item Value Reference Range Interpretation Comments GLUBED (test code = GLUBED) 149 mg/dL 74-106 H Performed by certified certifed refrigeration operator at [facility] - US ABDOMEN [id number] 14:18:00 Name: DEANDRE PHILIP [facility] : 1985 Age/S: 34 / M [address] [facility] Unit #: [id number] Loc: [place] [address] Phys: Nehemiah Alba NP Acct: [id number] Dis Date: Status: ADM IN PHONE #: [phone] Exam Date: 04/12/2019 1408 FAX #: [phone] Reason: ABDOMINAL PAIN EXAMS: CPT CODE: [id number] US ABDOMEN LTD 36520 REASON FOR EXAM: ABDOMINAL PAIN EXAM ORDER DATE: 04/12/2019 9:52 AM Attending Britany: Nehemiah Alba NP PROCEDURE: - US ABDOMEN LTD Comparison: CT of the abdomen and pelvis the previous night FINDINGS/ IMPRESSION: Visualized portion of the pancreas appears to be within normal limits. Hepatic parenchyma is hyperechoic which likely represents steatosis. Location: [facility] at 1418 Reported and signed by: Jonathan Chandra MD CC: Nehemiah Alba LINING CLOSER; Matt Alexandre MD Technologist: ZEN MIRANDA RT(R),RD Trnmib Date/Time: 04/12/2019 (1418) t.MARIBELR.RR31 Orig Print D/T: S: 04/12/2019 (9894) Probe: PAGE 1 Signed Report - US ABDOMEN [id number] 14:18:00 Name: DEANDRE PHILIP [facility] : 1985 Age/S: 34 / M [address] Unit #: [id number] Loc: [place] [address] Phys: Michelle Alba LINING CLOSER Acct: [id number] Di s Date: 20190413 Status: DIS IN PHONE #: Exam Date: 04/12/2019 1403 FAX #: Reason: ABDOMINAL PAIN EXAMS: CPT CODE: [id number] US ABDOMEN LTD 30151 REASON FOR EXAM: ABDOMINAL PAIN EXAM ORDER DATE: 04/12/2019 9:52 AM At tending M.D.: Nehemiah Alab NP PROCEDURE: - US ABDOMEN LTD Comparison: CT of the abdomen and pelvis the previous night FINDINGS/ IMPRESSION: Visualized portion of the pancreas appe ars to be within normal limits. Hepatic parenchyma is hyperechoic which likely represents steatosis. Location: [facility] Electro nically Signed by Jonathan Chandra MD on 04/12/2019 at 1418 R eported and signed by: Jonathan Chandra MD CC: Nehemiah Alba; Matt Alexandre MD Technologist: ZEN MIRANDA RT(R),RD MS Trnscb Date/Time: 04/12/2019 (1418) t.SDR.RR31 Orig Print D/T: S: 04/12/2019 (8189) Probe: PAGE 1 Signed Report [id number] 12:45:00* Test Item Value Reference Range Interpretation Comments LIPASE (test code = LIP) 352 U/L 73.0-393.0 N [id number] 11:36:00* Test Item Value Reference Range Interpretation Comments GLUBED (test code = GLUBED) 171 mg/dL 74-106 H Performed by certified certifed refrigeration operator at [facility] [id number] 10:38:00* Test Item Value Reference Range Interpretation [...] This LDL result is a direct measurement.========= [id number] 10:29:00* Test Item Value Reference Range Interpretation Comments ALCOHOL (test code = ALC) < 3 mg/dL 0.0-3.0 N -- INTERPRETIVE DATA NOTE: POSITIVE SCREENING RESULTS SHOULD BE CONSIDERED PRESUMPTIVE.WHEN COLLECTED FOR MEDICAL PURPOSES ONLY. SPECIMEN WILL NOTBE COLLECTED BY CHAIN OF CUSTODY.IF A CONFIRMATION OF POSITIVE RESULTS IS DESIRED, ACONFIRMATION TEST MUST BE REQUESTED BY THE PHYSICIAN AT ANADDITIONAL CHARGE TO THE PATIENT. [id number] 08:12:00* Test Item Value Reference Range Interpretation Comments GLUBED (test code = GLUBED) 140 mg/dL 74-106 H Performed by certified certifed refrigeration operator at [facility] COMPREHENSIVE METABOLIC [id number] 07:50:00* Test Item Value Reference Range Interpretation [...] reference range due to change in reagent. [id number] 07:50:00* Test Item Value Reference Range Interpretation Comments PHOSPHORUS (test code = PHOS) 3.8 mg/dL 2.5-4.9 N [id number] 07:50:00* Test Item Value Reference Range Interpretation Comments MAGNESIUM (test code = MAG) 2.0 mg/dL 1.8-2.4 N COMPREHENSIVE METABOLIC [id number] 07:07:00* Test Item Value Reference Range Interpretation [...] reference range due to change in reagent. [id number] 07:07:00* Test Item Value Reference Range Interpretation Comments PHOSPHORUS (test code = PHOS) 3.8 mg/dL 2.5-4.9 N [id number] 07:07:00* Test Item Value Reference Range Interpretation Comments MAGNESIUM (test code = MAG) 2.0 mg/dL 1.8-2.4 N LACTIC DEHYDROGENASE(LDH)2019-04-12 06:54:00* Test Item Value Reference Range Interpretation Comments LACTIC DEHYDROGENASE(LDH) (test code = LDH) 102 IUnit/L 84-246 N [id number] 04:40:00* Test Item Value Reference Range Interpretation Comments TROPONIN-I (test code = TROPI) <0.015 ng/mL 0-0.045 N DRUGS OF ABUSE SCREEN [id number] 02:03:00* Test Item Value Reference Range Interpretation [...] NEGATIVE <300 ng/mL DRUGS OF ABUSE SCREEN [id number] 01:33:00* Test Item Value Reference Range Interpretation [...] code = [place]) <300 ng/mL BASIC METABOLIC [id number] 00:47:00* Test Item Value Reference Range Interpretation [...] CA) 8.4 mg/dL 8.5-10.1 L HEPATIC FUNCTION [id number] 00:47:00* Test Item Value Reference Range Interpretation [...] reference range due to change in reagent. [id number] 00:47:00* Test Item Value Reference Range Interpretation Comments LIPASE (test code = LIP) 552 U/L 73.0-393.0 H [id number] 00:47:00* Test Item Value Reference Range Interpretation Comments TROPONIN-I (test code = TROPI) <0.015 ng/mL 0-0.045 N - CT ABD PELVIS [id number] 23:35:00 Name: DEANDRE PHILIP [facility] : 1985 Age/S: 34 / M [address] [facility] Unit #: [id number] Loc: [place] [address] Phys: Mj Borges [employer] Acct: [id number] Dis Date: Status: REG ER PHONE #: [phone] Exam Date: 04/11/2019 2310 FAX #: [phone] Reason: ABD PAIN EXAMS: CPT CODE: [id number] CT ABD PELVIS W/CONT 35677 CT ABDOMEN AND PELVIS ( with intravenous [...] 1 Signed Report (CONTINUED) Name: DEANDRE TRENT [facility] : 1985 A ge/S: 34 / M [address] Unit #: [id number] Loc : [place] [address] Phys: Mj Borges [employer] Acct: [id number] Dis Date: Status: REG ER PHONE #: [phone] Exam Date: 04/11/2019 2310 FAX #: [phone] Reason: ABD PAIN EXAMS: CPT CODE: [id number] CT ABD PELVIS W/CONT 17257 <Continued> at 2335 Reported and signed by: Greg Baez M.D. CC: Andres Blanco MD; Mj Borges NP Technologist:DEANDRA YA, RT CTDI: DLP: Trnscb Date/Time: 04/11/2019 (2335) [email or web address] Orig Print D/T: S: 04/11/2019 (2332) PAGE 2 Signed Report - CT ABD PELVIS [id number] 23:35:00 Name: DEANDRE PHILIP [facility] : 1985 Age/S: 34 / M [address] Unit #: [id number] Loc: [place] [address] Phys: Mj Borges [employer] Acct: [id number] Dis Date: 04/13/2019 Status: DIS IN PHONE #: [phone] Exam Date: 04/11/20190 FAX #: [phone] Reason: ABD PAIN EXAMS: CPT CODE: [id number] CT ABD PELVIS W/CONT [address]305 CT ABDOMEN AND PELVIS ( with intravenous [...] 1 Signed Report (CONTINUED) Name: DEANDRE PHILIP [facility] : 1985 Age/S: 34 / M [address] [facility] Unit #: [id number] Loc: [place] [address] Phys: Mj Borges [employer] Acct: [id number] Dis Date: 04/13/2019 Status: DIS IN PHONE #: [phone] Exam Date: 04/11/2019 2310 FAX #: [phone] Reason: ABD PAIN EXAMS: CPT CODE: [id number] CT ABD PELVIS W/CONT 95413 <Continued> at 2335 Reported and signed by: Greg Baez M.D. CC: Andres Blanco MD; Mj Borges NP Technologist:RT MERVIN CTDI: DLP: Trnscb Date/Time: 04/11/2019 (1885) AlbertoRK5 Orig Print D/T: S: 04/11/2019 (6320) PAGE 2 Signed Report BASIC METABOLIC [id number] 23:12:00* Test Item Value Reference Range Interpretation [...] CA) 8.4 mg/dL 8.5-10.1 L HEPATIC FUNCTION [id number] 23:12:00* Test Item Value Reference Range Interpretation [...] reference range due to change in reagent. [id number] 23:12:00* Test Item Value Reference Range Interpretation Comments LIPASE (test code = LIP) 552 U/L 73.0-393.0 H [id number] 23:12:00* Test Item Value Reference Range Interpretation Comments TROPONIN-I (test code = TROPI) <0.015 ng/mL 0-0.045 N BASIC METABOLIC [id number] 22:55:00* Test Item Value Reference Range Interpretation [...] code = CA) mg/dL 8.5-10.1 HEPATIC FUNCTION [id number] 22:55:00* Test Item Value Reference Range Interpretation [...] TOTAL (test code = ALKP) IUnit/L 45-117 [id number] 22:55:00* Test Item Value Reference Range Interpretation Comments LIPASE (test code = LIP) U/L 73.0-393.0 [id number] 22:55:00* Test Item Value Reference Range Interpretation Comments TROPONIN-I (test code = TROPI) ng/mL 0-0.045 URINALYSIS [id number] 22:51:00* Test Item Value Reference Range Interpretation [...] #/LPF FEW Urine Source? Clean CatchCBC W/O [id number] 22:37:00* Test Item Value Reference Range Interpretation [...] MPV) 10.2 fL 6.7-11.0 N CBC W/O [id number] 22:36:00* Test Item Value Reference Range Interpretation [...] VOLUME (test code = MPV) fL 6.7-11.0 [id number] 08:04:00* Test Item Value Reference Range Interpretation Comments GLUBED (test code = GLUBED) 137 mg/dL 74-106 H Performed by certified certifed refrigeration operator at [facility] BASIC METABOLIC [id number] 05:15:00* Test Item Value Reference Range Interpretation [...] CA) 9.2 mg/dL 8.5-10.1 N BASIC METABOLIC [id number] 05:10:00* Test Item Value Reference Range Interpretation [...] code = CA) mg/dL 8.5-10.1 CBC W/AUTO [id number] 04:49:00* Test Item Value Reference Range Interpretation [...] code = NRBC#) 0.00 K/mm3 0.0-0.1 N [id number] 21:26:00* Test Item Value Reference Range Interpretation Comments GLUBED (test code = GLUBED) 242 mg/dL 74-106 H Performed by certified certifed refrigeration operator at [facility] [id number] 16:25:00* Test Item Value Reference Range Interpretation Comments GLUBED (test code = GLUBED) 184 mg/dL 74-106 H Performed by certified certifed refrigeration operator at [facility] [id number] 11:17:00* Test Item Value Reference Range Interpretation Comments GLUBED (test code = GLUBED) 223 mg/dL 74-106 H Performed by certified certifed refrigeration operator at [facility] [id number] 07:51:00* Test Item Value Reference Range Interpretation Comments GLUBED (test code = GLUBED) 229 mg/dL 74-106 H Performed by certified certifed refrigeration operator at [facility] [id number] 21:05:00* Test Item Value Reference Range Interpretation Comments GLUBED (test code = GLUBED) 156 mg/dL 74-106 H Performed by certified certifed refrigeration operator at [facility] [id number] 18:34:00* Test Item Value Reference Range Interpretation Comments GLUBED (test code = GLUBED) 199 mg/dL 74-106 H Performed by certified certifed refrigeration operator at [facility] [id number] 18:34:00* Test Item Value Reference Range Interpretation Comments GLUBED (test code = GLUBED) 213 mg/dL 74-106 H Performed by certified certifed refrigeration operator at [facility] [id number] 08:41:00* Test Item Value Reference Range Interpretation Comments GLUBED (test code = GLUBED) 128 mg/dL 74-106 H Performed by certified certifed refrigeration operator at [facility] [id number] 21:11:00* Test Item Value Reference Range Interpretation Comments GLUBED (test code = GLUBED) 245 mg/dL 74-106 H Performed by certified certifed refrigeration operator at [facility] [id number] 16:43:00* Test Item Value Reference Range Interpretation Comments GLUBED (test code = GLUBED) 179 mg/dL 74-106 H Performed by certified certifed refrigeration operator at [facility] [id number] 12:19:00* Test Item Value Reference Range Interpretation Comments GLUBED (test code = GLUBED) 147 mg/dL 74-106 H Performed by certified certifed refrigeration [facility] [id number] 08:25:00* Test Item Value Reference Range Interpretation Comments GLUBED (test code = GLUBED) 138 mg/dL 74-106 H [facility] AC[facility]ITIS [id number] 08:10:00* Test Item Value Reference Range Interpretation [...] with a HCV Nucleic Acid Amplification test (764005).Performed At: [facility] [address] [id number] Jadon Carvalho MD Ph:[phone] [id number] 20:11:00* Test Item Value Reference Range Interpretation Comments GLUBED (test code = GLUBED) 216 mg/dL 74-106 H Performed by certified certifed refrigeration [facility] [id number] 16:53:00* Test Item Value Reference Range Interpretation Comments GLUBED (test code = GLUBED) 142 mg/dL 74-106 H Performed by certified certifed refrigeration [facility] [id number] 12:02:00* Test Item Value Reference Range Interpretation Comments GLUBED (test code = GLUBED) 210 mg/dL 74-106 H Performed by certified certifed refrigeration operator at [facility] - US ABDOMEN [id number] 10:41:00 Name: DEANDRE PHILIP [facility] : 1985 Age/S: 34 / M [address] Unit #: [id number] Loc: [place] [address] Phys: Ana Pearl MD Acct: [id number] Dis Date: Status: ADM IN PHONE #: [phone] Exam Date: 03/07/2019 1036 FAX #: [phone] Reason: cirrhosis? EXAMS: CPT CODE: [id number] US ABDOMEN LTD 48262 REASON FOR EXAM: cirrhosis? EXAM ORDER DATE: 03/07/2019 8:56 AM Attending MTroyD.: Ana Pearl MD PROCEDURE: - US ABDOMEN [...] 1 Signed Report (CONTINUED) Name: DEANDRE PHILIP [facility] : 1985 Age/S: 34 / M [address] [facility] Unit #: [id number] Loc: [place] [address] Phys: Ana Pearl MD Acct: [id number] Dis Date: Status: ADM IN PHONE #: [phone] Exam Date: 03/07/2019 1036 FAX #: [phone] Reason: cirrhosis? EXAMS: CPT CODE: [id number] US ABDOMEN LTD 80086 <Continued> IMPRESSION: Hepatomegaly with hepatic steatosis. Prior cholecystectomy. Location: [facility] Electronically Si gned by Jonathan Chandra MD on 03/07/2019 at 1041 Reported an d signed by: Jonathan Chandra MD CC: Shayy Chamberlain MD; Ana Pearl MD Technologist: DONNA LUONG RT(R), SHAN Trnmib Date/Time: 03/07/2019 (1041) t.[email or web address].[email or web address] Orig Print D/T: S: 03/07/2019 (1044) Probe: PAGE 2 Signed Report HEPATIC FUNCTION [id number] 09:37:00* Test Item Value Reference Range Interpretation [...] reference range due to change in reagent. [id number] 08:23:00* Test Item Value Reference Range Interpretation Comments GLUBED (test code = GLUBED) 105 mg/dL 74-106 N Performed by certified certifed refrigeration operator at [facility] BASIC METABOLIC [id number] 05:51:00* Test Item Value Reference Range Interpretation [...] CA) 8.9 mg/dL 8.5-10.1 N BASIC METABOLIC [id number] 05:42:00* Test Item Value Reference Range Interpretation [...] code = CA) mg/dL 8.5-10.1 CBC W/AUTO [id number] 05:37:00* Test Item Value Reference Range Interpretation [...] code = NRBC#) 0.00 K/mm3 0.0-0.1 N [id number] 16:28:00* Test Item Value Reference Range Interpretation Comments GLUBED (test code = GLUBED) 184 mg/dL 74-106 H Performed by certified certifed refrigeration operator at [facility] [id number] 12:36:00* Test Item Value Reference Range Interpretation Comments GLUBED (test code = GLUBED) 261 mg/dL 74-106 H Performed by certified certifed refrigeration operator at [facility] [id number] 07:26:00* Test Item Value Reference Range Interpretation Comments GLUBED (test code = GLUBED) 194 mg/dL 74-106 H Performed by certified certifed refrigeration operator at [facility] [id number] 20:23:00* Test Item Value Reference Range Interpretation Comments GLUBED (test code = GLUBED) 266 mg/dL 74-106 H Performed by certified certifed refrigeration operator at [facility] [id number] 16:23:00* Test Item Value Reference Range Interpretation Comments GLUBED (test code = GLUBED) 292 mg/dL 74-106 H Performed by certified certifed refrigeration operator at [facility] [id number] 16:23:00* Test Item Value Reference Range Interpretation Comments GLUBED (test code = GLUBED) 302 mg/dL 74-106 H Performed by certified certifed refrigeration operator at [facility] [id number] 11:24:00* Test Item Value Reference Range Interpretation Comments GLUBED (test code = GLUBED) 218 mg/dL 74-106 H Performed by certified certifed refrigeration operator at [facility] [id number] 07:51:00* Test Item Value Reference Range Interpretation Comments GLUBED (test code = GLUBED) 158 mg/dL 74-106 H Performed by certified certifed refrigeration operator at [facility] BASIC METABOLIC [id number] 06:00:00* Test Item Value Reference Range Interpretation [...] CA) 8.9 mg/dL 8.5-10.1 N BASIC METABOLIC [id number] 05:54:00* Test Item Value Reference Range Interpretation [...] code = CA) mg/dL 8.5-10.1 CBC W/AUTO [id number] 05:33:00* Test Item Value Reference Range Interpretation [...] code = NRBC#) 0.00 K/mm3 0.0-0.1 N [id number] 21:10:00* Test Item Value Reference Range Interpretation Comments GLUBED (test code = GLUBED) 283 mg/dL 74-106 H Performed by certified certifed refrigeration operator at [facility] [id number] 16:52:00* Test Item Value Reference Range Interpretation Comments GLUBED (test code = GLUBED) 197 mg/dL 74-106 H Performed by certified certifed refrigeration operator at [facility] [id number] 11:42:00* Test Item Value Reference Range Interpretation Comments GLUBED (test code = GLUBED) 187 mg/dL 74-106 H Performed by certified certifed refrigeration operator at [facility] [id number] 08:01:00* Test Item Value Reference Range Interpretation Comments GLUBED (test code = GLUBED) 88 mg/dL 74-106 N Performed by certified certifed refrigeration operator at [facility] [id number] 20:51:00* Test Item Value Reference Range Interpretation Comments GLUBED (test code = GLUBED) 267 mg/dL 74-106 H Performed by certified certifed refrigeration operator at [facility] [id number] 16:28:00* Test Item Value Reference Range Interpretation Comments GLUBED (test code = GLUBED) 234 mg/dL 74-106 H Performed by certified certifed refrigeration operator at [facility] [id number] 11:54:00* Test Item Value Reference Range Interpretation Comments GLUBED (test code = GLUBED) 157 mg/dL 74-106 H Performed by certified certifed refrigeration operator at [facility] [id number] 08:23:00* Test Item Value Reference Range Interpretation Comments GLUBED (test code = GLUBED) 144 mg/dL 74-106 H Performed by certified certifed refrigeration operator at [facility] BASIC METABOLIC [id number] 06:18:00* Test Item Value Reference Range Interpretation [...] CA) 8.2 mg/dL 8.5-10.1 L CBC W/AUTO [id number] 06:13:00* Test Item Value Reference Range Interpretation [...] (test code = MDIFF) NO BASIC METABOLIC [id number] 06:13:00* Test Item Value Reference Range Interpretation [...] CALCIUM (test code = CA) mg/dL 8.5-10.1 [id number] 20:14:00* Test Item Value Reference Range Interpretation Comments GLUBED (test code = GLUBED) 182 mg/dL 74-106 H Performed by certified certifed refrigeration operator at [facility] [id number] 15:59:00* Test Item Value Reference Range Interpretation Comments GLUBED (test code = GLUBED) 223 mg/dL 74-106 H Performed by certified certifed refrigeration operator at [facility] [id number] 11:35:00* Test Item Value Reference Range Interpretation Comments GLUBED (test code = GLUBED) 164 mg/dL 74-106 H Performed by certified certifed refrigeration operator at [facility] [id number] 07:50:00* Test Item Value Reference Range Interpretation Comments GLUBED (test code = GLUBED) 113 mg/dL 74-106 H Performed by certified certifed refrigeration operator at [facility] BASIC METABOLIC [id number] 05:33:00* Test Item Value Reference Range Interpretation [...] CA) 9.0 mg/dL 8.5-10.1 N CBC W/AUTO [id number] 05:29:00* Test Item Value Reference Range Interpretation [...] code = NRBC#) 0.00 K/mm3 0.0-0.1 N [id number] 20:55:00* Test Item Value Reference Range Interpretation Comments GLUBED (test code = GLUBED) 187 mg/dL 74-106 H Performed by certified certifed refrigeration operator at [facility] [id number] 16:24:00* Test Item Value Reference Range Interpretation Comments GLUBED (test code = GLUBED) 274 mg/dL 74-106 H Performed by certified certifed refrigeration [facility] - DUP AB/PEL/SC [id number] 09:07:00 Name: DEANDRE PHILIP [facility] : 1985 Age/S: 34 / M [address] [facility] Unit #: [id number] Loc: [place] [address] Phys: Cheryl Lawton [employer] Acct: [id number] Dis Date: Status: REG ER PHONE #: [phone] Exam Date: 03/01/2019 0840 FAX #: [phone] Reason: SCROTAL PAIN EXAMS: CPT CODE: [id number] DUP AB/PEL/SC COMP 53626 HISTORY: Testicular pain. COMPARISON: None available. Bilateral testicular ultrasound with color and Doppler flow and grayscale imaging. Location: [facility]. Low-resistance arterial Doppler flow with [...] 1 Signed Report (CONTINUED) Name: DEANDRE PHILIP [facility] : 1985 Age/S: 34 / M [address] Unit #: [id number] Loc: [place] [address] Phys: Cheryl Lawton [employer] Acct: [id number] Dis Date: Status: REG ER PHONE #: [phone] Exam Date: 03/01/2019 08 FAX #: [phone] Reason: SCROTAL PAIN EXAMS: CPT CODE: [id number] DUP AB/PEL/SC COMP 35728 <Continued> CC: Cheryl Lawton NP Technologist: ZEN MIRANDA RT(R),RDMS Trnscb Date/Time: 03/01/2019 (906) t.SDR.TH4 Orig Print D/T: S: 03/01/2019 (11) Probe: PAGE 2 Signed Report - US SCROTUM AND [id number] 09:07:00 Name: DEANDRE PHILIP [facility] : 1985 Age/S: 34 / M [address] Unit #: [id number] Loc: [place] [address] Phys: Kely Lawton [employer] Acct: [id number] Di s Date: Status: REG ER PHONE #: Exam Date: 03/01/2019 0889 FAX #: Reason: SCROTAL PAIN EXAMS: CPT CODE: [id number] US SCROTUM AND CNTS 08028 HISTORY: Testicular pain. COMPARISON: None available. Bilateral [...] Signed Report (CONTINUED) N jesenia: DEANDRE PHILIP [facility] : 0 1985 Age/S: 34 / M [address] [facility] Unit #: [id number] Loc: [place] [address] Phys: Cheryl Lawton [employer] Acct: [id number] Dis D ate: Status: REG ER PHONE #: [phone] Exam Date: 03/01/2019 0840 FAX #: [phone] Reason: SCROTAL PAIN EXAMS: CPT CODE: [id number] US SCROTUM AND C NTS 90532 <Continued> CC: Cheryl Lawton [employer] Technologist: ZEN MIRANDA RT(R),RDMS Trnscb Date/Time: 03/01/2019 (906) t.MARIBELR.TH4 Orig Print D/T: S: 03/01/2019 (910) Probe: PAGE 2 Signed Report BASIC METABOLIC [id number] 09:02:00* Test Item Value Reference Range Interpretation [...] CA) 9.2 mg/dL 8.5-10.1 N HEPATIC FUNCTION [id number] 09:02:00* Test Item Value Reference Range Interpretation [...] range due to change in reagent. URINALYSIS [id number] 08:57:00* Test Item Value Reference Range Interpretation [...] #/LPF FEW Urine Source? Clean CatchBASIC METABOLIC [id number] 08:54:00* Test Item Value Reference Range Interpretation [...] code = CA) mg/dL 8.5-10.1 HEPATIC FUNCTION [id number] 08:54:00* Test Item Value Reference Range Interpretation [...] (test code = ALKP) IUnit/L 45-117 URINALYSIS [id number] 08:44:00* Test Item Value Reference Range Interpretation [...] HPF NONE Urine Source? Clean CatchCBC W/O [id number] 08:44:00* Test Item Value Reference Range Interpretation [...] code = MPV) 10.5 fL 6.7-11.0 N [id number] 11:32:00* Test Item Value Reference Range Interpretation Comments GLUBED (test code = GLUBED) 118 mg/dL 74-106 H Performed by certified certifed refrigeration operator at [facility] [id number] 08:55:00* Test Item Value Reference Range Interpretation Comments GLUBED (test code = GLUBED) 103 mg/dL 74-106 N Performed by certified certifed refrigeration operator at [facility] [id number] 02:57:00* Test Item Value Reference Range Interpretation Comments LIPASE (test code = LIP) 251 U/L 73.0-393.0 N [id number] 21:04:00* Test Item Value Reference Range Interpretation Comments GLUBED (test code = GLUBED) 163 mg/dL 74-106 H Performed by certified certifed refrigeration operator at [facility] [id number] 16:08:00* Test Item Value Reference Range Interpretation Comments GLUBED (test code = GLUBED) 124 mg/dL 74-106 H Performed by certified certifed refrigeration operator at [facility] [id number] 11:39:00* Test Item Value Reference Range Interpretation Comments GLUBED (test code = GLUBED) 113 mg/dL 74-106 H Performed by certified certifed refrigeration operator at [facility] [id number] 09:57:00* Test Item Value Reference Range Interpretation Comments LIPASE (test code = LIP) 522 U/L 73.0-393.0 H [id number] 07:58:00* Test Item Value Reference Range Interpretation Comments GLUBED (test code = GLUBED) 128 mg/dL 74-106 H Performed by certified certifed refrigeration operator at [facility] CBC W/AUTO [id number] 03:29:00* Test Item Value Reference Range Interpretation [...] (test code = MDIFF) NO COMPREHENSIVE METABOLIC [id number] 03:13:00* Test Item Value Reference Range Interpretation [...] due to change in reagent. COMPREHENSIVE METABOLIC [id number] 03:07:00* Test Item Value Reference Range Interpretation [...] TOTAL (test code = ALKP) IUnit/L 45-117 [id number] 20:17:00* Test Item Value Reference Range Interpretation Comments GLUBED (test code = GLUBED) 126 mg/dL 74-106 H Performed by certified certifed refrigeration operator at [facility] [id number] 17:47:00* Test Item Value Reference Range Interpretation Comments GLUBED (test code = GLUBED) 129 mg/dL 74-106 H Performed by certified certifed refrigeration operator at [facility] LIPID PROFILE (CORONARY RISK)2018-10-17 13:02:00* Test Item [...] LDL result is a direct measurement.========= LACTIC [id number] 12:56:00* Test Item Value Reference Range Interpretation Comments LACTIC ACID (test code = LACT) 1.2 mmol/L 0.4-1.9 N [id number] 12:06:00* Test Item Value Reference Range Interpretation Comments GLUBED (test code = GLUBED) 115 mg/dL 74-106 H Performed by certified certifed refrigeration operator at [facility] [id number] 11:09:00* Test Item Value Reference Range Interpretation Comments LIPASE (test code = LIP) 727 U/L 73.0-393.0 H [id number] 11:07:00* Test Item Value Reference Range Interpretation Comments GLYCOSYLATED HEMOGLOBIN (HA1C) (test code = GLYHGB) 7.8 % HbA1 4. 8-6.0 H ESTIMATED AVERAGE GLUCOSE (test code = EAG) 177 MG/DL LACTIC [id number] 08:57:00* Test Item Value Reference Range Interpretation Comments LACTIC ACID (test code = LACT) 1.1 mmol/L 0.4-1.9 N [id number] 08:02:00* Test Item Value Reference Range Interpretation Comments GLUBED (test code = GLUBED) 149 mg/dL 74-106 H Performed by certified certifed refrigeration operator at [facility] - CT ABD PELVIS [id number] 05:22:00 Name: DEANDRE PHILIP [facility] : 1985 Age/S: 33 / M [address] [facility] Unit #: [id number] Loc: [place] [place] [address] Phys: Cheryl Lawton LINING CLOSER Acct: [id number] Dis Date: Status: REG ER PHONE #: [phone] Exam Date: 10/17/2018 0500 FAX #: [phone] Reason: abdominal pain EXAMS: CPT CODE: [id number] CT ABD PELVIS W/CONT [address] CT abdomen and pelvis with IV contrast. [...] Signed Rep ort (CONTINUED) Name: DEANDRE PHILIP [facility] : 1985 Age/S: 33 / M [address] [facility] Unit #: [id number] Loc: [place] [address] Phys: Cheryl Lawton NP Acct: [id number] Dis Date: Status: REG ER PHONE #: [phone] Exam Date: 10/17/2018 0500 FAX #: [phone] Reason: abdominal pain EXAMS: CPT CODE: [id number] CT ABD PELVIS W/CONT 39196 <Continued> at 0522 Reported and signed by: Sandee Fowler M.D. CC: Vivienne Madison MD; Cheryl Lawton NP Technologist:RT MERVIN CTDI: DLP: Trnscb Date/Time: 10/17/2018 (05) [email or web address] Orig Print D/T: S: 10/17/2018 (0554) PAGE 2 Signed Report [id number] 05:06:00* Test Item Value Reference Range Interpretation Comments TROPONIN-I (test code = TROPI) <0.015 ng/mL 0-0.045 N LACTIC [id number] 04:48:00* Test Item Value Reference Range Interpretation Comments LACTIC ACID (test code = LACT) 1.0 mmol/L 0.4-1.9 N URINALYSIS [id number] 04:46:00* Test Item Value Reference Range Interpretation [...] FEW #/LPF FEW Urine Source? Clean CatchURINALYSIS [id number] 04:45:00* Test Item Value Reference Range Interpretation [...] HPF NONE Urine Source? Clean CatchBASIC METABOLIC [id number] 04:45:00* Test Item Value Reference Range Interpretation [...] CA) 9.4 mg/dL 8.5-10.1 N HEPATIC FUNCTION [id number] 04:45:00* Test Item Value Reference Range Interpretation [...] reference range due to change in reagent. [id number] 04:45:00* Test Item Value Reference Range Interpretation Comments LIPASE (test code = LIP) 834 U/L 73.0-393.0 H BASIC METABOLIC [id number] 04:38:00* Test Item Value Reference Range Interpretation [...] code = CA) mg/dL 8.5-10.1 HEPATIC FUNCTION [id number] 04:38:00* Test Item Value Reference Range Interpretation [...] TOTAL (test code = ALKP) IUnit/L 45-117 [id number] 04:38:00* Test Item Value Reference Range Interpretation Comments LIPASE (test code = LIP) U/L 73.0-393.0 CBC W/O [id number] 04:22:00* Test Item Value Reference Range Interpretation [...] MPV) 9.6 fL 6.7-11.0 N CBC W/O [id number] 04:20:00* Test Item Value Reference Range Interpretation [...] MPV) fL 6.7-11.0 - XR CHEST 1 [id number] 04:09:00 FAX: Cheryl Lawton NP [place]: St: REG Name: DEANDRE SMITH [facility] : [birth year] Age/S: 33/M [address] [facility] Unit #: [id number] Loc: [place] [address] Phys: Cheryl Lawton NP Acct: [id number] Dis Date: Status: REG ER PHONE #: [phone] Exam Date: 10/17/2018 0355 FAX #: [phone] Reason: ABDOMINAL PAIN EXAMS: CPT CODE: [id number] XR CHEST 1 V 55283 Location: T 18 CHEST X- RAY: AP [...] By: [email or web address] Orig Print D/T: S: 04/2018 (1377) PAGE 1 Signed Repor t POC LACTIC [id number] 04:03:00* Test Item Value Reference Range Interpretation Comments POC LACTIC ACID (test code = POCLAC) 2.37 MMOL/L 0.4-2.2 H Lipid [id number] 07:21:00* Test Item Value Reference Range Interpretation Comments Cholesterol (test code = 2093-3) 244.0 mg/dL <=200.0 H Desirable: < 200.0 mg/dLBorderline: 200 - 240 mg/dLHigh Risk: > 240 mg/dL Triglyceride (test code = 68529036) 990 mg/dL <150 H Normal: < 150.0 mg/dL Borderline: 150-199 mg/dL High: 200-499 mg/dL Very High: >= 500 mg/dL HDL (test code = 2085-9) 31.0 mg/dL See Reference Range Narrative . Increased CHD Risk: < 40.0 mg/dL Decreased CHD Risk: > 60 mg/dL LDL (test code = 16233-7) <100 mg/dL Tr iglyceride value is > 400 mg/dl. Unable to calculate LDL value due to high triglyceride. Lab Interpretation (test code = 49497-1) Abnormal [facility] [id number] 07:21:00* Test Item Value Reference Range Interpretation Comments Sodium (test code = 2951-2) 138 mmol/L 136-145 Potassium (test code = 2823-3) 4.8 mmol/L 3.5-5.1 Chloride (test code = 2075-0) 103 mmol/L 98-107 CO2 (test code = 47984698) 26 mmol/L 21-31 Glucose (test code = 30874079) 148 mg/dL 70-110 H Calcium (test code = 21869141) 9.4 mg/dL 8.6-10.3 Urea Nitrogen (test code = 51081780) 15.0 mg/dL 7-25 Creatinine (test code = 46209570) 0.9 mg/dL 0.7-1.3 Alkaline Phosphatase (test code = 42601455) 77 U/L 34-104 ALT (test code = 99050051) 79 U/L 7-52 H AST (test code = 08802218) 37 U/L 13-39 Total Protein (test code = 2885-2) 6.8 g/dL 6-8.3 GFR, Estimated (test code = 44592390) >90 >=90 mL/min/1.73 m2 Albumin (test code = 66034-9) 4.5 g/dL 4.2-5.5 Anion Gap (test code = 04735110) 9 mmol/L 5-16 Lab Interpretation (test code = 80139-4) [facility]normal [facility] [id number] 15:50:00* Test Item Value Reference Range Interpretation Comments Hemoglobin A1c (test code = 4548-4) 7.6 % 4.3-6.1 H Estimated Average Glucose (test code = 30024231) 171 mg/dL 70-11 0 H Lab Interpretation (test code = 50766-0) Abnormal [facility] VIEWS [id number] 13:59:54IMPRESSION: Scattered degenerative change. No osseous erosion [...] degenerative change. No osseous erosionDictated By: Asael Tinoco MD, 09/13 1:58 PMI have reviewed the study and agree with the findings in this repor t.Signed By: Buddy Davies MD, 09/13/2018 1:59 PMC[facility] HospitalOPHTHALMOLOGY RETINAL [id number] 12:04:34* Test Item Value Reference Range Interpretation Comments RETINAL SCAN-FINAL RESULT (test code = 37825) NORMAL Right Diabetic Retinopathy (test code = 100171) None Right Macular Edema (test code = 60949) None Right Other Suspected Conditions (test code = 38739) None Right Image Quality (test code = 24849) Gradeable Image Left Diabetic Retinopathy (test code = 84252) None Left Macular Edema (test code = 14108) None Left Other Suspected Conditions (test code = 54507) None Left Image Quality (test code = 24840) Gradeable Image VIDA (test code = VIDA) Retinal Study Result for DU CHAUDHARI DEANDREDEANDRE WHITLOCK, reina 33 y/o, M (: 1985, )presented to [facility] on 09-13-2018 for a retinal imaging study [...] signed by Trev Coreas MD, , Taxonomy: [id number] on 09-13-2018 05:04:34 [facility] time. NOTE: Any pathology noted on this diabetic retinal evaluation should be confirmed by an appropriate ophthalmic examination. [facility]
[2019-09-14] MEDS: GEMFIBROZIL 600 MG TAB PO SCH (21:44)
[2019-09-15] VITALS: BP 116/82
--- NOTE | 2019-09-15 00:37 | Progress Note ---
DATE: 09/14/2019 Medicine Progress Note SUBJECTIVE: The patient reports that his abdominal pain has improved tremendously. He agreed to advance his diet to regular solid food. PHYSICAL EXAMINATION: VITAL SIGNS: Temperature 97.8, pulse 86, respiratory rate is 20, his blood pressure 108/81, pulse ox 99% on room air. GENERAL: Not in acute distress. Alert and oriented x3. Cooperative on examination. HEENT: Head is normocephalic and atraumatic. Eyes; pupils are equal, round, and reactive to light bilaterally. Extraocular movements intact bilaterally. Throat; no evidence of erythema or exudates in the posterior pharynx. Has poor dentition. NECK: Supple. Good range of motion. PULMONARY: Clear to auscultation bilaterally. No wheezing, rales, or rhonchi. No crackles appreciated. CARDIOVASCULAR: Positive S1, S2. No murmurs, rubs, or gallops appreciated. ABDOMEN: Soft, nondistended, and nontender to palpation. Bowel sounds present. MUSCULOSKELETAL: Strength is 5/5 throughout. No evidence of any muscle deficits on examination. No weakness appreciated. NEUROLOGICAL: Cranial nerves II through XII grossly intact. No evidence of any neurological deficits on exam. SKIN: Intact. Warm to touch. Good cap refill. PSYCHIATRIC: Normal affect and mood. EXTREMITIES: No edema. Good range of motion throughout LABORATORY DATA: White count 5, hemoglobin 12, hematocrit 36, platelets of 181. Chemistries reviewed, stable. IMPRESSION: 1. Acute on chronic pancreatitis secondary to alcohol abuse and uncontrolled type 2 diabetes. 2. Uncontrolled type 2 diabetes. 3. Hypertension. 4. Chronic alcohol abuse. 5. Medical noncompliance. PLAN: At this time, continue with IV fluids, pain control. Advanced diet to regular. If he tolerates it well, discharge home tomorrow. Lovenox for DVT prophylaxis. MD WILLIAM Resendiz/MODL /[id number]
[2019-09-15] MEDS: MORPHINE SULFATE INJ 4 MG/ML INJ 1ML IV PRN ×4 (03:30→13:47)
[2019-09-15 04:00] VITALS: BP 121/82
[2019-09-15] MEDS: SODIUM CHLORIDE 0.9% 1000ML 1,000 ML IV SCH ×3 (04:32→10:55)
[2019-09-15 06:37] LABS: ANION GAP 15.2 mmol/L (8-16); BLOOD UREA NITROGEN 5 mg/dL (7-26); BUN/CREATININE RATIO 7 (6-25); CALCIUM 9.7 mg/dL (8.4-10.2); CARBON DIOXIDE 25 mmol/L (22-29); CHLORIDE 103 mmol/L (98-107); CREATININE, SERUM 0.74 mg/dL (0.72-1.25); EST GLOMERULAR FILTRATION RATE > 60 ML/MIN (60-); GLUCOSE 126 mg/dL (74-118); POTASSIUM 4.2 mmol/L (3.5-5.1); SODIUM 139 mmol/L (136-145)
--- NOTE | 2019-09-15 06:45 | NUR ---
patient endorsed to next shift for continuity of care.
[2019-09-15 07:27] VITALS: BP 121/82
[2019-09-15 08:00] VITALS: BP 128/88
[2019-09-15] MEDS: PANTOPRAZOLE 40 MG 10ML VIAL IV SCH (08:55)
[2019-09-15] MEDS: AMLODIPINE BESYLATE 5 MG TAB PO SCH (08:55)
[2019-09-15 12:00] VITALS: BP 118/86
--- NOTE | 2019-09-15 15:49 | NUR ---
Discharge instructions were given to the patient, he verbalized understanding. IV to the left hand and ac were removed with tip intact.
--- NOTE | 2019-09-16 06:12 | Discharge Summary ---
FINAL DISCHARGE DIAGNOSES: 1. Acute on chronic pancreatitis secondary to alcohol abuse and uncontrolled type 2 diabetes. 2. Chronic alcohol abuse. 3. Uncontrolled type 2 diabetes. 4. Hypertension. 5. Medical noncompliance. CONSULTANTS: None. PHYSICAL EXAMINATION: VITAL SIGNS: Temperature is 97.5, pulse 74, respirations 18, blood pressure 118/86, pulse ox 100% on room air. LABORATORY FINDINGS: Show white count 5, hemoglobin 12, hematocrit 36, platelets of 181. Chemistry; sodium 139, potassium 4.2, chloride 103, bicarb 25, anion gap of 15, BUN is 5, creatinine is 0.74, calcium is 9.7. LFTs were; total bilirubin was 0.8, AST 26, ALT 34, alkaline phosphatase 84, lipase was 60. Urinalysis is negative. Serology, coronavirus is not detected. Microbiology, none. IMAGING STUDIES: CT abdomen and pelvis showed mild peripancreatic fat stranding, slightly more prominent compared to the prior CT. May represent residual changes related to prior pancreatitis versus a mild recurrent acute pancreatitis. Diffuse hepatic steatosis. HOSPITAL COURSE: This is a 34-year-old male known to our service. He has a history of chronic pancreatitis secondary to alcohol abuse. He came in with complaints of abdominal pain, nausea, and vomiting. The patient reports he had some alcoholic drinks several days prior to arrival to the hospital, which likely that his underlying pancreatitis. While here, his lipase levels were more normal. This was all secondary to chronic pancreatitis. Imaging studies are consistent with acute pancreatitis. He was initially n.p.o., IV fluids, pain control, and then eventually he was converted to a clear liquid diet and then he advanced to full liquids and then to regular, which he tolerated well. The patient's pain was well controlled prior to being discharged to home. He was back to normal baseline. On the day of discharge, vital signs were stable. Labs reviewed and stable. The patient is seen, evaluated, and examined thoroughly on the day of discharge. No other complaints. The patient verbalized understanding and agrees to plan of care to follow up accordingly as an outpatient with primary care physician in 1 week and GI specialist in 2 weeks' time. MEDICATIONS: See med reconciliation form. DISPOSITION: Home. CONDITION: Stable. DIET: Heart healthy. In the event of any worsening symptoms, the patient was advised to come back to the ED for further evaluation. Discharge summary took greater than 35 minutes. Once again, the patient is doing well with no other issues at this time. He is stable prior to being discharged. MD WILLIAM Resendiz/SAILAJAL /[id number]
== END 2019-09-15 16:00 | disposition home or self-care (01) | DRG 439 ==
LOC: ER 14:10 → ERHOLD 16:20 → MED/SURG2 18:34
PROVIDERS: ADMIT Internal Medicine; ATTEND Internal Medicine
DX: K85.20 Alcohol induced acute pancreatitis without necrosis or infection (principal); E87.1 Hypo-osmolality and hyponatremia; F10.10 Alcohol abuse, uncomplicated; E11.69 Type 2 diabetes mellitus with other specified complication; E78.5 Hyperlipidemia, unspecified; I10 Essential (primary) hypertension; Z91.19 Patient's noncompliance with other medical treatment and regimen; Z79.84 Long term (current) use of oral hypoglycemic drugs; F17.210 Nicotine dependence, cigarettes, uncomplicated; Z11.59 Encounter for screening for other viral diseases; Z83.3 Family history of diabetes mellitus; Z82.49 Family history of ischemic heart disease and other diseases of the circulatory system
CPT/HCPCS: 36415; 74176; 80048; 80053; 81001; 82150; 82948; 83690; 85025; 96361; 99284; J1650; J1885; J2270; J2405; J7030; U0002

== ENCOUNTER 2019-12-24 14:21 | Emergency (ER) | payer OTHER, SELFPAY ==
[~2019-12-24] VITALS: Ht 315 cm; Wt 100.2 kg
--- OUTSIDE RECORDS SUMMARY | 2019-12-24 15:13 | XMS REPORT | Clinical Summary ---
Author Author [facility] ict Organization [facility] ict Address Unknown Phone Unavailable Care Team Providers Care Research Chef Name Role Phone Trung Bradshaw MD PCP [...] complication, with long-term current use of insulin 06/14/2019 Discontinued (Therapy comple obey) atorvastatin (LIPITOR) [...] Care Team Description Date Type Specialty Doctor, [facility] 07/16/2019 E-Visit Trung Bradshaw MD Rash and other nonspecific skin eruption (Primary Dx) 06/14/2019 Telemedicine Family Practice after 12/23/2018 Immunizations Name Administration Dates Next Due Influenza, [...] travel history available. Last Filed Vital Signs Not on file Plan of Treatment Care Team Description Date Type Specialty Rescheduled from 10/15/2019 01/15/2020 Office Visit Dermatology Health Maintenance Due Date Last Done Comments DM Microalbumin Urine 11/10/2018 11/10/2017 Scrn (Yearly) DM Foot Exam (Yearly) 12/19/2018 12/19/2017, 11/10/2017, 09/23/2017 DM HGBA1C (Yearly) 09/14/2019 09/13/2018, 02/09/2018, 11/10/2017 DM Retinal Exam (Yearly) 09/14/2019 09/13/2018, 11/10/2017 IMM Influenza Seasonal 11/15/2019 12/19/2017 Oct to April (>/= 19 yrs) Results Not on fileafter 12/23/2018 Insurance Type Payer Benefit Subscriber ID Effective Phone Address Plan / Dates Group [facility] xxxxxxx 2019- [address] [employer] [id number] [place], [place] [id number] [employer] FINANCIAL xxxxxxx 2019- [phone] [address] [place] [address] [employer] PL[employer] FINANCIAL xxxxxxx 2019- [phone] [address] [place] [address]
--- OUTSIDE RECORDS SUMMARY | 2019-12-24 15:14 | XMS REPORT | Continuity of Care Document ---
Author Author [employer] DEANDRE Meadows/Sobeida Organization [employer] Address Unknown Phone Unavailable Care Team Providers Care Circus Trainer Name Role Phone [employer] Information Exchange Unavailable Un available Problems Problem Status Onset Date Classification Date Reported Comments Source ACUTE PANCREATITIS Active 10/03/2019 [facility] ABD PAIN Active 10/02/2019 [facility] ACUTE PANCREATITIS Active 10/02/2019 [facility] CHEST/ABD PAINS Active 02/17/2019 [facility] ACUTE PANCREATITIS, ABDOMINAL PAIN,ACUTE Active 02/17/2019 [facility] ACUTE PANCREATITIS, TYPE II DIABETES MEGAN Active 11/27/2018 [facility] Calculus of gallbladder with acute carmen cystitis without obstruction 09/20/2017 04/01/2018 [facility] DKA, CHOLELITHIASIS Active 09/09/2017 [facility] Alcohol abuse (disorder) Active Problem 10/08/2019 [facility] Body mass index 40+ - severely obese (finding) Active Problem 10/08/2019 [facility] Hypertensive disorder, systemic arterial (disorder) Resolved Problem 10/08/2019 [facility] Hypertriglyceridemia (disorder) Active Problem [facility] Morbid obesity (disorder) Acti ve Problem [facility] Noncompliance with medication regimen (finding) Active Problem 10/08/2019 [facility] Diabetes mellitus type 2 (disorder) Resolved Problem [facility] Type II diabetes mellitus uncontrolled (finding) Active Problem 10/08/2019 [facility] Type 2 diabetes mellitus with ketoacidosis without com a 04/01/2018 [facility] Obesity, unspecified 04/01/2018 [facility] Body mass index (BMI) 39.0-39.9, adult 04/01/2018 [facility] Hypokalemia 04/01/2018 [facility] Essential (primary) hypertension 04/01/2018 [facility] Family history of diabetes mellitus 04/01/2018 [facility] Personal history of nicotine dependence 04/01/2018 [facility] Acute pancreatitis without necrosis or i nfection, unspecified 12/04/2018 [facility] OTH DIABETES MELLITUS WITH KETOACIDOSIS Active [facility] CALCULUS OF GALLBLADDER W/O CHOLECYSTITI Active [facility] ACUTE PANCREATITIS WITHOUT NECROSIS OR I Active [facility] ACUTE PANCREATITIS WITHOUT NECROSIS OR INFECTION, UNS Active [facility] EPIGASTRIC PAIN Active [facility] Medications Medication Details Route Status Patient Instructions Ordering Provider Order Date Source pantoprazole 40 MG Enteric Coated Tablet [Protonix] 40 mg = 1 tab, PO, Daily, # 30 tab, 0 Refill(s), Pharmacy: [facility], 162.56, cm, 10/03/19 4:22:00 CDT, Height, 100.483, kg, 10/03/19 4:22:00 CDT, Weight Active 10/07/2019 [facility] amLODIPine 5 mg oral tablet 5 mg = 1 tab, PO, Daily, # 30 tab, 0 Refill(s), Pharmacy: [facility], 162.56, cm, 10/03/19 4:22:00 CDT, Height, 100.483, kg, 10/03/19 4:22:00 CDT, Weight Active 10/07/2019 [facility] Ciprofloxacin 500 MG Oral Tablet [Cipro] 500 mg = 1 tab, PO, Q12H, X 4 day, # 8 tab, 0 Refill(s), Pharmacy: [facility], 162.56, cm, 10/03/19 4:22:00 CDT, Height, 100.483, kg, 10/03/19 4:22:00 CDT, Weight Active 10/06/2019 [facility] Metronidazole 500 MG Oral Tablet [Flagyl] 500 mg = 1 tab, PO, Q8H, X 4 day, # 12 tab, 0 Refill(s), Pharmacy: [facility], 162.56, cm, 10/03/19 4:22:00 CDT, Height, 100.483, kg, 10/03/19 4:22:00 CDT, Weight Active 10/06/2019 [facility] Acetaminophen 300 MG / Codeine Phosphate 30 MG Oral Tablet 1 tab, PO, Q6H, PRN Pain Score 7-10, X 1 day, # 4 tab, 0 Refill(s), Pharmacy: [facility], 162.56, cm, 10/03/19 4:22:00 CDT, Height, 100.483, kg, 10/03/19 4:22:00 CDT, Weight N o Longer Active 10/06/2019 [facility] atorvastatin 40 mg oral tablet 40 mg = 1 tab, PO, Bedtime, # 30 tab, 0 Refill(s), Pharmacy: [facility], 162.56, cm, 10/03/19 4:22:00 CDT, Height, 100.483, kg, 10/03/19 4:22:00 CDT, Weight Active 10/06/2019 [facility] Fenofibrate 145 MG Oral Tablet 145 mg = 1 tab, PO, Daily, # 30 tab, 0 Refill(s), Pharmacy: [facility], 162.56, cm, 10/03/19 4:22:00 CDT, Height, 100.483, kg, 10/03/19 4:22:00 CDT, Weight Active 10/06/2019 [facility] Metformin hydrochloride 500 MG Oral Tablet 1,000 mg = 2 tab, PO, BID, # 120 tab, 0 Refill(s), Pharmacy: [facility], 162.56, cm, 10/03/19 4:22:00 CDT, Height, 100.483, kg, 10/03/19 4:22:00 CDT, Weight Active 10/06/2019 [facility] pioglitazone 15 mg oral tablet 15 mg = 1 tab, PO, Daily, # 30 tab, 0 Refill(s), Pharmacy: [facility], 162.56, cm, 10/03/19 4:22:00 CDT, Height, 100.483, kg, 10/03/19 4:22:00 CDT, Weight Active 10/06/2019 [facility] Accu-Chek Marianela Blood Glucose Meter , # 1 ea, Insulin dependent, Does not use insulin pump, Last DM eval date 10/06/19, 0 Refill(s), Pharmacy: [facility], 162.56, cm... Active 10/06/2019 [facility] Accu-Chek Marianela Plus Blood Glucose Test Strips , # 100 ea, Insulin dependent, Does not use insulin pump, Last DM eval date 10/06/19, 0 Refill(s), Pharmacy: [facility], 162.56, c... Active 10/06/2019 [facility] Accu-Chek FastClix Lancets , # 100 ea, Insulin dependent, Does not use insulin pump, Last DM eval date 10/06/19, 0 Refill(s), Pharmacy: [facility]... Active 10/06/2019 [facility] Accu-Chek FastClix Lancets Device , # 1 ea, Insulin dependent, Does not use insulin pump, Last DM eval date 10/06/19, 0 Refill(s), Pharmacy: [facility], 162.56, cm... Active 10/06/2019 [facility] pioglitazone Notes: (Same as: Actos) Inactive 10/06/2019 [facility] Metformin hydrochloride 1000 MG Oral Tablet Notes: (Same as: Glucophage) Take with meal No Longer Active 10/05/2019 [facility] Dextrose 50% Syringe (D50W) 12 .5 gm, 25 mL, Route: IVP, Drug Form: INJ, Dosing Weight 100.483, kg, PRN, PRN Blood Glucose Results, Start date: 10/05/19 15:25:00 CDT, Duration: 30 day, Stop date: 11/04/19 15:24:00 CDT, 0 No Longer Active 10/05/2019 [facility] Glucagon 1 mg, Route: IM, Drug form: PDR/INJ, PRN, Dosing Weight 100.483, kg, PRN Blood Glucose Results, Start date: 10/05/19 15:25:00 CDT, Duration: 30 day, Stop date: 11/04/19 15:24:00 CDT, 0 No Longer Active 10/05/2019 [facility] Insulin Lispro Notes: (Same as : Humalog) Roll in palms of hands gently; Do not shake vigorously. WASTE: F/P - Black; E - Municipal Trash Bin Stable for 28 days at room temperature. Expires in days from Date No Longer Active 10/05/2019 [facility] Insulin Glargine 100 UNT/ML Injectable Solution Notes: (Same as: Lantus) Do not hold insulin without contacting prescriber WASTE: F/P - Black; E - Municipal Trash Bin "single patient use only" Stable for 28 days at room temperature Expires in days from Date No Longer Active 10/05/2019 [facility] Fenofibrate 145 MG Oral Tablet 145 mg, 1 tab, Route: PO, Drug form: TAB, Daily, Dosing Weight 100.483, kg, Start date: 10/04/19 9:00:00 CDT, Duration: 30 day, Stop date: 11/02/19 9:00:00 CDT No Longer Active 10/04/2019 [facility] atorvastatin Notes: (Same as: Lipitor) No Longer Active 10/04/2019 [facility] Gemfibrozil 600 mg, 1 tab, Rou te: PO, Drug form: TAB, BID, Dosing Weight 100.483, kg, Start date: 10/03/19 17:00:00 CDT, Duration: 30 day, Stop date: 11/02/19 9:00:00 CDT Inactive 10/03/2019 [facility] Ciprofloxacin Notes: Do not re frigerate No Longer Active 10/03/2019 [facility] Flagyl Notes: (Same as: Flagyl ) Avoid alcohol. No Longer Active 10/03/2019 [facility] Protonix Notes: Tablet should not be chewed or crushed. (Same as: Protonix) No Longer Active 10/03/2019 [facility] Potassium Chloride Notes: ([facility] e as: KCL) Infuse no faster than 10 mEq/hr if given peripherally. No Longer Active 10/03/2019 [facility] sodium phosphate Notes: Infuse over 4 hour. Do not infuse phosphorous concurrently in the same line as TPN or IVF that contains calcium. For double lumen central lines, phosphorous may be infused in a separate lumen from TPN. No Longer Active 10/03/2019 [facility] potassium phosphate Notes: (Sa me as: K Phosphate.) Do not infuse phosphorous concurrently in the same line as TPN or IVF that contains calcium. For double lumen central lines, phosphorous may be infused in a separate lumen from TPN. 1 mMol phoshate has 1.47 mEq potassium Infuse over 4 hours No Longer Active 10/03/2019 [facility] potassium phosphate-sodium phosphate 250 mg-280 mg-160 mg oral powder for reconstitution Notes: (Same as: Phos-NaK) Each 1.5 gm pkt has 250mg phosphorous. Mix w/2.5oz water and stir. No Longer Active 10/03/2019 [facility] Magnesium Sulfate Notes: WASTE : F/P - Sink; E - Municipal Trash Bin No Longer Active 10/03/2019 [facility] Magnesium Oxide Notes: (Same a s: Mag-Ox 400) Magnesium oxide [id number] elemental magnesium Dose=____mg magnesium oxide (___mg elemental magnesium) No Longer Active 10/03/2019 [facility] Calcium Gluconate Notes: Conta ins: calcium gluconate 20mg/mL NaCl 0.67% 50mL WASTE: F/P - Sink; E - Municipal Trash Bin No Longer Active 10/03/2019 [facility] Calcium Carbonate 500 MG Chewable Tablet Notes: (Same As: Tums) Calcium Carbonate 500 mg = 200 mg elemental calcium Dose = mg calcium carbonate ( mg elemental calcium) No Longer Active 10/03/2019 [facility] Insulin regular 100 unit + Sodium Chlori de 0.9% (titrate) 99 mL Notes: (Same as: Humulin R, NovoLIN R) Roll in palms of hands gently; Do not shake vigorously. WASTE: F/P - Black; E - Municipal Trash Bin Stable for 31 days at room temperature Expires in days from Date No Longer Active 10/03/2019 [facility] Dextrose 50% Syringe (D50W) 25 gm, 50 mL, Route: IVP, Drug Form: INJ, Dosing Weight 100.483, kg, PRN, PRN Blood Glucose Results, Start date: 10/03/19 9:40:00 CDT, Duration: 30 day, Stop date: 11/02/19 9:39:00 CDT, 0 No Longer Active 10/03/2019 [facility] D5LR 1,000 mL 1,000 mL, Rate: Titrate, Route: IV, Dosing Weight 100.483 kg, Total Volume: 1,000, Start date: 10/03/19 9:40:00 CDT, Duration: 30 day, Stop date: 11/02/19 9:39:00 CDT, 2.16, m2, 0 No Longer Active 10/03/2019 [facility] D10W 1,000 mL 1,000 mL, Rate: Titrate, Route: IV, Dosing Weight 100.483 kg, Total Volume: 1,000, Start date: 10/03/19 9:40:00 CDT, Duration: 30 day, Stop date: 11/02/19 9:39:00 CDT, 2.16, m2, 0 No Longer Active 10/03/2019 [facility] Lactated Ringers (titrate) IV 1,000 mL 1,000 mL, Rate: Titrate, Dosing Weight 100.483, kg, Route: IV, Total Volume: 1,000, Start Date: 10/03/19 9:40:00 CDT, Duration: 30 day, Stop date: 11/02/19 9:39:00 CDT, Replace Every: 24 hr, 0 No Longer Active 10/03/2019 [facility] normal saline 0.9% IV 1,000 mL 1,000 mL, Rate: 200 ml/hr, Infuse over: 5 hr, Route: IV, Dosing Weight 100.483 kg, Total Volume: 1,000, Start date: 10/03/19 9:31:00 CDT, Duration: 30 day, Stop date: 11/02/19 9:30:00 CDT, 2.16, m2, 0 Inactive 10/03/2019 [facility] Fenofibrate 145 MG Oral Tablet Notes: (Same as: Tricor) No Longer Active 10/03/2019 [facility] Insulin Glargine 100 UNT/ML Injectable Solution Notes: (Same as: Raj) Do not hold insulin without contacting prescriber WASTE: F/P - Black; E - Municipal Trash Bin "single patient use only" Stable for 28 days at room temperature Expires in days from Date Inactive 10/03/2019 [facility] Lactated Ringers IV 1,000 mL 1 ,000 mL, Rate: 250 ml/hr, Infuse over: 4 hr, Route: IV, Dosing Weight 100.483 kg, Total Volume: 1,000, Start date: 10/03/19 9:12:00 CDT, Duration: 12 hr, Stop date: 10/03/19 21:11:00 CDT, 2.16, m2, 0 Inactive 10/03/2019 [facility] Amlodipine Notes: (Same as: No rvasc) No Longer Active 10/03/2019 [facility] Glipizide 5 MG Oral Tablet 5 m g = 1 tab, PO, BID, 0 Refill(s) No Longer Active 10/03/2019 [facility] gemfibrozil 600 mg oral tablet 600 mg = 1 tab, PO, BID, 0 Refill(s) No Longer Active 10/03/2019 [facility] Amlodipine 5 mg, PO, Daily, 0 Refill(s) No Longer Active 10/03/2019 [facility] Enoxaparin Notes: (Same as: venox) No Longer Active 10/03/2019 [facility] Lactated Ringers IV 1,000 mL 1 ,000 mL, Rate: 125 ml/hr, Infuse over: 8 hr, Route: IV, Dosing Weight 104.545 kg, Total Volume: 1,000, Start date: 10/03/19 3:12:00 CDT, Duration: 30 day, Stop date: 11/02/19 3:11:00 CDT, 2.21, m2, 0 Inactive 10/03/2019 [facility] Ondansetron Notes: (Same as: Dae leigh) MEDICATION WASTE Product Size: 4 mg Product Wasted: ___ mg No Longer Active 10/03/2019 [facility] Acetaminophen Notes: Do not ex ceed 4 gm/day. (Same as: Tylenol) No Longer Active 10/03/2019 [facility] Morphine Notes: (Same as:MORPh ine Sulfate) No Longer Active 10/03/2019 [facility] Maalox Advanced Regular Strength SUSP Notes: (aluminum hydroxide-magnesium hyd-simethicone [id number]/5ml 30 ml ud SATISH) No Longer Active 10/03/2019 [facility] Robitussin 100 mg/5 mL oral liquid Notes: (Same as: Robitussin) No Longer Active 10/03/2019 [facility] Trazodone Notes: (Same As: Virgilio yrel) No Longer Active 10/03/2019 [facility] Hydralazine Notes: (Same as: A presoline) Push over 5 minutes No Longer Active 10/03/2019 [facility] Dextrose 50% Syringe (D50W) 12 .5 gm, 25 mL, Route: IVP, Drug Form: INJ, Dosing Weight 104.545, kg, PRN, PRN Blood Glucose Results, Start date: 10/03/19 3:12:00 CDT, Duration: 30 day, Stop date: 11/02/19 3:11:00 CDT, 0 Inactive 10/03/2019 [facility] Glucagon 1 mg, Route: IM, Drug form: PDR/INJ, PRN, Dosing Weight 104.545, kg, PRN Blood Glucose Results, Start date: 10/03/19 3:12:00 CDT, Duration: 30 day, Stop date: 11/02/19 3:11:00 CDT, 0 Inactive 10/03/2019 [facility] Insulin Lispro Notes: (Same as : Humalog) Roll in palms of hands gently; Do not shake vigorously. WASTE: F/P - Black; E - Municipal Trash Bin Stable for 28 days at room temperature. Expires in days from Date Inactive 10/03/2019 [facility] Flagyl Notes: (Same as: Flagyl ) Avoid alcohol. Inactive 10/03/2019 [facility] Morphine Notes: (Same as:MORPh ine Sulfate) Inactive 10/03/2019 [facility] Zofran Notes: (Same as: Zofran ) MEDICATION WASTE Product Size: 4 mg Product Wasted: ___ mg Inactive 10/03/2019 [facility] Cipro Notes: Do not refrigerate Inactive 10/03/2019 [facility] Sodium Chloride 0.9% (Bolus) IV 1,000 mL, Infuse Over: 1 hr, Route: IV, ONCE, Priority: STAT, Dosing Weight 104.545 kg, Start date: 10/03/19 0:55:00 CDT, Stop date: 10/03/19 0:55:00 CDT Inactive 10/03/2019 [facility] Morphine 4 mg, Route: IVP, ONC E, Dosing Weight 104.545, kg, Priority: STAT, Start date: 10/03/19 0:55:00 CDT, Stop date: 10/03/19 0:55:00 CDT Inactive 10/03/2019 [facility] Zofran 4 mg, Route: IVP, Drug form: INJ, ONCE, Dosing Weight 104.545, kg, Priority: STAT, Start date: 10/03/19 0:55:00 CDT, Stop date: 10/03/19 0:55:00 CDT Inactive 10/03/2019 [facility] lisinopril 5 mg oral tablet 5 mg = 1 tab, PO, Daily, # 30 tab, 0 Refill(s), Pharmacy: [facility] [id number] Active 02/23/2019 [facility] Fenofibrate 145 MG Oral Tablet 145 mg = 1 tab, PO, Daily, # 90 tab, 0 Refill(s), Pharmacy: [place] [address] Active 02/23/2019 [facility] atorvastatin 40 mg oral tablet 40 mg = 1 tab, PO, Bedtime, # 90 tab, 0 Refill(s), Pharmacy: [place] [address] Active 02/23/2019 [facility] Metformin hydrochloride 500 MG Oral Tablet 500 mg = 1 tab, PO, BID-Meals, # 60 tab, 0 Refill(s), Pharmacy: [place] [address] Active 02/23/2019 [facility] pantoprazole 40 MG Enteric Coated Tablet [Protonix] 40 mg = 1 tab, PO, Daily, # 30 tab, 0 Refill(s), Pharmacy: [place] [address] Active 02/22/2019 [facility] Bentyl Notes: (Same as: Bentyl) No Longer Active 02/20/2019 [facility] Docusate Sodium 50 MG / sennosides, RETIREMENT 8.6 MG Oral Tablet Notes: (Same as Senokot-S) Equiv. to Sarah-Colace. No Longer Active 2019 [facility] atorvastatin Notes: (Same as: Lipitor) No Longer Active 02/18/2019 [facility] Acetaminophen 325 MG / Hydrocodone Rah trate 5 MG Oral Tablet [Hurley 5/325] Notes: (Same as: Hurley 325/5) Do not ex ceed 4gm/day of acetaminophen. No Longer Activ e 02/17/2019 [facility] Morphine Notes: (Same as:MORPh ine Sulfate) No Longer Active 02/17/2019 [facility] Fenofibrate 145 MG Oral Tablet Notes: (Same as: Tricor) No Longer Active 02/17/2019 [facility] Lisinopril Notes: (Same as: Pr inivil, Zestril) No Longer Active 02/17/2019 [facility] pantoprazole Notes: For IV pus h reconstitute with 10 ml 0.9% sodium chloride and push over 2 minutes. (Same as: Protonix) No Longer Active 02/17/2019 [facility] Dextrose 50% Syringe (D50W) 12 .5 gm, 25 mL, Route: IVP, Drug Form: INJ, Dosing Weight 109.091, kg, PRN, PRN Blood Glucose Results, Start date: 02/17/19 6:14:00 INSPECTOR TECHNICIAN, Duration: 30 day, Stop date: 03/19/19 6:13:00 INSPECTOR TECHNICIAN, 0 No Longer Active 02/17/2019 [facility] Glucagon 1 mg, Route: IM, Drug form: PDR/INJ, PRN, Dosing Weight 109.091, kg, PRN Blood Glucose Results, Start date: 02/17/19 6:14:00 INSPECTOR TECHNICIAN, Duration: 30 day, Stop date: 03/19/19 6:13:00 INSPECTOR TECHNICIAN, 0 No Longer Active 02/17/2019 [facility] Insulin Lispro Notes: (Same as : Humalog) Roll in palms of hands gently; Do not shake vigorously. WASTE: F/P - Black; E - Municipal Trash Bin Stable for 28 days at room temperature. Expires in days from Date No Longer Active 02/17/2019 [facility] Ondansetron 4 mg, Route: IVP, Q8H, Dosing Weight 109.091, kg, PRN Nausea & Vomiting, Start date: 02/17/19 6:13:00 INSPECTOR TECHNICIAN, Duration: 30 day, Stop date: 03/19/19 6:12:00 INSPECTOR TECHNICIAN Inactive 02/17/2019 [facility] Dextrose 50% Syringe (D50W) 25 mL, Route: IVP, Dosing Weight 109.091, kg, PRN, PRN Blood Glucose Results, Start date: 02/17/19 6:13:00 INSPECTOR TECHNICIAN, Duration: 30 day, Stop date: 03/19/19 6:12:00 INSPECTOR TECHNICIAN Inactive 02/17/2019 [facility] Glucagon 1 mg, Route: IM, PRN, Dosing Weight 109.091, kg, PRN Blood Glucose Results, Start date: 02/17/19 6:13:00 INSPECTOR TECHNICIAN, Duration: 30 day, Stop date: 03/19/19 6:12:00 INSPECTOR TECHNICIAN Inactive 02/17/2019 [facility] Bisacodyl Notes: (Same As: Dul colax, Bisco-Lax) No Longer Active 02/17/2019 [facility] Melatonin Notes: (Same as: Megan atonin) No Longer Active 02/17/2019 [facility] Lactated Ringers IV 1,000 mL 1 ,000 mL, Rate: 125 ml/hr, Infuse over: 8 hr, Route: IV, Dosing Weight 109.091 kg, Total Volume: 1,000, Start date: 02/17/19 6:13:00 INSPECTOR TECHNICIAN, Duration: 30 day, Stop date: 03/19/19 6:12:00 INSPECTOR TECHNICIAN, 2.26, m2, 0 No Longer Active 02/17/2019 [facility] Saline Flush 0.9% Notes: (Same as: BD Posiflush) No Longer Active 02/17/2019 [facility] Morphine Notes: (Same as:MORPh ine Sulfate) Inactive 02/17/2019 [facility] Dilaudid Notes: (Same as: Dila udid) Inactive 02/17/2019 [facility] Sodium Chloride 0.9% (Bolus) IV 1,000 mL, 1000 ml/hr, Infuse Over: 1 hr, Route: IV, 1,000, Drug form: INJ, ONCE, Priority: STAT, Dosing Weight 109.091 kg, Start date: 02/17/19 3:18:00 INSPECTOR TECHNICIAN, Stop date: 02/17/19 3:18:00 INSPECTOR TECHNICIAN, 0 Inactive 02/17/2019 [facility] Morphine Notes: (Same as:MORPh ine Sulfate) Inactive 02/17/2019 [facility] Ondansetron Notes: (Same as: Dae leigh) MEDICATION WASTE Product Size: 4 mg Product Wasted: ___ mg Inactive 02/17/2019 [facility] Acetaminophen 300 MG / Codeine Phosphate 30 MG Oral Tablet [Tylenol with Codeine #3] 1 - 2 tab, PO, Q4H, PRN Pain, X 3 day, # 20 tab, 0 Refill(s) Active 12/02/2018 [facility] Fenofibrate 145 MG Oral Tablet 145 mg = 1 tab, PO, Daily, # 90 tab, 0 Refill(s), Pharmacy: [place] [id number] Active 12/02/2018 [facility] atorvastatin 40 mg oral tablet 40 mg = 1 tab, PO, Bedtime, # 90 tab, 0 Refill(s), Pharmacy: [place] [id number] Active 12/02/2018 [facility] Acetaminophen 300 MG / Codeine Phosphate 30 MG Oral Tablet [Tylenol with Codeine #3] Notes: Do not exceed 4gm/day of acetamin ophen. (Same as: Tylenol with Codeine # 3) Inactive 12/02/2018 [facility] Dextrose 50% Syringe 12.5 gm, 25 mL, Route: IVP, Drug Form: INJ, Dosing Weight 104.091, kg, PRN, PRN Blood Glucose Results, Start date: 12/01/18 11:56:00 CDT, Duration: 30 day, Stop date: 12/31/18 10:55:00 INSPECTOR TECHNICIAN, 0 No Longer Active 12/01/2018 [facility] Glucagon 1 mg, Route: IM, Drug form: PDR/INJ, PRN, Dosing Weight 104.091, kg, PRN Blood Glucose Results, Start date: 12/01/18 11:56:00 CDT, Duration: 30 day, Stop date: 12/31/18 10:55:00 INSPECTOR TECHNICIAN, 0 No Longer Active 12/01/2018 [facility] Insulin Lispro Notes: (Same as : Humalog) Roll in palms of hands gently; Do not shake vigorously. WASTE: F/P - Black; E - [employer] Trash Bin Stable for 28 days at room temperature. Expires in days from Date No Longer Active 12/01/2018 [facility] Fenofibrate 145 MG Oral Tablet Notes: (Same as: Tricor) No Longer Active 12/01/2018 [facility] atorvastatin Notes: (Same as: Lipitor) No Longer Active 12/01/2018 [facility] Metformin hydrochloride 500 MG Oral Tablet Notes: (Same as: Glucophage) Take with meal No Longer Active 11/30/2018 [facility] d50 syringe 25 gm, 50 mL, Rout e: IV, Drug Form: INJ, Dosing Weight 109.091, kg, ONCE, Start date: 11/30/18 5:57:00 CDT, Stop date: 11/30/18 5:57:00 CDT, 0 Inactive 11/30/2018 [facility] Saline Flush 0.9% Notes: Same as: BD Posiflush Sterile No Longer Active 11/29/2018 [facility] Potassium Chloride Notes: (William e as: KCL) Infuse no faster than 10 mEq/hr if given peripherally. No Longer Active 11/28/2018 [facility] sodium phosphate Notes: Infuse over 4 hour. Do not infuse phosphorous concurrently in the same line as TPN or IVF that contains calcium. For double lumen central lines, phosphorous may be infused in a separate lumen from TPN. No Longer Active 11/28/2018 [facility] potassium phosphate Notes: (Sa me as: K Phosphate.) Do not infuse phosphorous concurrently in the same line as TPN or IVF that contains calcium. For double lumen central lines, phosphorous may be infused in a separate lumen from TPN. 1 mMol phoshate has 1.47 mEq potassium Infuse over 4 hours No Longer Active 11/28/2018 [facility] potassium phosphate-sodium phosphate 250 mg-280 mg-160 mg oral powder for reconstitution Notes: (Same as: Phos-NaK) Each 1.5 gm pkt has 250mg phosphorous. Mix w/2.5oz water and stir. No Longer Active 11/28/2018 [facility] Magnesium Sulfate Notes: WASTE : F/P - Sink; E - Municipal Trash Bin No Longer Active 11/28/2018 [facility] Magnesium Oxide Notes: (Same a s: Mag-Ox 400) Magnesium oxide [id number] elemental magnesium Dose=____mg magnesium oxide (___mg elemental magnesium) No Longer Active 11/28/2018 [facility] Calcium Gluconate Notes: WASTE : F/P - Sink; E - Municipal Trash Bin No Longer Active 11/28/2018 [facility] Calcium Carbonate 500 MG Chewable Tablet Notes: (Same As: Dyana) Calcium Carbonate 500 mg = 200 mg elemental calcium Dose = mg calcium carbonate ( mg elemental calcium) No Longer Active 11/28/2018 [facility] Lovenox Notes: (Same as: Loven ox) No Longer Active 11/28/2018 [facility] Calcium Chloride 0.0014 MEQ/ML / Potassi um Chloride 0.004 MEQ/ML / Sodium Chloride 0.103 MEQ/ML / Sodium Lactate 0.028 MEQ/ML Injectable Solution 1,000 mL, 1,000 ml/hr, Infuse Over: 1 hr , Route: IV, 1,000, Drug form: INJ, ONCE, Priority: STAT, Dosing Weight 109.091 kg, Start date: 11/28/18 10:37:00 CDT, Stop date: 11/28/18 10:37:00 CDT, 0 Inactive 11/28/2018 [facility] Nystatin 100 UNT/MG Topical Powder Notes: (Same as:Mycostatin, Nilstat) For external use only. No Longer Active 11/28/2018 [facility] Saline Flush 0.9% Notes: Same as: BD Posiflush Sterile No Longer Active 11/28/2018 [facility] D5W 1,000 mL 1,000 mL, Rate: 2 50 ml/hr, Infuse over: 4 hr, Route: IV, Dosing Weight 109.091 kg, Total Volume: 1,000, Start date: 11/28/18 10:26:00 CDT, Duration: 30 day, Stop date: 12/28/18 11:26:00 INSPECTOR TECHNICIAN, 2.26, m2, 0 No Longer Active 11/28/2018 [facility] Insulin regular 100 unit + Sodium Chlori de 0.9% (titrate) 99 mL Notes: (Same as: Humulin R, NovoLIN R) Roll in palms of hands gently; Do not shake vigorously. 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, 0 Inactive 11/28/2018 [facility] Ondansetron Notes: (Same as: Dae leigh) MEDICATION WASTE Product Size: 4 mg Product Wasted: ___ mg No Longer Active 11/28/2018 [facility] Dilaudid Notes: Same as: Dilau did Inactive 11/28/2018 [facility] Dextrose 50% Syringe 12.5 gm, 25 mL, Route: IVP, Drug Form: INJ, Dosing Weight 109.091, kg, PRN, PRN Blood Glucose Results, Start date: 11/28/18 3:47:00 CDT, Duration: 30 day, Stop date: 12/28/18 2:46:00 INSPECTOR TECHNICIAN, 0 Inactive 11/28/2018 [facility] Glucagon 1 mg, Route: IM, Drug form: PDR/INJ, PRN, Dosing Weight 109.091, kg, PRN Blood Glucose Results, Start date: 11/28/18 3:47:00 CDT, Duration: 30 day, Stop date: 12/28/18 2:46:00 INSPECTOR TECHNICIAN, 0 Inactive 11/28/2018 [facility] Insulin Lispro Notes: (Same as : Humalog) Roll in palms of hands gently; Do not shake vigorously. WASTE: F/P - Black; E - Municipal Trash Bin Stable for 28 days at room temperature. Expires in days from Date Inactive 11/28/2018 [facility] Lactated Ringers IV 1,000 mL 1 ,000 mL, Rate: 125 ml/hr, Infuse over: 8 hr, Route: IV, Dosing Weight 109.091 kg, Total Volume: 1,000, Start date: 11/28/18 3:46:00 CDT, Duration: 30 day, Stop date: 12/28/18 3:45:00 INSPECTOR TECHNICIAN, 2.26, m2, 0 No Longer Active 11/28/2018 [facility] Ondansetron 4 mg, Route: IVP, ONCE, Dosing Weight 109.091, kg, PRN Nausea & Vomiting, Start date: 11/28/18 3:46:00 CDT Inactive 11/28/2018 [facility] Tramadol Notes: Not to exceed 400mg/day. (Same As: Ultram) No Longer Active 11/28/2018 [facility] Acetaminophen 325 MG / Hydrocodone Rah trate 5 MG Oral Tablet Notes: (Same as: Hurley 325/5) Do not ex ceed 4gm/day of acetaminophen. No Longer Active 11/28/2018 [facility] Hydromorphone Notes: (Same as: Dilaudid) No Longer Active 11/28/2018 [facility] Metformin hydrochloride 500 MG Oral Tablet 500 mg = 1 tab, PO, BID-Meals, # 180 tab, 1 Refill(s) Active 11/28/2018 [facility] Fenofibrate 145 MG Oral Tablet 145 mg = 1 tab, PO, Daily, # 90 tab, 0 Refill(s) N o Longer Active 11/28/2018 [facility] Morphine Notes: (Same as:MORPh ine Sulfate) Inactive 11/28/2018 [facility] Zofran 4 mg, Route: IVP, Drug form: INJ, ONCE, Dosing Weight 109.091, kg, Priority: STAT, Start date: 11/27/18 23:39:00 CDT, Stop date: 11/27/18 23:39:00 CDT No Longer Active 11/28/2018 [facility] Morphine 4 mg, Route: IVP, ONC E, Dosing Weight 109.091, kg, Priority: STAT, Start date: 11/27/18 23:39:00 CDT, Stop date: 11/27/18 23:39:00 CDT No Longer Active 11/28/2018 [facility] NS (Bolus) IV 1,000 mL, Route: IV, Drug form: INJ, ONCE, Priority: STAT, Dosing Weight 109.091 kg, Start date: 11/27/18 23:39:00 CDT, Stop date: 11/27/18 23:39:00 CDT No Longer Active 11/28/2018 [facility] Accu-Chek Marianela Care Kit , # 1 ea, Not insulin dependent, Does not use insulin pump, Last DM eval date 09/12/17, 0 Refill(s) Active 09/12/2017 [facility] Accu-Chek Marianela Plus Blood Glucose Test Strips , # 100 ea, Not insulin dependent, Does not use insulin pump, Last DM eval date 09/12/17, 3 Refill(s) Active 09/12/2017 [facility] Accu-Chek Softclix Lancets Device , # 1 ea, Not insulin dependent, Does not use insulin pump, Last DM eval date 09/12/17, 0 Refill(s) Active 09/12/2017 [facility] Accu-Chek FastClix Lancets , # 100 ea, Not insulin dependent, Does not use insulin pump, Last DM eval date 09/12/17, 11 Refill(s) Active 09/12/2017 [facility] Accu-Chek Marianela Blood Glucose Meter , # 1 ea, Insulin dependent, Does not use insulin pump, Last DM eval date 09/12/17, 0 Refill(s) Active 09/12/2017 [facility] NPH Insulin, Human 100 UNT/ML Injectable Suspension [Novolin N] 10 unit, SUB-Q, TID-Before Meals, # 1 vi al, 3 Refill(s), Pharmacy: [place] [id number] Active 09/12/2017 [facility] Regular Insulin, Human 100 UNT/ML Inject able Solution [Novolin R] 10 unit, SUB-Q, TID-Before Meals, # 1 vi al, 2 Refill(s), Pharmacy: [place] [id number] Active 09/12/2017 [facility] Regular Insulin, Human 100 UNT/ML Inject able Solution [Novolin R] 10 unit, SUB-Q, TID-Before Meals, # 1 vi al, 2 Refill(s), Pharmacy: [place] [id number] Active 09/12/2017 [facility] NPH Insulin, Human 100 UNT/ML Injectable Suspension [Novolin N] 10 unit, SUB-Q, TID-Before Meals, # 1 vi al, 3 Refill(s), Pharmacy: [place] [id number] Inactive 09/12/2017 [facility] Famotidine 20 MG Oral Tablet 2 0 mg = 1 tab, PO, BID, # 60 tab, 0 Refill(s), Pharmacy: [place] [address] Active 09/12/2017 [facility] insulin isophane (NPH) 100 units/mL scooby n recombinant subcutaneous suspension 20 unit, SUB-Q, Q12H, # 1 vial, 2 Refill (s), Pharmacy: [place] [id number] Active 09/12/2017 [facility] lisinopril 5 mg oral tablet 5 mg = 1 tab, PO, Daily, # 30 tab, 0 Refill(s), Pharmacy: [place] [id number] Active 09/12/2017 [facility] potassium chloride + Sodium Chloride 0.9% IV 95 mL Notes: MUST be Diluted before use (Same as: KCl) MEDICATION WASTE Product Size: 40 mEq Product Wasted: ___ mEq Inactive 09/12/2017 [facility] Potassium Chloride 40 mEq, Rou te: IV, ONCE, Dosing Weight 100, kg, Start date: 09/12/17 11:20:00 CDT, Stop date: 09/12/17 11:20:00 CDT Inactive 09/12/2017 [facility] Potassium Chloride Notes: ([facility] e as: K-Dur 20) "Do Not Crush" For patients unable to swallow tablet, dissolve in one half glass of water. Allow about 2 minutes for the tablets to disintegrate. Stir before giving to prepare slurry and administer. Please exclude Patients with feeding tube less than 14 [place] (Dobhoff, J-tube etc) and pediatric and patients. With food and full glass of water Inactive 09/12/2017 [facility] Insulin Lispro Notes: (Same as : Humalog ) Roll in palms of hands gently; Do not shake `vigorously. "Single Patient Use Only " WASTE: F/P - Black; E - Municipal Trash Bin Stable for 28 days at room temp erature. Expires in days from Date No Longer Active 09/12/2017 [facility] Docusate Sodium 100 MG Oral Capsule Notes: (Same as: Colace) (Do Not Crush) No Longer Active 09/11/2017 [facility] Saline Flush 0.9% Notes: (Same as: BD Posiflush) No Longer Active 09/11/2017 [facility] Sodium Chloride 0.9% IV 1,000 mL 1,000 mL, Rate: 125 ml/hr, Infuse over: 8 hr, Route: IV, Dosing Weight 100 kg, Total Volume: 1,000, Start date: 09/11/17 16:24:00 CDT, Duration: 30 day, Stop date: 10/11/17 16:23:00 CDT, 2.16, m2 No Longer Active 09/11/2017 [facility] Ondansetron Notes: (Same as: Dae leigh) MEDICATION WASTE Product Size: 4 mg Product Wasted: ___ mg No Longer Active 09/11/2017 [facility] Morphine Notes: (Same as:MORPh ine Sulfate) No Longer Active 09/11/2017 [facility] acetaminophen-codeine #3 Notes : Do not exceed 4gm/day of acetaminophen. (Same as: Tylenol with Codeine # 3) No Longer Active 09/11/2017 [facility] normal saline 0.9% IV 1,000 mL 1,000 mL, Rate: 75 ml/hr, Infuse over: 13.3 hr, Route: IV, Dosing Weight 100 kg, Total Volume: 1,000, Start date: 09/11/17 16:15:00 CDT, Duration: 30 day, Stop date: 10/11/17 16:14:00 CDT, 2.16, m2 Inactiv e 09/11/2017 [facility] neostigmine (ANES) Route: IV, Drug form: INJ, ONCE, Stop date: 09/11/17 15:25:00 CDT Inactive 09/11/2017 [facility] ketOROLAC (ANES) IV, ONCE Inactive 09/11/2017 [facility] glycopyrrolate (ANES) Route: I V, Drug form: INJ, ONCE, Stop date: 09/11/17 15:25:00 CDT Inactive 09/11/2017 [facility] acetaminophen (ANES) Route: IV , Drug form: INJ, ONCE, Stop date: 09/11/17 15:10:00 CDT Inactive 09/11/2017 [facility] metoclopramide (ANES) Route: I V, Drug form: INJ, ONCE, Stop date: 09/11/17 15:10:00 CDT Inactive 09/11/2017 [facility] ceFAZolin (ANES) Route: IV, Dr ug form: INJ, ONCE, Stop date: 09/11/17 15:05:00 CDT Inactive 09/11/2017 [facility] lidocaine (ANES) Route: IV, Dr ug form: INJ, ONCE, Stop date: 09/11/17 14:53:00 CDT Inactive 09/11/2017 [facility] propofol (ANES) Route: IV, Bradly g form: INJ, ONCE, Stop date: 09/11/17 14:53:00 CDT Inactive 09/11/2017 [facility] rocuronium (ANES) Route: IV, D rug form: INJ, ONCE, Stop date: 09/11/17 14:53:00 CDT Inactive 09/11/2017 [facility] midazolam (ANES) Route: IV, Dr ug form: SOLN, ONCE, Stop date: 09/11/17 14:38:00 CDT Inactive 09/11/2017 [facility] fentaNYL (ANES) Route: IV, Bradly g form: INJ, ONCE, Stop date: 09/11/17 14:38:00 CDT Inactive 09/11/2017 [facility] Lactated Ringers Injection IV (ANES) 1000 mL Route: IV, Total Volume: 1,000, Start date: 09/11/17 14:06:00 CDT, Stop date: 09/11/17 15:06:00 CDT Inactive 09/11/2017 [facility] Insulin regular 5 unit, Route: IV, ONCE, Dosing Weight 100, kg, Priority: NOW, Start date: 09/11/17 13:11:00 CDT, Stop date: 09/11/17 13:11:00 CDT Inactive 09/11/2017 [facility] Tylenol Notes: Do not exceed 4 gm/day. (Same as: Tylenol) No Longer Active 09/10/2017 [facility] Morphine Notes: Preservative f ree. (Same as: Morphine Sulfate-PF) No Longer Active 09/10/2017 [facility] Acetaminophen 325 MG / Hydrocodone Rah trate 5 MG Oral Tablet [Hurley 5/325] Notes: (Same as: Hurley 325/5) Do not ex ceed 4gm/day of acetaminophen. No Longer Activ e 09/10/2017 [facility] Magnesium Oxide Notes: (Same a s: Mag-Ox 400) Magnesium oxide [id number] elemental magnesium Dose=____mg magnesium oxide (___mg elemental magnesium) No Longer Active 09/10/2017 [facility] Calcium Gluconate Notes: WASTE : F/P - Sink; E - Municipal Trash Bin No Longer Active 09/10/2017 [facility] sodium phosphate 15 mmol, 5 mL , Route: IVPB, PRN, Dosing Weight 100, kg, PRN Abnormal Lab Result, For NON-ICU Patients Only., Start date: 09/10/17 14:36:00 CDT, Duration: 30 day, Stop date: 10/10/17 14:35:00 CDT No Longer Active 09/10/2017 [facility] Magnesium Sulfate Notes: WASTE : F/P - Sink; E - Municipal Trash Bin No Longer Active 09/10/2017 [facility] potassium phosphate Notes: (Sa me as: K Phosphate.) 1 mMol phoshate has 1.47 mEq potassium Infuse over 4 hours No Longer Active 09/10/2017 [facility] Potassium Chloride Notes: MUST be Diluted before use (Same as: KCl) MEDICATION WASTE Product Size: 40 mEq Product Wasted: _30_ mEq No Longer Active 09/10/2017 [facility] potassium phosphate-sodium phosphate 250 mg-280 mg-160 mg oral powder for reconstitution Notes: (Same as: Phos-NaK) Each 1.5 gm pkt has 250mg phosphorous. Mix w/2.5oz water and stir. No Longer Active 09/10/2017 [facility] Enoxaparin Notes: (Same as: Lo venox) No Longer Active 09/10/2017 [facility] Insulin Lispro Notes: (Same as : Humalog ) Roll in palms of hands gently; Do not shake `vigorously. "Single Patient Use Only " WASTE: F/P - Black; E - Municipal Trash Bin Stable for 28 days at room temp erature. Expires in days from Date No Longer Active 09/10/2017 [facility] insulin, isophane Notes: Roll in palms of hands gently; Do not shake vigorously. (Same as: Humulin N) Do not hold insulin without contacting prescriber WASTE: F/P - Black; E - Municipal Trash Bin Stable for 28 days at room temperature Expires in days from Date No Longer Active 09/10/2017 [facility] Lisinopril Notes: (Same as: Pr inivil, Zestril) No Longer Active 09/10/2017 [facility] Famotidine 20 MG Oral Tablet N otes: (Same as: Pepcid) No Longer Active 09/10/2017 [facility] Insulin Lispro Notes: (Same as : Humalog ) Roll in palms of hands gently; Do not shake `vigorously. "Single Patient Use Only " WASTE: F/P - Black; E - Municipal Trash Bin Stable for 28 days at room temp erature. Expires in days from Date No Longer Active 09/10/2017 [facility] Glucagon 1 mg, Route: IM, Drug form: PDR/INJ, PRN, Dosing Weight 100, kg, PRN Blood Glucose Results, Start date: 09/10/17 11:19:00 CDT, Duration: 30 day, Stop date: 10/10/17 11:18:00 CDT No Longer Active 09/10/2017 [facility] Dextrose 50% Syringe 25 gm, 50 mL, Route: IVP, Drug Form: INJ, Dosing Weight 100, kg, PRN, PRN Blood Glucose Results, Start date: 09/10/17 11:19:00 CDT, Duration: 30 day, Stop date: 10/10/17 11:18:00 CDT No Longer Active 09/10/2017 [facility] Mupirocin 0.02 MG/MG Topical Ointment 1 appl, Route: NASAL, Q12H, Drug form: OINT, Start date: 09/09/17 21:00:00 CDT, Duration: 5 day, Stop date: 09/14/17 9:00:00 CDT No Longer Active 09/10/2017 [facility] Saline Flush 0.9% Notes: prese rvative free. No Longer Active 09/10/2017 [facility] Famotidine Notes: (Same as: Wayne pcid) Can be dilute in 5- 10cc NS IVP: Slow IV push over at least 2 minutes. No Longer Active 09/10/2017 [facility] Glucagon 1 mg, Route: IM, Drug form: PDR/INJ, PRN, Dosing Weight 100, kg, PRN Blood Glucose Results, Start date: 09/09/17 17:57:00 CDT, Duration: 30 day, Stop date: 10/09/17 17:56:00 CDT No Longer Active 09/09/2017 [facility] Dextrose 50% Syringe 25 gm, 50 mL, Route: IVP, Drug Form: INJ, Dosing Weight 100, kg, PRN, PRN Blood Glucose Results, Start date: 09/09/17 17:57:00 CDT, Duration: 30 day, Stop date: 10/09/17 17:56:00 CDT No Longer Active 09/09/2017 [facility] D5W 1/2NS 1,000 mL 1,000 mL, R ate: 250 ml/hr, Infuse over: 4 hr, Route: IV, Dosing Weight 100 kg, Total Volume: 1,000, Start date: 09/09/17 17:57:00 CDT, Duration: 30 day, Stop date: 10/09/17 17:56:00 CDT, 2.14, m2 No Longer Active 09/09/2017 [facility] 1/2 NS 1,000 mL 1,000 mL, Rate : 250 ml/hr, Infuse over: 4 hr, Route: IV, Dosing Weight 100 kg, Total Volume: 1,000, When Finger stick blood glucose values remain ABOVE 250 mg/dL, administer until BG is less than 250 mg/dL., Start date: 09/09/17 17:57:00 CDT, Duration... Inactive 09/09/2017 [facility] Saline Flush 0.9% Notes: prese rvative free. No Longer Active 09/09/2017 [facility] Nystatin 100 UNT/MG Topical Powder Notes: (Same as:Mycostatin, Nilstat) For external use only. No Longer Active 09/09/2017 [facility] Glucagon 1 mg, Route: IM, Drug form: PDR/INJ, PRN, Dosing Weight 100, kg, PRN Blood Glucose Results, Start date: 09/09/17 14:01:00 CDT, Duration: 30 day, Stop date: 10/09/17 14:00:00 CDT No Longer Active 09/09/2017 [facility] Dextrose 50% Syringe 12.5 gm, 25 mL, Route: IVP, Drug Form: INJ, Dosing Weight 100, kg, PRN, PRN Blood Glucose Results, Start date: 09/09/17 14:01:00 CDT, Duration: 30 day, Stop date: 10/09/17 14:00:00 CDT No Longer Active 09/09/2017 [facility] Insulin (regular) Titrate IV additive 10 0 unit + Sodium Chloride 0.9% (titrate) 99 mL Notes: (Same as: Humulin R and NovoLIN R ) WASTE: F/P - Black; E - Municipal Trash Bin (Do not shake) No Longer Active 09/09/2017 [facility] Potassium Chloride Notes: (William e as: KCL) Infuse no faster than 10 mEq/hr if given peripherally. No Longer Active 09/09/2017 [facility] Magnesium Sulfate Notes: WASTE : F/P - Sink; E - Municipal Trash Bin No Longer Active 09/09/2017 [facility] potassium phosphate Notes: ([facility] as: K Phosphate.) 1 mMol phoshate has 1.47 mEq potassium Infuse over 4 hours No Longer Active 09/09/2017 [facility] Sodium Chloride 0.9% IV 1,000 mL 1,000 mL, Rate: 250 ml/hr, Infuse over: 4 hr, Route: IV, Dosing Weight 100 kg, Total Volume: 1,000, When Finger stick blood glucose values remain ABOVE 250 mg/dL administer until BG is less than 250 mg/dL., Start date: 09/09/17 14:01:00 CDT, Duration:... Inactive 09/09/2017 [facility] D5NS 1,000 mL 1,000 mL, Rate: 250 ml/hr, Infuse over: 4 hr, Route: IV, Dosing Weight 100 kg, Total Volume: 1,000, Start date: 09/09/17 14:01:00 CDT, Duration: 30 day, Stop date: 10/09/17 14:00:00 CDT, 2.14, m2 Inactive 09/09/2017 [facility] Sodium Chloride 0.9% (Bolus) IV 1,000 mL, 1000 ml/hr, Infuse Over: 1 hr, Route: IV, 1,000, Drug form: INJ, ONCE, Priority: STAT, Dosing Weight 100 kg, Start date: 09/09/17 13:59:00 CDT, Stop date: 09/09/17 13:59:00 CDT Inactive 09/09/2017 [facility] Morphine 4 mg, Route: IVP, ONC E, Dosing Weight 100, kg, Priority: STAT, Start date: 09/09/17 12:12:00 CDT, Stop date: 09/09/17 12:12:00 CDT Inactive 09/09/2017 [facility] Metoclopramide 10 mg, Route: I FINANCIAL SERVICES OFFICER, Drug form: INJ, ONCE, Dosing Weight 100, kg, Priority: STAT, Start date: 09/09/17 12:12:00 CDT, Stop date: 09/09/17 12:12:00 CDT Inactive 09/09/2017 [facility] Sodium Chloride 0.9% (Bolus) IV 1,000 mL, Infuse Over: 1 hr, Route: IV, ONCE, Priority: STAT, Dosing Weight 100 kg, Start date: 09/09/17 12:12:00 CDT, Stop date: 09/09/17 12:12:00 CDT Inactive 09/09/2017 [facility] Saline Flush 0.9% Notes: (Same as: BD Posiflush) No Longer Active 09/09/2017 [facility] Allergies, Adverse Reactions, Alerts No Known Medication Allergies Immunizations No Data Provided for This Section Results Order Name Results Value Reference Range Date Interpretation Comments Source CHEM PANEL Amylase Lvl 38 25 - 115 10/06/2019 [facility] CHEM PANEL Lipase Lvl 159 73 - 393 10/06/2019 [facility] CHEM PANEL Magnesium Lvl 2.2 1.8 - 2.4 10/06/2019 [facility] CHEM PANEL Glucose Lvl 136 70 - 99 10/06/2019 [facility] CHEM PANEL BUN 6 7 - 22 10/06/2019 [facility] CHEM PANEL Creatinine Lvl 0.74 0.50 - 1.40 10/06/2019 [facility] CHEM PANEL Sodium Lvl 138 135 - 145 10/06/2019 [facility] CHEM PANEL Potassium Lvl 4.3 3.5 - 5.1 10/06/2019 [facility] CHEM PANEL Chloride Lvl 103 95 - 109 10/06/2019 [facility] CHEM PANEL CO2 30 24 - 32 10/06/2019 [facility] CHEM PANEL Calcium Lvl 9.7 8.5 - 10.5 10/06/2019 [facility] CHEM PANEL Total Protein 7.3 6.4 - 8.4 10/06/2019 [facility] CHEM PANEL Albumin Lvl 3.6 3.5 - 5.0 10/06/2019 [facility] CHEM PANEL ALT 52 0 - 65 10/06/2019 [facility] CHEM PANEL AST 40 0 - 37 10/06/2019 [facility] CHEM PANEL Alk Phos 76 39 - 136 10/06/2019 [facility] CHEM PANEL Bili Total 0.7 0.2 - 1.3 10/06/2019 [facility] CHEM PANEL AGAP 9.3 10.0 - 20.0 10/06/2019 [facility] CHEM PANEL B/C Ratio 8 6 - 25 10/06/2019 [facility] CHEM PANEL Globulin 3.7 2.7 - 4.2 10/06/2019 [facility] CHEM PANEL A/G Ratio 1.0 0.7 - 1.6 10/06/2019 [facility] CHEM PANEL eGFR 119 10/06/2019 Result Comment: The eGFR is calculated using the CKD-EPI formula. In most young, healthy individuals the eGFR will be >90 mL/min/1.73m2. The eGFR declines with age. An eGFR of 60-89 may be normal in some populations, particularly the elderly, for whom the CKD-EPI formula has not been extensively validated. Use of the eGFR is not recommended in the following populations:

Individuals with unstable creatinine concentrations, including patients and those with serious co-morbid conditions.

Patients with extremes in muscle mass or diet.

The data above are obtained from the National Kidney Disease Education Program (NKDEP) which additionally recommends that when the eGFR is used in patients with extremes of body mass index for purposes of drug dosing, the eGFR should be multiplied by the estimated BMI. [facility] HEMATOLOGY Segs 52.2 45.0 - 75.0 10/06/2019 [facility] Lymphocytes 29.0 20.0 - 40.0 10/06/2019 [facility] Monocytes 9.1 2.0 - 12.0 10/06/2019 [facility] Eosinophils 9.0 0.0 - 4.0 10/06/2019 [facility] Basophils 0.7 0.0 - 1.0 10/06/2019 [facility] Neutrophils # 2.6 1.5 - 8.1 10/06/2019 [facility] Lymphocytes # 1.4 1.0 - 5.5 10/06/2019 [facility] Monocytes # 0.5 0.0 - 0.8 10/06/2019 [facility] Eosinophils # 0.4 0.0 - 0.5 10/06/2019 [facility] WBC 5.0 3.7 - 10.4 10/06/2019 [facility] RBC 4.85 4.70 - 6.10 10/06/2019 [facility] Hgb 13.9 14.0 - 18.0 10/06/2019 [facility] Hct 41.2 42.0 - 54.0 10/06/2019 [facility] MCV 84.9 80.0 - 94.0 10/06/2019 [facility] MCH 28.7 27.0 - 31.0 10/06/2019 [facility] HEMATOLOGY MCHC 33.8 32.0 - 36.0 10/06/2019 [facility] HEMATOLOGY RDW 13.8 11.5 - 14.5 10/06/2019 [facility] HEMATOLOGY Platelet 205 133 - 450 10/06/2019 [facility] HEMATOLOGY MPV 7.8 7.4 - 10.4 10/06/2019 [facility] LIPIDS Trig 621 <=149 mg/dL 10/05/2019 [facility] CHEM PANEL Glucose Lvl 141 70 - 99 10/05/2019 [facility] CHEM PANEL BUN 2 7 - 22 10/05/2019 [facility] CHEM PANEL Creatinine Lvl 0.73 0.50 - 1.40 10/05/2019 [facility] CHEM PANEL Sodium Lvl 139 135 - 145 10/05/2019 [facility] CHEM PANEL Potassium Lvl 4.3 3.5 - 5.1 10/05/2019 [facility] CHEM PANEL Chloride Lvl 104 95 - 109 10/05/2019 [facility] CHEM PANEL CO2 29 24 - 32 10/05/2019 [facility] CHEM PANEL Calcium Lvl 8.9 8.5 - 10.5 10/05/2019 [facility] CHEM PANEL Total Protein 6.8 6.4 - 8.4 10/05/2019 [facility] CHEM PANEL Albumin Lvl 3.2 3.5 - 5.0 10/05/2019 [facility] CHEM PANEL ALT 52 0 - 65 10/05/2019 [facility] CHEM PANEL AST 59 0 - 37 10/05/2019 [facility] CHEM PANEL Alk Phos 80 39 - 136 10/05/2019 [facility] CHEM PANEL Bili Total 0.9 0.2 - 1.3 10/05/2019 [facility] CHEM PANEL AGAP 10.3 10.0 - 20.0 10/05/2019 [facility] CHEM PANEL B/C Ratio 3 6 - 25 10/05/2019 [facility] CHEM PANEL Globulin 3.6 2.7 - 4.2 10/05/2019 [facility] CHEM PANEL A/G Ratio 0.9 0.7 - 1.6 10/05/2019 [facility] CHEM PANEL eGFR 120 10/05/2019 Result Comment: The eGFR is calculated using the CKD-EPI formula. In most young, healthy individuals the eGFR will be >90 mL/min/1.73m2. The eGFR declines with age. An eGFR of 60-89 may be normal in some populations, particularly the elderly, for whom the CKD-EPI formula has not been extensively validated. Use of the eGFR is not recommended in the following populations:

Individuals with unstable creatinine concentrations, including patients and those with serious co-morbid conditions.

Patients with extremes in muscle mass or diet.

The data above are obtained from the National Kidney Disease Education Program (NKDEP) which additionally recommends that when the eGFR is used in patients with extremes of body mass index for purposes of drug dosing, the eGFR should be multiplied by the estimated BMI. [facility] CHEM PANEL Magnesium Lvl 1.6 1.8 - 2.4 10/05/2019 [facility] CHEM PANEL Lipase Lvl 129 73 - 393 10/05/2019 [facility] CHEM PANEL Amylase Lvl 36 25 - 115 10/05/2019 [facility] HEMATOLOGY Segs 55.0 45.0 - 75.0 10/05/2019 [facility] Lymphocytes 25.8 20.0 - 40.0 10/05/2019 [facility] Monocytes 9.9 2.0 - 12.0 10/05/2019 [facility] HEMATOLOGY Eosinophils 8.6 0.0 - 4.0 10/05/2019 [facility] Basophils 0.7 0.0 - 1.0 10/05/2019 [facility] Neutrophils # 3.1 1.5 - 8.1 10/05/2019 [facility] Lymphocytes # 1.4 1.0 - 5.5 10/05/2019 [facility] Monocytes # 0.6 0.0 - 0.8 10/05/2019 [facility] Eosinophils # 0.5 0.0 - 0.5 10/05/2019 [facility] WBC 5.6 3.7 - 10.4 10/05/2019 [facility] RBC 4.43 4.70 - 6.10 10/05/2019 [facility] Hgb 12.6 14.0 - 18.0 10/05/2019 [facility] Hct 37.9 42.0 - 54.0 10/05/2019 [facility] MCV 85.5 80.0 - 94.0 10/05/2019 [facility] MCH 28.5 27.0 - 31.0 10/05/2019 [facility] MCHC 33.3 32.0 - 36.0 10/05/2019 [facility] RDW 13.6 11.5 - 14.5 10/05/2019 [facility] HEMATOLOGY Platelet 190 133 - 450 10/05/2019 [facility] HEMATOLOGY MPV 8.1 7.4 - 10.4 10/05/2019 [facility] LIPIDS Trig 536 <=149 mg/dL 10/05/2019 [facility] ELECTROLYTES Potassium Lvl 3.8 3.5 - 5.1 10/05/2019 [facility] CHEM PANEL Lipase Lvl 351 73 - 393 10/04/2019 [facility] CHEM PANEL Glucose Lvl 90 70 - 99 10/04/2019 [facility] CHEM PANEL BUN 5 7 - 22 10/04/2019 [facility] CHEM PANEL Creatinine Lvl 0.66 0.50 - 1.40 10/04/2019 [facility] CHEM PANEL Sodium Lvl 138 135 - 145 10/04/2019 [facility] CHEM PANEL Chloride Lvl 102 95 - 109 10/04/2019 [facility] CHEM PANEL CO2 30 24 - 32 10/04/2019 [facility] CHEM PANEL Calcium Lvl 9.3 8.5 - 10.5 10/04/2019 [facility] CHEM PANEL Total Protein 7.0 6.4 - 8.4 10/04/2019 [facility] CHEM PANEL Albumin Lvl 3.6 3.5 - 5.0 10/04/2019 [facility] CHEM PANEL ALT 42 0 - 65 10/04/2019 [facility] CHEM PANEL AST 34 0 - 37 10/04/2019 [facility] CHEM PANEL Alk Phos 81 39 - 136 10/04/2019 [facility] CHEM PANEL Bili Total 0.7 0.2 - 1.3 10/04/2019 [facility] CHEM PANEL AGAP 9.4 10.0 - 20.0 10/04/2019 [facility] CHEM PANEL B/C Ratio 8 6 - 25 10/04/2019 [facility] CHEM PANEL Globulin 3.4 2.7 - 4.2 10/04/2019 [facility] CHEM PANEL A/G Ratio 1.1 0.7 - 1.6 10/04/2019 [facility] CHEM PANEL eGFR 125 10/04/2019 Result Comment: The eGFR is calculated using the CKD-EPI formula. In most young, healthy individuals the eGFR will be >90 mL/min/1.73m2. The eGFR declines with age. An eGFR of 60-89 may be normal in some populations, particularly the elderly, for whom the CKD-EPI formula has not been extensively validated. Use of the eGFR is not recommended in the following populations:

Individuals with unstable creatinine concentrations, including patients and those with serious co-morbid conditions.

Patients with extremes in muscle mass or diet.

The data above are obtained from the National Kidney Disease Education Program (NKDEP) which additionally recommends that when the eGFR is used in patients with extremes of body mass index for purposes of drug dosing, the eGFR should be multiplied by the estimated BMI. [facility] CHEM PANEL Magnesium Lvl 2.0 1.8 - 2.4 10/04/2019 [facility] CHEM PANEL Glucose Lvl 93 70 - 99 10/04/2019 [facility] CHEM PANEL BUN 6 7 - 22 10/04/2019 [facility] CHEM PANEL Creatinine Lvl 0.73 0.50 - 1.40 10/04/2019 [facility] CHEM PANEL Sodium Lvl 138 135 - 145 10/04/2019 [facility] CHEM PANEL Chloride Lvl 102 95 - 109 10/04/2019 [facility] CHEM PANEL CO2 30 24 - 32 10/04/2019 [facility] CHEM PANEL Calcium Lvl 9.4 8.5 - 10.5 10/04/2019 [facility] CHEM PANEL Total Protein 7.0 6.4 - 8.4 10/04/2019 [facility] CHEM PANEL Albumin Lvl 3.6 3.5 - 5.0 10/04/2019 [facility] CHEM PANEL ALT 40 0 - 65 10/04/2019 [facility] CHEM PANEL AST 33 0 - 37 10/04/2019 [facility] CHEM PANEL Alk Phos 79 39 - 136 10/04/2019 [facility] CHEM PANEL Bili Total 0.6 0.2 - 1.3 10/04/2019 [facility] CHEM PANEL AGAP 9.4 10.0 - 20.0 10/04/2019 [facility] CHEM PANEL B/C Ratio 8 6 - 25 10/04/2019 [facility] CHEM PANEL Globulin 3.4 2.7 - 4.2 10/04/2019 [facility] CHEM PANEL A/G Ratio 1.1 0.7 - 1.6 10/04/2019 [facility] CHEM PANEL eGFR 120 10/04/2019 Result Comment: The eGFR is calculated using the CKD-EPI formula. In most young, healthy individuals the eGFR will be >90 mL/min/1.73m2. The eGFR declines with age. An eGFR of 60-89 may be normal in some populations, particularly the elderly, for whom the CKD-EPI formula has not been extensively validated. Use of the eGFR is not recommended in the following populations:

Individuals with unstable creatinine concentrations, including patients and those with serious co-morbid conditions.

Patients with extremes in muscle mass or diet.

The data above are obtained from the National Kidney Disease Education Program (NKDEP) which additionally recommends that when the eGFR is used in patients with extremes of body mass index for purposes of drug dosing, the eGFR should be multiplied by the estimated BMI. [facility] CHEM PANEL Amylase Lvl 60 25 - 115 10/04/2019 [facility] CHEM PANEL Magnesium Lvl 2.0 1.8 - 2.4 10/04/2019 [facility] CHEM PANEL Lactic Acid Lvl <0.1 0.5 - 2.2 10/04/2019 [facility] CHEM PANEL Phosphorus 4.2 2.5 - 4.5 10/04/2019 [facility] HEMATOLOGY WBC 7.1 3.7 - 10.4 10/04/2019 [facility] HEMATOLOGY RBC 4.95 4.70 - 6.10 10/04/2019 [facility] HEMATOLOGY Hgb 14.1 14.0 - 18.0 10/04/2019 [facility] HEMATOLOGY Hct 41.3 42.0 - 54.0 10/04/2019 [facility] HEMATOLOGY MCV 83.5 80.0 - 94.0 10/04/2019 [facility] MCH 28.6 27.0 - 31.0 10/04/2019 [facility] MCHC 34.2 32.0 - 36.0 10/04/2019 [facility] RDW 13.4 11.5 - 14.5 10/04/2019 [facility] Platelet 224 133 - 450 10/04/2019 [facility] HEMATOLOGY MPV 7.9 7.4 - 10.4 10/04/2019 [facility] Segs 71.5 45.0 - 75.0 10/04/2019 [facility] Lymphocytes 16.3 20.0 - 40.0 10/04/2019 [facility] HEMATOLOGY Monocytes 8.9 2.0 - 12.0 10/04/2019 [facility] HEMATOLOGY Eosinophils 2.8 0.0 - 4.0 10/04/2019 [facility] HEMATOLOGY Basophils 0.5 0.0 - 1.0 10/04/2019 [facility] Neutrophils # 5.1 1.5 - 8.1 10/04/2019 [facility] HEMATOLOGY Lymphocytes # 1.2 1.0 - 5.5 10/04/2019 [facility] HEMATOLOGY Monocytes # 0.6 0.0 - 0.8 10/04/2019 [facility] HEMATOLOGY Eosinophils # 0.2 0.0 - 0.5 10/04/2019 [facility] LIPIDS Trig 1130 <=149 mg/dL 10/04/2019 [facility] CHEM PANEL Lactic Acid Lvl 0.3 0.5 - 2.2 10/03/2019 [facility] CHEM PANEL Procalcitonin Lvl <0.05 0.00 - 0.10 10/03/2019 [facility] SPECIAL CHEMISTRY Hgb A1C 9.4 <=5.6 % 10/03/2019 [facility] URINE AND STOOL UA Turbidity Clear (10/03/19 3:18 AM) Clear 10/03/2019 [facility] URINE AND STOOL UA pH 5.0 5.0 - 8.0 10/03/2019 [facility] URINE AND STOOL UA Protein Negative mg/dL Negative mg/dL 10/03/2019 [facility] URINE AND STOOL UA Glucose 50 mg/dL Negative mg/dL 10/03/2019 [facility] URINE AND STOOL UA Ketones Trace mg/dL Negative mg/dL 10/03/2019 [facility] URINE AND STOOL UA Bili Negative *NA* (10/03/19 3:18 AM) Negative 10/03/2019 [facility] URINE AND STOOL UA Blood Negative (10/03/19 3:18 AM) Negative 10/03/2019 [facility] URINE AND STOOL UA Nitrite Negative (10/03/19 3:18 AM) Negative 10/03/2019 [facility] URINE AND STOOL UA Leuk Est Negative (10/03/19 3:18 AM) Negative 10/03/2019 [facility] URINE AND STOOL UA WBC 1 0 - 5 10/03/2019 [facility] URINE AND STOOL UA RBC 4 0 - 2 10/03/2019 [facility] URINE AND STOOL UA Bacteria Occasional /HPF None Seen /HPF 10/03/[address] [facility] URINE AND STOOL UA Mucus Few /LPF None Seen /LPF 10/03/2019 [facility] URINE AND STOOL UA Sq Epi None Seen 10/03/2019 [facility] URINE AND STOOL UA Color Ltyellow 10/03/2019 [facility] URINE AND STOOL UA Spec Grav >=1.050 *ABN* (10/03/19 3:18 AM) <=1.030 10/03/2019 [facility] URINE AND STOOL UA Urobilinogen <=1.0 mg/dL 0.1 - 1.0 10/03/2019 [facility] HEMATOLOGY RBC Morph Charo l (10/03/19 1:10 AM) Normal 10/03/2019 [facility] HEMATOLOGY Plt Morph Charo l (10/03/19 1:10 AM) Normal 10/03/2019 [facility] HEMATOLOGY Basophils # 0.1 0.0 - 0.2 10/03/2019 [facility] CHEM PANEL Glucose Lvl 97 70 - 99 02/23/2019 [facility] CHEM PANEL BUN 5 7 - 22 02/23/2019 [facility] CHEM PANEL Creatinine Lvl 0.81 0.50 - 1.40 02/23/2019 [facility] CHEM PANEL Sodium Lvl 138 135 - 145 02/23/2019 [facility] CHEM PANEL Potassium Lvl 4.2 3.5 - 5.1 02/23/2019 [facility] CHEM PANEL Chloride Lvl 107 95 - 109 02/23/2019 [facility] CHEM PANEL CO2 31 24 - 32 02/23/2019 [facility] CHEM PANEL Calcium Lvl 9.7 8.5 - 10.5 02/23/2019 [facility] CHEM PANEL AGAP 4.2 10.0 - 20.0 02/23/2019 [facility] CHEM PANEL eGFR 115 02/23/2019 Result Comment: The eGFR is calculated using the CKD-EPI formula. In most young, healthy individuals the eGFR will be >90 mL/min/1.73m2. The eGFR declines with age. An eGFR of 60-89 may be normal in some populations, particularly the elderly, for whom the CKD-EPI formula has not been extensively validated. Use of the eGFR is not recommended in the following populations:

Individuals with unstable creatinine concentrations, including patients and those with serious co-morbid conditions.

Patients with extremes in muscle mass or diet.

The data above are obtained from the National Kidney Disease Education Program (NKDEP) which additionally recommends that when the eGFR is used in patients with extremes of body mass index for purposes of drug dosing, the eGFR should be multiplied by the estimated BMI. [facility] CHEM PANEL Lipase Lvl 433 73 - 393 02/23/2019 [facility] CHEM PANEL Magnesium Lvl 2.2 1.8 - 2.4 02/23/2019 [facility] C-REACTIVE PROTEIN 6.5 <=2.9 mg/L 02/23/2019 [facility] CHEM PANEL Glucose Lvl 91 70 - 99 02/22/2019 [facility] CHEM PANEL BUN 6 7 - 22 02/22/2019 [facility] CHEM PANEL Creatinine Lvl 0.74 0.50 - 1.40 02/22/2019 [facility] CHEM PANEL Sodium Lvl 139 135 - 145 02/22/2019 [facility] CHEM PANEL Potassium Lvl 3.9 3.5 - 5.1 02/22/2019 [facility] CHEM PANEL Chloride Lvl 106 95 - 109 02/22/2019 [facility] CHEM PANEL CO2 28 24 - 32 02/22/2019 [facility] CHEM PANEL Calcium Lvl 9.7 8.5 - 10.5 02/22/2019 [facility] CHEM PANEL AGAP 8.9 10.0 - 20.0 02/22/2019 [facility] CHEM PANEL eGFR 120 02/22/2019 Result Comment: The eGFR is calculated using the CKD-EPI formula. In most young, healthy individuals the eGFR will be >90 mL/min/1.73m2. The eGFR declines with age. An eGFR of 60-89 may be normal in some populations, particularly the elderly, for whom the CKD-EPI formula has not been extensively validated. Use of the eGFR is not recommended in the following populations:

Individuals with unstable creatinine concentrations, including patients and those with serious co-morbid conditions.

Patients with extremes in muscle mass or diet.

The data above are obtained from the National Kidney Disease Education Program (NKDEP) which additionally recommends that when the eGFR is used in patients with extremes of body mass index for purposes of drug dosing, the eGFR should be multiplied by the estimated BMI. [facility] CHEM PANEL Lipase Lvl 487 73 - 393 02/22/2019 [facility] CHEM PANEL Magnesium Lvl 2.2 1.8 - 2.4 02/22/2019 [facility] CHEM PANEL Phosphorus 4.4 2.5 - 4.5 02/22/2019 [facility] C-REACTIVE PROTEIN 8.6 <=2.9 mg/L 02/22/2019 [facility] CHEM PANEL Total Protein 7.4 6.4 - 8.4 02/21/2019 [facility] CHEM PANEL Albumin Lvl 3.9 3.5 - 5.0 02/21/2019 [facility] CHEM PANEL ALT 108 0 - 65 02/21/2019 [facility] CHEM PANEL AST 62 0 - 37 02/21/2019 [facility] CHEM PANEL Alk Phos 75 39 - 136 02/21/2019 [facility] CHEM PANEL Bili Total 0.5 0.2 - 1.3 02/21/2019 [facility] CHEM PANEL Bili Direct 0.1 0.0 - 0.3 02/21/2019 [facility] CHEM PANEL Globulin 3.5 2.7 - 4.2 02/21/2019 [facility] CHEM PANEL A/G Ratio 1.1 0.7 - 1.6 02/21/2019 [facility] CHEM PANEL Bili Indirect 0.4 0.0 - 1.0 02/21/2019 [facility] CHEM PANEL Lipase Lvl 718 73 - 393 02/21/2019 [facility] LIPIDS Trig 288 <=149 mg/dL 02/21/2019 [facility] CHEM PANEL Total Protein 7.3 6.4 - 8.4 02/20/2019 [facility] CHEM PANEL Albumin Lvl 3.8 3.5 - 5.0 02/20/2019 [facility] CHEM PANEL ALT 115 0 - 65 02/20/2019 [facility] CHEM PANEL AST 65 0 - 37 02/20/2019 [facility] CHEM PANEL Alk Phos 81 39 - 136 02/20/2019 [facility] CHEM PANEL Bili Total 0.4 0.2 - 1.3 02/20/2019 [facility] CHEM PANEL Bili Direct 0.1 0.0 - 0.3 02/20/2019 [facility] CHEM PANEL Globulin 3.5 2.7 - 4.2 02/20/2019 [facility] CHEM PANEL A/G Ratio 1.1 0.7 - 1.6 02/20/2019 [facility] CHEM PANEL Bili Indirect 0.3 0.0 - 1.0 02/20/2019 [facility] LIPIDS Trig 408 <=149 mg/dL 02/20/2019 [facility] CHEM PANEL Glucose Lvl 103 70 - 99 2019 [facility] CHEM PANEL BUN 7 7 - 22 2019 [facility] CHEM PANEL Creatinine Lvl 0.70 0.50 - 1.40 2019 [facility] CHEM PANEL Sodium Lvl 139 135 - 145 2019 [facility] CHEM PANEL Potassium Lvl 4.2 3.5 - 5.1 2019 [facility] CHEM PANEL Chloride Lvl 108 95 - 109 2019 [facility] CHEM PANEL CO2 27 24 - 32 2019 [facility] CHEM PANEL Calcium Lvl 9.5 8.5 - 10.5 2019 [facility] CHEM PANEL Total Protein 6.6 6.4 - 8.4 2019 [facility] CHEM PANEL Albumin Lvl 3.3 3.5 - 5.0 2019 [facility] CHEM PANEL ALT 113 0 - 65 2019 [facility] CHEM PANEL AST 76 0 - 37 2019 [facility] CHEM PANEL Alk Phos 79 39 - 136 2019 [facility] CHEM PANEL Bili Total 0.7 0.2 - 1.3 2019 [facility] CHEM PANEL AGAP 8.2 10.0 - 20.0 2019 [facility] CHEM PANEL B/C Ratio 10 6 - 25 2019 [facility] CHEM PANEL Globulin 3.3 2.7 - 4.2 2019 [facility] CHEM PANEL A/G Ratio 1.0 0.7 - 1.6 2019 [facility] CHEM PANEL eGFR 122 2019 Result Comment: The eGFR is calculated using the CKD-EPI formula. In most young, healthy individuals the eGFR will be >90 mL/min/1.73m2. The eGFR declines with age. An eGFR of 60-89 may be normal in some populations, particularly the elderly, for whom the CKD-EPI formula has not been extensively validated. Use of the eGFR is not recommended in the following populations:

Individuals with unstable creatinine concentrations, including patients and those with serious co-morbid conditions.

Patients with extremes in muscle mass or diet.

The data above are obtained from the National Kidney Disease Education Program (NKDEP) which additionally recommends that when the eGFR is used in patients with extremes of body mass index for purposes of drug dosing, the eGFR should be multiplied by the estimated BMI. [facility] LIPIDS Trig 421 <=149 mg/dL 2019 [facility] CHEM PANEL B/C Ratio 8 6 - 25 02/18/2019 [facility] HEMATOLOGY Segs 64.7 45.0 - 75.0 02/18/2019 [facility] HEMATOLOGY Lymphocytes 21.6 20.0 - 40.0 02/18/2019 [facility] HEMATOLOGY Monocytes 9.3 2.0 - 12.0 02/18/2019 [facility] HEMATOLOGY Eosinophils 3.8 0.0 - 4.0 02/18/2019 [facility] HEMATOLOGY Basophils 0.6 0.0 - 1.0 02/18/2019 [facility] HEMATOLOGY Neutrophils # 3.9 1.5 - 8.1 02/18/2019 [facility] HEMATOLOGY Lymphocytes # 1.3 1.0 - 5.5 02/18/2019 [facility] HEMATOLOGY Monocytes # 0.6 0.0 - 0.8 02/18/2019 [facility] HEMATOLOGY Eosinophils # 0.2 0.0 - 0.5 02/18/2019 [facility] HEMATOLOGY WBC 6.0 3.7 - 10.4 02/18/2019 [facility] HEMATOLOGY RBC 4.93 4.70 - 6.10 02/18/2019 [facility] HEMATOLOGY Hgb 14.2 14.0 - 18.0 02/18/2019 [facility] HEMATOLOGY Hct 42.3 42.0 - 54.0 02/18/2019 [facility] HEMATOLOGY MCV 85.8 80.0 - 94.0 02/18/2019 [facility] HEMATOLOGY MCH 28.9 27.0 - 31.0 02/18/2019 [facility] MCHC 33.6 32.0 - 36.0 02/18/2019 [facility] HEMATOLOGY RDW 13.4 11.5 - 14.5 02/18/2019 [facility] HEMATOLOGY Platelet 213 133 - 450 02/18/2019 [facility] HEMATOLOGY MPV 7.9 7.4 - 10.4 02/18/2019 [facility] HEMATOLOGY Segs 65.7 45.0 - 75.0 02/17/2019 [facility] HEMATOLOGY Lymphocytes 20.5 20.0 - 40.0 02/17/2019 [facility] HEMATOLOGY Monocytes 10.2 2.0 - 12.0 02/17/2019 [facility] HEMATOLOGY Eosinophils 2.9 0.0 - 4.0 02/17/2019 [facility] HEMATOLOGY Basophils 0.7 0.0 - 1.0 02/17/2019 [facility] HEMATOLOGY Neutrophils # 4.2 1.5 - 8.1 02/17/2019 [facility] HEMATOLOGY Lymphocytes # 1.3 1.0 - 5.5 02/17/2019 [facility] HEMATOLOGY Monocytes # 0.7 0.0 - 0.8 02/17/2019 [facility] HEMATOLOGY Eosinophils # 0.2 0.0 - 0.5 02/17/2019 [facility] HEMATOLOGY WBC 6.4 3.7 - 10.4 02/17/2019 [facility] HEMATOLOGY RBC 4.66 4.70 - 6.10 02/17/2019 [facility] HEMATOLOGY Hgb 13.6 14.0 - 18.0 02/17/2019 [facility] HEMATOLOGY Hct 40.2 42.0 - 54.0 02/17/2019 [facility] HEMATOLOGY MCV 86.3 80.0 - 94.0 02/17/2019 [facility] HEMATOLOGY MCH 29.2 27.0 - 31.0 02/17/2019 [facility] HEMATOLOGY MCHC 33.8 32.0 - 36.0 02/17/2019 [facility] HEMATOLOGY RDW 13.5 11.5 - 14.5 02/17/2019 [facility] HEMATOLOGY Platelet 211 133 - 450 02/17/2019 [facility] MPV 7.9 7.4 - 10.4 02/17/2019 [facility] CARDIAC ENZYMES Troponin-I <0.02 0.00 - 0.40 02/17/2019 [facility] CHEM PANEL B/C Ratio 21 6 - 25 02/17/2019 [facility] HEMATOLOGY WBC 10.0 3.7 - 10.4 02/17/2019 [facility] RBC 5.31 4.70 - 6.10 02/17/2019 [facility] Hgb 15.4 14.0 - 18.0 02/17/2019 [facility] HEMATOLOGY Hct 45.2 42.0 - 54.0 02/17/2019 [facility] MCV 85.1 80.0 - 94.0 02/17/2019 [facility] MCH 29.0 27.0 - 31.0 02/17/2019 [facility] MCHC 34.1 32.0 - 36.0 02/17/2019 [facility] RDW 13.3 11.5 - 14.5 02/17/2019 [facility] HEMATOLOGY Platelet 263 133 - 450 02/17/2019 [facility] HEMATOLOGY MPV 8.3 7.4 - 10.4 02/17/2019 [facility] HEMATOLOGY Segs 74.8 45.0 - 75.0 02/17/2019 [facility] Lymphocytes 15.7 20.0 - 40.0 02/17/2019 [facility] HEMATOLOGY Monocytes 8.3 2.0 - 12.0 02/17/2019 [facility] HEMATOLOGY Eosinophils 0.8 0.0 - 4.0 02/17/2019 [facility] HEMATOLOGY Basophils 0.4 0.0 - 1.0 02/17/2019 [facility] HEMATOLOGY Neutrophils # 7.5 1.5 - 8.1 02/17/2019 [facility] HEMATOLOGY Lymphocytes # 1.6 1.0 - 5.5 02/17/2019 [facility] HEMATOLOGY Monocytes # 0.8 0.0 - 0.8 02/17/2019 [facility] HEMATOLOGY Eosinophils # 0.1 0.0 - 0.5 02/17/2019 [facility] LIPIDS Chol 204 <=199 mg/dL 02/17/2019 [facility] LIPIDS HDL 27 >=61 mg/dL 02/17/2019 [facility] LIPIDS CHD Risk 7.56 4.00 - 7.30 02/17/2019 [facility] LIPIDS LDL (Calculated) See Note mg/dL <=99 mg/dL 02/17/2019 Result Comment: LDL cholesterol cannot b e calculated due to very high triglycerides (>400 mg/dL). Recommend Direct LDL if clinically indicated. [facility] LIPIDS VLDL See Note 5 *NA* (02/17/19 3:35 AM) 02/17/2019 Result Comment: VLDL - Carmen sterol level cannot be accurately calculated due to very high triglycerides (>400 mg/dL). [facility] URINE AND STOOL UA Color Yellow *NA* (02/17/19 3:35 AM) Yellow 02/17/2019 [facility] URINE AND STOOL UA Turbidity Clear (02/17/19 3:35 AM) Clear 02/17/2019 [facility] URINE AND STOOL UA Spec Grav 1.029 <=1.030 02/17/2019 [facility] URINE AND STOOL UA pH 5.0 5.0 - 8.0 02/17/2019 [facility] URINE AND STOOL UA Protein 30 mg/dL Negative mg/dL 02/17/2019 [facility] URINE AND STOOL UA Glucose Negative mg/dL Negative mg/dL 02/17/2019 [facility] URINE AND STOOL UA Ketones Trace mg/dL Negative mg/dL 02/17/2019 [facility] URINE AND STOOL UA Bili Negative *NA* (02/17/19 3:35 AM) Negative 02/17/2019 [facility] URINE AND STOOL UA Blood Negative (02/17/19 3:35 AM) Negative 02/17/2019 [facility] URINE AND STOOL UA Nitrite Negative (02/17/19 3:35 AM) Negative 02/17/2019 [facility] URINE AND STOOL UA Leuk Est Negative (02/17/19 3:35 AM) Negative 02/17/2019 [facility] URINE AND STOOL UA Sq Epi Occasional /LPF Few /LPF 02/17/2019 [facility] URINE AND STOOL UA WBC 1 0 - 5 02/17/2019 [facility] URINE AND STOOL UA RBC 1 0 - 2 02/17/2019 [facility] URINE AND STOOL UA Mucus Few /LPF None Seen /LPF 02/17/2019 [facility] URINE AND STOOL UA Urobilinogen <=1.0 mg/dL 0.1 - 1.0 02/17/2019 [facility] URINE AND STOOL UA Gran Cast 1 02/17/2019 [facility] CHEM PANEL Lipase Lvl 515 73 - 393 12/02/2018 [facility] LIPIDS Trig 467 <=149 mg/dL 12/02/2018 [facility] CHEM PANEL Glucose Lvl 160 70 - 99 12/01/2018 [facility] CHEM PANEL BUN 11 7 - 22 12/01/2018 [facility] CHEM PANEL Creatinine Lvl 0.85 0.50 - 1.40 12/01/2018 [facility] CHEM PANEL Sodium Lvl 135 135 - 145 12/01/2018 [facility] CHEM PANEL Potassium Lvl 3.7 3.5 - 5.1 12/01/2018 [facility] CHEM PANEL Chloride Lvl 101 95 - 109 12/01/2018 [facility] CHEM PANEL CO2 26 24 - 32 12/01/2018 [facility] CHEM PANEL Calcium Lvl 9.5 8.5 - 10.5 12/01/2018 [facility] CHEM PANEL Total Protein 7.3 6.4 - 8.4 12/01/2018 [facility] CHEM PANEL Albumin Lvl 3.4 3.5 - 5.0 12/01/2018 [facility] CHEM PANEL ALT 158 0 - 65 12/01/2018 [facility] CHEM PANEL AST 68 0 - 37 12/01/2018 [facility] CHEM PANEL Alk Phos 85 39 - 136 12/01/2018 [facility] CHEM PANEL Bili Total 0.7 0.2 - 1.3 12/01/2018 [facility] CHEM PANEL AGAP 11.7 10.0 - 20.0 12/01/2018 [facility] CHEM PANEL B/C Ratio 13 6 - 25 12/01/2018 [facility] CHEM PANEL Globulin 3.9 2.7 - 4.2 12/01/2018 [facility] CHEM PANEL A/G Ratio 0.9 0.7 - 1.6 12/01/2018 [facility] CHEM PANEL eGFR 114 12/01/2018 Result Comment: The eGFR is calculated using the CKD-EPI formula. In most young, healthy individuals the eGFR will be >90 mL/min/1.73m2. The eGFR declines with age. An eGFR of 60-89 may be normal in some populations, particularly the elderly, for whom the CKD-EPI formula has not been extensively validated. Use of the eGFR is not recommended in the following populations:

Individuals with unstable creatinine concentrations, including patients and those with serious co-morbid conditions.

Patients with extremes in muscle mass or diet.

The data above are obtained from the National Kidney Disease Education Program (NKDEP) which additionally recommends that when the eGFR is used in patients with extremes of body mass index for purposes of drug dosing, the eGFR should be multiplied by the estimated BMI. [facility] CHEM PANEL Lipase Lvl 540 73 - 393 12/01/2018 [facility] CHEM PANEL Phosphorus 3.4 2.5 - 4.5 12/01/2018 [facility] CHEM PANEL Magnesium Lvl 2.1 1.8 - 2.4 12/01/2018 [facility] HEMATOLOGY WBC 6.2 3.7 - 10.4 12/01/2018 [facility] RBC 4.80 4.70 - 6.10 12/01/2018 [facility] Hgb 14.3 14.0 - 18.0 12/01/2018 [facility] Hct 42.1 42.0 - 54.0 12/01/2018 [facility] MCV 87.9 80.0 - 94.0 12/01/2018 [facility] MCH 29.8 27.0 - 31.0 12/01/2018 [facility] MCHC 33.9 32.0 - 36.0 12/01/2018 [facility] RDW 13.0 11.5 - 14.5 12/01/2018 [facility] Platelet 255 133 - 450 12/01/2018 [facility] MPV 7.9 7.4 - 10.4 12/01/2018 [facility] Segs 60.5 45.0 - 75.0 12/01/2018 [facility] Lymphocytes 24.3 20.0 - 40.0 12/01/2018 [facility] Monocytes 9.8 2.0 - 12.0 12/01/2018 [facility] HEMATOLOGY Eosinophils 4.7 0.0 - 4.0 12/01/2018 [facility] HEMATOLOGY Basophils 0.7 0.0 - 1.0 12/01/2018 [facility] HEMATOLOGY Neutrophils # 3.7 1.5 - 8.1 12/01/2018 [facility] HEMATOLOGY Lymphocytes # 1.5 1.0 - 5.5 12/01/2018 [facility] HEMATOLOGY Monocytes # 0.6 0.0 - 0.8 12/01/2018 [facility] HEMATOLOGY Eosinophils # 0.3 0.0 - 0.5 12/01/2018 [facility] IMMUNOLOGY C-REACTIVE PROTEIN 77.8 <=2.9 mg/L 12/01/2018 [facility] LIPIDS Trig 549 <=149 mg/dL 12/01/2018 [facility] CHEM PANEL Lipase Lvl 323 73 - 393 11/30/2018 [facility] CHEM PANEL Glucose Lvl 52 70 - 99 11/30/2018 [facility] CHEM PANEL BUN 4 7 - 22 11/30/2018 [facility] CHEM PANEL Creatinine Lvl 0.78 0.50 - 1.40 11/30/2018 [facility] CHEM PANEL Sodium Lvl 136 135 - 145 11/30/2018 [facility] CHEM PANEL Potassium Lvl 4.2 3.5 - 5.1 11/30/2018 [facility] CHEM PANEL Chloride Lvl 101 95 - 109 11/30/2018 [facility] CHEM PANEL CO2 29 24 - 32 11/30/2018 [facility] CHEM PANEL Calcium Lvl 9.4 8.5 - 10.5 11/30/2018 [facility] CHEM PANEL AGAP 10.2 10.0 - 20.0 11/30/2018 [facility] CHEM PANEL eGFR 118 11/30/2018 Result Comment: The eGFR is calculated using the CKD-EPI formula. In most young, healthy individuals the eGFR will be >90 mL/min/1.73m2. The eGFR declines with age. An eGFR of 60-89 may be normal in some populations, particularly the elderly, for whom the CKD-EPI formula has not been extensively validated. Use of the eGFR is not recommended in the following populations:

Individuals with unstable creatinine concentrations, including patients and those with serious co-morbid conditions.

Patients with extremes in muscle mass or diet.

The data above are obtained from the National Kidney Disease Education Program (NKDEP) which additionally recommends that when the eGFR is used in patients with extremes of body mass index for purposes of drug dosing, the eGFR should be multiplied by the estimated BMI. [facility] HEMATOLOGY WBC 7.6 3.7 - 10.4 11/30/2018 [facility] HEMATOLOGY RBC 4.94 4.70 - 6.10 11/30/2018 [facility] HEMATOLOGY Hgb 14.5 14.0 - 18.0 11/30/2018 [facility] HEMATOLOGY Hct 43.4 42.0 - 54.0 11/30/2018 [facility] HEMATOLOGY MCV 87.8 80.0 - 94.0 11/30/2018 [facility] HEMATOLOGY MCH 29.2 27.0 - 31.0 11/30/2018 [facility] MCHC 33.3 32.0 - 36.0 11/30/2018 [facility] HEMATOLOGY RDW 13.1 11.5 - 14.5 11/30/2018 [facility] HEMATOLOGY Platelet 253 133 - 450 11/30/2018 [facility] HEMATOLOGY MPV 8.3 7.4 - 10.4 11/30/2018 [facility] HEMATOLOGY Segs 62.4 45.0 - 75.0 11/30/2018 [facility] HEMATOLOGY Lymphocytes 23.3 20.0 - 40.0 11/30/2018 [facility] HEMATOLOGY Monocytes 9.5 2.0 - 12.0 11/30/2018 [facility] HEMATOLOGY Eosinophils 4.0 0.0 - 4.0 11/30/2018 [facility] HEMATOLOGY Basophils 0.8 0.0 - 1.0 11/30/2018 [facility] HEMATOLOGY Neutrophils # 4.8 1.5 - 8.1 11/30/2018 [facility] HEMATOLOGY Lymphocytes # 1.8 1.0 - 5.5 11/30/2018 [facility] HEMATOLOGY Monocytes # 0.7 0.0 - 0.8 11/30/2018 [facility] HEMATOLOGY Eosinophils # 0.3 0.0 - 0.5 11/30/2018 [facility] HEMATOLOGY Basophils # 0.1 0.0 - 0.2 11/30/2018 [facility] LIPIDS Trig 608 <=149 mg/dL 11/30/2018 [facility] CHEM PANEL Glucose Lvl 70 70 - 99 11/30/2018 [facility] CHEM PANEL BUN 4 7 - 22 11/30/2018 [facility] CHEM PANEL Creatinine Lvl 0.76 0.50 - 1.40 11/30/2018 [facility] CHEM PANEL Sodium Lvl 133 135 - 145 11/30/2018 [facility] CHEM PANEL Potassium Lvl 3.6 3.5 - 5.1 11/30/2018 [facility] CHEM PANEL Chloride Lvl 101 95 - 109 11/30/2018 [facility] CHEM PANEL CO2 25 24 - 32 11/30/2018 [facility] CHEM PANEL Calcium Lvl 8.9 8.5 - 10.5 11/30/2018 [facility] CHEM PANEL AGAP 10.6 10.0 - 20.0 11/30/2018 [facility] CHEM PANEL eGFR 119 11/30/2018 Result Comment: The eGFR is calculated using the CKD-EPI formula. In most young, healthy individuals the eGFR will be >90 mL/min/1.73m2. The eGFR declines with age. An eGFR of 60-89 may be normal in some populations, particularly the elderly, for whom the CKD-EPI formula has not been extensively validated. Use of the eGFR is not recommended in the following populations:

Individuals with unstable creatinine concentrations, including patients and those with serious co-morbid conditions.

Patients with extremes in muscle mass or diet.

The data above are obtained from the National Kidney Disease Education Program (NKDEP) which additionally recommends that when the eGFR is used in patients with extremes of body mass index for purposes of drug dosing, the eGFR should be multiplied by the estimated BMI. [facility] CHEM PANEL Magnesium Lvl 2.1 1.8 - 2.4 11/30/2018 [facility] CHEM PANEL Phosphorus 3.5 2.5 - 4.5 11/30/2018 [facility] CHEM PANEL Magnesium Lvl 1.9 1.8 - 2.4 11/29/2018 [facility] CHEM PANEL Phosphorus 3.6 2.5 - 4.5 11/29/2018 [facility] BACTERIAL - SEROLOGY MRSA by PCR Negative (11/28/18 10:41 AM) 11/28/2018 [facility] CHEM PANEL B/C Ratio 12 6 - 25 11/28/2018 [facility] CHEM PANEL Total Protein 7.3 6.4 - 8.4 11/28/2018 [facility] CHEM PANEL Albumin Lvl 3.9 3.5 - 5.0 11/28/2018 [facility] CHEM PANEL Globulin 3.4 2.7 - 4.2 11/28/2018 [facility] CHEM PANEL A/G Ratio 1.1 0.7 - 1.6 11/28/2018 [facility] CHEM PANEL AST 32 0 - 37 11/28/2018 [facility] CHEM PANEL Alk Phos 74 39 - 136 11/28/2018 [facility] CHEM PANEL Bili Total 0.9 0.2 - 1.3 11/28/2018 [facility] CHEM PANEL ALT 54 0 - 65 11/28/2018 Result Comment: lipemic specimen [facility] CHEM PANEL Ketone Quantitative 1.91 <=0.27 mmol/L 11/28/2018 [facility] HEMATOLOGY WBC 10.8 3.7 - 10.4 11/28/2018 [facility] HEMATOLOGY RBC 5.28 4.70 - 6.10 11/28/2018 [facility] HEMATOLOGY Hgb 15.7 14.0 - 18.0 11/28/2018 [facility] HEMATOLOGY Hct 45.9 42.0 - 54.0 11/28/2018 [facility] HEMATOLOGY MCV 86.9 80.0 - 94.0 11/28/2018 [facility] HEMATOLOGY MCH 29.7 27.0 - 31.0 11/28/2018 [facility] HEMATOLOGY MCHC 34.2 32.0 - 36.0 11/28/2018 [facility] HEMATOLOGY RDW 12.7 11.5 - 14.5 11/28/2018 [facility] HEMATOLOGY Platelet 245 133 - 450 11/28/2018 [facility] HEMATOLOGY MPV 8.3 7.4 - 10.4 11/28/2018 [facility] HEMATOLOGY Segs 85.5 45.0 - 75.0 11/28/2018 [facility] HEMATOLOGY Lymphocytes 7.6 20.0 - 40.0 11/28/2018 [facility] HEMATOLOGY Monocytes 6.4 2.0 - 12.0 11/28/2018 [facility] HEMATOLOGY Eosinophils 0.2 0.0 - 4.0 11/28/2018 [facility] HEMATOLOGY Basophils 0.3 0.0 - 1.0 11/28/2018 [facility] HEMATOLOGY Neutrophils # 9.2 1.5 - 8.1 11/28/2018 [facility] HEMATOLOGY Lymphocytes # 0.8 1.0 - 5.5 11/28/2018 [facility] HEMATOLOGY Monocytes # 0.7 0.0 - 0.8 11/28/2018 [facility] SPECIAL CHEMISTRY Hgb A1C 8.5 <=5.6 % 11/28/2018 [facility] LIPIDS Chol 276 <=199 mg/dL 11/28/2018 [facility] LIPIDS HDL 25 >=61 mg/dL 11/28/2018 [facility] LIPIDS CHD Risk 11.04 4.00 - 7.30 11/28/2018 [facility] LIPIDS LDL (Calculated) See Note mg/dL <=99 mg/dL 11/28/2018 Result Comment: LDL cholesterol cannot b e calculated due to very high triglycerides (>400 mg/dL). Recommend Direct LDL if clinically indicated. [facility] LIPIDS VLDL See Note 7 *NA* (11/28/18 4:32 AM) 11/28/2018 Result Comment: VLDL - Cholesterol level cannot be accurately calculated due to very high triglycerides (>400 mg/dL). [facility] URINE AND STOOL UA Color Yellow *NA* (11/28/18 1:16 AM) Yellow 11/28/2018 [facility] URINE AND STOOL UA Turbidity Clear (11/28/18 1:16 AM) Clear 11/28/2018 [facility] URINE AND STOOL UA Spec Grav 1.033 <=1.030 11/28/2018 [facility] URINE AND STOOL UA pH 5.0 5.0 - 8.0 11/28/2018 [facility] URINE AND STOOL UA Protein 100 mg/dL Negative mg/dL 11/28/2018 [facility] URINE AND STOOL UA Glucose 500 mg/dL Negative mg/dL 11/28/2018 [facility] URINE AND STOOL UA Ketones 20 mg/dL Negative mg/dL 11/28/2018 [facility] URINE AND STOOL UA Bili Negative *NA* (11/28/18 1:16 AM) Negative 11/28/2018 [facility] URINE AND STOOL UA Blood Negative (11/28/18 1:16 AM) Negative 11/28/2018 [facility] URINE AND STOOL UA Nitrite Negative (11/28/18 1:16 AM) Negative 11/28/2018 [facility] URINE AND STOOL UA Leuk Est Negative (11/28/18 1:16 AM) Negative 11/28/2018 [facility] URINE AND STOOL UA Sq Epi Occasional /LPF Few /LPF 11/28/2018 [facility] URINE AND STOOL UA WBC 2 0 - 5 11/28/2018 [facility] URINE AND STOOL UA RBC 2 0 - 2 11/28/2018 [facility] URINE AND STOOL UA Mucus Few /LPF None Seen /LPF 11/28/2018 [facility] URINE AND STOOL UA Urobilinogen <=1.0 mg/dL 0.1 - 1.0 11/28/2018 [facility] CHEM PANEL B/C Ratio 15 6 - 25 11/28/2018 [facility] CHEM PANEL Albumin Lvl 4.1 3.5 - 5.0 11/28/2018 [facility] CHEM PANEL Alk Phos 86 39 - 136 11/28/2018 [facility] CHEM PANEL Bili Total 0.8 0.2 - 1.3 11/28/2018 [facility] CHEM PANEL Total Protein 7.5 6.4 - 8.4 11/28/2018 [facility] CHEM PANEL A/G Ratio 1.0 0.7 - 1.6 11/28/2018 [facility] CHEM PANEL ALT 68 0 - 65 11/28/2018 Result Comment: lipemic specimen, lipoclear used for ASL, AST and TP, mfb1 00:57 [facility] CHEM PANEL AST 71 0 - 37 11/28/2018 [facility] HEMATOLOGY Eosinophils # 0.1 0.0 - 0.5 11/28/2018 [facility] HEMATOLOGY Basophils # 0.1 0.0 - 0.2 11/28/2018 [facility] ELECTROLYTES Potassium Lvl 3.2 3.5 - 5.1 09/12/2017 [facility] CHEM PANEL eGFR 139 09/12/2017 Result Comment: The eGFR is calculated using the CKD-EPI formula. In most young, healthy individuals the eGFR will be >90 mL/min/1.73m2. The eGFR declines with age. An eGFR of 60-89 may be normal in some populations, particularly the elderly, for whom the CKD-EPI formula has not been extensively validated. Use of the eGFR is not recommended in the following populations:

Individuals with unstable creatinine concentrations, including patients and those with serious co-morbid conditions.

Patients with extremes in muscle mass or diet.

The data above are obtained from the National Kidney Disease Education Program (NKDEP) which additionally recommends that when the eGFR is used in patients with extremes of body mass index for purposes of drug dosing, the eGFR should be multiplied by the estimated BMI. [facility] CHEM PANEL Potassium Lvl 3.0 3.5 - 5.1 09/12/2017 Result Comment: Critical Result(s) bailey d to GIOVANNA BLEVINS 09/12/2017 05:40 by REGINALDO. Read back OK. [facility] CHEM PANEL Creatinine Lvl 0.53 0.50 - 1.40 09/12/2017 [facility] CHEM PANEL Sodium Lvl 142 135 - 145 09/12/2017 [facility] CHEM PANEL Glucose Lvl 201 70 - 99 09/12/2017 [facility] CHEM PANEL BUN 4 7 - 22 09/12/2017 [facility] CHEM PANEL Chloride Lvl 105 95 - 109 09/12/2017 [facility] CHEM PANEL CO2 30 24 - 32 09/12/2017 [facility] CHEM PANEL AGAP 10.0 10.0 - 20.0 09/12/2017 [facility] CHEM PANEL Calcium Lvl 8.2 8.5 - 10.5 09/12/2017 [facility] HEMATOLOGY MCH 29.3 27.0 - 31.0 09/12/2017 [facility] HEMATOLOGY Platelet 193 133 - 450 09/12/2017 [facility] MPV 9.0 7.4 - 10.4 09/12/2017 [facility] RDW 13.1 11.5 - 14.5 09/12/2017 [facility] MCHC 34.2 32.0 - 36.0 09/12/2017 [facility] HEMATOLOGY MCV 85.7 80.0 - 94.0 09/12/2017 [facility] HEMATOLOGY Hct 37.8 42.0 - 54.0 09/12/2017 [facility] WBC 5.2 3.7 - 10.4 09/12/2017 [facility] Hgb 12.9 14.0 - 18.0 09/12/2017 [facility] HEMATOLOGY RBC 4.41 4.70 - 6.10 09/12/2017 [facility] HEMATOLOGY Monocytes # 0.6 0.0 - 0.8 09/12/2017 [facility] HEMATOLOGY Eosinophils # 0.1 0.0 - 0.5 09/12/2017 [facility] HEMATOLOGY Neutrophils # 2.9 1.5 - 8.1 09/12/2017 [facility] HEMATOLOGY Lymphocytes # 1.6 1.0 - 5.5 09/12/2017 [facility] HEMATOLOGY Basophils 0.6 0.0 - 1.0 09/12/2017 [facility] HEMATOLOGY Monocytes 10.9 2.0 - 12.0 09/12/2017 [facility] HEMATOLOGY Eosinophils 2.4 0.0 - 4.0 09/12/2017 [facility] HEMATOLOGY Lymphocytes 29.9 20.0 - 40.0 09/12/2017 [facility] HEMATOLOGY Segs 56.2 45.0 - 75.0 09/12/2017 [facility] HEMATOLOGY Hct 39.7 42.0 - 54.0 09/12/2017 [facility] HEMATOLOGY Hgb 13.5 14.0 - 18.0 09/12/2017 [facility] CHEM PANEL Magnesium Lvl 2.2 1.8 - 2.4 09/11/2017 [facility] CHEM PANEL Phosphorus 4.0 2.5 - 4.5 09/11/2017 [facility] CHEM PANEL eGFR 118 09/11/2017 Result Comment: The eGFR is calculated using the CKD-EPI formula. In most young, healthy individuals the eGFR will be >90 mL/min/1.73m2. The eGFR declines with age. An eGFR of 60-89 may be normal in some populations, particularly the elderly, for whom the CKD-EPI formula has not been extensively validated. Use of the eGFR is not recommended in the following populations:

Individuals with unstable creatinine concentrations, including patients and those with serious co-morbid conditions.

Patients with extremes in muscle mass or diet.

The data above are obtained from the National Kidney Disease Education Program (NKDEP) which additionally recommends that when the eGFR is used in patients with extremes of body mass index for purposes of drug dosing, the eGFR should be multiplied by the estimated BMI. [facility] CHEM PANEL Glucose Lvl 204 70 - 99 09/11/2017 [facility] CHEM PANEL BUN 6 7 - 22 09/11/2017 [facility] CHEM PANEL Creatinine Lvl 0.78 0.50 - 1.40 09/11/2017 [facility] CHEM PANEL Sodium Lvl 141 135 - 145 09/11/2017 [facility] CHEM PANEL CO2 28 24 - 32 09/11/2017 [facility] CHEM PANEL AGAP 11.5 10.0 - 20.0 09/11/2017 [facility] CHEM PANEL Calcium Lvl 9.1 8.5 - 10.5 09/11/2017 [facility] CHEM PANEL Potassium Lvl 3.5 3.5 - 5.1 09/11/2017 [facility] CHEM PANEL Chloride Lvl 105 95 - 109 09/11/2017 [facility] HEMATOLOGY Basophils 0.5 0.0 - 1.0 09/11/2017 [facility] HEMATOLOGY Neutrophils # 2.2 1.5 - 8.1 09/11/2017 [facility] HEMATOLOGY Monocytes 10.7 2.0 - 12.0 09/11/2017 [facility] HEMATOLOGY Eosinophils 3.2 0.0 - 4.0 09/11/2017 [facility] HEMATOLOGY Lymphocytes 39.7 20.0 - 40.0 09/11/2017 [facility] Segs 45.9 45.0 - 75.0 09/11/2017 [facility] Eosinophils # 0.2 0.0 - 0.5 09/11/2017 [facility] Lymphocytes # 1.9 1.0 - 5.5 09/11/2017 [facility] Monocytes # 0.5 0.0 - 0.8 09/11/2017 [facility] RBC 4.94 4.70 - 6.10 09/11/2017 [facility] WBC 4.7 3.7 - 10.4 09/11/2017 [facility] Hgb 14.4 14.0 - 18.0 09/11/2017 [facility] Hct 42.3 42.0 - 54.0 09/11/2017 [facility] MCV 85.7 80.0 - 94.0 09/11/2017 [facility] MPV 9.5 7.4 - 10.4 09/11/2017 [facility] MCH 29.2 27.0 - 31.0 09/11/2017 [facility] MCHC 34.1 32.0 - 36.0 09/11/2017 [facility] Platelet 199 133 - 450 09/11/2017 [facility] RDW 13.5 11.5 - 14.5 09/11/2017 [facility] CARDIAC ENZYMES Troponin-I <0.02 0.00 - 0.40 09/10/2017 [facility] CARDIAC ENZYMES Total CK 65 12 - 191 09/10/2017 [facility] CHEM PANEL eGFR 141 09/10/2017 Result Comment: The eGFR is calculated using the CKD-EPI formula. In most young, healthy individuals the eGFR will be >90 mL/min/1.73m2. The eGFR declines with age. An eGFR of 60-89 may be normal in some populations, particularly the elderly, for whom the CKD-EPI formula has not been extensively validated. Use of the eGFR is not recommended in the following populations:

Individuals with unstable creatinine concentrations, including patients and those with serious co-morbid conditions.

Patients with extremes in muscle mass or diet.

The data above are obtained from the National Kidney Disease Education Program (NKDEP) which additionally recommends that when the eGFR is used in patients with extremes of body mass index for purposes of drug dosing, the eGFR should be multiplied by the estimated BMI. [facility] CHEM PANEL CO2 25 24 - 32 09/10/2017 [facility] CHEM PANEL Chloride Lvl 110 95 - 109 09/10/2017 [facility] CHEM PANEL Glucose Lvl 151 70 - 99 09/10/2017 [facility] CHEM PANEL BUN 3 7 - 22 09/10/2017 [facility] CHEM PANEL AGAP 12.3 10.0 - 20.0 09/10/2017 [facility] CHEM PANEL Calcium Lvl 8.6 8.5 - 10.5 09/10/2017 [facility] CHEM PANEL Sodium Lvl 144 135 - 145 09/10/2017 [facility] CHEM PANEL Creatinine Lvl 0.52 0.50 - 1.40 09/10/2017 [facility] CARDIAC ENZYMES Total CK 63 12 - 191 09/10/2017 [facility] CARDIAC ENZYMES Troponin-I <0.02 0.00 - 0.40 09/10/2017 [facility] CHEM PANEL Phosphorus 2.7 2.5 - 4.5 09/10/2017 [facility] CHEM PANEL Magnesium Lvl 2.5 1.8 - 2.4 09/10/2017 [facility] CHEM PANEL Ketone Quantitative 2.23 <=0.27 mmol/L 09/10/2017 [facility] HEMATOLOGY Segs 58.0 45.0 - 75.0 09/10/2017 [facility] HEMATOLOGY Monocytes 9.2 2.0 - 12.0 09/10/2017 [facility] HEMATOLOGY Lymphocytes 29.5 20.0 - 40.0 09/10/2017 [facility] HEMATOLOGY Eosinophils 2.5 0.0 - 4.0 09/10/2017 [facility] HEMATOLOGY Neutrophils # 3.0 1.5 - 8.1 09/10/2017 [facility] HEMATOLOGY Basophils 0.8 0.0 - 1.0 09/10/2017 [facility] HEMATOLOGY Monocytes # 0.5 0.0 - 0.8 09/10/2017 [facility] HEMATOLOGY Lymphocytes # 1.5 1.0 - 5.5 09/10/2017 [facility] HEMATOLOGY Basophils # 0.2 0.0 - 0.2 09/10/2017 [facility] HEMATOLOGY Eosinophils # 0.1 0.0 - 0.5 09/10/2017 [facility] HEMATOLOGY WBC 5.2 3.7 - 10.4 09/10/2017 [facility] HEMATOLOGY RBC 4.61 4.70 - 6.10 09/10/2017 [facility] HEMATOLOGY MCV 84.9 80.0 - 94.0 09/10/2017 [facility] HEMATOLOGY Platelet 217 133 - 450 09/10/2017 [facility] HEMATOLOGY MCHC 34.4 32.0 - 36.0 09/10/2017 [facility] HEMATOLOGY MPV 9.8 7.4 - 10.4 09/10/2017 [facility] HEMATOLOGY RDW 13.0 11.5 - 14.5 09/10/2017 [facility] HEMATOLOGY MCH 29.2 27.0 - 31.0 09/10/2017 [facility] CHEM PANEL Phosphorus 2.3 2.5 - 4.5 09/10/2017 [facility] CHEM PANEL Magnesium Lvl 1.8 1.8 - 2.4 09/10/2017 [facility] CHEM PANEL Ketone Quantitative 2.46 <=0.27 mmol/L 09/10/2017 [facility] CHEM PANEL Ketone Quantitative 3.73 <=0.27 mmol/L 09/09/2017 [facility] CHEM PANEL Lactic Acid Lvl <0.1 0.5 - 2.2 09/09/2017 [facility] SPECIAL CHEMISTRY Hgb A1C 10.2 <=5.6 % 09/09/2017 [facility] CARDIAC ENZYMES Troponin-I <0.02 ng/mL 0.00 - 0.40 09/09/2017 [facility] CHEM PANEL A/G Ratio 1.8 0.7 - 1.6 09/09/2017 [facility] CHEM PANEL B/C Ratio 12 6 - 25 09/09/2017 [facility] CHEM PANEL Globulin 2.6 2.7 - 4.2 09/09/2017 [facility] CHEM PANEL Albumin Lvl 4.6 3.5 - 5.0 09/09/2017 [facility] CHEM PANEL ALT 55 0 - 65 09/09/2017 [facility] CHEM PANEL AST 56 0 - 37 09/09/2017 [facility] CHEM PANEL Alk Phos 109 39 - 136 09/09/2017 [facility] CHEM PANEL Bili Total 0.4 0.2 - 1.3 09/09/2017 [facility] CHEM PANEL Total Protein 7.2 6.4 - 8.4 09/09/2017 [facility] CHEM PANEL Lipase Lvl 434 73 - 393 09/09/2017 [facility] HEMATOLOGY Basophils # 0.1 0.0 - 0.2 09/09/2017 [facility] URINE AND STOOL UA Color Ltyellow 09/09/2017 [facility] URINE AND STOOL UA Urobilinogen <=1.0 mg/dL 0.1 - 1.0 09/09/2017 [facility] URINE AND STOOL UA Spec Grav 1.032 <=1.030 09/09/2017 [facility] URINE AND STOOL UA pH 6.0 5.0 - 8.0 09/09/2017 [facility] URINE AND STOOL UA RBC 1 0 - 2 09/09/2017 [facility] URINE AND STOOL UA Turbidity Slight *ABN* (09/09/17 12:22 PM) Clear 09/09/2017 [facility] URINE AND STOOL UA Protein Negative mg/dL Negative mg/dL 09/09/2017 [facility] URINE AND STOOL UA WBC 1 0 - 5 09/09/2017 [facility] URINE AND STOOL UA Nitrite Negative (09/09/17 12:22 PM) Negative 09/09/2017 [facility] URINE AND STOOL UA Sq Epi Occasional /LPF Few /LPF 09/09/2017 [facility] URINE AND STOOL UA Leuk Est Negative (09/09/17 12:22 PM) Negative 09/09/2017 [facility] URINE AND STOOL UA Bili Negative *NA* (09/09/17 12:22 PM) Negative 09/09/2017 [facility] URINE AND STOOL UA Ketones 80 mg/dL Negative mg/dL 09/09/2017 [facility] URINE AND STOOL UA Glucose 500 mg/dL Negative mg/dL 09/09/2017 [facility] URINE AND STOOL UA Blood Negative (09/09/17 12:22 PM) Negative 09/09/2017 [facility] Pathology Reports No Data Provided for This Section Diagnostic Reports Report Value Date Source ED Abdomen/Pelvis IV contrast only CT Radiation Dose CTDIVOL = 0 (mGy): DLP = 1273.85 (mGy-cm) PROCEDURE INFORMATION: Exam: CT Abdomen And Pelvis With Contrast Exam date and time: 10/03/2019 2:03 AM Age: 34 years old Clinical indication: Pain; Additional info: /abd pain TECHNIQUE: Imaging protocol: Computed tomography of the abdomen and pelvis with intravenous contrast. Radiation optimization: All CT scans at this facility use at least one of these dose optimization techniques: automated exposure control; mA and/or kV adjustment per patient size (includes targeted exams where dose is matched to clinical indication); or iterative reconstruction. Contrast material: OMNIPAQUE; Contrast volume: 100 ml; Contrast route: INTRAVENOUS (IV); COMPARISON: ABDOMEN/PELVIS WO IV CONTRAST CT 02/17/2019 4:29 AM RADIATION DOSE METRICS: Total DLP (mGy-cm): 1273.85 FINDINGS: Liver: The liver is enlarged measuring 20.5 cm in diameter. The liver parenchyma is mildly hypodense. Gallbladder and bile ducts: The gallbladder is surgically absent. Pancreas: There is peripancreatic fat stranding involving the pancreatic head and uncinate process. Spleen: Normal. No splenomegaly. Adrenals: Normal. No mass. Kidneys and ureters: The kidneys demonstrate no renal or ureteral calculi, nor evidence of hydronephrosis or hydroureter. There is no gross evidence of masses. Stomach and bowel: There is mild wall thickening of the sigmoid colon and rectum. The small bowel is unremarkable. The stomach is unremarkable. Appendix: No evidence of appendicitis. Intraperitoneal space: Unremarkable. No free air. No significant fluid collection. Vasculature: Unremarkable. No abdominal aortic aneurysm. Lymph nodes: No evidence of lymphadenopathy. Bladder: Unremarkable as visualized. Reproductive: Unremarkable as visualized. Bones/joints: The visualized osseous structures are unremarkable. Soft tissues: Unremarkable. No evidence of soft tissue masses or hernias. IMPRESSION: 1. Mild changes of acute pancreatitis in volving the uncinate process of the pancreas. 2. Hepatomegaly with hepatic steatosis. 3. Proctocolitis of the sigmoid colon an d rectum. Tanya Peralta MD On 10/03/2019 02:15:05; [id number] 10/03/2019 [facility] Abdomen RUQ US PROCEDURE INFOR MATION: Exam: US Abdomen Limited, Right Upper Quadrant Exam date and time: 02/20/2019 1:46 PM Age: 34 years old Clinical indication: /persistant transaminitis and pain TECHNIQUE: Imaging protocol: Real-time ultrasound of the abdomen with image documentation. Examination was focused on the right upper quadrant. COMPARISON: ABDOMEN RUQ US 09/09/2017 2:00 PM FINDINGS: Liver: Enlarged 20.0 cm liver shows diffuse increased echogenicity without focal lesion. No masses. Gallbladder: Surgically absent by history. Common bile duct: Normal caliber up to 5.8 mm diameter. No stones. No dilation. Pancreas: Bowel gas obscures the pancreas. Right kidney: 11.4 x 6.8 x 6.3 cm the. No mass. No hydronephrosis. IMPRESSION: No acute findings. Hepatomegaly and hepatic steatosis Leoncio Duckworth MD On 02/20/2019 14:57:01; [id number] 02/20/2019 [facility] Abdomen/Pelvis wo IV contrast CT Radiation Dose CTDIVOL = 0 (mGy): DLP = 983.4 (mGy-cm) PROCEDURE INFORMATION: Exam: CT Abdomen And Pelvis Without Contrast Exam date and time: 02/17/2019 4:29 AM Age: 33 years old Clinical indication: Abdominal pain; Right upper quadrant (ruq); Patient HX: Ruq abd pain radiating to right back/flank. Patient states it feels like previous pancreatitis. Denies dyspnea/n/v/d. Pmh- HTN, high cholesterol, dm, pancreatitis; Additional info: /flank pain TECHNIQUE: Imaging protocol: Computed tomography of the abdomen and pelvis without contrast. Total DLP: 983.4 mGy-cm Radiation optimization: All CT scans at this facility use at least one of these dose optimization techniques: automated exposure control; mA and/or kV adjustment per patient size (includes targeted exams where dose is matched to clinical indication); or iterative reconstruction. COMPARISON: CT ED Abdomen/Pelvis IV contrast only 11/28/2018 2:00 AM FINDINGS: Liver: There is diffuse fatty infiltration of the liver. The liver is enlarged, measuring approximately 22 cm in sagittal length. Gallbladder and bile ducts: Cholecystectomy clips are in place. Pancreas: There is edema in the region of the pancreatic head. Spleen: Unremarkable. No splenomegaly. Adrenals: Unremarkable. No mass. Kidneys and ureters: Unremarkable. No hydronephrosis. Stomach and bowel: There is wall thickening of the proximal to mid duodenum, associated with surrounding edema. The stomach is grossly unremarkable. There is minimal colonic diverticulosis, without evidence of diverticulitis. Appendix: No evidence of appendicitis. Intraperitoneal space: No free air or free fluid are seen. Vasculature: The abdominal aorta is normal in caliber. Lymph nodes: No suspicious lymphadenopathy is identified. Bladder: Unremarkable as visualized. Reproductive: Unremarkable as visualized. Bones/joints: No acute bony abnormalities are seen. Soft tissues: Unremarkable. IMPRESSION: 1. Findings suggest acute pancreatitis a nd/or duodenitis. 2. Hepatic steatosis and hepatomegaly. 3. Minimal diverticulosis, without evide nce of diverticulitis. Dwayne Corey MD On 02/17/2019 05:22:30; [id number] 02/17/2019 [facility] Chest 1view DX PROCEDURE INFOR MATION: Exam: XR Chest, 1 View Exam date and time: 02/17/2019 1:31 AM Age: 33 years old Clinical indication: Pain; Other: Roq; Additional info: /ruq, RT flank pain TECHNIQUE: Imaging protocol: XR of the chest Views: 1 view. COMPARISON: No relevant prior studies available. FINDINGS: Lungs: Normal lung volumes. No consolidation. Pleural space: No pleural effusion. No pneumothorax. Heart/Mediastinum: Heart size is within normal limits. Bones/joints: Unremarkable. IMPRESSION: No acute cardiopulmonary findings. Sandra Garcia MD On 02/17/2019 01:58:00; [id number] 02/17/2019 [facility] ED Abdomen/Pelvis IV contrast only CT CT ABDOMEN AND PELVIS WITH IV CONTRAST CLINICAL INDICATION: - abd pain, RLQ, hx of pancreatitis. COMPARISON: 09/09/2017 TECHNIQUE: Helical imaging was performed from diaphragm through the symphysis with coronal and sagittal reconstructions. All CT scans at this location are performed using dose optimization techniques as appropriate to a performed exam including the following: Automated exposure control, adjustment of the mA and/or kV according to patient size (this includes techniques or standardized protocols for targeted exams where dose is matched to indication/reason for exam) and use of iterative reconstruction technique. IV CONTRAST: [address] Radiation Dose: DLP = 1373.46 mGy-cm FINDINGS: LOWER CHEST: The visualized lung bases are clear. LIVER: The liver is mildly prominent in size and demonstrates diffuse hypoattenuation suggesting fatty infiltration. GALLBLADDER: Cholecystectomy changes are noted. INTRAHEPATIC BILE DUCT AND EXTRAHEPATIC BILE DUCT: Unremarkable. PANCREAS: Mild to moderate proximal peripancreatic inflammatory changes are identified extending along the pancreaticoduodenal groove. The pancreas appears to demonstrate homogeneous enhancement. No pancreatic main duct dilatation is identified. No overt peripancreatic defined fluid collection is noted. SPLEEN: Unremarkable. ADRENALS: Unremarkable. KIDNEYS AND URETERS: Unremarkable. BOWEL: The small and large bowel are normal in caliber. No evidence of bowel wall thickening. Submucosal fatty infiltration of the distal stomach and duodenum is identified, similar to the comparison study and may represent a chronic inflammatory process. APPENDIX: The appendix is normal in caliber. OTHER: No pneumoperitoneum. Small fat-containing right inguinal hernia without acute inflammatory changes. VASCULAR: There is no abdominal aortic aneurysm. LYMPH NODES: No evidence of pathologic appearing lymph nodes. PELVIS: No pelvic mass is identified. BLADDER: Unremarkable. OSSEOUS STRUCTURES: No acute abnormality seen. Partially calcified L3-L4 posterior disc bulge results in mild central canal narrowing. IMPRESSION: Findings concerning for an acute pancreatitis. Correlate with laboratory data. A duodenitis remains in the differential. No defined peripancreatic fluid collection. The pancreas demonstrates homogeneous enhancement. Short-term interval follow-up study can be obtained as clinically warranted. Submucosal fatty infiltration of the distal stomach and duodenum is identified, similar to the comparison study and may represent a chronic inflammatory process. Hepatic steatosis. Cholecystectomy. SL: [id number] 11/27/2018 [facility] Abdomen RUQ US Patient Name: Jose A PHILIP : 1985; Age: 32 years Male MR: [id number] Study: Abdomen RUQ US 09/09/2017 1:46 PM CDT Clinical Indication: - pain. COMPARISON: None TECHNIQUE: Grayscale and limited color sonographic evaluation of the right upper quadrant of the abdomen and gallbladder region was performed with standard technique. FINDINGS: LIVER: The visualized liver shows normal contour, size, and morphology. There is increased parenchymal echotexture. BILE DUCTS: The intrahepatic and extrahepatic bile ducts are not dilated. The common bile duct measures 2.7 mm. The distal common bile duct is not well seen. GALLBLADDER: Numerous gallstones without pericholecystic fluid. The gallbladder wall measures up to 3.2 mm. PANCREAS: Obscured by bowel gas. KIDNEY: The right kidney measures 11.9 x 7.3 x 6.8 cm. The renal cortical thickness measures 2.9 cm. There is normal renal contour and morphology, with normal parenchymal echotexture. There is no hydronephrosis. ASCITES: There is no right upper quadrant abdominal ascites. IMPRESSION: 1. Hepatocellular disease most likely d ue to fatty infiltration. 2. Cholelithiasis with gallbladder wall thickening. In the right clinical setting, cholecystitis could be considered. SL: [id number] 09/09/2017 [facility] ED Abdomen/Pelvis IV contrast only CT STUDY: ED Abdomen/Pelvis IV contrast only CT 09/09/2017 12:12 PM CDT Ordering Physician: Agatha Lopez MD Patient Name: DEANDRE PHILIP MR: [id number] : 1985; Age: 32 years y/o Male Clinical Indication: - acute abdominal pain Comparison: None TECHNIQUE: Multiple contiguous postcontrast transaxial CT images were obtained from the diaphragm through the symphysis pubis.Sagittal and coronal reformatted images were prepared. IV CONTRAST: 100 mL Omnipaque 300 DLP: 1337 mGy-cm CT ABDOMEN AND PELVIS WITH CONTRAST: VISUALIZED LUNG BASES: No significant abnormality. BOWEL: Normal nonobstructed bowel gas pattern. APPENDIX: Normal appendix without inflammatory change. STOMACH: Normal for degree of distention. PERITONEUM AND MESENTERY: Free Air: No evidence of pneumoperitoneum. Free Fluid: No evidence of significant free fluid, loculated fluid, peripherally enhancing abscess, or hemorrhage. Mesenteric and peritoneal fat: Thickening of the right anterior pararenal fascia. Mild fat stranding adjacent to the distal 2nd portion of the duodenum. Mild nonspecific proximal duodenal wall thickening. LYMPH NODES: No lymphadenopathy or mass. VASCULAR: Abdominal Aorta: Normal caliber abdominal aorta without aneurysm or dissection. IVC: Normal caliber nonenhanced. ABDOMINAL ORGANS: Liver: Normal size and morphology without discrete lesion. Gallbladder: Multiple hypodense gallstones. Biliary Tree: Normal without dilatation. Kidneys: Normal size and morphology without discrete lesion or hydronephrosis. Adrenal Glands: Normal size and morphology without discrete lesion. Pancreas: Normal size and morphology without discrete lesion. Spleen: Normal size and morphology without discrete lesion. PELVIC ORGANS: Urinary bladder: Normal nonenhanced appropriate for degree of distention. Reproductive organs: No organomegaly or mass lesions. SOFT TISSUES: No suspicious soft tissue lesion or abnormality. OSSEOUS STRUCTURES: No fracture, dislocation, or suspicious focal osseous lesion. Large anterior osteophytes at L3-L4. IMPRESSION: 1. Mild nonspecific inflammatory change s surrounding the proximal duodenum. Correlate with clinical exam for duodenitis and laboratory values for pancreatitis. 2. Cholelithiasis without CT evidence o f cholecystitis. SL: [id number] 09/09/2017 [facility] Consultation Notes No Data Provided for This Section Discharge Summaries No Data Provided for This Section History and Physicals No Data Provided for This Section Vital Signs Vital Sign Value Date Comments Source Temperature Oral (F) 97.7 F 10/06/2019 [facility] Heart Rate 83 10/06/2019 [facility] Systolic (mm Hg) 124 10/06/2019 [facility] Diastolic (mm Hg) 86 10/06/2019 [facility] Systolic (mm Hg) 137 10/06/2019 [facility] Diastolic (mm Hg) 95 10/06/2019 [facility] Heart Rate 86 10/06/2019 [facility] Temperature Oral (F) 98.1 F 10/06/2019 [facility] Heart Rate 90 10/06/2019 [facility] Systolic (mm Hg) 111 10/06/2019 [facility] Diastolic (mm Hg) 72 10/06/2019 [facility] Temperature Oral (F) 97.9 F 10/05/2019 [facility] Respitory Rate 18 10/05/2019 [facility] Respitory Rate 26 10/05/2019 [facility] Respitory Rate 27 10/05/2019 [facility] Height 162.56 cm 10/03/2019 [facility] Weight 100.483 10/03/2019 [facility] BMI Calculated 38.02 10/03/2019 [facility] Height 162.56 cm 10/03/2019 [facility] BMI Calculated 39.56 10/03/2019 [facility] Weight 104.545 10/03/2019 [facility] Temperature Oral (F) 98.1 F 02/23/2019 [facility] Heart Rate 71 02/23/2019 [facility] Respitory Rate 18 02/23/2019 [facility] Systolic (mm Hg) 126 02/23/2019 [facility] Diastolic (mm Hg) 88 02/23/2019 [facility] Temperature Oral (F) 98 F 02/23/2019 [facility] Heart Rate 71 02/23/2019 [facility] Respitory Rate 18 02/23/2019 [facility] Systolic (mm Hg) 126 02/23/2019 [facility] Diastolic (mm Hg) 80 02/23/2019 [facility] Temperature Oral (F) 97.5 F 02/23/2019 [facility] Heart Rate 73 02/23/2019 [facility] Respitory Rate 18 02/23/2019 [facility] Systolic (mm Hg) 114 02/23/2019 [facility] Diastolic (mm Hg) 75 02/23/2019 [facility] Height 162.56 cm 02/17/2019 [facility] Weight 110 02/17/2019 [facility] BMI Calculated 41.63 02/17/2019 [facility] Height 162.56 cm 02/17/2019 [facility] BMI Calculated 41.28 02/17/2019 [facility] Weight 109.091 02/17/2019 [facility] Heart Rate 96 12/02/2018 [facility] Temperature Oral (F) 98.6 F 12/02/2018 [facility] Heart Rate 59 12/02/2018 [facility] Respitory Rate 16 12/02/2018 [facility] Systolic (mm Hg) 137 12/02/2018 [facility] Diastolic (mm Hg) 87 12/02/2018 [facility] Temperature Oral (F) 98.3 F 12/02/2018 [facility] Heart Rate 97 12/02/2018 [facility] Respitory Rate 16 12/02/2018 [facility] Systolic (mm Hg) 128 12/02/2018 [facility] Diastolic (mm Hg) 78 12/02/2018 [facility] Temperature Oral (F) 98.2 F 12/02/2018 [facility] Respitory Rate 16 12/02/2018 [facility] Systolic (mm Hg) 128 12/02/2018 [facility] Diastolic (mm Hg) 81 12/02/2018 [facility] Height 162.56 cm 11/30/2018 [facility] BMI Calculated 39.39 11/30/2018 [facility] Weight 104.091 11/30/2018 [facility] Height 162.56 cm 11/30/2018 [facility] Height 162.56 cm 11/29/2018 [facility] BMI Calculated 41.28 11/28/2018 [facility] Weight 109.091 11/28/2018 [facility] Weight 109.091 11/28/2018 [facility] BMI Calculated 41.28 11/28/2018 [facility] Temperature Oral (F) 98.6 F 09/12/2017 [facility] Heart Rate 100 09/12/2017 [facility] Respitory Rate 16 09/12/2017 [facility] Systolic (mm Hg) 129 09/12/2017 [facility] Diastolic (mm Hg) 82 09/12/2017 [facility] Temperature Oral (F) 98.3 F 09/12/2017 [facility] Heart Rate 94 09/12/2017 [facility] Systolic (mm Hg) 138 09/12/2017 [facility] Diastolic (mm Hg) 83 09/12/2017 [facility] Respitory Rate 16 09/12/2017 [facility] Systolic (mm Hg) 107 09/12/2017 [facility] Diastolic (mm Hg) 73 09/12/2017 [facility] Heart Rate 91 09/12/2017 [facility] Temperature Oral (F) 97.9 F 09/12/2017 [facility] Respitory Rate 20 09/12/2017 [facility] Height 162.56 cm 09/10/2017 [facility] BMI Calculated 39.05 09/09/2017 [facility] Height 160.02 cm 09/09/2017 [facility] Weight 100 09/09/2017 [facility] Encounters Location Location Details Encounter Type Encounter Number Reason For Visit Attending Provider ADM Date DC Date Status Source [facility] Inpatient [id number] Durga Steven 09/09/2017 09/12/2017 [facility] Outpatient [id number] ONEL LOPEZ 09/11/[address] [facility] Outpatient [id number] Onel Lopez 09/11/2017 09/12/2017 Medical Group [facility] Inpatient [id number] Edna Mckinney 11/28/2018 12/02/2018 [facility] Inpatient [id number] Cindy Verde 02/17/2019 02/23/2019 [facility] Inpatient [id number] Deloris Boothe 10/03/2019 10/06/2019 [facility] Procedures Procedure Code Date Perfomer Comments Source Cholecystectomy [id number] [facility] st Assessment and Plan Assessment and Plan Date Source Extracted from:Title: GI Progress Note Author: Yasmin Guzman Date: 10/06/19 Progress Note - Daily [facility] Completed: Sep, 17:47 by Yasmin Guzman RM: 306 - 1D, SE C3BS DEANDRE PHILIP 34y (: 1985) M Attending: Deloris Boothe MD Service: Internal Medicine Reason for Admission: ACUTE PANCREATITIS Working DRG: Code status: Full Resuscitation Current diet: Isolation: No Isolation/Standard Precautions Allergies: No Known Allergies, No Known Medication Allergies SUBJECTIVE patient reports doing well pain is controlled tolerating diet OBJECTIVE 24hr Labs 10/05 1157 POC Performing Locatio See Note Glucose POC 121 H 10/05 0756 POC Performing Locatio See Note Glucose POC 133 H 10/05 0427 Amylase Lvl 38 Sodium Lvl 138 Potassium Lvl 4.3 Chloride Lvl 103 CO2 30 AGAP 9.3 L Glucose Lvl 136 H Creatinine Lvl 0.74 BUN 6 L B/C Ratio 8 Total Protein 7.3 Albumin Lvl 3.6 Globulin 3.7 A/G Ratio 1.0 Calcium Lvl 9.7 ALT 52 AST 40 H Alk Phos 76 Bili Total 0.7 eGFR 119 Lipase Lvl 159 Magnesium Lvl 2.2 WBC 5.0 RBC 4.85 Hgb 13.9 L Hct 41.2 L MCV 84.9 MCH 28.7 MCHC 33.8 RDW 13.8 Platelet 205 MPV 7.8 Segs 52.2 Monocytes 9.1 Lymphocytes 29.0 Eosinophils 9.0 H Basophils 0.7 Neutrophils # 2.6 Lymphocytes # 1.4 Monocytes # 0.5 Eosinophils # 0.4 10/05 0302 POC Performing Locatio See Note Glucose POC 136 H 10/04 2057 POC Performing Locatio See Note Glucose POC 111 H F[place] still necessary (Yes/No): Line still necessary (Yes/No): Vitals Tmp(F) Pulse BP RR SpO2 FIO2 10/05 07:23 97.7 83 124/86 - - 100 --- 10/05 04:13 ---- 86 137/95 - - --- --- 10/05 00:09 98.1 90 111/72 - - 95 --- 10/04 21:14 ---- 85 134/89 - - --- --- 10/04 15:45 97.9 99 125/79 1 8 98 --- 24 Hr Tmax: 98.1F (36.72c) at 10/05 00:0 9 Vital Signs are the last 5 in the past 48 hours. Date Wt(kg) Wt(lb) Ht(cm) Ht(in) Method 10/04 100.20 220.44 Measur ed 10/02 (initial) 104.55 230.00 Estimated 10/02 162.56 64.00 Stated I&O Record In Out Bal 10/05 24hr Tot 102 0 102 10/04 24hr Tot 1747 0 1747 Medications (0) Active Scheduled Meds: None Unscheduled Meds: None PRN Meds: None One Time Meds: None Continuous Infusions: None EXAM General: awake, alert, no acute distress, obese HEENT: normocephalic, atraumatic, sclera anicteric Neck: Supple Respiratory: Clear to auscultation bilaterally, no retractions Cardiac: S1, S2 distinct, no murmur Abdomen: soft, mild epigastric TTP, nondistended, +BS Ext: no clubbing, no cyanosis Skin: warm, pink, dry Neuro: alert, oriented IMPRESSION: 1. Hypertriglyceridemia induced pancreat itis: TG level 536 2. proctocolitis on imaging, likely reac tive 3. h/o alcohol use PLAN: 1. IVF 2. advance to soft low fat carb controll ed diet 3. cont insulin gtt till goal TG < 500, endocrinology recs appreciated. 4. analgesia prn per primary, antiemetic s prn 5. consider colonoscopy as outpatient 6. cont Cipro and Flagyl for proctocolit is 7. ETOH cessation advised 8. fenofibrate 145 mg PO daily 9. if tolerating diet and pain controlle d, patient may be discharged with outpatient GI follow-up with Dr. Galo in 2 weeks upon discharge Extracted from:Title: ICU Consult Note Author: Sam Tariq MD Date: 10/03/19 [facility] Consult Note Sam Tariq MD Reason for consult: Hypertriglyceridemia induced pancreatitis HPI: Patient is a 34-year-old male with past medical significant for hypertension, diabetes, hypertriglyceridemia, hyperlipidemia, history of pancreatitis, history of cholecystectomy in 2017, and obesity who had presented to the hospital with report of abdominal pain and nausea/vomiting on evaluation found to have evidence of pancreatitis on imaging as well as elevated lipase. Noted to have significantly elevated triglycerides. 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 Discussed with endocrinology. Will transfer patient to ICU for further management with insulin infusion for triglyceride reduction. Patient has had multiple episodes of pancreatitis in the past. Reports medication compliance. Review of systems: 14 point review of system negative excep t as per HPI Allergies Allergies (2) Active Reaction No Known Allergies None documented No Known Medication Allergies None documented Procedure History Cholecystectomy Past Medical History Diabetes type 2, controlled Hypertension Family History Father: Type 2 diabetes mellitus Grandparent: Type 2 diabetes mellitus Social history Alcohol Details: Past, Type Beer, Liquor. Frequency: 1-2 times per month. Tobacco Details: Use: Current some day smoker. Type: Cigarettes. Previous treatment: None. Ready to change: Yes. Household tobacco concerns: No. Tobacco smoke exposure: None. Did the Patient Smoke Cigarettes Anytime During the Last 365 Days? No. Cessation Counseling Provided? No.; Comment(s): Stopped a week ago Substance Abuse Details: Use: None. Home Meds No qualifying data available Scheduled Meds (7): 10/03/19 amLODIPine 5 mg PO Daily 10/03/19 atorvastatin 40 mg PO Bedtime 10/03/19 ciprofloxacin 400 mg IVPB ABXQ1 2H 200 ml/hr 10/03/19 enoxaparin 40 mg SUB-Q [id number] 10/03/19 fenofibrate (fenofibrate 145 mg oral tablet) 145 mg PO Daily 10/03/19 metroNIDAZOLE (Flagyl) 500 mg I VPB [id number] 200 ml/hr 10/04/19 pantoprazole (Protonix) 40 mg P O Daily Continuous Infusions (6): 10/03/19 Dextrose 10% in Water IV 1,000 mL (D10W 1,000 mL) 1,000 mL Titrate 10/03/19 Dextrose 5% in Lactated Ringers IV 1,000 mL (D5LR 1,000 mL) 1,000 mL Titrate 10/03/19 Lactated Ringers Injection IV 1 ,000 mL (Lactated Ringers (titrate) IV 1,000 mL) 1,000 mL Titrate 10/03/19 Lactated Ringers Injection IV 3 000 mL (Lactated Ringers IV 3000 mL) 3,000 mL 250 ml/hr 10/03/19 Sodium Chloride 0.9% IV 1000 mL (normal saline 0.9% IV 1000 mL) 1,000 mL 200 ml/hr 10/03/19 Sodium Chloride 0.9% IV 99 mL + Insulin regular 100 unit (Sodium Chloride 0.9% (titrate) 99 mL + Insulin regular 100 unit) 99 mL 0.1 unit/kg/hr Labs (Last four charted values) WBC 9.4 (OCT 02) Hgb 16.3 (OCT 02) Hct 44.5 (OCT 02) Plt H 526 (OCT 02) Na L 134 (OCT 02) K 4.7 (OCT 02) CO2 24 (OCT 02) Cl 100 (OCT 02) Cr 0.85 (OCT 02) BUN 15 (OCT 02) Glucose Random H 287 (OCT 02) Ca 8.5 (OCT 02) All imaging reviewed. Objective: I&O Record In Out Bal 10/01 24hr Tot 1594 0 1594 09/30 24hr Tot 0 0 0 Lines, Tubes, and Drains: 10/03/2019 04:29 Peripheral Lines: Antec ubital Right 20 gauge Over the needle catheter 10/03/2019 07:09 SpO2 percent 95 Vital Signs (last 24 hrs) Last Charted Temp Oral 98.5 DegF (OCT 02 07:09) Heart Rate Peripheral H 101bpm (OCT 02 07:09) Resp Rate 18 BRMIN (OCT 02 03:07) SBP 136 mmHg (OCT 02 07:09) Weight 100.48 kg (OCT 02 04:22) Height 162.56 cm (OCT 02 04:22) BMI 38.02 (OCT 02 04:22) Exam: General: not in any distress, HEENT: no pallor, anicteric sclera Cardiovascular: regular, no murmur Respiratory: CTA Abdomen: soft, non-tender, +BS Extremities: no edema, no cyanosis Neurologic: Awake, Nonfocal Skin: no breakdown Problems: Hypertriglyceridemia induced pancreatitis Diabetes Abdominal pain Nausea vomiting Plan: Hypertriglyceridemia induced pancreatitis MPP ordered, discussed with pharmacy, continue insulin infusion untilTriglycerides are less than 500, endocrinology is following, will initiate fenofibrate thereafter, IV fluids as per protocol Diabetes, hemoglobin A1c 9.4, will position to subcutaneous insulin following reduction in triglycerides Abdominal pain, secondary to pancreatitis, improved, PRN analgesia Prophylaxis: DVT: Heparin GI: Not indicated Nutrition: N.p.o. Code Status: Full code Disposition: ICU I spent greater than 30 minutes in reviewing the clinical case, examining the patient, and discussing with the patient/patient's family, and with other consultants, the clinical course, treatment plan, and prognosis. Sam Tariq MD Pulmonary and Critical Care Extracted from:Title: History and Physical Author: Shai Wilson MD Date: 10/03/19 Patient is a 34-year-old male with high blood pressure, type 2 diabetes,hyperlipidemia who is admitted to inpatient status secondaryto acute pancreatitiswithCT scan imaging showingevidence of proctocolitis. We will manage on telemetry under continuous cardiac monitoring. Keep the patient n.p.o. except for medications and ice chips.Control pain with morphine sulfate4 mg IV every2 hours PRN. Control nausea with Zofran 4 mg IV every 6 hours PRN. Begin ciprofloxacin 400 mg IV every 12 hours.Begin Ucolip106 mg IV every 8 hours. Order CBC complete metabolic panel procalcitonin lactic acid. Bolus 1 L normal saline. Continue with lactated Ringer's IV solutionat 125 cc an hour.Begin Accu-Cheks before meals and at bedtime cover with high-dose insulin sliding. Control blood pressure with hydralazine 20 mg IVevery 4 hours as needed systolic greater than 160. Initiate DVT prophylaxis GI prophylaxis. Additional recommendations will depend on results of the diagnostics. Acute pancreatitis(K85) Ordered: Admit/Condition, 10/03/19 3:12:00 CDT, Status: Inpatient, Acute, Expected LOS: 3 or Greater Midnights, Shai Wilson MD, Emily PEREZ Review/Approve Yes, Isolation: No Isolation/Standard Precautions, Acute pancreatitis | Uncontrolled diabetes mellitus | Uncontro... Admit/Condition, 10/03/19 2:33:00 CDT, Status: Inpatient, Acute, Expected LOS: 2 Midnights, Chandrakant Liu MD, Emily PEREZ Review/Approve Yes, Isolation: No Isolation/Standard Precautions, Acute pancreatitis Uncontrolled diabetes mellitus(E11.65) Ordered: Admit/Condition, 10/03/19 3:12:00 CDT, Status: Inpatient, Acute, Expected LOS: 3 or Greater Midnights, Shai Wilson MD, Emily PEREZ Review/Approve Yes, Isolation: No Isolation/Standard Precautions, Acute pancreatitis | Uncontrolled diabetes mellitus | Uncontro... Uncontrolled hypertension(I10) Ordered: Admit/Condition, 10/03/19 3:12:00 CDT, Status: Inpatient, Acute, Expected LOS: 3 or Greater Midnights, Shai Wilson MD, Emily PEREZ Review/Approve Yes, Isolation: No Isolation/Standard Precautions, Acute pancreatitis | Uncontrolled diabetes mellitus | Uncontro... 10/06/2019 LAURA Rocha Extracted from:Title: Progress Note Author: Edna Mckinney MD Date: 02/22/19 1.Acute pancreatitis(K85.90), Acute pancreatitis(K85.90) 2.Type II diabetes mellitus poorly controlled(E11.65) 3.Alcohol abuse(F10.10) 4.Hypertriglyceridemia(E78.1) 5.Nonadherence to medication(Z91.14) 6.Morbid obesity(E66.01) 7.BMI 40.0-44.9, adult(Z68.41) Plan Today we will see if patient is tolerating his diet, we will not advance beyond full liquid diet,I have discussed with the patient about low-fat low-cholesterol dietand slowly advancing to thatonce pain gets better, patient wanted to stay 1 more night to see how he doesand heis considering discharge tomorrow. 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 2.Type II diabetes mellitus poorly controlled(E11.65) 3.Alcohol abuse(F10.10) 4.Hypertriglyceridemia(E78.1) 5.Nonadherence to medication(Z91.14) 6.Morbid obesity(E66.01) 7.BMI 40.0-44.9, adult(Z68.41) - liquid diet, advance as tolerated - IVFs - pain control with morphine IV prn - protonix - TG < 1000, insulin IV not indicated - sliding scale insulin, goal 140-180 - counselled against alcohol use - discussed importance of medications ad herence SCDs Inpatient Full code 02/23/2019 [facility] Extracted from:Title: Endocrinology Prog ress Note Author: Rupali Bishop DO Date: 12/02/18 Impression and Plan Acute Pancreatitis 2/2 Hypertriglyceridemia Diabetes Type 2 Pseudohyponatremia 2/2 hypertriglyceridemia Transaminitis Obesity Alcohol consumption 6 drinks/week -Possible precipitating cause for this e pisode is discontinuation of atorvastatin, as patient wasn't having episodes on the medication. AST is mildly elevated, and that would likely be more due to fatty liver disease either NAFLD or alcohol induced, and typically statin therapy is safe to give when LFTs <3x ULN. Alcohol is another potential trigger. TFTs normal. Patient isn't on any culprit medications. A1c 8.5%. Tentative discharge recommendations: Metformin 500mg BID Plan: - LSM - weight loss; aerobic exercise; avoidance of concentrated sugars, alcohol -Fenofibrate 145mg QD -Atorvastatin 40mg QD -Start LDSSI inpatient -Goal to reduce TG <500. -Trend TG -Advised stopping alcohol altogether -Weight loss / bariatric surgery candid ate as outpatient Rupali Bishop Endocrin[facility] [phone] Extracted from:Title: Endocrinology Consultation Note Author: Rupali Bishop DO Date: 11/28/18 Impression and Plan Acute Pancreatitis 2/2 Hypertriglyceridemia Diabetes Type 2 Pseudohyponatremia 2/2 hypertriglyceridemia Transaminitis Obesity Alcohol consumption 6 drinks/week -No hypocalcemia, AGAP 13, WBC 10.2 -Possible precipitating cause for this e pisode is discontinuation of atorvastatin, as patient wasn't having episodes on the medication. AST is mildly elevated, and that would likely be more due to fatty liver disease either NAFLD or alcohol induced, and typically statin therapy is safe to give when LFTs <3x ULN. Alcohol is another potential trigger. Rarely, hypothyroidism may cause this presentation as well. Patient isn't on any culprit medications. Plan: -ICU admission, insulin drip protocol for hypertriglyceridemia, goal to reduce TG <500. -Trend TG level at least QD or BID -Check A1c, ketones -TFTs -Start fenofibrate 145mg PO QD when razia ent able to tolerate PO -Advised stopping alcohol altogether -Will consider resuming statin therapy o n discharge -Weight loss / bariatric surgery candid ate as outpatient Rupali Bishop [facility] [phone] 12/02/2018 Aj Extracted from:Title: Clinical Document Author: Durga Steven MD Date: 09/12/17 Date of admission: 09/09/2017 Date of discharge: 09/12/2017 Discharge diagnoses 1. Diabetic ketoacidosis and new diagno sis of diabetes mellitus 2. Acute cholecystitis s/p lap [facility] course Patient is a 32-year-old man newly diagnosed with diabetes mellitus who came in with abdominal pain and nausea. He is found to have acidosis with bicarb being 18 and elevated glucose. He is admitted to the ICU for treatment of diabetic ketoacidosis. He is found to have abdominal pain that is due to acute cholecystitis. Patient undergoes laparoscopic cholecystectomy this admission. Post operatively his course has been unremarkable. He has received diabetic education here in the hospital. As he is uninsured, patient will be given prescription for NPH and regular insulin. Patient seen and examined on the day of discharge. Acidosis has resolved. Patient remains clinically stable and vitals at the time of discharge are temperature 98.3, blood pressure 138/83, heart rate 94, respiratory rate 16, 97% on room air. Discharge condition fair Discharge to home Activity as tolerated Follow-up with her primary care physician and general surgery Diabetic diet Extracted from:Title: Clinical Document Author: Onel Lopez MD Date: 09/12/17 Surgery Progress Note Attending: Durga Steven MD Service: Internal Medicine Code status: Full Code [Ordered] Reason for Admission: DKA, CHOLELITHIASIS Working DRG: Isolation: No Isolation/Standard Precautions Consulting Physicians: Sam Tariq MD Office: Service: Pulmonary Onel Lopez MD Office: Service: General Surgery Josy Pinedo MD Office: Service: Pulmonary, Medicine SUBJECTIVE: Doing well after cholecystectomy. Minimal pain described as dull aching soreness to the umbilicus. OBJECTIVE and EXAM: General: AAOx3 HEENT: AT, NC, PERRLA, no scleral icterus CARDIAC: rrr PULM: CTA B, equal excursion B ABD: soft ND, tender epigastrium right upper quadrant, no R/G, no organomegaly EXT: no E/C/C, 2+ pulses in all 4 ext NEURO: grossly intact, CN 2-12 intact ASSESSMENT: 32-year-old gentleman with: 1. Gallstones. 2. Vague abdominal pain. 3. Newly diagnosed diabetic. 4. Diabetic ketoacidosis. 5. Obesity BMI of 39 point PLAN: 1. Diet as tolerated. 2. Medical management for his diabetes. 3. Okay for discharge planning from christopher aramis standpoint 4. Follow-up with me 1 week for postop check. Vitals and Temp: Vitals Tmp(F) Pulse BP RR SpO2 FIO2 09/12 11:06 98.3 94 138/83 1 6 97 --- 09/12 04:00 97.9 91 107/73 - - 98 --- 09/12 00:00 98.2 94 117/77 - - 97 --- 09/11 20:39 ---- --- ----- 2 0 98 21% 09/11 20:00 98 109 113/68 -- 97 --- 24 Hr Tmax: 98.3F (36.83c) at 09/12 11:0 6 Vital Signs are the last 5 in the past 48 hours. Labs (Last four charted values) WBC 5.2 (SEP 12) 4.7 (SEP 11) 5.2 (SEP 10) 8.0 (SEP 09) Hgb L 12.9 (SEP 12) L 13.5 (SEP 11) 14.4 (SEP 11) L 13.5 (SEP 10) Hct L 37.8 (SEP 12) L 39.7 (SEP 11) 42.3 (SEP 11) L 39.2 (SEP 10) Plt 193 (SEP 12) 199 (SEP 11) 217 (SEP 10) 314 (SEP 09) Na 142 (SEP 12) 141 (SEP 11) 144 (SEP 10) 144 (SEP 10) K C 3.0 (SEP 12) 3.5 (SEP 11) L 3.3 (SEP 10) 3.6 (SEP 10) CO2 30 (SEP 12) 28 (SEP 11) 25 (SEP 10) L 22 (SEP 10) Cl 105 (SEP 12) 105 (SEP 11) H 110 (SEP 10) 109 (SEP 10) Cr 0.53 (SEP 12) 0.78 (SEP 11) 0.52 (SEP 10) L 0.48 (SEP 10) BUN L 4 (SEP 12) L 6 (SEP 11) L 3 (SEP 10) L 5 (SEP 10) Glucose Random H 201 (SEP 12) H 204 (SEP 11) H 151 (SEP 10) H 223 (SEP 10) Mg 2.2 (SEP 11) H 2.5 (SEP 10) 1.8 (SEP 09) Phos 4.0 (SEP 11) 2.7 (SEP 10) L 2.3 (SEP 09) Ca L 8.2 (SEP 12) 9.1 (SEP 11) 8.6 (SEP 10) L 8.3 (SEP 10) Troponin <0.02 (SEP 10) <0.02 (SEP 10) <0.02 (SEP 09) Total CK 65 (SEP 10) 63 (SEP 10) Alk Phos: 109 unit/L (09/09/17 12:22:00) A/G Ratio: 1.8 High (09/09/17 12:22:00) ALT: 55 unit/L (09/09/17 12:22:00) Albumin Lvl: 4.6 g/dL (09/09/17 12:22:00) Bili Total: 0.4 mg/dL (09/09/17 12:22:00) Total Protein: 7.2 g/dL (09/09/17 12:22:00) Globulin: 2.6 g/dL Low (09/09/17 12:22:00) Lipase Lvl: 434 unit/L High (09/09/17 12:22:00) Scheduled Meds (8): 09/11/17 docusate (docusate sodium 100 m g oral capsule) 100 mg PO BID 09/10/17 enoxaparin 40 mg SUB-Q [id number] 09/10/17 insulin isophane (insulin isoph ane-NPH) 20 unit SUB-Q Q12H 09/10/17 insulin lispro 10 unit SUB-Q TI D-Before Meals 09/10/17 lisinopril 5 mg PO Daily 09/09/17 mupirocin topical (mupirocin to pical 2% ointment) 1 appl NASAL Q12H 09/12/17 potassium chloride + Sodium Chl oride 0.9% IV 95 mL 10 mEq IVPB Q1H 100 ml/hr 09/09/17 sodium chloride (Saline Flush 0 .9%) 10 ml IVP Q12H Extracted from:Title: Clinical Document Author: Onel Lopez MD Date: 09/11/17 DATE OF PROCEDURE: 09/11/2017. PREOPERATIVE DIAGNOSIS: 1. Gallstones. 2. Vague abdominal pain. 3. Newly diagnosed diabetic. 4. Diabetic ketoacidosis. 5. Obesity BMI of 39. POSTOPERATIVE DIAGNOSIS: 1. Gallstones. 2. Vague abdominal pain. 3. Newly diagnosed diabetic. 4. Diabetic ketoacidosis. 5. Obesity BMI of 39. TECHNICAL PROCEDURE PERFORMED: Laparoscopic cholecystectomy. SURGEON: Onel Lopez M.D. ANESTHESIA: General endotracheal. SURGICAL WOUND CLASSIFICATION: Clean contaminate. OPERATIVE TIME: 35 minutes. ESTIMATED BLOOD LOSS: Minimal. FLUID REPLACEMENT: Per anesthesia. SPECIMENS SENT FOR PATHOLOGY: Gallbladder. COMPLICATIONS: None. FINDINGS: 1. Gallbladder with stones. 2. Well-visualized critical view. CONDITION: To recovery, stable. POSTOPERATIVE PLAN: To the floor INDICATIONS: A 32-year-old gentleman that presented to [facility] with abdominal pain. At this time, the history and physical as well as laboratory studies was consistent with diagnosis of acute cholecystitis symptomatic gallstones, therefore, the option of laparoscopic versus open cholecystectomy was offered to the patient. Risks and benefits of the procedure were explained and the patient voiced understanding and consented to procedure. OPERATIVE NARRATIVE: Patient was taken the operating room, placed on the operating table, intubated by anesthesia. The abdomen was prepped and draped in the usual sterile fashion. A timeout was called and the correct patient, as well as procedure was verified. The patient had SCDs on for thromboembolic prophylaxis and received antibiotics within 1 hour of the incision. Umbilical region was identified, 0.5% Marcaine was infused followed 1-cm incision followed by dissection of the fascia. The fascia was grasped with a Dulce clamp and a Veress was placed, confirmed with a positive saline drop test. Pneumoperitoneum was achieved with CO2 gas up to 15 mmHg. A 1-cm trocar was placed in the umbilical incision. The patient was placed in reverse Trendelenburg position airplaned to the left; 0.5 cm trocars were introduced in the epigastrium, right upper quadrant right periumbilical regions under direct visualization. The gallbladder was identified. It was grasped at the fundus and retracted to the head, infundibulum was identified, grasped and retracted towards the legs, exposing the triangle of Calot. The cystic duct was identified, it was dissected out from all surrounding structures, clipped proximally 3 times, distally once, transected in between. Of note, a well visualized critical view was identified; therefore we bypassed cholangiogram. The dissection continued to identify the cystic artery, it was dissected out from all surrounding structures, clipped proximally twice, distally once, and transected in between. The gallbladder was then elevated off the liver bed using electrocautery. It was placed in the Endopouch bag and removed from the abdomen through the umbilical port. The liver bed was inspected, all residual bleeding was identified and controlled. The abdomen was irrigated with copious amounts water until clear return was achieved. The patient was placed flat and all residual irrigation was suctioned out. The pneumoperitoneum was deco mpressed and the fascia at the umbilical port was closed using 0 Vicryl in a [id number] manner, and the skin was closed using 4-0 Monocryl in running subcuticular manner. The skin in the 5-mm ports were closed using 4-0 Monocryl in simple U-stitch manner. The patient was extubated in the operating room and transferred to recovery in stable condition. All instrument and laparotomy counts were correct. Extracted from:Title: ICU History and Physical Author: Sam Tariq MD Date: 09/09/17 Pulmonary and Critical Care Consult Note Sam Tariq MD Reason for consult: Diabetic ketoacidosis HPI: Patient is a 32-year-old obese male who comes to the hospital with abdominal pain for multiple weeks with increase in nausea and vomiting over the last couple of days. He has noticed polydipsia and polyuria in the context of increased weight loss. The patient has no history of diabetes he reports however hemoglobin A1c on today's labs is greater than 10. The patient is found to have diabetic ketoacidosis in the emergency room and was placed on a insulin drip. Further evaluation of his abdominal pain revealed an elevated lipase which is mild in intensity, some fat stranding on the CT abdomen and cholelithiasis with gall bladder wall thickening. Surgery was consulted Review of systems: Review of Systems HEENT: No changes in vision, no dysphagia no odynophagia Respiratory: Mild shortness of breath, no cough or sputum production Cardiovascular: Intermittent chest pain not present at this time, no palpitations Gastrointestinal: Abdominal pain, nausea and vomiting but no diarrhea or constipation Genitourinary: Polyuria but no dysuria or hematuria Integumentary: No skin lesions or lashes Extremities: No edema Neurologic: No numbness or tingling or changes in sensation Grayson/Lymph: No easy bruising or easy bleeding Endocrine: Positive for polyuria and polydipsia, no heat or cold intolerance Psychiatric: No anxiety or mood swings Allergies Allergies (1) Active Reaction NKDA None documented Procedure History No qualifying data available Past Medical History No qualifying data available Family History No qualifying data available Social history Tobacco Details: Use: Former smoker. Type: Cigarettes. Tobacco smoke exposure: None. Did the Patient Smoke Cigarettes Anytime During the Last 365 Days? No. Cessation Counseling Provided? No. Home Meds No qualifying data available Scheduled Meds (2): 09/09/17 famotidine 20 mg IVP Q12H 09/09/17 sodium chloride (Saline Flush 0 .9%) 10 ml IVP Q12H Labs (Last four charted values) WBC 8.0 (SEP 09) Hgb 17.1 (SEP 09) Hct 46.6 (SEP 09) Plt 314 (SEP 09) Na 144 (SEP 09) K 4.5 (SEP 09) CO2 L 18 (SEP 09) Cl 105 (SEP 09) Cr 0.75 (SEP 09) BUN 9 (SEP 09) Glucose Random H 348 (SEP 09) Ca 9.0 (SEP 09) Troponin <0.02 (SEP 09) Objective: I&O Record In Out Bal 09/09 24hr Tot 1000 0 1000 09/08 24hr Tot 0 0 0 Lines, Tubes, and Drains: 09/09/2017 11:34 Peripheral Lines: Antec ubital Right 20 gauge Over the needle catheter 09/09/2017 13:03 SpO2 percent 98 Vital Signs (last 24 hrs) Last Charted Temp Oral 97.7 DegF (SEP 09:47) Heart Rate Apical H 108bpm (SEP 09 13:03) Resp Rate H 24BRMIN (SEP 09 13:03) SBP 134 mmHg (SEP 09 13:03) DBP 84 mmHg (SEP 09 13:) SpO2 98 % (SEP 09:03) Weight 100 kg (SEP 09:47) Height 160.02 cm (SEP 09:47) BMI 39.05 (SEP 09:47) Exam: General: not in any distress, obese HEENT: no pallor, anicteric sclera Cardiovascular: regular, no murmur Respiratory: CTA Abdomen: soft, non-tender, +BS Extremities: no edema, no cyanosis Neurologic: Awake, Nonfocal Skin: no breakdown Problems: 1. Diabetic ketoacidosis 2. Hypokalemia 3. Cholelithiasis with possible cholecy stitis 4. Lipase elevation 5. Nausea and vomiting 6. Abdominal pain Plan: -Treat DKA with DKA protocol and electro lyte replacement protocol -Half NS with D5 given sodium greater th an 135 on BMP -CT abdomen and right upper quadrant ult rasound with evidence of cholelithiasis as well as gallbladder wall thickening. Surgery consulted -Lipase elevation, on CT some fat strand ing, in context of treatment for DKA no difference in management of mild pancreatitis. Lipase elevation of the setting of DKA or HHS uncharacteristic, will trend and ensure that it is not increasing. -No indication for empiric antibiotics Prophylaxis: DVT: heparin / SCD GI: H2 Winifred Nutrition: N.p.o. Code Status: Full Disposition: ICU I spent 35 min of Critical care time , in reviewing, laboratory and radiographic data,in direct management of patient at bedside as well as coordination. Time spent does not include time spent by any other provider or time spent in doing procedure. Patient required critical care due to the acute impairment of vital organ systems and a high probability of imminent and life threatening deterioration. Sam Tairq MD Pulmonary and Critical Care Extracted from:Title: Clinical Document Author: Onel Lopez MD Date: 09/09/17 SURGICAL CONSULT Attending: Agatha Lopez MD Service: Emergency Medicine Code status: None Specified=FULL CODE Reason for Admission: ABD PAIN Working DRG: Isolation: None Documented Consulting Physicians: Onel Lopez MD Office: Service: General Surgery CHIEF COMPLAINT: Abdominal pain. REASON FOR CONSULTATION: Gallstones. HISTORY OF PRESENT ILLNESS: Thank you for allowing me to participate in the care of this patient. 32-year-old gentleman who denies medical history presents to [facility] with vague complaints of abdominal pain associated with nausea vomiting. Pain described as dull, aching, cramping in nature, located in the right abdomen, lower abdomen, ongoing off and on for the last month, however more recently was associated nausea vomiting and finally came in for further evaluation. Workup i n the emergency room actually revealed that the patient was profoundly diabetic and is actually early stages of DKA. Further workup for the abdominal pain including CT and ultrasound revealed gallstones prompting a surgical evaluation. PAST MEDICAL HISTORY: Recently diagnosed diabetes PAST SURGICAL HISTORY: Denies MEDS: Please refer to the medication reconciliation form. Allergies: NKDA SOCIAL HISTORY: Previous smoker, drinks regularly, denies illicit drugs. FAMILY HISTORY: Noncontributory RVIEW OF SYSTEMS: Other than what was mentioned in the HPI, complete review of systems were performed and are negative. Vitals Tmp(F) Pulse BP RR SpO2 FIO2 09/09 13:03 ---- 108 134/84 24 98 --- 09/09 12:04 ---- 112 138/87 20 99 --- 09/09 10:47 97.7 121 140/89 20 98 --- 24 Hr Tmax: 97.7F (36.50c) at 09/09 10:4 7 Vital Signs are the last 5 in the past 48 hours. General Appearance: Well appearing, well developed, well nourished, well hydrated, good color, and in no acute distress Head: Normocephalic atraumatic Eyes: Pupils equal/round/reactive to light, no scleral icterus, extraocular movements intact Ears: Normal external shape, normal position Nose: Nares patent and no discharge Neck: Supple, FROM Chest Wall: No retractions, No deformities Lungs: CTA bilaterally, and good air entry Heart: Regular rate and regular rhythm Abdomen: soft, mild right-sided abdominal pain., non-distended, no HSM, and no mass Musculoskeletal: No obvious deformity. Moves all 4 extremities, stable gait. Extremities: Symmetric, no obvious defect, and no cyanosis/clubbing/edema. 2+ pulses bilaterally. Neurologic: Alert/appropriate. CN II-XII grossly intact. Clear speech, aao x 3. Psych: Mood congruent affect, responds appropriately to questions. Labs (Last four charted values) WBC 8.0 (SEP 09) Hgb 17.1 (SEP 09) Hct 46.6 (SEP 09) Plt 314 (SEP 09) Na 144 (SEP 09) K 4.5 (SEP 09) CO2 L 18 (SEP 09) Cl 105 (SEP 09) Cr 0.75 (SEP 09) BUN 9 (SEP 09) Glucose Random H 348 (SEP 09) Ca 9.0 (SEP 09) Troponin <0.02 (SEP 09) Alk Phos: 109 unit/L (09/09/17 12:22:00) A/G Ratio: 1.8 High (09/09/17 12:22:00) ALT: 55 unit/L (09/09/17 12:22:00) Albumin Lvl: 4.6 g/dL (09/09/17 12:22:00) Bili Total: 0.4 mg/dL (09/09/17 12:22:00) Total Protein: 7.2 g/dL (09/09/17 12:22:00) Globulin: 2.6 g/dL Low (09/09/17 12:22:00) Lipase Lvl: 434 unit/L High (09/09/17 12:22:00) DIAGNOSTIC: Ultrasoundreviewed, gallstones with mild gallbladder wall thickening. CT abdomen pelvisreviewed, gallstones without evidence of cholecystitis. Some inflammation around the duodenum which may represent duodenitis. ASSESSMENT: 32-year-old gentleman with: 1. Gallstones. 2. Vague abdominal pain. 3. Newly diagnosed diabetic. 4. Diabetic ketoacidosis. 5. Obesity BMI of 39 point PLAN: 1. From surgery standpoint, no need for immediate urgent surgical intervention. 2. Medical management for his recent di abetes and DKA per the medical services. 3. Once his diabetes under control, parth salmon reevaluate to see if his pain is persistent. If it is, will consider cholecystectomy. 4. If his pain is improved once his DKA is resolved, abdominal pain may be related to the DKA itself and therefore no need for in-house surgery can consider surgery on elective basis. 5. Impression plan discussed with farida pompa, questions answered and he understands. 09/12/2017 [facility] Plan of Care No Data Provided for This Section Social History Social History Date Source Social History TypeResponse Alcohol Past, Type Beer, Liquor. Frequency: 1-2 times per month. Substance Abuse Use: None. Smoking Status Current some day smoker; Type: Cigarettes; Previous treatment: None; Ready to change: Yes; Concerns about tobacco use in household: No; Exposure to Tobacco Smoke None; Cigarette Smoking Last 365 Days No; Reg Smoking Cessation Counseling No1 entered on: 10/03/19 1Stopped a week ago 10/03/2019 [facility] Social History TypeResponse Alcohol Current, Type Beer, Liquor. Frequency: 1-2 times per month. Smoking Status Former smoker; Type: Cigarettes; Ready to change: Yes; Exposure to Tobacco Smoke None; Cigarette Smoking Last 365 Days No; Reg Smoking Cessation Counseling No1 entered on: 09/09/17 1Stopped a week ago 09/10/2017 [facility] Family History No Data Provided for This Section Advance Directives No Data Provided for This Section Functional Status No Data Provided for This Section
--- OUTSIDE RECORDS SUMMARY | 2019-12-24 15:16 | XMS REPORT | Continuity of Care Document ---
Author Author [facility] t Organization [facility] Address [address] [place] [address] Phone Unavailable Care Team Providers Care Shot Man Name Role Phone NO, PCP PCP Unavailable Jose D Boothe Attphys JEFERSON KELLOGG Attphys Unavailable Reina BECKIWTH Attphys Unavailable Doctor, [facility] Unavailable Leeann PEREZ P Trung Attphys Alexander Mckinney Attphys Jazz Steven Attphys Carolyne Chang Attphys Jose D Boothe Admphys Cindy Verde Admphys Jazz Steven Admphys Payers Payer Name Policy Type Policy Number Effective Date Expiration Date S saqib [place] [employer] [employer] [facility] [employer] [employer] INDIGENTxxxxxx-03/12/[id number] [address], [place] [address] xxxxxxx 2019 00:00:00 2020 23:59:59 [facility] PLANFINANCIAL ASSISTANCE PROGRAMxxx [id number] [place] [address] xxxxxxx 2019 00:00:00 03-12 23:59:59 [facility] Problems Condition Name Condition Details Condition Category Status Onset Date Resolution Date Last Treatment Date Treating Clinician Comments Source ACUTE PANCREATITIS ACUT E PANCREATITIS Active 10/03/2019 [facility] Diagnosis Active 2019-10-03 12:00:00 2019-10-05 06:37:00 Esperanza Phelps ABD PAIN ABD PAIN Active 10/02/2019 [facility] Diagnosis Active 2019-10-02 00:00:00 2019-10-03 00:43:00 Esperanza Phelps ACUTE PANCREATITIS ACUT E PANCREATITIS Active 10/02/2019 [facility] Diagnosis Active 2019-10-02 00:00:00 2019-10-05 12:57:00 Esperanza Phelps CHEST/ABD PAINS CHES T/ABD PAINS Active 02/17/2019 [facility] Diagnosis Active 2019-02-17 00:00:00 2019-02-17 03:51:00 Esperanza Phelps ACUTE PANCREATITIS, ABDOMINAL PAIN,ACUTE ACUTE PANCREATITIS, ABDOMINAL PAIN,ACUTE Active 02/17/2019 [facility] Diagnosis Active 2019-02-17 00:00:00 2019-02-21 07:52:00 Esperanza Phelps ACUTE PANCREATITIS, TYPE II DIABETES ANDREEA ACUTE PANCREATITIS, TYPE II DIABETES ANDREEA Active 11/27/2018 [facility] Diagnosis Active 2018-11-27 00:00:00 2018-12-01 15:42:00 Esperanza Phelps Essential hypertension Essential hypertension Disease Active 2017-11-10 00:00:00 [facility] DKA, CHOLELITHIASIS DKA, CHOLELITHIASIS Active 09/09/2017 [facility] Diagnosis Active 2017-09-09 00:00:00 2017-09-11 09:39:00 Esperanza Phelps Alcohol-induced acute pancreatitis Problem Active [facility] Pancreatitis Problem Active [facility] High anion gap metabolic acidosis Problem Active [facility] Acute pancreatitis Problem Active [facility] Type 2 diabetes mellitus with ketoacidosis without com a Type 2 diabetes mellitus with ketoacidosis without coma 04/01/2018 [facility] Problem 2018-04-01 13:53:23 Esperanza Phelps Obesity, unspecified Obes ity, unspecified 04/01/2018 [facility] Problem 2018-04-01 13:53:23 Sd claudio Phelps Body mass index (BMI) 39.0-39.9, adult Body mass index (BMI) 39.0-39.9, adult 04/01/2018 [facility] Problem 2018-04-01 13:53:23 Esperanza Phelps Hypokalemia Hypo kalemia 04/01/2018 [facility] Problem 2018-04-01 13:53:23 Evelia Phelps Essential (primary) hypertension Essential (primary) hypertension 04/01/2018 [facility] Problem 2018-04-01 13:53:23 Esperanza Phelps Family history of diabetes mellitus Family history of diabetes mellitus 04/01/2018 [facility] Problem 04-01 13:53:23 Esperanza Phelps Personal history of nicotine dependence Personal history of nicotine dependence 04/01/2018 [facility] Problem 2018-04-01 13:53:23 Esperanza Phelps Acute pancreatitis without necrosis or infection, unsp ecified Acute pancreatitis without necrosis or infection, unspecified 12/04/2018 [facility] Problem 2018-12-04 22:04:30 Sd claudio Phelps Hypertensive disorder, systemic arterial (disorder) Hypertensive disorder, systemic arterial (disorder) Resolved Problem 10/08/2019 [facility] Problem Resolved 2019-10-08 21:42:56 Esperanza Phelps Diabetes mellitus type 2 (disorder) Diabetes mellitus type 2 (disorder) Resolved Problem 10/08/2019 [facility] Problem Resolved 2019-10-08 21:42:56 Esperanza Phelps Alcohol abuse (disorder) Alco hol abuse (disorder) Active Problem 10/08/2019 [facility] Problem Active 2019-10-08 21:42:5 6 Esperanza Phelps Body mass index 40+ - severely obese (finding) Body mass index 40+ - severely obese (finding) Active Problem 10/08/2019 [facility] Problem Active 2019-10-08 21:42:56 Esperanza Phelps Hypertriglyceridemia (disorder) Hypertriglyceridemia (disorder) Active Problem 10/08/2019 [facility] Problem Active 2019-10-08 21:42:56 [facility] Morbid obesity (disorder) Morb id obesity (disorder) Active Problem 10/08/2019 [facility] Problem Active 2019-10-08 21:4 2:56 [facility] Noncompliance with medication regimen (finding) Noncompliance with medication regimen (finding) Active Problem 10/08/2019 [facility] Problem Active 2019-10-08 21:42:56 [facility] Type II diabetes mellitus uncontrolled (finding) Type II diabetes mellitus uncontrolled (finding) Active Problem 10/08/2019 [facility] Problem Active 2019-10-08 21:42:56 [facility] OTH DIABETES MELLITUS WITH KETOACIDOSIS OTH DIABETES MELLITUS WITH KETOACIDOSIS Active [facility] Diagnosis Active 2017-09-11 09:39:00 [facility] CALCULUS OF GALLBLADDER W/O CHOLECYSTITI CALCULUS OF GALLBLADDER W/O CHOLECYSTITI Active [facility] Diagnosis Active 2017-09-11 09:39:00 [facility] ACUTE PANCREATITIS WITHOUT NECROSIS OR I ACUTE PANCREATITIS WITHOUT NECROSIS OR I Active [facility] Diagnosis Active 2019-10-05 12:57:00 [facility] ACUTE PANCREATITIS WITHOUT NECROSIS OR INFECTION, UNS ACUTE PANCREATITIS WITHOUT NECROSIS OR INFECTION, UNS Active [facility] Diagnosis Active 2019-10-08 23:11:00 [facility] EPIGASTRIC PAIN EPIG ASTRIC PAIN Active [facility] Active 2019-02-21 07:52:00 [facility] Calculus of gallbladder with acute cholecystitis witho ut obstruction Calculus of gallbladder with acute cholecystitis without obstruction 09/20/2017 04/01/2018 [facility] Problem 2017-09-20 03: 30:20 2018-04-01 13:53:23 2018-04-01 13:53:23 [facility] Allergies, Adverse Reactions, Alerts Allergy Name Allergy Type Status Severity Reaction(s) Onset Date Inacti ve Date Treating Clinician Comments Source No Known Allergies DA Active U 2019-04-11 00:00:00 [facility] No Known Allergies DA Active U 2019-03-01 00:00:00 [facility] No Known Allergies DA Active U 2016-03-13 00:00:00 [facility] Social History Social Habit Start Date Stop Date Quantity Comments Source Sex Assigned [facility] Alcohol intake 2018-07-26 00:00:00 2018-07-26 00:00:00 Current drinker of alcohol (finding) [facility] History SDOH Food Worry 2017-11-10 00:00:00 2017-11-10 00:00:00 1 [facility] History SDOH Food Scarcity 2017-11-10 00:00:00 2017-11-10 00:00:00 1 [facility] Alcohol Comment 2017-11-10 00:00:00 2017-11-10 00:00:00 vodka [facility] Social History 2017-09-10 02:49:00 2017-09-10 02:49:00 [facility] Smoking Status Start Date Stop Date Source Current every day smoker 2018-07-26 00:00:00 [facility] Medications Ordered Medication Name Filled Medication Name Start Date Stop Da te Current Medication? Ordering Clinician Indication Dosage Frequency Signature (SIG) Comments Components Source pantoprazole 40 MG Enteric Coated Tablet [Protonix] 10-06 18:53:00 Yes 40 mg = 1 tab, P O, Daily, # 30 tab, 0 Refill(s), Pharmacy: [facility], 162.56, cm, 10/03/19 4:22:00 CDT, Height, 100.483, kg, 10/03/19 4:22:00 CDT, Weight [facility] amLODIPine 5 mg oral tablet 2019-10-07 18:52:00 Yes 5 mg = 1 tab, PO, Daily, # 30 tab, 0 Refill(s), Pharmacy: [facility], 162.56, cm, 10/03/19 4:22:00 CDT, Height, 100.483, kg, 10/03/19 4:22:00 CDT, Weight [facility] Ciprofloxacin 500 MG Oral Tablet [Cipro] 2019-10-06 18:52:00 Yes 500 mg = 1 tab, PO, Q12H, X 4 day, # 8 tab, 0 Refill(s), Pharmacy: [facility], 162.56, cm, 10/03/19 4:22:00 CDT, Height, 100.483, kg, 10/03/19 4:22:00 CDT, Weight [facility] Metronidazole 500 MG Oral Tablet [Flagyl] 2019-10-06 18:52:00 Yes 500 mg = 1 tab, PO, Q8H, X 4 day, # 12 tab, 0 Refill(s), Pharmacy: [facility], 162.56, cm, 10/03/19 4:22:00 CDT, Height, 100.483, kg, 10/03/19 4:22:00 CDT, Weight [facility] Acetaminophen 300 MG / Codeine Phosphate 30 MG Oral Tablet 2019-10-06 18:52:00 No 1 tab, PO, Q6H, PRN Pain Score 7-10, X 1 day, # 4 tab, 0 Refill(s), Pharmacy: [facility], 162.56, cm, 10/03/19 4:22:00 CDT, Height, 100.483, kg, 10/03/19 4:22:00 CDT, Weight [facility] atorvastatin 40 mg oral tablet 2019-10-06 18:10:00 Yes 40 mg = 1 tab, PO, Bedtime, # 30 tab, 0 Refill(s), Pharmacy: [facility], 162.56, cm, 10/03/19 4:22:00 CDT, Height, 100.483, kg, 10/03/19 4:22:00 CDT, Weight [facility] Fenofibrate 145 MG Oral Tablet 2019-10-06 18:10:00 Yes 145 mg = 1 tab, PO, Daily, # 30 tab, 0 Refill(s), Pharmacy: [place] [id number], 162.56, cm, 10/03/19 4:22:00 CDT, Height, 100.483, kg, 10/03/19 4:22:00 CDT, Weight [facility] Metformin hydrochloride 500 MG Oral Tablet 2019-10-06 18:08:00 Yes 1,000 mg = 2 tab, PO, BID, # 120 tab, 0 Refill(s), Pharmacy: [place] [id number], 162.56, cm, 10/03/19 4:22:00 CDT, Height, 100.483, kg, 10/03/19 4:22:00 CDT, [facility] pioglitazone 15 mg oral tablet 2019-10-06 18:08:00 Yes 15 mg = 1 tab, PO, Daily, # 30 tab, 0 Refill(s), Pharmacy: [facility], 162.56, cm, 10/03/19 4:22:00 CDT, Height, 100.483, kg, 10/03/19 4:22:00 CDT, Weight [facility] Accu-Chek Marianela Blood Glucose Meter 2019-10-06 18:08:00 Yes , # 1 ea, Insulin dependent, Does not use insulin pump, Last DM eval date 10/06/19, 0 Refill(s), Pharmacy: [facility], 162.56, cm... [facility] Accu-Chek Marianela Plus Blood Glucose Test Strips 2019-10-06 18:08: 00 Yes , # 100 ea, Insulin dependen t, Does not use insulin pump, Last DM eval date 10/06/19, 0 Refill(s), Pharmacy: [facility], 162.56, c... [facility] Accu-Chek FastClix Lancets 2019-10-06 18:08:00 Yes , # 100 ea, Insulin dependent, Does not use insulin pump, Last DM eval date 10/06/19, 0 Refill(s), Pharmacy: [facility]... [facility] Accu-Chek FastClix Lancets Device 2019-10-06 18:08:00 Yes , # 1 ea, Insulin dependent, Does not use insulin pump, Last DM eval date 10/06/19, 0 Refill(s), Pharmacy: [facility], 162.56, cm... Esperanza Phelps pioglitazone 2019-10-06 16:00:00 No Notes: (Same as: Actos) Esperanza Phelps Metformin hydrochloride 1000 MG Oral Tablet 2019-10-05 22:00:00 No Notes: (Same as: Glucophage) Take with meal Esperanza Phelps Dextrose 50% Syringe (D50W) 2019-10-05 20:25:00 No 12.5 gm, 25 mL, Route: IVP, Drug Form: INJ, Dosing Weight 100.483, kg, PRN, PRN Blood Glucose Results, Start date: 10/05/19 15:25:00 CDT, Duration: 30 day, Stop date: 11/04/19 15:24:00 CDT, 0 Esperanza Chambers n Glucagon 2019-10-05 20:25:00 No 1 mg, Route: IM, Drug form: PDR/INJ, PRN, Dosing Weight 100.483, kg, PRN Blood Glucose Results, Start date: 10/05/19 15:25:00 CDT, Duration: 30 day, Stop date: 11/04/19 15:24:00 CDT, 0 [facility] Insulin Lispro 2019-10-05 20:25:00 No Notes: (Same as: Humalog) Roll in palms of hands gently; Do not shake vigorously. WASTE: F/P - Black; E - Municipal Trash Bin Stable for 28 days at room temperature. Expires in days from Date [facility] Albert wan Insulin Glargine 100 UNT/ML Injectable Solution 2019-10-05 18:00 :00 No Notes: (Same as: Lantus) Do not hold insulin without contacting prescriber WASTE: F/P - Black; E - Municipal Trash Bin "single patient use only" Stable for 28 days at room temperature Expires in days from Date [facility] Fenofibrate 145 MG Oral Tablet 2019-10-04 14:00:00 No 145 mg, 1 tab, Route: PO, Drug form: TAB, Daily, Dosing Weight 100.483, kg, Start date: 10/04/19 9:00:00 CDT, Duration: 30 day, Stop date: 11/02/19 9:00:00 CDT [facility] atorvastatin 2019-10-04 02:00:00 No Notes: (Same as: Lipitor) [facility] Gemfibrozil 2019-10-03 22:00:00 No 600 mg, 1 tab, Route: PO, Drug form: TAB, BID, Dosing Weight 100.483, kg, Start date: 10/03/19 17:00:00 CDT, Duration: 30 day, Stop date: 11/02/19 9:00:00 CDT [facility] Ciprofloxacin 2019-10-03 21:00:00 No Notes: Do not refrigerate [facility] Flagyl 2019-10-03 17:00:00 No Notes: (Same as: Flagyl) Avoid alcohol. [facility] Protonix 2019-10-03 15:00:00 No Notes: Tablet should not be chewed or crushed. (Same as: Protonix) [facility] Potassium Chloride 2019-10-03 14:45:00 No Notes: (Same as: KCL) Infuse no faster than 10 mEq/hr if given peripherally. [facility] sodium phosphate 2019-10-03 14:45:00 No Notes: Infuse over 4 hour. Do not infuse phosphorous concurrently in the same line as TPN or IVF that contains calcium. For double lumen central lines, phosphorous may be infused in a separate lumen from TPN. [facility] potassium phosphate 2019-10-03 14:45:00 No Notes: (Same as: K Phosphate.) Do not infuse phosphorous concurrently in the same line as TPN or IVF that contains calcium. For double lumen central lines, phosphorous may be infused in a separate lumen from TPN. 1 mMol phoshate has 1.47 mEq potassium Infuse over 4 hours [facility] potassium phosphate-sodium phosphate 250 mg-280 mg-160 mg oral powder for reconstitution 2019-10-03 14:45:00 No Notes: (Same as: Phos-NaK) Each 1.5 gm pkt has 250mg phosphorous. Mix w/2.5oz water and stir. [facility] Magnesium Sulfate 2019-10-03 14:45:00 No Notes: WASTE: F/P - Sink; E - Municipal Trash [facility] Magnesium Oxide 2019-10-03 14:45:00 No Notes: (Same as: Mag-Ox 400) Magnesium oxide [id number] elemental magnesium Dose=____mg magnesium oxide (___mg elemental magnesium) [facility] Calcium Gluconate 2019-10-03 14:45:00 No Notes: Contains: calcium gluconate 20mg/mL NaCl 0.67% 50mL WASTE: F/P - Sink; E - [facility] Calcium Carbonate 500 MG Chewable Tablet 2019-10-03 14:45:00 No Notes: (Same As: Tums) Calcium Carbonate 500 mg = 200 mg elemental calcium Dose = mg calcium carbonate ( mg elemental calcium) [facility] Insulin regular 100 unit + Sodium Chloride 0.9% (titrate) 99 mL 2019-10-03 14:40:00 No Notes: (Sa me as: Humulin R, NovoLIN R) Roll in palms of hands gently; Do not shake vigorously. WASTE: F/P - Black; E - Municipal Trash Bin Stable for 31 days at room temperature Expires in days from Date [facility] scout Dextrose 50% Syringe (D50W) 2019-10-03 14:40:00 No 25 gm, 50 mL, Route: IVP, Drug Form: INJ, Dosing Weight 100.483, kg, PRN, PRN Blood Glucose Results, Start date: 10/03/19 9:40:00 CDT, Duration: 30 day, Stop date: 11/02/19 9:39:00 CDT, 0 Esperanza Phelps D5LR 1,000 mL 2019-10-03 14:40:00 No 1,000 mL, Rate: Titrate, Route: IV, Dosing Weight 100.483 kg, Total Volume: 1,000, Start date: 10/03/19 9:40:00 CDT, Duration: 30 day, Stop date: 11/02/19 9:39:00 CDT, 2.16, m2, 0 [facility] D10W 1,000 mL 2019-10-03 14:40:00 No 1,000 mL, Rate: Titrate, Route: IV, Dosing Weight 100.483 kg, Total Volume: 1,000, Start date: 10/03/19 9:40:00 CDT, Duration: 30 day, Stop date: 11/02/19 9:39:00 CDT, 2.16, m2, 0 [facility] Lactated Ringers (titrate) IV 1,000 mL 2019-10-03 14:40:00 No 1,000 mL, Rate: Titrate, Dosing Weight 100.483, kg, Route: IV, Total Volume: 1,000, Start Date: 10/03/19 9:40:00 CDT, Duration: 30 day, Stop date: 11/02/19 9:39:00 CDT, Replace Every: 24 hr, 0 [facility] banner normal saline 0.9% IV 1,000 mL 2019-10-03 14:31:00 No 1,000 mL, Rate: 200 ml/hr, Infuse over: 5 hr, Route: IV, Dosing Weight 100.483 kg, Total Volume: 1,000, Start date: 10/03/19 9:31:00 CDT, Duration: 30 day, Stop date: 11/02/19 9:30:00 CDT, 2.16, m2, 0 Jasmynronn lito Phelps Fenofibrate 145 MG Oral Tablet 2019-10-03 14:15:00 No Notes: (Same as: Tricor) Esperanza Phelps Insulin Glargine 100 UNT/ML Injectable Solution 2019-10-03 14:13 :00 No Notes: (Same as: Lantus) Do not hold insulin without contacting prescriber WASTE: F/P - Black; E - Municipal Trash Bin "single patient use only" Stable for 28 days at room temperature Expires in days from Date Esperanza Mahajanann Lactated Ringers IV 1,000 mL 2019-10-03 14:12:00 No 1,000 mL, Rate: 250 ml/hr, Infuse over: 4 hr, Route: IV, Dosing Weight 100.483 kg, Total Volume: 1,000, Start date: 10/03/19 9:12:00 CDT, Duration: 12 hr, Stop date: 10/03/19 21:11:00 CDT, 2.16, m2, 0 Esperanza Katlin nn Amlodipine 2019-10-03 14:03:00 No Notes: (S jesenia as: Norvasc) Esperanza Phelps Glipizide 5 MG Oral Tablet 2019-10-03 09:17:00 No 5 mg = 1 tab, PO, BID, 0 Refill(s) Esperanza Lenin gemfibrozil 600 mg oral tablet 2019-10-03 09:17:00 No 600 mg = 1 tab, PO, BID, 0 Refill(s) Esperanza Katlin nn Amlodipine 2019-10-03 09:17:00 No 5 mg, PO, Daily, 0 Refill(s) Esperanza Phelps Enoxaparin 2019-10-03 09:00:00 No Notes: (S jesenia as: Lovenox) Esperanza [place] Lactated Ringers IV 1,000 mL 2019-10-03 08:12:00 No 1,000 mL, Rate: 125 ml/hr, Infuse over: 8 hr, Route: IV, Dosing Weight 104.545 kg, Total Volume: 1,000, Start date: 10/03/19 3:12:00 CDT, Duration: 30 day, Stop date: 11/02/19 3:11:00 CDT, 2.21, m2, 0 Esperanza Chambers n Ondansetron 2019-10-03 08:12:00 No Notes: (Same as: Zofran) MEDICATION WASTE Product Size: 4 mg Product Wasted: ___ mg [facility] Acetaminophen 2019-10-03 08:12:00 No Notes: Do not exceed 4 gm/day. (Same as: Tylenol) [facility] Morphine 2019-10-03 08:12:00 No Not es: (Same as:MORPhine Sulfate) [facility] Maalox Advanced Regular Strength SUSP 2019-10-03 08:12:00 N o Notes: (aluminum hydroxide-magnesium hyd-simethicone [phone]/5ml 30 ml ud SATISH) [facility] Robitussin 100 mg/5 mL oral liquid 2019-10-03 08:12:00 No Notes: (Same as: Robitussin) [facility] Trazodone 2019-10-03 08:12:00 No Notes: (Sa me As: Desyrel) [facility] Hydralazine 2019-10-03 08:12:00 No Notes: (Same as: Apresoline) Push over 5 minutes [facility] Dextrose 50% Syringe (D50W) 2019-10-03 08:12:00 No 12.5 gm, 25 mL, Route: IVP, Drug Form: INJ, Dosing Weight 104.545, kg, PRN, PRN Blood Glucose Results, Start date: 10/03/19 3:12:00 CDT, Duration: 30 day, Stop date: 11/02/19 3:11:00 CDT, 0 [facility] Glucagon 2019-10-03 08:12:00 No 1 mg, Route: IM, Drug form: PDR/INJ, PRN, Dosing Weight 104.545, kg, PRN Blood Glucose Results, Start date: 10/03/19 3:12:00 CDT, Duration: 30 day, Stop date: 11/02/19 3:11:00 CDT, 0 [facility] Insulin Lispro 2019-10-03 08:12:00 No Notes: (Same as: Humalog) Roll in palms of hands gently; Do not shake vigorously. WASTE: F/P - Black; E - Municipal Trash Bin Stable for 28 days at room temperature. Expires in days from Date [facility] Flagyl 2019-10-03 07:33:00 No Notes: (Same as: Flagyl) Avoid alcohol. [facility] Morphine 2019-10-03 07:33:00 No Not es: (Same as:MORPhine Sulfate) [facility] Zofran 2019-10-03 07:33:00 No Notes: (Same as: Zofran) MEDICATION WASTE Product Size: 4 mg Product Wasted: ___ mg [facility] Cipro 2019-10-03 07:32:00 No Notes: Do not refrigerate [facility] Sodium Chloride 0.9% (Bolus) IV 2019-10-03 05:55:00 No 1,000 mL, Infuse Over: 1 hr, Route: IV, ONCE, Priority: STAT, Dosing Weight 104.545 kg, Start date: 10/03/19 0:55:00 CDT, Stop date: 10/03/19 0:55:00 CDT [facility] Morphine 2019-10-03 05:55:00 No 4 mg, Route: IVP, ONCE, Dosing Weight 104.545, kg, Priority: STAT, Start date: 10/03/19 0:55:00 CDT, Stop date: 10/03/19 0:55:00 CDT [facility] Zofran 2019-10-03 05:55:00 No 4 mg, Route: IVP, Drug form: INJ, ONCE, Dosing Weight 104.545, kg, Priority: STAT, Start date: 10/03/19 0:55:00 CDT, Stop date: 10/03/19 0:55:[address] [facility] tab Phelps Acetaminophen/Codeine Phosphate (Tylenol # 3*) 1 Ea TA B Acetaminophen/Codeine Phosphate (Tylenol # 3*) 1 Ea TAB 2019-07-26 15:25:00 Yes 1 Every 6 Hours as needed for Moderate Pain (4-6) [facility] Amlodipine Besylate (Norvasc) 5 Mg TAB Amlodipine Besylate ( Norvasc) 5 Mg TAB 2019-07-26 15:25:00 Yes 5 Daily [facility] Glipizide Glipizide 2019-07-26 15:25:00 Yes 5 Twice A Day [facility] Gemfibrozil Gemfibrozil 2019-07-26 15:25:00 2019-09-10 00:00:00 No 600 Twice Daily Before Meals [facility] lisinopril 5 mg oral tablet 2019-02-23 13:58:06 Yes 5 mg = 1 tab, PO, Daily, # 30 tab, 0 Refill(s), Pharmacy: [address] Fenofibrate 145 MG Oral Tablet 2019-02-23 13:58:03 Yes 145 mg = 1 tab, PO, Daily, # 90 tab, 0 Refill(s), Pharmacy: [address] atorvastatin 40 mg oral tablet 2019-02-23 13:58:00 Yes 40 mg = 1 tab, PO, Bedtime, # 90 tab, 0 Refill(s), Pharmacy: [address] Metformin hydrochloride 500 MG Oral Tablet 2019-02-23 13:57:00 Yes 500 mg = 1 tab, PO, BID-Meals, # 60 tab, 0 Refill(s), Pharmacy: [address] pantoprazole 40 MG Enteric Coated Tablet [Protonix] 02-22 23:44:00 Yes 40 mg = 1 tab, P O, Daily, # 30 tab, 0 Refill(s), Pharmacy: [address] Bentyl 2019-02-20 18:30:00 No Notes: (Same as: Bentyl) [facility] Docusate Sodium 50 MG / sennosides, [facility] 8.6 MG Oral Tablet 2019 18:14:00 No Notes: (Same as Senokot-S) Equ iv. to Sarah-Colace. [facility] atorvastatin 2019-02-18 03:00:00 No Notes: (Same as: Lipitor) [facility] Acetaminophen 325 MG / Hydrocodone Bitartrate 5 MG Oral Tabl et [[place] 5/325] 2019-02-17 19:10:00 No Notes: (Same as: [place] 325/5) Do not exceed 4gm/day of acetaminophen. Esperanza Dalal nn Morphine 2019-02-17 19:10:00 No Not es: (Same as:MORPhine Sulfate) [facility] Fenofibrate 145 MG Oral Tablet 2019-02-17 15:36:00 No Notes: (Same as: Tricor) [facility] Lisinopril 2019-02-17 15:36:00 No Notes: (Same as: Prinivil, Zestril) [facility] pantoprazole 2019-02-17 13:30:00 No Notes: For IV push reconstitute with 10 ml 0.9% sodium chloride and push over 2 minutes. (Same as: Protonix) [facility] Dextrose 50% Syringe (D50W) 2019-02-17 12:14:00 No 12.5 gm, 25 mL, Route: IVP, Drug Form: INJ, Dosing Weight 109.091, kg, PRN, PRN Blood Glucose Results, Start date: 02/17/19 6:14:00 GO GO DANCER, Duration: 30 day, Stop date: 03/19/19 6:13:00 GO GO DANCER, 0 [facility] Glucagon 2019-02-17 12:14:00 No 1 mg, Route: IM, Drug form: PDR/INJ, PRN, Dosing Weight 109.091, kg, PRN Blood Glucose Results, Start date: 02/17/19 6:14:00 GO GO DANCER, Duration: 30 day, Stop date: 03/19/19 6:13:00 GO GO DANCER, 0 [facility] Insulin Lispro 2019-02-17 12:14:00 No Notes: (Same as: Humalog) Roll in palms of hands gently; Do not shake vigorously. WASTE: F/P - Black; E - Municipal Trash Bin Stable for 28 days at room temperature. Expires in days from Date [facility] Albert wan Ondansetron 2019-02-17 12:13:00 No 4 mg, Route: IVP, Q8H, Dosing Weight 109.091, kg, PRN Nausea & Vomiting, Start date: 02/17/19 6:13:00 GO GO DANCER, Duration: 30 day, Stop date: 03/19/19 6:12:00 GO GO DANCER [facility] Dextrose 50% Syringe (D50W) 2019-02-17 12:13:00 No 25 mL, Route: IVP, Dosing Weight 109.091, kg, PRN, PRN Blood Glucose Results, Start date: 02/17/19 6:13:00 GO GO DANCER, Duration: 30 day, Stop date: 03/19/19 6:12:00 GO GO DANCER [facility] Glucagon 2019-02-17 12:13:00 No 1 mg, Route: IM, PRN, Dosing Weight 109.091, kg, PRN Blood Glucose Results, Start date: 02/17/19 6:13:00 GO GO DANCER, Duration: 30 day, Stop date: 03/19/19 6:12:00 GO GO DANCER [facility] Bisacodyl 2019-02-17 12:13:00 No Notes: (Same As: Dulcolax, Bisco-Lax) [facility] Melatonin 2019-02-17 12:13:00 No Notes: (Sa me as: Melatonin) [facility] Lactated Ringers IV 1,000 mL 2019-02-17 12:13:00 No 1,000 mL, Rate: 125 ml/hr, Infuse over: 8 hr, Route: IV, Dosing Weight 109.091 kg, Total Volume: 1,000, Start date: 02/17/19 6:13:00 GO GO DANCER, Duration: 30 day, Stop date: 03/19/19 6:12:00 GO GO DANCER, 2.26, m2, 0 [facility] n Saline Flush 0.9% 2019-02-17 12:13:00 No Notes: (Same as: BD Posiflush) [facility] Morphine 2019-02-17 12:13:00 No Not es: (Same as:MORPhine Sulfate) [facility] Dilaudid 2019-02-17 10:51:00 No Notes: (William e as: Dilaudid) [facility] Sodium Chloride 0.9% (Bolus) IV 2019-02-17 09:18:00 No 1,000 mL, 1000 ml/hr, Infuse Over: 1 hr, Route: IV, 1,000, Drug form: INJ, ONCE, Priority: STAT, Dosing Weight 109.091 kg, Start date: 02/17/19 3:18:00 GO GO DANCER, Stop date: 02/17/19 3:18:00 GO GO DANCER, 0 Esperanza Phelps Morphine 2019-02-17 06:53:00 No Not es: (Same as:MORPhine Sulfate) Esperanza Phelps Ondansetron 2019-02-17 06:53:00 No Notes: (Same as: Desirae) MEDICATION WASTE Product Size: 4 mg Product Wasted: ___ mg [facility] Acetaminophen 300 MG / Codeine Phosphate 30 MG Oral Tablet [Tylenol with Codeine #3] 2018-12-02 21:55:00 Yes 1 - 2 tab, PO, Q4H, PRN Pain, X 3 day, # 20 tab, 0 Refill(s) [facility] Fenofibrate 145 MG Oral Tablet 2018-12-02 18:42:00 Yes 145 mg = 1 tab, PO, Daily, # 90 tab, 0 Refill(s), Pharmacy: [address] atorvastatin 40 mg oral tablet 2018-12-02 18:42:00 Yes 40 mg = 1 tab, PO, Bedtime, # 90 tab, 0 Refill(s), Pharmacy: [address] Acetaminophen 300 MG / Codeine Phosphate 30 MG Oral Tablet [Tylenol with Codeine #3] 2018-12-02 13:38:00 No Notes: Do not exceed 4gm/day of acetaminophen. (Same as: Tylenol with Codeine # 3) [facility] Dextrose 50% Syringe 2018-12-01 16:56:00 No 12.5 gm, 25 mL, Route: IVP, Drug Form: INJ, Dosing Weight 104.091, kg, PRN, PRN Blood Glucose Results, Start date: 12/01/18 11:56:00 CDT, Duration: 30 day, Stop date: 12/31/18 10:55:00 GO GO DANCER, 0 [facility] Glucagon 2018-12-01 16:56:00 No 1 mg, Route: IM, Drug form: PDR/INJ, PRN, Dosing Weight 104.091, kg, PRN Blood Glucose Results, Start date: 12/01/18 11:56:00 CDT, Duration: 30 day, Stop date: 12/31/18 10:55:00 GO GO DANCER, 0 [facility] Insulin Lispro 2018-12-01 16:56:00 No Notes: (Same as: Humalog) Roll in palms of hands gently; Do not shake vigorously. WASTE: F/P - Black; E - Municipal Trash Bin Stable for 28 days at room temperature. Expires in days from Date [facility] Albert wan Fenofibrate 145 MG Oral Tablet 2018-12-01 14:00:00 No Notes: (Same as: Tricor) [facility] atorvastatin 2018-12-01 02:00:00 No Notes: (Same as: Lipitor) [facility] Metformin hydrochloride 500 MG Oral Tablet 2018-11-30 22:00:00 No Notes: (Same as: Glucophage) Take with meal [facility] d50 syringe 2018-11-30 10:57:00 No 25 gm, 50 mL, Route: IV, Drug Form: INJ, Dosing Weight 109.091, kg, ONCE, Start date: 11/30/18 5:57:00 CDT, Stop date: 11/30/18 5:57:00 CDT, 0 [facility] [place] Saline Flush 0.9% 2018-11-29 02:00:00 No Notes: Same as: BD Posiflush Sterile [facility] Potassium Chloride 2018-11-28 19:39:00 No Notes: (Same as: KCL) Infuse no faster than 10 mEq/hr if given peripherally. [facility] sodium phosphate 2018-11-28 19:39:00 No Notes: Infuse over 4 hour. Do not infuse phosphorous concurrently in the same line as TPN or IVF that contains calcium. For double lumen central lines, phosphorous may be infused in a separate lumen from TPN. [facility] Keyshawn [place] potassium phosphate 2018-11-28 19:39:00 No Notes: (Same as: K Phosphate.) Do not infuse phosphorous concurrently in the same line as TPN or IVF that contains calcium. For double lumen central lines, phosphorous may be infused in a separate lumen from TPN. 1 mMol phoshate has 1.47 mEq potassium Infuse over 4 hours [facility] potassium phosphate-sodium phosphate 250 mg-280 mg-160 mg oral powder for reconstitution 2018-11-28 19:39:00 No Notes: (Same as: Phos-NaK) Each 1.5 gm pkt has 250mg phosphorous. Mix w/2.5oz water and stir. Esperanza Phelps Magnesium Sulfate 2018-11-28 19:39:00 No Notes: WASTE: F/P - Sink; E - Municipal Trash Bin Esperanza Phelps Magnesium Oxide 2018-11-28 19:39:00 No Notes: (Same as: Mag-Ox 400) Magnesium oxide [id number] elemental magnesium Dose=____mg magnesium oxide (___mg elemental magnesium) Esperanza zuñiga Calcium Gluconate 2018-11-28 19:39:00 No Notes: WASTE: F/P - Sink; E - Municipal Trash [facility] Calcium Carbonate 500 MG Chewable Tablet 2018-11-28 19:39:00 No Notes: (Same As: Tums) Calcium Carbonate 500 mg = 200 mg elemental calcium Dose = mg calcium carbonate ( mg elemental calcium) [facility] [place] Lovenox 2018-11-28 16:00:00 No Notes: (Same as: Lovenox) [facility] Calcium Chloride 0.0014 MEQ/ML / Potassi um Chloride 0.004 MEQ/ML / Sodium Chloride 0.103 MEQ/ML / Sodium Lactate 0.028 MEQ/ML Injectable Solution 2018-11-28 15:37:00 No 1,000 mL, 1,000 ml/hr, Infuse Over: 1 hr, Route: IV, 1,000, Drug form: INJ, ONCE, Priority: STAT, Dosing Weight 109.091 kg, Start date: 11/28/18 10:37:00 CDT, Stop date: 11/28/18 10:37:00 CDT, 0 [facility] Nystatin 100 UNT/MG Topical Powder 2018-11-28 15:31:00 No Notes: (Same as:Mycostatin, Nilstat) For external use only. [facility] Saline Flush 0.9% 2018-11-28 15:31:00 No Notes: Same as: BD Posiflush Sterile Esperanza Phelps D5W 1,000 mL 2018-11-28 15:26:00 No 1,000 mL, Rate: 250 ml/hr, Infuse over: 4 hr, Route: IV, Dosing Weight 109.091 kg, Total Volume: 1,000, Start date: 11/28/18 10:26:00 CDT, Duration: 30 day, Stop date: 12/28/18 11:26:00 GO GO DANCER, 2.26, m2, 0 Esperanza Mahajana nn Insulin regular 100 unit + Sodium Chloride 0.9% (titrate) 99 mL 2018-11-28 15:25:00 No Notes: (Sa me as: Humulin R, NovoLIN R) Roll in palms of hands gently; Do not shake vigorously. WASTE: F/P - Black; E - Municipal Trash Bin Stable for 31 days at room temperature Expires in days from Date [facility] Albert wan Dextrose 50% Syringe 2018-11-28 15:25:00 No 25 gm, 50 mL, Route: IVP, Drug Form: INJ, Dosing Weight 109.091, kg, PRN, PRN Blood Glucose Results, Start date: 11/28/18 10:25:00 CDT, Duration: 30 day, Stop date: 12/28/18 9:24:00 GO GO DANCER, 0 Esperanza Mahajanann Insulin regular 100 unit + Sodium Chloride 0.9% (titrate) 99 mL 2018-11-28 12:55:00 No Notes: (Sa me as: Humulin R, NovoLIN R) Roll in palms of hands gently; Do not shake vigorously. WASTE: F/P - Black; E - Municipal Trash Bin SEND TO ICU SEND TO ICU SEND TO ICU Esperanza Phelps Dextrose 50% Syringe 2018-11-28 12:55:00 No 25 gm, 50 mL, Route: IVP, Drug Form: INJ, Dosing Weight 109.091, kg, PRN, PRN Blood Glucose Results, Start date: 11/28/18 7:55:00 CDT, Duration: 30 day, Stop date: 12/28/18 6:54:00 GO GO DANCER, 0 Esperanza Phelps Ondansetron 2018-11-28 08:56:00 No Notes: (Same as: Desirae) MEDICATION WASTE Product Size: 4 mg Product Wasted: ___ mg Esperanza Phelps Dilaudid 2018-11-28 08:51:00 No Notes: Same as: Dilaudid Esperanza Phelps Dextrose 50% Syringe 2018-11-28 08:47:00 No 12.5 gm, 25 mL, Route: IVP, Drug Form: INJ, Dosing Weight 109.091, kg, PRN, PRN Blood Glucose Results, Start date: 11/28/18 3:47:00 CDT, Duration: 30 day, Stop date: 12/28/18 2:46:00 GO GO DANCER, 0 Esperanza Phelps Glucagon 2018-11-28 08:47:00 No 1 mg, Route: IM, Drug form: PDR/INJ, PRN, Dosing Weight 109.091, kg, PRN Blood Glucose Results, Start date: 11/28/18 3:47:00 CDT, Duration: 30 day, Stop date: 12/28/18 2:46:00 GO GO DANCER, 0 Esperanza Phelps Insulin Lispro 2018-11-28 08:47:00 No Notes: (Same as: Humalog) Roll in palms of hands gently; Do not shake vigorously. WASTE: F/P - Black; E - Municipal Trash Bin Stable for 28 days at room temperature. Expires in days from Date [facility] Albert wan Lactated Ringers IV 1,000 mL 2018-11-28 08:46:00 No 1,000 mL, Rate: 125 ml/hr, Infuse over: 8 hr, Route: IV, Dosing Weight 109.091 kg, Total Volume: 1,000, Start date: 11/28/18 3:46:00 CDT, Duration: 30 day, Stop date: 12/28/18 3:45:00 GO GO DANCER, 2.26, m2, 0 Esperanza Chambers n Ondansetron 2018-11-28 08:46:00 No 4 mg, Route: IVP, ONCE, Dosing Weight 109.091, kg, PRN Nausea & Vomiting, Start date: 11/28/18 3:46:00 CDT Esperanza Phelps Tramadol 2018-11-28 08:46:00 No Notes: Not to exceed 400mg/day. (Same As: Ultra) Esperanza Mahajanann Acetaminophen 325 MG / Hydrocodone Bitartrate 5 MG Oral Tabl et 2018-11-28 08:46:00 No Notes: (Sa me as: [place] 325/5) Do not exceed 4gm/day of acetaminophen. [facility] Hydromorphone 2018-11-28 08:46:00 No Notes: (Same as: Dilaudid) [facility] Metformin hydrochloride 500 MG Oral Tablet 2018-11-28 08:35:00 Yes 500 mg = 1 tab, PO, BID-Meals, # 180 tab, 1 Refill(s) [facility] Fenofibrate 145 MG Oral Tablet 2018-11-28 08:35:00 No 145 mg = 1 tab, PO, Daily, # 90 tab, 0 Refill(s) Sd claudio Phelps Morphine 2018-11-28 06:31:00 No Not es: (Same as:MORPhine Sulfate) Esperanza Phelps Zofran 2018-11-28 04:39:00 No 4 mg, Route: IVP, Drug form: INJ, ONCE, Dosing Weight 109.091, kg, Priority: STAT, Start date: 11/27/18 23:39:00 CDT, Stop date: 11/27/18 23:39:00 [facility] Morphine 2018-11-28 04:39:00 No 4 mg, Route: IVP, ONCE, Dosing Weight 109.091, kg, Priority: STAT, Start date: 11/27/18 23:39:00 CDT, Stop date: 11/27/18 23:39:00 CDT [facility] Her zuñiga NS (Bolus) IV 2018-11-28 04:39:00 No 1,000 mL, Route: IV, Drug form: INJ, ONCE, Priority: STAT, Dosing Weight 109.091 kg, Start date: 11/27/18 23:39:00 CDT, Stop date: 11/27/18 23:39:00 CDT [facility] atorvastatin (LIPITOR) 20 mg tablet 2018-09-13 00:00:0 0 2019-06-14 00:00:00 No Hyperlipidemia, unspecified hyperlipidemia type 20mg Take 1 tablet by mouth at bedtime nightly. [facility] fenofibrate nanocrystallized (TRICOR) 145 mg tablet 2018-09-13 00:00:00 2019-06-14 00:00:00 No Hypertriglyceridemia 145mg QD Take 1 tablet by mouth daily. [facility] lisinopril (PRINIVIL) 5 mg tablet 2018-09-13 00:00:00 2019 00:00:00 No Essential hypertension 5mg QD Take 1 tablet by mouth park giang [facility] metFORMIN (GLUCOPHAGE) 500 mg tablet 2018-09-13 00:00: 00 2019-06-14 00:00:00 No Type 2 diabetes mellitus wit hout complication, with long-term current use of insulin 500mg Take 1 tablet by vandana th 2 times daily (with meals) For diabetes. [facility] ibuprofen (MOTRIN) 400 mg tablet 2018-09-13 00:00:00 2019-05 00:00:00 No Elbow pain, chronic, left 400mg Take 1 tablet by mouth every 12 hours as needed for Pain (take with food). [facility] lancets 28 gauge 2017-11-10 00:00:00 Yes Type 2 diabetes mellitus without complication, with long-term current use of insulin 100{each} Use 2 times daily as needed [facility] blood glucose (PRECISION XTRA TEST STRIPS) test strips 2017-11-10 00:00:00 Yes Type 2 diabetes mellitus wit hout complication, with long-term current use of insulin 1{each} Q.5D Check blood glucose 2 times daily [facility] blood glucose meter 2017-09-23 00:00:00 Yes Newly diagnosed diabetes Use as directed.. [facility] Accu-Chek Marianela Care Kit 2017-09-12 22:01:00 Yes , # 1 ea, Not insulin dependent, Does not use insulin pump, Last DM eval date 09/12/17, 0 Refill(s) [facility] Accu-Chek Marianela Plus Blood Glucose Test Strips 2017-09-12 22:01: 00 Yes , # 100 ea, Not insulin depe ndent, Does not use insulin pump, Last DM eval date 09/12/17, 3 Refill(s) [facility] Accu-Chek [employer]ix Lancets Device 2017-09-12 22:01:00 Yes , # 1 ea, Not insulin dependent, Does not use insulin pump, Last DM eval date 09/12/17, 0 Refill(s) [facility] [employer] Accu-Chek [employer]ix Lancets 2017-09-12 22:01:00 Yes , # 100 ea, Not insulin dependent, Does not use insulin pump, Last DM eval date 09/12/17, 11 Refill(s) [facility] Accu-Chek Marianela Blood Glucose Meter 2017-09-12 22:01:00 Yes , # 1 ea, Insulin dependent, Does not use insulin pump, Last DM eval date 09/12/17, 0 Refill(s) [facility] NPH Insulin, Human 100 UNT/ML Injectable Suspension [Novolin N] 2017-09-12 20:36:22 Yes 10 unit, S UB-Q, TID-Before Meals, # 1 vial, 3 Refill(s), Pharmacy: [address] Regular Insulin, Human 100 UNT/ML Injectable Solution [Novol in R] 2017-09-12 20:36:00 Yes 10 unit, S UB-Q, TID-Before Meals, # 1 vial, 2 Refill(s), Pharmacy: [address] Regular Insulin, Human 100 UNT/ML Injectable Solution [Novol in R] 2017-09-12 20:36:00 Yes 10 unit, S UB-Q, TID-Before Meals, # 1 vial, 2 Refill(s), Pharmacy: [address] NPH Insulin, Human 100 UNT/ML Injectable Suspension [Novolin N] 2017-09-12 20:15:00 No 10 unit, S UB-Q, TID-Before Meals, # 1 vial, 3 Refill(s), Pharmacy: [address] Famotidine 20 MG Oral Tablet 2017-09-12 20:15:00 Yes 20 mg = 1 tab, PO, BID, # 60 tab, 0 Refill(s), Pharmacy: [address] insulin isophane (NPH) 100 units/mL human recombinant subcut aneous suspension 2017-09-12 20:15:00 Yes 20 unit, SUB-Q, Q12H, # 1 vial, 2 Refill(s), Pharmacy: [address] lisinopril 5 mg oral tablet 2017-09-12 20:15:00 Yes 5 mg = 1 tab, PO, Daily, # 30 tab, 0 Refill(s), Pharmacy: [address] potassium chloride + Sodium Chloride 0.9% IV 95 mL 2017-08-16 0 17:00:00 No Notes: MUST be Dilut ed before use (Same as: KCl) MEDICATION WASTE Product Size: 40 mEq Product Wasted: ___ mEq Esperanza Phelps Potassium Chloride 2017-09-12 16:20:00 No 40 mEq, Route: IV, ONCE, Dosing Weight 100, kg, Start date: 09/12/17 11:20:00 CDT, Stop date: 09/12/17 11:20:00 CDT Esperanza Phelps Potassium Chloride 2017-09-12 10:44:00 No Notes: (Same as: K-Dur 20) "Do Not Crush" For patients unable to swallow tablet, dissolve in one half glass of water. Allow about 2 minutes for the tablets to disintegrate. Stir before giving to prepare slurry and administer. Please exclude Patient s with feeding tube less than 14 [place] (Dobhoff, J-tube etc) and pediatric and patients. With food and full glass of water Esperanza Phelps Insulin Lispro 2017-09-12 02:07:00 No Notes: (Same as: Humalog ) Roll in palms of hands gently; Do not shake `vigorously. "Single Patient Use Only " WASTE: F/P - Black; E - Municipal Trash Bin Stable for 28 days at room temperature. Expires in days from Date Esperanza Phelps Docusate Sodium 100 MG Oral Capsule 2017-09-11 22:00:00 No Notes: (Same as: Colace) (Do Not Crush) Cat Phelps Saline Flush 0.9% 2017-09-11 21:24:00 No Notes: (Same as: BD Posiflush) [facility] [place] Sodium Chloride 0.9% IV 1,000 mL 2017-09-11 21:24:00 No 1,000 mL, Rate: 125 ml/hr, Infuse over: 8 hr, Route: IV, Dosing Weight 100 kg, Total Volume: 1,000, Start date: 09/11/17 16:24:00 CDT, Duration: 30 day, Stop date: 10/11/17 16:23:00 CDT, 2.16, m2 Esperanza Mahajanann Ondansetron 2017-09-11 21:24:00 No Notes: (Same as: Zofran) MEDICATION WASTE Product Size: 4 mg Product Wasted: ___ mg [facility] Morphine 2017-09-11 21:24:00 No Not es: (Same as:MORPhine Sulfate) [facility] acetaminophen-codeine #3 2017-09-11 21:24:00 No Notes: Do not exceed 4gm/day of acetaminophen. (Same as: Tylenol with Codeine # 3) [facility] normal saline 0.9% IV 1,000 mL 2017-09-11 21:15:00 No 1,000 mL, Rate: 75 ml/hr, Infuse over: 13.3 hr, Route: IV, Dosing Weight 100 kg, Total Volume: 1,000, Start date: 09/11/17 16:15:00 CDT, Duration: 30 day, Stop date: 10/11/17 16:14:00 CDT, 2.16, m2 [facility] neostigmine ([facility]) 2017-09-11 20:25:00 No Route: IV, Drug form: INJ, ONCE, Stop date: 09/11/17 15:25:00 CDT [facility] ketOROLAC ([facility]) 2017-09-11 20:25:00 No IV, ONCE [facility] glycopyrrolate ([facility]) 2017-09-11 20:25:00 No Route: IV, Drug form: INJ, ONCE, Stop date: 09/11/17 15:25:00 CDT [facility] acetaminophen ([facility]) 2017-09-11 20:10:00 No Route: IV, Drug form: INJ, ONCE, Stop date: 09/11/17 15:10:00 CDT [facility] metoclopramide ([facility]) 2017-09-11 20:10:00 No Route: IV, Drug form: INJ, ONCE, Stop date: 09/11/17 15:10:00 CDT [facility] ceFAZolin ([facility]) 2017-09-11 20:05:00 No Route: IV, Drug form: INJ, ONCE, Stop date: 09/11/17 15:05:00 CDT [facility] lidocaine ([facility]) 2017-09-11 19:53:00 No Route: IV, Drug form: INJ, ONCE, Stop date: 09/11/17 14:53:00 CDT angelina Phelps propofol ([facility]) 2017-09-11 19:53:00 No Route: IV, Drug form: INJ, ONCE, Stop date: 09/11/17 14:53:00 CDT angelina Phelps rocuronium (ANES) 2017-09-11 19:53:00 No Route: IV, Drug form: INJ, ONCE, Stop date: 09/11/17 14:53:[facility] mid[facility]am ([facility]) 2017-09-11 19:38:00 No Route: IV, Drug form: SOLN, ONCE, Stop date: 09/11/17 14:38:00 CDT [facility] fentaNYL ([facility]) 2017-09-11 19:38:00 No Route: IV, Drug form: INJ, ONCE, Stop date: 09/11/17 14:38:00 CDT Fred Phelps Lactated Ringers Injection IV ([facility]) 1000 mL 2017-09-11 19:06:00 No Route: IV, Total Volume: 1,000, Start date: 09/11/17 14:06:00 CDT, Stop date: 09/11/17 15:06:00 CDT [facility] Insulin regular 2017-09-11 18:11:00 No 5 unit, Route: IV, ONCE, Dosing Weight 100, kg, Priority: NOW, Start date: 09/11/17 13:11:00 CDT, Stop date: 09/11/17 13:11:00 CDT [facility] Tylenol 2017-09-10 20:23:00 No Notes: Do not exceed 4 gm/day. (Same as: Tylenol) [facility] Morphine 2017-09-10 20:23:00 No Notes: Preservative free. (Same as: Morphine Sulfate-PF) [facility] Acetaminophen 325 MG / Hydrocodone Bitartrate 5 MG Oral Tabl et [[place] 5/325] 2017-09-10 20:23:00 No Notes: (Same as: [place] 325/5) Do not exceed 4gm/day of acetaminophen. [facility] nn Magnesium Oxide 2017-09-10 19:36:00 No Notes: (Same as: Mag-Ox 400) Magnesium oxide [id number] elemental magnesium Dose=____mg magnesium oxide (___mg elemental magnesium) Esperanza zuñiga Calcium Gluconate 2017-09-10 19:36:00 No Notes: WASTE: F/P - Sink; E - Municipal Trash Bin [facility] sodium phosphate 2017-09-10 19:36:00 No 15 mmol, 5 mL, Route: IVPB, PRN, Dosing Weight 100, kg, PRN Abnormal Lab Result, For NON-ICU Patients Only., Start date: 09/10/17 14:36:00 CDT, Duration: 30 day, Stop date: 10/10/17 14:35:00 CDT [facility] Magnesium Sulfate 2017-09-10 19:36:00 No Notes: WASTE: F/P - Sink; E - Municipal Trash Bin [facility] potassium phosphate 2017-09-10 19:36:00 No Notes: (Same as: K Phosphate.) 1 mMol phoshate has 1.47 mEq potassium Infuse over 4 hours [facility] Potassium Chloride 2017-09-10 19:36:00 No Notes: MUST be Diluted before use (Same as: KCl) MEDICATION WASTE Product Size: 40 mEq Product Wasted: _30_ mEq [facility] potassium phosphate-sodium phosphate 250 mg-280 mg-160 mg oral powder for reconstitution 2017-09-10 19:36:00 No Notes: (Same as: Phos-NaK) Each 1.5 gm pkt has 250mg phosphorous. Mix w/2.5oz water and stir. [facility] Enoxaparin 2017-09-10 17:00:00 No Notes: (S jesenia as: Lovenox) [facility] Insulin Lispro 2017-09-10 17:00:00 No Notes: (Same as: Humalog ) Roll in palms of hands gently; Do not shake `vigorously. "Single Patient Use Only " WASTE: F/P - Black; E - Municipal Trash Bin Stable for 28 days at room temperature. Expires in days from Date [facility] insulin, isophane 2017-09-10 16:40:00 No Notes: Roll in palms of hands gently; Do not shake vigorously. (Same as: Humulin N) Do not hold insulin without contacting prescriber WASTE: F/P - Black; E - Municipal Trash Bin Stable for 28 days at room temperature Expires in days from Date Esperanza Phelps Lisinopril 2017-09-10 16:40:00 No Notes: (Same as: Prinivil, Zestril) Esperanza Phelps Famotidine 20 MG Oral Tablet 2017-09-10 16:20:00 No Notes: (Same as: Pepcid) Esperanza Mahajanann Insulin Lispro 2017-09-10 16:19:00 No Notes: (Same as: Humalog ) Roll in palms of hands gently; Do not shake `vigorously. "Single Patient Use Only " WASTE: F/P - Black; E - Municipal Trash Bin Stable for 28 days at room temperature. Expires in days from Date Esperanza Phelps Glucagon 2017-09-10 16:19:00 No 1 mg, Route: IM, Drug form: PDR/INJ, PRN, Dosing Weight 100, kg, PRN Blood Glucose Results, Start date: 09/10/17 11:19:00 CDT, Duration: 30 day, Stop date: 10/10/17 11:18:00 CDT Esperanza Mahajanann Dextrose 50% Syringe 2017-09-10 16:19:00 No 25 gm, 50 mL, Route: IVP, Drug Form: INJ, Dosing Weight 100, kg, PRN, PRN Blood Glucose Results, Start date: 09/10/17 11:19:00 CDT, Duration: 30 day, Stop date: 10/10/17 11:18:00 CDT Esperanza Lenin Mupirocin 0.02 MG/MG Topical Ointment 2017-09-10 02:00:00 N o 1 appl, Route: NASAL, Q12H, Drug form: OINT, Start date: 09/09/17 21:00:00 CDT, Duration: 5 day, Stop date: 09/14/17 9:00:00 CDT Esperanza Lenin Saline Flush 0.9% 2017-09-10 02:00:00 No Notes: preservative free. Esperanza Mahajanann Famotidine 2017-09-10 02:00:00 No Notes: (Same as: Pepcid) Can be dilute in 5-10cc NS IVP: Slow IV push over at least 2 minutes. Esperanza Phelps Glucagon 2017-09-09 22:57:00 No 1 mg, Route: IM, Drug form: PDR/INJ, PRN, Dosing Weight 100, kg, PRN Blood Glucose Results, Start date: 09/09/17 17:57:00 CDT, Duration: 30 day, Stop date: 10/09/17 17:56:00 CDT [facility] Dextrose 50% Syringe 2017-09-09 22:57:00 No 25 gm, 50 mL, Route: IVP, Drug Form: INJ, Dosing Weight 100, kg, PRN, PRN Blood Glucose Results, Start date: 09/09/17 17:57:00 CDT, Duration: 30 day, Stop date: 10/09/17 17:56:00 CDT [facility]per[facility] Phelps D5W 1/2NS 1,000 mL 2017-09-09 22:57:00 No 1,000 mL, Rate: 250 ml/hr, Infuse over: 4 hr, Route: IV, Dosing Weight 100 kg, Total Volume: 1,000, Start date: 09/09/17 17:57:00 CDT, Duration: 30 day, Stop date: 10/09/17 17:56:00 CDT, 2.14, m2 [facility] 1/2 NS 1,000 mL 2017-09-09 22:57:00 No 1,000 mL, Rate: 250 ml/hr, Infuse over: 4 hr, Route: IV, Dosing Weight 100 kg, Total Volume: 1,000, When Finger stick blood glucose values remain ABOVE 250 mg/dL, administer until BG is less than 250 mg/dL., Start date: 09/09/17 17:57:00 CDT, Duration... [facility] [place] Saline Flush 0.9% 2017-09-09 22:53:00 No Notes: preservative free. Esperanza Phelps Nystatin 100 UNT/MG Topical Powder 2017-09-09 22:53:00 No Notes: (Same as:Mycostatin, Nilstat) For external use only. [facility] Glucagon 2017-09-09 19:01:00 No 1 mg, Route: IM, Drug form: PDR/INJ, PRN, Dosing Weight 100, kg, PRN Blood Glucose Results, Start date: 09/09/17 14:01:00 CDT, Duration: 30 day, Stop date: 10/09/17 14:00:00 CDT Esper[facility] Phelps Dextrose 50% Syringe 2017-09-09 19:01:00 No 12.5 gm, 25 mL, Route: IVP, Drug Form: INJ, Dosing Weight 100, kg, PRN, PRN Blood Glucose Results, Start date: 09/09/17 14:01:00 CDT, Duration: 30 day, Stop date: 10/09/17 14:00:00 CDT [facility] [place] Insulin (regular) Titrate IV additive 10 0 unit + Sodium Chloride 0.9% (titrate) 99 mL 2017-09-09 19:01:00 No Notes: (Same as: Humulin R and NovoLIN R) WASTE: F/P - Black; E - Municipal Trash Bin (Do not shake) [facility] Potassium Chloride 2017-09-09 19:01:00 No Notes: (Same as: KCL) Infuse no faster than 10 mEq/hr if given peripherally. [facility] Magnesium Sulfate 2017-09-09 19:01:00 No Notes: WASTE: F/P - Sink; E - Municipal Trash Bin [facility] potassium phosphate 2017-09-09 19:01:00 No Notes: (Same as: K Phosphate.) 1 mMol phoshate has 1.47 mEq potassium Infuse over 4 hours [facility] Sodium Chloride 0.9% IV 1,000 mL 2017-09-09 19:01:00 No 1,000 mL, Rate: 250 ml/hr, Infuse over: 4 hr, Route: IV, Dosing Weight 100 kg, Total Volume: 1,000, When Finger stick blood glucose values remain ABOVE 250 mg/dL administer until BG is less than 250 mg/dL., Start date: 09/09/17 14:01:00 CDT, Duration:... [facility] [place] D5NS 1,000 mL 2017-09-09 19:01:00 No 1,000 mL, Rate: 250 ml/hr, Infuse over: 4 hr, Route: IV, Dosing Weight 100 kg, Total Volume: 1,000, Start date: 09/09/17 14:01:00 CDT, Duration: 30 day, Stop date: 10/09/17 14:00:00 CDT, 2.14, m2 [facility] [place] Sodium Chloride 0.9% (Bolus) IV 2017-09-09 18:59:00 No 1,000 mL, 1000 ml/hr, Infuse Over: 1 hr, Route: IV, 1,000, Drug form: INJ, ONCE, Priority: STAT, Dosing Weight 100 kg, Start date: 09/09/17 13:59:00 CDT, Stop date: 09/09/17 13:59:00 CDT [facility] Morphine 2017-09-09 17:12:00 No 4 mg, Route: IVP, ONCE, Dosing Weight 100, kg, Priority: STAT, Start date: 09/09/17 12:12:00 CDT, Stop date: 09/09/17 12:12:00 CDT [facility] Metoclopramide 2017-09-09 17:12:00 No 10 mg, Route: IVP, Drug form: INJ, ONCE, Dosing Weight 100, kg, Priority: STAT, Start date: 09/09/17 12:12:00 CDT, Stop date: 09/09/17 12:12:00 [facility] S[facility] Chlor[facility] 0.9% (Bolus) IV 2017-09-09 17:12:00 No 1,000 mL, Infuse Over: 1 hr, Route: IV, ONCE, Priority: STAT, Dosing Weight 100 kg, Start date: 09/09/17 12:12:00 CDT, Stop date: 09/09/17 12:12:00 CDT [facility] Sal[facility] Flush 0.9% 2017-09-09 17:12:00 No Notes: (Same as: BD Posiflush) [facility] Gemfibrozil Gemfibrozil Yes Bedtime [facility] Metformin Hcl Metformin Hcl 2019-07-26 00:00:00 No 500 Twice A Day [facility] Acetaminophen With Codeine (Tylenol With Codeine #3 Ta blet) 1 Each TABLET Acetaminophen With Codeine (Tylenol With Codeine #3 Tablet) 1 Each TABLET 2019-07-22 00:00:00 No 300 Every 6 Hours as needed for Moderate Pain (4-6) [facility] Immunizations Ordered Immunization Name Filled Immunization Name Date Status Comments Source Influenza, Vaccine<FLUCELVAX>(Multi-Dose) 2017-12-19 00:00 :00 Completed [facility] Tdap (Tetanus Toxoid, Reduced Diphtheria Toxoid And Acellular Pertussis, Absorbed) 2017-11-10 00:00:00 Completed [facility] ealt PPV 23 (Pneumococcal Polysaccharide 23 Valent) 2017-10 00:00:00 Completed [facility] Vital Signs Vital Name Observation Time Observation Value Comments Source Temperature Oral (F) 2019-10-06 12:23:00 97.7 F [facility] Heart Rate 2019-10-06 12:23:00 [facility] Systolic (mm Hg) 2019-10-06 12:23:00 [facility] Diastolic (mm Hg) 2019-10-06 12:23:00 [facility] [place] Systolic (mm Hg) 2019-10-06 09:13:00 [facility] [place] Diastolic (mm Hg) 2019-10-06 09:13:00 [facility] Heart Rate 2019-10-06 09:13:00 [facility] Temperature Oral (F) 2019-10-06 05:09:00 98.1 F [facility] [place] Heart Rate 2019-10-06 05:09:00 [facility] [place] Systolic (mm Hg) 2019-10-06 05:09:00 [facility] [place] Diastolic (mm Hg) 2019-10-06 05:09:00 [facility] [place] Temperature Oral (F) 2019-10-05 20:45:00 97.9 F [facility] [place] Respitory Rate 2019-10-05 20:45:00 [facility] [place] Respitory Rate 2019-10-05 16:00:00 [facility] [place] Respitory Rate 2019-10-05 14:00:00 [facility] [place] Height 2019-10-03 09:22:00 162.56 cm [facility] [place] Weight 2019-10-03 09:22:00 [facility] BMI Calculated 2019-10-03 09:22:00 [facility] [place] Height 2019-10-03 05:21:00 162.56 cm [facility] [place] BMI Calculated 2019-10-03 05:21:00 [facility] [place] Weight 2019-10-03 05:21:00 [facility] [place] Body Temperature 2019-09-15 12:00:00 97.5 [degF] [facility] BMI (Body Mass Index) 2019-09-15 00:03:00 10.1 kg/m2 [facility] Weight 2019-09-10 14:03:00 221 [lb_av] [facility] Body Temperature 2019-07-26 15:46:00 97.8 [degF] [facility] BMI (Body Mass Index) 2019-07-24 09:26:00 37.9 kg/m2 [facility] Weight 2019-07-22 21:26:00 221 [lb_av] [facility] Body Temperature 2019-07-08 12:20:00 97.3 [degF] [facility] BMI (Body Mass Index) 2019-07-07 01:08:00 39.5 kg/m2 [facility] Weight 2019-07-04 18:28:00 230 [lb_av] [facility] Temperature Oral (F) 2019-02-23 14:00:00 98.1 F [facility] Heart Rate 2019-02-23 14:00:00 [facility] [place] Respitory Rate 2019-02-23 14:00:00 [facility] [place] Systolic (mm Hg) 2019-02-23 14:00:00 [facility] [place] Diastolic (mm Hg) 2019-02-23 14:00:00 [facility] Temperature Oral (F) 2019-02-23 09:07:00 98 F [facility] [place] Heart Rate 2019-02-23 09:07:00 [facility] Respitory Rate 2019-02-23 09:07:00 [facility] Systolic (mm Hg) 2019-02-23 09:07:00 [facility] Diastolic (mm Hg) 2019-02-23 09:07:00 [facility] [place] Temperature Oral (F) 2019-02-23 05:03:00 97.5 F [facility] Heart Rate 2019-02-23 05:03:00 [facility] [place] Respitory Rate 2019-02-23 05:03:00 [facility] [place] Systolic (mm Hg) 2019-02-23 05:03:00 [facility] Diastolic (mm Hg) 2019-02-23 05:03:00 [facility] [place] Height 2019-02-17 12:15:00 162.56 cm [facility] [place] Weight 2019-02-17 12:15:00 [facility] [place] BMI Calculated 2019-02-17 12:15:00 [facility] Height 2019-02-17 06:46:00 162.56 cm [facility] [place] BMI Calculated 2019-02-17 06:46:00 [facility] Weight 2019-02-17 06:46:00 [facility] Heart Rate 2018-12-02 21:46:00 [facility] [place] Temperature Oral (F) 2018-12-02 21:08:00 98.6 F [facility] [place] Heart Rate 2018-12-02 21:08:00 [facility] [place] Respitory Rate 2018-12-02 21:08:00 [facility] [place] Systolic (mm Hg) 2018-12-02 21:08:00 [facility] Diastolic (mm Hg) 2018-12-02 21:08:00 [facility] Temperature Oral (F) 2018-12-02 16:19:00 98.3 F [facility] [place] Heart Rate 2018-12-02 16:19:00 [facility] [place] Respitory Rate 2018-12-02 16:19:00 [facility] [place] Systolic (mm Hg) 2018-12-02 16:19:00 [facility] [place] Diastolic (mm Hg) 2018-12-02 16:19:00 [facility] [place] Temperature Oral (F) 2018-12-02 12:37:00 98.2 F [facility] [place] Respitory Rate 2018-12-02 12:37:00 [facility] [place] Systolic (mm Hg) 2018-12-02 12:37:00 [facility] Diastolic (mm Hg) 2018-12-02 12:37:00 [facility] [place] Height 2018-11-30 14:00:00 162.56 cm [facility] BMI Calculated 2018-11-30 14:00:00 [facility] [place] Weight 2018-11-30 14:00:00 [facility] [place] Height 2018-11-30 10:11:00 162.56 cm [facility] [place] Height 2018-11-29 15:39:00 162.56 cm [facility] [place] BMI Calculated 2018-11-28 14:26:00 [facility] Weight 2018-11-28 14:26:00 [facility] Weight 2018-11-28 08:33:00 [facility] BMI Calculated 2018-11-28 08:33:00 [facility] [place] Temperature Oral (F) 2017-09-12 20:14:00 98.6 F [facility] Heart Rate 2017-09-12 20:14:00 [facility] Respitory Rate 2017-09-12 20:14:00 [facility] [place] Systolic (mm Hg) 2017-09-12 20:14:00 [facility] Diastolic (mm Hg) 2017-09-12 20:14:00 [facility] [place] Temperature Oral (F) 2017-09-12 16:06:00 98.3 F [facility] Heart Rate 2017-09-12 16:06:00 [facility] Systolic (mm Hg) 2017-09-12 16:06:00 [facility] [place] Diastolic (mm Hg) 2017-09-12 16:06:00 [facility] [place] Respitory Rate 2017-09-12 16:06:00 [facility] [place] Systolic (mm Hg) 2017-09-12 09:00:00 [facility] Diastolic (mm Hg) 2017-09-12 09:00:00 [facility] Heart Rate 2017-09-12 09:00:00 [facility] Temperature Oral (F) 2017-09-12 09:00:00 97.9 F [facility] [place] Respitory Rate 2017-09-12 01:39:00 [facility] [place] Height 2017-09-10 10:31:00 162.56 cm [facility] BMI Calculated 2017-09-09 15:47:00 [facility] [place] Height 2017-09-09 15:47:00 160.02 cm [facility] Weight 2017-09-09 15:47:00 [facility] [place] Procedures Procedure Date / Time Performed Performing Clinician [facility] e [facility] of abdomen and pelvis without contrast 2019-09-10 00:00:00 [facility] Computed tomography of abdomen and pelvis with contrast 00:00:00 [facility] Computed tomography of abdomen and pelvis with contrast 00:00:00 [facility] Plan of Care Planned Activity Planned Date Details Comments Source Future Scheduled Test 2019-11-15 00:00:00 IMM Influenza Seas onal Nov to April (>/= 19 yrs) [code = IMM Influenza Seasonal Nov to April (>/= 19 yrs)] [facility] Scheduled Test 2019-09-14 00:00:00 Hemoglobin A1c akash surement (procedure) [code = 01721291] [facility] Scheduled Test 2019-09-14 00:00:00 DM Retinal Exam (Y early) [code = DM Retinal Exam (Yearly)] [facility] Scheduled Test 2018-12-19 00:00:00 DM Foot Exam (Year ly) [code = DM Foot Exam (Yearly)] [facility] Scheduled Test 2018-11-10 00:00:00 Urine screening fo r protein (procedure) [code = 387484306] [facility] Encounters Start Date/Time End Date/Time [facility]counter [facility] Encounter ID Source 2019-10-03 00:04:42 2019-10-06 14:50:00 Outpatient Chloe Boothe [facility] [place] [place] [facility] [id number] 2019-10-03 02:33:00 2019-10-03 00:04:00 Inpatient E [facility] MED [id number] [facility] 2019-09-10 16:20:00 2019-09-15 16:00:00 Discharged Inpatient [address] [facility] [id number] [facility] 2019-07-22 11:05:00 2019-07-26 18:57:00 [facility] [id number] [facility] 2019-07-04 15:34:00 2019-07-08 15:41:00 [facility]charged [facility] [id number] [facility] 2019-02-17 00:16:27 2019-02-23 09:57:00 Outpatient Edna Mckinney [facility] [place] [place] [facility] [id number] 2019-02-17 04:44:00 2019-02-17 00:16:00 Inpatient E [facility] MED [id number] [facility] 2018-11-27 22:36:18 2018-12-02 18:58:00 Outpatient Edna Mckinney [facility] [id number] 2018-11-13 00:00:00 2018-11-13 00:00:00 Outpatient [facility] [id number] [facility] 2018-09-13 12:52:54 2018-09-13 12:52:54 Outpatient [facility] [id number] [facility] 2018-09-13 11:59:42 2018-09-13 11:59:42 Outpatient [facility] [id number] [facility] 2018-09-13 11:50:56 2018-09-13 11:50:56 Outpatient [facility] [id number] [facility] 2018-09-13 10:43:26 2018-09-13 10:43:26 Outpatient [facility] [id number] [facility] 2018-09-13 00:00:00 2018-09-13 00:00:00 Outpatient [facility] [id number] [facility] 2018-07-26 15:23:18 2018-07-26 15:23:18 Outpatient [facility] [id number] [facility] 2018-02-21 00:00:00 2018-02-21 00:00:00 Outpatient [facility] [id number] [facility] 2018-02-09 08:43:51 2018-02-09 08:43:51 Outpatient [facility] [id number] [facility] 2018-01-16 00:00:00 2018-01-16 00:00:00 Outpatient [facility] [id number] [facility] 2017-12-28 00:00:00 2017-12-28 00:00:00 Outpatient [facility] [id number] [facility] 2017-12-19 15:16:04 2017-12-19 15:16:04 Outpatient [facility] [id number] [facility] 2017-12-13 00:00:00 2017-12-13 00:00:00 Outpatient [facility] [id number] [facility] 2017-12-13 00:00:00 2017-12-13 00:00:00 Outpatient [facility] [id number] [facility] 2017-12-13 00:00:00 2017-12-13 00:00:00 Outpatient [facility] [id number] [facility] 2017-11-21 00:00:00 2017-11-21 00:00:00 Outpatient [facility] [id number] [facility] 2017-11-21 00:00:00 2017-11-21 00:00:00 Outpatient [facility] [id number] [facility] 2017-11-10 15:37:03 2017-11-10 15:37:03 Outpatient [facility] [id number] [facility] 2017-11-10 15:32:56 2017-11-10 15:32:56 Outpatient [facility] [id number] [facility] 2017-11-10 13:32:59 2017-11-10 13:32:59 Outpatient [facility] [id number] [facility] 2017-09-23 14:38:25 2017-09-23 14:38:25 Outpatient [facility] [id number] [facility] 2017-09-09 10:40:00 2017-09-12 18:45:00 Outpatient Durga Steven Jazz [facility] [id number] 2017-09-09 10:40:00 2017-09-12 18:45:00 [id number] 2017-09-11 07:00:00 2017-09-11 23:59:59 Outpatient Charles Chang [facility] [id number] Results Test Description Test Time Test Comments Results Result Comments Source CHEM PANEL 2019-10-06 09:27[facility] [facility] 2019-10-06 09:27[facility] [facility] CHEM PANEL 2019-10-06 09:27:00 2.2 Memor [facility] CHEM PANEL 2019-10-06 09:27:00 136 [facility] CHEM PANEL 2019-10-06 09:27:00 6 [facility]or [facility] CHEM PANEL 2019-10-06 09:27:00 0.74 Memor [facility] CHEM PANEL 2019-10-06 09:27:00 [facility] 2019-10-06 09:27:00 4.3 Memor [facility] CHEM PANEL 2019-10-06 09:27:[address] CHEM PANEL 2019-10-06 09:27:00 30 [facility] [place] CHEM PANEL 2019-10-06 09:27:00 9.7 [facility] CHEM PANEL 2019-10-06 09:27:00 7.3 [facility] CHEM PANEL 2019-10-06 09:27:00 3.6 [facility] CHEM PANEL 2019-10-06 09:27:00 52 [facility] CHEM PANEL 2019-10-06 09:27:00 40 [facility] [place] CHEM PANEL 2019-10-06 09:27:00 76 [facility] CHEM PANEL 2019-10-06 09:27:00 0.7 [facility] CHEM PANEL 2019-10-06 09:27:00 9.3 [facility] CHEM PANEL 2019-10-06 09:27:00 Test Item B/C Ratio (test code = B/C Ratio) 8 1 6-25 [facility] HermannCHEM [id number] 09:27:003.7[facility]ann[facility]M PANEL 2019-10-06 09:27:00* Test Item Value Reference Range Interpretation Comments A/G Ratio (test code = A/G Ratio) 1.0 1 0.7-1.6 [facility]annCHEM [id number] 09:27:91243Ybpvtknj HermannHEMATOLOGY 2019-10-06 09:27:0052.2[facility] GlixemrYYNIKGEDHC3442-23-59 09:27:0029.0[facility] OmxorvdSJPCRDNRQP2356-76-18 09:27:009.1[facility] GwijnzkJGMKWHMLGS2684-94-41 09:27:009.0[facility] BnpjhivTZHUYERNKH2359-84-46 09:27:000.7[facility] RGZVLWXOPS2886-91-65 09:27:002.6[facility] KhdjyfcSJIFZPYGTN4939-42-49 09:27:001.4 [facility] IdyjrxtWWEPYSFBLH7852-44-02 09:27:000.5[facility] HermannHEMATOLOGY 2019-10-06 09:27:000.4[facility] YtzpiodNFMRPPLSOL7088-14-02 09:27:005.0[facility] PogucuzKFPXGDDXZD8578-52-61 09:27:004.85[facility] ZuzksexNFZSBMZCTZ2375-63-87 09:27:0013.9[facility] EfagapcEMSNBJTXCI4632-78-15 09:27:0041.2[facility] [place] NQRHIPSIZR8523-54-44 09:27:0084.9[facility] ZjjbjavHAARCXQCAK8865-66-03 09:27:00* Test Item Value Reference Range Interpretation Comments MCH (test code = MCH) 28.7 pg 27.0-31.0 [facility] EuxdjxjZBRMBCTRGB8909-25-14 09:27:0033.8[facility] HermannHEMATOLOGY 2019-10-06 09:27:0013.8[facility] DzwuobyGJRDAFVXWY9388-56-93 09:27:41469Prairssa RympxudMDGYLRXGQO8869-98-80 09:27:007.8[facility] PpygxhhCWLBXJ8502-21-55 15:10:00 621[facility] HermannCHEM HOIUJ5150-79-92 10:43:80518Lpiunpyo HermannCHEM PANEL 2019-10-05 10:43:002[facility] HermannCHEM ILPFV2466-45-08 10:43:000.73[facility] HermannCHEM KNSES1052-11-23 10:43:53593Wcvtfrac HermannCHEM AITML9026-63-54 10:43:004.3[facility] HermannCHEM YUINT2381-44-10 10:43:01914Xdezxlew HermannCHEM OUWBH5705-34-49 10:43:0029[facility] HermannCHEM WLPBL0902-21-33 10:43:008.9 [facility]annCHEM YGRSM1560-12-61 10:43:006.8[facility] HermannCHEM PANEL 2019-10-05 10:43:003.2[facility] HermannCHEM QTPCN4027-48-43 10:43:0052[facility] HermannCHEM NZTTI5652-28-77 10:43:0059[facility] HermannCHEM DFJRG1362-28-74 10:43:0080[facility] HermannCHEM FDUDI5595-97-07 10:43:000.9[facility] HermannCHEM ZRGFP9993-79-04 10:43:0010.3[facility] HermannCHEM IQOWC8639-91-88 10:43:00* Test Item Value Reference Range Interpretation Comments B/C Ratio (test code = B/C Ratio) 3 1 6-25 [facility]annCHE[facility] [id number] 10:43:003.6[facility] HermannCHEM PANEL 2019-10-05 10:43:00* Test Item Value Reference Range Interpretation Comments A/G Ratio (test code = A/G Ratio) 0.9 1 0.7-1.6 [facility]ann[facility] [id number] 10:43:33546Mcxhfdzd HermannCHEM PANEL 2019-10-05 09:42:001.6[facility] HermannCHEM TQRHO3592-54-75 09:42:99489Gjpasmuw HermannCHEM INBZC0843-71-60 09:42:0036[facility] RxalifmBLGZGMCLQF4033-23-35 09:42:0055.0[facility] GrloqogRURGKPUBDN6547-10-39 09:42:0025.8[facility] UWHAOUQQWL7986-27-32 09:42:009.9[facility] UayjquwLBEZITMNAB8712-69-55 09:42:008.6 [facility] IhwoycsSUUYSCKOOV8835-21-73 09:42:000.7[facility] HermannHEMATOLOGY 2019-10-05 09:42:003.1[facility] NdqptvlEXYJZXOFGE4909-31-78 09:42:001.4[facility] GehycgrTMNKFNYKZC7032-99-49 09:42:000.6[facility] PfhgunaQIYSQAGMDX5709-82-24 09:42:000.5[facility] WwnvhfoQTFXYKDMYI5355-59-88 09:42:005.6[facility] JIHOSFWWHU1890-05-51 09:42:004.43[facility] BejqtelGKFNOJCNDX3519-71-45 09:42:00 12.emorial HfvwkniPXGXPJXKHR4496-34-49 09:42:0037.9[facility] HermannHEMATOLOGY 2019-10-05 09:42:0085.5[facility] ZkrfucwTELFYTHJOQ0864-24-38 09:42:00* Test Item Value Reference Range Interpretation Comments MCH (test code = MCH) 28.5 pg 27.0-31.0 [facility] PzpurufHRCVJDJABJ5749-05-40 09:42:0033.3[facility] HermannHEMATOLOGY 2019-10-05 09:42:0013.6[facility] PddlvnyPWTKOMFXDX7213-61-86 09:42:58515Lupycjgk GzhbamxLEQKUXMHEH4806-35-30 09:42:008.1[facility] EnhbzoaNNAYVP0136-62-16 09:42:00 536[facility] JnxrnemUJFYLFIWJGAQ2035-68-13 05:16:003.8[facility] HermannCHEM PANEL 2019-10-04 08:51:67115Oryoshin HermannCHEM TCCRT0207-43-43 08:51:0090[facility] HermannCHEM CELLB5163-76-35 08:51:005[facility] HermannCHEM UKSOP5196-28-46 08:51:000.66[facility] HermannCHEM PLABK0879-31-13 08:51:28688Jwwzaclv HermannCHEM IVTIH2921-33-90 08:51:55485Olmhcqts HermannCHEM GPABO2523-82-56 08:51:0030 [facility]annCHE[facility] VDUUQ5597-98-21 08:51:009.3[facility] HermannCHEM PANEL 2019-10-04 08:51:007.0[facility] HermannCHEM EBXUS9499-32-57 08:51:003.6[facility] HermannCHEM ZGDLU2390-42-55 08:51:0042[facility] HermannCHEM BVWCS0199-75-36 08:51:0034[facility] HermannCHEM TPQMJ3964-75-56 08:51:0081[facility]annCHEM KFNPN1711-11-21 08:51:000.7[facility]annCHEM BPAEQ2863-73-39 08:51:009.4 [facility]annCHE[facility] KRNJZ3291-88-72 08:51:00* Test Item Value Reference Range Interpretation Comments B/C Ratio (test code = B/C Ratio) 8 1 6-25 [facility]annCHE[facility] YXDSU0540-11-52 08:51:003.4[facility] HermannCHEM PANEL 2019-10-04 08:51:00* Test Item Value Reference Range Interpretation Comments A/G Ratio (test code = A/G Ratio) 1.1 1 0.7-1.6 [facility]annCHE[facility] MDUJG8791-12-20 08:51:82073Fsxrswcg HermannCHEM PANEL 2019-10-04 08:51:002.0[facility] HermannCHEM BSYXM9751-85-49 08:51:0093[facility] HermannCHEM ZFTUK1049-03-97 08:51:006[facility] HermannCHEM KAVCH6500-11-52 08:51:000.73[facility] HermannCHEM HLJUO3960-48-29 08:51:60979Amrmfzge HermannCHEM JKRAB6632-43-07 08:51:63469Scgbluky HermannCHEM BAHBV0640-58-06 08:51:0030 [facility]annCHE[facility] ZFIMD4410-46-91 08:51:009.4[facility] HermannCHEM PANEL 2019-10-04 08:51:007.0[facility] HermannCHEM IVLIP5241-14-27 08:51:003.6[facility] HermannCHEM GHCNS2188-43-15 08:51:0040[facility] HermannCHEM DGODP4671-27-82 08:51:0033[facility] HermannCHEM IFMRZ6434-45-90 08:51:0079[facility]annCHEM DRUDJ7517-48-71 08:51:000.6[facility]annCHEM PUQSR7222-69-10 08:51:009.4 [facility]annCHEM MPXEX7763-53-05 08:51:00* Test Item Value Reference Range Interpretation Comments B/C Ratio (test code = B/C Ratio) 8 1 6-25 [facility]annCHEM GGJXZ3745-08-88 08:51:003.4[facility] HermannCHEM PANEL 2019-10-04 08:51:00* Test Item Value Reference Range Interpretation Comments A/G Ratio (test code = A/G Ratio) 1.1 1 0.7-1.6 [facility]annCHEM EZMPH6608-08-78 08:51:12726Xctjoluz HermannCHEM PANEL 2019-10-04 08:51:0060[facility] HermannCHEM SVZYL1706-26-43 08:51:002.0[facility]annCHEM OELVL5528-97-58 08:51:00<0.1[facility]annCHEM XQQEM9900-54-93 08:51:004.2[facility] DamqlckLXENHCDFGJ8755-40-01 08:51:007.1[facility] KZINPUZVUM8124-17-85 08:51:004.95[facility] NvcpuytHKNPHJPTBJ8533-03-36 08:51:00 14.1[facility] OynbkttVIHYCWTDEX9048-48-14 08:51:0041.3[facility] HermannHEMATOLOGY 2019-10-04 08:51:0083.5[facility] ZuwwpogCCIXOKJVFN2188-02-79 08:51:00* Test Item Value Reference Range Interpretation Comments MCH (test code = MCH) 28.6 pg 27.0-31.0 [facility] UhgsxjzCDKHBFOCSM3886-78-46 08:51:0034.2[facility] HermannHEMATOLOGY 2019-10-04 08:51:0013.4[facility] EeycvzcPPNNLDBAQH4060-34-68 08:51:63831Rqmztdal LyqpyarOLNGXCLRKX2385-40-23 08:51:007.9[facility] HpnsnshBFWWIOONZL6104-77-33 08:51:0071.5[facility] GatenfpFWIOUHCABA8549-43-73 08:51:0016.3[facility] [place] ZLOYJMGJFY2018-70-31 08:51:008.9[facility] YlnlszmFHPLPEWEIS9072-68-51 08:51:002.8 [facility] SxeplveEDLXXVIONC1655-70-91 08:51:000.5[facility]annHEMATOLOGY 2019-10-04 08:51:005.1[facility] GbfwakuQUZWNBXQRO8413-73-31 08:51:001.2[facility] AkfbymgDNKQJYBBPR4636-58-41 08:51:000.6[facility] MjiksgzPCTQQCGIQZ1504-64-53 08:51:000.2[facility] RghwemuAOKTAN9241-18-49 08:51:048478Lzxhtrxl HermannCHEM JCMPL2103-11-63 16:18:000.3[facility] HermannCHEM KGRSS3755-76-68 15:02:00<0.05 [facility]annSPECIAL ZUZDCRJGY2722-54-70 15:02:009.4[facility]annURINE AND HJVMN3637-06-59 08:18:00Clear (10/03/19 3:18 AM)[facility] STOOL 2019-10-03 08:18:00* Test Item Value Reference Range Interpretation Comments UA pH (test code = UA pH) 5.0 1 5.0-8.0 [facility] EVWMF9117-90-57 08:18:00Negative *NA*(10/03/19 3:18 AM) [facility] CMDWM9791-36-56 08:18:00Negative (10/03/19 3:18 AM) [facility] XBLIB9435-18-37 08:18:00Negative (10/03/19 3:18 AM) [facility] NBIKP0797-22-30 08:18:00Negative (10/03/19 3:18 AM) [facility] SVCTT3946-06-11 08:18:001[facility]UR[facility] AND MNGBR7693-51-51 08:18:004[facility] AND KZRWG4694-20-02 08:18:00> =1.050 *ABN*(10/03/19 3:18 AM)[facility] SwozxqnCXMLAITDFP6277-85-93 06:10:00Normal (10/03/19 1:10 AM)[facility] JegckmwPUCEDNFQKI8854-96-90 06:10:00Normal (10/03/19 1:10 AM)[facility] LqrbfjuPMHYRWJTWV4920-67-66 06:10:000.1[facility] [place] Capillary blood glucose measurement by glucometer (mass/volume)2019-09-15 11:04:00* Test Item Value Reference Range Interpretation Comments Bedside Glucose (test code = 53953-5) 258 70-120 Meter ID: [id number] [facility] Northeasterum or plasma sodium measurement (moles/volume)2019-09-15 05:15:00* Test Item Value Reference Range Interpretation Comments Sodium Level (test code = 2951-2) 139 136-145 [facility] potassium measurement (moles/volume)2019-09-15 05:15:00* Test Item Value Reference Range Interpretation Comments Potassium Level (test code = 2823-3) 4.2 3.5-5.1 [facility] chloride measurement (moles/volume)2019-09-15 05:15:00* Test Item Value Reference Range Interpretation Comments Chloride Level (test code = 2075-0) 103 98-107 [facility] plasma carbon dioxide, total measurement (moles/volume)2019-09-15 05:15:00* Test Item Value Reference Range Interpretation Comments Carbon Dioxide Level (test code = 2028-9) 25 22-29 [facility] plasma anion uyc9513-94-99 05:15:00* Test Item Value Reference Range Interpretation Comments Anion Gap (test code = 43386-7) 15.2 8-16 [facility] urea nitrogen measurement (mass/volume)2019-09-15 05:15:00* Test Item Value Reference Range Interpretation Comments Blood Urea Nitrogen (test code = 3094-0) 5 7-26 [facility] creatinine measurement (mass/volume)2019-09-15 05:15:00* Test Item Value Reference Range Interpretation Comments Creatinine (test code = 2160-0) 0.74 0.72-1.25 [facility] plasma urea nitrogen/creatinine mass ckluy9409-02-47 05:15:00* Test Item Value Reference Range Interpretation Comments BUN/Creatinine Ratio (test code = 3097-3) 7 6-25 [facility] CenterEstimated glomerular filtration rate (GFR) poslajtlwlhtb1756-29-79 05:15:00* Test Item Value Reference Range Interpretation Comments Estimat Glomerular Filtration Rate (test code = 972007454) > 60 >60 Ranges were taken from the National Kidney Disease Education Program and the [facility] literature.Reference ranges:60 or greater: Ubjstm33-19 ( for 3 consecutive months): Chronic kidney disease 15 or less: Kidney failureGraham Regional Medical CenterGlucose idfjparskhx0374-59-66 05:15:00* Test Item Value Reference Range Interpretation Comments Glucose Level (test code = ANA1462) 126 74-118 [facility] calcium measurement (mass/volume)2019-09-15 05:15:00* Test Item Value Reference Range Interpretation Comments Calcium Level (test code = 69076-1) 9.7 8.4-10.2 [facility] CenterBlood leukocytes automated count (number/volume)2019-09-13 05:10:00* Test Item Value Reference Range Interpretation Comments White Blood Count (test code = 6690-2) 5.07 4.8-10.8 [facility] CenterBlood erythrocytes automated count (number/volume)2019-09-13 05:10:00* Test Item Value Reference Range Interpretation Comments Red Blood Count (test code = 789-8) 4.18 4.3-5.7 [facility] CenterBlood hemoglobin measurement (moles/volume)2019-09-13 05:10:00* Test Item Value Reference Range Interpretation Comments Hemoglobin (test code = 29673-3) 12.5 14.0-18.0 [facility] CenterAutomated blood hematocrit (volume fraction)2019-09-13 05:10:00* Test Item Value Reference Range Interpretation Comments Hematocrit (test code = 4544-3) 36.2 38.2-49.6 [facility] CenterAutomated erythrocyte mean corpuscular dolmqp2495-51-85 05:10:00* Test Item Value Reference Range Interpretation Comments Mean Corpuscular Volume (test code = 787-2) 86.6 81-99 [facility] CenterAutomated erythrocyte mean corpuscular hemoglobin (mass per erythrocyte)2019-09-13 05:10:00* Test Item Value Reference Range Interpretation Comments Mean Corpuscular Hemoglobin (test code = 785-6) 29.9 28-32 [facility] CenterAutomated erythrocyte mean corpuscular hemoglobin concentration measurement (mass/volume)2019-09-13 05:10:00* Test Item Value Reference Range Interpretation Comments Mean Corpuscular Hemoglobin Concent (test code = 786-4) 34.5 31-35 [facility] CenterRDW LrcXa-Ijg2834-18-30 05:10:00* Test Item Value Reference Range Interpretation Comments Red Cell Distribution Width (test code = 68936-6) 13.2 11.7 -14.4 [facility] CenterAutomated blood platelet count (count/volume)2019-09-13 05:10:00* Test Item Value Reference Range Interpretation Comments Platelet Count (test code = 777-3) 181 140-360 [facility] CenterAutomated blood segmented neutrophil count as percentage of total qolwvuscmf4835-33-75 05:10:00* Test Item Value Reference Range Interpretation Comments Neutrophils (%) (Auto) (test code = 05806-4) 57.1 38.7-80.0 [facility] CenterAutomated blood lymphocyte count as percentage ot total abcnrjdoyv4640-69-79 05:10:00* Test Item Value Reference Range Interpretation Comments Lymphocytes (%) (Auto) (test code = 736-9) 28.2 18.0-39.1 [facility] CenterAutomated blood monocyte count as percentage of total estlmvmzbq1970-94-37 05:10:00* Test Item Value Reference Range Interpretation Comments Monocytes (%) (Auto) (test code = 5905-5) 9.9 4.4-11.3 [facility] CenterAutomated blood eosinophil count as percentage of total fvuhslixpz7952-45-61 05:10:00* Test Item Value Reference Range Interpretation Comments Eosinophils (%) (Auto) (test code = 713-8) 3.4 0.0-6.0 [facility] CenterAutomated blood basophil count as percentage of total nfggqoswmc9473-97-34 05:10:00* Test Item Value Reference Range Interpretation Comments Basophils (%) (Auto) (test code = 706-2) 1.0 0.0-1.0 [facility] CenterFluoroscopic procedure less than one hour xnnygfaf6493-64-13 05:10:00* Test Item Value Reference Range Interpretation Comments IM GRANULOCYTES % (test code = IM GRANULOCYTES %) 0.4 0.0- 1.0 [facility] CenterAutomated blood neutrophil count 2019-09-13 05:10:00* Test Item Value Reference Range Interpretation Comments Neutrophils # (Auto) (test code = 751-8) 2.9 2.1-6.9 [facility] CenterBlood lymphocytes count (number/volume) 2019-09-13 05:10:00* Test Item Value Reference Range Interpretation Comments Lymphocytes # (Auto) (test code = 52009-1) 1.4 1.0-3.2 [facility] CenterBlood monocytes automated count (number/volume)2019-09-13 05:10:00* Test Item Value Reference Range Interpretation Comments Monocytes # (Auto) (test code = 742-7) 0.5 0.2-0.8 [facility] CenterAutomated blood eosinophil count 2019-09-13 05:10:00* Test Item Value Reference Range Interpretation Comments Eosinophils # (Auto) (test code = 711-2) 0.2 0.0-0.4 [facility] CenterAutomated blood basophil count (count/volume)2019-09-13 05:10:00* Test Item Value Reference Range Interpretation Comments Basophils # (Auto) (test code = 704-7) 0.1 0.0-0.1 [facility] CenterFluoroscopic procedure less than one hour qoznfmzv2631-35-74 05:10:00* Test Item Value Reference Range Interpretation Comments Absolute Immature Granulocyte (auto (laron t code = Absolute Immature Granulocyte (auto) 0.02 0-0.1 [facility] total bilirubin measurement (mass/volume)2019-09-12 04:55:00* Test Item Value Reference Range Interpretation Comments Total Bilirubin (test code = 1975-2) 0.8 0.2-1.2 [facility] CenterFluoroscopic procedure less than one hour uoqqcjhs0686-10-63 04:55:00* Test Item Value Reference Range Interpretation Comments Aspartate Amino Transf (AST/SGOT) (test code = Aspartate Amino Transf (AST/SGOT)) 26 5-34 [facility]aster[facility] or plasma alanine aminotransferase measurement (enzymatic activity/volume)2019-09-12 04:55:00* Test Item Value Reference Range Interpretation Comments Alanine Aminotransferase (ALT/SGPT) (test code = 1742-6) 34 0-55 [facility] or plasma protein measurement (mass/volume)2019-09-12 04:55:00* Test Item Value Reference Range Interpretation Comments Total Protein (test code = 2885-2) 7.4 6.5-8.1 [facility] albumin measurement (mass/volume)2019-09-12 04:55:00* Test Item Value Reference Range Interpretation Comments Albumin (test code = 1751-7) 3.6 3.5-5.0 [facility] CenterPlasma globulin measurement (mass/volume) 2019-09-12 04:55:00* Test Item Value Reference Range Interpretation Comments Globulin (test code = 03560-7) 3.8 2.3-3.5 [facility] albumin/globulin mass tnbth7570-57-61 04:55:00* Test Item Value Reference Range Interpretation Comments Albumin/Globulin Ratio (test code = 1759-0) 0.9 0.8-2.0 [facility] or plasma alkaline phosphatase measurement (enzymatic activity/volume)2019-09-12 04:55:00* Test Item Value Reference Range Interpretation Comments Alkaline Phosphatase (test code = 6768-6) 84 40-150 [facility] or plasma lipase measurement (enzymatic activity/volume)2019-09-12 04:55:00* Test Item Value Reference Range Interpretation Comments Lipase (test code = 3040-3) 60 8-78 [facility] CenterFluoroscopic procedure less than one hour mbptigdr8147-70-09 17:36:00* Test Item Value Reference Range Interpretation Comments Coronavirus (PCR) (test code = Coronavirus (PCR)) NOT DETECTED NOTD ETECTED Nala Aptima SARS-CoV-2 assay is a nucleic amplification test intended for the qualitative detection of RNA from SARS-CoV-2 from nasopharyngeal (CHARTER [employer]IVER) specimens. It is used under Emergency Use Authorization (EUA) by FDA.A positive result is indicative of the presence of SARS-CoV-2 RNA. Clinical correlation with patient history and other diagnostic information is necessary to determine patient infe ction status.A negative (Not Detected) result does not preclude SARS-CoV-2 infec tion. Clinical Correlation with patient history and other diagnostic information should be used in patient management decisions.Invalid: Unable to generate a va lid result on this specimen. Please submit a new specimen for reprat testing oc clinically indicated.Tesing performed by:[facility] [address] [place] [address] [id number], Carlos Bryant MD, PhD [facility] CenterCT ABDOMEN/PELVIS ME9087-84-26 15:16:00 [place] [address] Patient Name: DEANDRE PHILIP MR #: [id number] : 1985 Age/Sex: 34/M Req #: [id number] Adm Physician: Ordered by: JEFERSON KELLOGG MD Report #: [id number] Location: ER Room/Bed: Procedure: [id number] CT/CT ABDOMEN/P KELLEY WO Exam Date: 09/10/19 Exam Time: 1513 REPORT STATUS: Signed EXAM: CT Abdomen and Pelvis WITHOUT intravenous contrast INDICATION: Flank pain ALISA RISON: CT abdomen and pelvis of 07/22/2019 TECHNIQUE: Abdomen and pelvis were scanned utilizing a multidetector helical scanner from the lung base to the p ubic symphysis without administration of IV contrast. Coronal and sagittal ref ormations were obtained. IV CONTRAST: None ORAL CONTRAST: Water COMPLICATIONS: None RADIATION DOSE: Total DLP: 736 mGy*cm Dose modulation, iterative reconstruction, and/or weight based adjustment of the mA/kV was utilized to reduce the radiation dose to as low as reasonably achievable. FINDINGS: LOWER THORAX: Normal. HEPATOBILIARY: Diffuse hepatic steatosis. No focal liver lesion. Status post cholecystectomy. SPLEEN: No splenomegaly. PANCREAS: Mild peripancreatic fat stranding, sligh tly more prominent compared to 07/22/2019. No focal mass or ductal dilation. ADRENALS: No adrenal nodules. KIDNEYS/URETERS: No hydronephrosis, stones, or solid mass lesions. PELVIC ORGANS/BLADDER: Unremarkable. PERITONEUM / RE TROPERITONEUM: No free air or fluid. LYMPH NODES: No lymphadenopathy. VESSEL S: Unremarkable. GI TRACT: No bowel wall thickening. No bowel obstruction. Normal appendix. BONES AND SOFT TISSUES: No acute osseous injury. No suspic ious lytic or blastic lesions. IMPRESSION: Mild peripancreatic fat str anding, slightly more prominent compared to 07/22/2019. Findings may represent r esidual changes related to prior pancreatitis seen in June 2019 versus mild rec urrent acute pancreatitis. Diffuse hepatic steatosis. Signed by: Alexandro Tinoco MD on 09/10/2019 3:24 PM Dictated By: BRITNI TINOCO MD Electronica lly Signed By: BRITNI TINOCO MD on 09/10/19 1524 Transcribed By: BHAKTI on 1524 COPY TO: JEFERSON KELLOGG MD Urine color determination 2019-09-10 14:12:00* Test Item Value Reference Range Interpretation Comments Urine Color (test code = 5778-6) YELLOW YELLOW [facility] CenterUrine dvrdhoi8042-03-33 14:12:00* Test Item Value Reference Range Interpretation Comments Urine Clarity (test code = 22619-0) SL CLOUDY CLEAR [facility] gravity of Urine by Test strip 2019-09-10 14:12:00* Test Item Value Reference Range Interpretation Comments Urine Specific [place] (test code = 5811-5) 1.025 1.010-1.02 5 [facility] CenterUrine pH measurement by automated test ofnqa5601-40-67 14:12:00* Test Item Value Reference Range Interpretation Comments Urine pH (test code = 26941-3) 6 5-7 [facility] CenterUrine leukocyte esterase detection by zoyxvpvq9968-30-80 14:12:00* Test Item Value Reference Range Interpretation Comments Urine Leukocyte Esterase (test code = 5799-2) NEGATIVE NEGATIVE [facility] CenterUrine nitrite xcutafvja5362-16-50 14:12:00* Test Item Value Reference Range Interpretation Comments Urine Nitrite (test code = 18249-2) NEGATIVE NEGATIVE [facility] CenterUrine protein measurement by test strip (mass/volume)2019-09-10 14:12:00* Test Item Value Reference Range Interpretation Comments Urine Protein (test code = 5804-0) NEGATIVE NEGATIVE [facility] CenterUrine glucose fsjnbkcae9839-75-43 14:12:00* Test Item Value Reference Range Interpretation Comments Urine Glucose (UA) (test code = 2349-9) 2+ NEGATIVE [facility] CenterUrine ketones detection by automated test aijjr1164-04-94 14:12:00* Test Item Value Reference Range Interpretation Comments Urine Ketones (test code = 92966-3) 1+ NEGATIVE [facility] CenterUrine urobilinogen measurement by test strip (mass/volume)2019-09-10 14:12:00* Test Item Value Reference Range Interpretation Comments Urine Urobilinogen (test code = 27791-1) 0.2 0.2-1 [facility] CenterUrine total bilirubin measurement (mass/volume)2019-09-10 14:12:00* Test Item Value Reference Range Interpretation Comments Urine Bilirubin (test code = 1978-6) SMALL NEGATIVE [facility] CenterUrine erythrocytes dfocyxpds1959-33-27 14:12:00* Test Item Value Reference Range Interpretation Comments Urine Blood (test code = 88904-8) NEGATIVE NEGATIVE [facility] CenterAutomated urine sediment leukocyte count by microscopy (number/high power field)2019-09-10 14:12:00* Test Item Value Reference Range Interpretation Comments Urine WBC (test code = 5821-4) NONE 0-5 [facility] CenterErythrocytes detection in urine sediment by light ofwosgzlnv9159-39-85 14:12:00* Test Item Value Reference Range Interpretation Comments Urine RBC (test code = 12656-1) NONE 0-[address] [facility] CenterBacteria detection in urine sediment by light zfbjezgahw4742-21-94 14:12:00* Test Item Value Reference Range Interpretation Comments Urine Bacteria (test code = 17358-1) RARE NONE [facility] CenterEpithelial cells detection in urine sediment by light dnarqfmkdq4784-57-98 14:12:00* Test Item Value Reference Range Interpretation Comments Urine Epithelial Cells (test code = 61948-4) NONE NONE [facility] CenterMucus detection in urine sediment by light dawcbkdvtw9375-34-70 14:12:00* Test Item Value Reference Range Interpretation Comments Urine Mucus (test code = 8247-9) FEW RARE [facility] plasma amylase measurement (enzymatic activity/volume)2019-09-10 14:12:00* Test Item Value Reference Range Interpretation Comments Amylase Level (test code = 1798-8) 73 25-125 [facility] CenterCapillary blood glucose measurement by glucometer (mass/volume)2019-07-26 15:37:00* Test Item Value Reference Range Interpretation Comments Bedside Glucose (test code = 64157-9) 133 70-120 Meter ID: [id number] Hospital Northeasterum or plasma lipase measurement (enzymatic activity/volume)2019-07-25 05:25:00* Test Item Value Reference Range Interpretation Comments Lipase (test code = 3040-3) 63 8-78 [facility] plasma sodium measurement (moles/volume)2019-07-24 14:58:00* Test Item Value Reference Range Interpretation Comments Sodium Level (test code = 2951-2) 137 136-145 [facility] plasma potassium measurement (moles/volume)2019-07-24 14:58:00* Test Item Value Reference Range Interpretation Comments Potassium Level (test code = 2823-3) 3.5 3.5-5.1 [facility] plasma chloride measurement (moles/volume)2019-07-24 14:58:00* Test Item Value Reference Range Interpretation Comments Chloride Level (test code = 2075-0) 103 98-107 [facility] or plasma carbon dioxide, total measurement (moles/volume)2019-07-24 14:58:00* Test Item Value Reference Range Interpretation Comments Carbon Dioxide Level (test code = 2028-9) 21 22-29 [facility] plasma anion tyt1165-44-06 14:58:00* Test Item Value Reference Range Interpretation Comments Anion Gap (test code = 94039-0) 16.5 8-16 [facility] urea nitrogen measurement (mass/volume)2019-07-24 14:58:00* Test Item Value Reference Range Interpretation Comments Blood Urea Nitrogen (test code = 3094-0) < 5 7-26 [facility] plasma creatinine measurement (mass/volume)2019-07-24 14:58:00* Test Item Value Reference Range Interpretation Comments Creatinine (test code = 2160-0) 0.68 0.72-1.25 [facility] plasma urea nitrogen/creatinine mass oddcy5319-96-40 14:58:00* Test Item Value Reference Range Interpretation Comments BUN/Creatinine Ratio (test code = 3097-3) 7 6-25 [facility] CenterEstimated glomerular filtration rate (GFR) zwxjunrupqrqq5633-79-36 14:58:00* Test Item Value Reference Range Interpretation Comments Estimat Glomerular Filtration Rate (test code = 201748223) > 60 >60 Ranges were taken from the National Kidney Disease Education Program and the [facility] literature.Reference ranges:60 or greater: Fjqjef58-12 ( for 3 consecutive months): Chronic kidney disease 15 or less: Kidney failureG[facility] Medical CenterGlucose qkfuffzomki5436-54-31 14:58:00* Test Item Value Reference Range Interpretation Comments Glucose Level (test code = UGU4343) 114 74-118 [facility] plasma calcium measurement (mass/volume)2019-07-24 14:58:00* Test Item Value Reference Range Interpretation Comments Calcium Level (test code = 97207-9) 9.3 8.4-10.2 [facility] CenterBlood leukocytes automated count (number/volume)2019-07-23 04:35:00* Test Item Value Reference Range Interpretation Comments White Blood Count (test code = 6690-2) 6.81 4.8-10.8 [facility] CenterBlood erythrocytes automated count (number/volume)2019-07-23 04:35:00* Test Item Value Reference Range Interpretation Comments Red Blood Count (test code = 789-8) 4.66 4.3-5.7 [facility] CenterBllakes medical center hemoglobin measurement (moles/volume)2019-07-23 04:35:00* Test Item Value Reference Range Interpretation Comments Hemoglobin (test code = 83457-8) 13.1 14.0-18.0 [facility] CenterAutomated blood hematocrit (volume fraction)2019-07-23 04:35:00* Test Item Value Reference Range Interpretation Comments Hematocrit (test code = 4544-3) 38.1 38.2-49.6 [facility] CenterAutomated erythrocyte mean corpuscular rxmwey0613-09-78 04:35:00* Test Item Value Reference Range Interpretation Comments Mean Corpuscular Volume (test code = 787-2) 81.8 81-99 [facility] CenterAutomated erythrocyte mean corpuscular hemoglobin (mass per erythrocyte)2019-07-23 04:35:00* Test Item Value Reference Range Interpretation Comments Mean Corpuscular Hemoglobin (test code = 785-6) 28.1 28-32 [facility] CenterAutomated erythrocyte mean corpuscular hemoglobin concentration measurement (mass/volume)2019-07-23 04:35:00* Test Item Value Reference Range Interpretation Comments Mean Corpuscular Hemoglobin Concent (test code = 786-4) 34.4 31-35 [facility] CenterRDW NhfQh-Vmj0988-13-08 04:35:00* Test Item Value Reference Range Interpretation Comments Red Cell Distribution Width (test code = 27271-7) 12.8 11.7 -14.4 [facility] CenterAutomated blood platelet count (count/volume)2019-07-23 04:35:00* Test Item Value Reference Range Interpretation Comments Platelet Count (test code = 777-3) 260 140-360 [facility] CenterAutcentral [facility]ol[facility] hospitaled blood segmented neutrophil count as percentage of total iwmfouocmh8643-70-16 04:35:00* Test Item Value Reference Range Interpretation Comments Neutrophils (%) (Auto) (test code = 31663-7) 66.4 38.7-80.0 [facility] CenterAutomated blood lymphocyte count as percentage ot total oezbalheod8378-07-33 04:35:00* Test Item Value Reference Range Interpretation Comments Lymphocytes (%) (Auto) (test code = 736-9) 21.0 18.0-39.1 [facility] CenterAutomated blood monocyte count as percentage of total rwpsmbfqtv4197-29-84 04:35:00* Test Item Value Reference Range Interpretation Comments Monocytes (%) (Auto) (test code = 5905-5) 7.2 4.4-11.3 [facility] CenterAutomated blood eosinophil count as percentage of total hhykkeywfq6847-95-89 04:35:00* Test Item Value Reference Range Interpretation Comments Eosinophils (%) (Auto) (test code = 713-8) 4.4 0.0-6.0 [facility] CenterAutomated blood basophil count as percentage of total ydwtislzsw8567-15-99 04:35:00* Test Item Value Reference Range Interpretation Comments Basophils (%) (Auto) (test code = 706-2) 0.6 0.0-1.0 [facility] CenterFluoroscopic procedure less than one hour cqriituk7698-31-97 04:35:00* Test Item Value Reference Range Interpretation Comments IM GRANULOCYTES % (test code = IM GRANULOCYTES %) 0.4 0.0- 1.0 [facility] CenterAutomated blood neutrophil count 2019-07-23 04:35:00* Test Item Value Reference Range Interpretation Comments Neutrophils # (Auto) (test code = 751-8) 4.5 2.1-6.9 [facility] CenterBlood lymphocytes count (number/volume) 2019-07-23 04:35:00* Test Item Value Reference Range Interpretation Comments Lymphocytes # (Auto) (test code = 80769-4) 1.4 1.0-3.2 [facility] CenterBlood monocytes automated count (number/volume)2019-07-23 04:35:00* Test Item Value Reference Range Interpretation Comments Monocytes # (Auto) (test code = 742-7) 0.5 0.2-0.8 [facility] CenterAutomated blood eosinophil count 2019-07-23 04:35:00* Test Item Value Reference Range Interpretation Comments Eosinophils # (Auto) (test code = 711-2) 0.3 0.0-0.4 [facility] CenterAutomated blood basophil count (count/volume)2019-07-23 04:35:00* Test Item Value Reference Range Interpretation Comments Basophils # (Auto) (test code = 704-7) 0.0 0.0-0.1 [facility] CenterFluoroscopic procedure less than one hour kuvocfzu5291-33-88 04:35:00* Test Item Value Reference Range Interpretation Comments Absolute Immature Granulocyte (auto (laron t code = Absolute Immature Granulocyte (auto) 0.03 0-0.1 [facility] amylase measurement (enzymatic activity/volume)2019-07-23 04:35:00* Test Item Value Reference Range Interpretation Comments Amylase Level (test code = 1798-8) 203 25-125 [facility] triglyceride measurement (mass/volume)2019-07-22 15:02:00* Test Item Value Reference Range Interpretation Comments Triglycerides Level (test code = 2571-8) 2799 0-149 [facility] cholesterol measurement (mass/volume)2019-07-22 15:02:00* Test Item Value Reference Range Interpretation Comments Cholesterol Level (test code = 2093-3) 343 0-199 Less than 200 mg/dL Low Ecil394 - 239 mg/dL Borderline Tnmn067 m g/dl and greater High Risk [facility] cholesterol in HDL measurement (mass/volume) 2019-07-22 15:02:00* Test Item Value Reference Range Interpretation Comments HDL Cholesterol (test code = 2085-9) 25 40-60 [facility] total cholesterol/cholesterol in HDL mass reugt8622-33-48 15:02:00* Test Item Value Reference Range Interpretation Comments Cholesterol/HDL Ratio (test code = 9830-1) 13.7 3.9-4.7 [facility] triglyceride measurement (mass/volume)2019-07-22 15:02:00* Test Item Value Reference Range Interpretation Comments Triglycerides Level (test code = 2571-8) 2799 0-149 [facility] cholesterol measurement (mass/volume)2019-07-22 15:02:00* Test Item Value Reference Range Interpretation Comments Cholesterol Level (test code = 2093-3) 343 0-199 Less than 200 mg/dL Low Pqyh120 - 239 mg/dL Borderline Bwna783 m g/dl and greater High Risk [facility] cholesterol in HDL measurement (mass/volume) 2019-07-22 15:02:00* Test Item Value Reference Range Interpretation Comments HDL Cholesterol (test code = 2085-9) 25 40-60 [facility] total cholesterol/cholesterol in HDL mass oglal7449-59-98 15:02:00* Test Item Value Reference Range Interpretation Comments Cholesterol/HDL Ratio (test code = 9830-1) 13.7 3.9-4.7 [facility] CenterFluoroscopic procedure less than one hour vpbdmike5787-16-80 11:28:00* Test Item Value Reference Range Interpretation [...] complexity tests.Testing performed by [facility] [id number] [place], [place] [phone] Director: Orlando Hope M.D.CLIA # [id number] [facility] [id number] 10:37:00 [place] [address] Patient Name: DEANDRE PHILIP MR #: [id number] : 1985 Age/Sex: 34/M Req #: [id number] [facility] Physician: Ordered by: AV BECKWITH MD Report #: [id number] Location: ER Room/Bed: Procedure: CT/CT ABDOMEN/PEL VIS W Exam Date: 07/22/19 [...] AV BECKWITH MD CHEST SINGLE (PORTABLE)2019-07-22 10:12:00 [place] [address] Patient Name: DEANDRE PHILIP MR #: [id number] : 1985 Age/Sex: 34/M Req #: [id number] Adm Physician: Ordered by: AV BECKWITH MD Report #: [id number] Location: ER Room/Bed: Procedure: [id number] DX/CHEST SINGLE ( PORTABLE) Exam Date: 07/22/19 [...] Kinase (test code = 2157-6) 40 30-200 [facility] creatine kinase MB measurement (mass/volume)2019-07-22 09:38:00* Test Item Value Reference Range Interpretation Comments Creatine Kinase MB (test code = 63724-2) 0.60 0-5.0 [facility] CenterTroponin I measurement by highly sensitive enzyme dmsizjsurcl6111-74-05 09:38:00* Test Item Value Reference Range Interpretation Comments Troponin I (test code = 89876-1) < 0.001 0-0.300 [facility] creatine kinase measurement (enzymatic activity/volume)2019-07-22 09:38:00* Test Item Value Reference Range Interpretation Comments Creatine Kinase (test code = 2157-6) 40 30-200 [facility] creatine kinase MB measurement (mass/volume)2019-07-22 09:38:00* Test Item Value Reference Range Interpretation Comments Creatine Kinase MB (test code = 77169-9) 0.60 0-5.0 [facility] CenterTroponin I measurement by highly sensitive enzyme vqyuspzwmxw5835-50-40 09:38:00* Test Item Value Reference Range Interpretation Comments Troponin I (test code = 93048-2) < 0.001 0-0.300 [facility] CenterFluoroscopic procedure less than one hour sckwievf5817-29-08 09:00:00* Test Item Value Reference Range Interpretation Comments Lactic Acid Level (test code = Lactic Acid Level) 1.7 0.5- 2.0 [facility] CenterFluoroscopic procedure less than one hour pxiqruvg9354-08-25 09:00:00* Test Item Value Reference Range Interpretation Comments Lactic Acid Level (test code = Lactic Acid Level) 1.7 0.5- 2.0 [facility] CenterUrine color gldldmxsbwznp6712-50-46 08:30:00* Test Item Value Reference Range Interpretation Comments Urine Color (test code = 5778-6) YELLOW YELLOW [facility] CenterUrine eemfpge8257-57-23 08:30:00* Test Item Value Reference Range Interpretation Comments Urine Clarity (test code = 46095-2) CLEAR CLEAR [facility] gravity of Urine by Test strip 2019-07-22 08:30:00* Test Item Value Reference Range Interpretation Comments Urine Specific [place] (test code = 5811-5) 1.030 1.010-1.02 5 [facility] CenterUrine pH measurement by automated test xsorm7899-13-36 08:30:00* Test Item Value Reference Range Interpretation Comments Urine pH (test code = 69288-2) 5 5-7 [facility] CenterUrine leukocyte esterase detection by manusaar5136-46-64 08:30:00* Test Item Value Reference Range Interpretation Comments Urine Leukocyte Esterase (test code = 5799-2) NEGATIVE NEGATIVE [facility] CenterUrine nitrite urcdcpvgg3154-95-72 08:30:00* Test Item Value Reference Range Interpretation Comments Urine Nitrite (test code = 10691-3) NEGATIVE NEGATIVE [facility] CenterUrine protein measurement by test strip (mass/volume)2019-07-22 08:30:00* Test Item Value Reference Range Interpretation Comments Urine Protein (test code = 5804-0) NEGATIVE NEGATIVE [facility] CenterUrine glucose ihoxugkcx0705-12-83 08:30:00* Test Item Value Reference Range Interpretation Comments Urine Glucose (UA) (test code = 2349-9) 1+ NEGATIVE [facility] CenterUrine ketones detection by automated test rdkbe1359-68-36 08:30:00* Test Item Value Reference Range Interpretation Comments Urine Ketones (test code = 19974-1) TRACE NEGATIVE [facility] CenterUrine opiates screening wzne7221-29-89 08:30:00* Test Item Value Reference Range Interpretation Comments Urine Opiates Screen (test code = 98110-1) POSITIVE NEGATIVE This test provides only a screen. Positive results should be repeated by a confi rmatory test.[facility] CenterBarbiturates screen, urine 2019-07-22 08:30:00* Test Item Value Reference Range Interpretation Comments Urine Barbiturates Screen (test code = 321206563) NEGATIVE NEGA TIVE [facility] CenterUrine phencyclidine detection by screening yfpzzb8100-75-86 08:30:00* Test Item Value Reference Range Interpretation Comments Urine Phencyclidine Screen (test code = 20222-9) NEGATIVE NEGAT MIGUEL [facility] CenterUrine amphetamines detection by screen method > 1000 ng/nO7718-17-17 08:30:00* Test Item Value Reference Range Interpretation Comments Urine Amphetamines Screen (test code = 10221-6) NEGATIVE NEGATI VE [facility] CenterFluoroscopic procedure less than one hour ylufbohd2603-01-41 08:30:00* Test Item Value Reference Range Interpretation Comments Urine Methamphetamines Screen (test code = Urine Metha mphetamines Screen) NEGATIVE NEGATIVE [facility] CenterUrine benzodiazepines detection by screening yuxlkx0762-80-06 08:30:00* Test Item Value Reference Range Interpretation Comments Urine Benzodiazepines Screen (test code = 12309-7) NEGATIVE NEG ATIVE [facility] CenterUrine cocaine measurement (mass/volume) 2019-07-22 08:30:00* Test Item Value Reference Range Interpretation Comments Urine Cocaine Screen (test code = 3398-5) POSITIVE NEGATIVE This test provides only a screen. Positive results should be repeated by a confi rmatory test.[facility] CenterUrine cannabinoids detection by screening lxlajt3031-94-45 08:30:00* Test Item Value Reference Range Interpretation Comments Urine Cannabinoids Screen (test code = 48397-1) NEGATIVE NEGATI VE THESE RESULTS ARE FOR MEDICAL TREATMENT ONLYTHIS REPORT CONTAINS UNCONFIR MED SCREENING RESULTS*POSITIVE RESULTS WILL BE CONFIRMED BY REFERENCE LAB UPON R EQUEST CUT-OFFDRUG CLASS CONCENTRATION ng/mLAmphetamines 1000Methamphetamines 1000Cocaine 300Opiate 300Phencyc lidine 25Cannabinoid 50Barbiturates 300Benzodiazepine 300Methadone 300[facility]viewUrine methadone dtkzso8234-09-57 08:30:00* Test Item Value Reference Range Interpretation Comments Urine Methadone Screen (test code = 79352-7) NEGATIVE NEGATIVE THESE RESULTS ARE FOR MEDICAL TREATMENT ONLYTHIS REPORT CONTAINS UNCONFIR MED SCREENING RESULTS*POSITIVE RESULTS WILL BE CONFIRMED BY REFERENCE LAB UPON R EQUEST CUT-OFFDRUG CLASS CONCENTRATION ng/mLAmphetamines 1000Methamphetamines 1000Cocaine Metabolite 300Opiate 300Phencyc lidine 25Cannabinoid 50Barbiturates 300Benzodiazepine 300Methadone 300[facility] CenterUrine urobilinogen measurement by test strip (mass/volume)2019-07-22 08:30:00* Test Item Value Reference Range Interpretation Comments Urine Urobilinogen (test code = 51023-6) 0.2 0.2-1 [facility] CenterUrine total bilirubin measurement (mass/volume)2019-07-22 08:30:00* Test Item Value Reference Range Interpretation Comments Urine Bilirubin (test code = 1978-6) NEGATIVE NEGATIVE [facility] CenterUrine erythrocytes nehgcwifu9684-51-95 08:30:00* Test Item Value Reference Range Interpretation Comments Urine Blood (test code = 02606-6) NEGATIVE NEGATIVE [facility] CenterAutomated urine sediment leukocyte count by microscopy (number/high power field)2019-07-22 08:30:00* Test Item Value Reference Range Interpretation Comments Urine WBC (test code = 5821-4) 0-5 0-5 [facility] CenterErythrocytes detection in urine sediment by light ythounzggo1588-71-40 08:30:00* Test Item Value Reference Range Interpretation Comments Urine RBC (test code = 81872-0) 0-5 0-5 [facility] CenterBacteria detection in urine sediment by light zegfqpqukx6587-12-78 08:30:00* Test Item Value Reference Range Interpretation Comments Urine Bacteria (test code = 70993-6) NONE NONE [facility] CenterEpithelial cells detection in urine sediment by light vzzplmnfgh9841-40-18 08:30:00* Test Item Value Reference Range Interpretation Comments Urine Epithelial Cells (test code = 22388-1) NONE NONE [facility] CenterMucus detection in urine sediment by light kcnravzetd2665-81-76 08:30:00* Test Item Value Reference Range Interpretation Comments Urine Mucus (test code = 8247-9) FEW RARE [facility] CenterBlood waaidhi1041-33-06 08:30:00* Test Item Value Reference Range Interpretation Comments Blood Culture (test code = 00018846) NO GROWTH AFTER 72 HOURS [facility] CenterUrine opiates screening nnmb5327-05-22 08:30:00* Test Item Value Reference Range Interpretation Comments Urine Opiates Screen (test code = 56917-2) POSITIVE NEGATIVE This test provides only a screen. Positive results should be repeated by a confi rmatory test.[facility] CenterBarbiturates screen, urine 2019-07-22 08:30:00* Test Item Value Reference Range Interpretation Comments Urine Barbiturates Screen (test code = 299382103) NEGATIVE NEGA TIVE [facility] CenterUrine phencyclidine detection by screening bxotcc4061-24-28 08:30:00* Test Item Value Reference Range Interpretation Comments Urine Phencyclidine Screen (test code = 30440-8) NEGATIVE NEGAT MIGUEL [facility] CenterUrine amphetamines detection by screen method > 1000 ng/rM8452-13-72 08:30:00* Test Item Value Reference Range Interpretation Comments Urine Amphetamines Screen (test code = 32678-6) NEGATIVE NEGATI VE [facility] CenterFluoroscopic procedure less than one hour fgrfyxzg0574-36-19 08:30:00* Test Item Value Reference Range Interpretation Comments Urine Methamphetamines Screen (test code = Urine Metha mphetamines Screen) NEGATIVE NEGATIVE [facility] CenterUrine benzodiazepines detection by screening pjjbkg5928-42-59 08:30:00* Test Item Value Reference Range Interpretation Comments Urine Benzodiazepines Screen (test code = 30785-5) NEGATIVE NEG ATIVE [facility] CenterUrine cocaine measurement (mass/volume) 2019-07-22 08:30:00* Test Item Value Reference Range Interpretation Comments Urine Cocaine Screen (test code = 3398-5) POSITIVE NEGATIVE This test provides only a screen. Positive results should be repeated by a confi rmatory test.[facility] CenterUrine cannabinoids detection by screening jknsiy9077-49-93 08:30:00* Test Item Value Reference Range Interpretation Comments Urine Cannabinoids Screen (test code = 54264-5) NEGATIVE NEGATI VE THESE RESULTS ARE FOR MEDICAL TREATMENT ONLYTHIS REPORT CONTAINS UNCONFIR MED SCREENING RESULTS*POSITIVE RESULTS WILL BE CONFIRMED BY REFERENCE LAB UPON R EQUEST CUT-OFFDRUG CLASS CONCENTRATION ng/mLAmphetamines 1000Methamphetamines 1000Cocaine 300Opiate 300Phencyc lidine 25Cannabinoid 50Barbiturates 300Benzodiazepine 300Methadone 300[facility] CenterUrine methadone agkxpc8709-56-08 08:30:00* Test Item Value Reference Range Interpretation Comments Urine Methadone Screen (test code = 29113-8) NEGATIVE NEGATIVE THESE RESULTS ARE FOR MEDICAL TREATMENT ONLYTHIS REPORT CONTAINS UNCONFIR MED SCREENING RESULTS*POSITIVE RESULTS WILL BE CONFIRMED BY REFERENCE LAB UPON R EQUEST CUT-OFFDRUG CLASS CONCENTRATION ng/mLAmphetamines 1000Methamphetamines 1000Cocaine Metabolite 300Opiate 300Phencyc lidine 25Cannabinoid 50Barbiturates 300Benzodiazepine 300Methadone 300[facility] CenterBlood wwlaowz8506-48-29 08:30:00* Test Item Value Reference Range Interpretation Comments Blood Culture (test code = 70393445) NO GROWTH AFTER 5 DAYS, FINAL REPORT [facility] acetaminophen measurement by screening method (mass/volume)2019-07-22 08:20:00* Test Item Value Reference Range Interpretation Comments Acetaminophen Level (test code = 10005-9) 4.2 10-30 [facility] ethanol measurement (mass/volume)2019-07-22 08:20:00* Test Item Value Reference Range Interpretation Comments Ethyl Alcohol Level (test code = 5643-2) < 10.0 0.0-10.0 [facility] plasma salicylates measurement (mass/volume)2019-07-22 08:20:00* Test Item Value Reference Range Interpretation Comments Salicylates Level (test code = 4024-6) < 5.0 0-30 [facility] plasma acetaminophen measurement by screening method (mass/volume)2019-07-22 08:20:00* Test Item Value Reference Range Interpretation Comments Acetaminophen Level (test code = 71864-8) 4.2 10-30 [facility] ethanol measurement (mass/volume)2019-07-22 08:20:00* Test Item Value Reference Range Interpretation Comments Ethyl Alcohol Level (test code = 5643-2) < 10.0 0.0-10.0 [facility] plasma salicylates measurement (mass/volume)2019-07-22 08:20:00* Test Item Value Reference Range Interpretation Comments Salicylates Level (test code = 4024-6) < 5.0 0-30 [facility] total bilirubin measurement (mass/volume)2019-07-22 07:30:00* Test Item Value Reference Range Interpretation Comments Total Bilirubin (test code = 1975-2) 0.4 0.2-1.2 [facility] CenterFluoroscopic procedure less than one hour nzvkyfwn1042-55-99 07:30:00* Test Item Value Reference Range Interpretation Comments Aspartate Amino Transf (AST/SGOT) (test code = Aspartate Amino Transf (AST/SGOT)) 7 5-34 [facility] alanine aminotransferase measurement (enzymatic activity/volume)2019-07-22 07:30:00* Test Item Value Reference Range Interpretation Comments Alanine Aminotransferase (ALT/SGPT) (test code = 1742-6) 12 0-55 [facility] protein measurement (mass/volume)2019-07-22 07:30:00* Test Item Value Reference Range Interpretation Comments Total Protein (test code = 2885-2) 9.7 6.5-8.1 [facility] albumin measurement (mass/volume)2019-07-22 07:30:00* Test Item Value Reference Range Interpretation Comments Albumin (test code = 1751-7) 4.0 3.5-5.0 [facility] CenterPlasma globulin measurement (mass/volume) 2019-07-22 07:30:00* Test Item Value Reference Range Interpretation Comments Globulin (test code = 80439-2) 5.7 2.3-3.5 [facility] albumin/globulin mass cehho5919-89-43 07:30:00* Test Item Value Reference Range Interpretation Comments Albumin/Globulin Ratio (test code = 1759-0) 0.7 0.8-2.0 [facility] alkaline phosphatase measurement (enzymatic activity/volume)2019-07-22 07:30:00* Test Item Value Reference Range Interpretation Comments Alkaline Phosphatase (test code = 6768-6) 112 40-150 [facility] sodium measurement (moles/volume)2019-07-08 14:34:00* Test Item Value Reference Range Interpretation Comments Sodium Level (test code = 2951-2) 138 136-145 [facility] potassium measurement (moles/volume)2019-07-08 14:34:00* Test Item Value Reference Range Interpretation Comments Potassium Level (test code = 2823-3) 4.4 3.5-5.1 [facility] chloride measurement (moles/volume)2019-07-08 14:34:00* Test Item Value Reference Range Interpretation Comments Chloride Level (test code = 2075-0) 100 98-107 [facility] carbon dioxide, total measurement (moles/volume)2019-07-08 14:34:00* Test Item Value Reference Range Interpretation Comments Carbon Dioxide Level (test code = 2028-9) 29 22-29 [facility] anion tdk1574-63-61 14:34:00* Test Item Value Reference Range Interpretation Comments Anion Gap (test code = 28884-0) 13.4 8-16 [facility] urea nitrogen measurement (mass/volume)2019-07-08 14:34:00* Test Item Value Reference Range Interpretation Comments Blood Urea Nitrogen (test code = 3094-0) 7 7-26 [facility] creatinine measurement (mass/volume)2019-07-08 14:34:00* Test Item Value Reference Range Interpretation Comments Creatinine (test code = 2160-0) 0.77 0.72-1.25 [facility] urea nitrogen/creatinine mass ezvhj0151-98-09 14:34:00* Test Item Value Reference Range Interpretation Comments BUN/Creatinine Ratio (test code = 3097-3) 9 6-25 [facility] CenterEstimated glomerular filtration rate (GFR) ypweviegpxfhs1763-86-65 14:34:00* Test Item Value Reference Range Interpretation Comments Estimat Glomerular Filtration Rate (test code = 778557185) > 60 >60 Ranges were taken from the National Kidney Disease Education Program and the [facility] Foundation literature.Reference ranges:60 or greater: Zmfubm39-16 ( for 3 consecutive months): Chronic kidney disease 15 or less: Kidney failureGraham Regional Medical CenterGlucose qdqtgcvxmgu6499-20-99 14:34:00* Test Item Value Reference Range Interpretation Comments Glucose Level (test code = FOC0549) 256 74-118 [facility] calcium measurement (mass/volume)2019-07-08 14:34:00* Test Item Value Reference Range Interpretation Comments Calcium Level (test code = 36900-0) 10.1 8.4-10.2 [facility] CenterCapillary blood glucose measurement by glucometer (mass/volume)2019-07-08 07:49:00* Test Item Value Reference Range Interpretation Comments Bedside Glucose (test code = 11662-3) 134 70-120 Meter ID: [id number] venture between [facility] and [facility] ResourcesBlood leukocytes automated count (number/volume)2019-07-07 05:30:00* Test Item Value Reference Range Interpretation Comments White Blood Count (test code = 6690-2) 4.71 4.8-10.8 [facility] CenterBlood erythrocytes automated count (number/volume)2019-07-07 05:30:00* Test Item Value Reference Range Interpretation Comments Red Blood Count (test code = 789-8) 4.86 4.3-5.7 [facility] CenterBlood hemoglobin measurement (moles/volume)2019-07-07 05:30:00* Test Item Value Reference Range Interpretation Comments Hemoglobin (test code = 58117-0) 13.5 14.0-18.0 [facility] CenterAutomated blood hematocrit (volume fraction)2019-07-07 05:30:00* Test Item Value Reference Range Interpretation Comments Hematocrit (test code = 4544-3) 41.9 38.2-49.6 [facility] CenterAutomated erythrocyte mean corpuscular reqytg4808-44-01 05:30:00* Test Item Value Reference Range Interpretation Comments Mean Corpuscular Volume (test code = 787-2) 86.2 81-99 [facility] CenterAutomated erythrocyte mean corpuscular hemoglobin (mass per erythrocyte)2019-07-07 05:30:00* Test Item Value Reference Range Interpretation Comments Mean Corpuscular Hemoglobin (test code = 785-6) 27.8 28-32 [facility] CenterAutomated erythrocyte mean corpuscular hemoglobin concentration measurement (mass/volume)2019-07-07 05:30:00* Test Item Value Reference Range Interpretation Comments Mean Corpuscular Hemoglobin Concent (test code = 786-4) 32.2 31-35 [facility] CenterRDW MnbEg-Cpc5221-28-23 05:30:00* Test Item Value Reference Range Interpretation Comments Red Cell Distribution Width (test code = 83071-6) 13.2 11.7 -14.4 [facility] CenterAutomated blood platelet count (count/volume)2019-07-07 05:30:00* Test Item Value Reference Range Interpretation Comments Platelet Count (test code = 777-3) 248 140-360 [facility] CenterAutcentral carolina hospitaled blood segmented neutrophil count as percentage of total aqzwzflctz3485-28-36 05:30:00* Test Item Value Reference Range Interpretation Comments Neutrophils (%) (Auto) (test code = 90919-1) 48.9 38.7-80.0 [facility] CenterAutomated blood lymphocyte count as percentage ot total kcpnosryxj6025-68-09 05:30:00* Test Item Value Reference Range Interpretation Comments Lymphocytes (%) (Auto) (test code = 736-9) 32.9 18.0-39.1 [facility] CenterAutomated blood monocyte count as percentage of total huocysswjf1648-83-68 05:30:00* Test Item Value Reference Range Interpretation Comments Monocytes (%) (Auto) (test code = 5905-5) 9.3 4.4-11.3 [facility] CenterAutomated blood eosinophil count as percentage of total nzuuurgtnu0903-16-94 05:30:00* Test Item Value Reference Range Interpretation Comments Eosinophils (%) (Auto) (test code = 713-8) 7.9 0.0-6.0 [facility] CenterAutomated blood basophil count as percentage of total hgihvqtiof7502-96-57 05:30:00* Test Item Value Reference Range Interpretation Comments Basophils (%) (Auto) (test code = 706-2) 0.6 0.0-1.0 [facility] CenterFluoroscopic procedure less than one hour axnvlcir7899-91-55 05:30:00* Test Item Value Reference Range Interpretation Comments IM GRANULOCYTES % (test code = IM GRANULOCYTES %) 0.4 0.0- 1.0 [facility] CenterAutomated blood neutrophil count 2019-07-07 05:30:00* Test Item Value Reference Range Interpretation Comments Neutrophils # (Auto) (test code = 751-8) 2.3 2.1-6.9 [facility] CenterBlood lymphocytes count (number/volume) 2019-07-07 05:30:00* Test Item Value Reference Range Interpretation Comments Lymphocytes # (Auto) (test code = 59829-5) 1.6 1.0-3.2 [facility] CenterBlood monocytes automated count (number/volume)2019-07-07 05:30:00* Test Item Value Reference Range Interpretation Comments Monocytes # (Auto) (test code = 742-7) 0.4 0.2-0.8 [facility] 2019-07-07 05:30:00* Test Item Value Reference Range Interpretation Comments Eosinophils # (Auto) (test code = 711-2) 0.4 0.0-0.4 [facility] CenterAutomated blood basophil count (count/volume)2019-07-07 05:30:00* Test Item Value Reference Range Interpretation Comments Basophils # (Auto) (test code = 704-7) 0.0 0.0-0.1 [facility] CenterFluoroscopic procedure less than one hour dgljgzkw8340-50-74 05:30:00* Test Item Value Reference Range Interpretation Comments Absolute Immature Granulocyte (auto (laron t code = Absolute Immature Granulocyte (auto) 0.02 0-0.1 [facility] lipase measurement (enzymatic activity/volume)2019-07-07 05:30:00* Test Item Value Reference Range Interpretation Comments Lipase (test code = 3040-3) 65 8-78 [facility] CenterFluoroscopic procedure less than one hour gzsjkwzo0790-12-98 05:20:00* Test Item Value Reference Range Interpretation Comments Hemoglobin A1c Percent (test code = Hemoglobin A1c Percent) 10.7 4.0-7.0 [facility] total bilirubin measurement (mass/volume)2019-07-05 05:20:00* Test Item Value Reference Range Interpretation Comments Total Bilirubin (test code = 1975-2) 0.7 0.2-1.2 [facility] CenterFluoroscopic procedure less than one hour qmdtqtkr9685-71-57 05:20:00* Test Item Value Reference Range Interpretation Comments Aspartate Amino Transf (AST/SGOT) (test code = Aspartate Amino Transf (AST/SGOT)) 29 5-34 [facility] or plasma alanine aminotransferase measurement (enzymatic activity/volume)2019-07-05 05:20:00* Test Item Value Reference Range Interpretation Comments Alanine Aminotransferase (ALT/SGPT) (test code = 1742-6) 36 0-55 [facility] plasma protein measurement (mass/volume)2019-07-05 05:20:00* Test Item Value Reference Range Interpretation Comments Total Protein (test code = 2885-2) 6.3 6.5-8.1 [facility] albumin measurement (mass/volume)2019-07-05 05:20:00* Test Item Value Reference Range Interpretation Comments Albumin (test code = 1751-7) 3.2 3.5-5.0 [facility] CenterPlasma globulin measurement (mass/volume) 2019-07-05 05:20:00* Test Item Value Reference Range Interpretation Comments Globulin (test code = 04318-3) 3.1 2.3-3.5 [facility] plasma albumin/globulin mass bvion5594-28-89 05:20:00* Test Item Value Reference Range Interpretation Comments Albumin/Globulin Ratio (test code = 1759-0) 1.0 0.8-2.0 [facility] plasma alkaline phosphatase measurement (enzymatic activity/volume)2019-07-05 05:20:00* Test Item Value Reference Range Interpretation Comments Alkaline Phosphatase (test code = 6768-6) 104 40-150 [facility] or plasma thyrotropin measurement by detection limit <= 0.005 miu/l (units/volume)2019-07-05 05:20:00* Test Item Value Reference Range Interpretation Comments Thyroid Stimulating Hormone (TSH) (test code = 07294-2) 2.097 0.350-4.940 [facility] CenterFluoroscopic procedure less than one hour bsvoeimv2385-41-52 05:20:00* Test Item Value Reference Range Interpretation Comments Hemoglobin A1c Percent (test code = Hemoglobin A1c Percent) 10.7 4.0-7.0 [facility] plasma thyrotropin measurement by detection limit <= 0.005 miu/l (units/volume)2019-07-05 05:20:00* Test Item Value Reference Range Interpretation Comments Thyroid Stimulating Hormone (TSH) (test code = 38608-3) 2.097 0.350-4.940 [facility] CenterFluoroscopic procedure less than one hour feypnrac5215-43-02 05:20:00* Test Item Value Reference Range Interpretation Comments Hemoglobin A1c Percent (test code = Hemoglobin A1c Percent) 10.7 4.0-7.0 [facility] plasma thyrotropin measurement by detection limit <= 0.005 miu/l (units/volume)2019-07-05 05:20:00* Test Item Value Reference Range Interpretation Comments Thyroid Stimulating Hormone (TSH) (test code = 16929-3) 2.097 0.350-4.940 [facility] CenterFluoroscopic procedure less than one hour jexgeszy3264-64-13 18:03:00* Test Item Value Reference Range Interpretation [...] complexity tests.Testing performed by Clinical Pathology Labor [address] [place] [address] [phone] Director: Orlando Hope M.D.CLIA # [id number] [facility]viewUrine color fnovvfejgydjx4857-09-17 16:11:00* Test Item Value Reference Range Interpretation Comments Urine Color (test code = 5778-6) YELLOW YELLOW [facility] CenterUrine gjwlupd0379-59-33 16:11:00* Test Item Value Reference Range Interpretation Comments Urine Clarity (test code = 53122-0) SL CLOUDY CLEAR [facility]pecific gravity of Urine by Test strip 2019-07-04 16:11:00* Test Item Value Reference Range Interpretation Comments Urine Specific [place] (test code = 5811-5) 1.020 1.010-1.02 5 [facility] CenterUrine pH measurement by automated test nwkhv5770-23-03 16:11:00* Test Item Value Reference Range Interpretation Comments Urine pH (test code = 53956-1) 5 5-7 [facility] CenterUrine leukocyte esterase detection by otofhrvi9595-35-57 16:11:00* Test Item Value Reference Range Interpretation Comments Urine Leukocyte Esterase (test code = 5799-2) NEGATIVE NEGATIVE [facility] CenterUrine nitrite encfwndcc7333-74-98 16:11:00* Test Item Value Reference Range Interpretation Comments Urine Nitrite (test code = 46288-1) NEGATIVE NEGATIVE [facility] CenterUrine protein measurement by test strip (mass/volume)2019-07-04 16:11:00* Test Item Value Reference Range Interpretation Comments Urine Protein (test code = 5804-0) 1+ NEGATIVE [facility] CenterUrine glucose nljymavnv3557-68-63 16:11:00* Test Item Value Reference Range Interpretation Comments Urine Glucose (UA) (test code = 2349-9) 2+ NEGATIVE [facility] CenterUrine ketones detection by automated test retrk3968-95-48 16:11:00* Test Item Value Reference Range Interpretation Comments Urine Ketones (test code = 36471-3) 2+ NEGATIVE [facility] CenterUrine opiates screening susj2828-94-78 16:11:00* Test Item Value Reference Range Interpretation Comments Urine Opiates Screen (test code = 33595-9) POSITIVE NEGATIVE ALL TESTS PERFORMED MANUALLY ON [employer] TOX/SEE TEST This test provides only a sc reen. Positive results should be repeated by a confirmatory test.[facility] CenterBarbiturates screen, vzbjv4098-78-15 16:11:00* Test Item Value Reference Range Interpretation Comments Urine Barbiturates Screen (test code = 818155611) NEGATIVE NEGA TIVE [facility] CenterUrine phencyclidine detection by screening srsvoj1259-64-17 16:11:00* Test Item Value Reference Range Interpretation Comments Urine Phencyclidine Screen (test code = 56329-2) NEGATIVE NEGAT MIGUEL [facility] CenterUrine amphetamines detection by screen method > 1000 ng/wE7475-12-74 16:11:00* Test Item Value Reference Range Interpretation Comments Urine Amphetamines Screen (test code = 11744-3) NEGATIVE NEGATI VE [facility] CenterFluoroscopic procedure less than one hour eenmavwi3837-98-24 16:11:00* Test Item Value Reference Range Interpretation Comments Urine Methamphetamines Screen (test code = Urine Metha mphetamines Screen) NEGATIVE NEGATIVE [facility] CenterUrine benzodiazepines detection by screening enhgve2107-03-61 16:11:00* Test Item Value Reference Range Interpretation Comments Urine Benzodiazepines Screen (test code = 79090-3) NEGATIVE NEG ATIVE [facility] CenterUrine cocaine measurement (mass/volume) 2019-07-04 16:11:00* Test Item Value Reference Range Interpretation Comments Urine Cocaine Screen (test code = 3398-5) NEGATIVE NEGATIVE [facility] CenterUrine cannabinoids detection by screening bcidxr4508-28-56 16:11:00* Test Item Value Reference Range Interpretation Comments Urine Cannabinoids Screen (test code = 92303-7) NEGATIVE NEGATI VE THESE RESULTS ARE FOR MEDICAL TREATMENT ONLYTHIS REPORT CONTAINS UNCONFIR MED SCREENING RESULTS*POSITIVE RESULTS WILL BE CONFIRMED BY REFERENCE LAB UPON R EQUEST CUT-OFFDRUG CLASS CONCENTRATION ng/mLAmphetamines 1000Methamphetamines 1000Cocaine 300Opiate 300Phencyc lidine 25Cannabinoid 50Barbiturates 300Benzodiazepine 300Methadone 300[facility]viewUrine methadone pqghes9925-92-85 16:11:00* Test Item Value Reference Range Interpretation Comments Urine Methadone Screen (test code = 09145-0) NEGATIVE NEGATIVE THESE RESULTS ARE FOR MEDICAL TREATMENT ONLYTHIS REPORT CONTAINS UNCONFIR MED SCREENING RESULTS*POSITIVE RESULTS WILL BE CONFIRMED BY REFERENCE LAB UPON R EQUEST CUT-OFFDRUG CLASS CONCENTRATION ng/mLAmphetamines 1000Methamphetamines 1000Cocaine Metabolite 300Opiate 300Phencyc lidine 25Cannabinoid 50Barbiturates 300Benzodiazepine 300Methadone 300[facility]viewUrine urobilinogen measurement by test strip (mass/volume)2019-07-04 16:11:00* Test Item Value Reference Range Interpretation Comments Urine Urobilinogen (test code = 29250-0) 0.2 0.2-1 [facility] CenterUrine total bilirubin measurement (mass/volume)2019-07-04 16:11:00* Test Item Value Reference Range Interpretation Comments Urine Bilirubin (test code = 1978-6) SMALL NEGATIVE [facility] CenterUrine erythrocytes ubrtnymbu7336-85-06 16:11:00* Test Item Value Reference Range Interpretation Comments Urine Blood (test code = 77149-3) NEGATIVE NEGATIVE [facility] CenterAutomated urine sediment leukocyte count by microscopy (number/high power field)2019-07-04 16:11:00* Test Item Value Reference Range Interpretation Comments Urine WBC (test code = 5821-4) NONE 0-5 [facility] CenterErythrocytes detection in urine sediment by light sfzlvcggge8566-81-51 16:11:00* Test Item Value Reference Range Interpretation Comments Urine RBC (test code = 44270-6) 0-5 0-5 [facility] CenterBacteria detection in urine sediment by light tjqqeivbgo8291-71-86 16:11:00* Test Item Value Reference Range Interpretation Comments Urine Bacteria (test code = 72412-3) FEW NONE [facility] CenterEpithelial cells detection in urine sediment by light rqkoohyjxw6749-77-84 16:11:00* Test Item Value Reference Range Interpretation Comments Urine Epithelial Cells (test code = 55971-6) NONE NONE [facility] CenterCT ABDOMEN/PELVIS V3373-97-94 14:50:00 [facility] [address] [address] Patient Name: DEANDRE PHILIP MR #: [id number] : 1985 Age/Sex: 34/M Req #: [id number] Adm Physician: Ordered by: AV BECKWITH MD Report #: [id number] Location: ER Room/Bed: Procedure: [id number] CT/CT ABDOMEN/PEL VIS W Exam Date: 07/04/19 [...] TO: AV BECKWITH MD Arterial blood pH ulcnzjifldz8314-22-34 13:43:00* Test Item Value Reference Range Interpretation Comments Arterial Blood pH (test code = 2744-1) 7.35 7.35-7.45 [facility] CenterpCO2 IuuA3226-68-17 13:43:00* Test Item Value Reference Range Interpretation Comments Arterial Blood Partial Pressure CO2 (test code = 2019-8) 40 35-45 [facility] CenterArterial blood bicarbonate measurement (moles/volume)2019-07-04 13:43:00* Test Item Value Reference Range Interpretation Comments Arterial Blood HCO3 (test code = 1959-4) 22 22-26 [facility] CenterArterial blood base excess by calculation 2019-07-04 13:43:00* Test Item Value Reference Range Interpretation Comments Arterial Blood Base Excess (test code = 1925-7) -3.0 -2-3 [facility] CenterFluoroscopic procedure less than one hour xabybgzb9147-07-35 13:43:00* Test Item Value Reference Range Interpretation Comments FiO2 (test code = FiO2) 21 [facility] CenterArterial blood pH qfwxtaxzxaj8595-27-39 13:43:00* Test Item Value Reference Range Interpretation Comments Arterial Blood pH (test code = 2744-1) 7.35 7.35-7.45 [facility] CenterpCO2 PacY3298-68-74 13:43:00* Test Item Value Reference Range Interpretation Comments Arterial Blood Partial Pressure CO2 (test code = 2019-8) 40 35-45 [facility] CenterArterial blood bicarbonate measurement (moles/volume)2019-07-04 13:43:00* Test Item Value Reference Range Interpretation Comments Arterial Blood HCO3 (test code = 1960-4) [facility] CenterArterial blood base excess by calculation 2019-07-04 13:43:00* Test Item Value Reference Range Interpretation Comments Arterial Blood Base Excess (test code = 1925-7) -3.0 -2-3 [facility] CenterFluoroscopic procedure less than one hour zkgsppgl1008-21-41 13:43:00* Test Item Value Reference Range Interpretation Comments FiO2 (test code = FiO2) 21 [facility] CenterArterial blood pH evudogghxif0428-70-95 13:43:00* Test Item Value Reference Range Interpretation Comments Arterial Blood pH (test code = 2744-1) 7.35 7.35-7.45 [facility] CenterpCO2 JnkI5436-11-37 13:43:00* Test Item Value Reference Range Interpretation Comments Arterial Blood Partial Pressure CO2 (test code = 2019-8) 40 35-45 [facility] CenterArterial blood bicarbonate measurement (moles/volume)2019-07-04 13:43:00* Test Item Value Reference Range Interpretation Comments Arterial Blood HCO3 (test code = 1960-4) [facility] CenterArterial blood base excess by calculation 2019-07-04 13:43:00* Test Item Value Reference Range Interpretation Comments Arterial Blood Base Excess (test code = 1925-7) -3.0 -2-3 [facility] CenterFluoroscopic procedure less than one hour dvstvgej2505-50-15 13:43:00* Test Item Value Reference Range Interpretation Comments FiO2 (test code = FiO2) 21 [facility] CenterCHEST SINGLE (PORTABLE)2019-07-04 13:06:00 [facility] [address] [address] Patient Name: DEANDRE PHILIP MR #: [id number] : 1985 Age/Sex: 34/M Req #: [id number] Adm Physician: Ordered by: AV BECKWITH MD Report #: [id number] Location: ER Room/Bed: Procedure: [id number] DX/CHEST SINGLE ( PORTABLE) Exam Date: 07/04/19 [...] (PT) in platelet poor plasma by coagulation wdsnm1858-67-54 11:32:00* Test Item Value Reference Range Interpretation Comments Prothrombin Time (test code = 5902-2) 12.5 11.9-14.5 [facility] CenterINR in Platelet poor plasma by Coagulation vfrgx2014-84-52 11:32:00* Test Item Value Reference Range Interpretation Comments Prothromb Time International Ratio (test code = 6301-6) 0.88 Oral Anticoagulant Therapy INR Values:1. Low Intensity Therapy 1.5 - 2.02 . Moderate Intensity Therapy 2.0 - 3.03. High Intensity Therapy(1) 2.5 - 3. 54. High Intensity Therapy(2) 3.0 - 4.05. Panic Value INR > 5.0 [facility] CenterActivated partial thromboplastin time (aPTT) in platelet poor plasma by coagulation crmiy0066-03-08 11:32:00* Test Item Value Reference Range Interpretation Comments Activated Partial Thromboplast Time (test code = 79137-0) 26.8 23.8-35.5 [facility] CenterFluoroscopic procedure less than one hour ifpkggcg1354-53-78 11:32:00* Test Item Value Reference Range Interpretation Comments Lactic Acid Level (test code = Lactic Acid Level) 1.0 0.5- 2.0 [facility] plasma magnesium measurement (mass/volume)2019-07-04 11:32:00* Test Item Value Reference Range Interpretation Comments Magnesium Level (test code = 75300-5) 1.6 1.3-2.1 [facility] plasma triglyceride measurement (mass/volume)2019-07-04 11:32:00* Test Item Value Reference Range Interpretation Comments Triglycerides Level (test code = 2571-8) 1948 0-149 [facility] or plasma cholesterol measurement (mass/volume)2019-07-04 11:32:00* Test Item Value Reference Range Interpretation Comments Cholesterol Level (test code = 2093-3) 395 0-199 Less than 200 mg/dL Low Mnmo321 - 239 mg/dL Borderline Aptn933 m g/dl and greater High Risk [facility] or plasma cholesterol in HDL measurement (mass/volume) 2019-07-04 11:32:00* Test Item Value Reference Range Interpretation Comments HDL Cholesterol (test code = 2085-9) 25 40-60 [facility] or plasma total cholesterol/cholesterol in HDL mass gugpz0860-61-11 11:32:00* Test Item Value Reference Range Interpretation Comments Cholesterol/HDL Ratio (test code = 9830-1) 15.8 3.9-4.7 [facility] or plasma creatine kinase measurement (enzymatic activity/volume)2019-07-04 11:32:00* Test Item Value Reference Range Interpretation Comments Creatine Kinase (test code = 2157-6) 40 30-200 [facility] or plasma creatine kinase MB measurement (mass/volume)2019-07-04 11:32:00* Test Item Value Reference Range Interpretation Comments Creatine Kinase MB (test code = 74556-0) 0.60 0-5.0 [facility] CenterTroponin I measurement by highly sensitive enzyme odyfrpopfwa2246-11-36 11:32:00* Test Item Value Reference Range Interpretation Comments Troponin I (test code = 49557-7) < 0.001 0-0.300 [facility] CenterBlood otwjqey2453-78-79 11:32:00* Test Item Value Reference Range Interpretation Comments Blood Culture (test code = 31661102) NO GROWTH AFTER 72 HOURS [facility] CenterProthrombin time (PT) in platelet poor plasma by coagulation lwphf0650-12-51 11:32:00* Test Item Value Reference Range Interpretation Comments Prothrombin Time (test code = 5902-2) 12.5 11.9-14.5 [facility] CenterINR in Platelet poor plasma by Coagulation hkozn1669-37-24 11:32:00* Test Item Value Reference Range Interpretation Comments Prothromb Time International Ratio (test code = 6301-6) 0.88 Oral Anticoagulant Therapy INR Values:1. Low Intensity Therapy 1.5 - 2.02 . Moderate Intensity Therapy 2.0 - 3.03. High Intensity Therapy(1) 2.5 - 3. 54. High Intensity Therapy(2) 3.0 - 4.05. Panic Value INR > 5.0 [facility] CenterActivated partial thromboplastin time (aPTT) in platelet poor plasma by coagulation hhoab5902-16-00 11:32:00* Test Item Value Reference Range Interpretation Comments Activated Partial Thromboplast Time (test code = 79157-8) 26.8 23.8-35.5 [facility] or plasma magnesium measurement (mass/volume)2019-07-04 11:32:00* Test Item Value Reference Range Interpretation Comments Magnesium Level (test code = 76918-1) 1.6 1.3-2.1 [facility] CenterProthrombin time (PT) in platelet poor plasma by coagulation rnrpr1300-51-12 11:32:00* Test Item Value Reference Range Interpretation Comments Prothrombin Time (test code = 5902-2) 12.5 11.9-14.5 [facility] CenterINR in Platelet poor plasma by Coagulation uqbda5913-14-49 11:32:00* Test Item Value Reference Range Interpretation Comments Prothromb Time International Ratio (test code = 6301-6) 0.88 Oral Anticoagulant Therapy INR Values:1. Low Intensity Therapy 1.5 - 2.02 . Moderate Intensity Therapy 2.0 - 3.03. High Intensity Therapy(1) 2.5 - 3. 54. High Intensity Therapy(2) 3.0 - 4.05. Panic Value INR > 5.0 [facility] CenterActivated partial thromboplastin time (aPTT) in platelet poor plasma by coagulation whzzp6514-95-36 11:32:00* Test Item Value Reference Range Interpretation Comments Activated Partial Thromboplast Time (test code = 34093-8) 26.8 23.8-35.5 [facility] or plasma magnesium measurement (mass/volume)2019-07-04 11:32:00* Test Item Value Reference Range Interpretation Comments Magnesium Level (test code = 44121-9) 1.6 1.3-2.1 [facility] CenterGLUBED2020-05-01 12:00:00* Test Item Value Reference Range Interpretation Comments GLUBED (test code = GLUBED) 223 mg/dL 74-106 H [facility] LDIEMG2089-88-31 06:14:00* Test Item Value Reference Range Interpretation Comments GLUBED (test code = GLUBED) 125 mg/dL 74-106 H Performed by certified body press operator at [facility] CBC W/AUTO EGHU7083-27-82 02:52:00* Test Item Value Reference Range Interpretation [...] (test code = MDIFF) NO COMPREHENSIVE METABOLIC BQGWB8312-41-96 02:25:00* Test Item Value Reference Range Interpretation [...] reference range due to change in reagent. RJGVRX8068-54-49 02:25:00* Test Item Value Reference Range Interpretation Comments LIPASE (test code = LIP) 546 U/L 73.0-393.0 H RUMRJPNNA5817-44-58 02:25:00* Test Item Value Reference Range Interpretation Comments MAGNESIUM (test code = MAG) 2.0 mg/dL 1.8-2.4 N [id number] 00:08:00* Test Item Value Reference Range Interpretation Comments GLUBED (test code = GLUBED) 159 mg/dL 74-106 H Performed by certified body press operator at [facility] XCDXZI2331-64-71 17:53:00* Test Item Value Reference Range Interpretation Comments GLUBED (test code = GLUBED) 139 mg/dL 74-106 H Performed by certified body press operator at [facility] KTOMSI3823-81-78 11:57:00* Test Item Value Reference Range Interpretation Comments GLUBED (test code = GLUBED) 160 mg/dL 74-106 H Performed [facility] certified [facility] press operator [facility] ACUTE HEPATITIS PJVLQ4601-98-07 08:09:00* Test Item Value Reference Range Interpretation [...] with a HCV Nucleic Acid Amplification test (727083).Performed At: [facility] [id number] Jadon Carvalho MD Ph:[phone] OQCJCB5270-80-74 08:07:00* Test Item Value Reference Range Interpretation Comments GLUBED (test code = GLUBED) 166 mg/dL 74-106 H [facility] certified [facility] press [facility] CIEXCX7020-32-35 05:39:00* Test Item Value Reference Range Interpretation Comments GLUBED (test code = GLUBED) 152 mg/dL 74-106 H Per[facility] certified [facility] press [facility] COMPREHENSIVE METABOLIC ARZSY2928-45-28 03:05:00* Test Item Value Reference Range Interpretation [...] reference range due to change in reagent. [id number] 03:05:00* Test Item Value Reference Range Interpretation Comments LIPASE (test code = LIP) 1815 U/L 73.0-393.0 H [id number] 03:05:00* Test Item Value Reference Range Interpretation Comments MAGNESIUM (test code = MAG) 1.9 mg/dL 1.8-2.4 N CBC W/AUTO TEKX2338-88-08 02:42:00* Test Item Value Reference Range Interpretation [...] DIFF REQUIRED (test code = MDIFF) NO [id number] 00:19:00* Test Item Value Reference Range Interpretation Comments GLUBED (test code = GLUBED) 197 mg/dL 74-106 H [facility] YSJSUD2422-89-31 20:25:00* Test Item Value Reference Range Interpretation Comments GLUBED (test code = GLUBED) 214 mg/dL 74-106 H Performed by certified [facility] press operator [facility] [id number] 18:18:00* Test Item Value Reference Range Interpretation Comments GLUBED (test code = GLUBED) 234 mg/dL 74-106 H Performed by certified body press operator at [facility] ZNLVXH9938-09-54 12:02:00* Test Item Value Reference Range Interpretation Comments GLUBED (test code = GLUBED) 215 mg/dL 74-106 H Performed by certified body press operator at [facility] IUWIZR9383-55-76 08:01:00* Test Item Value Reference Range Interpretation Comments GLUBED (test code = GLUBED) 203 mg/dL 74-106 H Performed by certified body press operator at [facility] COMPREHENSIVE METABOLIC [id number] 07:38:00* Test Item Value Reference Range Interpretation [...] This LDL result is a direct measurement.========= OLWPMZ2795-07-95 07:38:00* Test Item Value Reference Range Interpretation Comments LIPASE (test code = LIP) 26349 U/L 73.0-393.0 H THYROID STIMULATING [id number] 07:38:00* Test Item Value Reference Range Interpretation Comments THYROID STIMULATING HORMONE (test code = TSH) 2.460 uIU/mL 0.36-3.7 4 N TSH REFERENCE RANGES: EUTHYROID: 0.35 - 4.3 mIU/mL HYPO : > 5.5 mIU/mL HYPER : < 0.35 mIU/mL [id number] 07:17:00* Test Item Value Reference Range Interpretation Comments GLYCOSYLATED HEMOGLOBIN (HA1C) (test code = GLYHGB) 9.0 % HbA1 SUGGESTED DIAGNOSIS: HbA1C (%) Diabetic >6.4Prediabetes 5.7 - 6.4Normal <5.7 ESTIMATED AVERAGE GLUCOSE (test code = EAG) 212 MG/DL [id number] 07:17:00* Test Item Value Reference Range Interpretation Comments AMMONIA (test code = AMM) 66 umol/L 11-32 H CBC W/AUTO [id number] 07:06:00* Test Item Value Reference Range Interpretation [...] 0.00 K/mm3 0.0-0.1 N - US ABDOMEN [id number] 07:05:00 Name: DEANDRE PHILIP [facility] : 1985 Age/S: 34 / M [address] Unit #: [id number] Loc: [place] [address] Phys: Kasey Heller MD Acct: [id number] Dis Date: Status: ADM IN PHONE #: [phone] Exam Date: 06/12/2019 0013 FAX #: [phone] Reason: Elevated liapse ,ammonia EXAMS: CPT CODE: [id number] US ABDOMEN COMPLETE 07202 HISTORY: Elevated lipase and pneumonia. COMPARISON: CT [...] KENNEDI RUSH RDMS Trnscb Date/Time: 06/13/2019 (704) AlbertoTH4 Orig Print D/T: S: 06/13/2019 (707) Probe: PAGE 1 Signed Report CBC W/AUTO [id number] 06:59:00* Test Item Value Reference Range Interpretation [...] # (test code = BA#) K/mm3 0.0-0.2 [id number] 05:00:00* Test Item Value Reference Range Interpretation Comments GLUBED (test code = GLUBED) 205 mg/dL 74-106 H Performed by certified body press operator at [facility] [id number] 00:54:00* Test Item Value Reference Range Interpretation Comments GLUBED (test code = GLUBED) 248 mg/dL 74-106 H Performed by certified body press operator at [facility] [id number] 00:54:00* Test Item Value Reference Range Interpretation Comments GLUBED (test code = GLUBED) 248 mg/dL 74-106 H Performed by certified body press operator at [facility] [id number] 20:59:00* Test Item Value Reference Range Interpretation Comments GLUBED (test code = GLUBED) 192 mg/dL 74-106 H Performed by certified body press operator at [facility] [id number] 17:39:00* Test Item Value Reference Range Interpretation Comments GLUBED (test code = GLUBED) 175 mg/dL 74-106 H Performed by certified body press operator at [facility] [id number] 15:21:00* Test Item Value Reference Range Interpretation Comments AMMONIA (test code = AMM) 120 umol/L 11-32 H [id number] 15:18:00* Test Item Value Reference Range Interpretation Comments PHOSPHORUS (test code = PHOS) 3.7 mg/dL 2.5-4.9 N [id number] 15:18:00* Test Item Value Reference Range Interpretation Comments MAGNESIUM (test code = MAG) 2.1 mg/dL 1.8-2.4 N FOLIC [id number] 15:18:00* Test Item Value Reference Range Interpretation Comments FOLIC ACID (test code = FOL) 19.6 ng/mL 3.10-17.50 H [id number] 14:56:00* Test Item Value Reference Range Interpretation Comments GLUBED (test code = GLUBED) 213 mg/dL 74-106 H Performed by certified body press operator at [facility] DRUGS OF ABUSE SCREEN [id number] 14:54:00* Test Item Value Reference Range Interpretation [...] code = MET[place]URN) NEGATIVE <300 ng/mL PROTHROMBIN [id number] 14:52:00* Test Item Value Reference Range Interpretation [...] (2.5-3.5) IS PATIENT ON ANTICOAGULANTS? NTHROMBOPLASTIN TIME [id number] 14:52:00* Test Item Value Reference Range Interpretation Comments THROMBOPLASTIN TIME PARTIAL (test code = PTT) 34.7 seconds 23.0-37. 0 N IS PATIENT ON ANTICOAGULANTS? NDRUGS OF ABUSE SCREEN [id number] 14:40:00* Test Item Value Reference Range Interpretation [...] 84-246 N ADD ON- CT ABD PELVIS [id number] 10:38:00 Name: DEANDRE PHILIP [facility] : 1985 Age/S: 34 / M [address] [facility] Unit #: [id number] [place]: [place] [address] Phys: Papa Roberts MD Acct: [id number] Dis Date: Status: REG ER PHONE #: [phone] Exam Date: 06/12/2019 0941 FAX #: [phone] Reason: RUQ abdominal pain EXAMS: CPT CODE: [id number] CT ABD PELVIS W/CONT 11199 REASON FOR EXAM: RUQ abdominal pain EXAM ORDER DATE: 06/12/2019 8:32 AM Ordering Britany: Papa Roberts MD PROCEDURE: - CT ABD [...] Signed Report ( CONTINUED) Name: DEANDRE PHILIP [facility] : 1985 Age/S: 34 / M [address] U nit #: [id number] Loc: [place] [address] Phys: Papa Roberts MD Acct: [id number] Dis Date: Status: REG ER PHONE #: [phone] Exam Date: 06/12/2019 0941 FAX #: [phone] Reason: RUQ abdominal pain EXAMS: CPT CODE: [id number] CT ABD PELVIS W/CONT 37964 <Continued> IMPRESSION: Findings suggest mild pancreatitis involving the head versus duodenitis involving the third and fourth segments of the duodenum. However no duodenal mass is seen and there is no evidence of pancreatic necrosis or fluid collection. Hepatomegaly with hepatic s teatosis. Location: [facility] at 1038 Reported and signed by: Jonathan Chandra MD CC: Papa Roberts MD Technologist:Kat Greene,RT(R),CT CTDI: DLP: Trnscb Date/Time: 06/12/2019 (1038) ColetteR.RR31 Orig Print D/T: S: 06/12/2019 (7554) PAGE 2 S igned Report BASIC METABOLIC [id number] 09:36:00* Test Item Value Reference Range Interpretation [...] CA) 9.0 mg/dL 8.5-10.1 N HEPATIC FUNCTION [id number] 09:36:00* Test Item Value Reference Range Interpretation [...] reference range due to change in reagent. [id number] 09:36:00* Test Item Value Reference Range Interpretation Comments LIPASE (test code = LIP) 4321 U/L 73.0-393.0 H [id number] 09:36:00* Test Item Value Reference Range Interpretation Comments TROPONIN-I (test code = TROPI) <0.015 ng/mL 0-0.045 N URINALYSIS [id number] 09:13:00* Test Item Value Reference Range Interpretation [...] #/LPF FEW Urine Source? Clean CatchBASIC METABOLIC [id number] 09:07:00* Test Item Value Reference Range Interpretation [...] CA) 9.0 mg/dL 8.5-10.1 N HEPATIC FUNCTION [id number] 09:07:00* Test Item Value Reference Range Interpretation [...] reference range due to change in reagent. [id number] 09:07:00* Test Item Value Reference Range Interpretation Comments LIPASE (test code = LIP) 4321 U/L 73.0-393.0 H [id number] 09:07:00* Test Item Value Reference Range Interpretation Comments TROPONIN-I (test code = TROPI) <0.015 ng/mL 0-0.045 N CBC W/O [id number] 08:50:00* Test Item Value Reference Range Interpretation [...] MPV) 10.2 fL 6.7-11.0 N CBC W/O [id number] 08:48:00* Test Item Value Reference Range Interpretation [...] VOLUME (test code = MPV) fL 6.7-11.0 [id number] 11:23:00* Test Item Value Reference Range Interpretation Comments GLUBED (test code = GLUBED) 174 mg/dL 74-106 H Performed by certified body press operator at [facility] [id number] 08:05:00* Test Item Value Reference Range Interpretation Comments GLUBED (test code = GLUBED) 123 mg/dL 74-106 H Performed by certified body press operator at [facility] BASIC METABOLIC [id number] 07:19:00* Test Item Value Reference Range Interpretation [...] code = CA) 9.0 mg/dL 8.5-10.1 N [id number] 07:19:00* Test Item Value Reference Range Interpretation Comments LIPASE (test code = LIP) 174 U/L 73.0-393.0 N CBC W/AUTO [id number] 06:35:00* Test Item Value Reference Range Interpretation [...] DIFF REQUIRED (test code = MDIFF) NO [id number] 20:15:00* Test Item Value Reference Range Interpretation Comments GLUBED (test code = GLUBED) 193 mg/dL 74-106 H Performed by certified body press operator at [facility] [id number] 16:09:00* Test Item Value Reference Range Interpretation Comments GLUBED (test code = GLUBED) 149 mg/dL 74-106 H Performed by certified body press operator at [facility] - US ABDOMEN [id number] 14:18:00 [facility] 1985 Age/S: 34 / M [address] Unit #: [id number] Loc: [place] [address] Phys: Nehemiah Alba CHARTER DRIVER Acct: [id number] Dis Date: Status: ADM IN PHONE #: [phone] Exam Date: 04/12/2019 1405 FAX #: [phone] Reason: ABDOMINAL PAIN EXAMS: CPT CODE: [id number] US ABDOMEN LTD 57301 REASON FOR EXAM: ABDOMINAL PAIN EXAM ORDER DATE: 04/12/2019 9:52 AM Attending Britany: Nehemiah Alba NP PROCEDURE: - US ABDOMEN LTD Comparison: CT of the abdomen and pelvis the previous night FINDINGS/ IMPRESSION: Visualized portion of the pancreas appears to be within normal limits. Hepatic parenchyma is hyperechoic which likely represents steatosis. Location: [facility] at 1418 Reported and signed by: Jonathan Chandra MD CC: Nehemiah Alba NP; Matt Alexandre MD Technologist: ZEN MIRANDA RT(R),[facility] Trnscb Date/Time: 04/12/2019 (1418) t.SDR.RR31 Orig Print D/T: S: 04/12/2019 (1593) Probe: PAGE 1 Signed Report - US ABDOMEN [id number] 14:18:00 [facility] 1985 Age/S: 34 / M [address] Unit #: [id number] Loc: [place] [address] Phys: Michelle Alba CHARTER DRIVER Acct: [id number] Di s Date: [id number] Status: DIS IN PHONE #: [phone] Exam Date: 04/12/2019 1405 FAX #: Reason: ABDOMINAL PAIN EXAMS: CPT CODE: [id number] US ABDOMEN LTD 62125 REASON FOR EXAM: ABDOMINAL PAIN EXAM ORDER DATE: 04/12/2019 9:52 AM At [place] M.Mela: Nehemiah Alba NP PROCEDURE: - US ABDOMEN [...] Alba; Matt Alexandre MD Technologist: ZEN MIRANDA RT(R),[facility] MS Trnscb Date/Time: 04/12/2019 (1417) t.MARIBELR.RR31 Orig Print D/T: S: 04/12/2019 (2552) Probe: PAGE 1 Signed Report [id number] 12:45:00* Test Item Value Reference Range Interpretation Comments LIPASE (test code = LIP) 352 U/L 73.0-393.0 N [id number] 11:36:00* Test Item Value Reference Range Interpretation Comments GLUBED (test code = GLUBED) 171 mg/dL 74-106 H Performed by certified body press operator at [facility] [id number] 10:38:00* Test Item Value Reference Range Interpretation [...] This LDL result is a direct measurement.========= [id number] 10:29:00* Test Item Value Reference Range Interpretation Comments ALCOHOL (test code = ALC) < 3 mg/dL 0.0-3.0 N -- INTERPRETIVE DATA NOTE: POSITIVE SCREENING RESULTS SHOULD BE CONSIDERED PRESUMPTIVE.WHEN COLLECTED FOR MEDICAL PURPOSES ONLY. SPECIMEN WILL NOTBE COLLECTED BY CHAIN OF CUSTODY.IF A CONFIRMATION OF POSITIVE RESULTS IS DESIRED, ACONFIRMATION TEST MUST BE REQUESTED BY THE PHYSICIAN AT ANADDITIONAL CHARGE TO THE PATIENT. [id number] 08:12:00* Test Item Value Reference Range Interpretation Comments GLUBED (test code = GLUBED) 140 mg/dL 74-106 H Performed by certified body press operator at [facility] COMPREHENSIVE METABOLIC [id number] 07:50:00* Test Item Value Reference Range Interpretation [...] reference range due to change in reagent. [id number] 07:50:00* Test Item Value Reference Range Interpretation Comments PHOSPHORUS (test code = PHOS) 3.8 mg/dL 2.5-4.9 N [id number] 07:50:00* Test Item Value Reference Range Interpretation Comments MAGNESIUM (test code = MAG) 2.0 mg/dL 1.8-2.4 N COMPREHENSIVE METABOLIC [id number] 07:07:00* Test Item Value Reference Range Interpretation [...] reference range due to change in reagent. [id number] 07:07:00* Test Item Value Reference Range Interpretation Comments PHOSPHORUS (test code = PHOS) 3.8 mg/dL 2.5-4.9 N [id number] 07:07:00* Test Item Value Reference Range Interpretation Comments MAGNESIUM (test code = MAG) 2.0 mg/dL 1.8-2.4 N LACTIC DEHYDROGENASE(LDH)2019-04-12 06:54:00* Test Item Value Reference Range Interpretation Comments LACTIC DEHYDROGENASE(LDH) (test code = LDH) 102 IUnit/L 84-246 N [id number] 04:40:00* Test Item Value Reference Range Interpretation Comments TROPONIN-I (test code = TROPI) <0.015 ng/mL 0-0.045 N DRUGS OF ABUSE SCREEN [id number] 02:03:00* Test Item Value Reference Range Interpretation [...] NEGATIVE <300 ng/mL DRUGS OF ABUSE SCREEN [id number] 01:33:00* Test Item Value Reference Range Interpretation [...] code = METHAURN) <300 ng/mL BASIC METABOLIC [id number] 00:47:00* Test Item Value Reference Range Interpretation [...] CA) 8.4 mg/dL 8.5-10.1 L HEPATIC FUNCTION [id number] 00:47:00* Test Item Value Reference Range Interpretation [...] reference range due to change in reagent. [id number] 00:47:00* Test Item Value Reference Range Interpretation Comments LIPASE (test code = LIP) 552 U/L 73.0-393.0 H [id number] 00:47:00* Test Item Value Reference Range Interpretation Comments TROPONIN-I (test code = TROPI) <0.015 ng/mL 0-0.045 N - CT ABD PELVIS [id number] 23:35:00 Name: DEANDRE PHILIP [facility] : 1985 Age/S: 34 / M [address] [facility] Unit #: [id number] Loc: [place] [address] Phys: Mj Borges CHARTER DRIVER Acct: [id number] Dis Date: Status: REG ER PHONE #: [phone] Exam Date: 04/11/2019 2310 FAX #: [phone] Reason: ABD PAIN EXAMS: CPT CODE: [id number] CT ABD PELVIS W/CONT 61944 CT ABDOMEN AND PELVIS ( with intravenous [...] 1 Signed Report (CONTINUED) Name: DEANDRE TRENT [facility] : 1985 A ge/S: 34 / [facility] [address] [facility] [id number] Loc : [place] [address] Phys: Mj Borges CHARTER DRIVER Acct: [id number] Dis Date: Status: REG ER PHONE #: [phone] Exam Date: 04/11/20192309 FAX #: [phone] Reason: ABD PAIN EXAMS: CPT CODE: [id number] CT ABD PELVIS W/CONT 67667 <Continued> at 2335 Reported and signed by: Greg Baez M.D. CC: Andres Blanco MD; Mj Borges NP Technologist:RT MERVIN CTDI: DLP: Trnscb Date/Time: 04/11/2019 (2335) [email or web address] Orig Print D/T: S: 04/11/2019 (8256) PAGE 2 Signed Report - CT ABD PELVIS [id number] 23:35:00 Name: DEANDRE PHILIP [facility] : 1985 Age/S: 34 / M [address] [facility] Unit #: [id number] Loc: [place] [address] Phys: Mj Borges CHARTER DRIVER Acct: [id number] Dis Date: 04/13/2019 Status: DIS IN PHONE #: [phone] Exam Date: 04/11/20192309 FAX #: [phone] Reason: ABD PAIN EXAMS: CPT CODE: [id number] CT ABD PELVIS W/CONT 78400 CT ABDOMEN AND PELVIS ( with intravenous [...] 1 Signed Report (CONTINUED) Name: DEANDRE PHILIP [facility] : 1985 Age/S: 34 / M [address] [facility] Unit #: [id number] Loc: [place] [address] Phys: Mj Borges CHARTER DRIVER Acct: [id number] Dis Date: 04/13/2019 Status: DIS IN PHONE #: [phone] Exam Date: 04/11/2019 2310 FAX #: [phone] Reason: ABD PAIN EXAMS: CPT CODE: [id number] CT ABD PELVIS W/CONT 76369 <Continued> at 2331 Reported and signed by: Greg Baez M.D. CC: Andres Blanco MD; Mj Borges NP Technologist:DEANDRA YA RT CTDI: DLP: Trnscb Date/Time: 04/11/2019 (1239) AlbertoRK5 Orig Print D/T: S: 04/11/2019 (5396) PAGE 2 Signed Report BASIC METABOLIC [id number] 23:12:00* Test Item Value Reference Range Interpretation [...] CA) 8.4 mg/dL 8.5-10.1 L HEPATIC FUNCTION [id number] 23:12:00* Test Item Value Reference Range Interpretation [...] reference range due to change in reagent. [id number] 23:12:00* Test Item Value Reference Range Interpretation Comments LIPASE (test code = LIP) 552 U/L 73.0-393.0 H [id number] 23:12:00* Test Item Value Reference Range Interpretation Comments TROPONIN-I (test code = TROPI) <0.015 ng/mL 0-0.045 N BASIC METABOLIC [id number] 22:55:00* Test Item Value Reference Range Interpretation [...] code = CA) mg/dL 8.5-10.1 HEPATIC FUNCTION [id number] 22:55:00* Test Item Value Reference Range Interpretation [...] TOTAL (test code = ALKP) IUnit/L 45-117 [id number] 22:55:00* Test Item Value Reference Range Interpretation Comments LIPASE (test code = LIP) U/L 73.0-393.0 [id number] 22:55:00* Test Item Value Reference Range Interpretation Comments TROPONIN-I (test code = TROPI) ng/mL 0-0.045 URINALYSIS [id number] 22:51:00* Test Item Value Reference Range Interpretation [...] #/LPF FEW Urine Source? Clean CatchCBC W/O [id number] 22:37:00* Test Item Value Reference Range Interpretation [...] MPV) 10.2 fL 6.7-11.0 N CBC W/O [id number] 22:36:00* Test Item Value Reference Range Interpretation [...] VOLUME (test code = MPV) fL 6.7-11.0 [id number] 08:04:00* Test Item Value Reference Range Interpretation Comments GLUBED (test code = GLUBED) 137 mg/dL 74-106 H Performed by certified body press operator at [facility] BASIC METABOLIC [id number] 05:15:00* Test Item Value Reference Range Interpretation [...] CA) 9.2 mg/dL 8.5-10.1 N BASIC METABOLIC [id number] 05:10:00* Test Item Value Reference Range Interpretation [...] code = CA) mg/dL 8.5-10.1 CBC W/AUTO [id number] 04:49:00* Test Item Value Reference Range Interpretation [...] code = NRBC#) 0.00 K/mm3 0.0-0.1 N [id number] 21:26:00* Test Item Value Reference Range Interpretation Comments GLUBED (test code = GLUBED) 242 mg/dL 74-106 H Performed by certified body press operator at [facility] [id number] 16:25:00* Test Item Value Reference Range Interpretation Comments GLUBED (test code = GLUBED) 184 mg/dL 74-106 H Performed by certified body press operator at [facility] [id number] 11:17:00* Test Item Value Reference Range Interpretation Comments GLUBED (test code = GLUBED) 223 mg/dL 74-106 H Performed by certified body press operator at [facility] [id number] 07:51:00* Test Item Value Reference Range Interpretation Comments GLUBED (test code = GLUBED) 229 mg/dL 74-106 H Performed by certified body press operator at [facility] [id number] 21:05:00* Test Item Value Reference Range Interpretation Comments GLUBED (test code = GLUBED) 156 mg/dL 74-106 H Performed by certified body press operator at [facility] [id number] 18:34:00* Test Item Value Reference Range Interpretation Comments GLUBED (test code = GLUBED) 199 mg/dL 74-106 H Performed by certified body press operator at [facility] [id number] 18:34:00* Test Item Value Reference Range Interpretation Comments GLUBED (test code = GLUBED) 213 mg/dL 74-106 H Performed by certified body press operator at [facility] [id number] 08:41:00* Test Item Value Reference Range Interpretation Comments GLUBED (test code = GLUBED) 128 mg/dL 74-106 H Performed by certified body press operator at [facility] [id number] 21:11:00* Test Item Value Reference Range Interpretation Comments GLUBED (test code = GLUBED) 245 mg/dL 74-106 H Performed by certified body press operator at [facility] [id number] 16:43:00* Test Item Value Reference Range Interpretation Comments GLUBED (test code = GLUBED) 179 mg/dL 74-106 H Performed by certified body press operator at [facility] [id number] 12:19:00* Test Item Value Reference Range Interpretation Comments GLUBED (test code = GLUBED) 147 mg/dL 74-106 H [facility]~ [id number] 08:25:00* Test Item Value Reference Range Interpretation Comments GLUBED (test code = GLUBED) 138 mg/dL 74-106 H [facility] certified [facility] press [facility] ACUTE HEPATITIS [id number] 08:10:00* Test Item Value Reference Range Interpretation [...] with a HCV Nucleic Acid Amplification test ([id number]).Performed At: [facility] [address] [place], [place] [id number] Jadon Carvalho MD Ph:[phone] [id number] 20:11:00* Test Item Value Reference Range Interpretation Comments GLUBED (test code = GLUBED) 216 mg/dL 74-106 H [facility] certified [facility] press [facility] [id number] 16:53:00* Test Item Value Reference Range Interpretation Comments GLUBED (test code = GLUBED) 142 mg/dL 74-106 H [facility] certified [facility] press [facility] [id number] 12:02:00* Test Item Value Reference Range Interpretation Comments GLUBED (test code = GLUBED) 210 mg/dL 74-106 H Performed by certified body press operator at [facility] - US ABDOMEN [id number] 10:41:00 Name: DEANDRE PHILIP [facility] : 1985 Age/S: 34 / M [address] [facility] Unit #: [id number] Loc: [place] [address] Phys: Ana Pearl MD Acct: [id number] Dis Date: Status: ADM IN PHONE #: [phone] Exam Date: 03/07/2019 1036 FAX #: [phone] Reason: cirrhosis? EXAMS: CPT CODE: [id number] US ABDOMEN LTD 29013 REASON FOR EXAM: cirrhosis? EXAM ORDER DATE: [...] 1 Signed Report (CONTINUED) Name: DEANDRE PHILIP [facility] : 1985 Age/S: 34 / M [address] [facility] Unit #: [id number] Loc: [place] [address] Phys: Ana Pearl MD Acct: [id number] Dis Date: Status: ADM IN PHONE #: [phone] Exam Date: 03/07/2019 1036 FAX #: [phone] Reason: cirrhosis? EXAMS: CPT CODE: [id number] US ABDOMEN LTD 49298 <Continued> IMPRESSION: Hepatomegaly with hepatic steatosis. Prior cholecystectomy. Location: [facility] Electronically Si gned by Jonathan Chandra MD on 03/07/2019 at 1041 Reported an d signed by: Jonathan Chandra MD CC: Shayy Chamberlain MD; Ana Pearl MD Technologist: DONNA LUONG RT(R), SHAN Trnmsb Date/Time: 03/07/2019 (1041) t.SDR.RR31 Orig Print D/T: S: 03/07/2019 (1044) Probe: PAGE 2 Signed Report HEPATIC FUNCTION [id number] 09:37:00* Test Item Value Reference Range Interpretation [...] reference range due to change in reagent. [id number] 08:23:00* Test Item Value Reference Range Interpretation Comments GLUBED (test code = GLUBED) 105 mg/dL 74-106 N Performed by certified body press operator at [facility] BASIC METABOLIC [id number] 05:51:00* Test Item Value Reference Range Interpretation [...] CA) 8.9 mg/dL 8.5-10.1 N BASIC METABOLIC [id number] 05:42:00* Test Item Value Reference Range Interpretation [...] code = CA) mg/dL 8.5-10.1 CBC W/AUTO [id number] 05:37:00* Test Item Value Reference Range Interpretation [...] code = NRBC#) 0.00 K/mm3 0.0-0.1 N [id number] 16:28:00* Test Item Value Reference Range Interpretation Comments GLUBED (test code = GLUBED) 184 mg/dL 74-106 H Performed by certified body press operator at [facility] [id number] 12:36:00* Test Item Value Reference Range Interpretation Comments GLUBED (test code = GLUBED) 261 mg/dL 74-106 H Performed by certified body press operator at [facility] [id number] 07:26:00* Test Item Value Reference Range Interpretation Comments GLUBED (test code = GLUBED) 194 mg/dL 74-106 H Performed by certified body press operator at [facility] [id number] 20:23:00* Test Item Value Reference Range Interpretation Comments GLUBED (test code = GLUBED) 266 mg/dL 74-106 H Performed by certified body press operator at [facility] [id number] 16:23:00* Test Item Value Reference Range Interpretation Comments GLUBED (test code = GLUBED) 292 mg/dL 74-106 H Performed by certified body press operator at [facility] [id number] 16:23:00* Test Item Value Reference Range Interpretation Comments GLUBED (test code = GLUBED) 302 mg/dL 74-106 H Performed by certified body press operator at [facility] [id number] 11:24:00* Test Item Value Reference Range Interpretation Comments GLUBED (test code = GLUBED) 218 mg/dL 74-106 H Performed by certified body press operator at [facility] [id number] 07:51:00* Test Item Value Reference Range Interpretation Comments GLUBED (test code = GLUBED) 158 mg/dL 74-106 H Performed by certified body press operator at [facility] BASIC METABOLIC [id number] 06:00:00* Test Item Value Reference Range Interpretation [...] CA) 8.9 mg/dL 8.5-10.1 N BASIC METABOLIC [id number] 05:54:00* Test Item Value Reference Range Interpretation [...] code = CA) mg/dL 8.5-10.1 CBC W/AUTO [id number] 05:33:00* Test Item Value Reference Range Interpretation [...] code = NRBC#) 0.00 K/mm3 0.0-0.1 N [id number] 21:10:00* Test Item Value Reference Range Interpretation Comments GLUBED (test code = GLUBED) 283 mg/dL 74-106 H Performed by certified body press operator at [facility] [id number] 16:52:00* Test Item Value Reference Range Interpretation Comments GLUBED (test code = GLUBED) 197 mg/dL 74-106 H Performed by certified body press operator at [facility] [id number] 11:42:00* Test Item Value Reference Range Interpretation Comments GLUBED (test code = GLUBED) 187 mg/dL 74-106 H Performed by certified body press operator at [facility] [id number] 08:01:00* Test Item Value Reference Range Interpretation Comments GLUBED (test code = GLUBED) 88 mg/dL 74-106 N Performed by certified body press operator at [facility] [id number] 20:51:00* Test Item Value Reference Range Interpretation Comments GLUBED (test code = GLUBED) 267 mg/dL 74-106 H Performed by certified body press operator at [facility] [id number] 16:28:00* Test Item Value Reference Range Interpretation Comments GLUBED (test code = GLUBED) 234 mg/dL 74-106 H Performed by certified body press operator at [facility] [id number] 11:54:00* Test Item Value Reference Range Interpretation Comments GLUBED (test code = GLUBED) 157 mg/dL 74-106 H Performed by certified body press operator at [facility] XCIXCQ8976-78-67 08:23:00* Test Item Value Reference Range Interpretation Comments GLUBED (test code = GLUBED) 144 mg/dL 74-106 H Performed by certified body press operator at [facility] BASIC METABOLIC [id number] 06:18:00* Test Item Value Reference Range Interpretation [...] CA) 8.2 mg/dL 8.5-10.1 L CBC W/AUTO [id number] 06:13:00* Test Item Value Reference Range Interpretation [...] (test code = MDIFF) NO BASIC METABOLIC [id number] 06:13:00* Test Item Value Reference Range Interpretation [...] CALCIUM (test code = CA) mg/dL 8.5-10.1 [id number] 20:14:00* Test Item Value Reference Range Interpretation Comments GLUBED (test code = GLUBED) 182 mg/dL 74-106 H Performed by certified body press operator at [facility] [id number] 15:59:00* Test Item Value Reference Range Interpretation Comments GLUBED (test code = GLUBED) 223 mg/dL 74-106 H Performed by certified body press operator at [facility] [id number] 11:35:00* Test Item Value Reference Range Interpretation Comments GLUBED (test code = GLUBED) 164 mg/dL 74-106 H Performed by certified body press operator at [facility] [id number] 07:50:00* Test Item Value Reference Range Interpretation Comments GLUBED (test code = GLUBED) 113 mg/dL 74-106 H Performed by certified body press operator at [facility] BASIC METABOLIC [id number] 05:33:00* Test Item Value Reference Range Interpretation [...] CA) 9.0 mg/dL 8.5-10.1 N CBC W/AUTO [id number] 05:29:00* Test Item Value Reference Range Interpretation [...] code = NRBC#) 0.00 K/mm3 0.0-0.1 N [id number] 20:55:00* Test Item Value Reference Range Interpretation Comments GLUBED (test code = GLUBED) 187 mg/dL 74-106 H Performed by certified body press operator at [facility] [id number] 16:24:00* Test Item Value Reference Range Interpretation Comments GLUBED (test code = GLUBED) 274 mg/dL 74-106 H [facility] - DUP AB/PEL/SC [id number] 09:07:00 Name: DEANDRE PHILIP [facility] : 1985 Age/S: 34 / M [address] [facility] [id number] [place] [address] Phys: Cheryl Lawton CHARTER DRIVER Acct: [id number] Dis Date: Status: REG ER PHONE #: [phone] Exam Date: 03/01/2019 0840 FAX #: [phone] Reason: SCROTAL PAIN EXAMS: CPT CODE: [id number] DUP AB/PEL/SC COMP 66548 HISTORY: Testicular pain. COMPARISON: None available. Bilateral testicular ultrasound with color and Doppler flow and grayscale imaging. Location: [facility]. Low-resistance arterial Doppler flow with [...] 1 Signed Report (CONTINUED) Name: DEANDRE PHILIP [facility] : 1985 Age/S: 34 / M [address] [facility] Unit #: [id number] Loc: [place] [address] Phys: Cheryl Lawton CHARTER DRIVER Acct: [id number] Dis Date: Status: REG ER PHONE #: [phone] Exam Date: 03/01/2019 0840 FAX #: [phone] Reason: SCROTAL PAIN EXAMS: CPT CODE: [id number] DUP AB/PEL/SC COMP 09967 <Continued> CC: Cheryl Lawton NP Technologist: ZEN MIRANDA RT(R),RDMS Trnscb Date/Time: 03/01/2019 (09) t.SDR.TH4 Orig Print D/T: S: 03/01/2019 (09) Probe: PAGE 2 Signed Report - US SCROTUM AND [id number] 09:07:00 Name: DEANDRE PHILIP [facility] : 1985 Age/S: 34 / M [address] [facility] Unit #: [id number] Loc: [place] [address] Phys: Kely Lawton CHARTER DRIVER Acct: [id number] Di s Date: Status: REG ER PHONE #: [phone] Exam Date: 03/01/2019 0840 FAX #: Reason: SCROTAL PAIN EXAMS: CPT CODE: [id number] US SCROTUM AND CNTS 30714 HISTORY: Testicular pain. COMPARISON: None available. Bilateral [...] No hydrocele or va ricocele. a t 906 Reported and signed by: Ronni Velásquez M.D. PAGE 1 Signed Report (CONTINUED) N jesenia: DEANDRE PHILIP [facility] : 0 1985 Age/S: 34 / M [address] [facility] Unit #: [id number] Loc: [place] [address] Phys: Cheryl Lawton NP Acct: [id number] Dis D ate: Status: REG ER PHONE #: [phone] Exam Date: 03/01/2019 0840 FAX #: [phone] Reason: SCROTAL PAIN EXAMS: CPT CODE: [id number] US SCROTUM AND C NTS 11694 <Continued> CC: Cheryl Lawton NP Technologist: ZEN MIRANDA RT(R),RDMS Trnmsb Date/Time: 03/01/2019 (906) Josué.TH4 Orig Print D/T: S: 03/01/2019 (0911) Probe: PAGE 2 Signed Report BASIC METABOLIC [id number] 09:02:00* Test Item Value Reference Range Interpretation [...] CA) 9.2 mg/dL 8.5-10.1 N HEPATIC FUNCTION [id number] 09:02:00* Test Item Value Reference Range Interpretation [...] range due to change in reagent. URINALYSIS VXOGEZYZ8515-54-55 08:57:00* Test Item Value Reference Range Interpretation [...] #/LPF FEW Urine Source? Clean CatchBASIC METABOLIC [id number] 08:54:00* Test Item Value Reference Range Interpretation [...] code = CA) mg/dL 8.5-10.1 HEPATIC FUNCTION [id number] 08:54:00* Test Item Value Reference Range Interpretation [...] (test code = ALKP) IUnit/L 45-117 URINALYSIS SKWPPPUU2822-38-78 08:44:00* Test Item Value Reference Range Interpretation [...] HPF NONE Urine Source? Clean CatchCBC W/O [id number] 08:44:00* Test Item Value Reference Range Interpretation [...] code = MPV) 10.5 fL 6.7-11.0 N CHEM [id number] 09:48:0097[facility] ZUJXM0668-65-50 09:48:005 [facility] KREPZ4864-41-14 09:48:000.81[facility]annCHE[facility] PANEL 2019-02-23 09:48:24557Hbeuylmm [facility]CHE[facility] PZSJZ5607-24-95 09:48:004.2[facility] HXPMQ7694-51-62 09:48:02869Ppkflwzp [facility]annCHE[facility] EKBPA5775-05-83 09:48:0031[facility] YMEZG2680-50-97 09:48:009.7[facility] LKCYR2175-34-57 09:48:004.2[facility] OWOXK0399-90-24 09:48:27760 [facility] GJHRS0367-76-19 09:48:23354Jlnnyhme HermannCHEM PANEL 2019-02-23 09:48:002.2[facility] YyqyasvDGWAWNTCJB3327-32-56 09:48:006.5[facility]annCHE[facility] VAIMS7604-23-89 11:08:0091[facility] UJQZN7915-11-68 11:08:006[facility] DTTVQ4326-83-38 11:08:000.74[facility] QVVRC1909-57-89 11:08:41565Ppfmqhur [facility]CHE[facility] AVTQE3127-54-56 11:08:003.9 [facility] DJQIK4095-90-54 11:08:70231Fjduxzfs HermannCHEM PANEL 2019-02-22 11:08:0028[facility]annCHE[facility] SKNRU0029-02-20 11:08:009.7[facility] IQZYP5897-09-20 11:08:008.9[facility] UODXI2725-66-78 11:08:08668Tbvuxdoy [facility]annCHE[facility] FABVE0257-53-20 11:08:46211Ysjnppev [facility] VNTYV0633-85-87 11:08:002.2[facility]CHE[facility] LSCSP8192-51-85 11:08:004.4 [facility] DefosfoEEWDYSXYRO3740-24-43 11:08:008.6[facility]annCHE[facility] PANEL 2019-02-21 10:10:007.4[facility] QFJQL7816-53-70 10:10:003.9[facility] OJEWI3893-80-65 10:10:46245Pajgoojd [facility]annCHE[facility] OYVND1148-23-61 10:10:0062[facility] PHCJI9115-05-95 10:10:0075[facility] FCSUR8204-61-54 10:10:000.5[facility] RLMDV1558-93-50 10:10:000.1 [facility] HUVDK3109-86-53 10:10:003.5[facility]annCHE[facility] PANEL 2019-02-21 10:10:00* Test Item Value Reference Range Interpretation Comments A/G Ratio (test code = A/G Ratio) 1.1 1 0.7-1.6 [facility] WKPSF5783-13-20 10:10:000.4[facility]annCHE[facility] PANEL 2019-02-21 10:10:90249Qbuhxqxx TnmgraoOGGYYV8732-63-30 10:10:02304Zzkaawsv [facility]CHE[facility] MRBGA7844-81-56 11:08:007.3[facility] QJBSY3310-74-63 11:08:003.8[facility] XSXEV8808-84-01 11:08:17431Avcgylif [facility]annCHEM VIDIR9048-39-10 11:08:0065[facility] SYAUW4961-69-23 11:08:0081 [facility] CTCEK7944-62-18 11:08:000.4[facility]annCHE[facility] PANEL 2019-02-20 11:08:000.1[facility] AZPDS5217-51-79 11:08:003.5[facility] MAMNG0029-10-44 11:08:00* Test Item Value Reference Range Interpretation Comments A/G Ratio (test code = A/G Ratio) 1.1 1 0.7-1.6 [facility] TFHON2993-29-17 11:08:000.3[facility] PqlprknEASIWM2882-40-21 11:08:05728Ncridivf [facility]CHE[facility] UJNQY0227-12-74 13:04:76507Xssiidwc [facility]CHE[facility] HGPLS4989-46-73 13:04:007[facility] HIOSA1425-25-95 13:04:000.70 [facility] FHLFY7075-41-02 13:04:65047Joaktjdu HermannCHEM PANEL 2019 13:04:004.2[facility] TGCOU5748-96-15 13:04:49258Ecuqlpvp [facility]CHE[facility] NXXXI0023-51-05 13:04:0027[facility] RXCYS5800-22-48 13:04:009.5[facility] MSCWP4321-06-29 13:04:006.6[facility] KHAPL8981-96-38 13:04:003.3[facility] PWAZP3643-91-35 13:04:76796 [facility] IQOGK7666-44-33 13:04:0076[facility]annCHEM PANEL 2019 13:04:0079[facility]annCHE[facility] MGGVU9090-39-11 13:04:000.7[facility] CJFFY2445-33-33 13:04:008.2[facility]annCHE[facility] BDKEZ0165-61-56 13:04:00* Test Item Value Reference Range Interpretation Comments B/C Ratio (test code = B/C Ratio) 10 1 - [facility] GVTMV6847-31-68 13:04:003.3[facility]annCHEM PANEL 2019 13:04:00* Test Item Value Reference Range Interpretation Comments A/G Ratio (test code = A/G Ratio) 1.0 1 0.7-1.6 [facility] VXHQH6659-35-79 13:04:41221Rcaxvocx JfeqtgwZWIUNB4335-53-82 13:04:79670Efktyaiu [facility]CHE[facility] VSZGE8144-44-32 09:53:00* Test Item Value Reference Range Interpretation Comments B/C Ratio (test code = B/C Ratio) 8 1 08-08 [facility] SbhhpquLVWPMXMNDI1786-57-47 09:53:0064.7[facility] HermannHEMATOLOGY 2019-02-18 09:53:0021.6[facility] UovxxtjLIAUMRQNLM3582-94-76 09:53:009.3[facility] CauawnpWTFNJEGFRV3913-55-92 09:53:003.8[facility] MpbxjphMSAKUTLPFQ3556-49-97 09:53:000.6[facility] JsifwfcCAWXPLNOOD8515-20-26 09:53:003.9[facility] XMUWIFODQM0360-45-45 09:53:001.3[facility] WdvpzxpNFYQFIYVUI2589-48-88 09:53:000.6 [facility] LfziiqmIVKIYUJTAN1461-15-46 09:53:000.2[facility] HermannHEMATOLOGY 2019-02-18 09:53:006.0[facility] MehcmemYXZEECYKNN9225-16-21 09:53:004.93[facility] LvqskauWNIEERUUYR1898-94-09 09:53:0014.2[facility] CwzrblxKPOYTFUMGQ5900-09-94 09:53:0042.3[facility] EfbmvypADIDLUBXAW4251-89-28 09:53:0085.8[facility] DTPXOPNUGU5076-81-58 09:53:00* Test Item Value Reference Range Interpretation Comments MCH (test code = MCH) 28.9 pg 27.0-31.0 [facility] NfsbpvxDZYDPCKUZX0220-97-70 09:53:0033.6[facility] HermannHEMATOLOGY 2019-02-18 09:53:0013.4[facility] XxtqtdhPPRKZVQRXN6613-00-76 09:53:09615Cmupnrss JzvntttEDLUOMLORR4522-67-37 09:53:007.9[facility] UqcqcdiJCHNNXDDXP3040-70-32 21:07:0765.7[facility] SmzyzttZFKGAJFPKD3398-58-63 21:07:0720.5[facility] HBAGKRPSKX3953-85-67 21:07:0710.2[facility] XdlkyylCMHEAZGUSL4431-63-11 21:07:07 2.9[facility] VczwixhOALXVWAJUQ4574-28-45 21:07:070.7[facility] HermannHEMATOLOGY 2019-02-17 21:07:074.2[facility] EygisowEWHTBNAKVB1106-88-80 21:07:071.3[facility] ZfpmsanRXTFIHSYZW7962-53-33 21:07:070.7[facility] TdoszwxPVNVIHXMJJ3355-72-43 21:07:070.2[facility] NdkclcfCEVCUPFNER5793-69-59 21:07:076.4[facility] PTYBRKTIWX8370-07-30 21:07:074.66[facility] ZdqyduyZZCMDDPWNF1498-51-83 21:07:07 13.6[facility] WhezzqyZRADWFYSLW7791-87-30 21:07:0740.2[facility] HermannHEMATOLOGY 2019-02-17 21:07:0786.3[facility] LmbjlhyUPVYOXTNBZ2255-43-78 21:07:07* Test Item Value Reference Range Interpretation Comments MCH (test code = MCH) 29.2 pg 27.0-31.0 [facility] ZqqhvuiZUTSGJDDXK0166-83-21 21:07:0733.8[facility] HermannHEMATOLOGY 2019-02-17 21:07:0713.5[facility] MzwqgftXTZTDVCCYW6376-13-75 21:07:91556Agambluo GfcnykyATDKBPVWJJ0834-46-60 21:07:077.9[facility] HermannCARDIAC HBPRREO9059-88-92 09:35:00<0.02[facility]annCHEM JYSEU5034-78-62 09:35:00* Test Item Value Reference Range Interpretation Comments B/C Ratio (test code = B/C Ratio) 21 1 6-25 [facility] QgptwwgADULSOKJNT5879-76-36 09:35:0010.0[facility] HermannHEMATOLOGY 2019-02-17 09:35:005.31[facility] PclcdobQYXOECUNHP4111-44-43 09:35:0015.4[facility] ItuzjqvARFQFJHUIM2841-14-56 09:35:0045.2[facility] HoxskorTHITJBGZFA7495-79-03 09:35:0085.1[facility] NqsgujxRCKQTOZLOU9837-58-37 09:35:00* Test Item Value Reference Range Interpretation Comments MCH (test code = MCH) 29.0 pg 27.0-31.0 [facility] MguidnnZBDIVBMHLL7725-56-67 09:35:0034.1[facility] HermannHEMATOLOGY 2019-02-17 09:35:0013.3[facility] WitswwgGRNPROHUQL2232-08-89 09:35:52653Mjltdxmu MqnwkqfQZLICVLSKG7016-05-78 09:35:008.3[facility] UcxzmefOQPBOLSNVA1279-76-20 09:35:0074.8[facility] SfmdcivDENITIDHJX2483-08-15 09:35:0015.7[facility] OSBZSITUEK8690-92-58 09:35:008.3[facility] SoixfehCGPRGQPFNP5686-61-04 09:35:000.8 [facility] NjdjeudIUDVIEMCPP3136-62-96 09:35:000.4[facility] HermannHEMATOLOGY 2019-02-17 09:35:007.5[facility] CbbrcdtXVSYAOGUUJ7572-82-37 09:35:001.6[facility] WewlodxVSOIRWIERZ1892-26-47 09:35:000.8[facility] NljbznwAIYAQVIFXR6329-73-29 09:35:000.1[facility] NiiammlAPFFGQ7797-48-52 09:35:98192Bxcnmoqu HermannLIPIDS 2019-02-17 09:35:0027[facility] FdjluypIWQUHK0208-20-43 09:35:00* Test Item Value Reference Range Interpretation Comments CHD Risk (test code = CHD Risk) 7.56 1 4.00-7.30 [facility] IulqrpzZWRUUK7657-55-49 09:35:00See Note 5*NA*(02/17/19 3:35 AM)[facility] JAFXA6030-32-95 09:35:00Yellow *NA*(02/17/19 3:35 AM)[facility] YFRRK6631-98-69 09:35:00Clear (02/17/19 3:35 AM)[facility] URINE AND WTAKP6546-89-88 09:35:00* Test Item Value Reference Range Interpretation Comments UA Spec Grav (test code = UA Spec Grav) 1.029 1 [facility] UERLI3917-63-10 09:35:00* Test Item Value Reference Range Interpretation Comments UA pH (test code = UA pH) 5.0 1 5.0-8.0 [facility] AHZKW6072-53-60 09:35:00Negative *NA*(02/17/19 3:35 AM) [facility] XXJVK7203-86-44 09:35:00Negative (02/17/19 3:35 AM) [facility] UHDZV6954-98-72 09:35:00Negative (02/17/19 3:35 AM) [facility] FEURA0090-51-48 09:35:00Negative (02/17/19 3:35 AM) [facility] IXWEP3813-05-97 09:35:001[facility] PWOLR4729-18-87 09:35:001[facility] LGXYP0780-65-08 09:35:001 [facility]annCHEM BUHZH6137-10-56 09:00:37728Pqopiehk VyanjkqYLYIZJ2945-18-89 09:00:35100Ugmwuchv HermannCHEM DJJGJ7520-91-66 15:16:04359Amdaetks HermannCHEM NUXJO5465-38-78 15:16:0011[facility]annCHE[facility] MMFLA7398-72-64 15:16:000.85 [facility]CHE[facility] AGDYK4623-50-72 15:16:88458Ihirlazz HermannCHEM PANEL 2018-12-01 15:16:003.7[facility]annCHE[facility] YTDDB7665-72-79 15:16:60217Oiyxgetg [facility]CHE[facility] YSPVB9174-71-32 15:16:0026[facility]CHE[facility] ZDGJI7017-84-09 15:16:009.5[facility]annCHE[facility] YBWAN8044-24-82 15:16:007.3[facility]annCHE[facility] RUOPH3355-17-50 15:16:003.4[facility]annCHE[facility] SDOYY2110-73-41 15:16:97342 [facility]CHE[facility] MAZLZ8955-46-43 15:16:0068[facility]annCHEM PANEL 2018-12-01 15:16:0085[facility]annCHEM KFLZV3272-55-58 15:16:000.7[facility]annCHEM EZUTU8886-13-39 15:16:0011.7[facility]annCHEM RJLDJ1595-37-93 15:16:00* Test Item Value Reference Range Interpretation Comments B/C Ratio (test code = B/C Ratio) 13 1 6-25 [facility] HPCKO4188-81-96 15:16:003.9[facility]annCHEM PANEL 2018-12-01 15:16:00* Test Item Value Reference Range Interpretation Comments A/G Ratio (test code = A/G Ratio) 0.9 1 0.7-1.6 [facility] BDMJO6417-17-08 15:16:35484Knhutgws HermannCHEM PANEL 2018-12-01 15:16:63389Cgwfvyoj [facility]CHE[facility] DQUXJ4200-17-93 15:16:003.4[facility]annCHE[facility] ZFTRZ2003-44-60 15:16:002.1[facility] FkbfvcrJEDJYSVJNK7522-63-06 15:16:006.2[facility] ImexzsiTKGCOSNVRM1619-62-36 15:16:004.80[facility] UMIZLYVNKL6865-59-03 15:16:0014.3[facility] LmrufuqOMYDLKIGKM0779-89-64 15:16:00 42.1[facility] ZrrmkxyIKGTXJUVIB4771-08-58 15:16:0087.9[facility] HermannHEMATOLOGY 2018-12-01 15:16:00* Test Item Value Reference Range Interpretation Comments MCH (test code = MCH) 29.8 pg 27.0-31.0 [facility] XefcaonLVUKTDNCXK7087-91-40 15:16:0033.9[facility]annHEMATOLOGY 2018-12-01 15:16:0013.0[facility] ZatdlvxGJNDKFBKSX1235-77-93 15:16:71429Awiabgku UfzuilwHQTTFLVUIM9043-30-42 15:16:007.9[facility] PtekaxpPULQZDWESH0347-76-05 15:16:0060.5[facility] FjgywpiUESRZERUZV5453-06-70 15:16:0024.3[facility] KLOTKVGFPZ1013-68-19 15:16:009.8[facility] DbasoqbRHQDNMSBVP3003-40-55 15:16:004.7 [facility] XannhefEBPOTJFZHT4703-26-49 15:16:000.7[facility]annHEMATOLOGY 2018-12-01 15:16:003.7[facility] CcuqgxvGTPQXQKHMM6912-06-26 15:16:001.5[facility] YszqyrpHVDSUTJJUH9520-02-16 15:16:000.6[facility] RuyjsleXBSMAAUMVB8032-33-99 15:16:000.3[facility] EbjtpxrFPNDOGZMIA2445-15-81 15:16:0077.8[facility] HETIBA4449-88-36 15:16:86332Nznytcbh HermannCHEM YDUFG5788-22-94 12:12:48457 [facility]CHE[facility] QDCKT8350-06-70 12:12:0052[facility]annCHEM PANEL 2018-11-30 12:12:004[facility]annCHE[facility] NEZQH1679-86-70 12:12:000.78[facility]annCHEM BWCPV3454-17-99 12:12:02881Hulhmkam [facility]annCHE[facility] UFWJQ5299-14-75 12:12:004.2[facility]annCHE[facility] GCEXC7728-71-20 12:12:72889Tfhbhpfo [facility]annCHE[facility] IDJKQ5196-88-13 12:12:0029[facility]annCHE[facility] RISTF1724-12-57 12:12:009.4 [facility] VQKEP8584-19-49 12:12:0010.2[facility]annCHEM PANEL 2018-11-30 12:12:08652Cdurpect WjfnoxsSRFXURUHNB1945-35-36 12:12:007.6[facility] RnubtflPGRVPHKNMK6587-30-94 12:12:004.94[facility] YncxisiJQCSPBKXKT3462-12-88 12:12:0014.5[facility] WhzriamCQSQZHVAIU8063-39-23 12:12:0043.4[facility] DSSHNUKVEY6274-84-84 12:12:0087.8[facility] IfutgisDKKPQTHIJS9278-98-26 12:12:00* Test Item Value Reference Range Interpretation Comments MCH (test code = MCH) 29.2 pg 27.0-31.0 [facility] OdhiiicHOSBCFLDNH9291-16-89 12:12:0033.3[facility]annHEMATOLOGY 2018-11-30 12:12:0013.1[facility] VgfvameEPVTQCSRIE1536-53-63 12:12:97329Nchybzjf OixlsfnHJMFFAROWN8371-62-35 12:12:008.3[facility] HvzfiseGVVXHMGZJS1366-32-52 12:12:0062.4[facility] IwexcxtFZRXCFFXJL0349-41-05 12:12:0023.3[facility] YENTZPHGCI5071-72-30 12:12:009.5[facility] QcnzjwwTKPAMGONAI9832-41-03 12:12:004.0 [facility] LdttvqdHSPAMRYBMS2029-03-23 12:12:000.8[facility]annHEMATOLOGY 2018-11-30 12:12:004.8[facility] YybcydyJONUVPKGNH8180-22-39 12:12:001.8[facility] XmhqrutBSFWMHQSEA8318-86-39 12:12:000.7[facility] EtkxxhrYVQFDLFAOX7026-22-54 12:12:000.3[facility] XjndhntOUMTGNPIFR9389-07-03 12:12:000.1[facility] NTDVEP5199-74-57 12:12:09806Nzxdxhix HermannCHEM NUQQI5303-26-85 04:50:0070 [facility]annCHE[facility] HKMGJ7375-47-36 04:50:004[facility]annCHEM PANEL 2018-11-30 04:50:000.76[facility]annCHE[facility] RPHBL9080-97-63 04:50:59144Jtoxfavj [facility]CHE[facility] XXFSJ5151-87-92 04:50:003.6[facility]CHE[facility] ITOPH6298-32-11 04:50:65796Rcdkmbip [facility]CHE[facility] QNZIG2781-45-55 04:50:0025[facility]CHE[facility] ZZSDX9430-16-97 04:50:008.9[facility]CHE[facility] JXNWR6391-18-38 04:50:0010.6 [facility]CHE[facility] JNJPP1884-57-78 04:50:06036Bzcjjnqz [facility]annCHEM PANEL 2018-11-30 04:50:002.1[facility]annCHE[facility] LCWEN9493-40-40 04:50:003.5[facility]CHE[facility] XTCAU2479-54-54 10:13:001.9[facility]CHE[facility] VCYXW6678-50-22 10:13:003.6[facility] HermannBACTERIAL - IYXKJEYC2932-78-49 15:41:00Negative (11/28/18 10:41 AM)[facility]ann[facility] TOJJB8288-78-95 15:41:00* Test Item Value Reference Range Interpretation Comments B/C Ratio (test code = B/C Ratio) 12 08-08 [facility] SREWD0629-15-32 15:41:007.3[facility] HermannCHEM PANEL 2018-11-28 15:41:003.9[facility]annCHEM WUKDV8377-09-05 15:41:003.4[facility]annCHEM IKKCI9042-75-43 15:41:00* Test Item Value Reference Range Interpretation Comments A/G Ratio (test code = A/G Ratio) 1.1 1 0.7-1.6 [facility]annCHE[facility] [id number] 15:41:0032[facility]annCHEM PANEL 2018-11-28 15:41:0074[facility]annCHEM IUKGJ6718-89-15 15:41:000.9[facility] HermannCHEM ATTHZ8273-72-85 15:41:0054[facility]annCHEM ORJNZ1747-72-74 15:41:001.91[facility] OayesfeEJHIRJKAUU3357-47-55 15:41:0010.8[facility] [place] MWFETTMPPL4473-11-95 15:41:005.28[facility] MwnwrsiPMVYVFEHPN6513-29-04 15:41:00 15.7[facility] QjocmcxLEGDOEBKOI3383-35-94 15:41:0045.9[facility] HermannHEMATOLOGY 2018-11-28 15:41:0086.9[facility] NptabztFXURWLTIFA1973-26-79 15:41:00* Test Item Value Reference Range Interpretation Comments MCH (test code = MCH) 29.7 pg 27.0-31.0 [facility] RsqqpkcDMPEOBAEWO9905-85-36 15:41:0034.2[facility] HermannHEMATOLOGY 2018-11-28 15:41:0012.7[facility] PxvyfqpVSFWMOTZBR3082-97-05 15:41:64835Ahubprmq DcuzvtzRUMDMGPVFP8450-46-18 15:41:008.3[facility] MutsplgVLGZLSKVGF5231-02-49 15:41:0085.5[facility] FzlfsihBYGYIZDYTS8252-58-92 15:41:007.6[facility] VGSIGTJMBZ1776-84-54 15:41:006.4[facility] VfvuyjjOHKPGDFPEB6146-80-10 15:41:000.2 [facility] RlithnbEGRXWNXFLB4783-51-92 15:41:000.3[facility] HermannHEMATOLOGY 2018-11-28 15:41:009.2[facility] AbrhzbbISGSJSIZKS1943-80-66 15:41:000.8[facility] BrzaulbZXWHLFXDVE3063-74-00 15:41:000.7[facility] HermannSPECIAL CHEMISTRY 2018-11-28 15:41:008.5[facility] GcjnlewCDSAFA7471-67-39 09:32:50117Dbtovfcc CurqwhwDFHCSW1099-90-71 09:32:0025[facility] OypqqltKAHNEO0170-38-38 09:32:00* Test Item Value Reference Range Interpretation Comments CHD Risk (test code = CHD Risk) 11.04 1 4.00-7.30 [facility] EmdxgzpPYLZEC9581-02-84 09:32:00See Note 7*NA*(11/28/18 4:32 AM) [facility] RRZZP1795-08-50 06:16:00Yellow *NA*(11/28/18 1:16 AM) [facility] SHJBR3651-57-46 06:16:00Clear (11/28/18 1:16 AM) [facility] LNFRS0058-79-43 06:16:00* Test Item Value Reference Range Interpretation Comments UA Spec Grav (test code = UA Spec Grav) 1.033 1 [facility] [id number] 06:16:00* Test Item Value Reference Range Interpretation Comments UA pH (test code = UA pH) 5.0 1 5.0-8.0 [facility] FAZWO9187-61-08 06:16:00Negative *NA*(11/28/18 1:16 AM)[facility] JBDLK3179-36-40 06:16:00Negative (11/28/18 1:16 AM) [facility] XTABY9099-18-00 06:16:00Negative (11/28/18 1:16 AM) [facility] KWPMM1511-79-07 06:16:00Negative (11/28/18 1:16 AM) [facility] LTBDS3853-08-24 06:16:002[facility] GIFOA7833-51-40 06:16:002[facility] HermannCHEM UFQVE3628-88-88 04:37:00* Test Item Value Reference Range Interpretation Comments B/C Ratio (test code = B/C Ratio) 15 1 6-25 [facility]annCHEM DXCLS2304-70-82 04:37:004.1[facility] HermannCHEM PANEL 2018-11-28 04:37:0086[facility] HermannCHEM SEDCK8256-68-05 04:37:000.8[facility]annCHEM XBDRI6182-21-59 04:37:007.5[facility]annCHEM NUZZF9484-64-67 04:37:00* Test Item Value Reference Range Interpretation Comments A/G Ratio (test code = A/G Ratio) 1.0 1 0.7-1.6 [facility]annCHE[facility] DFSEP9189-49-47 04:37:0068[facility] HermannCHEM PANEL 2018-11-28 04:37:0071[facility] ZtwonkeTTLYKMPSAO9136-47-57 04:37:000.1[facility] VytfnmtYLGWAXAMYZ8837-12-47 04:37:000.1[facility] OrhouffOKWFHT3505-88-16 11:32:00 * Test Item Value Reference Range Interpretation Comments GLUBED (test code = GLUBED) 118 mg/dL 74-106 H Performed by certified body press operator at [facility] KPKFRW1014-85-72 08:55:00* Test Item Value Reference Range Interpretation Comments GLUBED (test code = GLUBED) 103 mg/dL 74-106 N Performed by certified body press operator at [facility] JKRCRQ0113-68-81 02:57:00* Test Item Value Reference Range Interpretation Comments LIPASE (test code = LIP) 251 U/L 73.0-393.0 N LQJUUH0734-27-85 21:04:00* Test Item Value Reference Range Interpretation Comments GLUBED (test code = GLUBED) 163 mg/dL 74-106 H Performed by certified body press operator at [facility] WEIPFK4116-53-83 16:08:00* Test Item Value Reference Range Interpretation Comments GLUBED (test code = GLUBED) 124 mg/dL 74-106 H Performed by certified body press operator at [facility] [id number] 11:39:00* Test Item Value Reference Range Interpretation Comments GLUBED (test code = GLUBED) 113 mg/dL 74-106 H Performed by certified body press operator at [facility] [id number] 09:57:00* Test Item Value Reference Range Interpretation Comments LIPASE (test code = LIP) 522 U/L 73.0-393.0 H [id number] 07:58:00* Test Item Value Reference Range Interpretation Comments GLUBED (test code = GLUBED) 128 mg/dL 74-106 H Performed by certified body press operator at [facility] CBC W/AUTO [id number] 03:29:00* Test Item Value Reference Range Interpretation [...] (test code = MDIFF) NO COMPREHENSIVE METABOLIC [id number] 03:13:00* Test Item Value Reference Range Interpretation [...] due to change in reagent. COMPREHENSIVE METABOLIC [id number] 03:07:00* Test Item Value Reference Range Interpretation [...] TOTAL (test code = ALKP) IUnit/L 45-117 [id number] 20:17:00* Test Item Value Reference Range Interpretation Comments GLUBED (test code = GLUBED) 126 mg/dL 74-106 H Performed by certified body press operator at [facility] [id number] 17:47:00* Test Item Value Reference Range Interpretation Comments GLUBED (test code = GLUBED) 129 mg/dL 74-106 H Performed by certified body press operator at [facility] LIPID PROFILE (CORONARY RISK)2018-10-17 13:02:00* Test Item [...] LDL result is a direct measurement.========= LACTIC [id number] 12:56:00* Test Item Value Reference Range Interpretation Comments LACTIC ACID (test code = LACT) 1.2 mmol/L 0.4-1.9 N [id number] 12:06:00* Test Item Value Reference Range Interpretation Comments GLUBED (test code = GLUBED) 115 mg/dL 74-106 H Performed by certified body press operator at [facility] [id number] 11:09:00* Test Item Value Reference Range Interpretation Comments LIPASE (test code = LIP) 727 U/L 73.0-393.0 H [id number] 11:07:00* Test Item Value Reference Range Interpretation Comments GLYCOSYLATED HEMOGLOBIN (HA1C) (test code = GLYHGB) 7.8 % HbA1 4. 8-6.0 H ESTIMATED AVERAGE GLUCOSE (test code = EAG) 177 MG/DL LACTIC [id number] 08:57:00* Test Item Value Reference Range Interpretation Comments LACTIC ACID (test code = LACT) 1.1 mmol/L 0.4-1.9 N [id number] 08:02:00* Test Item Value Reference Range Interpretation Comments GLUBED (test code = GLUBED) 149 mg/dL 74-106 H Performed by certified body press operator at [facility] - CT ABD PELVIS [id number] 05:22:00 Name: PHILIPDEANDRE [facility] : 1985 Age/S: 33 / M [address] [facility] Unit #: [id number] Loc: [place] [address] Phys: Cheryl Lawton NP Acct: [id number] Dis Date: Status: REG ER PHONE #: [phone] Exam Date: 10/17/2018 0500 FAX #: [phone] Reason: abdominal pain EXAMS: CPT CODE: [id number] CT ABD PELVIS W/CONT [address] CT abdomen and pelvis with IV contrast. [...] Signed Rep ort (CONTINUED) Name: DEANDRE PHILIP [facility] : 1985 Age/S: 33 / M [address] Unit #: [id number] Loc: D[place] [address] Phys: Cheryl Lawton NP Acct: [id number] Dis Date: Status: REG ER PHONE #: [phone] Exam Date: 10/17/2018 050 FAX #: [phone] Reason: abdominal pain EXAMS: CPT CODE: [id number] CT ABD PELVIS W/CONT 91046 <Continued> at 0522 Reported and signed by: Sandee Fowler M.D. CC: Vivienne Madison MD; Cheryl Lawton NP Technologist:RT MERVIN CTDI: DLP: Trnscb Date/Time: 10/17/2018 (521) [email or web address] Orig Print D/T: S: 10/17/2018 (0525) PAGE 2 Signed Report [id number] 05:06:00* Test Item Value Reference Range Interpretation Comments TROPONIN-I (test code = TROPI) <0.015 ng/mL 0-0.045 N LACTIC [id number] 04:48:00* Test Item Value Reference Range Interpretation Comments LACTIC ACID (test code = LACT) 1.0 mmol/L 0.4-1.9 N URINALYSIS [id number] 04:46:00* Test Item Value Reference Range Interpretation [...] FEW #/LPF FEW Urine Source? Clean CatchURINALYSIS [id number] 04:45:00* Test Item Value Reference Range Interpretation [...] HPF NONE Urine Source? Clean CatchBASIC METABOLIC [id number] 04:45:00* Test Item Value Reference Range Interpretation [...] CA) 9.4 mg/dL 8.5-10.1 N HEPATIC FUNCTION [id number] 04:45:00* Test Item Value Reference Range Interpretation [...] reference range due to change in reagent. [id number] 04:45:00* Test Item Value Reference Range Interpretation Comments LIPASE (test code = LIP) 834 U/L 73.0-393.0 H BASIC METABOLIC [id number] 04:38:00* Test Item Value Reference Range Interpretation [...] code = CA) mg/dL 8.5-10.1 HEPATIC FUNCTION [id number] 04:38:00* Test Item Value Reference Range Interpretation [...] TOTAL (test code = ALKP) IUnit/L 45-117 [id number] 04:38:00* Test Item Value Reference Range Interpretation Comments LIPASE (test code = LIP) U/L 73.0-393.0 CBC W/O [id number] 04:22:00* Test Item Value Reference Range Interpretation [...] MPV) 9.6 fL 6.7-11.0 N CBC W/O [id number] 04:20:00* Test Item Value Reference Range Interpretation [...] MPV) fL 6.7-11.0 - XR CHEST 1 [id number] 04:09:00 FAX: Cheryl Lawton NP [place]: B St: REG Name: DEANDRE SMITH [facility] : [birth year] Age/S: 33/M [address] [facility] Unit #: [id number] Loc: DIGNA [place] [address] Phys: Cheryl Lawton NP Acct: [id number] Dis Date: Status: REG ER PHONE #: [phone] Exam Date: 10/17/2018354 FAX #: [phone] Reason: ABDOMINAL PAIN EXAMS: CPT CODE: [id number] XR CHEST 1 V 06521 Location: T 18 CHEST X- RAY: AP [...] Cheryl Lawton NP Technologist: Scarlet Bell Trnscrd Komal ate/Time/By: 10/17/2018 (0409) : By: [email or web address] Orig Print D/T: S: 04/2018 (0416) PAGE 1 Signed Repor t POC LACTIC [id number] 04:03:00* Test Item Value Reference Range Interpretation Comments POC LACTIC ACID (test code = POCLAC) 2.37 MMOL/L 0.4-2.2 H [id number] 22:22:003.2[facility] [id number] 09:26:00 139[facility]annCHE[facility] GZEGF6857-89-88 09:26:003.0[facility]annCHEM PANEL 2017-09-12 09:26:000.53[facility]annCHEM OKIYU6472-70-77 09:26:84710Owwmzdgj HermannCHEM BCRKV2512-85-88 09:26:11384Dfdpeaal HermannCHEM HJBSB7419-47-75 09:26:004[facility] CQJBR9000-84-92 09:26:15410Xliwvvql [facility]annCHEM JWUJQ3192 09:26:0030[facility]annCHE[facility] WACMS2825-63-53 09:26:0010.0 [facility] KTHZX2855-38-12 09:26:008.2[facility]annHEMATOLOGY 2017-09-12 09:26:00* Test Item Value Reference Range Interpretation Comments MCH (test code = MCH) 29.3 pg 27.0-31.0 [facility] OsopglvVWFOFXTRTO5121-25-81 09:26:73633Vxilfkoi HermannHEMATOLOGY 2017-09-12 09:26:009.0[facility] IyylvojVPMNCUNHUW5080-34-09 09:26:0013.1[facility] QjruihvGZSSGZBBKG1754-11-70 09:26:0034.2[facility] TfibvjqXMDZXLTDCJ2197-58-77 09:26:0085.7[facility] SwoqtekEKDCOMNUIF7705-25-74 09:26:0037.8[facility] CKQGKCZKFH5279-38-19 09:26:005.2[facility] IrjpdsyVYJQFSKYJY3833-87-72 09:26:00 12.9[facility] AcjdepfWPVCHSEBWB0705-59-66 09:26:004.41[facility]annHEMATOLOGY 2017-09-12 09:26:000.6[facility] UxrbmomFUZNFIBAXU7599-47-35 09:26:000.1[facility] VzdsougRZKMEVNIEH1076-62-42 09:26:002.9[facility] VfchqqzEIBAKBBZHU6531-90-14 09:26:001.emorial AifnyyrWZQAJJJCJE4712-63-04 09:26:000.6[facility] [place] CRHCXLHUGR3715-64-50 09:26:0010.9[facility] OawwoyoAZJPIURURC2084-82-36 09:26:00 2.4[facility] FnwlvilNKUPVNYOUI2425-20-66 09:26:0029.9[facility]annHEMATOLOGY 2017-09-12 09:26:0056.2[facility] AxnoccrPJREORXJWA5774-12-66 00:09:0039.7[facility] ChqwxtkGNIWNYGXOU3147-12-82 00:09:0013.5[facility]annCHEM NMGAW2988-02-09 09:48:002.2[facility] BEMFU5392-27-84 09:48:004.0[facility]annCHE[facility] YXXVH2624-32-00 09:48:50791Bozgtgfy HermannCHEM ZAOKZ9192-80-47 09:48:58271 [facility] LQRXB7540-70-96 09:48:006[facility]annCHEM PANEL 2017-09-11 09:48:000.78[facility]annCHE[facility] SQMUO2629-21-49 09:48:57092Jczrifgm [facility]annCHEM AIHOR7781-11-56 09:48:0028[facility] ZNQIB9709-10-44 09:48:0011.5[facility]annCHE[facility] UIKZB5290-49-32 09:48:009.1[facility]annCHEM NEMUA0422-32-79 09:48:003.5[facility]annCHE[facility] HSEYP9916-85-14 09:48:77351 [facility] CnvyvkpPKNTPJRXHS2531-15-50 09:48:000.5[facility]annHEMATOLOGY 2017-09-11 09:48:002.2[facility] EqyaxaiODWOJRIYJI7785-53-05 09:48:0010.7[facility] GzqqhtkLCSWHVTDCW4741-01-11 09:48:003.2[facility] RhwbrlsOHDVHKEYJE9571-82-45 09:48:0039.7[facility] JsrfpthUQAXCUOGDH9898-24-76 09:48:0045.9[facility] QBPMJPJEBV2247-46-51 09:48:000.2[facility] TzqindaRBAKGWWGRZ0570-18-77 09:48:001.9 [facility] RjfplhxFJQMIQBSCU6961-28-13 09:48:000.5[facility]annHEMATOLOGY 2017-09-11 09:48:004.94[facility] JsrqsffDVHCJGRHDB4372-04-77 09:48:004.7[facility] ZwgytpyJBCZMGCQKY2377-89-16 09:48:0014.4[facility] UwqjedgJFNCIZSNSM1490-31-87 09:48:0042.3[facility] EhtyizlRYAQSULIBJ4268-64-28 09:48:0085.7[facility] [place] WFLASPYJDH7332-94-66 09:48:009.5[facility] ErsnjnbMRWKRTKDPO9197-39-08 09:48:00* Test Item Value Reference Range Interpretation Comments MCH (test code = MCH) 29.2 pg 27.0-31.0 [facility] UogxztoJVQRGLCCLV6220-51-35 09:48:0034.1[facility]annHEMATOLOGY 2017-09-11 09:48:37023Bvzpltdy EptagolRZZXNAIGIZ9080-98-54 09:48:0013.5[facility] HermannCARDIAC ZRJNOMS9496-82-79 16:11:00<0.02[facility] HermannCARDIAC ENZYMES 2017-09-10 16:11:0065[facility]annCHEM QIKZO1651-72-76 16:11:55426Juunbbxe HermannCHEM AURXC0766-70-79 16:11:0025[facility]annCHEM RUWSM8294-84-30 16:11:23212Vqaancfs [facility]annCHEM YZDNL4292-10-76 16:11:59919Vrbjeoxw [facility]annCHE[facility] DHTNW8342-39-12 16:11:003[facility]annCHEM DDDPA3894-96-66 16:11:0012.3 [facility]CHE[facility] NAMUQ8902-77-36 16:11:008.6[facility]annCHEM PANEL 2017-09-10 16:11:34225Iqkksxxt HermannCHEM WLWDD0005-14-34 16:11:000.52[facility] HermannCARDIAC UHFXSDT5207-63-01 11:02:0063[facility] HermannCARDIAC ENZYMES 2017-09-10 11:02:00<0.02[facility]annCHEM FHYUN5701-62-10 07:33:002.7[facility]annCHEM CZXSF8706-93-76 07:33:002.5[facility]annCHEM AIUVC3019-63-32 07:33:002.23[facility] LxkhaifODMKBFXQEA7818-50-82 07:33:0058.0[facility] JCVXVQUHZA0582-14-95 07:33:009.2[facility] StvpumpSCGOBVJHKM8963-72-00 07:33:00 29.5[facility] XrsxyeyBMCUGCQMYL4818-83-61 07:33:002.5[facility] HermannHEMATOLOGY 2017-09-10 07:33:003.0[facility] DoqybbfPYCOANTRYY6938-17-69 07:33:000.8[facility] XqhiufyGONPRVFSSP3899-13-57 07:33:000.5[facility] JeswxjfXIAQSPXZDL7867-68-95 07:33:001.5[facility] LmmhsniZSPKRHRVOR1023-13-37 07:33:000.2[facility] [place] FODJRNNTUJ2567-59-35 07:33:000.1[facility] CzpdvxyEMRSUGFRRI0044-67-90 07:33:005.2 [facility] UaopnxdZHEIYNZOPT4130-57-36 07:33:004.61[facility] HermannHEMATOLOGY 2017-09-10 07:33:0084.9[facility] WvaapdsDNVPTPCCFQ5786-49-18 07:33:42632Mknatbjk OlcbnnrBXBDLFZCHJ2670-75-89 07:33:0034.4[facility] KjnuegkAEANSBDSDL8191-65-31 07:33:009.8[facility] QicscipHOYNRUDMYY9142-78-66 07:33:0013.0[facility] UXJBLQPBNJ8153-77-57 07:33:00* Test Item Value Reference Range Interpretation Comments MCH (test code = MCH) 29.2 pg 27.0-31.0 [facility]annCHEM VITSZ2099-32-74 01:58:002.3[facility] HermannCHEM PANEL 2017-09-10 01:58:001.8[facility]annCHEM JDPNF6411-98-16 01:58:002.46[facility]annCHEM MDVOW1644-57-71 22:38:003.73[facility]annCHEM PYJCB1239-54-77 19:36:00<0.1[facility] HermannSPECIAL TOTIWEVFW6549-80-20 19:36:0010.2[facility]annCHEM ZXAAK2610-24-05 17:22:00* Test Item Value Reference Range Interpretation Comments A/G Ratio (test code = A/G Ratio) 1.8 1 0.7-1.6 [facility]annCHE[facility] OUCSF1757-93-55 17:22:00* Test Item Value Reference Range Interpretation Comments B/C Ratio (test code = B/C Ratio) 12 1 6-25 [facility]CHE[facility] RVEWA5335-24-37 17:22:002.6[facility]annCHEM PANEL 2017-09-09 17:22:004.6[facility]annCHEM WKKLM0948-42-46 17:22:0055[facility]annCHEM RLBVA6723-31-77 17:22:0056[facility]annCHEM SHOJT5591-18-30 17:22:84330Ajhbmbjs HermannCHEM GXMOY9185-69-64 17:22:000.4[facility]annCHEM DFUXI2055-04-93 17:22:007.2[facility]annCHEM KNSTS0381-69-15 17:22:38439 [facility] GooxmlvZTOYFJNEGX9878-65-79 17:22:000.1[facility]annURINE AND STOOL 2017-09-09 17:22:00* Test Item Value Reference Range Interpretation Comments UA Spec Grav (test code = UA Spec Grav) 1.032 1 [facility] QTCHG5256-13-91 17:22:00* Test Item Value Reference Range Interpretation Comments UA pH (test code = UA pH) 6.0 1 5.0-8.0 [facility] SSDHF3861-30-02 17:22:001[facility] AND PEEZY0856-27-23 17:22:00Slight *ABN*(09/09/17 12:22 PM)[facility] XTLUT6252-09-92 17:22:001[facility] WIUOW9841-37-72 17:22:00 Negative (09/09/17 12:22 PM)[facility] EEIEL0625-68-25 17:22:00 Negative (09/09/17 12:22 PM)[facility] DRLNW0685-04-08 17:22:00 Negative *NA*(09/09/17 12:22 PM)[facility]UR[facility] AND CSUMU2941-49-50 17:22:00Negative (09/09/17 12:22 PM)[facility] [place]
[2019-12-24 15:23] LABS: BASOPHILS # (AUTO) 0.1 (0.0-0.1); BASOPHILS % 0.7 % (0.0-1.0); EOSINOPHILS # (AUTO) 0.3 (0.0-0.4); EOSINOPHILS % 4.7 % (0.0-6.0); HEMATOCRIT 42.2 % (38.2-49.6); HEMOGLOBIN 15.1 g/dL (14.0-18.0); LYMPHOCYTES # (AUTO) 1.5 (1.0-3.2); LYMPHOCYTES % 20.4 % (18.0-39.1); MEAN CORPUSCULAR HEMOGLOBIN 30.1 pg (28-32); MEAN CORPUSCULAR HGB CONC 35.8 g/dL (31-35); MEAN CORPUSCULAR VOLUME 84.2 fL (81-99); MONOCYTES # (AUTO) 0.5 (0.2-0.8); MONOCYTES % 6.3 % (4.4-11.3); NEUTROPHILS # (AUTO) 4.9 (2.1-6.9); NEUTROPHILS % 67.5 % (38.7-80.0); PLATELET COUNT 232 x10e3/uL (140-360); RED BLOOD COUNT 5.01 x10e6/uL (4.3-5.7)
[2019-12-24 15:57] LABS: ALBUMIN/GLOBULIN RATIO 0.7 (0.8-2.0); ALKALINE PHOSPHATASE 78 IU/L (40-150); ANION GAP 25.6 mmol/L (8-16); BLOOD UREA NITROGEN 10 mg/dL (7-26); BUN/CREATININE RATIO 14 (6-25); CALCIUM 9.3 mg/dL (8.4-10.2); CARBON DIOXIDE 14 mmol/L (22-29); CHLORIDE 96 mmol/L (98-107); CREATINE KINASE 72 IU/L (30-200); CREATININE, SERUM 0.73 mg/dL (0.72-1.25); EST GLOMERULAR FILTRATION RATE > 60 ML/MIN (60-); GLUCOSE 205 mg/dL (74-118); POTASSIUM 4.6 mmol/L (3.5-5.1); SODIUM 131 mmol/L (136-145)
[2019-12-24 16:14] LABS: ALANINE AMINOTRANSFERASE 90 IU/L (0-55)
[2019-12-24] MEDS ORDERED: SODIUM CHLORIDE 0.9% 50ML 50 ML ONE (16:15)
[2019-12-24] MEDS ORDERED: IOPAMIDOL 370 MG/ML 200 ML INFUS..BTL INJ ONE (16:16)
[2019-12-24] MEDS ORDERED: ONDANSETRON HCL INJ 2MG/ML 2ML 2 MG/ML VIAL IV STA ×2 (16:26→23:06)
--- NOTE | 2019-12-24 16:36 | Emergency Department Note ---
History of Present Illnes History of Present Illness Chief Complaint: Abdominal Complaints History of Present Illness This is a 34 year old male . Chief Complaint Comment Patient in from home with complaints of abdominal pain that radiates to his back that started this morning. Patient states that he has a history of pacreatitis and believe that he feels the same way today. Denies nausea, vomiting and diarrhea. Denies urinary symptoms. Last bowel movement this morning. Historian: Patient Arrival Mode: Car Onset (how long ago): day(s) Radiation: Reports non-radiation Severity: mild Duration (how long): day(s) Progression: waxing and waning Chronicity: new Context: Denies recent illness, Denies recent surgery Associated symptoms: Reports loss of appetite, Reports nausea/vomiting ( BRIT RITTER DO) Past Medical/Family History Physician Review I have reviewed the patient's past medical and family history. Any updates have been documented here. (BRIT RITTER DO) Past Medical History Recent Fever: No Clinical Suspicion of Infectio: No New/Unexplained Change in Ment: No Past Medical History: Hypertension, Diabetes, Hyperlipedemia Other Medical History: PANCREATITIS Past Surgical History: Cholecysctectomy (BRIT RITTER DO) Other Last Tetanus: UNKNOWN (BRIT RITTER DO) Review of Systems Review of Systems Constitutional: Reports no symptoms EENTM: Reports no symptoms Cardiovascular: Reports no symptoms Respiratory: Reports no symptoms Gastrointestinal: Reports as per HPI, Reports abdominal pain, Reports nausea, Reports vomiting Genitourinary: Reports no symptoms Musculoskeletal: Reports no symptoms Integumentary: Reports no symptoms Neurological: Reports no symptoms Psychological: Reports no symptoms Endocrine: Reports no symptoms Hematological/Lymphatic: Reports no symptoms (BRIT RITTER DO) Physical Exam Related Data Allergies: Coded Allergies: No Known Allergies (Unverified , 07/04/19) Triage Vital Signs Vital Signs Date Time Temp Pulse Resp B/P (MAP) Pulse Ox O2 Delivery O2 Flow Rate FiO2 12/24/19 14:56 98.4 106 18 155/111 100 Room Air Vital signs reviewed: Yes (BRIT RITTER DO) Physical Exam CONSTITUTIONAL Constitutional: Present well-developed, Present well-nourished, Present obese HENT HENT: Present normocephalic, Present atraumatic, Present oropharynx clear/moist, Present nose normal HENT L/R: Present left ext ear normal, Present right ext ear normal EYES Eyes: Reports PERRL, Reports conjunctivae normal NECK Neck: Present ROM normal PULMONARY Pulmonary: Present effort normal, Present breath sounds normal CARDIOVASCULAR Cardiovascular: Present regular rhythm, Present heart sounds normal, Present capillary refill normal, Present normal rate GASTROINTESTINAL Abdominal: Present soft, Present nontender, Present bowel sounds normal GENITOURINARY Genitourinary: Present exam deferred SKIN Skin: Present warm, Present dry MUSCULOSKELETAL Musculoskeletal: Present ROM normal NEUROLOGICAL Neurological: Present alert, Present oriented x 3, Present no gross motor or sensory deficits PSYCHOLOGICAL Psychological: Present mood/affect normal, Present judgement normal (STONE, BRIT, DO) Results Laboratory Result Diagram: 12/24/19 1505 12/24/19 1505 Laboratory Laboratory Tests Test 12/24/19 15:05 White Blood Count 7.19 x10e3/uL (4.8-10.8) Red Blood Count 5.01 x10e6/uL (4.3-5.7) Hemoglobin 15.1 g/dL (14.0-18.0) Hematocrit 42.2 % (38.2-49.6) Mean Corpuscular Volume 84.2 fL (81-99) Mean Corpuscular Hemoglobin 30.1 pg (28-32) Mean Corpuscular Hemoglobin Concent 35.8 g/dL (31-35) Red Cell Distribution Width 14.0 % (11.7-14.4) Platelet Count 232 x10e3/uL (140-360) Neutrophils (%) (Auto) 67.5 % (38.7-80.0) Lymphocytes (%) (Auto) 20.4 % (18.0-39.1) Monocytes (%) (Auto) 6.3 % (4.4-11.3) Eosinophils (%) (Auto) 4.7 % (0.0-6.0) Basophils (%) (Auto) 0.7 % (0.0-1.0) Neutrophils # (Auto) 4.9 (2.1-6.9) Lymphocytes # (Auto) 1.5 (1.0-3.2) Monocytes # (Auto) 0.5 (0.2-0.8) Eosinophils # (Auto) 0.3 (0.0-0.4) Basophils # (Auto) 0.1 (0.0-0.1) Absolute Immature Granulocyte (auto 0.03 x10e3/uL (0-0.1) Sodium Level 131 mmol/L (136-145) Potassium Level 4.6 mmol/L (3.5-5.1) Chloride Level 96 mmol/L (98-107) Carbon Dioxide Level 14 mmol/L (22-29) Anion Gap 25.6 mmol/L (8-16) Blood Urea Nitrogen 10 mg/dL (7-26) Creatinine 0.73 mg/dL (0.72-1.25) Estimat Glomerular Filtration Rate > 60 ML/MIN (60-) BUN/Creatinine Ratio 14 (6-25) Glucose Level 205 mg/dL (74-118) Calcium Level 9.3 mg/dL (8.4-10.2) Total Bilirubin 0.3 mg/dL (0.2-1.2) Aspartate Amino Transf (AST/SGOT) 56 IU/L (5-34) Alanine Aminotransferase (ALT/SGPT) 90 IU/L (0-55) Alkaline Phosphatase 78 IU/L (40-150) Creatine Kinase 72 IU/L (30-200) Creatine Kinase MB 1.30 ng/mL (0-5.0) Troponin I 0.008 ng/mL (0-0.300) Total Protein 9.8 g/dL (6.5-8.1) Albumin 4.0 g/dL (3.5-5.0) Globulin 5.8 g/dL (2.3-3.5) Albumin/Globulin Ratio 0.7 (0.8-2.0) Lipase 445 U/L (8-78) (STONE, BRIT, DO) Assessment & Plan Medical Decision Making MDM Differential diagnosis includes: pancreatitis, AAA, cholecystitis, choledocholithiasis, cholangitis, mesenteric ischemia, small bowel obstruction, diverticulitis, colitis, appendicitis, Abdominal exam without peritoneal signs. No evidence of acute abdomen at this time. Well appearing. Low suspicion for acute hepatobiliary disease (including acute cholecystitis), PUD (including perforation), acute infectious processes (pneumonia, hepatitis, pyelonephritis), acute appendicitis, vascular catastrophe, bowel obstruction or viscus perforation. Presentation not consistent with other acute, emergent causes of abdominal pain at this time. Plan: labs, UA, CT AP, pain control, serial reassessment Patients symptoms not typical for emergent causes of abdominal pain such as, but not limited to, appendicitis, abdominal aortic aneurysm, surgical biliary disease, pancreatitis, SBO, mesenteric ischemia, serious intra-abdominal bacterial illness. Doubt atypical ACS. Patient continued to complain of pain and required reevaluation. Patient did noted to have elevated lipase, however CT findings were unremarkable for acute pancreatitis. Disposition: Pt signed out to Dr. Quick to re-evaluate and ultimately dispo patient Patient understands that this still may have an early presentation of an emergent medical condition such as appendicitis that will require a recheck. A CT scan was performed to evaluate for potential causes of the abdominal pain, however, neither the clinical exam nor the CT has identified an emergent etiology for the abdominal pain. Specifically, given the benign exam, the laboratory studies, and unremarkable CT, I have a very low suspicion for appendicitis, ischemic bowel, bowel perforation, or any other life threatening disease. I have discussed with the patient the level of uncertainty with undifferentiated abdominal pain and clearly explained the need to follow-up as noted on the discharge instructions, or return to the Emergency Department immediately if the pain worsens, develops fever, persistent and uncontrollable vomiting, or for any new symptoms or concerns. (BRIT RITTER DO) MDM pt requires admission for iv fluids and pain control, no beds available at this facility will require transfer to another hospital for further care i spoke with dr mccabe at [facility] and he accepts pt for transfer. (CARMEN QUICK MD) Assessment & Plan Final Impression: (1) Abdominal pain (BRIT RITTER DO) Final Impression: (1) Abdominal pain (2) Pancreatitis, alcoholic, acute (CARMEN QUICK MD) Depart Disposition: TRANS TO OTHER [facility] F[facility] Last Vital Signs Date Time Temp Pulse Resp B/P (MAP) Pulse Ox O2 Delivery O2 Flow Rate FiO2 12/24/19 14:56 98.4 106 18 155/111 100 Room Air (BRIT RITTER DO) Home Meds Active Scripts Ondansetron Hcl* (ZOFRAN*) 4 Mg Tablet, 4 MG SL Q6H PRN for NAUSEA, #14 MG 0 Refills Prov:BRIT RITTER DO 12/24/19 Tramadol Hcl (ULTRAM) 50 Mg Tablet, 50 MG PO Q6HR PRN for ABDOMINAL PAIN, #14 TAB Prov:BRIT RITTER DO 12/24/19 Glipizide (GLIPIZIDE) 5 Mg Tablet, 5 MG PO BID, #60 TAB Prov:ENOC MUÑIZ CAR HOPPER 07/26/19 Acetaminophen/Codeine* (TYLENOL # 3*) 1 Ea Tab, 1 EA PO Q6H PRN for MODERATE PAIN (4-6), #10 TAB Prov:RYOALCIRILOTIERRA ANDRESZA CAR HOPPER 07/26/19 Amlodipine Besylate (NORVASC) 5 Mg Tab, 5 MG PO DAILY for 30 Days, TAB Prov:ROYALCIRILOTIERRA ANDRESZA CAR HOPPER 07/26/19 Reported Medications Gemfibrozil (GEMFIBROZIL) 600 Mg Tablet, PO HS 09/10/19 Medications in the ED Sodium Chloride 50 ml @ ud STK-MED ONCE .ROUTE ; Start 12/24/19 at 16:15; Stop 12/24/19 at 16:09; Status DC Iopamidol 74,000 mg STK-MED ONCE INJ ; Start 12/24/19 at 16:16; Stop 12/24/19 at 16:09; Status DC Ondansetron HCl 4 mg NOW STAT IV Last administered on 12/24/19at 16:35; Admin Dose 4 MG; Start 12/24/19 at 16:26; Stop 12/24/19 at 16:29; Status DC Ondansetron HCl 4 mg STK-MED ONCE .ROUTE ; Start 12/24/19 at 16:37; Stop 12/24/19 at 16:31; Status DC (BRIT RITTER DO) BRIT RITTER DO Dec 24, 2019 16:36 CARMEN QUICK MD Dec 24, 2019 18:39
[2019-12-24] MEDS ORDERED: ONDANSETRON HCL INJ 2MG/ML 2ML 2 MG/ML VIAL ONE (16:37)
--- NOTE | 2019-12-24 16:40 | Diagnostic Imaging Report ---
CT of the abdomen and pelvis with contrast TECHNIQUE: CT of the abdomen and pelvis WITH intravenous contrast and WITHOUT oral contrast. Dose modulation, iterative reconstruction, and/or weight-based adjustment of the mA/kV was utilized to reduce the radiation dose to as low as reasonably achievable. IV CONTRAST: 100 mL of Isovue-370 ORAL CONTRAST: None RADIATION DOSE: Total DLP: 805 mGy*cm COMPLICATIONS: None INDICATION: ^Y ^abd pain ^[id number] ^1613. COMPARISON: None. FINDINGS: LOWER THORAX: Unremarkable. HEPATOBILIARY: Liver is diffusely hypoattenuating. No focal hepatic lesions. Gallbladder is surgically absent. No biliary ductal dilatation. SPLEEN: No splenomegaly. PANCREAS: No focal masses or ductal dilatation. Previously identified peripancreatic inflammatory changes have resolved. ADRENALS: Indeterminate 1.2 cm left medial adrenal limb nodule. Right adrenal gland is negative for nodule. KIDNEYS/URETERS: Symmetric cortical enhancement without hydronephrosis or perinephric fluid collection. Ureters are not dilated. PELVIC ORGANS/BLADDER: Unremarkable. PERITONEUM/RETROPERITONEUM: No free air or fluid. LYMPH NODES: No lymphadenopathy. VESSELS: Unremarkable. GI TRACT: Lack of oral contrast limits evaluation. Stomach and portions of the colon are decompressed limiting evaluation. Normal appendix is noted. Negative for obstruction. No surrounding inflammatory changes are identified. BONES AND SOFT TISSUES: No acute osseous abnormality. Partially calcified posterior disc bulges noted at L3-4 along with noncalcified disc bulges at L4-5 and L5-S1. Negative for suspicious destructive lesion. Bridging right sacroiliac osteophyte is noted superiorly. Mild narrowing of the hip joints is noted. IMPRESSION: 1. Hepatic steatosis. Postsurgical change from cholecystectomy. 2. Indeterminate 1.2 cm left medial adrenal limb nodule. Finding has been stable on retrospective CTs dated back to 07/04/2019. Consider one-year follow-up adrenal protocol MRI. 3. Scattered degenerative changes of the lower lumbar spine and pelvis as described above. Signed by: Chas Greene MD on 12/24/2019 4:37 PM
[2019-12-24] MEDS ORDERED: ZOFRAN4 MG SL (17:19)
[2019-12-24] MEDS ORDERED: ULTRAM50 MG PO (17:19)
[2019-12-24] MEDS ORDERED: KETOROLAC TROMETHAMINE 30 MG/ML VIAL IV STA (17:21)
[2019-12-24] MEDS ORDERED: SODIUM CHLORIDE 0.9% 1000ML 1,000 ML IV SCH ×2 (17:30→23:15)
[2019-12-24] MEDS ORDERED: MORPHINE SULFATE INJ 4 MG/ML INJ 1ML IV PRN (17:30)
--- NOTE | 2019-12-24 20:00 | NUR ---
patient stated that pain start coming back. Dr Luo give new orders at this time.
[2019-12-24] MEDS ORDERED: HYDROMORPHONE 1MG/1ML INJ IV STA ×2 (20:08→23:06)
[2019-12-24] MEDS ORDERED: SODIUM CHLORIDE 0.9% 1000ML 1,000 ML IV ONE (20:45)
[2019-12-24 20:49] LABS: CHOL/HDL RATIO 21.2 (3.9-4.7); CHOLESTEROL 509 MD/DL (0-199); HDL CHOLESTEROL 24 MG/DL (40-60)
[2019-12-24 20:51] LABS: TRIGLYCERIDES 4590 MG/DL (0-149)
--- NOTE | 2019-12-24 22:58 | NUR ---
Patient c/o abdominal pain again start coming off, Dr Luo made aware with new orders given & carried out.
--- NOTE | 2019-12-24 23:52 | NUR ---
[facility] at bedside for pt report & transport to [facility]
[2019-12-25 00:29] VITALS: BP 140/70
== END 2019-12-24 23:55 | disposition other institution (70) ==
LOC: ER 15:06
DX: R10.13 Epigastric pain (principal); K85.20 Alcohol induced acute pancreatitis without necrosis or infection; R11.2 Nausea with vomiting, unspecified; E11.65 Type 2 diabetes mellitus with hyperglycemia; I10 Essential (primary) hypertension; E78.5 Hyperlipidemia, unspecified
CPT/HCPCS: 36415; 74177; 80053; 80061; 82550; 82553; 83690; 84484; 85025; 99284; J1170; J1885; J2270; J2405; J7030; Q9967

== ENCOUNTER 2020-01-07 18:38 | Inpatient (IN) | payer OTHER, SELFPAY ==
[~2020-01-07] VITALS: Ht 162.6 cm; Wt 100.2 kg
[~2020-01-07 18:38] MED LIST changes: +ULTRAM50 MG PO; +ZOFRAN4 MG SL
[2020-01-07 19:25] LABS: BASOPHILS # (AUTO) 0.1 (0.0-0.1); BASOPHILS % 0.7 % (0.0-1.0); EOSINOPHILS # (AUTO) 0.1 (0.0-0.4); EOSINOPHILS % 0.6 % (0.0-6.0); HEMOGLOBIN 15.9 g/dL (14.0-18.0); LYMPHOCYTES # (AUTO) 1.5 (1.0-3.2); LYMPHOCYTES % 12.4 % (18.0-39.1); MEAN CORPUSCULAR HEMOGLOBIN 31.2 pg (28-32); MEAN CORPUSCULAR HGB CONC 37.9 g/dL (31-35); MEAN CORPUSCULAR VOLUME 82.4 fL (81-99); MONOCYTES # (AUTO) 0.5 (0.2-0.8); MONOCYTES % 4.1 % (4.4-11.3); NEUTROPHILS # (AUTO) 10.1 (2.1-6.9); NEUTROPHILS % 81.9 % (38.7-80.0); PLATELET COUNT 274 x10e3/uL (140-360); RED CELL DISTRIBUTION WIDTH 13.2 % (11.7-14.4)
[2020-01-07 19:38] LABS: ALBUMIN 4.3 g/dL (3.5-5.0); ALBUMIN/GLOBULIN RATIO 0.7 (0.8-2.0); ALKALINE PHOSPHATASE 83 IU/L (40-150); ANION GAP 26.7 mmol/L (8-16); BLOOD UREA NITROGEN 13 mg/dL (7-26); BUN/CREATININE RATIO 16 (6-25); CALCIUM 9.1 mg/dL (8.4-10.2); CARBON DIOXIDE 11 mmol/L (22-29); CHLORIDE 94 mmol/L (98-107); EST GLOMERULAR FILTRATION RATE > 60 ML/MIN (60-); GLUCOSE 270 mg/dL (74-118); POTASSIUM 4.7 mmol/L (3.5-5.1); SODIUM 127 mmol/L (136-145)
[2020-01-07 20:25] LABS: ALANINE AMINOTRANSFERASE 53 IU/L (0-55)
[2020-01-07] MEDS: KETOROLAC TROMETHAMINE 30 MG/ML VIAL IV PRN (20:57)
[2020-01-07] MEDS: LEVOFLOXACIN 500MG/D5W 100ML IV SCH (20:57)
[2020-01-07] MEDS ORDERED: CLONIDINE HCL 0.1 MG TAB PO ONE (21:15)
[2020-01-07] MEDS ORDERED: CLONIDINE HCL 0.1 MG TAB ONE (21:16)
[2020-01-07] MEDS ORDERED: CLONIDINE HCL 0.1 MG TAB PO PRN (22:00)
[2020-01-07 22:01] VITALS: BP 163/110
[2020-01-07] MEDS: ONDANSETRON HCL INJ 2MG/ML 2ML 2 MG/ML VIAL IV PRN (22:30)
[2020-01-07] MEDS: MORPHINE SULFATE INJ 4 MG/ML INJ 1ML IV PRN (22:30)
[2020-01-07 23:08] VITALS: BP 163/110
[2020-01-07 23:13] VITALS: BP 163/110
[2020-01-08] VITALS (20 sets, daily range): BP systolic 97–158; BP diastolic 63–122
[2020-01-08] MEDS: ONDANSETRON HCL INJ 2MG/ML 2ML 2 MG/ML VIAL IV PRN (02:30)
[2020-01-08] MEDS: MORPHINE SULFATE INJ 4 MG/ML INJ 1ML IV PRN (02:30)
[2020-01-08] MEDS ORDERED: HYDROMORPHONE 2MG/ML 2 MG/ML ML IV PRN ×2 (05:15→15:45)
[2020-01-08] MEDS ORDERED: HYDROMORPHONE 2MG/ML 2 MG/ML ML IV ONE (05:15)
[2020-01-08 06:20] LABS: BASOPHILS # (AUTO) 0.1 (0.0-0.1); BASOPHILS % 0.4 % (0.0-1.0); EOSINOPHILS % 0.2 % (0.0-6.0); HEMATOCRIT 44.1 % (38.2-49.6); HEMOGLOBIN 15.5 g/dL (14.0-18.0); LYMPHOCYTES # (AUTO) 1.1 (1.0-3.2); LYMPHOCYTES % 8.3 % (18.0-39.1); MEAN CORPUSCULAR HEMOGLOBIN 29.4 pg (28-32); MEAN CORPUSCULAR HGB CONC 35.1 g/dL (31-35); MEAN CORPUSCULAR VOLUME 83.5 fL (81-99); MONOCYTES # (AUTO) 0.7 (0.2-0.8); MONOCYTES % 4.8 % (4.4-11.3); NEUTROPHILS # (AUTO) 11.5 (2.1-6.9); NEUTROPHILS % 85.8 % (38.7-80.0); PLATELET COUNT 312 x10e3/uL (140-360); RED BLOOD COUNT 5.28 x10e6/uL (4.3-5.7); RED CELL DISTRIBUTION WIDTH 13.5 % (11.7-14.4)
[2020-01-08 08:26] LABS: ALANINE AMINOTRANSFERASE 45 IU/L (0-55); ALBUMIN 3.9 g/dL (3.5-5.0); ALBUMIN/GLOBULIN RATIO 0.8 (0.8-2.0); ALKALINE PHOSPHATASE 74 IU/L (40-150); AMYLASE 825 U/L (25-125); ANION GAP 32.5 mmol/L (8-16); BLOOD UREA NITROGEN 13 mg/dL (7-26); BUN/CREATININE RATIO 13 (6-25); CHLORIDE 95 mmol/L (98-107); CREATININE, SERUM 1.02 mg/dL (0.72-1.25); EST GLOMERULAR FILTRATION RATE > 60 ML/MIN (60-); POTASSIUM 5.5 mmol/L (3.5-5.1); SODIUM 127 mmol/L (136-145)
[2020-01-08 08:29] LABS: GLUCOSE 368 mg/dL (74-118)
[2020-01-08 08:32] LABS: CARBON DIOXIDE 5 mmol/L (22-29)
[2020-01-08] MEDS ORDERED: DEXTROSE 5%/0.45% SOD CHL 1,000 ML IV SCH (08:45)
[2020-01-08] MEDS ORDERED: SODIUM CHLORIDE 0.9% IV SCH ×2 (08:45→11:00)
[2020-01-08 08:51] LABS: LIPASE 2176 U/L (8-78)
[2020-01-08] MEDS ORDERED: SODIUM CHLORIDE 0.9% 1000ML 1,000 ML ONE ×2 (08:56→09:55)
[2020-01-08] MEDS ORDERED: SODIUM CHLORIDE 0.9% 1000ML 1,000 ML IV SCH (10:15)
[2020-01-08] MEDS ORDERED: DEXTROSE 50% SYRINGE 50 ML IV PRN ×2 (10:45→14:00)
[2020-01-08] MEDS ORDERED: SODIUM BICARBONATE 8.4% IV SCH (11:00)
[2020-01-08 11:09] LABS: CHOL/HDL RATIO 27.2 (3.9-4.7); CHOLESTEROL 462 MD/DL (0-199); HDL CHOLESTEROL 17 MG/DL (40-60)
[2020-01-08] MEDS ORDERED: SODIUM CHLORIDE 0.9% 50ML 50 ML ONE (11:22)
[2020-01-08] MEDS ORDERED: IOPAMIDOL 370 MG/ML 200 ML INFUS..BTL INJ ONE (11:22)
[2020-01-08 11:29] LABS: TRIGLYCERIDES 3420 MG/DL (0-149)
[2020-01-08] MEDS: INSULIN REGULAR, HUMAN 3ML VL 100 UNIT in SODIUM CHLORIDE 0.9% 99 ML IV SCH ×2 (11:33)
[2020-01-08 12:53] LABS: BLOOD UREA NITROGEN 19 mg/dL (7-26); BUN/CREATININE RATIO 15 (6-25); CALCIUM 7.4 mg/dL (8.4-10.2); CHLORIDE 99 mmol/L (98-107); EST GLOMERULAR FILTRATION RATE > 60 ML/MIN (60-); POTASSIUM 5.4 mmol/L (3.5-5.1); SODIUM 128 mmol/L (136-145)
[2020-01-08 13:01] LABS: GLUCOSE 408 mg/dL (74-118)
[2020-01-08 13:11] LABS: MAGNESIUM 1.7 MG/DL (1.3-2.1)
[2020-01-08] MEDS ORDERED: INSULIN REGULAR, HUMAN 3ML VL 300 UNIT in SODIUM CHLORIDE 0.45% 100 ML 300 ML IV SCH ×2 (14:00)
[2020-01-08 14:06] LABS: ABG PCO2 47 mmHg (35-45); ABG PH 7.32 (7.35-7.45); ABG PO2 173 mmHg (80-105)
[2020-01-08 14:07] LABS: ABG HCO3 24 mmol/L (22-26); ABG TCO2 25
[2020-01-08 14:42] LABS: ABG HCO3 21 mmol/L (22-26); ABG PCO2 39 mmHg (35-45); ABG PH 7.35 (7.35-7.45); ABG PO2 72 mmHg (80-105); ABG TCO2 23
[2020-01-08] MEDS: SODIUM CHLORIDE 0.9% 1000ML 1,000 ML IV SCH ×3 (15:46→23:00)
[2020-01-08] MEDS ORDERED: METOPROLOL TARTRATE INJ 1 MG/ML VIAL IV PRN (16:30)
[2020-01-08] MEDS ORDERED: HEPARIN SOD (PORCINE) 1000 UNIT/ML SDV ONE (16:41)
[2020-01-08 16:42] LABS: ANION GAP 19.4 mmol/L (8-16)
[2020-01-08 16:43] LABS: CARBON DIOXIDE 15 mmol/L (22-29)
[2020-01-08] MEDS ORDERED: MANNITOL 25% 12.5GM/50 ML VIAL IV PRN (18:00)
[2020-01-08] MEDS ORDERED: HEPARIN SOD (PORCINE) 1000 UNIT/ML SDV IV PRN (18:00)
[2020-01-08] MEDS ORDERED: SODIUM CHLORIDE 0.9% 1000ML 2,000 ML IV PRN (18:00)
[2020-01-08] MEDS: HYDROMORPHONE 1MG/1ML INJ IV PRN ×2 (18:40→22:42)
[2020-01-08] MEDS: FENOFIBRATE 145 MG TAB PO SCH (21:00)
[2020-01-08] MEDS: SIMVASTATIN 40 MG TAB PO SCH (21:00)
[2020-01-08] MEDS: LEVOFLOXACIN 500MG/D5W 100ML IV SCH (21:30)
[2020-01-08] MEDS: HEPARIN SOD (PORCINE) 5,000 UNIT/ML VIAL SC SCH (21:57)
[2020-01-08] MEDS ORDERED: INFLUENZA VIRUS VAC SPLIT INJ 0.5 ML SYR IM SCH (22:27)
[2020-01-09] VITALS (25 sets, daily range): BP systolic 113–155; BP diastolic 70–103
[2020-01-09] MEDS: HYDROMORPHONE 1MG/1ML INJ IV PRN ×9 (02:43→23:18)
[2020-01-09] MEDS: FENOFIBRATE 145 MG TAB PO SCH (02:43)
[2020-01-09] MEDS: SODIUM CHLORIDE 0.9% 1000ML 1,000 ML IV SCH ×2 (04:30→10:19)
[2020-01-09 06:13] LABS: BASOPHILS # (AUTO) 0.1 (0.0-0.1); BASOPHILS % 0.6 % (0.0-1.0); EOSINOPHILS # (AUTO) 0.1 (0.0-0.4); EOSINOPHILS % 1.3 % (0.0-6.0); HEMATOCRIT 37.8 % (38.2-49.6); HEMOGLOBIN 12.5 g/dL (14.0-18.0); LYMPHOCYTES % 11.2 % (18.0-39.1); MEAN CORPUSCULAR HEMOGLOBIN 28.5 pg (28-32); MEAN CORPUSCULAR HGB CONC 33.1 g/dL (31-35); MEAN CORPUSCULAR VOLUME 86.3 fL (81-99); MONOCYTES # (AUTO) 0.5 (0.2-0.8); MONOCYTES % 5.2 % (4.4-11.3); NEUTROPHILS % 81.2 % (38.7-80.0); PLATELET COUNT 183 x10e3/uL (140-360); RED BLOOD COUNT 4.38 x10e6/uL (4.3-5.7); RED CELL DISTRIBUTION WIDTH 14.3 % (11.7-14.4)
[2020-01-09 06:47] LABS: ALANINE AMINOTRANSFERASE 27 IU/L (0-55); ALBUMIN 2.8 g/dL (3.5-5.0); ALBUMIN/GLOBULIN RATIO 0.8 (0.8-2.0); ALKALINE PHOSPHATASE 55 IU/L (40-150); ANION GAP 13.7 mmol/L (8-16); BLOOD UREA NITROGEN 11 mg/dL (7-26); BUN/CREATININE RATIO 16 (6-25); CALCIUM 7.9 mg/dL (8.4-10.2); CARBON DIOXIDE 22 mmol/L (22-29); CHLORIDE 106 mmol/L (98-107); CREATININE, SERUM 0.69 mg/dL (0.72-1.25); EST GLOMERULAR FILTRATION RATE > 60 ML/MIN (60-); GLUCOSE 195 mg/dL (74-118); POTASSIUM 3.7 mmol/L (3.5-5.1); SODIUM 138 mmol/L (136-145)
[2020-01-09] MEDS: THIAMINE HCL 100 MG TAB PO SCH (08:33)
[2020-01-09] MEDS: HEPARIN SOD (PORCINE) 5,000 UNIT/ML VIAL SC SCH ×2 (08:34→21:18)
[2020-01-09] MEDS: INSULIN REGULAR, HUMAN 3ML VL 100 UNIT in SODIUM CHLORIDE 0.9% 99 ML IV SCH ×2 (08:35)
[2020-01-09] MEDS: DEXTROSE 5%/0.45% SOD CHL 1,000 ML IV SCH ×2 (14:23→14:35)
[2020-01-09 16:13] LABS: CLARITY,URINE SL CLOUDY (CLEAR); LEUKOCYTE ESTERASE ,URINE NEGATIVE (NEGATIVE); NITRITE,URINE NEGATIVE (NEGATIVE); PROTEIN,URINE DIPSTICK 2+ (NEGATIVE)
[2020-01-09 16:14] LABS: BILIRUBIN,URINE SMALL (NEGATIVE); COLOR,URINE STRAW (YELLOW); KETONES,URINE 2+ (NEGATIVE); URINE UROBILINOGEN 0.2 mg/dL (0.2 - 1)
[2020-01-09 16:22] LABS: BACTERIA,URINE FEW /HPF; RBC,URINE 0-5 /HPF (0-5)
[2020-01-09] MEDS: DEXTROSE 5%/0.9% SOD CHL 1,000 ML IV SCH (18:42)
[2020-01-09] MEDS: LEVOFLOXACIN 500MG/D5W 100ML IV SCH (19:57)
[2020-01-09] MEDS: SIMVASTATIN 40 MG TAB PO SCH (19:57)
[2020-01-10] VITALS (19 sets, daily range): BP systolic 124–161; BP diastolic 83–113
[2020-01-10] MEDS: HYDROMORPHONE 1MG/1ML INJ IV PRN ×10 (01:22→23:32)
[2020-01-10] MEDS: DEXTROSE 5%/0.9% SOD CHL 1,000 ML IV SCH ×4 (01:45→15:01)
[2020-01-10] MEDS ORDERED: FENOFIBRATE 145 MG TAB PO ONE (04:15)
[2020-01-10 06:05] LABS: ANION GAP 12.4 mmol/L (8-16); BLOOD UREA NITROGEN 5 mg/dL (7-26); BUN/CREATININE RATIO 8 (6-25); CALCIUM 8.4 mg/dL (8.4-10.2); CARBON DIOXIDE 23 mmol/L (22-29); CHLORIDE 104 mmol/L (98-107); CREATININE, SERUM 0.66 mg/dL (0.72-1.25); EST GLOMERULAR FILTRATION RATE > 60 ML/MIN (60-); GLUCOSE 221 mg/dL (74-118); POTASSIUM 3.4 mmol/L (3.5-5.1); SODIUM 136 mmol/L (136-145)
[2020-01-10 06:43] LABS: BASOPHILS % 0.5 % (0.0-1.0); EOSINOPHILS # (AUTO) 0.4 (0.0-0.4); EOSINOPHILS % 4.5 % (0.0-6.0); HEMATOCRIT 32.2 % (38.2-49.6); HEMOGLOBIN 10.7 g/dL (14.0-18.0); LYMPHOCYTES # (AUTO) 1.4 (1.0-3.2); LYMPHOCYTES % 16.1 % (18.0-39.1); MEAN CORPUSCULAR HEMOGLOBIN 28.6 pg (28-32); MEAN CORPUSCULAR HGB CONC 33.2 g/dL (31-35); MEAN CORPUSCULAR VOLUME 86.1 fL (81-99); MONOCYTES # (AUTO) 0.6 (0.2-0.8); MONOCYTES % 7.3 % (4.4-11.3); NEUTROPHILS # (AUTO) 6.1 (2.1-6.9); NEUTROPHILS % 71.1 % (38.7-80.0); PLATELET COUNT 155 x10e3/uL (140-360); RED BLOOD COUNT 3.74 x10e6/uL (4.3-5.7); RED CELL DISTRIBUTION WIDTH 14.2 % (11.7-14.4)
[2020-01-10] MEDS: THIAMINE HCL 100 MG TAB PO SCH ×3 (07:40→12:45)
[2020-01-10] MEDS: FENOFIBRATE 145 MG TAB PO SCH (07:43)
[2020-01-10] MEDS: HEPARIN SOD (PORCINE) 5,000 UNIT/ML VIAL SC SCH ×2 (07:44→20:17)
[2020-01-10] MEDS ORDERED: POTASSIUM CHLORIDE 20 MEQ TAB CR PO ONE ×2 (10:40→16:33)
[2020-01-10] MEDS: KETOROLAC TROMETHAMINE 30 MG/ML VIAL IV PRN (20:00)
[2020-01-10] MEDS: SIMVASTATIN 40 MG TAB PO SCH (20:14)
[2020-01-10] MEDS: LEVOFLOXACIN 500MG/D5W 100ML IV SCH (20:14)
[2020-01-10] MEDS: INSULIN GLARGINE 100 UNITS/ML VIAL SQ SCH (20:17)
[2020-01-10] MEDS: INSULIN REGULAR, HUMAN 3ML VL 100 UNIT in SODIUM CHLORIDE 0.9% 99 ML IV SCH ×2 (20:20)
[2020-01-11] VITALS (10 sets, daily range): BP systolic 139–158; BP diastolic 72–100
[2020-01-11] MEDS: HYDROMORPHONE 1MG/1ML INJ IV PRN ×7 (01:45→22:50)
[2020-01-11] MEDS: DEXTROSE 5%/0.9% SOD CHL 1,000 ML IV SCH ×2 (02:08→11:03)
[2020-01-11] MEDS: INSULIN REGULAR, HUMAN 3ML VL 100 UNIT in SODIUM CHLORIDE 0.9% 99 ML IV SCH ×2 (04:00)
[2020-01-11 05:32] LABS: ALANINE AMINOTRANSFERASE 57 IU/L (0-55); ALBUMIN 2.6 g/dL (3.5-5.0); ALBUMIN/GLOBULIN RATIO 0.7 (0.8-2.0); ALKALINE PHOSPHATASE 77 IU/L (40-150); AMYLASE 44 U/L (25-125); ANION GAP 12.4 mmol/L (8-16); BLOOD UREA NITROGEN 6 mg/dL (7-26); BUN/CREATININE RATIO 9 (6-25); CALCIUM 8.5 mg/dL (8.4-10.2); CARBON DIOXIDE 24 mmol/L (22-29); CHLORIDE 105 mmol/L (98-107); CREATININE, SERUM 0.65 mg/dL (0.72-1.25); EST GLOMERULAR FILTRATION RATE > 60 ML/MIN (60-); GLUCOSE 181 mg/dL (74-118); LIPASE 127 U/L (8-78); POTASSIUM 3.4 mmol/L (3.5-5.1); SODIUM 138 mmol/L (136-145)
[2020-01-11] MEDS: FENOFIBRATE 145 MG TAB PO SCH (08:28)
[2020-01-11] MEDS: THIAMINE HCL 100 MG TAB PO SCH (08:29)
[2020-01-11] MEDS: HEPARIN SOD (PORCINE) 5,000 UNIT/ML VIAL SC SCH ×2 (08:30→21:00)
[2020-01-11] MEDS: INSULIN GLARGINE 100 UNITS/ML VIAL SQ SCH ×2 (11:03→22:58)
[2020-01-11] MEDS: INSULIN LISPRO 100 UNIT/1 ML 3ML VIAL SQ SCH ×4 (12:39→22:57)
[2020-01-11] MEDS ORDERED: POTASSIUM CHLORIDE 20 MEQ TAB CR PO STA (21:00)
[2020-01-11] MEDS: LEVOFLOXACIN 500MG/D5W 100ML IV SCH (22:27)
[2020-01-11] MEDS: SIMVASTATIN 40 MG TAB PO SCH (22:27)
[2020-01-11] MEDS ORDERED: SODIUM CHLORIDE 0.9% 250ML 250 ML ONE (22:27)
[2020-01-12] MEDS: HYDROMORPHONE 1MG/1ML INJ IV PRN ×3 (02:00→08:30)
[2020-01-12 04:00] VITALS: BP 109/71
[2020-01-12 06:08] LABS: ANION GAP 12.7 mmol/L (8-16); BLOOD UREA NITROGEN 9 mg/dL (7-26); BUN/CREATININE RATIO 12 (6-25); CALCIUM 9.4 mg/dL (8.4-10.2); CARBON DIOXIDE 28 mmol/L (22-29); CHLORIDE 101 mmol/L (98-107); CREATININE, SERUM 0.78 mg/dL (0.72-1.25); EST GLOMERULAR FILTRATION RATE > 60 ML/MIN (60-); GLUCOSE 364 mg/dL (74-118); POTASSIUM 3.7 mmol/L (3.5-5.1); SODIUM 138 mmol/L (136-145)
[2020-01-12 06:35] LABS: AMYLASE 41 U/L (25-125); LIPASE 139 U/L (8-78); TRIGLYCERIDES 515 MG/DL (0-149)
[2020-01-12 08:00] VITALS: BP 121/70
[2020-01-12] MEDS: THIAMINE HCL 100 MG TAB PO SCH (08:30)
[2020-01-12] MEDS: INSULIN LISPRO 100 UNIT/1 ML 3ML VIAL SQ SCH ×4 (08:30→12:30)
[2020-01-12] MEDS: HEPARIN SOD (PORCINE) 5,000 UNIT/ML VIAL SC SCH (08:30)
[2020-01-12] MEDS: INSULIN GLARGINE 100 UNITS/ML VIAL SQ SCH (08:30)
[2020-01-12] MEDS: FENOFIBRATE 145 MG TAB PO SCH (08:30)
[2020-01-12 09:22] VITALS: BP 121/70
[2020-01-12] MEDS ORDERED: LISINOPRIL10 MG PO (11:57)
[2020-01-12] MEDS ORDERED: LEVOFLOXACIN250 MG PO (11:58)
[2020-01-12] MEDS ORDERED: PROTONIX40 MG PO (11:59)
[2020-01-12] MEDS ORDERED: SIMVASTATIN40 MG PO (11:59)
[2020-01-12] MEDS ORDERED: CLONIDINE HCL0.1 MG PO (12:01)
[2020-01-12] MEDS ORDERED: TRICOR145 MG PO (12:02)
[2020-01-12] MEDS ORDERED: LANTUS 3ML100 UNITS/ SC (12:03)
[2020-01-12] MEDS ORDERED: HUMALOG100 UNIT/3 SC (12:04)
[2020-01-12 12:13] VITALS: BP 137/85
== END 2020-01-12 13:43 | disposition home or self-care (01) | DRG 438 ==
LOC: ER 18:40 → ERHOLD 20:54 → MED/SURG3 22:00 → ICU 01-08 09:20 → OBSVTOIN 01-09 08:23 → MED/SURG 01-11 15:29
PROC: 5A1D70Z Performance of Urinary Filtration, Intermittent, Less than 6 Hours Per Day (ICD-10-PCS; principal; 2020-01-08)
PROC: 02HV33Z Insertion of Infusion Device into Superior Vena Cava, Percutaneous Approach (ICD-10-PCS; 2020-01-08)
PROC: B548ZZA Ultrasonography of Superior Vena Cava, Guidance (ICD-10-PCS; 2020-01-08)
DX: K85.20 Alcohol induced acute pancreatitis without necrosis or infection (principal); E11.10 Type 2 diabetes mellitus with ketoacidosis without coma; N17.9 Acute kidney failure, unspecified; I16.9 Hypertensive crisis, unspecified; E87.2 Acidosis; E87.1 Hypo-osmolality and hyponatremia; E87.5 Hyperkalemia; I10 Essential (primary) hypertension; E78.5 Hyperlipidemia, unspecified; F10.10 Alcohol abuse, uncomplicated; E78.1 Pure hyperglyceridemia; E66.01 Morbid (severe) obesity due to excess calories; Z68.37 Body mass index [BMI] 37.0-37.9, adult; Z90.49 Acquired absence of other specified parts of digestive tract; Z20.828 Contact with and (suspected) exposure to other viral communicable diseases; Z79.4 Long term (current) use of insulin
CPT/HCPCS: 36415; 36556; 36600; 71045; 74177; 74470; 76937; 77001; 80048; 80053; 80061; 81001; 82150; 82805; 82948; 83036; 83690; 83735; 84100; 84478; 85025; 86704; 86705; 86706; 87086; 87340; 93005; 94660; 97139; 99284; G0378; J1170; J1644; J1815; J1817; J1885; J1956; J2150; J2270; J2405; J3411; J7030; J7042; J7050; Q9967; U0002